=== PATIENT | male | born 1955 | race Caucasian/White ===

== ENCOUNTER → 2020-09-15 13:39 | Outpatient (BNVA) | payer MEDICARE, SELFPAY | PROVIDERS: PCP Internal Medicine; Referring Provider Internal Medicine; Visit Provider Internal Medicine | DX: I48.92 Unspecified atrial flutter (principal); Z51.81 Encounter for therapeutic drug level monitoring; Z79.01 Long term (current) use of anticoagulants | CPT/HCPCS: 85610 ==

== ENCOUNTER → 2020-10-13 13:00 | Outpatient (BNVA) | payer MEDICARE, SELFPAY | PROVIDERS: PCP Internal Medicine; Visit Provider Internal Medicine | DX: I48.92 Unspecified atrial flutter (principal); Z51.81 Encounter for therapeutic drug level monitoring; Z79.01 Long term (current) use of anticoagulants | CPT/HCPCS: 85610; 99211 ==

== ENCOUNTER → 2020-11-09 14:30 | Outpatient (BNVA) | payer MEDICARE, SELFPAY | PROVIDERS: PCP Internal Medicine; Visit Provider Internal Medicine | DX: I48.92 Unspecified atrial flutter (principal); Z51.81 Encounter for therapeutic drug level monitoring; Z79.01 Long term (current) use of anticoagulants | CPT/HCPCS: 85610; 99211 ==

== ENCOUNTER → 2020-11-21 14:22 | Outpatient (BNVA) | payer MEDICARE, SELFPAY | PROVIDERS: PCP Internal Medicine; Visit Provider Internal Medicine | DX: I48.92 Unspecified atrial flutter (principal); Z51.81 Encounter for therapeutic drug level monitoring; Z79.01 Long term (current) use of anticoagulants | CPT/HCPCS: 85610; 99211 ==

== ENCOUNTER → 2020-12-05 14:43 | Outpatient (BNVA) | payer MEDICARE, SELFPAY | PROVIDERS: PCP Internal Medicine; Visit Provider Internal Medicine | DX: I48.92 Unspecified atrial flutter (principal); Z51.81 Encounter for therapeutic drug level monitoring; Z79.01 Long term (current) use of anticoagulants | CPT/HCPCS: 85610; 99211 ==

== ENCOUNTER → 2020-12-26 14:19 | Outpatient (BNVA) | payer MEDICARE, SELFPAY | PROVIDERS: PCP Internal Medicine; Visit Provider Internal Medicine | DX: I48.92 Unspecified atrial flutter (principal); Z79.01 Long term (current) use of anticoagulants; Z51.81 Encounter for therapeutic drug level monitoring | CPT/HCPCS: 85610; 99211 ==

== ENCOUNTER → 2021-01-23 13:51 | Outpatient (BNVA) | payer MEDICARE, SELFPAY | PROVIDERS: PCP Internal Medicine; Visit Provider Internal Medicine | DX: I48.92 Unspecified atrial flutter (principal); Z51.81 Encounter for therapeutic drug level monitoring; Z79.01 Long term (current) use of anticoagulants | CPT/HCPCS: 85610; 99211 ==

== ENCOUNTER → 2021-02-23 13:58 | Outpatient (BNVA) | payer MEDICARE, SELFPAY | PROVIDERS: PCP Internal Medicine; Visit Provider Internal Medicine | DX: I48.92 Unspecified atrial flutter (principal); Z51.81 Encounter for therapeutic drug level monitoring; Z79.01 Long term (current) use of anticoagulants | CPT/HCPCS: 85610; 99211 ==

== ENCOUNTER → 2021-03-10 13:23 | Outpatient (BNVA) | payer MEDICARE, SELFPAY | PROVIDERS: PCP Internal Medicine; Visit Provider Internal Medicine | DX: I48.92 Unspecified atrial flutter (principal); Z79.01 Long term (current) use of anticoagulants; Z51.81 Encounter for therapeutic drug level monitoring | CPT/HCPCS: 85610; 99211 ==

== ENCOUNTER → 2021-03-29 13:41 | Outpatient (BNVA) | payer MEDICARE, SELFPAY | PROVIDERS: PCP Internal Medicine; Visit Provider Internal Medicine | DX: I48.92 Unspecified atrial flutter (principal); Z51.81 Encounter for therapeutic drug level monitoring; Z79.01 Long term (current) use of anticoagulants | CPT/HCPCS: 85610; 99211 ==

== ENCOUNTER → 2021-04-28 08:52 | Outpatient (BNVA) | payer MEDICARE, SELFPAY | PROVIDERS: PCP Internal Medicine; Visit Provider Internal Medicine | DX: I48.92 Unspecified atrial flutter (principal); Z51.81 Encounter for therapeutic drug level monitoring; Z79.01 Long term (current) use of anticoagulants | CPT/HCPCS: 85610; 99211 ==

== ENCOUNTER → 2021-05-26 13:42 | Outpatient (BNVA) | payer MEDICARE, SELFPAY | PROVIDERS: PCP Internal Medicine; Visit Provider Internal Medicine | DX: I48.92 Unspecified atrial flutter (principal); Z51.81 Encounter for therapeutic drug level monitoring; Z79.01 Long term (current) use of anticoagulants | CPT/HCPCS: 85610; 99211 ==

== ENCOUNTER → 2021-06-30 13:55 | Outpatient (BNVA) | payer MEDICARE, SELFPAY | PROVIDERS: PCP Internal Medicine; Visit Provider Internal Medicine | DX: I48.92 Unspecified atrial flutter (principal); Z51.81 Encounter for therapeutic drug level monitoring; Z79.01 Long term (current) use of anticoagulants | CPT/HCPCS: 85610; 99211 ==

== ENCOUNTER → 2021-08-09 09:31 | Outpatient (BNVA) | payer MEDICARE, SELFPAY | PROVIDERS: PCP Internal Medicine; Visit Provider Internal Medicine | DX: I48.92 Unspecified atrial flutter (principal); Z51.81 Encounter for therapeutic drug level monitoring; Z79.01 Long term (current) use of anticoagulants | CPT/HCPCS: 85610; 99211 ==

== ENCOUNTER → 2021-09-08 13:39 | Outpatient (BNVA) | payer MEDICARE, SELFPAY | PROVIDERS: PCP Internal Medicine; Visit Provider Internal Medicine | DX: I48.92 Unspecified atrial flutter (principal); Z51.81 Encounter for therapeutic drug level monitoring; Z79.01 Long term (current) use of anticoagulants | CPT/HCPCS: 85610; 99211 ==

== ENCOUNTER → 2021-10-06 13:49 | Outpatient (BNVA) | payer MEDICARE, SELFPAY | PROVIDERS: PCP Internal Medicine; Visit Provider Internal Medicine | DX: I48.92 Unspecified atrial flutter (principal); Z51.81 Encounter for therapeutic drug level monitoring; Z79.01 Long term (current) use of anticoagulants | CPT/HCPCS: 85610; 99211 ==

== ENCOUNTER → 2021-11-03 14:18 | Outpatient (BNVA) | payer MEDICARE, SELFPAY | PROVIDERS: PCP Internal Medicine; Visit Provider Internal Medicine | DX: I48.92 Unspecified atrial flutter (principal); Z51.81 Encounter for therapeutic drug level monitoring; Z79.01 Long term (current) use of anticoagulants | CPT/HCPCS: 85610; 99211 ==

== ENCOUNTER → 2021-12-08 13:29 | Outpatient (BNVA) | payer MEDICARE, SELFPAY | PROVIDERS: PCP Internal Medicine; Visit Provider Internal Medicine | DX: I48.92 Unspecified atrial flutter (principal); Z51.81 Encounter for therapeutic drug level monitoring; Z79.01 Long term (current) use of anticoagulants | CPT/HCPCS: 85610; 99211 ==

== ENCOUNTER → 2021-12-22 13:37 | Outpatient (BNVA) | payer MEDICARE, SELFPAY | PROVIDERS: PCP Internal Medicine; Visit Provider Internal Medicine | DX: I48.92 Unspecified atrial flutter (principal); Z51.81 Encounter for therapeutic drug level monitoring; Z79.01 Long term (current) use of anticoagulants | CPT/HCPCS: 85610; 99211 ==

== ENCOUNTER → 2022-01-19 13:59 | Outpatient (BNVA) | payer MEDICARE, SELFPAY | PROVIDERS: PCP Internal Medicine; Visit Provider Internal Medicine | DX: I48.92 Unspecified atrial flutter (principal); Z51.81 Encounter for therapeutic drug level monitoring; Z79.01 Long term (current) use of anticoagulants | CPT/HCPCS: 85610; 99211 ==

== ENCOUNTER → 2022-02-14 14:53 | Outpatient (BNVA) | payer MEDICARE, SELFPAY | PROVIDERS: PCP Internal Medicine; Visit Provider Internal Medicine | DX: I48.92 Unspecified atrial flutter (principal); Z51.81 Encounter for therapeutic drug level monitoring; Z79.01 Long term (current) use of anticoagulants | CPT/HCPCS: 85610; 99211 ==

== ENCOUNTER → 2022-03-14 13:40 | Outpatient (BNVA) | payer MEDICARE, SELFPAY | PROVIDERS: PCP Internal Medicine; Visit Provider Internal Medicine | DX: I48.92 Unspecified atrial flutter (principal); Z79.01 Long term (current) use of anticoagulants; Z51.81 Encounter for therapeutic drug level monitoring | CPT/HCPCS: 85610; 99211 ==

== ENCOUNTER → 2022-04-04 13:57 | Outpatient (BNVA) | payer MEDICARE, SELFPAY | PROVIDERS: PCP Internal Medicine; Visit Provider Internal Medicine | DX: I48.92 Unspecified atrial flutter (principal); Z79.01 Long term (current) use of anticoagulants; Z51.81 Encounter for therapeutic drug level monitoring | CPT/HCPCS: 85610; 99211 ==

== ENCOUNTER → 2022-05-09 13:54 | Outpatient (BNVA) | payer MEDICARE, SELFPAY | PROVIDERS: PCP Internal Medicine; Visit Provider Internal Medicine | DX: I48.92 Unspecified atrial flutter (principal); Z51.81 Encounter for therapeutic drug level monitoring; Z79.01 Long term (current) use of anticoagulants | CPT/HCPCS: 85610; 99211 ==

== ENCOUNTER → 2022-06-06 13:54 | Outpatient (BNVA) | payer MEDICARE, SELFPAY | PROVIDERS: PCP Internal Medicine; Visit Provider Internal Medicine | DX: Z79.01 Long term (current) use of anticoagulants (principal) | CPT/HCPCS: 85610; 99211 ==

== ENCOUNTER → 2022-07-04 13:00 | Outpatient (BNVA) | payer MEDICARE, SELFPAY | PROVIDERS: PCP Internal Medicine; Visit Provider Internal Medicine | DX: I48.92 Unspecified atrial flutter (principal); Z79.01 Long term (current) use of anticoagulants; Z51.81 Encounter for therapeutic drug level monitoring | CPT/HCPCS: 85610; 99211 ==

== ENCOUNTER → 2022-07-31 13:42 | Outpatient (BNVA) | payer MEDICARE, SELFPAY | PROVIDERS: PCP Internal Medicine; Visit Provider Internal Medicine | DX: I48.92 Unspecified atrial flutter (principal); Z51.81 Encounter for therapeutic drug level monitoring; Z79.01 Long term (current) use of anticoagulants | CPT/HCPCS: 85610; 99211 ==

== ENCOUNTER → 2022-08-07 13:06 | Outpatient (BNVA) | payer MEDICARE, SELFPAY | PROVIDERS: PCP Internal Medicine; Visit Provider Internal Medicine | DX: I48.92 Unspecified atrial flutter (principal); Z79.01 Long term (current) use of anticoagulants; Z51.81 Encounter for therapeutic drug level monitoring | CPT/HCPCS: 85610; 99211 ==

== ENCOUNTER → 2022-09-03 13:49 | Outpatient (BNVA) | payer MEDICARE, SELFPAY | PROVIDERS: PCP Internal Medicine; Visit Provider Internal Medicine | DX: I48.92 Unspecified atrial flutter (principal); Z79.01 Long term (current) use of anticoagulants; Z51.81 Encounter for therapeutic drug level monitoring | CPT/HCPCS: 85610; 99211 ==

== ENCOUNTER → 2022-09-18 13:25 | Outpatient (BNVA) | payer MEDICARE, SELFPAY | PROVIDERS: PCP Internal Medicine; Visit Provider Internal Medicine | DX: I48.92 Unspecified atrial flutter (principal); Z79.01 Long term (current) use of anticoagulants; Z51.81 Encounter for therapeutic drug level monitoring | CPT/HCPCS: 85610; 99211 ==

== ENCOUNTER → 2022-10-16 13:48 | Outpatient (BNVA) | payer MEDICARE, SELFPAY | PROVIDERS: PCP Internal Medicine; Visit Provider Internal Medicine | DX: I48.92 Unspecified atrial flutter (principal); Z51.81 Encounter for therapeutic drug level monitoring; Z79.01 Long term (current) use of anticoagulants | CPT/HCPCS: 85610; 99212 ==

== ENCOUNTER → 2022-11-20 13:43 | Outpatient (BNVA) | payer MEDICARE, SELFPAY | PROVIDERS: PCP Internal Medicine; Visit Provider Internal Medicine | DX: I48.92 Unspecified atrial flutter (principal); Z79.01 Long term (current) use of anticoagulants; Z51.81 Encounter for therapeutic drug level monitoring | CPT/HCPCS: 85610; 99211 ==

== ENCOUNTER → 2022-12-21 13:41 | Outpatient (BNVA) | payer MEDICARE, SELFPAY | PROVIDERS: PCP Internal Medicine; Visit Provider Internal Medicine | DX: I48.92 Unspecified atrial flutter (principal); Z79.01 Long term (current) use of anticoagulants; Z51.81 Encounter for therapeutic drug level monitoring | CPT/HCPCS: 85610; 99211 ==

== ENCOUNTER → 2023-01-23 13:59 | Outpatient (BNVA) | payer MEDICARE, SELFPAY | PROVIDERS: PCP Internal Medicine; Visit Provider Internal Medicine | DX: I48.92 Unspecified atrial flutter (principal); Z79.01 Long term (current) use of anticoagulants; Z51.81 Encounter for therapeutic drug level monitoring | CPT/HCPCS: 85610; 99211 ==

== ENCOUNTER → 2023-02-18 09:36 | Outpatient (BNVA) | payer MEDICARE, SELFPAY | PROVIDERS: PCP Internal Medicine; Visit Provider Internal Medicine | DX: I48.92 Unspecified atrial flutter (principal); Z79.01 Long term (current) use of anticoagulants; Z51.81 Encounter for therapeutic drug level monitoring | CPT/HCPCS: 85610; 99211 ==

== ENCOUNTER → 2023-03-20 13:50 | Outpatient (BNVA) | payer MEDICARE, SELFPAY | PROVIDERS: PCP Internal Medicine; Visit Provider Internal Medicine | DX: I48.92 Unspecified atrial flutter (principal); Z79.01 Long term (current) use of anticoagulants; Z51.81 Encounter for therapeutic drug level monitoring | CPT/HCPCS: 85610; 99211 ==

== ENCOUNTER → 2023-04-10 14:02 | Outpatient (BNVA) | payer MEDICARE, SELFPAY | PROVIDERS: PCP Internal Medicine; Visit Provider Internal Medicine | DX: I48.92 Unspecified atrial flutter (principal); Z79.01 Long term (current) use of anticoagulants; Z51.81 Encounter for therapeutic drug level monitoring | CPT/HCPCS: 85610; 99211 ==

== ENCOUNTER → 2023-04-16 14:06 | Outpatient (BNVA) | payer MEDICARE, SELFPAY | PROVIDERS: PCP Internal Medicine; Visit Provider Internal Medicine | DX: I48.92 Unspecified atrial flutter (principal); Z79.01 Long term (current) use of anticoagulants; Z51.81 Encounter for therapeutic drug level monitoring | CPT/HCPCS: 85610; 99211 ==

== ENCOUNTER → 2023-05-14 14:32 | Outpatient (BNVA) | payer MEDICARE, SELFPAY | PROVIDERS: PCP Internal Medicine; Visit Provider Internal Medicine | DX: I48.92 Unspecified atrial flutter (principal); Z79.01 Long term (current) use of anticoagulants; Z51.81 Encounter for therapeutic drug level monitoring | CPT/HCPCS: 85610; 99211 ==

== ENCOUNTER 2023-06-11 14:38 | Outpatient (AMB) | payer MEDICARE, SELFPAY ==
[2023-06-11 14:52] LABS: Prothrombin Time Whole Bld POC 35.3 sec (11.1-13.5); ~PT, ~INR - Anti Coag Clinic 2.9 (0.9-1.1)
--- NOTE | 2023-06-11 15:06 | MHC.OFFVISCO ---
Intake Intake Visit Reasons: Anticoagulation Allergies No Known Allergies Allergy (Verified 06/11/23 14:41) Medication List - Last Reconciled 06/11/23 by Ivana Ritchie RN abiraterone 1,000 mg PO DAILY bicalutamide (Casodex) 50 mg PO DAILY citalopram 20 mg PO DAILY cyclobenzaprine 5 mg PO BEDTIME PRN diltiazem HCl ER mg PO furosemide 40 mg PO DAILY leuprolide (Lupron Depot) IM levothyroxine 100 mcg PO DAILY losartan 100 mg PO DAILY metformin mg PO nitroglycerin 0.4 mg sublingual pantoprazole 40 mg PO DAILY pravastatin mg PO prednisone 5 mg PO DAILY tramadol 50 mg PO BID PRN warfarin (Jantoven) 5 mg See Protocol PO DAILY Nursing Note INR: 2.9 in therapeutic range Medications and supplements reviewed PT DX WITH PROSTATE CANCER 04/2023 AND HAS STARTED TREATMENT: CASODEX 50MG PO DAILY ( CAN RAISE THE INR - ONSET DELAYED) ON NOW X 1 MONTH ABIRATERONE(ZYTIGA) 1000MG PO DAILY PREDNISONE 5MG PO DAILY LUPRON Q 3 MONTHS 07/09/23 PROSTATE RADIATION SEEDS TO BE IMPLANTED AND TO BE OFF WAFARIN X 1 WEEK PRIOR. CALCIUM 1200MG PO DAILY VIT D3 DAILY HAS BRUISING ON HIS ARMS - NOT MORE THAN USUAL Bleeding, bruising, clotting discussed Nutritional guidance given - INCREASE GREENS JUST A LITTLE Dose: KEEP SAME DOSE FOR NOW 5MG X 4 DAYS/ 2.5MG MWF F/U INR: 07/01/23 WILL CALL UROLOGY IF INR IS TO BE SENT TO THEM PRIOR PROCEDURE Patient verbalizes understanding of instructions given Coding Level of Care Code Est Patient Level 1 Diagnoses Current use of anticoagulant therapy Z79.01 Assessment & Plan Assessment & Plan (1) Current use of anticoagulant therapy: Code(s): Z79.01 - prison (current) use of anticoagulants Category: Medical Medications: New bicalutamide (Casodex) 50 mg PO DAILY prednisone 5 mg PO DAILY abiraterone must be taken on empty stomach, at least 1 hr before or 2 hrs after a meal/food 1,000 mg PO DAILY leuprolide (Lupron Depot) IM [CALCIUM] PO cholecalciferol (vitamin D3) (Vitamin D3) PO
== END 2023-06-11 15:21 | disposition home or self-care (01) ==
LOC: HO.ACS 14:38
PROVIDERS: PCP Internal Medicine; Visit Provider Internal Medicine
DX: Z79.01 Long term (current) use of anticoagulants (principal)

== ENCOUNTER → 2023-06-11 14:38 | Outpatient (BNVA) | payer MEDICARE, SELFPAY | PROVIDERS: PCP Internal Medicine; Visit Provider Internal Medicine | DX: I48.92 Unspecified atrial flutter (principal); Z79.01 Long term (current) use of anticoagulants; Z51.81 Encounter for therapeutic drug level monitoring | CPT/HCPCS: 85610; 99211 ==

== ENCOUNTER 2023-07-01 14:38 | Outpatient (AMB) | payer MEDICARE, SELFPAY ==
--- NOTE | 2023-07-01 14:59 | MHC.OFFVISCO ---
Intake Intake Visit Reasons: Anticoagulation Allergies No Known Allergies Allergy (Verified 07/01/23 14:50) Medication List - Last Reconciled 07/01/23 by Donna Gruber RN abiraterone 1,000 mg PO DAILY [CALCIUM PO] cholecalciferol (vitamin D3) (Vitamin D3) PO citalopram 20 mg PO DAILY cyclobenzaprine 5 mg PO BEDTIME PRN diltiazem HCl ER mg PO furosemide 40 mg PO DAILY leuprolide (Lupron Depot) IM levothyroxine 100 mcg PO DAILY losartan 100 mg PO DAILY metformin mg PO nitroglycerin 0.4 mg sublingual pantoprazole 40 mg PO DAILY pravastatin mg PO prednisone 5 mg PO DAILY tramadol 50 mg PO BID PRN warfarin (Jantoven) 5 mg See Protocol PO DAILY Nursing Note INR 3.1-?? out of therapeutic range Medications and supplements reviewed Patient status: pt scheduled for implanting of seeds/prostate on 07/09/23 Medications or supplements: pt states no longer taking casodex, pt to have lupron injection 07/03/23- no interaction per micromedex Diet: same Denies any signs and symptoms of bleeding or clotting or unusual bruising Bleeding, bruising, clotting discussed Nutritional guidance given: eat greens to lower inr Dose: cont reg 2.5mg x 3, 5mg x 4 then hold per cardiology without lovenox bridge F/U INR Date : 07/12/23 Patient verbalizing understanding of instructions given. 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
[2023-07-01 15:01] LABS: Prothrombin Time Whole Bld POC 37.3 sec (11.1-13.5); ~PT, ~INR - Anti Coag Clinic 3.1 (0.9-1.1)
== END 2023-07-01 15:55 | disposition home or self-care (01) ==
LOC: HO.ACS 14:38
PROVIDERS: PCP Internal Medicine; Visit Provider Internal Medicine
DX: Z79.01 Long term (current) use of anticoagulants (principal)

== ENCOUNTER → 2023-07-01 14:38 | Outpatient (BNVA) | payer MEDICARE, SELFPAY | PROVIDERS: PCP Internal Medicine; Visit Provider Internal Medicine | DX: I48.92 Unspecified atrial flutter (principal); Z79.01 Long term (current) use of anticoagulants; Z51.81 Encounter for therapeutic drug level monitoring | CPT/HCPCS: 85610; 99212 ==

== ENCOUNTER 2023-07-08 13:41 | Outpatient (AMB) | payer MEDICARE, SELFPAY ==
[2023-07-08 13:57] LABS: Prothrombin Time Whole Bld POC 13.3 sec (11.1-13.5); ~PT, ~INR - Anti Coag Clinic 1.1 (0.9-1.1)
--- NOTE | 2023-07-08 14:11 | MHC.OFFVISCO ---
Intake Intake Visit Reasons: Anticoagulation Allergies No Known Allergies Allergy (Verified 07/08/23 13:49) Medication List - Last Reconciled 07/08/23 by Ivana Ritchie RN abiraterone 1,000 mg PO DAILY [CALCIUM PO] cholecalciferol (vitamin D3) (Vitamin D3) PO ciprofloxacin HCl 500 mg PO DAILY citalopram 20 mg PO DAILY cyclobenzaprine 5 mg PO BEDTIME PRN diltiazem HCl 300 mg PO DAILY furosemide 40 mg PO DAILY leuprolide (Lupron Depot) IM levothyroxine 100 mcg PO DAILY losartan 100 mg PO DAILY metformin mg PO nitroglycerin 0.4 mg sublingual pantoprazole 40 mg PO DAILY pravastatin mg PO prednisone 5 mg PO DAILY tizanidine 2 mg PO BEDTIME tramadol 50 mg PO BID PRN warfarin (Jantoven) 5 mg See Protocol PO DAILY Nursing Note INR 1.1? out of therapeutic range FOR MEDICAL PROCEDURE: PROSTATE SEE IMPLANTS AT [facility] TOMORROW Medications and supplements reviewed Patient status: HAS HELD WARFARIN X 5 DAYS Medications or supplements: NO NEW MEDS - WILL TAKE ANTBX DAY OF PROCEDURE Diet: GOOD Denies any signs and symptoms of bleeding or clotting or unusual bruising Bleeding, bruising, clotting discussed Nutritional guidance given: AVOID GREENS UNTIL INR 2.0 M EAT ORANGE AND REDS TO HELP RAISE THE INR POMEGRANIT AND CRANBERRY JUICE CAN HELP RAISE THE INR Dose: HOLD X 5 DAYS THEN RESUME DAY OF PROCEDURE 07/09/23 OR PER UROLOGY, F/U INR 07/12/23 OR 3-5 DAYS PER PT STARTING WARFARIN F/U INR Date: 07/12/23 OR PER MD patient verbalizing understanding of instructions given. Coding Level of Care Code Est Patient Level 1 Diagnoses Current use of anticoagulant therapy Z79.01 Results AMB INR Fingerstick AMB INR Fingerstick 1.1 Last Edit by Ivana Rithcie RN on 07/08/23 13:57 MANUAL ENTRY Assessment & Plan Assessment & Plan (1) Current use of anticoagulant therapy: Code(s): Z79.01 - [facility] (current) use of anticoagulants Category: Medical
== END 2023-07-08 14:25 | disposition home or self-care (01) ==
LOC: HO.ACS 13:41
PROVIDERS: PCP Internal Medicine; Visit Provider Internal Medicine
DX: Z79.01 Long term (current) use of anticoagulants (principal)

== ENCOUNTER → 2023-07-08 13:41 | Outpatient (BNVA) | payer MEDICARE, SELFPAY | PROVIDERS: PCP Internal Medicine; Visit Provider Internal Medicine | DX: I48.92 Unspecified atrial flutter (principal); Z79.01 Long term (current) use of anticoagulants; Z51.81 Encounter for therapeutic drug level monitoring | CPT/HCPCS: 85610; 99211 ==

== ENCOUNTER 2023-07-15 14:51 | Outpatient (AMB) | payer MEDICARE, SELFPAY ==
[2023-07-15 15:03] LABS: Prothrombin Time Whole Bld POC 17.9 sec (11.1-13.5); ~PT, ~INR - Anti Coag Clinic 1.5 (0.9-1.1)
--- NOTE | 2023-07-15 15:09 | MHC.OFFVISCO ---
Intake Intake Visit Reasons: Anticoagulation Allergies No Known Allergies Allergy (Verified 07/15/23 14:56) Medication List - Last Reconciled 07/15/23 by Ivana Ritchie RN abiraterone 1,000 mg PO DAILY [CALCIUM PO] cholecalciferol (vitamin D3) (Vitamin D3) PO ciprofloxacin HCl 500 mg PO DAILY citalopram 20 mg PO DAILY cyclobenzaprine 5 mg PO BEDTIME PRN diltiazem HCl 300 mg PO DAILY furosemide 40 mg PO DAILY leuprolide (Lupron Depot) IM levothyroxine 100 mcg PO DAILY losartan 100 mg PO DAILY metformin mg PO nitroglycerin 0.4 mg sublingual pantoprazole 40 mg PO DAILY pravastatin mg PO prednisone 5 mg PO DAILY tizanidine 2 mg PO BEDTIME tramadol 50 mg PO BID PRN warfarin (Jantoven) 5 mg See Protocol PO DAILY Nursing Note INR 1.5 out of therapeutic range Medications and supplements reviewed Patient status: PT IS S/P PROSTATE SEED IMPLANT X 3- NO COMPLICATIONS OR BLEEDING, TO START RADIATION IN [place] END OF JULY, TO HAVE CT SCAN IN NEAR FUTURE FOR MAPPING Medications or supplements: PT ON ABIRATONE AND LOW DOSE PREDNISONE TO TAKE STOOL SOFTENERS AND MIRALCX PRIOR TO RADIATION - HE IS NOT SURE IF THIS IS GOING TO BE ARDEN OF JUST TO CLEAR THE BOWELS PRIOR FIRST TREATMENT Diet: GOOD Denies any signs and symptoms of bleeding or clotting or unusual bruising Bleeding, bruising, clotting discussed Nutritional guidance given: AVOID ALL GREENS UNTIL INR THERAPEUTIC Dose: INCREASE WEEKLY DOSE 5MG X 5 DAYS/ 2.5MG X 2 DAYS F/U INR Date: 2 DAYS ?? Patient verbalizing understanding of instructions given. Coding Level of Care Code Est Patient Level 1 Diagnoses Current use of anticoagulant therapy Z79.01 Assessment & Plan Assessment & Plan (1) Current use of anticoagulant therapy: Code(s): Z79.01 - prison (current) use of anticoagulants Category: Medical
== END 2023-07-15 15:18 | disposition home or self-care (01) ==
LOC: HO.ACS 14:51
PROVIDERS: PCP Internal Medicine; Visit Provider Internal Medicine
DX: Z79.01 Long term (current) use of anticoagulants (principal)

== ENCOUNTER → 2023-07-15 14:51 | Outpatient (BNVA) | payer MEDICARE, SELFPAY | PROVIDERS: PCP Internal Medicine; Visit Provider Internal Medicine | DX: I48.92 Unspecified atrial flutter (principal); Z79.01 Long term (current) use of anticoagulants; Z51.81 Encounter for therapeutic drug level monitoring | CPT/HCPCS: 85610; 99211 ==

== ENCOUNTER 2023-07-17 08:42 | Outpatient (AMB) | payer MEDICARE, SELFPAY ==
[2023-07-17 08:58] LABS: Prothrombin Time Whole Bld POC 21.1 sec (11.1-13.5); ~PT, ~INR - Anti Coag Clinic 1.8 (0.9-1.1)
--- NOTE | 2023-07-17 09:02 | MHC.OFFVISCO ---
Intake Intake Visit Reasons: Anticoagulation Allergies No Known Allergies Allergy (Verified 07/17/23 08:45) Medication List - Last Reconciled 07/17/23 by Gaby Gipson RN abiraterone 1,000 mg PO DAILY [CALCIUM PO] cholecalciferol (vitamin D3) (Vitamin D3) PO ciprofloxacin HCl 500 mg PO DAILY citalopram 20 mg PO DAILY cyclobenzaprine 5 mg PO BEDTIME PRN diltiazem HCl 300 mg PO DAILY furosemide 40 mg PO DAILY leuprolide (Lupron Depot) IM levothyroxine 100 mcg PO DAILY losartan 100 mg PO DAILY metformin mg PO nitroglycerin 0.4 mg sublingual pantoprazole 40 mg PO DAILY pravastatin mg PO prednisone 5 mg PO DAILY tizanidine 2 mg PO BEDTIME tramadol 50 mg PO BID PRN warfarin (Jantoven) 5 mg See Protocol PO DAILY Nursing Note NO CP,SOB,DIET/MED CHANGES,FALLS OR SX OF BLEEDING. 5MGM TODAY THEN RESUME PREVIOUS WEEKLY DOSE AND FOLLOW-UP ON 07/23 PRIOR TO PROCEDURE ON 07/24. GOOD UNDERSTANDING OF DOSING INSTR.OTONIEL TOMORROW Coding Level of Care Code Est Patient Level 1 Diagnoses Current use of anticoagulant therapy Z79.01 Results AMB INR Fingerstick AMB INR Fingerstick 1.8 Last Edit by Gaby Gipson RN on 07/17/23 09:00 Assessment & Plan Assessment & Plan (1) Current use of anticoagulant therapy: Code(s): Z79.01 - [facility] (current) use of anticoagulants Category: Medical
== END 2023-07-17 09:04 | disposition home or self-care (01) ==
LOC: HO.ACS 08:42
PROVIDERS: PCP Internal Medicine; Visit Provider Internal Medicine
DX: Z79.01 Long term (current) use of anticoagulants (principal)

== ENCOUNTER → 2023-07-17 08:42 | Outpatient (BNVA) | payer MEDICARE, SELFPAY | PROVIDERS: PCP Internal Medicine; Visit Provider Internal Medicine | DX: I48.92 Unspecified atrial flutter (principal); Z79.01 Long term (current) use of anticoagulants; Z51.81 Encounter for therapeutic drug level monitoring | CPT/HCPCS: 85610; 99211 ==

== ENCOUNTER 2023-07-23 14:48 | Outpatient (AMB) | payer MEDICARE, SELFPAY ==
[2023-07-23 14:52] LABS: Prothrombin Time Whole Bld POC 34.6 sec (11.1-13.5); ~PT, ~INR - Anti Coag Clinic 2.9 (0.9-1.1)
--- NOTE | 2023-07-23 15:03 | MHC.OFFVISCO ---
Intake Intake Visit Reasons: Anticoagulation Allergies No Known Allergies Allergy (Verified 07/23/23 14:48) Medication List - Last Reconciled 07/23/23 by Gaby Gipson RN abiraterone 1,000 mg PO DAILY [CALCIUM PO] cholecalciferol (vitamin D3) (Vitamin D3) PO ciprofloxacin HCl 500 mg PO DAILY citalopram 20 mg PO DAILY cyclobenzaprine 5 mg PO BEDTIME PRN diltiazem HCl 300 mg PO DAILY furosemide 40 mg PO DAILY leuprolide (Lupron Depot) IM levothyroxine 100 mcg PO DAILY losartan 100 mg PO DAILY metformin mg PO nitroglycerin 0.4 mg sublingual pantoprazole 40 mg PO DAILY pravastatin mg PO prednisone 5 mg PO DAILY tizanidine 2 mg PO BEDTIME tramadol 50 mg PO BID PRN warfarin (Jantoven) 5 mg See Protocol PO DAILY Nursing Note PT. TO BEGIN RADIATION IN [place] ON 08/01. WILL CONTINUE PRESENT PICKENS AND FOLLOW-UP HERE ON 08/16 PT.AGREES TO CALL [facility] IN MEANTIME IF ANY QUESTIONS/CONCERNS ARISE. GOOD UNDERSTANDING OF DOSING INSTR. 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
== END 2023-07-23 15:09 | disposition home or self-care (01) ==
LOC: HO.ACS 14:48
PROVIDERS: PCP Internal Medicine; Visit Provider Internal Medicine
DX: Z79.01 Long term (current) use of anticoagulants (principal)

== ENCOUNTER → 2023-07-23 14:48 | Outpatient (BNVA) | payer MEDICARE, SELFPAY | PROVIDERS: PCP Internal Medicine; Visit Provider Internal Medicine | DX: I48.92 Unspecified atrial flutter (principal); Z79.01 Long term (current) use of anticoagulants; Z51.81 Encounter for therapeutic drug level monitoring | CPT/HCPCS: 85610; 99211 ==

== ENCOUNTER 2023-08-16 15:39 | Outpatient (AMB) | payer MEDICARE, SELFPAY ==
[2023-08-16 15:48] LABS: Prothrombin Time Whole Bld POC 31.3 sec (11.1-13.5); ~PT, ~INR - Anti Coag Clinic 2.6 (0.9-1.1)
--- NOTE | 2023-08-16 15:51 | MHC.OFFVISCO ---
Intake Intake Visit Reasons: Anticoagulation Allergies No Known Allergies Allergy (Verified 08/16/23 15:39) Medication List - Last Reconciled 08/16/23 by Donna Foss, RN abiraterone 1,000 mg PO DAILY [CALCIUM PO] cholecalciferol (vitamin D3) (Vitamin D3) PO citalopram 20 mg PO DAILY cyclobenzaprine 5 mg PO BEDTIME PRN diltiazem HCl 300 mg PO DAILY furosemide 40 mg PO DAILY leuprolide (Lupron Depot) IM levothyroxine 100 mcg PO DAILY losartan 100 mg PO DAILY metformin mg PO nitroglycerin 0.4 mg sublingual pantoprazole 40 mg PO DAILY pravastatin mg PO prednisone 5 mg PO DAILY tizanidine 2 mg PO BEDTIME tramadol 50 mg PO BID PRN warfarin (Jantoven) 5 mg See Protocol PO DAILY Nursing Note Amb to [facility] feeling well, continues with radiation treatments in [place], started in July will complete 09/13 fatigued but lori rad treatments Medications and supplements reviewed No changes in health, diet, medications, or supplements Denies any unusual signs and symptoms of bruising, bleeding Denies any new Chest pain, SOB, or clotting INR:2.6 in therapeutic range Nutritional guidance given: balance greens and reds in diet, be consistent Dose: continue usual dosing;2.5mg x 3 days and 5mg x 4 days F/U INR:4 weeks Patient verbalizes understanding of instructions given with accurate read back/ teach back of dosing Coding Level of Care Code Est Patient Level 1 Diagnoses Current use of anticoagulant therapy Z79.01 Time Spent (min) 15 Assessment & Plan Assessment & Plan (1) Current use of anticoagulant therapy: Code(s): Z79.01 - care home (current) use of anticoagulants Category: Medical
== END 2023-08-16 15:55 | disposition home or self-care (01) ==
LOC: HO.ACS 15:39
PROVIDERS: PCP Internal Medicine; Visit Provider Internal Medicine
DX: Z79.01 Long term (current) use of anticoagulants (principal)

== ENCOUNTER → 2023-08-16 15:39 | Outpatient (BNVA) | payer MEDICARE, SELFPAY | PROVIDERS: PCP Internal Medicine; Visit Provider Internal Medicine | DX: I48.92 Unspecified atrial flutter (principal); Z79.01 Long term (current) use of anticoagulants; Z51.81 Encounter for therapeutic drug level monitoring | CPT/HCPCS: 85610; 99211 ==

== ENCOUNTER 2023-09-13 14:54 | Outpatient (AMB) | payer MEDICARE, SELFPAY ==
[2023-09-13 15:14] LABS: Prothrombin Time Whole Bld POC 37.4 sec (11.1-13.5); ~PT, ~INR - Anti Coag Clinic 3.1 (0.9-1.1)
--- NOTE | 2023-09-13 15:24 | MHC.OFFVISCO ---
Intake Intake Visit Reasons: Anticoagulation Allergies No Known Allergies Allergy (Verified 09/13/23 15:02) Medication List - Last Reconciled 09/13/23 by Ivana Ritchie RN abiraterone 1,000 mg PO DAILY [CALCIUM PO] cholecalciferol (vitamin D3) (Vitamin D3) PO citalopram 20 mg PO DAILY cyclobenzaprine 5 mg PO BEDTIME PRN dexamethasone 2 mg PO TID diltiazem HCl 300 mg PO DAILY furosemide 40 mg PO DAILY leuprolide (Lupron Depot) IM levothyroxine 100 mcg PO DAILY losartan 100 mg PO DAILY metformin mg PO nitroglycerin 0.4 mg sublingual pantoprazole 40 mg PO DAILY pravastatin mg PO prednisone 5 mg PO DAILY tizanidine 2 mg PO BEDTIME tramadol 50 mg PO BID PRN warfarin (Jantoven) 5 mg See Protocol PO DAILY Nursing Note INR: 3.1 ALMOST in therapeutic range Medications and supplements reviewed RADIATION TO T 8-9 TAKING ALOE VERA JUICE CAN RAISE THE INR, JUST STARTED LAST NIGHT HAS 1 MORE RADIATION LEFT 09/17/23, PROSTATE TX COMPLETED - HAD DIARRHEA AND TOOK IMMODIUM WITH RELIEF, DIARRHEA GONE NOW, Denies any signs and symptoms of bleeding or bruising or clotting. Bleeding, bruising, clotting discussed Nutritional guidance given FRUITS AND VEGETABLES TOLERATED Dose: DECREASE 5MG X 3 DAYS/ 2.5MG X 4 DAYS F/U INR: 1 WEEK DUE TO HEALTH AND MED CHANGES Patient verbalizes understanding of instructions given Coding Level of Care Code Est Patient Level 1 Diagnoses Current use of anticoagulant therapy Z79.01 Assessment & Plan Assessment & Plan (1) Current use of anticoagulant therapy: Code(s): Z79.01 - long-term (current) use of anticoagulants Category: Medical
== END 2023-09-13 15:33 | disposition home or self-care (01) ==
LOC: HO.ACS 14:54
PROVIDERS: PCP Internal Medicine; Visit Provider Internal Medicine
DX: Z79.01 Long term (current) use of anticoagulants (principal)

== ENCOUNTER → 2023-09-13 14:54 | Outpatient (BNVA) | payer MEDICARE, SELFPAY | PROVIDERS: PCP Internal Medicine; Visit Provider Internal Medicine | DX: I48.92 Unspecified atrial flutter (principal); Z79.01 Long term (current) use of anticoagulants; Z51.81 Encounter for therapeutic drug level monitoring | CPT/HCPCS: 85610; 99211 ==

== ENCOUNTER 2023-09-20 13:41 | Outpatient (AMB) | payer MEDICARE, SELFPAY ==
[2023-09-20 13:55] LABS: Prothrombin Time Whole Bld POC 37.7 sec (11.1-13.5); ~PT, ~INR - Anti Coag Clinic 3.1 (0.9-1.1)
--- NOTE | 2023-09-20 14:00 | MHC.OFFVISCO ---
Intake Intake Visit Reasons: Anticoagulation Allergies No Known Allergies Allergy (Verified 09/20/23 13:47) Medication List - Last Reconciled 09/20/23 by Ivana Ritchie RN abiraterone 1,000 mg PO DAILY [CALCIUM PO] cholecalciferol (vitamin D3) (Vitamin D3) PO citalopram 20 mg PO DAILY cyclobenzaprine 5 mg PO BEDTIME PRN diltiazem HCl 300 mg PO DAILY furosemide 40 mg PO DAILY leuprolide (Lupron Depot) IM levothyroxine 100 mcg PO DAILY losartan 100 mg PO DAILY metformin mg PO nitroglycerin 0.4 mg sublingual pantoprazole 40 mg PO DAILY pravastatin mg PO prednisone 5 mg PO DAILY tizanidine 2 mg PO BEDTIME tramadol 50 mg PO BID PRN warfarin (Jantoven) 5 mg See Protocol PO DAILY Nursing Note INR: 3.1 SLIGHTLY OVER therapeutic range Medications and supplements reviewed PT COMPLETED ALL RADIATION TREATMENTS, NO LONGER TAKING DEXAMETHASONE, STOPPED ALOVERA JUICE REMAINING ON HORMONE TX X 2 YRS, AND LOW DOSE PREDNISONE, Denies any signs and symptoms of bleeding or bruising or clotting. 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
== END 2023-09-20 14:07 | disposition home or self-care (01) ==
LOC: HO.ACS 13:41
PROVIDERS: PCP Internal Medicine; Visit Provider Internal Medicine
DX: Z79.01 Long term (current) use of anticoagulants (principal)

== ENCOUNTER → 2023-09-20 13:41 | Outpatient (BNVA) | payer MEDICARE, SELFPAY | PROVIDERS: PCP Internal Medicine; Visit Provider Internal Medicine | DX: I48.92 Unspecified atrial flutter (principal); Z51.81 Encounter for therapeutic drug level monitoring; Z79.01 Long term (current) use of anticoagulants | CPT/HCPCS: 85610; 99211 ==

== ENCOUNTER 2023-10-07 13:46 | Outpatient (AMB) | payer MEDICARE, SELFPAY ==
--- NOTE | 2023-10-07 14:22 | MHC.OFFVISCO ---
Intake Intake Visit Reasons: Anticoagulation Allergies No Known Allergies Allergy (Verified 10/07/23 14:07) Medication List - Last Reconciled 10/07/23 by Ivana Ritchie RN abiraterone 1,000 mg PO DAILY [CALCIUM PO] cholecalciferol (vitamin D3) (Vitamin D3) PO citalopram 20 mg PO DAILY cyclobenzaprine 5 mg PO BEDTIME PRN diltiazem HCl 300 mg PO DAILY furosemide 40 mg PO DAILY leuprolide (Lupron Depot) IM levothyroxine 100 mcg PO DAILY losartan 100 mg PO DAILY metformin mg PO nitroglycerin 0.4 mg sublingual pantoprazole 40 mg PO DAILY pravastatin mg PO prednisone 5 mg PO DAILY tizanidine 2 mg PO BEDTIME tramadol 50 mg PO BID PRN warfarin (Jantoven) 5 mg See Protocol PO DAILY Nursing Note INR: 1.9 in therapeutic range Medications and supplements reviewed feels tiered - still recovering form treatment, has multiple bruises, taking oc tramadol for back pain Denies any signs and symptoms of bleeding or bruising or clotting. Bleeding, bruising, clotting discussed Nutritional guidance given - EAT A MIX OF FRUITS AND VEGETABLES, NO GREENS TODAY M EAT ORANGE AND REDS Dose: 5MG SUN TUE [place]/ 2.5MG X 4 DAYS F/U INR: agreed for appt on 10/28/23 - REFUSED SOONER APPT Patient verbalizes understanding of instructions given Coding Level of Care Code Est Patient Level 1 Diagnoses Current use of anticoagulant therapy Z79.01 Results AMB INR Fingerstick AMB INR Fingerstick 1.9 Last Edit by Ivana Ritchie RN on 10/07/23 14:16 Assessment & Plan Assessment & Plan (1) Current use of anticoagulant therapy: Code(s): Z79.01 - half-way (current) use of anticoagulants Category: Medical
[2023-10-07 20:37] LABS: ~PT, ~INR - Anti Coag Clinic 1.9 (0.9-1.1)
== END 2023-10-07 14:28 | disposition home or self-care (01) ==
LOC: HO.ACS 13:46
PROVIDERS: PCP Internal Medicine; Visit Provider Internal Medicine
DX: Z79.01 Long term (current) use of anticoagulants (principal)

== ENCOUNTER → 2023-10-07 13:46 | Outpatient (BNVA) | payer MEDICARE, SELFPAY | PROVIDERS: PCP Internal Medicine; Visit Provider Internal Medicine | DX: I48.92 Unspecified atrial flutter (principal); Z79.01 Long term (current) use of anticoagulants; Z51.81 Encounter for therapeutic drug level monitoring | CPT/HCPCS: 85610; 99211 ==

== ENCOUNTER 2023-10-28 14:06 | Outpatient (AMB) | payer MEDICARE, SELFPAY ==
--- NOTE | 2023-10-28 14:14 | MHC.OFFVISCO ---
Intake Intake Visit Reasons: Anticoagulation Allergies No Known Allergies Allergy (Verified 10/28/23 14:06) Medication List - Last Reconciled 10/28/23 by Ivana Ritchie RN abiraterone 1,000 mg PO DAILY [CALCIUM PO] cholecalciferol (vitamin D3) (Vitamin D3) PO citalopram 20 mg PO DAILY cyclobenzaprine 5 mg PO BEDTIME PRN diltiazem HCl 300 mg PO DAILY furosemide 40 mg PO DAILY leuprolide (Lupron Depot) IM levothyroxine 100 mcg PO DAILY losartan 100 mg PO DAILY metformin mg PO nitroglycerin 0.4 mg sublingual pantoprazole 40 mg PO DAILY pravastatin mg PO prednisone 5 mg PO DAILY tizanidine 2 mg PO BEDTIME tramadol 50 mg PO BID PRN warfarin (Jantoven) 5 mg See Protocol PO DAILY Nursing Note INR: 2.5 in therapeutic range Medications and supplements reviewed No changes in health, diet, medications, or supplements, Denies any signs and symptoms of bleeding or bruising or clotting. Bleeding, bruising, clotting discussed Nutritional guidance given Dose: 5MG X 4 DAYS/ 2.5MG X 3 DAYS F/U INR: 3 WEEKS Patient verbalizes understanding of instructions given Coding Level of Care Code Est Patient Level 1 Results AMB INR Fingerstick AMB INR Fingerstick 2.5 Last Edit by Ivana Ritchie RN on 10/28/23 14:15 MANUAL ENTRY
[2023-10-29 08:13] LABS: Prothrombin Time Whole Bld POC 29.9 sec (11.1-13.5); ~PT, ~INR - Anti Coag Clinic 2.5 (0.9-1.1)
== END 2023-10-28 14:22 | disposition home or self-care (01) ==
LOC: HO.ACS 14:06
PROVIDERS: PCP Internal Medicine; Visit Provider Internal Medicine
DX: Z79.01 Long term (current) use of anticoagulants (principal)

== ENCOUNTER → 2023-10-28 14:06 | Outpatient (BNVA) | payer MEDICARE, SELFPAY | PROVIDERS: PCP Internal Medicine; Visit Provider Internal Medicine | DX: I48.92 Unspecified atrial flutter (principal); Z79.01 Long term (current) use of anticoagulants; Z51.81 Encounter for therapeutic drug level monitoring | CPT/HCPCS: 85610; 99211 ==

== ENCOUNTER 2023-11-18 13:43 | Outpatient (AMB) | payer MEDICARE, SELFPAY ==
[2023-11-18 13:48] LABS: Prothrombin Time Whole Bld POC 23.2 sec (11.1-13.5); ~PT, ~INR - Anti Coag Clinic 1.9 (0.9-1.1)
--- NOTE | 2023-11-18 13:53 | MHC.OFFVISCO ---
Intake Intake Visit Reasons: Anticoagulation Allergies No Known Allergies Allergy (Verified 11/18/23 13:44) Medication List - Last Reconciled 11/18/23 by Donna Foss RN abiraterone 1,000 mg PO DAILY [CALCIUM PO] cholecalciferol (vitamin D3) (Vitamin D3) PO citalopram 20 mg PO DAILY cyclobenzaprine 5 mg PO BEDTIME PRN diltiazem HCl 300 mg PO DAILY furosemide 40 mg PO DAILY leuprolide (Lupron Depot) IM levothyroxine 100 mcg PO DAILY losartan 100 mg PO DAILY metformin mg PO nitroglycerin 0.4 mg sublingual pantoprazole 40 mg PO DAILY pravastatin mg PO prednisone 5 mg PO DAILY tizanidine 2 mg PO BEDTIME tramadol 50 mg PO BID PRN warfarin (Jantoven) 5 mg See Protocol PO DAILY Nursing Note Amb to [facility] feeling well, sts his cataract surgery is 01/02 and 01/23, needs INR day before procedure, no warfarin hold, sts he is also trying to schedule in an epidural injection for January (5 day hold) Medications and supplements reviewed No changes in health, diet, medications, or supplements Denies any unusual signs and symptoms of bruising, bleeding Denies any new Chest pain, SOB, or clotting INR: 1.9 just below therapeutic range, sts he probably had more greens than usual Nutritional guidance given: no greens x 2 days then balance greens and reds in diet Dose: take 5mg today, 2.5mg tomorrow then follow usual dosing Saturday ( 2.5mg x 3 days and 5mg x 4 days); F/U INR: 4 weeks Patient verbalizes understanding of instructions given with accurate read back/ teach back of dosing Coding Level of Care Code Est Patient Level 1 Diagnoses Current use of anticoagulant therapy Z79.01 Time Spent (min) 15 Assessment & Plan Assessment & Plan (1) Current use of anticoagulant therapy: Code(s): Z79.01 - senior care (current) use of anticoagulants Category: Medical
== END 2023-11-18 13:59 | disposition home or self-care (01) ==
LOC: HO.ACS 13:43
PROVIDERS: PCP Internal Medicine; Visit Provider Internal Medicine
DX: Z79.01 Long term (current) use of anticoagulants (principal)

== ENCOUNTER → 2023-11-18 13:43 | Outpatient (BNVA) | payer MEDICARE, SELFPAY | PROVIDERS: PCP Internal Medicine; Visit Provider Internal Medicine | DX: I48.92 Unspecified atrial flutter (principal); Z79.01 Long term (current) use of anticoagulants; Z51.81 Encounter for therapeutic drug level monitoring | CPT/HCPCS: 85610; 99211 ==

== ENCOUNTER 2023-12-18 13:42 | Outpatient (AMB) | payer MEDICARE, SELFPAY ==
--- NOTE | 2023-12-18 13:43 | MHC.OFFVISCO ---
Intake Intake Visit Reasons: Anticoagulation Allergies No Known Allergies Allergy (Verified 12/18/23 13:43) Medication List - Last Reconciled 12/18/23 by Gaby Gipson RN abiraterone 1,000 mg PO DAILY [CALCIUM PO] cholecalciferol (vitamin D3) (Vitamin D3) PO citalopram 20 mg PO DAILY cyclobenzaprine 5 mg PO BEDTIME PRN diltiazem HCl 300 mg PO DAILY furosemide 40 mg PO DAILY leuprolide (Lupron Depot) IM levothyroxine 100 mcg PO DAILY losartan 100 mg PO DAILY metformin mg PO nitroglycerin 0.4 mg sublingual pantoprazole 40 mg PO DAILY pravastatin mg PO prednisone 5 mg PO DAILY tizanidine 2 mg PO BEDTIME tramadol 50 mg PO BID PRN warfarin (Jantoven) 5 mg See Protocol PO DAILY Nursing Note NO CP,SOB,DIET/MED CHANGES,FALLS OR SX OF BLEEDING. CONTINUE PRESENT DOSE AND FOLLOW-UP ON 12/31/23 PRIOR TO CATARACT SURGERY ON 01/02 GOOD UNDERSTANDING OF DOSING INSTR. Questionnaires HAS-BLED Does the patient had uncontrolled Hypertension?: No Does the patient have renal disease?: No Does the patient have liver disease?: No Does the patient have a history of stroke?: No Has the patient had major bleeding or predisposition to bleeding?: No Does the patient have labile INRs?: No Is the patient over 65 years of age?: Yes Is the patient on medications that gives them a predisposition to bleeding?: Yes Does the patient use alcohol?: Yes HAS-BLED Score: 3 CHADSVASC Age: 66-74 Gender: Male Does the patient have a history of CHF?: No Does the patient have a history of Hypertension?: Yes Does the patient have a history of Stroke/TIA/Thromboembolism?: No Does the patient have a history of Vascular Disease (prior IN, PAD or aortic plaque)?: No Does the patient have a history of Diabetes?: Yes CHADS VACS Score: 3 Milton Prediction Score Rsk VTE Active Cancer: Yes Previous VTE, excluding superficial vein thrombosis: No Reduced mobility: No Already known Thrombophilic Condition: No With-in last month Trauma and/or Surgery: No Elderly 70 year or older: No Heart and/or Respiratory Failure: No Acute Myocardial infarction and/or Ischemic Stroke: No Acute Infection and/or Rheumatologic Disorder: No Obesity (BMI 30 or greater): Yes Ongoing Hormonal Treatment: No Score: 4 Milton Score less than 4; Low Risk of VTE Milton Score 4 or greater; High Risk of VTE Coding Level of Care Code Est Patient Level 1 Diagnoses Current use of anticoagulant therapy Z79.01 Assessment & Plan Assessment & Plan (1) Current use of anticoagulant therapy: Code(s): 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
[2023-12-18 13:50] LABS: Prothrombin Time Whole Bld POC 31.6 sec (11.1-13.5); ~PT, ~INR - Anti Coag Clinic 2.6 (0.9-1.1)
== END 2023-12-18 14:01 | disposition home or self-care (01) ==
LOC: HO.ACS 13:42
PROVIDERS: PCP Internal Medicine; Visit Provider Internal Medicine
DX: Z79.01 Long term (current) use of anticoagulants (principal)

== ENCOUNTER → 2023-12-18 13:42 | Outpatient (BNVA) | payer MEDICARE, SELFPAY | PROVIDERS: PCP Internal Medicine; Visit Provider Internal Medicine | DX: I48.92 Unspecified atrial flutter (principal); Z79.01 Long term (current) use of anticoagulants; Z51.81 Encounter for therapeutic drug level monitoring | CPT/HCPCS: 85610; 99211 ==

== ENCOUNTER → 2023-12-31 13:42 | Outpatient (BNVA) | payer MEDICARE, SELFPAY | PROVIDERS: PCP Internal Medicine; Visit Provider Internal Medicine | DX: I48.92 Unspecified atrial flutter (principal); Z79.01 Long term (current) use of anticoagulants; Z51.81 Encounter for therapeutic drug level monitoring | CPT/HCPCS: 85610; 99211 ==

== ENCOUNTER 2024-01-08 13:57 | Outpatient (AMB) | payer MEDICARE, SELFPAY ==
--- NOTE | 2024-01-08 14:05 | MHC.OFFVISCO ---
Intake Intake Visit Reasons: Anticoagulation Allergies No Known Allergies Allergy (Verified 01/08/24 14:02) Medication List - Last Reconciled 01/08/24 by Donna Gruber RN abiraterone 1,000 mg PO DAILY [CALCIUM PO] cholecalciferol (vitamin D3) (Vitamin D3) PO citalopram 20 mg PO DAILY cyclobenzaprine 5 mg PO BEDTIME PRN diltiazem HCl 300 mg PO DAILY furosemide 40 mg PO DAILY leuprolide (Lupron Depot) IM levothyroxine 100 mcg PO DAILY losartan 100 mg PO DAILY metformin mg PO nitroglycerin 0.4 mg sublingual pantoprazole 40 mg PO DAILY pravastatin mg PO prednisone 5 mg PO DAILY tizanidine 2 mg PO BEDTIME tramadol 50 mg PO BID PRN warfarin (Jantoven) 5 mg See Protocol PO DAILY Nursing Note INR: 2.3- in therapeutic range of 2-3 Medications and supplements reviewed- pt finished course of prednisone and zpack for bronchitis No changes in health, diet, medications, or supplements, Denies any signs and symptoms of bleeding or bruising or clotting. Bleeding, bruising, clotting discussed Nutritional guidance given Dose: 2.5mg x 3, 5mg x 4 F/U INR: 01/21/24 Patient verbalizes understanding of instructions given pt to have cataract surg on 01/09/24 Coding Level of Care Code Est Patient Level 1 Diagnoses Current use of anticoagulant therapy Z79.01 Results AMB INR Fingerstick AMB INR Fingerstick 2.3 Last Edit by Donna Gruber RN on 01/08/24 14:08 interface delay Assessment & Plan Assessment & Plan (1) Current use of anticoagulant therapy: Code(s): Z79.01 - skilled nursing (current) use of anticoagulants Category: Medical
[2024-01-08 14:16] LABS: Prothrombin Time Whole Bld POC 27.5 sec (11.1-13.5); ~PT, ~INR - Anti Coag Clinic 2.3 (0.9-1.1)
== END 2024-01-08 14:33 | disposition home or self-care (01) ==
LOC: HO.ACS 13:57
PROVIDERS: PCP Internal Medicine; Visit Provider Internal Medicine
DX: Z79.01 Long term (current) use of anticoagulants (principal)

== ENCOUNTER → 2024-01-08 13:57 | Outpatient (BNVA) | payer MEDICARE, SELFPAY | PROVIDERS: PCP Internal Medicine; Visit Provider Internal Medicine | DX: I48.92 Unspecified atrial flutter (principal); Z79.01 Long term (current) use of anticoagulants; Z51.81 Encounter for therapeutic drug level monitoring | CPT/HCPCS: 85610; 99211 ==

== ENCOUNTER 2024-01-21 13:31 | Outpatient (AMB) | payer MEDICARE, SELFPAY ==
[2024-01-21 13:52] LABS: Prothrombin Time Whole Bld POC 30.7 sec (11.1-13.5); ~PT, ~INR - Anti Coag Clinic 2.6 (0.9-1.1)
--- NOTE | 2024-01-21 13:52 | MHC.OFFVISCO ---
Intake Intake Visit Reasons: Anticoagulation Allergies No Known Allergies Allergy (Verified 01/21/24 13:39) Medication List - Last Reconciled 01/21/24 by Donna Archer RN abiraterone 1,000 mg PO DAILY [CALCIUM PO] cholecalciferol (vitamin D3) (Vitamin D3) PO citalopram 20 mg PO DAILY cyclobenzaprine 5 mg PO BEDTIME PRN diltiazem HCl 300 mg PO DAILY furosemide 40 mg PO DAILY leuprolide (Lupron Depot) IM levothyroxine 100 mcg PO DAILY losartan 100 mg PO DAILY metformin mg PO nitroglycerin 0.4 mg sublingual pantoprazole 40 mg PO DAILY pravastatin mg PO prednisone 5 mg PO DAILY tizanidine 2 mg PO BEDTIME tramadol 50 mg PO BID PRN warfarin (Jantoven) 5 mg See Protocol PO DAILY Nursing Note INR: 2.6 in therapeutic range of 2-3 Medications and supplements reviewed No changes in diet, medications, or supplements, Pt states he will be having cataract surgery in 2 days, no warfarin hold, also scheduled for spinal injection 02/17 [facility] pain management, states he has to hold for 5 days, not aware of any lovenox bridge but encouraged to ask cardiology and PCP if any bridging needed. Denies any signs and symptoms of bleeding or unusual bruising or clotting. Bleeding, bruising, clotting discussed Nutritional guidance given: pt instructed to have a serving of greens evening before cataract surgery. Dose: continue same dose of 2.5mg X3 days and 5mg X 4 days F/U INR: 3 weeks Patient verbalizes understanding of instructions given Coding Level of Care Code Est Patient Level 1 Diagnoses Current use of anticoagulant therapy Z79.01 Results AMB INR Fingerstick AMB INR Fingerstick 2.6 Last Edit by Donna Archer RN on 01/21/24 13:49 interface delay Assessment & Plan Assessment & Plan (1) Current use of anticoagulant therapy: Code(s): Z79.01 - prison (current) use of anticoagulants Category: Medical
== END 2024-01-21 14:02 | disposition home or self-care (01) ==
LOC: HO.ACS 13:31
PROVIDERS: PCP Internal Medicine; Visit Provider Internal Medicine
DX: Z79.01 Long term (current) use of anticoagulants (principal)

== ENCOUNTER → 2024-01-21 13:31 | Outpatient (BNVA) | payer MEDICARE, SELFPAY | PROVIDERS: PCP Internal Medicine; Visit Provider Internal Medicine | DX: I48.92 Unspecified atrial flutter (principal); Z79.01 Long term (current) use of anticoagulants; Z51.81 Encounter for therapeutic drug level monitoring | CPT/HCPCS: 85610; 99211 ==

== ENCOUNTER 2024-02-10 14:27 | Outpatient (AMB) | payer MEDICARE, SELFPAY ==
[2024-02-10 14:51] LABS: Prothrombin Time Whole Bld POC 30.6 sec (11.1-13.5); ~PT, ~INR - Anti Coag Clinic 2.6 (0.9-1.1)
--- NOTE | 2024-02-10 15:05 | MHC.OFFVISCO ---
Intake Intake Visit Reasons: Anticoagulation Allergies No Known Allergies Allergy (Verified 02/10/24 14:45) Medication List - Last Reconciled 02/10/24 by Ivana Ritchie RN abiraterone 1,000 mg PO DAILY [CALCIUM PO] cholecalciferol (vitamin D3) (Vitamin D3) PO citalopram 20 mg PO DAILY cyclobenzaprine 5 mg PO BEDTIME PRN diltiazem HCl 300 mg PO DAILY furosemide 40 mg PO DAILY leuprolide (Lupron Depot) IM levothyroxine 100 mcg PO DAILY losartan 100 mg PO DAILY metformin mg PO nitroglycerin 0.4 mg sublingual pantoprazole 40 mg PO DAILY pravastatin mg PO prednisone 5 mg PO DAILY tizanidine 2 mg PO BEDTIME tramadol 50 mg PO BID PRN warfarin (Jantoven) 5 mg See Protocol PO DAILY Nursing Note INR: 2.6 in therapeutic range Medications and supplements reviewed TO HAVE SPINAL INJECTION, OFF WARFARIN X 5 DAYS, NO LOVENOX BRIDGE PER MD, No changes in diet, medications, or supplements, Denies any signs and symptoms of bleeding or bruising or clotting. 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
== END 2024-02-10 15:08 | disposition home or self-care (01) ==
LOC: HO.ACS 14:27
PROVIDERS: PCP Internal Medicine; Visit Provider Internal Medicine
DX: Z79.01 Long term (current) use of anticoagulants (principal)

== ENCOUNTER → 2024-02-10 14:27 | Outpatient (BNVA) | payer MEDICARE, SELFPAY | PROVIDERS: PCP Internal Medicine; Visit Provider Internal Medicine | DX: I48.92 Unspecified atrial flutter (principal); Z79.01 Long term (current) use of anticoagulants; Z51.81 Encounter for therapeutic drug level monitoring | CPT/HCPCS: 85610; 99211 ==

== ENCOUNTER 2024-02-18 09:08 | Outpatient (AMB) | payer MEDICARE, SELFPAY ==
[2024-02-18 09:13] LABS: Prothrombin Time Whole Bld POC 13.8 sec (11.1-13.5); ~PT, ~INR - Anti Coag Clinic 1.2 (0.9-1.1)
--- NOTE | 2024-02-18 09:19 | MHC.OFFVISCO ---
Intake Intake Visit Reasons: Anticoagulation Allergies No Known Allergies Allergy (Verified 02/18/24 09:08) Medication List - Last Reconciled 02/18/24 by Ivana Ritchie RN abiraterone 1,000 mg PO DAILY [CALCIUM PO] cholecalciferol (vitamin D3) (Vitamin D3) PO citalopram 20 mg PO DAILY cyclobenzaprine 5 mg PO BEDTIME PRN diltiazem HCl 300 mg PO DAILY furosemide 40 mg PO DAILY leuprolide (Lupron Depot) IM levothyroxine 100 mcg PO DAILY losartan 100 mg PO DAILY metformin mg PO nitroglycerin 0.4 mg sublingual pantoprazole 40 mg PO DAILY pravastatin mg PO prednisone 5 mg PO DAILY tizanidine 2 mg PO BEDTIME tramadol 50 mg PO BID PRN warfarin (Jantoven) 5 mg See Protocol PO DAILY Nursing Note having spinal injection today, md requested INR to be done and sent this am INR 1.2?? out of therapeutic range Medications and supplements reviewed Patient status: held warfarin per md orders for spinal injection Medications or supplements: no other changes Diet: appetite good, had cabbage 02/14/24Saturday Denies any signs and symptoms of bleeding or clotting or unusual bruising Bleeding, bruising, clotting discussed Nutritional guidance given: avoid greens after the procedure until INR greater than 2.0, to have foods after procedure to help raise the INR Dose: on hold currently, to possibly resume 5mg tonight per MD orders, then resume 5mg sat then resume 2.5mg mwf/ 5mg x 4 days F/U INR Date: 02/24/24 ?? Patient verbalizing understanding of instructions given. 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
== END 2024-02-18 09:23 | disposition home or self-care (01) ==
LOC: HO.ACS 09:08
PROVIDERS: PCP Internal Medicine; Visit Provider Internal Medicine
DX: Z79.01 Long term (current) use of anticoagulants (principal)

== ENCOUNTER → 2024-02-18 09:08 | Outpatient (BNVA) | payer MEDICARE, SELFPAY | PROVIDERS: PCP Internal Medicine; Visit Provider Internal Medicine | DX: I48.92 Unspecified atrial flutter (principal); Z79.01 Long term (current) use of anticoagulants; Z51.81 Encounter for therapeutic drug level monitoring | CPT/HCPCS: 85610; 99211 ==

== ENCOUNTER 2024-02-24 13:45 | Outpatient (AMB) | payer MEDICARE, SELFPAY ==
[2024-02-24 13:58] LABS: ~PT, ~INR - Anti Coag Clinic 1.7 (0.9-1.1)
--- NOTE | 2024-02-24 14:00 | MHC.OFFVISCO ---
Intake Intake Visit Reasons: Anticoagulation Allergies No Known Allergies Allergy (Verified 02/24/24 13:50) Medication List - Last Reconciled 02/24/24 by Donna Foss RN abiraterone 1,000 mg PO DAILY [CALCIUM PO] cholecalciferol (vitamin D3) (Vitamin D3) PO citalopram 20 mg PO DAILY cyclobenzaprine 5 mg PO BEDTIME PRN diltiazem HCl 300 mg PO DAILY furosemide 40 mg PO DAILY leuprolide (Lupron Depot) IM levothyroxine 100 mcg PO DAILY losartan 100 mg PO DAILY metformin mg PO nitroglycerin 0.4 mg sublingual pantoprazole 40 mg PO DAILY pravastatin mg PO prednisone 5 mg PO DAILY tizanidine 2 mg PO BEDTIME tramadol 50 mg PO BID PRN warfarin (Jantoven) 5 mg See Protocol PO DAILY Nursing Note Amb to [facility] feeling well, sts he had his epidural injection on 02/17 (5 day warfarin hold) resumed warfarin on 02/18 sts back is feeling so good Medications and supplements reviewed No other changes in health, diet, medications, or supplements Denies any unusual signs and symptoms of bruising, bleeding, sts injection site is good no bruising Denies any new Chest pain, SOB, or clotting INR:1.7 below therapeutic range Nutritional guidance given: no greens for 2 more days then balance greens and reds in diet Dose: increase dose today to 5mg then resume usual dosing; 2.5mg x 3 days and 5mg x 4 days F/U INR: 1 week Patient verbalizes understanding of instructions given with accurate read back/ teach back of dosing Coding Level of Care Code Est Patient Level 1 Diagnoses Current use of anticoagulant therapy Z79.01 Time Spent (min) 15 Assessment & Plan Assessment & Plan (1) Current use of anticoagulant therapy: 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
== END 2024-02-24 14:07 | disposition home or self-care (01) ==
LOC: HO.ACS 13:45
PROVIDERS: PCP Internal Medicine; Visit Provider Internal Medicine
DX: Z79.01 Long term (current) use of anticoagulants (principal)

== ENCOUNTER → 2024-02-24 13:45 | Outpatient (BNVA) | payer MEDICARE, SELFPAY | PROVIDERS: PCP Internal Medicine; Visit Provider Internal Medicine | DX: I48.92 Unspecified atrial flutter (principal); Z79.01 Long term (current) use of anticoagulants; Z51.81 Encounter for therapeutic drug level monitoring | CPT/HCPCS: 85610; 99211 ==

== ENCOUNTER 2024-03-02 13:35 | Outpatient (AMB) | payer MEDICARE, SELFPAY ==
--- NOTE | 2024-03-02 13:53 | MHC.OFFVISCO ---
Intake Intake Visit Reasons: Anticoagulation Allergies No Known Allergies Allergy (Verified 03/02/24 13:42) Medication List - Last Reconciled 03/02/24 by Donna Archer RN abiraterone 1,000 mg PO DAILY [CALCIUM PO] cholecalciferol (vitamin D3) (Vitamin D3) PO citalopram 20 mg PO DAILY cyclobenzaprine 5 mg PO BEDTIME PRN diltiazem HCl 300 mg PO DAILY furosemide 40 mg PO DAILY leuprolide (Lupron Depot) IM levothyroxine 100 mcg PO DAILY losartan 100 mg PO DAILY metformin mg PO nitroglycerin 0.4 mg sublingual pantoprazole 40 mg PO DAILY pravastatin mg PO prednisone 5 mg PO DAILY tizanidine 2 mg PO BEDTIME tramadol 50 mg PO BID PRN warfarin (Jantoven) 5 mg See Protocol PO DAILY Nursing Note INR 3.4? out of therapeutic range of 2-3 Medications and supplements reviewed: no changes Patient status: well, S/P Spinal injection on 02/17 with a 5 day warfarin hold. Pt states he feels much better. Medications or supplements: no changes Diet: has been having foods to raise the INR post procedure Denies any signs and symptoms of bleeding or clotting or unusual bruising Bleeding, bruising, clotting discussed Nutritional guidance given: pt to a serving of greens today Dose: same dose of 2.5mg X3 days and 5mg X 4 days F/U INR Date : 2 weeks?? Patient verbalizing understanding of instructions given. Coding Level of Care Code Est Patient Level 1 Diagnoses Current use of anticoagulant therapy Z79.01 Results AMB INR Fingerstick AMB INR Fingerstick 3.4 Last Edit by Donna Archer RN on 03/02/24 13:50 interface delay Assessment & Plan Assessment & Plan (1) Current use of anticoagulant therapy: Code(s): Z79.01 - senior care (current) use of anticoagulants Category: Medical
[2024-03-02 13:56] LABS: ~PT, ~INR - Anti Coag Clinic 3.4 (0.9-1.1)
== END 2024-03-02 13:58 | disposition home or self-care (01) ==
LOC: HO.ACS 13:35
PROVIDERS: PCP Internal Medicine; Visit Provider Internal Medicine
DX: Z79.01 Long term (current) use of anticoagulants (principal)

== ENCOUNTER → 2024-03-02 13:35 | Outpatient (BNVA) | payer MEDICARE, SELFPAY | PROVIDERS: PCP Internal Medicine; Visit Provider Internal Medicine | DX: I48.92 Unspecified atrial flutter (principal); Z51.81 Encounter for therapeutic drug level monitoring; Z79.01 Long term (current) use of anticoagulants | CPT/HCPCS: 85610; 99211 ==

== ENCOUNTER 2024-03-19 13:46 | Outpatient (AMB) | payer MEDICARE, SELFPAY ==
[2024-03-19 13:52] LABS: Prothrombin Time Whole Bld POC 36.6 sec (11.1-13.5)
--- NOTE | 2024-03-19 13:56 | MHC.OFFVISCO ---
Intake Intake Visit Reasons: Anticoagulation Allergies No Known Allergies Allergy (Verified 03/19/24 13:47) Medication List - Last Reconciled 03/19/24 by Gaby Gipson RN abiraterone 1,000 mg PO DAILY [CALCIUM PO] cholecalciferol (vitamin D3) (Vitamin D3) PO citalopram 20 mg PO DAILY cyclobenzaprine 5 mg PO BEDTIME PRN diltiazem HCl CD 300 mg PO DAILY furosemide 40 mg PO DAILY leuprolide (Lupron Depot) IM levothyroxine 100 mcg PO DAILY losartan 100 mg PO DAILY metformin mg PO nitroglycerin 0.4 mg sublingual pantoprazole 40 mg PO DAILY pravastatin mg PO prednisone 5 mg PO DAILY tizanidine 2 mg PO BEDTIME tramadol 50 mg PO BID PRN warfarin (Jantoven) 5 mg See Protocol PO DAILY Nursing Note NO CP,SOB,DIET/MED CHANGES,FALLS OR SX OF BLEEDING. CONTINUE PRESENT DOSE AND FOLLOW-UP IN 4 WEEKS. GOOD UNDERSTANDING OF DOSING INSTR. Coding Level of Care Code Est Patient Level 1 Diagnoses Current use of anticoagulant therapy Z79.01 Results AMB INR Fingerstick AMB INR Fingerstick 3.0 Last Edit by Gaby Gipson RN on 03/19/24 13:53 Assessment & Plan Assessment & Plan (1) Current use of anticoagulant therapy: Code(s): Z79.01 - assisted (current) use of anticoagulants Category: Medical
== END 2024-03-19 14:00 | disposition home or self-care (01) ==
LOC: HO.ACS 13:46
PROVIDERS: PCP Internal Medicine; Visit Provider Internal Medicine
DX: Z79.01 Long term (current) use of anticoagulants (principal)

== ENCOUNTER → 2024-03-19 13:46 | Outpatient (BNVA) | payer MEDICARE, SELFPAY | PROVIDERS: PCP Internal Medicine; Visit Provider Internal Medicine | DX: I48.92 Unspecified atrial flutter (principal) | CPT/HCPCS: 85610; 99211 ==

== ENCOUNTER 2024-04-16 14:05 | Outpatient (AMB) | payer MEDICARE, SELFPAY ==
[2024-04-16 14:12] LABS: Prothrombin Time Whole Bld POC 34.5 sec (11.1-13.5); ~PT, ~INR - Anti Coag Clinic 2.9 (0.9-1.1)
--- NOTE | 2024-04-16 14:14 | MHC.OFFVISCO ---
Intake Intake Visit Reasons: Anticoagulation Allergies No Known Allergies Allergy (Verified 04/16/24 14:06) Medication List - Last Reconciled 04/16/24 by Donna Foss RN abiraterone 1,000 mg PO DAILY [CALCIUM PO] cholecalciferol (vitamin D3) (Vitamin D3) PO citalopram 20 mg PO DAILY cyclobenzaprine 5 mg PO BEDTIME PRN diltiazem HCl CD 300 mg PO DAILY furosemide 40 mg PO DAILY leuprolide (Lupron Depot) IM levothyroxine 100 mcg PO DAILY losartan 100 mg PO DAILY metformin mg PO nitroglycerin 0.4 mg sublingual pantoprazole 40 mg PO DAILY pravastatin mg PO prednisone 5 mg PO DAILY tizanidine 2 mg PO BEDTIME tramadol 50 mg PO BID PRN warfarin (Jantoven) 5 mg See Protocol PO DAILY Nursing Note Amb to [facility] feeling well, although sts having recurrence of back pain, had epidural inj 02/17 and no pain for about a month and a half, now 05/11 sts tramadol helps has F/U in May with spinal Dr. Medications and supplements reviewed No other changes in health, diet, medications, or supplements, Noted multiple dime to nickel sized ecchymotic areas, bilat fore arms, sts always like that (daily warfarin and prednisone, today wearing short sleeved shirt) Denies any other unusual signs and symptoms of bleeding, bruising, or clotting. 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
== END 2024-04-16 15:15 | disposition home or self-care (01) ==
LOC: HO.ACS 14:05
PROVIDERS: PCP Internal Medicine; Visit Provider Internal Medicine
DX: Z79.01 Long term (current) use of anticoagulants (principal)

== ENCOUNTER → 2024-04-16 14:05 | Outpatient (BNVA) | payer MEDICARE, SELFPAY | PROVIDERS: PCP Internal Medicine; Visit Provider Internal Medicine | DX: I48.92 Unspecified atrial flutter (principal); Z51.81 Encounter for therapeutic drug level monitoring; Z79.01 Long term (current) use of anticoagulants | CPT/HCPCS: 85610; 99211 ==

== ENCOUNTER 2024-05-19 14:02 | Outpatient (AMB) | payer MEDICARE, SELFPAY ==
[2024-05-19 14:10] LABS: Prothrombin Time Whole Bld POC 37.3 sec (11.1-13.5); ~PT, ~INR - Anti Coag Clinic 3.1 (0.9-1.1)
--- NOTE | 2024-05-19 14:15 | MHC.OFFVISCO ---
Intake Intake Visit Reasons: Anticoagulation Allergies No Known Allergies Allergy (Verified 05/19/24 14:05) Medication List - Last Reconciled 05/19/24 by Donna Archer, RN abiraterone 1,000 mg PO DAILY [CALCIUM PO] cholecalciferol (vitamin D3) (Vitamin D3) PO citalopram 20 mg PO DAILY cyclobenzaprine 5 mg PO BEDTIME PRN diltiazem HCl CD 300 mg PO DAILY furosemide 40 mg PO DAILY leuprolide (Lupron Depot) IM levothyroxine 100 mcg PO DAILY losartan 100 mg PO DAILY metformin mg PO nitroglycerin 0.4 mg sublingual pantoprazole 40 mg PO DAILY pravastatin mg PO prednisone 5 mg PO DAILY tizanidine 2 mg PO BEDTIME tramadol 50 mg PO BID PRN warfarin (Jantoven) 5 mg See Protocol PO DAILY Nursing Note INR 3.1?out of therapeutic range of 2-3 Medications and supplements reviewed: no changes Patient status: feels well but is having increased back pain and taking more tylenol and tramadol. Informed pt to have more greens when taking more tylenol. Diet: usual diet for pt Denies any signs and symptoms of bleeding or clotting or unusual bruising Bleeding, bruising, clotting discussed Nutritional guidance given: pt to have a serving of greens today Dose: 5mg X 4 days and 2.5mg X 3 days F/U INR Date : 4 weeks?? Patient verbalizing understanding of instructions given. Coding Level of Care Code Est Patient Level 1 Diagnoses Current use of anticoagulant therapy Z79.01 Assessment & Plan Assessment & Plan (1) Current use of anticoagulant therapy: Code(s): Z79.01 - care home (current) use of anticoagulants Category: Medical
== END 2024-05-19 14:50 | disposition home or self-care (01) ==
LOC: HO.ACS 14:02
PROVIDERS: PCP Internal Medicine; Visit Provider Internal Medicine
DX: Z79.01 Long term (current) use of anticoagulants (principal)

== ENCOUNTER → 2024-05-19 14:02 | Outpatient (BNVA) | payer MEDICARE, SELFPAY | PROVIDERS: PCP Internal Medicine; Visit Provider Internal Medicine | DX: I48.92 Unspecified atrial flutter (principal); Z79.01 Long term (current) use of anticoagulants; Z51.81 Encounter for therapeutic drug level monitoring | CPT/HCPCS: 85610; 99211 ==

== ENCOUNTER 2024-06-15 08:03 | Outpatient (AMB) | payer MEDICARE, SELFPAY ==
[2024-06-15 08:08] LABS: Prothrombin Time Whole Bld POC 16.9 sec (11.1-13.5); ~PT, ~INR - Anti Coag Clinic 1.4 (0.9-1.1)
--- NOTE | 2024-06-15 08:16 | MHC.OFFVISCO ---
Intake Intake Visit Reasons: Anticoagulation Allergies No Known Allergies Allergy (Verified 06/15/24 08:04) Medication List - Last Reconciled 06/15/24 by Donna Archer, RN abiraterone 1,000 mg PO DAILY [CALCIUM PO] cholecalciferol (vitamin D3) (Vitamin D3) PO citalopram 20 mg PO DAILY cyclobenzaprine 5 mg PO BEDTIME PRN diltiazem HCl CD 300 mg PO DAILY furosemide 40 mg PO DAILY leuprolide (Lupron Depot) IM levothyroxine 100 mcg PO DAILY losartan 100 mg PO DAILY metformin mg PO nitroglycerin 0.4 mg sublingual pantoprazole 40 mg PO DAILY pravastatin mg PO prednisone 5 mg PO DAILY tizanidine 2 mg PO BEDTIME tramadol 50 mg PO BID PRN warfarin (Jantoven) 5 mg See Protocol PO DAILY Nursing Note INR 1.4?out of therapeutic range of 2-3 Pt has held his dose for past 5 days due to a scheduled epidural injection today. Medications and supplements reviewed Patient status: well Medications or supplements: no changes Diet: usual diet for pt Denies any signs and symptoms of bleeding or clotting or unusual bruising Bleeding, bruising, clotting discussed Nutritional guidance given: to avoid greens when restarts warfarin Dose: to restart either later today or tomorrow per provider giving the epidural. Dose increased to 7.5mg X 2 days and pt to return on the 3rd day, 06/18/24 F/U INR Date : 06/18/24?? Patient verbalizing understanding of instructions given. Coding Level of Care Code Est Patient Level 1 Diagnoses Current use of anticoagulant therapy Z79.01 Assessment & Plan Assessment & Plan (1) Current use of anticoagulant therapy: Code(s): Z79.01 - [facility] (current) use of anticoagulants Category: Medical
== END 2024-06-15 08:20 | disposition home or self-care (01) ==
LOC: HO.ACS 08:03
PROVIDERS: PCP Internal Medicine; Visit Provider Internal Medicine
DX: Z79.01 Long term (current) use of anticoagulants (principal)

== ENCOUNTER → 2024-06-15 08:03 | Outpatient (BNVA) | payer MEDICARE, SELFPAY | PROVIDERS: PCP Internal Medicine; Visit Provider Internal Medicine | DX: I48.92 Unspecified atrial flutter (principal); Z79.01 Long term (current) use of anticoagulants; Z51.81 Encounter for therapeutic drug level monitoring | CPT/HCPCS: 85610; 99211 ==

== ENCOUNTER 2024-06-17 08:54 | Outpatient (AMB) | payer MEDICARE, SELFPAY ==
--- NOTE | 2024-06-17 09:02 | MHC.OFFVISCO ---
Intake Intake Visit Reasons: Anticoagulation Allergies No Known Allergies Allergy (Verified 06/17/24 08:57) Medication List - Last Reconciled 06/17/24 by Donna Gruber RN abiraterone 1,000 mg PO DAILY [CALCIUM PO] cholecalciferol (vitamin D3) (Vitamin D3) PO citalopram 20 mg PO DAILY cyclobenzaprine 5 mg PO BEDTIME PRN diltiazem HCl CD 300 mg PO DAILY furosemide 40 mg PO DAILY leuprolide (Lupron Depot) IM levothyroxine 100 mcg PO DAILY losartan 100 mg PO DAILY metformin mg PO nitroglycerin 0.4 mg sublingual pantoprazole 40 mg PO DAILY pravastatin mg PO prednisone 5 mg PO DAILY tizanidine 2 mg PO BEDTIME tramadol 50 mg PO BID PRN warfarin (Jantoven) 5 mg See Protocol PO DAILY Nursing Note Telephone call to Dr adames at 0917, v/m for MA Critical INR of 1.2 reported with plan of care Patient instructed to go to ER with any unusual bruising, bleeding or clotting Spoke with to Shara at 1357 - she will convey message to provider to include dosing and f/u appt Shara states restart warfarin tomm INR 1.2-? out of therapeutic range of 2-3 Medications and supplements reviewed Patient status: pt scheduled for epidural injection today, 7 day hold of warfarin, no lovenox Medications or supplements: no changes Diet: same Denies any signs and symptoms of bleeding or clotting or unusual bruising Bleeding, bruising, clotting discussed Nutritional guidance given: no greens when restarting warfarin Dose: restart warfarin when ok with md- 7.5mg x1 then 5mg x 3 F/U INR Date : saturday06/22/24? Patient verbalizing understanding of instructions given. 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
[2024-06-17 09:03] LABS: Prothrombin Time Whole Bld POC 14.1 sec (11.1-13.5); ~PT, ~INR - Anti Coag Clinic 1.2 (0.9-1.1)
== END 2024-06-17 09:20 | disposition home or self-care (01) ==
LOC: HO.ACS 08:54
PROVIDERS: PCP Internal Medicine; Visit Provider Internal Medicine
DX: Z79.01 Long term (current) use of anticoagulants (principal)

== ENCOUNTER → 2024-06-17 08:54 | Outpatient (BNVA) | payer MEDICARE, SELFPAY | PROVIDERS: PCP Internal Medicine; Visit Provider Internal Medicine | DX: I48.92 Unspecified atrial flutter (principal); Z79.01 Long term (current) use of anticoagulants; Z51.81 Encounter for therapeutic drug level monitoring | CPT/HCPCS: 85610; 99211 ==

== ENCOUNTER 2024-06-22 15:42 | Outpatient (AMB) | payer MEDICARE, SELFPAY ==
[2024-06-22 15:49] LABS: Prothrombin Time Whole Bld POC 17.9 sec (11.1-13.5); ~PT, ~INR - Anti Coag Clinic 1.5 (0.9-1.1)
--- NOTE | 2024-06-22 15:55 | MHC.OFFVISCO ---
Intake Intake Visit Reasons: Anticoagulation Allergies No Known Allergies Allergy (Verified 06/22/24 15:43) Medication List - Last Reconciled 06/22/24 by Ivana Ritchie RN abiraterone 1,000 mg PO DAILY [CALCIUM PO] cholecalciferol (vitamin D3) (Vitamin D3) PO citalopram 20 mg PO DAILY cyclobenzaprine 5 mg PO BEDTIME PRN diltiazem HCl CD 300 mg PO DAILY furosemide 40 mg PO DAILY leuprolide (Lupron Depot) IM levothyroxine 100 mcg PO DAILY losartan 100 mg PO DAILY metformin mg PO nitroglycerin 0.4 mg sublingual pantoprazole 40 mg PO DAILY pravastatin mg PO prednisone 5 mg PO DAILY tizanidine 2 mg PO BEDTIME tramadol 50 mg PO BID PRN warfarin (Dectoven) 5 mg See Protocol PO DAILY Nursing Note INR?1.5 out of therapeutic range Medications and supplements reviewed Patient status: S/P SPINAL INJECTION AND WAS OFF WARFARIN X 7 DAYS, NO LOVENOX BRIDGE Medications or supplements: NO CHANGES Diet: GOOD Denies any signs and symptoms of bleeding or clotting or unusual bruising Bleeding, bruising, clotting discussed Nutritional guidance given: AVOID ALL GREENS NEXT 3 DAYS Dose: 7.5MG TODAY 5MG SATURDAY 2.5MG SAT AND RECHECK SATURDAY F/U INR Date : 06/25/24 ?? PT INSTRUCTED TO GO TO THE ER WITH ANY S/SX OF CLOTTING OR STROKE Patient verbalizing understanding of instructions given. 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
== END 2024-06-22 16:01 | disposition home or self-care (01) ==
LOC: HO.ACS 15:42
PROVIDERS: PCP Internal Medicine; Visit Provider Internal Medicine
DX: Z79.01 Long term (current) use of anticoagulants (principal)

== ENCOUNTER → 2024-06-22 15:42 | Outpatient (BNVA) | payer MEDICARE, SELFPAY | PROVIDERS: PCP Internal Medicine; Visit Provider Internal Medicine | DX: I48.92 Unspecified atrial flutter (principal); Z79.01 Long term (current) use of anticoagulants; Z51.81 Encounter for therapeutic drug level monitoring | CPT/HCPCS: 85610; 99211 ==

== ENCOUNTER 2024-06-25 10:31 | Outpatient (AMB) | payer MEDICARE, SELFPAY ==
[2024-06-25 10:37] LABS: Prothrombin Time Whole Bld POC 23.3 sec (11.1-13.5); ~PT, ~INR - Anti Coag Clinic 1.9 (0.9-1.1)
--- NOTE | 2024-06-25 10:43 | MHC.OFFVISCO ---
Intake Intake Visit Reasons: Anticoagulation Allergies No Known Allergies Allergy (Verified 06/25/24 10:31) Medication List - Last Reconciled 06/25/24 by Ivana Ritchie RN abiraterone 1,000 mg PO DAILY [CALCIUM PO] cholecalciferol (vitamin D3) (Vitamin D3) PO citalopram 20 mg PO DAILY cyclobenzaprine 5 mg PO BEDTIME PRN diltiazem HCl CD 300 mg PO DAILY furosemide 40 mg PO DAILY leuprolide (Lupron Depot) IM levothyroxine 100 mcg PO DAILY losartan 100 mg PO DAILY metformin mg PO nitroglycerin 0.4 mg sublingual pantoprazole 40 mg PO DAILY pravastatin mg PO prednisone 5 mg PO DAILY tizanidine 2 mg PO BEDTIME tramadol 50 mg PO BID PRN warfarin (ven) 5 mg See Protocol PO DAILY Nursing Note s/p epidural INR 1.9 out of therapeutic range up from 1.5 Saturday06/22/24 (3 days ago) Medications and supplements reviewed Patient status: states he can walk better Medications or supplements: no changes Diet: good - has been avoiding greens Denies any signs and symptoms of bleeding or clotting or unusual bruising Bleeding, bruising, clotting discussed Nutritional guidance given: avoid greens 2 more days Dose: resume usual dose starting with his 5mg today then 2.5mg mwf/ 5mg x 4 days F/U INR Date : 07/02/24 next - then if stable go 2-3 week for next INR?? Patient verbalizing understanding of instructions given. Coding Level of Care Code Est Patient Level 1 Diagnoses Current use of anticoagulant therapy Z79.01 Assessment & Plan Assessment & Plan (1) Current use of anticoagulant therapy: Code(s): Z79.01 - care home (current) use of anticoagulants Category: Medical
== END 2024-06-25 10:46 | disposition home or self-care (01) ==
LOC: HO.ACS 10:31
PROVIDERS: PCP Internal Medicine; Visit Provider Internal Medicine
DX: Z79.01 Long term (current) use of anticoagulants (principal)

== ENCOUNTER → 2024-06-25 10:31 | Outpatient (BNVA) | payer MEDICARE, SELFPAY | PROVIDERS: PCP Internal Medicine; Visit Provider Internal Medicine | DX: I48.92 Unspecified atrial flutter (principal); Z79.01 Long term (current) use of anticoagulants; Z51.81 Encounter for therapeutic drug level monitoring | CPT/HCPCS: 85610; 99211 ==

== ENCOUNTER 2024-07-02 14:53 | Outpatient (AMB) | payer MEDICARE, SELFPAY ==
--- NOTE | 2024-07-02 15:04 | MHC.OFFVISCO ---
Intake Intake Visit Reasons: Anticoagulation Allergies No Known Allergies Allergy (Verified 07/02/24 15:00) Medication List - Last Reconciled 07/02/24 by Donna Gruber RN abiraterone 1,000 mg PO DAILY [CALCIUM PO] cholecalciferol (vitamin D3) (Vitamin D3) PO citalopram 20 mg PO DAILY cyclobenzaprine 5 mg PO BEDTIME PRN diltiazem HCl CD 300 mg PO DAILY furosemide 40 mg PO DAILY leuprolide (Lupron Depot) IM levothyroxine 100 mcg PO DAILY losartan 100 mg PO DAILY metformin mg PO nitroglycerin 0.4 mg sublingual pantoprazole 40 mg PO DAILY pravastatin mg PO prednisone 5 mg PO DAILY tizanidine 2 mg PO BEDTIME tramadol 50 mg PO BID PRN warfarin (Jantoven) 5 mg See Protocol PO DAILY Nursing Note INR: 2.4- in therapeutic range of 2-3 Medications and supplements reviewed No changes in health, diet, medications, or supplements, Denies any signs and symptoms of bleeding or bruising or clotting. 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
[2024-07-02 15:05] LABS: Prothrombin Time Whole Bld POC 28.9 sec (11.1-13.5); ~PT, ~INR - Anti Coag Clinic 2.4 (0.9-1.1)
== END 2024-07-02 15:11 | disposition home or self-care (01) ==
LOC: HO.ACS 14:53
PROVIDERS: PCP Internal Medicine; Visit Provider Internal Medicine
DX: Z79.01 Long term (current) use of anticoagulants (principal)

== ENCOUNTER → 2024-07-02 14:53 | Outpatient (BNVA) | payer MEDICARE, SELFPAY | PROVIDERS: PCP Internal Medicine; Visit Provider Internal Medicine | DX: I48.92 Unspecified atrial flutter (principal); Z79.01 Long term (current) use of anticoagulants; Z51.81 Encounter for therapeutic drug level monitoring | CPT/HCPCS: 85610; 99211 ==

== ENCOUNTER 2024-07-30 13:59 | Outpatient (AMB) | payer MEDICARE, SELFPAY ==
--- NOTE | 2024-07-30 16:25 | MHC.OFFVISCO ---
Intake Intake Visit Reasons: Anticoagulation Allergies No Known Allergies Allergy (Verified 07/30/24 13:55) Medication List - Last Reconciled 07/30/24 by Donna Archer RN abiraterone 1,000 mg PO DAILY [CALCIUM PO] cholecalciferol (vitamin D3) (Vitamin D3) PO citalopram 20 mg PO DAILY cyclobenzaprine 5 mg PO BEDTIME PRN diltiazem HCl CD 300 mg PO DAILY furosemide 40 mg PO DAILY leuprolide (Lupron Depot) IM levothyroxine 100 mcg PO DAILY losartan 100 mg PO DAILY metformin mg PO nitroglycerin 0.4 mg sublingual pantoprazole 40 mg PO DAILY pravastatin mg PO prednisone 5 mg PO DAILY tizanidine 2 mg PO BEDTIME tramadol 50 mg PO BID PRN warfarin (Jantoven) 5 mg See Protocol PO DAILY Nursing Note INR: 2.1 in therapeutic range of 2-3 Medications and supplements reviewed No changes in health, diet, medications, or supplements, Denies any signs and symptoms of bleeding or bruising or clotting. 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
== END 2024-07-30 14:04 | disposition home or self-care (01) ==
LOC: HO.ACS 13:59
PROVIDERS: PCP Internal Medicine; Visit Provider Internal Medicine
DX: Z79.01 Long term (current) use of anticoagulants (principal)

== ENCOUNTER → 2024-07-30 13:59 | Outpatient (BNVA) | payer MEDICARE, SELFPAY | PROVIDERS: PCP Internal Medicine; Visit Provider Internal Medicine | DX: I48.92 Unspecified atrial flutter (principal); Z79.01 Long term (current) use of anticoagulants; Z51.81 Encounter for therapeutic drug level monitoring | CPT/HCPCS: 99211 ==

== ENCOUNTER 2024-08-27 13:42 | Outpatient (AMB) | payer MEDICARE, SELFPAY ==
--- NOTE | 2024-08-27 13:55 | MHC.OFFVISCO ---
Intake Intake Visit Reasons: Anticoagulation Allergies No Known Allergies Allergy (Verified 08/27/24 13:46) Medication List - Last Reconciled 08/27/24 by Donna Archer RN abiraterone 1,000 mg PO DAILY [CALCIUM PO] cholecalciferol (vitamin D3) (Vitamin D3) PO citalopram 20 mg PO DAILY cyclobenzaprine 5 mg PO BEDTIME PRN diltiazem HCl CD 300 mg PO DAILY furosemide 40 mg PO DAILY leuprolide (Lupron Depot) IM levothyroxine 100 mcg PO DAILY losartan 100 mg PO DAILY metformin mg PO nitroglycerin 0.4 mg sublingual pantoprazole 40 mg PO DAILY pravastatin mg PO prednisone 5 mg PO DAILY tizanidine 2 mg PO BEDTIME tramadol 50 mg PO BID PRN warfarin (Jantoven) 5 mg See Protocol PO DAILY Nursing Note INR: 2.5 in therapeutic range of 2-3 Medications and supplements reviewed No changes in health, diet, medications, or supplements, Denies any signs and symptoms of bleeding or bruising or clotting. 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
[2024-08-27 13:59] LABS: Prothrombin Time Whole Bld POC 29.6 sec (11.1-13.5); ~PT, ~INR - Anti Coag Clinic 2.5 (0.9-1.1)
== END 2024-08-27 13:58 | disposition home or self-care (01) ==
LOC: HO.ACS 13:42
PROVIDERS: PCP Internal Medicine; Visit Provider Internal Medicine
DX: Z79.01 Long term (current) use of anticoagulants (principal)

== ENCOUNTER → 2024-08-27 13:42 | Outpatient (BNVA) | payer MEDICARE, SELFPAY | PROVIDERS: PCP Internal Medicine; Visit Provider Internal Medicine | DX: I48.92 Unspecified atrial flutter (principal); Z79.01 Long term (current) use of anticoagulants; Z51.81 Encounter for therapeutic drug level monitoring | CPT/HCPCS: 85610; 99211 ==

== ENCOUNTER 2024-09-16 14:31 | Outpatient (AMB) | payer MEDICARE, SELFPAY ==
[2024-09-16 14:36] LABS: Prothrombin Time Whole Bld POC 22.2 sec (11.1-13.5); ~PT, ~INR - Anti Coag Clinic 1.8 (0.9-1.1)
--- NOTE | 2024-09-16 14:47 | MHC.OFFVISCO ---
Intake Intake Visit Reasons: Anticoagulation Allergies No Known Allergies Allergy (Verified 09/16/24 14:31) Medication List - Last Reconciled 09/16/24 by Gaby Gipson RN abiraterone 1,000 mg PO DAILY [CALCIUM PO] cholecalciferol (vitamin D3) (Vitamin D3) PO citalopram 20 mg PO DAILY cyclobenzaprine 5 mg PO BEDTIME PRN diltiazem HCl CD 300 mg PO DAILY furosemide 40 mg PO DAILY leuprolide (Lupron Depot) IM levothyroxine 100 mcg PO DAILY losartan 100 mg PO DAILY metformin mg PO nitroglycerin 0.4 mg sublingual pantoprazole 40 mg PO DAILY pravastatin mg PO prednisone 5 mg PO DAILY tizanidine 2 mg PO BEDTIME tramadol 50 mg PO BID PRN warfarin (Jantoven) 5 mg See Protocol PO DAILY Nursing Note PT.STARTED 10 DAY COURSE OF KEFLEX FOR (L) LEG CELLULITIS ON 09/10/24. PT.NOTES IMPROVEMENT OF AREA. NO CP,SOB OR SX OF BLEEDING. BOOST WARFARIN TO 5MGM TODAY THEHN RESUME PRESENT DOSING AND FOLLOW-UP ON 09/28. WILL INCREASE REDS A BIT AND HOLD GREENS 2 DAYS GOOD UNDERSTANDFING OF DOSING INSTR. 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
== END 2024-09-16 14:50 | disposition home or self-care (01) ==
LOC: HO.ACS 14:31
PROVIDERS: PCP Internal Medicine; Visit Provider Internal Medicine
DX: Z79.01 Long term (current) use of anticoagulants (principal)

== ENCOUNTER → 2024-09-16 14:31 | Outpatient (BNVA) | payer MEDICARE, SELFPAY | PROVIDERS: PCP Internal Medicine; Visit Provider Internal Medicine | DX: I48.92 Unspecified atrial flutter (principal); Z79.01 Long term (current) use of anticoagulants; Z51.81 Encounter for therapeutic drug level monitoring | CPT/HCPCS: 85610; 99211 ==

== ENCOUNTER 2024-09-28 13:00 | Outpatient (AMB) | payer MEDICARE, SELFPAY ==
--- NOTE | 2024-09-28 13:10 | MHC.OFFVISCO ---
Intake Intake Visit Reasons: Anticoagulation Allergies No Known Allergies Allergy (Verified 09/28/24 13:05) Medication List - Last Reconciled 09/28/24 by Donna Gruber RN abiraterone 1,000 mg PO DAILY [CALCIUM PO] cholecalciferol (vitamin D3) (Vitamin D3) PO citalopram 20 mg PO DAILY cyclobenzaprine 5 mg PO BEDTIME PRN diltiazem HCl CD 300 mg PO DAILY furosemide 40 mg PO DAILY leuprolide (Lupron Depot) IM levothyroxine 100 mcg PO DAILY losartan 100 mg PO DAILY metformin mg PO nitroglycerin 0.4 mg sublingual pantoprazole 40 mg PO DAILY pravastatin mg PO prednisone 5 mg PO DAILY tizanidine 2 mg PO BEDTIME tramadol 50 mg PO BID PRN warfarin (Jantoven) 5 mg See Protocol PO DAILY Nursing Note INR 1.9-?? out of therapeutic range of 2-3 denies missed dose Medications and supplements reviewed Patient status: cont with back pain, upcoming md appt/MRI Medications or supplements: no changes. finished cephalexin last saturday for cellulitis Diet: same Denies any signs and symptoms of bleeding or clotting or unusual bruising Bleeding, bruising, clotting discussed Nutritional guidance given: no greens for 2 days, eat a red today Dose: 5mg today then 2.5mg x 3, 5mg x 4 F/U INR Date : 10/05/24?? Patient verbalizing understanding of instructions given. 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
[2024-09-28 13:12] LABS: Prothrombin Time Whole Bld POC 23.1 sec (11.1-13.5); ~PT, ~INR - Anti Coag Clinic 1.9 (0.9-1.1)
== END 2024-09-28 13:19 | disposition home or self-care (01) ==
LOC: HO.ACS 13:00
PROVIDERS: PCP Internal Medicine; Visit Provider Internal Medicine
DX: Z79.01 Long term (current) use of anticoagulants (principal)

== ENCOUNTER → 2024-09-28 13:00 | Outpatient (BNVA) | payer MEDICARE, SELFPAY | PROVIDERS: PCP Internal Medicine; Visit Provider Internal Medicine | DX: I48.92 Unspecified atrial flutter (principal); Z79.01 Long term (current) use of anticoagulants; Z51.81 Encounter for therapeutic drug level monitoring | CPT/HCPCS: 85610; 99211 ==

== ENCOUNTER 2024-10-05 13:42 | Outpatient (AMB) | payer MEDICARE, SELFPAY ==
--- NOTE | 2024-10-05 14:01 | MHC.OFFVISCO ---
Intake Intake Visit Reasons: Anticoagulation Allergies No Known Allergies Allergy (Verified 10/05/24 13:53) Medication List - Last Reconciled 10/05/24 by Donna Gruber RN abiraterone 1,000 mg PO DAILY [CALCIUM PO] cholecalciferol (vitamin D3) (Vitamin D3) PO citalopram 20 mg PO DAILY cyclobenzaprine 5 mg PO BEDTIME PRN diltiazem HCl CD 300 mg PO DAILY furosemide 40 mg PO DAILY leuprolide (Lupron Depot) IM levothyroxine 100 mcg PO DAILY losartan 100 mg PO DAILY metformin mg PO nitroglycerin 0.4 mg sublingual pantoprazole 40 mg PO DAILY pravastatin mg PO prednisone 5 mg PO DAILY tizanidine 2 mg PO BEDTIME tramadol 50 mg PO BID PRN warfarin (Jantoven) 5 mg See Protocol PO DAILY Nursing Note INR 1.9-? out of therapeutic range of 2-3 Medications and supplements reviewed Patient status: pt denies missed dose or increased greens Medications or supplements: no changes Diet: same Denies any signs and symptoms of bleeding or clotting or unusual bruising Bleeding, bruising, clotting discussed Nutritional guidance given: avoid greens when restarting warfarin Dose: 5mg today, then cont reg dosing restart warfarin when ok with provider with boost dose 5mg x 2, then 2.5mg x 3, 5mg x 4 hold warfarin pre colonoscopy on 10/14/24- pt states instructed to hold warfarin for 5 days, t/c placed to [facility] Dr Montoya to ? lovenox. spoke to Denise at 1430 F/U INR Date : 10/19/24? Patient verbalizing understanding of instructions given. 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
[2024-10-05 14:02] LABS: Prothrombin Time Whole Bld POC 22.4 sec (11.1-13.5); ~PT, ~INR - Anti Coag Clinic 1.9 (0.9-1.1)
== END 2024-10-05 14:33 | disposition home or self-care (01) ==
LOC: HO.ACS 13:42
PROVIDERS: PCP Internal Medicine; Visit Provider Internal Medicine
DX: Z79.01 Long term (current) use of anticoagulants (principal)

== ENCOUNTER → 2024-10-05 13:42 | Outpatient (BNVA) | payer MEDICARE, SELFPAY | PROVIDERS: PCP Internal Medicine; Visit Provider Internal Medicine | DX: I48.92 Unspecified atrial flutter (principal); Z79.01 Long term (current) use of anticoagulants; Z51.81 Encounter for therapeutic drug level monitoring | CPT/HCPCS: 85610; 99211 ==

== ENCOUNTER 2024-10-26 14:46 | Outpatient (AMB) | payer MEDICARE, SELFPAY ==
[2024-10-26 15:02] LABS: Prothrombin Time Whole Bld POC 14.6 sec (11.1-13.5); ~PT, ~INR - Anti Coag Clinic 1.2 (0.9-1.1)
--- NOTE | 2024-10-26 15:19 | MHC.OFFVISCO ---
Intake Intake Visit Reasons: Anticoagulation Allergies No Known Allergies Allergy (Verified 10/26/24 14:50) Medication List - Last Reconciled 10/26/24 by Ivana Ritchie RN abiraterone 1,000 mg PO DAILY [CALCIUM PO] cholecalciferol (vitamin D3) (Vitamin D3) PO citalopram 20 mg PO DAILY cyclobenzaprine 5 mg PO BEDTIME PRN diltiazem HCl CD 300 mg PO DAILY furosemide 40 mg PO DAILY leuprolide (Lupron Depot) intramuscularly every 3 months; levothyroxine 100 mcg PO DAILY losartan 100 mg PO DAILY metformin mg PO nitroglycerin 0.4 mg sublingual pantoprazole 40 mg PO DAILY pravastatin mg PO prednisone 5 mg PO DAILY tizanidine 2 mg PO BEDTIME tramadol 50 mg PO BID PRN warfarin (Jantoven) 5 mg See Protocol PO DAILY Nursing Note INR 1.2? out of therapeutic range s/p colonoscopy 10/14 5 day hold and ploypectomy Medications and supplements reviewed Patient status: having ongoing back pain - to have MRI tomorrow- then planning for spinal injection 11/18/24 INR to be in therapeutic range before stopping warfarin again Medications or supplements: no other changes Diet: good Denies any signs and symptoms of bleeding or clotting or unusual bruising Bleeding, bruising, clotting discussed Nutritional guidance given: avoid greens x 3 days, will be having foods to help raise the INR Dose: 5mg sat 2.5mg fiday/ 5mg sat sun and recheck Saturday F/U INR Date : 11/02/24?? Patient verbalizing understanding of instructions given. 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
== END 2024-10-26 15:24 | disposition home or self-care (01) ==
LOC: HO.ACS 14:46
PROVIDERS: PCP Internal Medicine; Visit Provider Internal Medicine
DX: Z79.01 Long term (current) use of anticoagulants (principal)

== ENCOUNTER → 2024-10-26 14:46 | Outpatient (BNVA) | payer MEDICARE, SELFPAY | PROVIDERS: PCP Internal Medicine; Visit Provider Internal Medicine | DX: I48.92 Unspecified atrial flutter (principal); Z79.01 Long term (current) use of anticoagulants; Z51.81 Encounter for therapeutic drug level monitoring | CPT/HCPCS: 85610; 99211 ==

== ENCOUNTER 2024-11-02 14:04 | Outpatient (AMB) | payer MEDICARE, SELFPAY ==
[2024-11-02 14:10] LABS: Prothrombin Time Whole Bld POC 24.9 sec (11.1-13.5); ~PT, ~INR - Anti Coag Clinic 2.1 (0.9-1.1)
--- NOTE | 2024-11-02 14:20 | MHC.OFFVISCO ---
Intake Intake Visit Reasons: Anticoagulation Allergies No Known Allergies Allergy (Verified 11/02/24 14:05) Medication List - Last Reconciled 11/02/24 by Donna Archer RN abiraterone 1,000 mg PO DAILY [CALCIUM PO] cholecalciferol (vitamin D3) (Vitamin D3) PO citalopram 20 mg PO DAILY cyclobenzaprine 5 mg PO BEDTIME PRN diltiazem HCl CD 300 mg PO DAILY furosemide 40 mg PO DAILY leuprolide (Lupron Depot) intramuscularly every 3 months; levothyroxine 100 mcg PO DAILY losartan 100 mg PO DAILY metformin mg PO nitroglycerin 0.4 mg sublingual pantoprazole 40 mg PO DAILY pravastatin mg PO prednisone 5 mg PO DAILY tizanidine 2 mg PO BEDTIME tramadol 50 mg PO BID PRN warfarin (Jantoven) 5 mg See Protocol PO DAILY Nursing Note INR: 2.1 in therapeutic range of 2-3 Pt states he will be having a spinal injection on 11/18/25 with a 5-day hold of warfarin. LD will be on 11/12/24. Medications and supplements reviewed No changes in health, diet, medications, or supplements, Denies any signs and symptoms of bleeding or bruising or clotting. Bleeding, bruising, clotting discussed Nutritional guidance given to have a serving or 2 of greens in the days before the injection. Dose: increase today's dose to 5mg (2.5mg) then resume usual dose of 5mg X 4 days and 2.5mg X 3 days. 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
== END 2024-11-02 14:24 | disposition home or self-care (01) ==
LOC: HO.ACS 14:04
PROVIDERS: PCP Internal Medicine; Visit Provider Internal Medicine
DX: Z79.01 Long term (current) use of anticoagulants (principal)

== ENCOUNTER → 2024-11-02 14:04 | Outpatient (BNVA) | payer MEDICARE, SELFPAY | PROVIDERS: PCP Internal Medicine; Visit Provider Internal Medicine | DX: I48.92 Unspecified atrial flutter (principal); Z79.01 Long term (current) use of anticoagulants; Z51.81 Encounter for therapeutic drug level monitoring | CPT/HCPCS: 85610; 99211 ==

== ENCOUNTER 2024-11-30 13:44 | Outpatient (AMB) | payer MEDICARE, SELFPAY ==
--- OUTSIDE RECORDS SUMMARY | 2024-11-30 13:47 | XMS_ITS | Patient Health Record ---
Author Organization [facility] Address [address] [place] [address] Care Team Providers Care Hospice Entrance Attendant Name Role Phone MARIBELL BROOKS Primary Care Provider [phone] LUIS CARLOS CALVIN Unavailable [phone] TIERRA CHANG Unavailable [phone] Samanta Thomas Unavailable [phone] MARGARETDELMAR SERNA Unavailable [phone] ALLERGIES No Known Allergies RESULTS Component Value Reference Range Notes CBC With Differential/Platel [id number] Reviewed date:08/18/2024 04:34:01 PM Interpretation: Performing Lab:[facility], [address] [place] [address], [place], Phone - [phone], Director - Shannan Notes/Report: WBC 8.8 3.4-10.8 x10E3/uL RBC 4.11 4.14-5.80 x10E6/uL Hemoglobin 13.3 13.0-17.7 g/dL Hematocrit 40.5 37.5-51.0 % MCV 99 79-97 fL MCH 32.4 26.6-33.0 pg MCHC 32.8 31.5-35.7 g/dL RDW 13.4 11.6-15.4 % Platelets 264 150-450 x10E3/uL Neutrophils 82 Not Estab. % Lymphs 8 Not Estab. % Monocytes 7 Not Estab. % Eos 1 Not Estab. % Basos 1 Not Estab. % Immature Cells Neutrophils (Absolute) 7.3 1.4-7.0 x10E3/uL Lymphs (Absolute) 0.7 0.7-3.1 x10E3/uL Monocytes(Absolute) 0.7 0.1-0.9 x10E3/uL Eos (Absolute) 0.1 0.0-0.4 x10E3/uL Baso (Absolute) 0.1 0.0-0.2 x10E3/uL Immature Granulocytes 1 Not Estab. % Immature Grans (Abs) 0.1 0.0-0.1 x10E3/uL NRBC Hematology Comments: Prothrombin Time (PT)-510810 Reviewed date:08/18/2024 04:33:57 PM Interpretation: Performing Lab:[facility], [address] [place] [address], Phone - [phone], [facility] Notes/Report: INR 1.8 0.9-1.1 Prothrombin Time 18.5 9.2-11.4 SEC CBC With Differential/Platel et-[id number] Reviewed date:2024 11:21:55 AM Interpretation: Performing Lab:[facility], [address] [place] [address], Phone - [phone], Director - Shannan Notes/Report: WBC 9.9 3.4-10.8 x10E3/uL RBC 4.33 4.14-5.80 x10E6/uL Hemoglobin 13.4 13.0-17.7 g/dL Hematocrit 41.5 37.5-51.0 % MCV 96 79-97 fL MCH 30.9 26.6-33.0 pg MCHC 32.3 31.5-35.7 g/dL RDW 13.4 11.6-15.4 % Platelets 285 150-450 x10E3/uL Neutrophils 80 Not Estab. % Lymphs 11 Not Estab. % Monocytes 7 Not Estab. % Eos 1 Not Estab. % Basos 1 Not Estab. % Immature Cells Neutrophils (Absolute) 7.9 1.4-7.0 x10E3/uL Lymphs (Absolute) 1.1 0.7-3.1 x10E3/uL Monocytes(Absolute) 0.7 0.1-0.9 x10E3/uL Eos (Absolute) 0.1 0.0-0.4 x10E3/uL Baso (Absolute) 0.1 0.0-0.2 x10E3/uL Immature Granulocytes 0 Not Estab. % Immature Grans (Abs) 0.0 0.0-0.1 x10E3/uL NRBC Hematology Comments: Prothrombin Time (PT)-510810 Reviewed date:09/10/2024 04:18:33 PM Interpretation: Performing Lab:[facility], [address] [facility], [place], Phone - [phone], Director - Kelvin Notes/Report: INR 1.8 0.9-1.1 Prothrombin Time 18.0 9.2-11.4 SEC TISSUE EXAM Reviewed date:10/19/2024 10:58:13 AM Interpretation: Performing Lab: Notes/Report: Final Diagnosis A. Large Intestine, Transverse Colon, colon polyps x3: - Tubular adenoma. Gross Description A. Large Intestine, Transverse Colon, colon polyps x3: Labeled with the patient's name and information. Received in formalin, are two soft to rubbery, ross-pink, polypoid tissues, approximately measuring 0.4 cm and 0.9 cm, in greatest diameters, which are differentially inked at their bases, wrapped in paper and submitted in toto in one cassette, two pieces, multiple levels. Please note: No additional tissue found in the specimen jar. dvb/SL Disclaimer Unless otherwise specified, all tissue is 10% NB formalin fixed and paraffin embedded. REASON FOR REFERRAL Reason Colonoscopy Diagnosis 1 Colon cancer screeni savannah (Z12.11) Referral Organization [facility] Referring Provider First Name MARIBELL Referring Provider Last Name BHARGAVI Referring Provider Speciality Internal M edicine Referred Provider Specialty Gastroentero logy General Notes Dr. Mick Motta, [address] [facility], [place], [place], P [phone], F [phone] Clinical Notes Shara Barry 2023 09:27:35 AM >referral info faxed to Dr. Motta's office, [facility] for pt mailing copy to his home for record and self [place]ito GONZALEZHarry curriejah 07/30/2024 11:01:33 AM > The patient is scheduled for an appointment on 09/01/2024 at 2 pm. Pt is aware Referral Priority Routine MEDICATIONS Medication SIG (Take, Route, Frequency, Duration) Notes Start Date End Date Status Levothyroxine Sodium 100 MCG TAKE 1 TABLET DAILY IN THE MORNING ON AN EMPTY STOMACH Active Calcium 600 MG 1 tablet with meals Orally Twice a day Active Nitroglycerin 0.[address] 1 TABLET BY MOUTH UNDER TONGUE for 30 days Active Tylenol Extra Strength 500 MG 2 tabs Orally daily Active traMADol HCl 50 MG 1 tablet as needed dose increase on 04/01/24 Orally twice a day for 30 days 04/14/2024 Active dilTIAZem HCl ER 300 MG 1 capsule Orally Once a day Active Warfarin Sodium 5 MG 1 tablet Orally Onc e a day for 90 days Sat, Sun, Tues, Thurs at 5mg Active Losartan Potassium 100 MG 1 tablet Orally Once a day for 90 days Active predniSONE 5 MG 1 tablet Orally Once a day Active Pravastatin Sodium 40 MG 1 tablet Orally Once a day for 90 days Active Vitamin D 50 MCG (1999) 1 tablet Orally Once a day Active Abiraterone Acetate 500 MG one tablet Oral once daily for 30 days Active tiZANidine HCl 2 MG 1 tablet at bedtime Orally once daily for 30 days as needed Active Pantoprazole Sodium 40 MG 1 tablet Orally Once a day for 90 days Active Citalopram Hydrobromide 20 MG 1 tablet Orally Once a day for 90 days Active Furosemide 40 MG 1 tablet Orally Once a day for 90 days Active metFORMIN HCl 500 mg TAKE 1 TABLET DAILY WITH A MEAL Active IMMUNIZATIONS Vaccine Route Administration Date Status Comme nts Tdap IM Intramuscular 03/05/2018 Administered SOCIAL HISTORY Tobacco Use: Social History Observation Description Date Details (start date - stop date) Former Smoker NA - NA Sex Assigned At : Social History Observation Description Sex Assigned At Unknown Tobacco Use/Smoking Question Answer Notes Are you a former smoker PROBLEMS Problem Type ICD Code Onset Dates Problem Status W/U Status Risk SNOMED Code Notes Problem Type 2 diabetes mellitus with unspecified complications (E11.8) Active confirmed 13041033 Problem Morbid (severe) obesity due to excess calories (E66.01) Active confirmed Morbid obesity (disorder) (878430487) Problem Hyperlipidemia, unspecified (E78.5) Active confirmed Hyperlipidemia (64564906) Problem Other chronic pain (G89.29) Active confirmed 30511271 Problem Essential (primary) hypertension (I10) Active confirmed 22907985 Problem Paroxysmal atrial fibrillation (I48.0) Active confirmed Paroxysmal atri al fibrillation (839038992) Problem Acute nasopharyngitis [common cold] (J00) Active confirmed Common cold (64234950) Problem Chronic obstructive pulmonary disease with (acute) exacerbation (J44.1) Active confirmed Acute exacerbation of chronic obstructive airways disease (643156980) Problem Chronic obstructive pulmonary disease, unspecified (J44.9) Active confirmed Chronic obstructive lung disease (13755913) Problem Encounter for general adult medical examination without abnormal findings (Z00.00) Active confirmed 298750379 Problem Morbid obesity (E66.01) Active confirmed Morbid obesity (475463849) Problem 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, unspecified whether termite exterminator helper insulin use (E11.8) Active confirmed Disorder due to type 2 diabetes mellitus (536117931) Problem Hyperlipidemia, unspecified hyperlipidemia type (E78.5) Active confirmed 99676185 Problem Acquired hypothyroidism (E03.9) Active confirmed 354526218 Problem Prostate cancer (C61) Active confirmed 721123818 Problem Elevated PSA (R97.20) Active confirmed 914329921 Problem Blood in stool (K92.1) Active confirmed 932166729 Problem ENE (obstructive sleep apnea) (G47.33) Active confirmed 74099146 Problem BMI 40.0-44.9, adult (Z68.41) Active confirmed 706704892 Problem Chronic anticoagulation (Z79.01) Active confirmed 485500423 Problem Type 2 diabetes mellitus without complication, without long-term current use of insulin (E11.9) Active confirmed 602327121 Problem Body mass index [BMI] 45.0-49.9, adult (Z68.42) Active confirmed 941523497 Problem Cough (R05.9) Active confirmed Cough (4 7444296) Problem Sciatic radiculitis (M51.17) Active confirmed 36222912 Problem Lumbar pain (M54.50) Active confirmed 479011792 VITAL SIGNS Heart Rate 100 /min 11/05/2024 Oximetry 97 % 11/05/2024 Blood pressure diastolic 86 mm Hg 11/05/2024 Height 69 in 11/05/2024 Blood pressure systolic 132 mm Hg 11/05/2024 Weight 272 lbs 11/05/2024 BMI 40.16 kg/m2 11/05/2024 Encounters Encounter Location Date Provider Diagnosis [facility] [address] [place] [address] 02/18/2024 MARIBELL BROOKS [facility] [address] [place] [address] 12/25/2023 MARIBELL BROOKS Preoperative examination Z01.818 ; Hyperlipidemia, unspecified E78.5 ; Paroxysmal atrial fibrillation I48.0 ; Chronic obstructive pulmonary disease, unspecified J44.9 and 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, unspecified whether jail insulin use E11.[address] [address] 01/03/2024 TIERRA CHANG Acute cough R05.1 ; Sinus congestion R09.81 ; Hyperlipidemia, unspecified E78.5 ; Paroxysmal atrial fibrillation I48.0 and Chronic obstructive pulmonary disease, unspecified J44.[address] [address] 01/13/2024 MARIBELL BROOKS Close exposure to COVID-19 virus Z20.822 ; Paroxysmal atrial fibrillation I48.0 ; Chronic obstructive pulmonary disease, unspecified J44.9 and 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, unspecified whether jail insulin use E11.8 [facility] [address] [address] 03/05/2024 MARIBELL BROOKS 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, unspecified whether jail insulin use E11.8 [facility] [address] 06/16/2024 MARIBELL BROOKS Type 2 diabetes mellitus with unspecified complications E11.8 ; Essential (primary) hypertension I10 ; Hyperlipidemia, unspecified hyperlipidemia type E78.5 and Acquired hypothyroidism E03.[address] [address] 07/22/2024 DELMAR MARGARET Blood in stool K92.1 ; Paroxysmal atrial fibrillation I48.0 ; Hyperlipidemia, unspecified E78.5 ; 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, unspecified whether jail insulin use E11.8 ; Acquired hypothyroidism E03.9 and Type 2 diabetes mellitus without complication, without long-term current use of insulin E11.9 [address] [facility] [address] [place] [address] 08/19/2024 DELMAR MARGARET Paroxysmal atrial fibrillation I48.0 ; Blood in stool K92.1 ; Hyperlipidemia, unspecified E78.5 ; 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, unspecified whether jail insulin use E11.8 ; Acquired hypothyroidism E03.9 ; Type 2 diabetes mellitus without complication, without long-term current use of insulin E11.9 and Prostate cancer C61 [facility] [address] [facility] [address] [place] [address] 09/17/2024 TALAL BROOKS Acute cellulitis L03 .90 ; Hyperlipidemia, unspecified E78.5 ; Paroxysmal atrial fibrillation I48.0 ; Chronic obstructive pulmonary disease, unspecified J44.9 and 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, unspecified whether jail insulin use E11.8 [address] [facility] [address] [place], [place] 10/01/2024 Samanta Svrcek Acute cellulitis L03 .90 ; Other chronic pain G89.29 ; Low back pain, unspecified M54.50 ; Chronic obstructive pulmonary disease, unspecified J44.9 and 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, unspecified whether termite exterminator helper insulin use E11.8 [address] [facility] [address] [place], [place] 11/05/2024 Samanta Svrcek Low back pain, unspecified M54.50 ; Spinal stenosis of lumbar region with neurogenic claudication M48.062 ; Other chronic pain G89.29 ; Acute cellulitis L03.90 ; Paroxysmal atrial fibrillation I48.0 and Chronic anticoagulation Z79.[address] [facility] [address] [place] [address] 01/02/[address] [facility] [address] [place] [address] 01/03/[address] [facility] [address] [place] [address] 01/13/[address] [facility] [address] [place] [address] 01/13/2024 TALAL BROOKS [address] [address] 02/18/2024 TALAL BROOKS [address] [address] 04/14/[address] [facility] [address] [place] [address] 06/17/[address] [facility] [address] [place] [address] 06/24/[address] [facility] [address] [place] [address] 06/30/[address] [facility] [address] [facility] [address] [place] [address] 07/22/2024 DELMAR ROBLES [address] [facility] [address] [place] [address] 09/17/[address] [facility] [address] [place] [address] 10/26/[address] [facility] [address] [facility] [address] [facility] [address] [place] [address] 11/13/2024 TALAL BROOKS [address] [facility] [address] [place] [address] 12/03/2023 TALAL BROOKS [address] [facility] [address] [place] [address] 01/02/2024 TALAL BROOKS [address] [facility] [address] [place] [address] 01/02/2024 TALAL BROOKS [address] [facility] [address] [place] [address] 01/11/2024 TALAL BROOKS [address] [facility] [address] [place] [address] 02/17/2024 TALAL BROOKS [address] [facility] [address] [place] [address] 02/29/2024 TALAL BROOKS [address] [facility] [address] [place] [address] 03/30/2024 TALAL BROOKS [address] [facility] [address] [place] [address] 03/31/2024 TALAL BROOKS [address] [facility] [address] [place] [address] 04/11/2024 TALAL BROOKS [address] [facility] [address] [place] [address] 05/14/2024 TALAL BROOKS [address] [facility] [address] [place] [address] 07/20/2024 TALAL BROOKS [address] [facility] [address] [place] [address] 08/18/2024 TALAL BROOKS [address] [facility] [address] [place] [address] 09/29/2024 [facility] ALDRIDGE [address] [facility] [address] [place] [address] 11/06/2024 Samanta Thomas ASSESSMENTS Encounter Date Diagnosis Assessment Notes Treatment Notes Treatment Clinical Notes Section Notes 12/25/2023 Hyperlipidemia, unspecified (ICD-10 - E78.5) Patient is acceptable risk for cataract surgery continue current treatment for atrial fibrillation continue anticoagulation management of diabetes COPD and focus on lifestyle changes for medical weight loss 12/25/2023 Preoperative examination (ICD-10 - Z01.818) Patient is acceptable risk for cataract surgery continue current treatment for atrial fibrillation continue anticoagulation management of diabetes COPD and focus on lifestyle changes for medical weight loss 01/03/2024 Acute cough (ICD-10 - R05.1) Jose Manuel is a 68-year-old male who presents the office for a urgent care visit. Patient states that his symptoms started on Saturday including headache, cough, wheezing, shortness of breath. Went to urgent care on Saturday for which he was prescribed prednisone, has been taking with compliance, no side effects, and states that he is not noticing any improvement. Does have cataract surgery yesterday, but was postponed secondary to being sick. Scheduled for the right eye on the , and the left eye on the and is requesting a potential antibiotic. Swab for COVID, flu, RSV, still pending. If negative, will prescribe a Z-Shane. Patient has tolerated well in the past with resolution of similar symptoms in the past. Educated on proper use, side effects. Educated on conservative treatment such as tea, honey, rest, hydration. Discussed particular treatments for symptomatic [id number] as well. All quetsions answered to patients satisfaction. Patient verbalized understanding of diagnosis and treatments explained. To call sooner prior to next visit it any questions/concerns arise. Case discussed with collaborating physician Alvarez Brooks who reviewed the assessment and plan. Chart, medications, labs, vital signs reviewed. Dictation was accomplished with the use of pMDsoft voice recognition software, prone to medical misidentifications and grammatical errors. This is unintentional and the practitioner does try to identify and correct these, but some could still be present. Please do not hesitate to contact practitioner for clarification. 01/03/2024 Sinus congestion (ICD-10 - R09.81) Jose Manuel is a 68-year-old male who presents the office for a urgent care visit. Patient states that his symptoms started on Saturday including headache, cough, wheezing, shortness of breath. Went to urgent care on Saturday for which he was prescribed prednisone, has been taking with compliance, no side effects, and states that he is not noticing any improvement. Does have cataract surgery yesterday, but was postponed secondary to being sick. Scheduled for the right eye on the , and the left eye on the and is requesting a potential antibiotic. Swab for COVID, flu, RSV, still pending. If negative, will prescribe a Z-Shane. Patient has tolerated well in the past with resolution of similar symptoms in the past. Educated on proper use, side effects. Educated on conservative treatment such as tea, honey, rest, hydration. Discussed particular treatments for symptomatic [id number] as well. All quetsions answered to patients satisfaction. Patient verbalized understanding of diagnosis and treatments explained. To call sooner prior to next visit it any questions/concerns arise. Case discussed with collaborating physician Alvarez Brooks who reviewed the assessment and plan. Chart, medications, labs, vital signs reviewed. Dictation was accomplished with the use of pMDsoft voice recognition software, prone to medical misidentifications and grammatical errors. This is unintentional and the practitioner does try to identify and correct these, but some could still be present. Please do not hesitate to contact practitioner for clarification. 01/13/2024 Paroxysmal atrial fibrillation (ICD-10 - I48.0) Patient has bee n history of multiple medical problems including paroxysmal atrial fibrillation COPD type 2 diabetes mellitus with symptoms of upper respiratory tract infection s/p swab which was negative. Patient will be started on antibiotics for bronchitis and call us if not better 01/13/2024 Close exposure to COVID-19 virus (ICD-10 - Z20.822) Patient has b een history of multiple medical problems including paroxysmal atrial fibrillation COPD type 2 diabetes mellitus with symptoms of upper respiratory tract infection s/p swab which was negative. Patient will be started on antibiotics for bronchitis and call us if not better 03/05/2024 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, unspecified whether termite exterminator helper insulin use (ICD-10 - E11.8) 68-year-old mal e with a past medical history of COPD, diabetes mellitus type II, obesity, ENE, atrial fibrillation, hyperlipidemia, and prostate cancer who presents today for a follow-up for his A1C. The patient states that he takes prednisone 5 mg PO daily. His in office A1C was 6.4% today. The patient was educated to eliminate white bread, rice, and sugar. The patient will continue taking metformin 500 mg PO daily. We will continue to monitor the patient's A1C. The patient will follow-up in 3 months for an in office hemoglobin A1C. 06/16/2024 Type 2 diabetes mellitus with unspecified complications (ICD-10 - E11.8) Patient has diagnosis of diabetes mellitus. Discussed the role of new diabetic medications including glucagon like peptide, their impact on insulin resistance, side effects that are not limited to pancreatitis and contraindication certain thyroid tumors, nausea and vomiting. Discussed the role of Januvia or Farxiga, which can cause glucose leakage in the urine, prevent progression of chronic kidney disease, prevention of congestive heart failure and possible long-term goal in controlling and keeping and maintaining hemoglobin A1c levels. Possible side effects include but not limited to urinary tract infections yeast infections, and rare side effect of gangrene. This was mostly seen with Invokana but can be seen in other class of medicines like Jardiance and Farxiga. Discussed role of metformin oral hypoglycemics and use of long-term insulin short and long-acting. Discussed long-term side effects benefits and then subsequent discussion on role of lifestyle which is most powerful in controlling blood sugar levels with elimination of processed food intake of healthy fruits and vegetables, regular diet and exercise movement when appropriate with goal of greater than 6000 steps a day unless limited by severe arthritis, and other exercise more modalities including swimming and spinning as appropriate. Educated on role of insulin resistance fasting insulin levels to detect prediabetes, blood sugar levels and hemoglobin A1c levels. Blood pressure should be kept at 120/80. Discussed role of blood pressure medicines like lisinopril or losartan. Discussed microalbuminuria and albuminuria. Discussed the importance of annual foot exam and retinal eye exams. Discussed LDL level should be below 70 and HDL level should be above 50 if possible and decrease triglyceride levels to below 100 when appropriate. Discussed importance of regular follow-up with primary care physician, men's basketball coach and 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 Patient is doing well hemoglobin A1c 6.1 taking medications as prescribed. Continue medical weight loss continue to hold Coumadin for injection in the spine tomorrow and then follow-up in 3 months 07/22/2024 Paroxysmal atrial fibrillation (ICD-10 - I48.0) Jose Manuel is a 68-year-old male with a PMH of HLD, HTN, A-fib on Coumadin, hypothyroidism, gout, type 2 diabetes that presents for evaluation of blood in stool x2. Patient reports small amount of bright red blood coating stool after 2 separate bowel movements, states he has never had this occur before. Patient brought in picture for my review. In the photo, there is a small amount of bright red blood streaking and otherwise normal appearing bowel movement. Patient otherwise feeling well. Exam within normal limits. Laboratory evaluation including CBC, PT/INR, and stool guaiac test x3 ordered. Patient is educated on how to apply stool sample to guaiac card. Plan to communicate with Dr. Motta in an attempt to move colonoscopy up for sooner than December. ED protocol reviewed. The patient is educated to seek immediate medical attention should he develop any chest pain, SOB, hemoptysis, dizziness, syncope, large amounts of blood in the stool, or black tarry stool. All questions answered to the patient's satisfaction. Patient demonstrates understanding of diagnosis and treatments discussed. Follow-up in 1 month, sooner should any questions/concerns arise. Case discussed with collaborating physician Jose Brooks who has reviewed the assessment/plan. Chart, medications, labs, and vital signs reviewed. Dictation completed with the use of pMDsoft voice recognition software, prone to medical misidentifications and grammatical errors. All errors are unintentional. Although the practitioner does try to identify and correct errors, some may be present. Please do not hesitate to contact the practitioner for clarification. 07/22/2024 Blood in stool (ICD-10 - K92.1) Jose Manuel is a 68-year-old male with a PMH of HLD, HTN, A-fib on Coumadin, hypothyroidism, gout, type 2 diabetes that presents for evaluation of blood in stool x2. Patient reports small amount of bright red blood coating stool after 2 separate bowel movements, states he has never had this occur before. Patient brought in picture for my review. In the photo, there is a small amount of bright red blood streaking and otherwise normal appearing bowel movement. Patient otherwise feeling well. Exam within normal limits. Laboratory evaluation including CBC, PT/INR, and stool guaiac test x3 ordered. Patient is educated on how to apply stool sample to guaiac card. Plan to communicate with Dr. Motta in an attempt to move colonoscopy up for sooner than December. ED protocol reviewed. The patient is educated to seek immediate medical attention should he develop any chest pain, SOB, hemoptysis, dizziness, syncope, large amounts of blood in the stool, or black tarry stool. All questions answered to the patient's satisfaction. Patient demonstrates understanding of diagnosis and treatments discussed. Follow-up in 1 month, sooner should any questions/concerns arise. Case discussed with collaborating physician Jose Brooks who has reviewed the assessment/plan. Chart, medications, labs, and vital signs reviewed. Dictation completed with the use of pMDsoft voice recognition software, prone to medical misidentifications and grammatical errors. All errors are unintentional. Although the practitioner does try to identify and correct errors, some may be present. Please do not hesitate to contact the practitioner for clarification. 08/19/2024 Paroxysmal atrial fibrillation (ICD-10 - I48.0) Jose Manuel is a pleasant 68-year-old male with a PMH of HLD, HTN, A-fib on warfarin, hypothyroidism, gout, T2DM, prostate cancer that presents for follow-up appointment. #Blood in stool: Patient previously presented for 2 episodes of blood coating his stool. Laboratory evaluation including CBC and PT/INR ordered for continued evaluation at that time. Labs drawn 08/13/2024 reveal hemoglobin 13.3, hematocrit 40.5, RBC 4.11 - consistent with patient's baseline when compared to labs drawn in May and July 2024. INR mildly subtherapeutic at 1.8. Last INR available for my review was therapeutic at 2.4, this lab was drawn 07/15/2024. Patient due for repeat labs 08/27. Patient denies any repeat Episodes of blood in the stool. Feeling well, he is encouraged to follow-up with auxiliary powerplant operator, Dr. 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 Reviewed return to office/ED protocol. Patient scheduled to follow-up in office 09/17/2024 at which time his CBC and PT/INR will be repeated. #A-fib: Heart rate normal at 93. Patient follows with Dr. Montoya. Currently taking diltiazem 300 mg, and warfarin 5 mg with compliance. Patient is encouraged to continue current regimen and follow-up with cardiology as scheduled. #HTN: BP stable in office at 120/66. Continue regimen of losartan 100 mg once daily and furosemide 40 mg once daily. #HLD: Continue pravastatin 40 mg once daily. #T2DM: Continue metformin 500 mg once daily. #Prostate cancer: Patient with history of prostate cancer, has undergone radiation treatment and is currently following with [facility], due to see them again 10/21/2024. Currently taking Zytiga with prednisone. Plan to request records from [facility] for continued evaluation. #Hypothyroidism: Clinically the patient is euthyroid, continue levothyroxine 100 mcg daily. All questions answered to the patient's satisfaction. Patient demonstrates understanding of diagnosis and treatments discussed. Follow-up at next scheduled appointment in September for follow-up with lab review, sooner should any questions/concerns arise. Case discussed with collaborating physician Jose Brooks who has reviewed the assessment/plan. Chart, medications, labs, and vital signs reviewed. Dictation completed with the use of pMDsoft voice recognition software, prone to medical misidentifications and grammatical errors. All errors are unintentional. Although the practitioner does try to identify and correct errors, some may be present. Please do not hesitate to contact the practitioner for clarification. 09/17/2024 Hyperlipidemia, unspecified (ICD-10 - E78.5) Patient treated for acute cellulitis to complete K-Flex and wound care done. Hyperlipidemia and back pain stable and patient will continue with current medications for COPD patient is on inhalers.. He has lost 30 pounds with diet and exercise he also is on Coumadin and follows up with Coumadin clinic at [place].. Possible interaction with Coumadin and Keflex and patient has been educated and last INR was 1.8 and has follow-up with Coumadin clinic. Patient will see Samanta in 2 weeks for wound check 09/17/2024 Acute cellulitis (ICD-10 - L03.90) Patient treated for acute cellulitis to complete K-Flex and wound care done. Hyperlipidemia and back pain stable and patient will continue with current medications for COPD patient is on inhalers.. He has lost 30 pounds with diet and exercise he also is on Coumadin and follows up with Coumadin clinic at [place].. Possible interaction with Coumadin and Keflex and patient has been educated and last INR was 1.8 and has follow-up with Coumadin clinic. Patient will see Samanta in 2 weeks for wound check 10/01/2024 Other chronic pain (ICD-10 - G89.29) #Cellulitis. Left lower extremity anterior lu. Healing well. He has completed oral Keflex. Still has open area of granulation tissue to the center but is decreasing in size. No drainage tenderness or warmth. Will continue wound care at home and discussed signs and symptoms to monitor for. Will follow-up again in 4 weeks for recheck sooner with any new or worsening symptoms. #Chronic low back pain. Followed by [facility] pain clinic and is currently getting epidural injections without significant improvement. He has follow-up with them in 2-1/2 weeks and they may be considering an MRI to further evaluate. Will follow-up with me in 1 month sooner with any concerns. 10/01/2024 Acute cellulitis (ICD-10 - L03.90) #Cellulitis. Left lower extremity anterior lu. Healing well. He has completed oral Keflex. Still has open area of granulation tissue to the center but is decreasing in size. No drainage tenderness or warmth. Will continue wound care at home and discussed signs and symptoms to monitor for. Will follow-up again in 4 weeks for recheck sooner with any new or worsening symptoms. #Chronic low back pain. Followed by [facility] pain clinic and is currently getting epidural injections without significant improvement. He has follow-up with them in 2-1/2 weeks and they may be considering an MRI to further evaluate. Will follow-up with me in 1 month sooner with any concerns. 11/05/2024 Low back pain, unspecified (ICD-10 - M54.50) #Spinal stenosis. He is chronic low back pain with worsening symptoms and decreased effectiveness of spinal injections. Recent MRI done shows severe spinal stenosis on the left side at L5 and moderate on the right side. He does have left-sided leg weakness low back pain and left leg pain. He is scheduled to see neurosurgeon Dr. Chin on November 18 to discuss next steps. Declines walker at this time. Discussed signs and symptoms to monitor for. #Chronic low back pain. Followed by [facility] pain clinic and is currently getting epidural injections without significant improvement. Had follow up MRI as above. #Constipation. Mild. Discussed bowel regimen. Start miralax once daily. Cut back if loose stools. He did have recent colonoscopy last month. #cellulitis- Resolved #A-fib. Denies any chest pain shortness of breath or palpitations. Rate controlled. Anticoagulated on Coumadin and managed by Coumadin clinic in [place]. Most recent INR yesterday was 2.1. Currently on Coumadin 5 mg 4 days a week and 2.5 mg 3 days a week. Dose has been stable for several years. Case discussed with collaborating physician Moustapha Brooks who reviewed the assessment and plan. Chart, medications, labs, vital signs reviewed. Dictation was accomplished with the use of pMDsoft voice recognition software, prone to medical misidentifications and grammatical errors. This is unintentional and the practitioner does try to identify and correct these, but some could still be present. Please do not hesitate to contact practitioner for clarification. All questions answered to patients satisfaction. Patient verbalized understanding of diagnosis and treatments explained. To call sooner prior to next visit it any questions/concerns arise. 11/05/2024 Spinal stenosis of lumbar region with neurogenic claudication (ICD-10 - M48.062) #Spinal stenosis. He is chronic low back pain with worsening symptoms and decreased effectiveness of spinal injections. Recent MRI done shows severe spinal stenosis on the left side at L5 and moderate on the right side. He does have left-sided leg weakness low back pain and left leg pain. He is scheduled to see neurosurgeon Dr. Chin on November 18 to discuss next steps. Declines walker at this time. Discussed signs and symptoms to monitor for. #Chronic low back pain. Followed by [facility] pain clinic and is currently getting epidural injections without significant improvement. Had follow up MRI as above. #Constipation. Mild. Discussed bowel regimen. Start miralax once daily. Cut back if loose stools. He did have recent colonoscopy last month. #cellulitis- Resolved #A-fib. Denies any chest pain shortness of breath or palpitations. Rate controlled. Anticoagulated on Coumadin and managed by Coumadin clinic in [place]. Most recent INR yesterday was 2.1. Currently on Coumadin 5 mg 4 days a week and 2.5 mg 3 days a week. Dose has been stable for several years. Case discussed with collaborating physician Moustapha Brooks who reviewed the assessment and plan. Chart, medications, labs, vital signs reviewed. Dictation was accomplished with the use of pMDsoft voice recognition software, prone to medical misidentifications and grammatical errors. This is unintentional and the practitioner does try to identify and correct these, but some could still be present. Please do not hesitate to contact practitioner for clarification. All questions answered to patients satisfaction. Patient verbalized understanding of diagnosis and treatments explained. To call sooner prior to next visit it any questions/concerns arise. 10/01/2024 Low back pain, unspecified (ICD-10 - M54.50) #Cellulitis. Left lower extremity anterior lu. Healing well. He has completed oral Keflex. Still has open area of granulation tissue to the center but is decreasing in size. No drainage tenderness or warmth. Will continue wound care at home and discussed signs and symptoms to monitor for. Will follow-up again in 4 weeks for recheck sooner with any new or worsening symptoms. #Chronic low back pain. Followed by [facility] pain clinic and is currently getting epidural injections without significant improvement. He has follow-up with them in 2-1/2 weeks and they may be considering an MRI to further evaluate. Will follow-up with me in 1 month sooner with any concerns. 08/19/2024 Blood in stool (ICD-10 - K92.1) Jose Manuel is a pleasant 68-year-old male with a PMH of HLD, HTN, A-fib on warfarin, hypothyroidism, gout, T2DM, prostate cancer that presents for follow-up appointment. #Blood in stool: Patient previously presented for 2 episodes of blood coating his stool. Laboratory evaluation including CBC and PT/INR ordered for continued evaluation at that time. Labs drawn 08/13/2024 reveal hemoglobin 13.3, hematocrit 40.5, RBC 4.11 - consistent with patient's baseline when compared to labs drawn in May and July 2024. INR mildly subtherapeutic at 1.8. Last INR available for my review was therapeutic at 2.4, this lab was drawn 07/15/2024. Patient due for repeat labs 08/27. Patient denies any repeat Episodes of blood in the stool. Feeling well, he is encouraged to follow-up with auxiliary powerplant operator, Dr. 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 Reviewed return to office/ED protocol. Patient scheduled to follow-up in office 09/17/2024 at which time his CBC and PT/INR will be repeated. #A-fib: Heart rate normal at 93. Patient follows with Dr. Montoya. Currently taking diltiazem 300 mg, and warfarin 5 mg with compliance. Patient is encouraged to continue current regimen and follow-up with cardiology as scheduled. #HTN: BP stable in office at 120/66. Continue regimen of losartan 100 mg once daily and furosemide 40 mg once daily. #HLD: Continue pravastatin 40 mg once daily. #T2DM: Continue metformin 500 mg once daily. #Prostate cancer: Patient with history of prostate cancer, has undergone radiation treatment and is currently following with [facility], due to see them again 10/21/2024. Currently taking Zytiga with prednisone. Plan to request records from [facility] for continued evaluation. #Hypothyroidism: Clinically the patient is euthyroid, continue levothyroxine 100 mcg daily. All questions answered to the patient's satisfaction. Patient demonstrates understanding of diagnosis and treatments discussed. Follow-up at next scheduled appointment in September for follow-up with lab review, sooner should any questions/concerns arise. Case discussed with collaborating physician Jose Brooks who has reviewed the assessment/plan. Chart, medications, labs, and vital signs reviewed. Dictation completed with the use of pMDsoft voice recognition software, prone to medical misidentifications and grammatical errors. All errors are unintentional. Although the practitioner does try to identify and correct errors, some may be present. Please do not hesitate to contact the practitioner for clarification. 11/05/2024 Other chronic pain (ICD-10 - G89.29) #Spinal stenosis. He is chronic low back pain with worsening symptoms and decreased effectiveness of spinal injections. Recent MRI done shows severe spinal stenosis on the left side at L5 and moderate on the right side. He does have left-sided leg weakness low back pain and left leg pain. He is scheduled to see neurosurgeon Dr. Chin on November 18 to discuss next steps. Declines walker at this time. Discussed signs and symptoms to monitor for. #Chronic low back pain. Followed by [facility] pain clinic and is currently getting epidural injections without significant improvement. Had follow up MRI as above. #Constipation. Mild. Discussed bowel regimen. Start miralax once daily. Cut back if loose stools. He did have recent colonoscopy last month. #cellulitis- Resolved #A-fib. Denies any chest pain shortness of breath or palpitations. Rate controlled. Anticoagulated on Coumadin and managed by Coumadin clinic in [place]. Most recent INR yesterday was 2.1. Currently on Coumadin 5 mg 4 days a week and 2.5 mg 3 days a week. Dose has been stable for several years. Case discussed with collaborating physician Moustapha Brooks who reviewed the assessment and plan. Chart, medications, labs, vital signs reviewed. Dictation was accomplished with the use of pMDsoft voice recognition software, prone to medical misidentifications and grammatical errors. This is unintentional and the practitioner does try to identify and correct these, but some could still be present. Please do not hesitate to contact practitioner for clarification. All questions answered to patients satisfaction. Patient verbalized understanding of diagnosis and treatments explained. To call sooner prior to next visit it any questions/concerns arise. 09/17/2024 Paroxysmal atrial fibrillation (ICD-10 - I48.0) Patient treated for acute cellulitis to complete K-Flex and wound care done. Hyperlipidemia and back pain stable and patient will continue with current medications for COPD patient is on inhalers.. He has lost 30 pounds with diet and exercise he also is on Coumadin and follows up with Coumadin clinic at [place].. Possible interaction with Coumadin and Keflex and patient has been educated and last INR was 1.8 and has follow-up with Coumadin clinic. Patient will see Samanta in 2 weeks for wound check 07/22/2024 Hyperlipidemia, unspecified (ICD-10 - E78.5) Jose Manuel is a 68-year-old male with a PMH of HLD, HTN, A-fib on Coumadin, hypothyroidism, gout, type 2 diabetes that presents for evaluation of blood in stool x2. Patient reports small amount of bright red blood coating stool after 2 separate bowel movements, states he has never had this occur before. Patient brought in picture for my review. In the photo, there is a small amount of bright red blood streaking and otherwise normal appearing bowel movement. Patient otherwise feeling well. Exam within normal limits. Laboratory evaluation including CBC, PT/INR, and stool guaiac test x3 ordered. Patient is educated on how to apply stool sample to guaiac card. Plan to communicate with Dr. Motta in an attempt to move colonoscopy up for sooner than December. ED protocol reviewed. The patient is educated to seek immediate medical attention should he develop any chest pain, SOB, hemoptysis, dizziness, syncope, large amounts of blood in the stool, or black tarry stool. All questions answered to the patient's satisfaction. Patient demonstrates understanding of diagnosis and treatments discussed. Follow-up in 1 month, sooner should any questions/concerns arise. Case discussed with collaborating physician Jose Brooks who has reviewed the assessment/plan. Chart, medications, labs, and vital signs reviewed. Dictation completed with the use of pMDsoft voice recognition software, prone to medical misidentifications and grammatical errors. All errors are unintentional. Although the practitioner does try to identify and correct errors, some may be present. Please do not hesitate to contact the practitioner for clarification. 08/19/2024 Hyperlipidemia, unspecified (ICD-10 - E78.5) Jose Manuel is a pleasant 68-year-old male with a PMH of HLD, HTN, A-fib on warfarin, hypothyroidism, gout, T2DM, prostate cancer that presents for follow-up appointment. #Blood in stool: Patient previously presented for 2 episodes of blood coating his stool. Laboratory evaluation including CBC and PT/INR ordered for continued evaluation at that time. Labs drawn 08/13/2024 reveal hemoglobin 13.3, hematocrit 40.5, RBC 4.11 - consistent with patient's baseline when compared to labs drawn in May and July 2024. INR mildly subtherapeutic at 1.8. Last INR available for my review was therapeutic at 2.4, this lab was drawn 07/15/2024. Patient due for repeat labs 08/27. Patient denies any repeat Episodes of blood in the stool. Feeling well, he is encouraged to follow-up with auxiliary powerplant operator, Dr. 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 Reviewed return to office/ED protocol. Patient scheduled to follow-up in office 09/17/2024 at which time his CBC and PT/INR will be repeated. #A-fib: Heart rate normal at 93. Patient follows with Dr. Montoya. Currently taking diltiazem 300 mg, and warfarin 5 mg with compliance. Patient is encouraged to continue current regimen and follow-up with cardiology as scheduled. #HTN: BP stable in office at 120/66. Continue regimen of losartan 100 mg once daily and furosemide 40 mg once daily. #HLD: Continue pravastatin 40 mg once daily. #T2DM: Continue metformin 500 mg once daily. #Prostate cancer: Patient with history of prostate cancer, has undergone radiation treatment and is currently following with [facility] at [facility], due to see them again 10/21/2024. Currently taking Zytiga with prednisone. Plan to request records from [facility] for continued evaluation. #Hypothyroidism: Clinically the patient is euthyroid, continue levothyroxine 100 mcg daily. All questions answered to the patient's satisfaction. Patient demonstrates understanding of diagnosis and treatments discussed. Follow-up at next scheduled appointment in September for follow-up with lab review, sooner should any questions/concerns arise. Case discussed with collaborating physician Jose Brooks who has reviewed the assessment/plan. Chart, medications, labs, and vital signs reviewed. Dictation completed with the use of pMDsoft voice recognition software, prone to medical misidentifications and grammatical errors. All errors are unintentional. Although the practitioner does try to identify and correct errors, some may be present. Please do not hesitate to contact the practitioner for clarification. 06/16/2024 Essential (primary) hypertension (ICD-10 - I10) Patient has diagnosis of diabetes mellitus. Discussed the role of new diabetic medications including glucagon like peptide, their impact on insulin resistance, side effects that are not limited to pancreatitis and contraindication certain thyroid tumors, nausea and vomiting. Discussed the role of Januvia or Farxiga, which can cause glucose leakage in the urine, prevent progression of chronic kidney disease, prevention of congestive heart failure and possible long-term goal in controlling and keeping and maintaining hemoglobin A1c levels. Possible side effects include but not limited to urinary tract infections yeast infections, and rare side effect of gangrene. This was mostly seen with Invokana but can be seen in other class of medicines like Jardiance and Farxiga. Discussed role of metformin oral hypoglycemics and use of long-term insulin short and long-acting. Discussed long-term side effects benefits and then subsequent discussion on role of lifestyle which is most powerful in controlling blood sugar levels with elimination of processed food intake of healthy fruits and vegetables, regular diet and exercise movement when appropriate with goal of greater than 6000 steps a day unless limited by severe arthritis, and other exercise more modalities including swimming and spinning as appropriate. Educated on role of insulin resistance fasting insulin levels to detect prediabetes, blood sugar levels and hemoglobin A1c levels. Blood pressure should be kept at 120/80. Discussed role of blood pressure medicines like lisinopril or losartan. Discussed microalbuminuria and albuminuria. Discussed the importance of annual foot exam and retinal eye exams. Discussed LDL level should be below 70 and HDL level should be above 50 if possible and decrease triglyceride levels to below 100 when appropriate. Discussed importance of regular follow-up with primary care physician, men's basketball coach and 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 Patient is doing well hemoglobin A1c 6.1 taking medications as prescribed. Continue medical weight loss continue to hold Coumadin for injection in the spine tomorrow and then follow-up in 3 months 01/13/2024 Chronic obstructive pulmonary disease, unspecified (ICD-10 - J44.9) Patient has bee n history of multiple medical problems including paroxysmal atrial fibrillation COPD type 2 diabetes mellitus with symptoms of upper respiratory tract infection s/p swab which was negative. Patient will be started on antibiotics for bronchitis and call us if not better 01/03/2024 Hyperlipidemia, unspecified (ICD-10 - E78.5) Jose Manuel is a 68-year-old male who presents the office for a urgent care visit. Patient states that his symptoms started on Saturday including headache, cough, wheezing, shortness of breath. Went to urgent care on Saturday for which he was prescribed prednisone, has been taking with compliance, no side effects, and states that he is not noticing any improvement. Does have cataract surgery yesterday, but was postponed secondary to being sick. Scheduled for the right eye on the , and the left eye on the and is requesting a potential antibiotic. Swab for COVID, flu, RSV, still pending. If negative, will prescribe a Z-Shane. Patient has tolerated well in the past with resolution of similar symptoms in the past. Educated on proper use, side effects. Educated on conservative treatment such as tea, honey, rest, hydration. Discussed particular treatments for symptomatic [id number] as well. All quetsions answered to patients satisfaction. Patient verbalized understanding of diagnosis and treatments explained. To call sooner prior to next visit it any questions/concerns arise. Case discussed with collaborating physician Alvarez Brooks who reviewed the assessment and plan. Chart, medications, labs, vital signs reviewed. Dictation was accomplished with the use of pMDsoft voice recognition software, prone to medical misidentifications and grammatical errors. This is unintentional and the practitioner does try to identify and correct these, but some could still be present. Please do not hesitate to contact practitioner for clarification. 12/25/2023 Paroxysmal atrial fibrillation (ICD-10 - I48.0) Patient is acceptable risk for cataract surgery continue current treatment for atrial fibrillation continue anticoagulation management of diabetes COPD and focus on lifestyle changes for medical weight loss 12/25/2023 Chronic obstructive pulmonary disease, unspecified (ICD-10 - J44.9) Patient is acceptable risk for cataract surgery continue current treatment for atrial fibrillation continue anticoagulation management of diabetes COPD and focus on lifestyle changes for medical weight loss 01/03/2024 Paroxysmal atrial fibrillation (ICD-10 - I48.0) Jose Manuel is a 68-year-old male who presents the office for a urgent care visit. Patient states that his symptoms started on Saturday including headache, cough, wheezing, shortness of breath. Went to urgent care on Saturday for which he was prescribed prednisone, has been taking with compliance, no side effects, and states that he is not noticing any improvement. Does have cataract surgery yesterday, but was postponed secondary to being sick. Scheduled for the right eye on the , and the left eye on the and is requesting a potential antibiotic. Swab for COVID, flu, RSV, still pending. If negative, will prescribe a Z-Shane. Patient has tolerated well in the past with resolution of similar symptoms in the past. Educated on proper use, side effects. Educated on conservative treatment such as tea, honey, rest, hydration. Discussed particular treatments for symptomatic [id number] as well. All quetsions answered to patients satisfaction. Patient verbalized understanding of diagnosis and treatments explained. To call sooner prior to next visit it any questions/concerns arise. Case discussed with collaborating physician Alvarez Brooks who reviewed the assessment and plan. Chart, medications, labs, vital signs reviewed. Dictation was accomplished with the use of pMDsoft voice recognition software, prone to medical misidentifications and grammatical errors. This is unintentional and the practitioner does try to identify and correct these, but some could still be present. Please do not hesitate to contact practitioner for clarification. 01/13/2024 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, unspecified whether jail insulin use (ICD-10 - E11.8) Patient has bee n history of multiple medical problems including paroxysmal atrial fibrillation COPD type 2 diabetes mellitus with symptoms of upper respiratory tract infection s/p swab which was negative. Patient will be started on antibiotics for bronchitis and call us if not better 06/16/2024 Hyperlipidemia, unspecified hyperlipidemia type (ICD-10 - E78.5) Patient has diagnosis of diabetes mellitus. Discussed the role of new diabetic medications including glucagon like peptide, their impact on insulin resistance, side effects that are not limited to pancreatitis and contraindication certain thyroid tumors, nausea and vomiting. Discussed the role of Januvia or Farxiga, which can cause glucose leakage in the urine, prevent progression of chronic kidney disease, prevention of congestive heart failure and possible long-term goal in controlling and keeping and maintaining hemoglobin A1c levels. Possible side effects include but not limited to urinary tract infections yeast infections, and rare side effect of gangrene. This was mostly seen with Invokana but can be seen in other class of medicines like Jardiance and Farxiga. Discussed role of metformin oral hypoglycemics and use of long-term insulin short and long-acting. Discussed long-term side effects benefits and then subsequent discussion on role of lifestyle which is most powerful in controlling blood sugar levels with elimination of processed food intake of healthy fruits and vegetables, regular diet and exercise movement when appropriate with goal of greater than 6000 steps a day unless limited by severe arthritis, and other exercise more modalities including swimming and spinning as appropriate. Educated on role of insulin resistance fasting insulin levels to detect prediabetes, blood sugar levels and hemoglobin A1c levels. Blood pressure should be kept at 120/80. Discussed role of blood pressure medicines like lisinopril or losartan. Discussed microalbuminuria and albuminuria. Discussed the importance of annual foot exam and retinal eye exams. Discussed LDL level should be below 70 and HDL level should be above 50 if possible and decrease triglyceride levels to below 100 when appropriate. Discussed importance of regular follow-up with primary care physician, men's basketball coach and 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 Patient is doing well hemoglobin A1c 6.1 taking medications as prescribed. Continue medical weight loss continue to hold Coumadin for injection in the spine tomorrow and then follow-up in 3 months 07/22/2024 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, unspecified whether jail insulin use (ICD-10 - E11.8) Jose Manuel is a 68-year-old male with a PMH of HLD, HTN, A-fib on Coumadin, hypothyroidism, gout, type 2 diabetes that presents for evaluation of blood in stool x2. Patient reports small amount of bright red blood coating stool after 2 separate bowel movements, states he has never had this occur before. Patient brought in picture for my review. In the photo, there is a small amount of bright red blood streaking and otherwise normal appearing bowel movement. Patient otherwise feeling well. Exam within normal limits. Laboratory evaluation including CBC, PT/INR, and stool guaiac test x3 ordered. Patient is educated on how to apply stool sample to guaiac card. Plan to communicate with Dr. Motta in an attempt to move colonoscopy up for sooner than December. ED protocol reviewed. The patient is educated to seek immediate medical attention should he develop any chest pain, SOB, hemoptysis, dizziness, syncope, large amounts of blood in the stool, or black tarry stool. All questions answered to the patient's satisfaction. Patient demonstrates understanding of diagnosis and treatments discussed. Follow-up in 1 month, sooner should any questions/concerns arise. Case discussed with collaborating physician Jose Brooks who has reviewed the assessment/plan. Chart, medications, labs, and vital signs reviewed. Dictation completed with the use of pMDsoft voice recognition software, prone to medical misidentifications and grammatical errors. All errors are unintentional. Although the practitioner does try to identify and correct errors, some may be present. Please do not hesitate to contact the practitioner for clarification. 09/17/2024 Chronic obstructive pulmonary disease, unspecified (ICD-10 - J44.9) Patient treated for acute cellulitis to complete K-Flex and wound care done. Hyperlipidemia and back pain stable and patient will continue with current medications for COPD patient is on inhalers.. He has lost 30 pounds with diet and exercise he also is on Coumadin and follows up with Coumadin clinic at [place].. Possible interaction with Coumadin and Keflex and patient has been educated and last INR was 1.8 and has follow-up with Coumadin clinic. Patient will see Samanta in 2 weeks for wound check 08/19/2024 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, unspecified whether termite exterminator helper insulin use (ICD-10 - E11.8) Jose Manuel is a pleasant 68-year-old male with a PMH of HLD, HTN, A-fib on warfarin, hypothyroidism, gout, T2DM, prostate cancer that presents for follow-up appointment. #Blood in stool: Patient previously presented for 2 episodes of blood coating his stool. Laboratory evaluation including CBC and PT/INR ordered for continued evaluation at that time. Labs drawn 08/13/2024 reveal hemoglobin 13.3, hematocrit 40.5, RBC 4.11 - consistent with patient's baseline when compared to labs drawn in May and July 2024. INR mildly subtherapeutic at 1.8. Last INR available for my review was therapeutic at 2.4, this lab was drawn 07/15/2024. Patient due for repeat labs 08/27. Patient denies any repeat Episodes of blood in the stool. Feeling well, he is encouraged to follow-up with auxiliary powerplant operator, Dr. 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 Reviewed return to office/ED protocol. Patient scheduled to follow-up in office 09/17/2024 at which time his CBC and PT/INR will be repeated. #A-fib: Heart rate normal at 93. Patient follows with Dr. Montoya. Currently taking diltiazem 300 mg, and warfarin 5 mg with compliance. Patient is encouraged to continue current regimen and follow-up with cardiology as scheduled. #HTN: BP stable in office at 120/66. Continue regimen of losartan 100 mg once daily and furosemide 40 mg once daily. #HLD: Continue pravastatin 40 mg once daily. #T2DM: Continue metformin 500 mg once daily. #Prostate cancer: Patient with history of prostate cancer, has undergone radiation treatment and is currently following with [facility], due to see them again 10/21/2024. Currently taking Zytiga with prednisone. Plan to request records from [facility] for continued evaluation. #Hypothyroidism: Clinically the patient is euthyroid, continue levothyroxine 100 mcg daily. All questions answered to the patient's satisfaction. Patient demonstrates understanding of diagnosis and treatments discussed. Follow-up at next scheduled appointment in September for follow-up with lab review, sooner should any questions/concerns arise. Case discussed with collaborating physician Jose Brooks who has reviewed the assessment/plan. Chart, medications, labs, and vital signs reviewed. Dictation completed with the use of pMDsoft voice recognition software, prone to medical misidentifications and grammatical errors. All errors are unintentional. Although the practitioner does try to identify and correct errors, some may be present. Please do not hesitate to contact the practitioner for clarification. 10/01/2024 Chronic obstructive pulmonary disease, unspecified (ICD-10 - J44.9) #Cellulitis. Left lower extremity anterior lu. Healing well. He has completed oral Keflex. Still has open area of granulation tissue to the center but is decreasing in size. No drainage tenderness or warmth. Will continue wound care at home and discussed signs and symptoms to monitor for. Will follow-up again in 4 weeks for recheck sooner with any new or worsening symptoms. #Chronic low back pain. Followed by [facility] pain clinic and is currently getting epidural injections without significant improvement. He has follow-up with them in 2-1/2 weeks and they may be considering an MRI to further evaluate. Will follow-up with me in 1 month sooner with any concerns. 11/05/2024 Acute cellulitis (ICD-10 - L03.90) #Spinal stenosis. He is chronic low back pain with worsening symptoms and decreased effectiveness of spinal injections. Recent MRI done shows severe spinal stenosis on the left side at L5 and moderate on the right side. He does have left-sided leg weakness low back pain and left leg pain. He is scheduled to see neurosurgeon Dr. Chin on November 18 to discuss next steps. Declines walker at this time. Discussed signs and symptoms to monitor for. #Chronic low back pain. Followed by [facility] pain clinic and is currently getting epidural injections without significant improvement. Had follow up MRI as above. #Constipation. Mild. Discussed bowel regimen. Start miralax once daily. Cut back if loose stools. He did have recent colonoscopy last month. #cellulitis- Resolved #A-fib. Denies any chest pain shortness of breath or palpitations. Rate controlled. Anticoagulated on Coumadin and managed by Coumadin clinic in [place]. Most recent INR yesterday was 2.1. Currently on Coumadin 5 mg 4 days a week and 2.5 mg 3 days a week. Dose has been stable for several years. Case discussed with collaborating physician Moustapha Brooks who reviewed the assessment and plan. Chart, medications, labs, vital signs reviewed. Dictation was accomplished with the use of pMDsoft voice recognition software, prone to medical misidentifications and grammatical errors. This is unintentional and the practitioner does try to identify and correct these, but some could still be present. Please do not hesitate to contact practitioner for clarification. All questions answered to patients satisfaction. Patient verbalized understanding of diagnosis and treatments explained. To call sooner prior to next visit it any questions/concerns arise. 10/01/2024 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, unspecified whether jail insulin use (ICD-10 - E11.8) #Cellulitis. Left lower extremity anterior lu. Healing well. He has completed oral Keflex. Still has open area of granulation tissue to the center but is decreasing in size. No drainage tenderness or warmth. Will continue wound care at home and discussed signs and symptoms to monitor for. Will follow-up again in 4 weeks for recheck sooner with any new or worsening symptoms. #Chronic low back pain. Followed by [facility] pain clinic and is currently getting epidural injections without significant improvement. He has follow-up with them in 2-1/2 weeks and they may be considering an MRI to further evaluate. Will follow-up with me in 1 month sooner with any concerns. 11/05/2024 Paroxysmal atrial fibrillation (ICD-10 - I48.0) #Spinal stenosis. He is chronic low back pain with worsening symptoms and decreased effectiveness of spinal injections. Recent MRI done shows severe spinal stenosis on the left side at L5 and moderate on the right side. He does have left-sided leg weakness low back pain and left leg pain. He is scheduled to see neurosurgeon Dr. Chin on November 18 to discuss next steps. Declines walker at this time. Discussed signs and symptoms to monitor for. #Chronic low back pain. Followed by [facility] pain clinic and is currently getting epidural injections without significant improvement. Had follow up MRI as above. #Constipation. Mild. Discussed bowel regimen. Start miralax once daily. Cut back if loose stools. He did have recent colonoscopy last month. #cellulitis- Resolved #A-fib. Denies any chest pain shortness of breath or palpitations. Rate controlled. Anticoagulated on Coumadin and managed by Coumadin clinic in [place]. Most recent INR yesterday was 2.1. Currently on Coumadin 5 mg 4 days a week and 2.5 mg 3 days a week. Dose has been stable for several years. Case discussed with collaborating physician Moustapha Brooks who reviewed the assessment and plan. Chart, medications, labs, vital signs reviewed. Dictation was accomplished with the use of pMDsoft voice recognition software, prone to medical misidentifications and grammatical errors. This is unintentional and the practitioner does try to identify and correct these, but some could still be present. Please do not hesitate to contact practitioner for clarification. All questions answered to patients satisfaction. Patient verbalized understanding of diagnosis and treatments explained. To call sooner prior to next visit it any questions/concerns arise. 08/19/2024 Acquired hypothyroidism (ICD-10 - E03.9) Jose Manuel is a pleasant 68-year-old male with a PMH of HLD, HTN, A-fib on warfarin, hypothyroidism, gout, T2DM, prostate cancer that presents for follow-up appointment. #Blood in stool: Patient previously presented for 2 episodes of blood coating his stool. Laboratory evaluation including CBC and PT/INR ordered for continued evaluation at that time. Labs drawn 08/13/2024 reveal hemoglobin 13.3, hematocrit 40.5, RBC 4.11 - consistent with patient's baseline when compared to labs drawn in May and July 2024. INR mildly subtherapeutic at 1.8. Last INR available for my review was therapeutic at 2.4, this lab was drawn 07/15/2024. Patient due for repeat labs 08/27. Patient denies any repeat Episodes of blood in the stool. Feeling well, he is encouraged to follow-up with auxiliary powerplant operator, Dr. 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 Reviewed return to office/ED protocol. Patient scheduled to follow-up in office 09/17/2024 at which time his CBC and PT/INR will be repeated. #A-fib: Heart rate normal at 93. Patient follows with Dr. Montoya. Currently taking diltiazem 300 mg, and warfarin 5 mg with compliance. Patient is encouraged to continue current regimen and follow-up with cardiology as scheduled. #HTN: BP stable in office at 120/66. Continue regimen of losartan 100 mg once daily and furosemide 40 mg once daily. #HLD: Continue pravastatin 40 mg once daily. #T2DM: Continue metformin 500 mg once daily. #Prostate cancer: Patient with history of prostate cancer, has undergone radiation treatment and is currently following with [facility] at [facility], due to see them again 10/21/2024. Currently taking Zytiga with prednisone. Plan to request records from [facility] for continued evaluation. #Hypothyroidism: Clinically the patient is euthyroid, continue levothyroxine 100 mcg daily. All questions answered to the patient's satisfaction. Patient demonstrates understanding of diagnosis and treatments discussed. Follow-up at next scheduled appointment in September for follow-up with lab review, sooner should any questions/concerns arise. Case discussed with collaborating physician Jose Brooks who has reviewed the assessment/plan. Chart, medications, labs, and vital signs reviewed. Dictation completed with the use of pMDsoft voice recognition software, prone to medical misidentifications and grammatical errors. All errors are unintentional. Although the practitioner does try to identify and correct errors, some may be present. Please do not hesitate to contact the practitioner for clarification. 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 Hyperlipidemia and back pain stable and patient will continue with current medications for COPD patient is on inhalers.. He has lost 30 pounds with diet and exercise he also is on Coumadin and follows up with Coumadin clinic at [place].. Possible interaction with Coumadin and Keflex and patient has been educated and last INR was 1.8 and has follow-up with Coumadin clinic. Patient will see Samanta in 2 weeks for wound check 07/22/2024 Acquired hypothyroidism (ICD-10 - E03.9) Jose Manuel is a 68-year-old male with a PMH of HLD, HTN, A-fib on Coumadin, hypothyroidism, gout, type 2 diabetes that presents for evaluation of blood in stool x2. Patient reports small amount of bright red blood coating stool after 2 separate bowel movements, states he has never had this occur before. Patient brought in picture for my review. In the photo, there is a small amount of bright red blood streaking and otherwise normal appearing bowel movement. Patient otherwise feeling well. Exam within normal limits. Laboratory evaluation including CBC, PT/INR, and stool guaiac test x3 ordered. Patient is educated on how to apply stool sample to guaiac card. Plan to communicate with Dr. Motta in an attempt to move colonoscopy up for sooner than December. ED protocol reviewed. The patient is educated to seek immediate medical attention should he develop any chest pain, SOB, hemoptysis, dizziness, syncope, large amounts of blood in the stool, or black tarry stool. All questions answered to the patient's satisfaction. Patient demonstrates understanding of diagnosis and treatments discussed. Follow-up in 1 month, sooner should any questions/concerns arise. Case discussed with collaborating physician Jose Brooks who has reviewed the assessment/plan. Chart, medications, labs, and vital signs reviewed. Dictation completed with the use of pMDsoft voice recognition software, prone to medical misidentifications and grammatical errors. All errors are unintentional. Although the practitioner does try to identify and correct errors, some may be present. Please do not hesitate to contact the practitioner for clarification. 06/16/2024 Acquired hypothyroidism (ICD-10 - E03.9) Patient has diagnosis of diabetes mellitus. Discussed the role of new diabetic medications including glucagon like peptide, their impact on insulin resistance, side effects that are not limited to pancreatitis and contraindication certain thyroid tumors, nausea and vomiting. Discussed the role of Januvia or Farxiga, which can cause glucose leakage in the urine, prevent progression of chronic kidney disease, prevention of congestive heart failure and possible long-term goal in controlling and keeping and maintaining hemoglobin A1c levels. Possible side effects include but not limited to urinary tract infections yeast infections, and rare side effect of gangrene. This was mostly seen with Invokana but can be seen in other class of medicines like Jardiance and Farxiga. Discussed role of metformin oral hypoglycemics and use of long-term insulin short and long-acting. Discussed long-term side effects benefits and then subsequent discussion on role of lifestyle which is most powerful in controlling blood sugar levels with elimination of processed food intake of healthy fruits and vegetables, regular diet and exercise movement when appropriate with goal of greater than 6000 steps a day unless limited by severe arthritis, and other exercise more modalities including swimming and spinning as appropriate. Educated on role of insulin resistance fasting insulin levels to detect prediabetes, blood sugar levels and hemoglobin A1c levels. Blood pressure should be kept at 120/80. Discussed role of blood pressure medicines like lisinopril or losartan. Discussed microalbuminuria and albuminuria. Discussed the importance of annual foot exam and retinal eye exams. Discussed LDL level should be below 70 and HDL level should be above 50 if possible and decrease triglyceride levels to below 100 when appropriate. Discussed importance of regular follow-up with primary care physician, men's basketball coach and 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 Patient is doing well hemoglobin A1c 6.1 taking medications as prescribed. Continue medical weight loss continue to hold Coumadin for injection in the spine tomorrow and then follow-up in 3 months 01/03/2024 Chronic obstructive pulmonary disease, unspecified (ICD-10 - J44.9) Jose Manuel is a 68-year-old male who presents the office for a urgent care visit. Patient states that his symptoms started on Saturday including headache, cough, wheezing, shortness of breath. Went to urgent care on Saturday for which he was prescribed prednisone, has been taking with compliance, no side effects, and states that he is not noticing any improvement. Does have cataract surgery yesterday, but was postponed secondary to being sick. Scheduled for the right eye on the , and the left eye on the and is requesting a potential antibiotic. Swab for COVID, flu, RSV, still pending. If negative, will prescribe a Z-Shane. Patient has tolerated well in the past with resolution of similar symptoms in the past. Educated on proper use, side effects. Educated on conservative treatment such as tea, honey, rest, hydration. Discussed particular treatments for symptomatic [id number] as well. All quetsions answered to patients satisfaction. Patient verbalized understanding of diagnosis and treatments explained. To call sooner prior to next visit it any questions/concerns arise. Case discussed with collaborating physician Alvarez Brooks who reviewed the assessment and plan. Chart, medications, labs, vital signs reviewed. Dictation was accomplished with the use of pMDsoft voice recognition software, prone to medical misidentifications and grammatical errors. This is unintentional and the practitioner does try to identify and correct these, but some could still be present. Please do not hesitate to contact practitioner for clarification. 12/25/2023 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, unspecified whether jail insulin use (ICD-10 - E11.8) Patient is acceptable risk for cataract surgery continue current treatment for atrial fibrillation continue anticoagulation management of diabetes COPD and focus on lifestyle changes for medical weight loss 07/22/2024 Type 2 diabetes mellitus without complication, without long-term current use of insulin (ICD-10 - E11.9) Jose Manuel is a 68-year-old male with a PMH of HLD, HTN, A-fib on Coumadin, hypothyroidism, gout, type 2 diabetes that presents for evaluation of blood in stool x2. Patient reports small amount of bright red blood coating stool after 2 separate bowel movements, states he has never had this occur before. Patient brought in picture for my review. In the photo, there is a small amount of bright red blood streaking and otherwise normal appearing bowel movement. Patient otherwise feeling well. Exam within normal limits. Laboratory evaluation including CBC, PT/INR, and stool guaiac test x3 ordered. Patient is educated on how to apply stool sample to guaiac card. Plan to communicate with Dr. Motta in an attempt to move colonoscopy up for sooner than December. ED protocol reviewed. The patient is educated to seek immediate medical attention should he develop any chest pain, SOB, hemoptysis, dizziness, syncope, large amounts of blood in the stool, or black tarry stool. All questions answered to the patient's satisfaction. Patient demonstrates understanding of diagnosis and treatments discussed. Follow-up in 1 month, sooner should any questions/concerns arise. Case discussed with collaborating physician Jose Brooks who has reviewed the assessment/plan. Chart, medications, labs, and vital signs reviewed. Dictation completed with the use of pMDsoft voice recognition software, prone to medical misidentifications and grammatical errors. All errors are unintentional. Although the practitioner does try to identify and correct errors, some may be present. Please do not hesitate to contact the practitioner for clarification. 11/05/2024 Chronic anticoagulation (ICD-10 - Z79.01) #Spinal stenosis. He is chronic low back pain with worsening symptoms and decreased effectiveness of spinal injections. Recent MRI done shows severe spinal stenosis on the left side at L5 and moderate on the right side. He does have left-sided leg weakness low back pain and left leg pain. He is scheduled to see neurosurgeon Dr. Chin on November 18 to discuss next steps. Declines walker at this time. Discussed signs and symptoms to monitor for. #Chronic low back pain. Followed by [facility] pain clinic and is currently getting epidural injections without significant improvement. Had follow up MRI as above. #Constipation. Mild. Discussed bowel regimen. Start miralax once daily. Cut back if loose stools. He did have recent colonoscopy last month. #cellulitis- Resolved #A-fib. Denies any chest pain shortness of breath or palpitations. Rate controlled. Anticoagulated on Coumadin and managed by Coumadin clinic in [place]. Most recent INR yesterday was 2.1. Currently on Coumadin 5 mg 4 days a week and 2.5 mg 3 days a week. Dose has been stable for several years. Case discussed with collaborating physician Moustapha Brooks who reviewed the assessment and plan. Chart, medications, labs, vital signs reviewed. Dictation was accomplished with the use of pMDsoft voice recognition software, prone to medical misidentifications and grammatical errors. This is unintentional and the practitioner does try to identify and correct these, but some could still be present. Please do not hesitate to contact practitioner for clarification. All questions answered to patients satisfaction. Patient verbalized understanding of diagnosis and treatments explained. To call sooner prior to next visit it any questions/concerns arise. 08/19/2024 Type 2 diabetes mellitus without complication, without long-term current use of insulin (ICD-10 - E11.9) Jose Manuel is a pleasant 68-year-old male with a PMH of HLD, HTN, A-fib on warfarin, hypothyroidism, gout, T2DM, prostate cancer that presents for follow-up appointment. #Blood in stool: Patient previously presented for 2 episodes of blood coating his stool. Laboratory evaluation including CBC and PT/INR ordered for continued evaluation at that time. Labs drawn 08/13/2024 reveal hemoglobin 13.3, hematocrit 40.5, RBC 4.11 - consistent with patient's baseline when compared to labs drawn in May and July 2024. INR mildly subtherapeutic at 1.8. Last INR available for my review was therapeutic at 2.4, this lab was drawn 07/15/2024. Patient due for repeat labs 08/27. Patient denies any repeat Episodes of blood in the stool. Feeling well, he is encouraged to follow-up with auxiliary powerplant operator, Dr. 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 Reviewed return to office/ED protocol. Patient scheduled to follow-up in office 09/17/2024 at which time his CBC and PT/INR will be repeated. #A-fib: Heart rate normal at 93. Patient follows with Dr. Montoya. Currently taking diltiazem 300 mg, and warfarin 5 mg with compliance. Patient is encouraged to continue current regimen and follow-up with cardiology as scheduled. #HTN: BP stable in office at 120/66. Continue regimen of losartan 100 mg once daily and furosemide 40 mg once daily. #HLD: Continue pravastatin 40 mg once daily. #T2DM: Continue metformin 500 mg once daily. #Prostate cancer: Patient with history of prostate cancer, has undergone radiation treatment and is currently following with [facility], due to see them again 10/21/2024. Currently taking Zytiga with prednisone. Plan to request records from [facility] for continued evaluation. #Hypothyroidism: Clinically the patient is euthyroid, continue levothyroxine 100 mcg daily. All questions answered to the patient's satisfaction. Patient demonstrates understanding of diagnosis and treatments discussed. Follow-up at next scheduled appointment in September for follow-up with lab review, sooner should any questions/concerns arise. Case discussed with collaborating physician Jose Brooks who has reviewed the assessment/plan. Chart, medications, labs, and vital signs reviewed. Dictation completed with the use of pMDsoft voice recognition software, prone to medical misidentifications and grammatical errors. All errors are unintentional. Although the practitioner does try to identify and correct errors, some may be present. Please do not hesitate to contact the practitioner for clarification. 08/19/2024 Prostate cancer (ICD-10 - C61) Jose Manuel is a pleasant 68-year-old male with a PMH of HLD, HTN, A-fib on warfarin, hypothyroidism, gout, T2DM, prostate cancer that presents for follow-up appointment. #Blood in stool: Patient previously presented for 2 episodes of blood coating his stool. Laboratory evaluation including CBC and PT/INR ordered for continued evaluation at that time. Labs drawn 08/13/2024 reveal hemoglobin 13.3, hematocrit 40.5, RBC 4.11 - consistent with patient's baseline when compared to labs drawn in May and July 2024. INR mildly subtherapeutic at 1.8. Last INR available for my review was therapeutic at 2.4, this lab was drawn 07/15/2024. Patient due for repeat labs 08/27. Patient denies any repeat Episodes of blood in the stool. Feeling well, he is encouraged to follow-up with auxiliary powerplant operator, Dr. 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 Reviewed return to office/ED protocol. Patient scheduled to follow-up in office 09/17/2024 at which time his CBC and PT/INR will be repeated. #A-fib: Heart rate normal at 93. Patient follows with Dr. Montoya. Currently taking diltiazem 300 mg, and warfarin 5 mg with compliance. Patient is encouraged to continue current regimen and follow-up with cardiology as scheduled. #HTN: BP stable in office at 120/66. Continue regimen of losartan 100 mg once daily and furosemide 40 mg once daily. #HLD: Continue pravastatin 40 mg once daily. #T2DM: Continue metformin 500 mg once daily. #Prostate cancer: Patient with history of prostate cancer, has undergone radiation treatment and is currently following with [facility], due to see them again 10/21/2024. Currently taking Zytiga with prednisone. Plan to request records from [facility] for continued evaluation. #Hypothyroidism: Clinically the patient is euthyroid, continue levothyroxine 100 mcg daily. All questions answered to the patient's satisfaction. Patient demonstrates understanding of diagnosis and treatments discussed. Follow-up at next scheduled appointment in September for follow-up with lab review, sooner should any questions/concerns arise. Case discussed with collaborating physician Jose Brooks who has reviewed the assessment/plan. Chart, medications, labs, and vital signs reviewed. Dictation completed with the use of pMDsoft voice recognition software, prone to medical misidentifications and grammatical errors. All errors are unintentional. Although the practitioner does try to identify and correct errors, some may be present. Please do not hesitate to contact the practitioner for clarification. PLAN OF TREATMENT Pending Test Test Name Order Date MRI : Lumbosacral Spines 01/22/2019 Chest X-ray PA and lateral 03/25/2018 MRI : Lumbar without contrast 12/26/2021 CBC (COMPLETE BLOOD COUNT) 09/21/2020 CBC (COMPLETE BLOOD COUNT) 12/27/2020 CBC (COMPLETE BLOOD COUNT) 06/16/2018 CBC (COMPLETE BLOOD COUNT) 06/16/2020 CBC (COMPLETE BLOOD COUNT) 10/20/2018 COMPREHENSIVE METABOLIC PANEL 10/20/2018 COMPREHENSIVE METABOLIC PANEL 06/16/2020 COMPREHENSIVE METABOLIC PANEL 06/16/2018 COMPREHENSIVE METABOLIC PANEL 09/21/2020 COMPREHENSIVE METABOLIC PANEL 12/27/2020 HEMOGLOBIN A1C 09/21/2020 HEMOGLOBIN A1C 12/27/2020 HEMOGLOBIN A1C 06/16/2018 HEMOGLOBIN A1C 10/20/2018 LIPID PANEL 10/20/2018 LIPID PANEL 06/16/2020 LIPID PANEL 06/16/2018 LIPID PANEL 09/21/2020 LIPID PANEL 12/27/2020 OCCULT BLOOD SCREEN X 3 07/22/2024 PSA, SCREEN 06/16/2018 TSH 09/21/2020 TSH WITH REFLEX TO FT4 06/16/2018 URIC ACID 06/16/2018 URINALYSIS, COMPLETE 06/16/2018 URINALYSIS, COMPLETE 06/16/2020 URINALYSIS, COMPLETE 12/27/2020 XR Ankle 3+ Views LT 11/10/2018 XR Chest 2 Views 10/09/2021 XR Hip 2+ Views bilat 10/09/2021 XR L-Spine 4+ Views 10/09/2021 PT/INR 07/22/2024 LIPID PANEL, STANDARD 06/16/2024 LIPID PANEL, STANDARD 06/11/2022 LIPID PANEL, STANDARD 11/13/2022 COMPREHENSIVE METABOLIC PANEL 06/16/2024 COMPREHENSIVE METABOLIC PANEL 06/11/2022 COMPREHENSIVE METABOLIC PANEL 11/13/2022 CBC (INCLUDES DIFF/PLT) 11/13/2022 CBC (INCLUDES DIFF/PLT) 07/22/2024 CBC (INCLUDES DIFF/PLT) 06/11/2022 CBC (INCLUDES DIFF/PLT) 06/16/2024 URINALYSIS, COMPLETE 11/13/2022 URINALYSIS, COMPLETE 06/11/2022 HEMOGLOBIN A1c 06/11/2022 TSH 06/16/2024 Next Appt Details Provider Name:Samanta Thomas, 0 01/12/2025 10:30:00 AM, [address] [place] [address] [address], [place], [address], Insurance Providers Payer Name Payer Address Payer Phone Subscriber Number Group Number Insured Name Patient Relationship to Insured Coverage Start Date Coverage End Date Medicare Part B [id number] [address] [place] [id number] JOSE MANUEL KAM Self - patient is the insured 3 [employer] [address] [place] [address] [phone] [id number] JOSE MANUEL KAM Self - patient is the insured MEDICATIONS ADMINISTERED Medication Instructions Date of Administration Dosage Notes MICC B12 INJECTION 06/11/2022 [id number] MEDICAL (GENERAL) HISTORY Medical History History ICD Code Essential (primary) hypertension I10 Hyperlipidemia, unspecified E78.5 Unspecified atrial fibrillation I48.91 Hypothyroidism (acquired) E03.9 Gout, unspecified M10.9 Diabetes mellitus due to underlying cond ition without complications E08.9 Surgical History Surgery Date(Month/Year) gastric lapband and removal colonoscopy 2016 right leg lipoma removal benign cervical fusion cardioversion for afib Dr Steward bilateral cataract December 21 [facility] epidural June 2024
--- OUTSIDE RECORDS SUMMARY | 2024-11-30 13:47 | XMS_ITS ---
Author Organization [facility] Address [address] [place] [id number] Care Team Providers Care Paperhanger Contractor Name Role Phone BROOKSMARIBELL RIOS Primary Care Provider Samanta Thomas Unavailable [phone] ALLERGIES No Known Allergies REASON FOR VISIT Pt here for routine follow up. Pt states he has no concerns. MEDICATIONS Medication SIG (Take, Route, Frequency, Duration) Notes Start Date End Date Status Nitroglycerin 0.[address] 1 TABLET BY MOUTH UNDER TONGUE for 30 days Active traMADol HCl 50 MG 1 tablet as needed dose increase on 04/01/24 Orally twice a day for 30 days 04/14/2024 Active Warfarin Sodium 5 MG 1 tablet Orally Onc e a day for 90 days Bhavya Alvarez Tues, Thurs at 5mg Active tiZANidine HCl 2 MG 1 tablet at bedtime Orally once daily for 30 days as needed Active Levothyroxine Sodium 100 MCG 1 tablet in the morning on an empty stomach Orally Once a day for 90 days Active metFORMIN HCl 500 MG 1 tablet with a symone l Orally Once a day for 90 days Active Pravastatin Sodium 40 MG 1 tablet Orally Once a day for 90 days Active Abiraterone Acetate 500 MG one tablet Oral once daily for 30 days Active Citalopram Hydrobromide 20 MG 1 tablet Orally Once a day for 90 days Active Tylenol Extra Strength 500 MG 2 tabs Orally daily Active dilTIAZem HCl ER 300 MG 1 capsule Orally Once a day Active Losartan Potassium 100 MG 1 tablet Orally Once a day for 90 days Active Pantoprazole Sodium 40 MG 1 tablet Orally Once a day for 90 days Active Furosemide 40 MG 1 tablet Orally Once a day for 90 days Active Calcium 600 MG 1 tablet with meals Orally Twice a day Active predniSONE 5 MG 1 tablet Orally Once a day Active Vitamin D 50 MCG (1999) 1 tablet Orally Once a day Active SOCIAL HISTORY Tobacco Use: Social History Observation Description Date Details (start date - stop date) Former Smoker NA - NA Sex Assigned At : Social History Observation Description Sex Assigned At Unknown Tobacco Use/Smoking Question Answer Notes Are you a former smoker PROBLEMS Problem Type ICD Code Onset Dates Problem Status W/U Status Risk SNOMED Code Notes Problem Chronic anticoagulation (Z79.01) Active confirmed [id number] VITAL SIGNS Heart Rate 100 /min 11/05/2024 Blood pressure systolic 132 mm Hg 11/05/20 24 Blood pressure diastolic 86 mm Hg 024 Weight 272 lbs 11/05/2024 BMI 40.16 kg/m2 11/05/2024 Height 69 in 11/05/2024 Oximetry 97 % 11/05/2024 Encounters Encounter Location Date Provider Diagnosis [address] [facility] [address] [place] [address] 11/05/2024 Samanta Svrcek Low back pain, unspe cified M54.50 ; Spinal stenosis of lumbar region with neurogenic claudication M48.062 ; Other chronic pain G89.29 ; Acute cellulitis L03.90 ; Paroxysmal atrial fibrillation I48.0 and Chronic anticoagulation Z79.01 ASSESSMENTS Encounter Date Diagnosis Assessment Notes Treatment Notes Treatment Clinical Notes Section Notes 11/05/2024 Low back pain, unspecified (ICD-10 - [...] for. #Chronic low back pain. Followed by [facility] pain clinic and is currently getting epidural injections without significant improvement. Had follow up MRI as above. #Constipation. Mild. Discussed bowel regimen. Start miralax once daily. Cut back if loose stools. He did have recent colonoscopy last month. #cellulitis- Resolved #A-fib. Denies any chest pain shortness of breath or palpitations. Rate controlled. Anticoagulated on Coumadin and managed by Coumadin clinic in [place]. Most recent INR yesterday was 2.1. Currently on Coumadin 5 mg 4 days a week and 2.5 mg 3 days a week. Dose has been stable for several years. Case discussed with collaborating physician Moustapha Brooks who reviewed the assessment and plan. Chart, medications, labs, vital signs reviewed. Dictation was accomplished with the use of [employer] voice recognition software, prone to medical misidentifications [...] for. #Chronic low back pain. Followed by [facility] pain clinic and is currently getting epidural injections without significant improvement. Had follow up MRI as above. #Constipation. Mild. Discussed bowel regimen. Start miralax once daily. Cut back if loose stools. He did have recent colonoscopy last month. #cellulitis- Resolved #A-fib. Denies any chest pain shortness of breath or palpitations. Rate controlled. Anticoagulated on Coumadin and managed by Coumadin clinic in [place]. Most recent INR yesterday was 2.1. Currently on Coumadin 5 mg 4 days a week and 2.5 mg 3 days a week. Dose has been stable for several years. Case discussed with collaborating physician Moustapha Brooks who reviewed the assessment and plan. Chart, medications, labs, vital signs reviewed. Dictation was accomplished with the use of [employer] voice recognition software, prone to medical misidentifications [...] next visit it any questions/concerns arise. 11/05/2024 Other chronic pain (ICD-10 - G89.29) [...] for. #Chronic low back pain. Followed by [facility] pain clinic and is currently getting epidural injections without significant improvement. Had follow up MRI as above. #Constipation. Mild. Discussed bowel regimen. Start miralax once daily. Cut back if loose stools. He did have recent colonoscopy last month. #cellulitis- Resolved #A-fib. Denies any chest pain shortness of breath or palpitations. Rate controlled. Anticoagulated on Coumadin and managed by Coumadin clinic in [place]. Most recent INR yesterday was 2.1. Currently on Coumadin 5 mg 4 days a week and 2.5 mg 3 days a week. Dose has been stable for several years. Case discussed with collaborating physician Moustapha Brooks who reviewed the assessment and plan. Chart, medications, labs, vital signs reviewed. Dictation was accomplished with the use of [employer] voice recognition software, prone to medical misidentifications [...] next visit it any questions/concerns arise. 11/05/2024 Acute cellulitis (ICD-10 - L03.90) #Spinal [...] for. #Chronic low back pain. Followed by [facility] pain clinic and is currently getting epidural injections without significant improvement. Had follow up MRI as above. #Constipation. Mild. Discussed bowel regimen. Start miralax once daily. Cut back if loose stools. He did have recent colonoscopy last month. #cellulitis- Resolved #A-fib. Denies any chest pain shortness of breath or palpitations. Rate controlled. Anticoagulated on Coumadin and managed by Coumadin clinic in [place]. Most recent INR yesterday was 2.1. Currently on Coumadin 5 mg 4 days a week and 2.5 mg 3 days a week. Dose has been stable for several years. Case discussed with collaborating physician Moustapha Brooks who reviewed the assessment and plan. Chart, medications, labs, vital signs reviewed. Dictation was accomplished with the use of [employer] voice recognition software, prone to medical misidentifications [...] next visit it any questions/concerns arise. 11/05/2024 Paroxysmal atrial fibrillation (ICD-10 - I48.0) [...] for. #Chronic low back pain. Followed by [facility] pain clinic and is currently getting epidural injections without significant improvement. Had follow up MRI as above. #Constipation. Mild. Discussed bowel regimen. Start miralax once daily. Cut back if loose stools. He did have recent colonoscopy last month. #cellulitis- Resolved #A-fib. Denies any chest pain shortness of breath or palpitations. Rate controlled. Anticoagulated on Coumadin and managed by Coumadin clinic in [place]. Most recent INR yesterday was 2.1. Currently on Coumadin 5 mg 4 days a week and 2.5 mg 3 days a week. Dose has been stable for several years. Case discussed with collaborating physician Moustapha Brooks who reviewed the assessment and plan. Chart, medications, labs, vital signs reviewed. Dictation was accomplished with the use of [employer] voice recognition software, prone to medical misidentifications [...] next visit it any questions/concerns arise. 11/05/2024 Chronic anticoagulation (ICD-10 - Z79.01) #Spinal [...] for. #Chronic low back pain. Followed by [facility] pain clinic and is currently getting epidural injections without significant improvement. Had follow up MRI as above. #Constipation. Mild. Discussed bowel regimen. Start miralax once daily. Cut back if loose stools. He did have recent colonoscopy last month. #cellulitis- Resolved #A-fib. Denies any chest pain shortness of breath or palpitations. Rate controlled. Anticoagulated on Coumadin and managed by Coumadin clinic in [place]. Most recent INR yesterday was 2.1. Currently on Coumadin 5 mg 4 days a week and 2.5 mg 3 days a week. Dose has been stable for several years. Case discussed with collaborating physician Moustapha Brooks who reviewed the assessment and plan. Chart, medications, labs, vital signs reviewed. Dictation was accomplished with the use of [employer] voice recognition software, prone to medical misidentifications and grammatical errors. This is unintentional and the practitioner does try to identify and correct these, but some could still be present. Please do not hesitate to contact practitioner for clarification. All questions answered to patients satisfaction. Patient verbalized understanding of diagnosis and treatments explained. To call sooner prior to next visit it any questions/concerns arise. PLAN OF TREATMENT Next Appt Details Follow Up: 3 Months, Reason: MM Provider Name:Samanta Thomas, 0 01/12/2025 10:30:00 AM, [address] [facility] [address], [place], [address], Progress Notes * ALAN KAM ADOB:[birth year] (69 yo M)Acc No.[id number]:11/05/2024 Progress Notes Patient:??ALAN KAM A Provider:??Samanta Thomas PA-C :1955?Age:69 Y?Sex:Cris le Date:11/05/2024 Address:[address] [place], [place] [id number] Pcp:MARIBELL BROOKS Subjective: * Chief Complaints: * ?1. Pt here for routine follow up. Pt states he has no concerns.. * HPI: ?Constitutional:? Alan is a 69-year-old male here today in follow-up for wound check. Wound has healed completely and is doing well overall. ?He does have chronic back pain and is getting epidural injections at [facility]. He did have an updated MRI done 2 weeks ago which did show severe foraminal stenosis in the lumbar spine on the left side and moderate on the right. He has an appointment with neurosurgeon Dr. Chin on November 18 to discuss options. They are holding off on any further injections at this time. He may need to do myelogram/nerve conduction studies as well. Denies any change in bowel or bladder habits. Does have minimal constipation. He does have trouble with gait instability and balance being a little worse with chronic back pain and left-sided leg weakness. He does not have a walker and declines one at this time. ?He did also have a colonoscopy 3 weeks ago. His Coumadin was held prior to the procedure and he has resumed. Most recent INR was 2.1 which is managed by Coumadin clinic in [place]. He is currently on Coumadin 5 mg 4 days a week and 2.5 mg 3 days a week. ?Denies any chest pain or shortness of breath. * ROS:?All Other Systems:?Review of Systems (ROS)??All others negative except those mentioned in HPI.? * Medical History:??Essential (primary) hypertension, Hyperlipidemia, unspecified, Unspecified atrial fibrillation, Hypothyroidism (acquired), Gout, unspecified, Diabetes mellitus due to underlying condition without complications. * Surgical History:??gastric l apband and removal , colonoscopy 2016 , right leg lipoma removal benign , cervical fusion , cardioversion for afib , Dr Steward bilateral cataract December 2023, [facility] epidural June 2024. * Family History:??Father: dec eased.??Mother: , diagnosed with Unspecified heart disease.??2 brother(s) - healthy. 2 son(s) - healthy. .?? * Social History:?Tobacco Use:??Tobacco Use/Smoking??Are you a??former smoker.?? * Medications:??Taking predniS ONE 5 MG Tablet 1 tablet Orally Once a day , Taking Vitamin D 50 MCG (2000 UT) Tablet 1 tablet Orally Once a day , Taking Calcium 600 MG Tablet 1 tablet with meals Orally Twice a day , Taking Tylenol Extra Strength 500 MG Tablet 2 tabs Orally daily , Taking dilTIAZem HCl ER 300 MG Tablet Extended Release 24 Hour 1 capsule Orally Once a day , Taking Losartan Potassium 100 MG Tablet 1 tablet Orally Once a day , Taking Furosemide 40 MG Tablet 1 tablet Orally Once a day , Taking Pantoprazole Sodium 40 MG Tablet Delayed Release 1 tablet Orally Once a day , Taking Citalopram Hydrobromide 20 MG Tablet 1 tablet Orally Once a day , Taking Levothyroxine Sodium 100 MCG Tablet 1 tablet in the morning on an empty stomach Orally Once a day , Taking metFORMIN HCl 500 MG Tablet 1 tablet with a meal Orally Once a day , Taking Pravastatin Sodium 40 MG Tablet 1 tablet Orally Once a day , Taking Abiraterone Acetate 500 MG Tablet one tablet Oral once daily , Taking Nitroglycerin 0.[address] 1 TABLET BY MOUTH UNDER TONGUE As needed, Taking traMADol HCl 50 MG Tablet 1 tablet as needed dose increase on 04/01/24 Orally twice a day , Taking Warfarin Sodium 5 MG Tablet 1 tablet Orally Once a day , Notes to Pharmacist: Sat, Sun, Tudemetrio, Thurs at 5mg, Taking tiZANidine HCl 2 MG Tablet 1 tablet at bedtime Orally once daily As needed, Notes to Pharmacist: as needed, Discontinued Cephalexin 500 MG Capsule Oral , Medication List reviewed and reconciled with the patient * Allergies:??N.K.D.A. Objective: * Vitals:??HR:100/min, BP:132/ 86mm Hg, Wt:272lbs, BMI:40.16Index, Ht: 69 in, Oxygen sat %:97%. * Physical Examination:?General: Age appropriate, 69-year-old male in no acute distress, speaking in full sentences without visible respiratory distress. Well groomed, well developed. Alert, interactive. ?Skin: Warm, dry and intact. Left lu wound healed, small scab to anterior lu. no erythema/drainage or tenderness. ?Chronic skin changes to bilateral LE ?HEENT: Normocephalic/atraumatic. ?CV: RRR. ?Lungs: Clear to auscultation bilaterally, no wheezes, rales or rhonchi. Equal chest rise and fall bilaterally. ?Neuro: CN II-XII grossly intact. Steady gait with non-assisted ambulation observed. ?Psych: Stable mood and affect. Assessment: * Assessment: 1.??Spinal stenosis of lumba r region with neurogenic claudication - M48.062 (Primary)??2.??Low back pain, unspecified - M54.50??3.??Other chronic pain - G89.29??4.??Acute cellulitis - L03.90??5.??Paroxysmal atrial fibrillation - I48.0??6.??Chronic anticoagulation - Z79.01?? 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 #Chronic low back pain. Followed by [facility] pain clinic and is currently getting epidural injections without significant improvement. Had follow up MRI as above. #Constipation. Mild. Discussed bowel regimen. Start miralax once daily. Cut back if loose stools. He did have recent colonoscopy last month. #cellulitis- Resolved #A-fib. Denies any chest pain shortness of breath or palpitations. Rate controlled. Anticoagulated on Coumadin and managed by Coumadin clinic in [place]. Most recent INR yesterday was 2.1. Currently on Coumadin 5 mg 4 days a week and 2.5 mg 3 days a week. Dose has been stable for several years. Case discussed with collaborating physician Moustapha Brooks who reviewed the assessment and plan. Chart, medications, labs, vital signs reviewed. Dictation was accomplished with the use of [employer] voice recognition software, prone to medical misidentifications and grammatical errors. This is unintentional and the practitioner does try to identify and correct these, but some could still be present. Please do not hesitate to contact practitioner for clarification. All questions answered to patients satisfaction. Patient verbalized understanding of diagnosis and treatments explained. To call sooner prior to next visit it any questions/concerns arise. Plan: * Treatment: * Follow Up:??3 Months (Reason : MM) * Images: Billing Information: * Visit Code:?? 61398 Office Visit, Est Pt., Level 4. * Procedure Codes:?? Care Plan Details* * Sign off status: Completed true * Provider:??Samanta Thomas PA-C Date:??04/2024 History and Physical Notes * HPI (History of Present Illness) Category Sub-Category Detail Notes Category Not es Constitutional Alan is a 69-year-old male here today in follow-up for wound check. Wound has healed completely and is doing well overall. He does have chronic back pain and is getting epidural injections at [facility]. He did have an updated MRI done 2 weeks ago which did show severe foraminal stenosis in the lumbar spine on the left side and moderate on the right. He has an appointment with neurosurgeon Dr. Chin on November 18 to discuss options. They are holding off on any further injections at this time. He may need to do myelogram/nerve conduction studies as well. Denies any change in bowel or bladder habits. Does have minimal constipation. He does have trouble with gait instability and balance being a little worse with chronic back pain and left-sided leg weakness. He does not have a walker and declines one at this time. He did also have a colonoscopy 3 weeks ago. His Coumadin was held prior to the procedure and he has resumed. Most recent INR was 2.1 which is managed by Coumadin clinic in [place]. He is currently on Coumadin 5 mg 4 days a week and 2.5 mg 3 days a week. Denies any chest pain or shortness of breath. Physical Examination Category Sub-Category Detail Notes Section Note s General: Age appropriate, 69-year-old male in no acute distress, speaking in full sentences without visible respiratory distress. Well groomed, well developed. Alert, interactive. Skin: Warm, dry and intact. Left lu wound healed, small scab to anterior lu. no erythema/drainage or tenderness. Chronic skin changes to bilateral LE HEENT: Normocephalic/atraumatic. CV: RRR. Lungs: Clear to auscultation bilaterally, no wheezes, rales or rhonchi. Equal chest rise and fall bilaterally. Neuro: CN II-XII grossly intact. Steady gait with non-assisted ambulation observed. Psych: Stable mood and affect.
--- OUTSIDE RECORDS SUMMARY | 2024-11-30 13:47 | XMS_ITS ---
Author Organization [facility] Address [address] [place] [address] Care Team Providers Care Special Education Professional Name Role Phone BURKMARIBELL Primary Care Provider Martha Samanta Unavailable [phone] REASON FOR VISIT Handicap Placard Encounters Encounter Location Date Provider Diagnosis [address] [place] [address] 11/06/2024 Samanta Thomas PLAN OF TREATMENT Next Appt Details Provider Name:Samanta Thomas, 0 01/12/2025 10:30:00 AM, [address], [place], [address], Progress Notes * JOSE MANUEL KAM ADOB:[birth year] (69 yo M)Acc No.[id number]:11/06/2024 Patient:??JOSE MANUEL KAM :1955?Age:69 Y?Sex:Cris castro Address:[address] [place] [address] * true * Date:??
--- OUTSIDE RECORDS SUMMARY | 2024-11-30 13:47 | XMS_ITS ---
Author Organization [facility] Address [address] [place] [address] Care Team Providers Care Director Food Safety Name Role Phone MARIBELL BURK Primary Care Provider [phone] REASON FOR VISIT CCM Encounters Encounter Location Date Provider Diagnosis [address] [place] [address] 11/13/2024 MARIBELL BURK PLAN OF TREATMENT Next Appt Details Provider Name:Samanta Thomas, 0 01/12/2025 10:30:00 AM, [address], [address], [place], [address], Progress Notes * JOSE MANUEL KAM ADOB:[birth year] (69 yo M)Acc No.[id number]:11/13/2024 Patient:??JOSE MANUEL KAM :1955?Age:69 Y?Sex:Cris castro Address:[address] [place] [id number] * true * Date:??
--- OUTSIDE RECORDS SUMMARY | 2024-11-30 13:47 | XMS_ITS | Continuity of Care Document ---
Author Organization [facility] [address] [place] [address]- Support Name Relationship Address Phone LEPPER, JOSE MANUEL Personal Relationship Unknown Unav ailable LEPPER, JOSE MANUEL Personal Relationship Unknown Unav ailable LEPPER, JOSE MANUEL Personal Relationship Unknown Unav ailable LEPPER, JOE Personal Relationship Unknown Un available LEPPER, JOSE MANUEL Personal Relationship Unknown Unav ailable LEPPER, JOE Personal Relationship Unknown Un available LEPPER, JOE Personal Relationship Unknown Un available LEPPER, JOE spouse Unknown Unavailable LEPPER, JOSE MANUEL Personal Relationship Unknown Unav ailable LEPPER, JOE Personal Relationship Unknown Un available LEPPER, JOSE MANUEL Personal Relationship Unknown Unav ailable LEPPER, JOE Personal Relationship Unknown Un available LEPPER, JOE Personal Relationship Unknown Un available LEPPER, JOE Personal Relationship Unknown Un available LEPPER, JOE Personal Relationship Unknown Un available LEPPER, JOE Personal Relationship Unknown Un available LEPPER, JOSE MANUEL Personal Relationship Unknown Unav ailable LEPPER, JOE Personal Relationship Unknown Un available Care Team Providers Care Corporate Claims Examiner Name Role Phone Todd ALCANTARA, Kirstin Melendez Primary Care Physician [place] [facility] [place](s): 11/18/24 - 11/25/24 [facility] [address] [place] [address] Drive [address] [place], [place] [address] Attending Physician: Jeffry Chin MD Referring Physician: Ancelmo Gonzalez MD Encounter Type: Office Visit Allergies, Adverse Reactions, Alerts Substance Criticality Severity Reaction Reaction Severity Status Animal Dander NASAL CONGESTION/SNEEZING Active Medications abiraterone 500 mg oral tablet 0 Refills, Maintenance, 05/18/24 3:32:00 PM EDT, Partial fill upon patient request if the prescription is for a schedule II opioid drug. Start Date: 05/18/24 Status: Ordered Repeat number: 1 abiraterone 500 mg oral tablet 0 Refills, Maintenance, 06/19/23 11:19:00 AM EDT, Partial fill upon patient request if the prescription is for a schedule II opioid drug. Start Date: 06/19/23 Status: Ordered Repeat number: 1 Celexa 20 mg oral tablet 2 tablet = 40 mg, By Mouth, Daily, # 30 tablet, 0 Refills, Maintenance, 03/10/14 3:12:51 PM EDT, Tablet Start Date: 03/10/14 Status: Ordered Quantity: 30.0 Unit: tablet Repeat number: 1 colchicine 0.6 mg oral tablet 1.2 mg, 2, tablet, By Mouth, Once, at first sign of gout flare followed by 1 tablet in 1 hour, # 10tablet, Refills 0, Maintenance, 02/19/18 7:05:43 PM EDT Start Date: 02/19/18 Status: Ordered Quantity: 10.0 Unit: tablet Repeat number: 1 diazepam 5 mg oral tablet See Instructions, 1 tab PO 1 hr. prior to procedure. May repeat x 1 on arrival to [facility] if needed forprocedural anxiety, # 2 tablet, Refills 0, Tot. Refills 0, Maintenance, 06/15/24 1:21:00 PM EDT, Instructions Replace Required Details, Route to Pharmacy Electronically, [facility]/pharmacy #[id number], Partial fill upon patient request., 06/15/24, 176, cm, 06/15/24 8:40:00 EDT, Height Start Date: 06/15/24 Status: Ordered Quantity: 2.0 Unit: tablet Repeat number: 1 diltiazem 300 mg/24 hours oral capsule, extended release 300 mg, 1, capsule, By Mouth, Daily, # 30 capsule, Refills 0, Maintenance, 01/15/23 3:23:00 PM EST, Partial fill upon patient request if the prescription is for a schedule II opioid drug. Start Date: 01/15/23 Status: Ordered Quantity: 30.0 Unit: capsule Repeat number: 1 furosemide 40 mg oral tablet 40 mg, 1, tablet, By Mouth, Daily, # 30 tablet, Refills 0, Maintenance, 04/18/23 9:40:00 AM EDT, Partial fill upon patient request if the prescription is for a schedule II opioid drug. Start Date: 04/18/23 Status: Ordered Quantity: 30.0 Unit: tablet Repeat number: 1 Jantoven 2.5 mg oral tablet 1 tablet = 2.5 mg, By Mouth, Daily, using three times a week, # 30 tablet, 0 Refills, Maintenance, 01/15/23 3:25:00 PM EST, Tablet, Partial fill upon patient request if the prescription is for a schedule II opioid drug. Start Date: 01/15/23 Status: Ordered Quantity: 30.0 Unit: tablet Repeat number: 1 Jantoven 5 mg oral tablet 1 tablet = 5 mg, By Mouth, Daily, using four times a week, # 30 tablet, 0 Refills, Maintenance, 01/15/23 3:25:00 PM EST, Tablet, Partial fill upon patient request if the prescription is for a scheduleII opioid drug. Start Date: 01/15/23 Status: Ordered Quantity: 30.0 Unit: tablet Repeat number: 1 losartan 100 mg oral tablet 1 tablet = 100 mg, By Mouth, Daily at bedtime, 0 Refills, Maintenance, 09/20/14 9:28:26 AM EDT Start Date: 09/20/14 Status: Ordered Repeat number: 1 Metformin = 500 mg, By Mouth, Daily at supper, 0 Refills, Maintenance, 09/20/14 9:31:36 AM EDT Start Date: 09/20/14 Status: Ordered Repeat number: 1 Pantoprazole Tablet = 40 mg, Daily, up to 2 tabs, 0 Refills, Maintenance, 03/09/14 5:20:45 AM EDT Start Date: 03/09/14 Status: Ordered Repeat number: 1 Pravastatin = 20 mg, By Mouth, Daily at bedtime, 0 Refills, Maintenance, 04/09/11 12:27:40 AM EDT Start Date: 04/09/11 Status: Ordered Repeat number: 1 predniSONE 5 mg oral tablet 0 Refills, Maintenance, 05/18/24 3:32:00 PM EDT, Partial fill upon patient request if the prescription is for a schedule II opioid drug. Start Date: 05/18/24 Status: Ordered Repeat number: 1 Synthroid 100 mcg, Daily, Maintenance, 04/09/11 12:27:54 AM EDT Start Date: 04/09/11 Status: Ordered Repeat number: 1 tiZANidine 2 mg oral tablet TAKE 1 TABLET AT BEDTIME ORALLY ONCE DAILY 30 DAYS Start Date: 04/18/23 Status: Ordered Repeat number: 1 Tramadol By Mouth, 0 Refills, Maintenance, 01/30/22 9:02:00 AM EST, Partial fill upon patient request if the prescription is for a schedule II opioid drug. Start Date: 01/30/22 Status: Ordered Repeat number: 1 Tylenol Extra Strength By Mouth, Every 6 hours, 0 Refills, Maintenance, 10/31/22 3:34:00 PM EST, Partial fill upon patientrequest if the prescription is for a schedule II opioid drug. Start Date: 10/31/22 Status: Ordered Repeat number: 1 Problem List Condition Confirmation Course Effective Dates Status H ealth Status Informant Afib Confirmed Active COPD (chronic obstructive pulmonary disease) Confirmed Active Chronic pain Confirmed Active Marijuana use, current ongoing Confirmed Active GERD (gastroesophageal reflux disease) Confirmed Active Gout Confirmed Active Hyperlipidemia Confirmed Active Hypertension Confirmed Active Hypothyroid Confirmed Active Morbid obesity, actual BMI 46 as of 02/19/2018 Confirmed Active ENE on CPAP Confirmed Active DM (diabetes mellitus), secondary Confirmed Active Severe obesity (BMI 35.0-39.9) with comorbidity Confirmed Active Vertigo Confirmed Active Vital Signs Most recent to oldest [Reference Range]: 1 Height 176 cm (11/18/24 9:45 AM) Weight 123 kg (11/18/24 9:45 AM) Body Mass Index [18.5-24.99 kg/m2] 39.71 kg/m2 *>HHI* (11/18/24 9:45 AM) Social History Social History Type Response Smoking Status Never (less than 100 in lifetime) entered on: 06/15/24 Sex Sex Representation Male (finding) Patient Care team information Care Team Personnel Name: Radha Antony RN Position: [facility] RN Member Role: Primary Care Nurse Name: Kaylin Rashid Position: [facility] Outreach Member Role: Lifetime Consulting Physician Name: Kirstin Brooks MD Position: [facility] Physician - Primary Care Member Role: PCP Address: [address] [place] [address], [address] Primary Care and Weight Management [place], [place] [address] Telecom: Name: Kathya Patel RN Position: [facility] RN Member Role: Primary Care Nurse Name: Yu Lynn Position: [facility] [place] Member Role: Primary Care Nurse Care Team Related Persons Name: JOE KAM Insurance Providers Guarantor name: JOSE MANUEL KAM [employer] Plan Information #: 2 Payer: MEDEX Member Number: [id number] Policy Number: NA Group Number: NA Health Plan Information #: 1 Payer: MEDICARE PART B OUTPT Member Number: [id number] Policy Number: NA Group Number: NA
[2024-11-30 13:51] LABS: Prothrombin Time Whole Bld POC 33.9 sec (11.1-13.5); ~PT, ~INR - Anti Coag Clinic 2.8 (0.9-1.1)
--- NOTE | 2024-11-30 13:54 | MHC.OFFVISCO ---
Intake Intake Visit Reasons: Anticoagulation Allergies No Known Allergies Allergy (Verified 11/30/24 13:45) Medication List - Last Reconciled 11/30/24 by Donna Archer, RN abiraterone 1,000 mg PO DAILY [CALCIUM PO] cholecalciferol (vitamin D3) (Vitamin D3) PO citalopram 20 mg PO DAILY cyclobenzaprine 5 mg PO BEDTIME PRN diltiazem HCl CD 300 mg PO DAILY furosemide 40 mg PO DAILY leuprolide (Lupron Depot) intramuscularly every 3 months; levothyroxine 100 mcg PO DAILY losartan 100 mg PO DAILY metformin mg PO nitroglycerin 0.4 mg sublingual pantoprazole 40 mg PO DAILY pravastatin mg PO prednisone 5 mg PO DAILY tizanidine 2 mg PO BEDTIME tramadol 50 mg PO BID PRN warfarin (Jantoven) 5 mg See Protocol PO DAILY Nursing Note INR: 2.8 in therapeutic range of 2-3 Medications and supplements reviewed No changes in health, diet, medications, or supplements, Denies any signs and symptoms of bleeding or bruising or clotting. Bleeding, bruising, clotting discussed Nutritional guidance given Dose: 5mg X 4 days and 2.5mg X 3 days (Mon, Wed & Fri) F/U INR: 4 weeks Patient verbalizes understanding of instructions given Coding Level of Care Code Est Patient Level 1 Diagnoses Current use of anticoagulant therapy Z79.01 Assessment & Plan Assessment & Plan (1) Current use of anticoagulant therapy: Code(s): Z79.01 - alf (current) use of anticoagulants Category: Medical
== END 2024-11-30 13:55 | disposition home or self-care (01) ==
LOC: HO.ACS 13:44
PROVIDERS: PCP Internal Medicine; Visit Provider Internal Medicine
DX: Z79.01 Long term (current) use of anticoagulants (principal)

== ENCOUNTER → 2024-11-30 13:44 | Outpatient (BNVA) | payer MEDICARE, SELFPAY | PROVIDERS: PCP Internal Medicine; Visit Provider Internal Medicine | DX: I48.92 Unspecified atrial flutter (principal); Z79.01 Long term (current) use of anticoagulants; Z51.81 Encounter for therapeutic drug level monitoring | CPT/HCPCS: 85610; 99211 ==

== ENCOUNTER 2024-12-29 14:21 | Outpatient (AMB) | payer MEDICARE, SELFPAY ==
--- NOTE | 2024-12-29 14:43 | MHC.OFFVISCO ---
Intake Intake Visit Reasons: Anticoagulation Allergies No Known Allergies Allergy (Verified 12/29/24 14:23) Medication List - Last Reconciled 12/29/24 by Ivana Ritchie RN abiraterone 1,000 mg PO DAILY [CALCIUM PO] cholecalciferol (vitamin D3) (Vitamin D3) PO citalopram 20 mg PO DAILY cyclobenzaprine 5 mg PO BEDTIME PRN diltiazem HCl CD 300 mg PO DAILY furosemide 40 mg PO DAILY leuprolide (Lupron Depot) intramuscularly every 3 months; levothyroxine 100 mcg PO DAILY losartan 100 mg PO DAILY metformin mg PO nitroglycerin 0.4 mg sublingual pantoprazole 40 mg PO DAILY pravastatin mg PO prednisone 5 mg PO DAILY tizanidine 2 mg PO BEDTIME tramadol 50 mg PO BID PRN warfarin (Jantoven) 5 mg See Protocol PO DAILY Nursing Note INR: 2.1 in therapeutic range Medications and supplements reviewed No changes in health, diet, medications, or supplements, Denies any signs and symptoms of bleeding or bruising or clotting. Bleeding, bruising, clotting discussed Nutritional guidance given Dose: 2.5mg mwf/ 5mg x 4 days F/U INR: 1 month or prn Patient verbalizes understanding of instructions given Questionnaires HAS-BLED Does the patient had uncontrolled Hypertension?: No Does the patient have renal disease?: No Does the patient have liver disease?: No Does the patient have a history of stroke?: No Has the patient had major bleeding or predisposition to bleeding?: No Does the patient have labile INRs?: No Is the patient over 65 years of age?: Yes Is the patient on medications that gives them a predisposition to bleeding?: Yes Does the patient use alcohol?: Yes HAS-BLED Score: 3 CHADSVASC Age: 66-74 Gender: Male Does the patient have a history of CHF?: No Does the patient have a history of Hypertension?: Yes Does the patient have a history of Stroke/TIA/Thromboembolism?: No Does the patient have a history of Vascular Disease (prior GA, PAD or aortic plaque)?: No Does the patient have a history of Diabetes?: Yes CHADS VACS Score: 3 Milton Prediction Score Rsk VTE Active Cancer: No Previous VTE, excluding superficial vein thrombosis: No Reduced mobility: No Already known Thrombophilic Condition: No With-in last month Trauma and/or Surgery: No Elderly 70 year or older: No Heart and/or Respiratory Failure: No Acute Myocardial infarction and/or Ischemic Stroke: No Acute Infection and/or Rheumatologic Disorder: No Obesity (BMI 30 or greater): Yes Ongoing Hormonal Treatment: No Score: 1 Milton Score less than 4; Low Risk of VTE Milton Score 4 or greater; High Risk of VTE Coding Level of Care Code Est Patient Level 1 Diagnoses Current use of anticoagulant therapy Z79.01 Results AMB INR Fingerstick AMB INR Fingerstick 2.1 Last Edit by Ivana Ritchie RN on 12/29/24 14:32 manual entry Assessment & Plan Assessment & Plan (1) Current use of anticoagulant therapy: Code(s): Z79.01 - medical terminologist (current) use of anticoagulants Category: Medical
--- OUTSIDE RECORDS SUMMARY | 2024-12-29 15:17 | XMS_ITS | Continuity of Care Document ---
Author Organization [facility] er Address [address] [place] [address] [facility] Name Relationship Address Phone KIANNAPER, JOSE MANUEL Personal Relationship Unknown Unav ailable [...] Unknown Un available Care Team Providers Care Heel Seat Trimmer Name Role Phone Todd ALCANTARA, Kirstin Melendez Primary Care Physician [phone] En[place] [facility] [place] 11/18/24 - 12/18/24 [facility] [address] [place] [address] Attending Physician: Alicia Hancock Admitting Physician: Alicia Hancock Referring Physician: Alicia Hancock Encounter Type: Triage Allergies, Adverse Reactions, Alerts Substance Criticality Severity [...] repeat x 1 on arrival to [facility] if needed forprocedural anxiety, # 2 tablet, Refills 0, Tot. Refills 0, Maintenance, 06/15/24 1:21:00 PM EDT, Instructions Replace Required Details, Route to Pharmacy Electronically, [facility]/pharmacy #[id number], Partial fill upon patient request., 06/15/24, 176, [...] with comorbidity Confirmed Active Vertigo Confirmed Active Social History Social History Type Response Smoking Status Never (less than 100 in lifetime) entered on: 06/15/24 Sex Sex Representation Male (finding) Patient Care team information Care Team Personnel Name: Radha Antony RN Position: [facility] RN Member Role: Primary Care Nurse Name: Kaylin Rashid Position: [facility] Outreach Member Role: Lifetime Consulting Physician Name: Kirstin Brooks MD Position: [facility] Physician - Primary Care Member Role: PCP Address: [address] [place] [address], [address] Primary Care and Weight Management [address] Telecom: Name: Kathya Patel RN Position: [facility] RN Member Role: Primary Care Nurse Name: Yu Lynn Position: [facility] [place] Member Role: Primary Care Nurse Care Team Related Persons Name: JOE KAM Insurance Providers Guarantor name: JOSE MANUEL KAM Health Plan Information #: 1 Payer: MEDICARE PART B OUTPT Member Number: NA Policy Number: NA Group Number: NA Health Plan Information #: 2 Payer: MEDEX Member Number: NA Policy Number: NA Group Number: NA
--- OUTSIDE RECORDS SUMMARY | 2024-12-29 15:17 | XMS_ITS | Continuity of Care Document ---
Author Organization [facility] [address] [place] [address]- Support Name Relationship Address Phone LEPPER, JOSE [...] Unknown Un available Care Team Providers Care Computator Name Role Phone Todd ALCANTARA, Kirstin Melendez Primary Care Physician [phone] Encounter [facility] [place] [place] Date(s): 11/18/24 - 12/18/[address] [place], [place] [email or web address] Attending Physician: Alicia Hanccok Admitting Physician: Alicia Hancock Referring Physician: Alicia [...] May repeat x 1 on arrival to [facility] if needed forprocedural anxiety, # 2 tablet, Refills 0, Tot. Refills 0, Maintenance, 06/15/24 1:21:00 PM EDT, Instructions Replace Required Details, Route to Pharmacy Electronically, [facility]/pharmacy #[id number], Partial fill upon patient request., 06/15/24, 176, [...] Team Personnel Name: Radha Antony RN Position: [facility] RN Member Role: Primary Care Nurse Name: Kaylin Rashid Position: [facility] Outreach Member Role: Lifetime Consulting Physician Name: Kirstin Brooks MD Position: [facility] Physician - Primary Care Member Role: PCP Address: [address] [place] [address], [address] Primary Care and Weight Management [address] Telecom: Name: Kathya Patel RN Position: [facility] RN Member Role: Primary Care Nurse Name: Yu Lynn Position: [facility] [place] Member Role: Primary Care Nurse Care Team Related Persons Name: JOE KAM Insurance Providers Guarantor name: JOSE MANUEL EDDY Health Plan Information #: 1 Payer: MEDICARE PART B OUTPT Member Number: NA Policy Number: NA Group Number: NA Health Plan Information #: 2 Payer: MEDEX Member Number: NA Policy Number: NA Group Number: NA
--- OUTSIDE RECORDS SUMMARY | 2024-12-29 15:17 | XMS_ITS ---
Author Organization [facility] Address [address] [place] [address] Care Team Providers Care Machine Deburrer Name Role Phone BURKMARIBELL Primary Care Provider [phone] Samanta Thomas [phone] REASON FOR VISIT Neurologist Encounters Encounter Location Date Provider Diagnosis [address] [place] [address] 12/14/2024 Samanta Thomas PLAN OF TREATMENT Next Appt Details Provider Name:Samanta Thomas, 0 01/12/2025 10:30:00 AM, [address], [place], [address], Progress Notes * JOSE MANUEL KAM ADOB:[birth year] (69 yo M)Acc No.[id number]:12/14/2024 Patient:??JOSE MANUEL KAM :1955?Age:69 Y?Sex:Cris castro Address:[address] [place] [id number] * true * Date:??
--- OUTSIDE RECORDS SUMMARY | 2024-12-29 15:17 | XMS_ITS | Clinical Summary ---
Author Organization [facility] Address [address] [place] [address] Care Team Providers Care Dinkey Motor Operator Name Role Phone Kirstin Brooks MD Primary Care Provider [phone] Allergies Active Allergy Reactions Criticality Noted Date Comments Animal Dander 01/05/2016 Medications Medication Sig Dispensed Refills Start Date End Date Status ADVAIR DISKUS 250-50 MCG/DOSE DISKUS Inhale into the lungs every 12 (twelve) hours. 0 12/21/2015 Active SPIRIVA HANDIHALER [address] into inhaler and inhale daily. 0 12/26/2015 Active metFORMIN (GLUCOPHAGE) tablet 500 mg Take 500 mg by mouth daily. With dinner 0 11/20/2015 Active warfarin (COUMADIN) 5 MG tablet 0 11/20/2015 Active citalopram (CELEXA) 40 MG tablet Take 40 mg by mouth daily. 0 11/20/2015 Active pravastatin (PRAVACHOL) tablet 20 mg Take 20 mg by mouth every night at bedtime. 0 11/07/2015 Active digoxin (LANOXIN) 250 MCG tablet Take 250 mcg by mouth every night at bedtime. 0 11/07/2015 Active losartan (COZAAR) 100 MG tablet Take 25 mg by mouth every night at bedtime. 0 10/17/2015 Active levothyroxine (SYNTHROID, LEVOXYL) tablet 100 mcg Take 100 mcg by mouth daily. 0 10/17/2015 Active diltiazem (CARDIZEM CD) 120 MG 24 hr capsule Take 120 mg by mouth every night at bedtime. 0 Active pantoprazole (PROTONIX) 40 MG tablet Take 40 mg by mouth every morning on an empty stomach. 0 Active senna-docusate (PERICOLACE) 8.6-50 MG Take 1 tablet by mouth 2 (two) times a day as needed for constipation. 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/14/2016 COPD (chronic obstructive pulmonary disease) Arthritis 01/26/2016 Osteoarthritis (arthritis due to wear and tear o f joints) 01/26/2016 Chronic atrial fibrillation 01/26/2016 HLD (hyperlipidemia) 01/26/2016 ENE on CPAP 01/26/2016 DM2 (diabetes mellitus, type 2) 01/26/2016 Obesity, Class III, BMI 40-49.9 (morbid obesity) 01/26/2016 Ex-smoker 01/26/2016 Mass of right thigh 01/05/2016 Pain of right thigh 01/05/2016 Family History Medical History Relation Name Comments Lung disease Brother Heart disease Mother Stroke Mother Thyroid disease Mother Relation Name Status Comments Brother Mother Social History Tobacco Use Types Packs/Day Years Used Date Smoking Tobacco: Former Cigarettes 1 37 Alcohol Use Standard Drinks/Week Comments Yes 2 (1 standard drink = 0.6 oz pur e alcohol) Sex and Gender Information Value Date Recorded Sex Assigned at Male 05/13/2023 2:14 PM EDT Gender Identity Not on file Sexual Orientation Not on file Last Filed Vital Signs Vital Sign Reading Time Taken Comments Blood Pressure 127/73 03/25/2018 1:29 PM EDT Pulse 54 03/25/2018 1:29 PM EDT Temperature 36.7 ??C (98.1 ??F) 03/25/2018 1:29 PM ED T Respiratory Rate 19 01/27/2016 10:45 AM EST Oxygen Saturation 95% 01/27/2016 11:06 AM EST Inhaled Oxygen Concentration - - Weight 139.7 kg (308 lb) 03/25/2018 1:29 PM EDT Height 175.3 cm (5' 9 ) 05/24/2016 10:58 AM EDT Body Mass Index 45.48 05/24/2016 10:58 AM EDT Plan of Treatment Health Maintenance Due Date Last Done Comments Hepatitis C Screening 1955 COVID-19 Vaccine (#1) 03/12/1956 Pneumococcal Vaccine (1 of 2 - PCV) 1961 Depression Screening 1967 Preventative Health Evaluation 1973 DTap / Tdap / Td (1 - Tdap) 1974 Colon Cancer Screening (Colonoscopy) 2000 Shingrix-Zoster Vaccine (1 of 2) 2005 RSV Adult > 60+ Yrs or Pregn ant (1 - Risk 60-74 years 1-dose series) 2015 Fall Risk Assessment 2020 Influenza Vaccine (#1) 2024 Hepatitis B Vaccines Aged Out No long er eligible based on patient's age to complete this topic RSV Ped < 20 months Aged Out No longe r eligible based on patient's age to complete this topic Care Teams Dinkey Motor Operator Relationship Specialty Start Date End Date Kirstin Brooks MD [address] [place] [address] PCP - General Internal Medicine 03/11/19 KIM LANDAVERDE Referring Physician Orthopedic Surgery 12/26/15
--- OUTSIDE RECORDS SUMMARY | 2024-12-29 15:17 | XMS_ITS ---
Author Organization [facility] Address [address] [place] [id number] Care Team Providers Care Collaborative Physician Name Role Phone MARIBELL BURK Primary Care Provider Samanta Thomas Unavailable [phone] ALLERGIES No Known Allergies REASON FOR VISIT Pt here for an appt to see if he can get a referral to [facility] behavior services and nuerology. MEDICATIONS Medication SIG (Take, Route, Frequency, Duration) Notes Start Date End Date Status Warfarin Sodium 5 mg TAKE 1 TABLET DAILY Active Furosemide 40 mg TAKE 1 TABLET DAILY Active Citalopram Hydrobromide 20 mg TAKE 1 TABLET DAILY orally once a day for 90 days Active Pravastatin Sodium 40 mg TAKE 1 TABLET D AILY orally once a day for 90 days Active predniSONE 5 MG 1 tablet Orally Once a day Active Losartan Potassium 100 mg TAKE 1 TABLET DAILY Active tiZANidine HCl 2 MG 1 tablet at bedtime Orally once daily for 30 days as needed Active traMADol HCl 50 MG 1 tablet as needed dose increase on 04/01/24 Orally twice a day for 30 days 04/14/2024 Active metFORMIN HCl 500 mg TAKE 1 TABLET DAILY WITH A MEAL Active Levothyroxine Sodium 100 MCG TAKE 1 TABLET DAILY IN THE MORNING ON AN EMPTY STOMACH Active Abiraterone Acetate 500 MG one tablet Or al once daily for 30 days Active Pantoprazole Sodium 40 MG 1 tablet Orall y Once a day for 90 days Active Nitroglycerin 0.[address] 1 TABLET BY MOUTH UNDER TONGUE for 30 days Active dilTIAZem HCl ER 300 MG 1 capsule Orally Once a day Active Tylenol Extra Strength 500 MG 2 tabs Orally daily Active Calcium 600 MG 1 tablet with meals Orally Twice a day Active Vitamin D 50 MCG (1999) 1 tablet Oral ly Once a day Active SOCIAL HISTORY Tobacco Use: Social History Observation Description Date Details (start date - stop date) Former Smoker NA - NA Sex Assigned At : Social History Observation Description Sex Assigned At Unknown Tobacco Use/Smoking Question Answer Notes Are you a former smoker PROBLEMS Problem Type ICD Code Onset Dates Problem Status W/U Status Risk SNOMED Code Notes Problem Memory changes (R41.3) Active confirmed 912239141 VITAL SIGNS Heart Rate 87 /min 12/28/2024 Blood pressure systolic 140 mm Hg 12/28/19 25 Blood pressure diastolic 76 mm Hg 025 Weight 279 lbs 12/28/2024 BMI 41.2 kg/m2 12/28/2024 Height 69 in 12/28/2024 Oximetry 98 % 12/28/2024 Encounters Encounter Location Date Provider Diagnosis [address] [facility] [address] [place] [address] 12/28/2024 Samanta Thomas Memory changes R41.3 ; Compulsive buying F42.8 and Vitamin D deficiency E55.9 ASSESSMENTS Encounter Date Diagnosis Assessment Notes Treatment Notes Treatment Clinical Notes Section Notes 12/28/2024 Memory changes (ICD-10 - R41.3) 12/28/2024 Compulsive buying (ICD-10 - F42.8) 12/28/2024 Vitamin D deficiency (ICD-10 - E55.9) PLAN OF TREATMENT Pending Test Test Name Order Date 1,25OH VITAMIN D 12/28/2024 CBC 12/28/2024 Comprehensive Metabolic Panel 12/28/2024 VITAMIN B12 12/28/2024 TSH 12/28/2024 RPR, Rfx Qn RPR/Confirm [id number] 2024 Next Appt Details Provider Name:Samanta Thomas, 0 01/12/2025 10:30:00 AM, [address], [place], [address], Progress Notes * ALAN KAM ADOB:[birth year] (69 yo M)Acc No.[id number]:12/28/2024 Progress Notes Patient:??ALAN KAM Provider:??Samanta Thomas PA-C :1955?Age:69 Y?Sex:Ma le Date:12/28/2024 Address:[address] [facility], [place], [id number] Pcp:MARIBELL BURK Subjective: * Chief Complaints: * ?1. Pt here for an appt to see if he can get a referral to [facility] behavior services and nuerology.. * HPI: ?Constitutional:? Alan is a 69 yo male here today with concerns of memory issues. He is interested in seeing a neurologist. ?Has had some experience not knowing where he was. Mostly word finding. ?Son in [place]. ? has taken over everything financially ?father- dementia ?alcohol - occasional ?No rec drug use. ?Mood down a bit- money issues. ?occ gabling, nothing consistent. * ROS:?All Other Systems:?Review of Systems (ROS)??All [...] day , Taking Vitamin D 50 MCG (1999 [place]) Tablet 1 tablet Orally Once a day , Taking Calcium 600 MG Tablet 1 tablet with meals Orally Twice a day , Taking Tylenol Extra Strength 500 MG Tablet 2 tabs Orally daily , Taking dilTIAZem HCl ER 300 MG Tablet Extended Release 24 Hour 1 capsule Orally Once a day , Taking Pantoprazole [...] 04/01/24 Orally twice a day , Taking tiZANidine HCl 2 MG Tablet 1 tablet at bedtime Orally once daily As needed, Notes to Pharmacist: as needed, Taking Levothyroxine Sodium 100 MCG Tablet TAKE 1 TABLET DAILY IN THE MORNING ON AN EMPTY STOMACH , Taking metFORMIN HCl 500 mg Tablet TAKE 1 TABLET DAILY WITH A MEAL , Taking Losartan Potassium 100 mg Tablet TAKE 1 TABLET DAILY , Taking Furosemide 40 mg Tablet TAKE 1 TABLET DAILY , Taking Pravastatin Sodium 40 mg Tablet TAKE 1 TABLET DAILY orally once a day , Taking Citalopram Hydrobromide 20 mg Tablet TAKE 1 TABLET DAILY orally once a day , Taking Warfarin Sodium 5 mg Tablet TAKE 1 TABLET DAILY , Medication List reviewed and reconciled with the patient * Allergies:??N.K.D.A. Objective: * Vitals:??HR:87/min, BP:140/7 6mm Hg, Wt:279lbs, BMI:41.2Index, Ht: 69 in, Oxygen sat %:98%. * Physical Examination:?General: Well appearing, well nourished, age appropriate in no acute distress. Speaking in full, clear sentences. ?SKIN: Warm, dry intact. No rashes/lesions. ?HEENT: Normocephalic atraumatic. EOM intact. No nystagmus noted. PERRLA. ?LUNGS: Clear to auscultation bilaterally, no wheezes, rales or rhonchi ?CARDIAC: Regular rate and rhythm, no murmurs, rubs or gallops. ?Extremities: Warm and well perfused. No edema noted. ?Neuro: CN II-XI grossly intact. Speaking in full sentences. Hearing intact. Assessment: * Assessment: 1.??Memory changes - R41.3 ( Primary)??2.??Compulsive buying - F42.8??3.??Vitamin D deficiency - E55.9?? Plan: * Treatment: * Images: Billing Information: * Visit Code:?? * Procedure Codes:?? Care Plan Details* * Sign off status: Pending * Provider:??Samanta Thomas PA-C Date:??12/03 History and Physical Notes * HPI (History of Present Illness) Category Sub-Category Detail Notes Category Not es Constitutional Alan is a 69 yo male here today with concerns of memory issues. He is interested in seeing a neurologist. Has had some experience not knowing where he was. Mostly word finding. Son in [place]. has taken over everything financially father- dementia alcohol - occasional No rec drug use. Mood down a bit- money issues. occ gabling, nothing consistent. Physical Examination Category Sub-Category Detail Notes Section Note s General: Well appearing, well nourished, age appropriate in no acute distress. Speaking in full, clear sentences. SKIN: Warm, dry intact. No rashes/lesions. HEENT: Normocephalic atraumatic. EOM intact. No nystagmus noted. PERRLA. LUNGS: Clear to auscultation bilaterally, no wheezes, rales or rhonchi CARDIAC: Regular rate and rhythm, no murmurs, rubs or gallops. Extremities: Warm and well perfused. No edema noted. Neuro: CN II-XI grossly intact. Speaking in full sentences. Hearing intact.
--- OUTSIDE RECORDS SUMMARY | 2024-12-29 15:17 | XMS_ITS | Continuity of Care Document ---
Author Organization [facility] er Address [address] [place] [id number] [facility] Name Relationship Address Phone KIANNAPER, JOSE MANUEL [...] Unknown Un available Care Team Providers Care Box Tender Name Role Phone Todd ALCANTARA, Kirstin Melendez [id number]): [facility]19[facility] - 12/18/24 [facility] [address] [place] [id number] Attending Physician: Ancelmo Gonzalez MD Admitting Physician: Ancelmo Gonzalez MD Encounter Type: Pre-OutPatient One Time Allergies, Adverse Reactions, Alerts Substance Criticality Severity [...] May repeat x 1 on arrival to [facility] if needed forprocedural anxiety, # 2 tablet, Refills 0, Tot. Refills 0, Maintenance, 06/15/24 1:21:00 PM EDT, Instructions Replace Required Details, Route to Pharmacy Electronically, [facility]/pharmacy #[id number], Partial fill upon patient request., 06/15/24, 176, [...] Team Personnel Name: Radha Antony RN Position: [facility] RN Member Role: Primary Care Nurse Name: Kaylin Rashid Position: [facility] Outreach Member Role: Lifetime Consulting Physician Name: Kirstin Brooks MD Position: [facility] Physician - Primary Care Member Role: PCP Address: [address] [place] [address], [address] Primary [facility] and [facility] Management [address] Telecom: Name: Kathya Patel RN Position: [facility] RN Member Role: Primary Care Nurse Name: Yu Lynn Position: [facility] [place] Member Role: Primary Care Nurse Care Team Related Persons Name: JOE KAM Insurance Providers Guarantor name: JOSE MANUEL EDDY Health Plan Information #: 2 Payer: MEDEX Member Number: [id number] Policy Number: NA Group Number: NA Health Plan Information #: 1 Payer: MEDICARE PART B OUTPT Member Number: [id number] Policy Number: NA Group Number: NA
--- OUTSIDE RECORDS SUMMARY | 2024-12-29 15:17 | XMS_ITS ---
Author Organization [facility] Address [address] [place] [address] Care Team Providers Care Medical Review Coordinator Name Role Phone MARIBELL BURK Primary Care Provider [phone] Samanta Thomas [phone] REASON FOR VISIT Refill Scripts MEDICATIONS Medication SIG (Take, Route, Frequency, Duration) Notes Start Date End Date Status Citalopram Hydrobromide 20 mg TAKE 1 TABLET DAILY orally once a day for 90 days Active Pravastatin Sodium 40 mg TAKE 1 TABLET D AILY orally once a day for 90 days Active Encounters Encounter Location Date Provider Diagnosis [address] [address] 12/21/2024 Samanta Thomas PLAN OF TREATMENT Medication Medication Name Sig Start Date Stop Date Notes Citalopram Hydrobromide 20 mg TAKE 1 TAB LET DAILY orally once a day for 90 days Pravastatin Sodium 40 mg TAKE 1 TABLET D AILY orally once a day for 90 days Next Appt Details Provider Name:Samanta Thomas, 0 01/12/2025 10:30:00 AM, [address] [facility] [address], [place], [address], Progress Notes * JOSE MANUEL KAM ADOB:[birth year] (69 yo M)Acc No.[id number]:12/21/2024 Patient:??JOSE MANUEL KAM :1955?Age:69 Y?Sex:Cris castro Address:[address] [place] [id number] * Refills?? Refill Pravastatin Sodium Tablet, 40 mg, orally, 90 Tablet, TAKE 1 TABLET DAILY, once a day, 90 days, Refills=1 Refill Citalopram Hydrobromide Tablet, 20 mg, orally, 90 Tablet, TAKE 1 TABLET DAILY, once a day, 90 days, Refills=1 * true * Date:??
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
[2024-12-29 15:20] LABS: Prothrombin Time Whole Bld POC 24.7 sec (11.1-13.5); ~PT, ~INR - Anti Coag Clinic 2.1 (0.9-1.1)
== END 2024-12-29 14:47 | disposition home or self-care (01) ==
LOC: HO.ACS 14:21
PROVIDERS: PCP Internal Medicine; Visit Provider Internal Medicine
DX: Z79.01 Long term (current) use of anticoagulants (principal)

== ENCOUNTER → 2024-12-29 14:21 | Outpatient (BNVA) | payer MEDICARE, SELFPAY | PROVIDERS: PCP Internal Medicine; Visit Provider Internal Medicine | DX: I48.92 Unspecified atrial flutter (principal); Z79.01 Long term (current) use of anticoagulants; Z51.81 Encounter for therapeutic drug level monitoring | CPT/HCPCS: 85610; 99211 ==

== ENCOUNTER 2025-01-26 13:50 | Outpatient (AMB) | payer MEDICARE, SELFPAY ==
[2025-01-26 14:06] LABS: Prothrombin Time Whole Bld POC 37.1 sec (11.1-13.5); ~PT, ~INR - Anti Coag Clinic 3.1 (0.9-1.1)
--- NOTE | 2025-01-26 14:29 | MHC.OFFVISCO ---
Intake Vital Signs 01/26/25 14:34 BP 118/78 Blood Pressure Location Lt brachial Position Sitting Intake Visit Reasons: Anticoagulation Allergies No Known Allergies Allergy (Verified 01/26/25 13:52) Medication List - Last Reconciled 01/26/25 by Ivana Ritchie RN abiraterone 1,000 mg PO DAILY [CALCIUM PO] cholecalciferol (vitamin D3) (Vitamin D3) PO citalopram 20 mg PO DAILY cyclobenzaprine 5 mg PO BEDTIME PRN diltiazem HCl CD 300 mg PO DAILY furosemide 40 mg PO DAILY leuprolide (Lupron Depot) intramuscularly every 3 months; levothyroxine 100 mcg PO DAILY losartan 100 mg PO DAILY metformin mg PO nitroglycerin 0.4 mg sublingual pantoprazole 40 mg PO DAILY pravastatin mg PO prednisone 5 mg PO DAILY tizanidine 2 mg PO BEDTIME tramadol 50 mg PO BID PRN warfarin (Jantoven) 5 mg See Protocol PO DAILY Nursing Note INR 3.1 out of therapeutic range Medications and supplements reviewed Patient status: has spinal stenosis that will require surgery -No cancer in spine has restless legs may be from back condition - no sure, but was placed on ropinerol .25mg daily which can raise INR values- and possible lower or raise his b/p B/P check 118/ 78 left arm Medications or supplements: ropinerol .25mg daily dose to increase but pt waiting to talk with md due to the possible side effects, also last lupron shot 01/19/25 Diet: good - enc weekly greens up to 2-3 servings / week Denies any signs and symptoms of bleeding or clotting or unusual bruising Bleeding, bruising, clotting discussed Nutritional guidance given: increase to 3 greens / per week if ropinerol increases Dose: decrease to 5mg x 3 days/ 2.5mg x 4 days F/U INR Date : 02/09/25? Patient verbalizing understanding of instructions given with read back and dates . Coding Level of Care Code Est Patient Level 1 Diagnoses Current use of anticoagulant therapy Z79.01 Assessment & Plan Assessment & Plan (1) Current use of anticoagulant therapy: Code(s): Z79.01 - medical terminologist (current) use of anticoagulants Category: Medical
[2025-01-26 14:34] VITALS: BP 118/78
--- OUTSIDE RECORDS SUMMARY | 2025-01-26 17:13 | XMS_ITS | Clinical Summary ---
Author Organization [facility] Address [address] [place] [address] Care Team Providers Care Adjunct Faculty For Medical Terminology Name Role Phone Kirstin Brooks MD Primary Care Provider [phone] Allergies Active Allergy Reactions Criticality Noted Date [...] age to complete this topic Care Teams Adjunct Faculty For Medical Terminology Relationship Specialty Start Date End Date Kirstin Brooks MD [address] [place] [address] PCP - General Internal Medicine 03/11/19 KIM LANDAVERDE Referring Physician Orthopedic Surgery 12/26/15
--- OUTSIDE RECORDS SUMMARY | 2025-01-26 17:13 | XMS_ITS ---
Author Organization [facility] Address [address] [place] [address] Care Team Providers Care Head Insulation Board Saw Operator Name Role Phone MARIBELL BURK Primary Care Provider [phone] DELMAR ROBLES [phone] REASON FOR VISIT Still not feeling well MEDICATIONS Medication SIG (Take, Route, Fr equency, Duration) Notes Start Date End Date Status Azithromycin 250 MG 2 tablets x1 day, th en 1 tablet daily Orally for 5 days 01/16/2025 Active predniSONE 20 MG 2 tablets Orally Onc e a day for 5 days 01/16/2025 Active Encounters Encounter Location Date Provider Diagnosis [facility] [address] [facility] [address] [place] [address] 01/16/2025 DELMAR ROBLES PLAN OF TREATMENT Medication Medication Name Sig Start Date Stop Date Notes Azithromycin 250 MG 2 tablets x1 day, th en 1 tablet daily Orally for 5 days 01/16/2025 predniSONE 20 MG 2 tablets Orally Once a day for 5 days Next Appt Details Provider Name:Samanta Thomas, Mackenzie 02/16/2025 10:30:00 AM, [address] [facility], [address], [place], [address], Progress Notes * JOSE MANUEL KAM ADOB:[birth year] (69 yo M)Acc No.[id number]:01/16/2025 Patient:??JOSE MANUEL KAM :1955?Age:69 Y?Sex:Cris castro Address:[address] [place] [address] * Refills?? Start Azithromycin Tablet, 250 MG, Orally, 6 Tablet, 2 tablets x1 day, then 1 tablet daily, 5 days, Refills=0 Start predniSONE Tablet, 20 MG, Orally, 10 Tablet, 2 tablets, Once a day, 5 days, Refills=0 * true * Date:??
--- OUTSIDE RECORDS SUMMARY | 2025-01-26 17:14 | XMS_ITS ---
Author Organization [facility] Address [address] [place] [address] Care Team Providers Care Buckle Wire Inserter Name Role Phone BURK, ARNALDOSAIRA Primary Care Provider Samanta Thomas [phone] Encounters Encounter Location Date Provider Diagnosis [facility] [address] [place] [address] 01/20/2025 Samanta Thomas PLAN OF TREATMENT Next Appt Details Provider Name:Samanta Thomas, 0 02/16/2025 10:30:00 AM, [address], [address], [place], [address], Progress Notes * JOSE MANUEL KAM ADOB:[birth year] (69 yo M)Acc No.[id number]:01/20/2025 Patient:??JOSE MANUEL KAM :1955?Age:69 Y?Sex:Cris castro Address:[address] [place] [address] * true * Date:??
--- OUTSIDE RECORDS SUMMARY | 2025-01-26 17:14 | XMS_ITS ---
Author Organization [facility] Address [address] [place] [address] Care Team Providers Care Visual Specialist Name Role Phone MARIBELL BURK Primary Care Provider [phone] REASON FOR VISIT sick visit Encounters Encounter Location Date Provider Diagnosis [facility] [address] [place] [address] 01/15/2025 MARIBELL BURK PLAN OF TREATMENT Next Appt Details Provider Name:Samanta Thomas, 0 02/16/2025 10:30:00 AM, [address], [address], [place], [address], Progress Notes * JOSE MANUEL KAM ADOB:[birth year] (69 yo M)Acc No.[id number]:01/15/2025 Patient:??JOSE MANUEL KAM :1955?Age:69 Y?Sex:Cris castro Address:[address] [place] [address] * true * Date:??
--- OUTSIDE RECORDS SUMMARY | 2025-01-26 17:14 | XMS_ITS | Clinical Summary ---
Author Organization [facility] Address [address] [place] [address] Phone Care Team Providers Care Shale Miner Blasting Name Role Phone Kirstin Brooks MD Primary Care Provider [phone] Allergies No known active allergies Medications tiZANidine (ZANAFLEX) 2 mg tablet Sig - [...] 5 (five) minutes if needed. Active calcium carbonate-vitam in D3 500 mg-15 mcg (600 unit) tablet [...] type diabetes mellitus with ketoacidosis, uncontrolled(250.12) 12/29/2020 Immunizations Name Administration Dates Next Due [email or web address] SARS-CoV-2 COVID-19, mRNA, LNP-S, preservative free 01/12/2021,12/22/2020 [...] Recorded Sex Assigned at Not on file Legal Sex Male 10:25 PM EST Gender Identity Not on file Sexual Orientation Not on file Obstetrics History Last Filed [...] Health Maintenance Due Date Last Done Comments Diabetes: Annual Foot Exam 1965 Diabetes: Annual Retina Eye Exam 1965 DTaP,Tdap,and Td Vaccines (1 - Tdap) 1974 Pneumococcal Vaccine: 50+ Years (1 of 2 - PCV) 1974 Abdominal Aortic Aneurysm (AAA) Screen 11/04/2022 Cholesterol Screening (Lipid Panel) 11/04/2022 Depression Screening 11/04/2022 Hepatitis C Screening 11/04/2022 Medicare Annual Wellness Visit 11/04/2022 Social Influencers of Health Screening 11/04/2022 Diabetes: Annual Urine Albumin-Creatinine Ratio (uACR) 11/16/2022 Diabetes: Blood Sugar Control Test (HGBA1C) 11/16/2022 Falls Risk Assessment 10/14/2025 10/14/2024 Diabetes: Annual GFR (Glomerular Filtration Rate) 10/21/2025 10/21/2024, 07/29/2024, 07/29/2024, Additional history exists Hypertension/CHF/CAD Annual BMP Blood Test 10/21/2025 10/21/2024, 07/29/2024, 07/29/2024, Additional history exists Colorectal Cancer Screening: Colonoscopy 10/14/2029 10/14/2024 RSV [...] patient's age to complete this topic Meningococcal B Vacine Aged Out No lo nger eligible based on patient's age to complete this topic RSV Immunization Patients Under 20 months Aged Out No longer eligible based on patient's age to complete this topic Varicella Vaccines Aged Out No longer eligible based on patient's age to complete this topic Procedures Procedure Name Priority Date/Time Associated Diagnosis Comments CBC WITH AUTO DIFFERENTIAL Routine 01/11/2025 10:26 AM EST White blood cell disorder CBC AND DIFFERENTIAL Routine 01/11/2025 10:26 AM EST White blood cell disorder COLONOSCOPY Routine 10/14/2024 9:58 AM EST Hemorrhage of rectum and anus ANNUAL BMP BLOOD TEST Routine 07/29/2024 from Last 3 Months or Most Recently Relevant to Health Maintenance Results * (ABNORMAL) CBC auto differential (01/11/2025 10:26 AM EST) [facility] Signature WBC 8.1 4.8 - 10.8 K/[facility] LAB HEMETOLOGY METHOD 01/11/2025 11:03 AM EST [facility] LAB RBC 4.20(L) 4.50 - 5.50 M/mcL LAB HEMETOLOGY METHOD 01/11/2025 11:03 AM [facility] LAB Hemoglobin 12.6(L) 13.5 - 17.5 g/dL LAB HEMETOLOGY METHOD 01/11/2025 11:03 AM [facility] LAB Hematocrit 40.3(L) 42.0 - 54.0 % LAB HEMETOLOGY METHOD 01/11/2025 11:03 AM [facility] LAB MCV 96.4 79.0 - 98.0 FL LAB HEMETOLOGY METHOD 01/11/2025 11:03 AM [facility] LAB MCH 30.1 27.0 - 32.0 pcg LAB HEMETOLOGY METHOD 01/11/2025 11:03 AM [facility] LAB MCHC 31.3(L) 32.0 - 37.0 g/dL LAB HEMETOLOGY METHOD 01/11/2025 11:03 AM [facility] LAB RDW 13.9 11.0 - 15.0 % LAB HEMETOLOGY METHOD 01/11/2025 11:03 AM [facility] LAB Platelets 276 130 - 400 K/mcL LAB HEMETOLOGY METHOD 01/11/2025 11:03 AM [facility] LAB MPV 9.9 7.0 - 11.0 FL LAB HEMETOLOGY METHOD 01/11/2025 11:03 AM [facility] LAB NRBC 0.0 <1.0 % LAB HEMETOLOGY METHOD 01/11/2025 11:03 AM [facility] LAB NRBC Absolute 0.00 <0.10 K/mcL LAB HEMETOLOGY METHOD 01/11/2025 11:03 AM [facility] LAB Neutrophils Relative 77.1 % LAB HEMETOLOGY METHOD 01/11/2025 11:03 AM [facility] LAB Lymphocytes Relative 11.0 % LAB HEMETOLOGY METHOD 01/11/2025 11:03 AM [facility] LAB Monocytes Relative 8.7 % LAB HEMETOLOGY METHOD 01/11/2025 11:03 AM [facility] LAB Eosinophils Relative 1.9 % LAB HEMETOLOGY METHOD 01/11/2025 11:03 AM [facility] LAB Basophils Relative 0.9 % LAB HEMETOLOGY METHOD 01/11/2025 11:03 AM [facility] LAB Immature Granulocytes Relative 0.4 % LAB HEMETOLOGY METHOD 01/11/2025 11:03 AM [facility] LAB Neutrophils Absolute 6.24 1.50 - 7.00 K/mcL LAB HEMETOLOGY METHOD 01/11/2025 11:03 AM [facility] LAB Lymphocytes Absolute 0.89(L) 1.00 - 5.00 K/mcL LAB HEMETOLOGY METHOD 01/11/2025 11:03 AM [facility] LAB Monocytes Absolute 0.70 0.20 - 1.00 K/mcL LAB HEMETOLOGY METHOD 01/11/2025 11:03 AM [facility] LAB Eosinophils Absolute 0.15 0.00 - 0.50 K/mcL LAB HEMETOLOGY METHOD 01/11/2025 11:03 AM [facility] LAB Basophils Absolute 0.07 0.00 - 0.20 K/mcL LAB HEMETOLOGY METHOD 01/11/2025 11:03 AM [facility] LAB Immature Granulocytes Absolute 0.03 0.00 - 0.03 K/mcL LAB HEMETOLOGY METHOD 01/11/2025 11:03 AM [facility] LAB Blood Venous blood specimen / Unknown Venipuncture / Unknown 01/11/2025 10:26 AM EST 01/11/2025 10:53 AM EST us Samanta MONTESINOS LAB BLOOD ORDERABLES Final Resul t [facility] H[facility] LAB [address] [place] [address], * COLONOSCOPY Anesthesia - MAC; [facility] ENDOSCOPY (10/14/2024 9:58 AM EST) Anatomical [...] 5 days. Narrative 10/14/2024 10:[address] [facility] Patient Name: Alan Tamez Procedure Date: [...] verified by the physician, the nurse, the family assessment worker ? and the conveyor technician in the pre-procedure area in the [...] Procedure Code(s): ? --- Professional --- ? 41489, 59, Colonoscopy, flexible; with control of ? bleeding, any method ? 70257, Colonoscopy, flexible; with removal of ? tumor(s), polyp(s), or other lesion(s) by snare ? technique Diagnosis Code(s): ? --- Professional --- ? D12.3, Benign neoplasm of transverse colon (hepatic ? flexure or splenic flexure) ? K92.1, Melena (includes Hematochezia) CPT copyright 2020 [employer]. All rights reserved. The codes documented in this report are preliminary and upon deli associate review may be revised to meet current compliance requirements. Garcia Vigil MD 10/14/2024 10:01:37 AM This report has been signed electronically.Garcia Vigil MD Number of Addenda: 0 Note Initiated On: 10/14/2024 9:30 AM Scope Withdrawal Time: 0 hours 17 minutes 21 seconds Scope In: 9:36:33 AM Scope Out: 9:57:43 AM ? Endoscopy Department at [facility] - [address] [place] [address], ? [place] [address] Procedure Note Garcia Vigil MD - 10/14/2024 [facility] Patient Name: Alan Tamez Procedure Date: [...] the physician, the nurse, theanesthetist and the conveyor technician in the pre-procedure area in the [...] loss wasminimal. Procedure Code(s): --- Professional --- 73589, 59, Colonoscopy, flexible; with control of bleeding, any method 57027, Colonoscopy, flexible; with removal of tumor(s), polyp(s), or other lesion(s) by snare technique Diagnosis Code(s): --- Professional --- D12.3, Benign neoplasm of transverse colon (hepatic flexure or splenic flexure) K92.1, Melena (includes Hematochezia) CPT copyright 2020 [employer]. All rights reserved. The codes documented in this report are preliminary and upon deli associate reviewmay be revised to meet current compliance requirements. Garcia Vigil MD 10/14/2024 10:01:37 AM This report has been signed electronically.Garcia Vigil MD Number of Addenda: 0 Note Initiated On: 10/14/2024 9:30 AM Scope Withdrawal Time: 0 hours 17 minutes 21 seconds Scope In: 9:36:33 AM Scope Out: 9:57:43 AM Endoscopy Department at [facility] - [address] [place] [phone] IMPRESSION: - Three 2 to 6 mm polyps in the transverse colon, removed with a cold snare. Resected andretrieved. - Diverticulosis in the sigmoid colon, in the descending colon and in the ascending colon. - Internal hemorrhoids. Recommendation: - Discharge patient to home. - Resume Coumadin (warfarin) at prior dose in 5days. Garcia Vigil MD GI~PROCEDURE ORDERABLES Fin al Result * Annual BMP Blood Test (07/29/2024) Annual [facility] Blood Test abstracted Historical Provider HEALTH MAINTENANCE Final Result from Last 3 Months or Most Recently Relevant to [place] [id number] MEDICARE [facility] [place] [phone] Care Teams Shale Miner Blasting Relationship Specialty Start Date End Date Kirstin Brooks MD [address] [place] [address] PCP - General Internal Medicine 01/11/25
== END 2025-01-26 14:39 | disposition home or self-care (01) ==
LOC: HO.ACS 13:50
PROVIDERS: PCP Internal Medicine; Visit Provider Internal Medicine
DX: Z79.01 Long term (current) use of anticoagulants (principal)

== ENCOUNTER → 2025-01-26 13:50 | Outpatient (BNVA) | payer MEDICARE, SELFPAY | PROVIDERS: PCP Internal Medicine; Visit Provider Internal Medicine | DX: I48.92 Unspecified atrial flutter (principal); Z79.01 Long term (current) use of anticoagulants; Z51.81 Encounter for therapeutic drug level monitoring | CPT/HCPCS: 85610; 99211 ==

== ENCOUNTER 2025-02-09 13:51 | Outpatient (AMB) | payer MEDICARE, SELFPAY ==
[2025-02-09 14:01] LABS: Prothrombin Time Whole Bld POC 32.5 sec (11.1-13.5); ~PT, ~INR - Anti Coag Clinic 2.7 (0.9-1.1)
--- NOTE | 2025-02-09 14:02 | MHC.OFFVISCO ---
Intake Intake Visit Reasons: Anticoagulation Allergies No Known Allergies Allergy (Verified 02/09/25 13:56) Medication List - Last Reconciled 02/09/25 by Donna Archer, RN abiraterone 1,000 mg PO DAILY [CALCIUM PO] cholecalciferol (vitamin D3) (Vitamin D3) PO citalopram 20 mg PO DAILY cyclobenzaprine 5 mg PO BEDTIME PRN diltiazem HCl CD 300 mg PO DAILY furosemide 40 mg PO DAILY leuprolide (Lupron Depot) intramuscularly every 3 months; levothyroxine 100 mcg PO DAILY losartan 100 mg PO DAILY metformin mg PO nitroglycerin 0.4 mg sublingual pantoprazole 40 mg PO DAILY pravastatin mg PO prednisone 5 mg PO DAILY tizanidine 2 mg PO BEDTIME tramadol 50 mg PO BID PRN warfarin (Jantoven) 5 mg See Protocol PO DAILY Nursing Note INR: 2.7 in therapeutic range of 2-3 Medications and supplements reviewed No changes in health, diet, medications or supplements, Pt states he started on ropinirole for restless leg syndrome but he stopped taking it because it raised his BP and INR. Denies any signs and symptoms of bleeding or bruising or clotting. Bleeding, bruising, clotting discussed Nutritional guidance given Dose: 5mg X 4 days and 2.5mg X 3 days (Mon, Wed & Fri) F/U INR: 2 weeks Patient verbalizes understanding of instructions given Coding Level of Care Code Est Patient Level 1 Diagnoses Current use of anticoagulant therapy Z79.01 Assessment & Plan Assessment & Plan (1) Current use of anticoagulant therapy: Code(s): Z79.01 - intermediate (current) use of anticoagulants Category: Medical
--- OUTSIDE RECORDS SUMMARY | 2025-02-09 16:48 | XMS_ITS ---
Author Organization [facility] Address [address] [place] [address] Care Team Providers Care Nursery Manager Name Role Phone Samanta Thomas Unavailable [phone] REASON FOR VISIT RE:Referral updat Encounters Encounter Location Date Provider Diagnosis [address] [place] [address] 02/09/2025 Samanta Thomas PLAN OF TREATMENT Next Appt Details Provider Name:Samanta Thomas, 0 02/16/2025 10:30:00 AM, [address], [place], [address], Progress Notes * JOSE MANUEL KAM ADOB:[birth year] (69 yo M)Acc No.[id number]:02/09/2025 Patient:??JOSE MANUEL KAM :1955?Age:69 Y?Sex:Cris castro Address:[address] [place] [address] * true * Date:??
--- OUTSIDE RECORDS SUMMARY | 2025-02-09 16:48 | XMS_ITS | Clinical Summary ---
Author Organization [facility] Address [address] [place] [address] Care Team Providers Care Turfgrass Technician Name Role Phone Kirstin Brooks MD Primary Care Provider [phone] Allergies Active Allergy Reactions Criticality Noted Date [...] age to complete this topic Care Teams Turfgrass Technician Relationship Specialty Start Date End Date Kirstin Brooks MD [address] [place] [address] PCP - General Internal Medicine 03/11/19 KIM LANDAVERDE Referring Physician Orthopedic Surgery 12/26/15
--- OUTSIDE RECORDS SUMMARY | 2025-02-09 16:48 | XMS_ITS ---
Author Organization [facility] Address [address] [place] [address] Care Team Providers Care Sewage Plant Attendant Name Role Phone Samanta Thomas Unavailable [phone] REASON FOR VISIT Referral updat Encounters Encounter Location Date Provider Diagnosis [address] [facility] [address] [place] [address] 02/08/2025 Samantaabigail Knightosito PLAN OF TREATMENT Next Appt Details Provider Name:Samanta Thomas, 0 02/16/2025 10:30:00 AM, [address], [place], [address], Progress Notes * JOSE MANUEL KAM ADOB:[birth year] (69 yo M)Acc No.[id number]:02/08/2025 Patient:??JOSE MANUEL KAM :1955?Age:69 Y?Sex:Cris castro Address:[address] [place] [address] * true * Date:??
--- OUTSIDE RECORDS SUMMARY | 2025-02-09 16:49 | XMS_ITS | Clinical Summary ---
Author Organization [facility] Address [address] [place] [address] Phone Care Team Providers Care Slip Caster Name Role Phone Kirstin Brooks MD Primary Care Provider [phone] Allergies No known active allergies Medications tiZANidine [...] 12/29/2020 Immunizations Name Administration Dates Next Due iRewardChart SARS-CoV-2 COVID-19, mRNA, LNP-S, preservative free 01/12/2021,12/22/2020 [...] auto differential (01/11/2025 10:26 AM EST) [facility] Signature WBC 8.1 4.8 - 10.8 K/[facility] LAB HEMETOLOGY METHOD 01/11/2025 11:03 AM EST [facility] LAB RBC 4.20(L) 4.50 - 5.50 [...] MONTESINOS LAB BLOOD ORDERABLES Final Resul t [facility] LAB [address] [place] [address], * COLONOSCOPY Anesthesia - MAC; [facility] ENDOSCOPY (10/14/2024 9:58 AM EST) Anatomical Region [...] 5 days. Narrative 10/14/2024 10:01 AM EST [facility] GI Patient Name: Alan Tamez [...] verified by the physician, the nurse, the enologist ? and the csr technician in the pre-procedure area in the [...] Procedure Code(s): ? --- Professional --- ? 57841, 59, Colonoscopy, flexible; with control of ? bleeding, any method ? 00792, Colonoscopy, flexible; with removal of ? tumor(s), polyp(s), or other lesion(s) by snare ? technique Diagnosis Code(s): ? --- Professional --- ? D12.3, Benign neoplasm of transverse colon (hepatic ? flexure or splenic flexure) ? K92.1, Melena (includes Hematochezia) CPT copyright 2020 [employer]. All rights reserved. The codes documented in this report are preliminary and upon head esthetician review may be revised to meet current compliance requirements. Garcia Vigil MD 10/14/2024 10:01:37 AM This report has been signed electronically.Garcia Vigil MD Number of Addenda: 0 Note Initiated On: 10/14/2024 9:30 AM Scope Withdrawal Time: 0 hours 17 minutes 21 seconds Scope In: 9:36:33 AM Scope Out: 9:57:43 AM ? Endoscopy Department at [facility] - [address] [place] [address], ? [place] [address] Procedure Note Garcia Vigil MD - 10/14/2024 [facility] GI Patient Name: Alan Tamez [...] the physician, the nurse, theanesthetist and the csr technician in the pre-procedure area in the [...] loss wasminimal. Procedure Code(s): --- Professional --- 51207, 59, Colonoscopy, flexible; with control of bleeding, any method 47444, Colonoscopy, flexible; with removal of tumor(s), polyp(s), or other lesion(s) by snare technique Diagnosis Code(s): --- Professional --- D12.3, Benign neoplasm of transverse colon (hepatic flexure or splenic flexure) K92.1, Melena (includes Hematochezia) CPT copyright 2020 [employer]. All rights reserved. The codes documented in this report are preliminary and upon head esthetician reviewmay be revised to meet current compliance requirements. Garcia Vigil MD 10/14/2024 10:01:37 AM This report has been signed electronically.Garcia Vigil MD Number of Addenda: 0 Note Initiated On: 10/14/2024 9:30 AM Scope Withdrawal Time: 0 hours 17 minutes 21 seconds Scope In: 9:36:33 AM Scope Out: 9:57:43 AM Endoscopy Department at [facility] - [address] [place] [phone] IMPRESSION: - Three 2 to 6 mm [...] Annual BMP Blood Test (07/29/2024) Annual [facility] Blood Test abstracted Historical Provider HEALTH MAINTENANCE Final Result from Last 3 Months or Most Recently Relevant to [place] [id number] MEDICARE [facility] [phone] Care Teams Slip Caster Relationship Specialty Start Date End Date Kirstin Brooks MD [address] [place] [address] PCP - General Internal Medicine 01/11/25
--- OUTSIDE RECORDS SUMMARY | 2025-02-09 16:49 | XMS_ITS ---
Author Organization [facility] Address [address] [place] [address] Care Team Providers Care Frame Catcher Name Role Phone Samanta Thomas Unavailable [phone] Encounters Encounter Location Date Provider Diagnosis [address] [place] [address] 02/02/2025 Samanta Thomas PLAN OF TREATMENT Next Appt Details Provider Name:Samanta Thomas, 0 02/16/2025 10:30:00 AM, [address], [address], [place], [address], Progress Notes * JOSE MANUEL KAM ADOB:[birth year] (69 yo M)Acc No.[id number]:02/02/2025 Patient:??JOSE MANUEL KAM :1955?Age:69 Y?Sex:Cris castro Address:[address] [place] [id number] * true * Date:??
== END 2025-02-09 14:14 | disposition home or self-care (01) ==
LOC: HO.ACS 13:51
PROVIDERS: PCP Internal Medicine; Visit Provider Internal Medicine
DX: Z79.01 Long term (current) use of anticoagulants (principal)

== ENCOUNTER → 2025-02-09 13:51 | Outpatient (BNVA) | payer MEDICARE, SELFPAY | PROVIDERS: PCP Internal Medicine; Visit Provider Internal Medicine | DX: I48.92 Unspecified atrial flutter (principal); Z79.01 Long term (current) use of anticoagulants; Z51.81 Encounter for therapeutic drug level monitoring | CPT/HCPCS: 85610; 99211 ==

== ENCOUNTER 2025-03-02 14:23 | Outpatient (AMB) | payer MEDICARE, SELFPAY ==
[2025-03-02 14:40] LABS: Prothrombin Time Whole Bld POC 23.2 sec (11.1-13.5); ~PT, ~INR - Anti Coag Clinic 1.9 (0.9-1.1)
--- NOTE | 2025-03-02 14:48 | MHC.OFFVISCO ---
Intake Intake Visit Reasons: Anticoagulation Allergies No Known Allergies Allergy (Verified 03/02/25 14:32) Medication List - Last Reconciled 03/02/25 by Donna Archer RN abiraterone 1,000 mg PO DAILY [CALCIUM PO] cholecalciferol (vitamin D3) (Vitamin D3) PO citalopram 20 mg PO DAILY cyclobenzaprine 5 mg PO BEDTIME PRN diltiazem HCl CD 300 mg PO DAILY furosemide 40 mg PO DAILY leuprolide (Lupron Depot) intramuscularly every 3 months; levothyroxine 100 mcg PO DAILY losartan 100 mg PO DAILY metformin mg PO nitroglycerin 0.4 mg sublingual pantoprazole 40 mg PO DAILY pravastatin mg PO prednisone 5 mg PO DAILY tizanidine 2 mg PO BEDTIME tramadol 50 mg PO BID PRN warfarin (Jantoven) 5 mg See Protocol PO DAILY Nursing Note INR: 1.9?out of therapeutic range of 2-3 Medications and supplements reviewed Patient status: pt has a fx of T8 and having a lot of pain and taking tramadol with some relief. States the fracture is r/t radiation treatment for prostate CA years ago. Medications or supplements: no changes Diet: usual diet for pt Denies any signs and symptoms of bleeding or clotting or unusual bruising Bleeding, bruising, clotting discussed Nutritional guidance given: to avoid greens today. Dose: pt will take his usual dose of 5mg today and we will increase tomorrow's dose to 5mg (2.5mg) then will resume 5mg X 4 days and 2.5mg X 3 days (M/W/F) F/U INR Date : 2 weeks?? Patient verbalizing understanding of instructions given. Coding Level of Care Code Est Patient Level 1 Diagnoses Current use of anticoagulant therapy Z79.01 Results AMB INR Fingerstick AMB INR Fingerstick 1.9 Last Edit by Donna Archer RN on 03/02/25 14:45 interface delay Assessment & Plan Assessment & Plan (1) Current use of anticoagulant therapy: Code(s): Z79.01 - termite control servicer (current) use of anticoagulants Category: Medical
--- OUTSIDE RECORDS SUMMARY | 2025-03-02 17:12 | XMS_ITS | Clinical Summary ---
Author Organization [facility] Address [address] [place] [address] Care Team Providers Care Licensed Tax Consultant Name Role Phone Kirstin Brooks MD Primary Care Provider [phone] Allergies Active Allergy Reactions Criticality Noted Date [...] age to complete this topic Care Teams Licensed Tax Consultant Relationship Specialty Start Date End Date Kirstin Brooks MD [address] [place] [address] PCP - General Internal Medicine 03/11/19 KIM LANDAVERDE Referring Physician Orthopedic Surgery 12/26/15
--- OUTSIDE RECORDS SUMMARY | 2025-03-02 17:12 | XMS_ITS ---
Author Organization [facility] Address [address] [place] [address] Care Team Providers Care Rigging Helper Name Role Phone Samanta Thomas Unavailable [phone] REASON FOR VISIT x-ray film Encounters Encounter Location Date Provider Diagnosis [address] [facility] [address] [place] [address] 02/22/2025 Samanta Knightemilesara PLAN OF TREATMENT Next Appt Details Provider Name:Samanta Thomas, 0 05/11/2025 10:00:00 AM, [address], [place], [address], Progress Notes * JOSE MANUEL KAM ADOB:[birth year] (69 yo M)Acc No.[id number]:02/22/2025 Patient:??JOSE MANUEL KAM :1955?Age:69 Y?Sex:Cris castro Address:[address] [place] [address] * true * Date:??
--- OUTSIDE RECORDS SUMMARY | 2025-03-02 17:12 | XMS_ITS ---
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 No complaints MEDICATIONS Medication SIG (Take, Route, Frequency, Duration) Notes Start Date End Date Status tiZANidine HCl 2 MG 1 tablet at bedtime Orally once daily for 30 days as needed Active predniSONE 20 MG 2 tablets Orally Once a day for 5 days 01/16/2025 Active Azithromycin 250 MG 2 tablets x1 day, then 1 tablet daily Orally for 5 days 01/16/2025 Not-Taking Pantoprazole Sodium 40 mg TAKE 1 TABLET DAILY Active Warfarin Sodium 5 mg TAKE 1 TABLET DAILY Active Losartan Potassium 100 mg TAKE 1 TABLET DAILY Active metFORMIN HCl 500 mg TAKE 1 TABLET DAILY WITH A MEAL Active Citalopram Hydrobromide 20 mg TAKE 1 TABLET DAILY orally once a day for 90 days Active Pravastatin Sodium 40 mg TAKE 1 TABLET D AILY orally once a day for 90 days Active Furosemide 40 mg TAKE 1 TABLET DAILY Active Levothyroxine Sodium 100 MCG TAKE 1 TABLET DAILY IN THE MORNING ON AN EMPTY STOMACH Active traMADol HCl 50 MG 1 tablet as needed dose increase on 04/01/24 Orally twice a day for 30 days 04/14/2024 Active [address]glycerin 0[address] 1 TABLET BY MOUTH UNDER TONGUE for 30 days Active Abiraterone Acetate 500 MG one tablet Oral once daily for 30 days Active dilTIAZem HCl ER 300 MG 1 capsule Orally Once a day Active Calcium 600 MG 1 tablet with meals Orally Twice a day Active Vitamin D 50 MCG (1999 UT) 1 tablet Orally Once a day Active predniSONE 5 MG 1 tablet Orally Once a day Active SOCIAL HISTORY Tobacco Use: Social History Observation Description Date Details (start date - stop date) Former Smoker NA - NA Sex Assigned At : Social History Observation Description Sex Assigned At Unknown Tobacco Use/Smoking Question Answer Notes Are you a former smoker VITAL SIGNS Blood pressure systolic 124 mm Hg 02/17/20 25 Blood pressure diastolic 82 mm Hg 025 Heart Rate 84 /min 02/16/2025 Height 69 in 02/16/2025 Weight 274 lbs 02/16/2025 BMI 40.46 kg/m2 02/16/2025 Oximetry 99 % 02/16/2025 Encounters Encounter Location Date Provider Diagnosis [address] [place] [address] 02/16/2025 Samanta Thomas Memory changes R41.3 ; Acute bilateral thoracic back pain M54.6 ; Compulsive buying F42.8 ; ENE on CPAP G47.33 and Periodic limb movement disorder G47.61 ASSESSMENTS Encounter Date Diagnosis Assessment Notes Treatment Notes Treatment Clinical Notes Section Notes 02/16/2025 Memory changes (ICD-10 - R41.3) #Thoracic back pain. Mild thoracic back pain x 3 days. No recent injury. Mild paraspinal muscle spasm on exam. He is requesting x-ray we will get today and follow-up pending results. He does have tizanidine at home and will try that at bedtime. Suspect may be secondary to golfing. Follow-up with any new or worsening symptoms. #Memory changes. scheduled in July with memory clinic #Compulsive buying. He has had an issue with compulsive spending for many years resulting in significant financial issues. He is currently on Celexa. Awaiting appt with psychiatry. #ENE. On CPAP/BiPAP. Followed by pulmonology. . #Periodic limb movement disorder. Tried the propranolol prescribed by Dr. Patterson he however did not like the side effects and has since discontinued. Will follow-up with Dr. Patterson next week. Case discussed with collaborating physician Moustapha Brooks who reviewed the assessment and plan. Chart, medications, labs, vital signs reviewed. Dictation was accomplished with the use of [employer] voice recognition software, prone to medical misidentifications and grammatical errors. This is unintentional and the practitioner does try to identify and correct these, but some could still be present. Please do not hesitate to contact practitioner for clarification. All questions answered to patients satisfaction. Patient verbalized understanding of diagnosis and treatments explained. To call sooner prior to next visit it any questions/concerns arise. 02/16/2025 Acute bilateral thoracic back pain (ICD-10 - M54.6) #Thoracic back pain. Mild thoracic back pain x 3 days. No recent injury. Mild paraspinal muscle spasm on exam. He is requesting x-ray we will get today and follow-up pending results. He does have tizanidine at home and will try that at bedtime. Suspect may be secondary to golfing. Follow-up with any new or worsening symptoms. #Memory changes. scheduled in July with memory clinic #Compulsive buying. He has had an issue with compulsive spending for many years resulting in significant financial issues. He is currently on Celexa. Awaiting appt with psychiatry. #ENE. On CPAP/BiPAP. Followed by pulmonology. . #Periodic limb movement disorder. Tried the propranolol prescribed by Dr. Patterson he however did not like the side effects and has since discontinued. Will follow-up with Dr. Patterson next week. Case discussed with collaborating physician Moustapha Brooks who reviewed the assessment and plan. Chart, medications, labs, vital signs reviewed. Dictation was accomplished with the use of [employer] voice recognition software, prone to medical misidentifications and grammatical errors. This is unintentional and the practitioner does try to identify and correct these, but some could still be present. Please do not hesitate to contact practitioner for clarification. All questions answered to patients satisfaction. Patient verbalized understanding of diagnosis and treatments explained. To call sooner prior to next visit it any questions/concerns arise. 02/16/2025 Compulsive buying (ICD-10 - F42.8) #Thoracic back pain. Mild thoracic back pain x 3 days. No recent injury. Mild paraspinal muscle spasm on exam. He is requesting x-ray we will get today and follow-up pending results. He does have tizanidine at home and will try that at bedtime. Suspect may be secondary to golfing. Follow-up with any new or worsening symptoms. #Memory changes. scheduled in July with memory clinic #Compulsive buying. He has had an issue with compulsive spending for many years resulting in significant financial issues. He is currently on Celexa. Awaiting appt with psychiatry. #ENE. On CPAP/BiPAP. Followed by pulmonology. . #Periodic limb movement disorder. Tried the propranolol prescribed by Dr. Patterson he however did not like the side effects and has since discontinued. Will follow-up with Dr. Patterson next week. Case discussed with collaborating physician Moustapha Brooks who reviewed the assessment and plan. Chart, medications, labs, vital signs reviewed. Dictation was accomplished with the use of [employer] voice recognition software, prone to medical misidentifications and grammatical errors. This is unintentional and the practitioner does try to identify and correct these, but some could still be present. Please do not hesitate to contact practitioner for clarification. All questions answered to patients satisfaction. Patient verbalized understanding of diagnosis and treatments explained. To call sooner prior to next visit it any questions/concerns arise. 02/16/2025 ENE on CPAP (ICD-10 - G47.33) #Thoracic back pain. Mild thoracic back pain x 3 days. No recent injury. Mild paraspinal muscle spasm on exam. He is requesting x-ray we will get today and follow-up pending results. He does have tizanidine at home and will try that at bedtime. Suspect may be secondary to golfing. Follow-up with any new or worsening symptoms. #Memory changes. scheduled in July with memory clinic #Compulsive buying. He has had an issue with compulsive spending for many years resulting in significant financial issues. He is currently on Celexa. Awaiting appt with psychiatry. #ENE. On CPAP/BiPAP. Followed by pulmonology. . #Periodic limb movement disorder. Tried the propranolol prescribed by Dr. Patterson he however did not like the side effects and has since discontinued. Will follow-up with Dr. Patterson next week. Case discussed with collaborating physician Moustapha Brooks who reviewed the assessment and plan. Chart, medications, labs, vital signs reviewed. Dictation was accomplished with the use of [employer] voice recognition software, prone to medical misidentifications and grammatical errors. This is unintentional and the practitioner does try to identify and correct these, but some could still be present. Please do not hesitate to contact practitioner for clarification. All questions answered to patients satisfaction. Patient verbalized understanding of diagnosis and treatments explained. To call sooner prior to next visit it any questions/concerns arise. 02/16/2025 Periodic limb movement disorder (ICD-10 - G47.61) #Thoracic back pain. Mild thoracic back pain x 3 days. No recent injury. Mild paraspinal muscle spasm on exam. He is requesting x-ray we will get today and follow-up pending results. He does have tizanidine at home and will try that at bedtime. Suspect may be secondary to golfing. Follow-up with any new or worsening symptoms. #Memory changes. scheduled in July with memory clinic #Compulsive buying. He has had an issue with compulsive spending for many years resulting in significant financial issues. He is currently on Celexa. Awaiting appt with psychiatry. #ENE. On CPAP/BiPAP. Followed by pulmonology. . #Periodic limb movement disorder. Tried the propranolol prescribed by Dr. Patterson he however did not like the side effects and has since discontinued. Will follow-up with Dr. Patterson next week. Case discussed with collaborating physician Moustapha Brooks who reviewed the assessment and plan. Chart, medications, labs, vital signs reviewed. Dictation was accomplished with the use of [employer] voice recognition software, prone to medical misidentifications [...] it any questions/concerns arise. PLAN OF TREATMENT Pending Test Test Name Order Date XR Thoracic/L-Spine 2 Views 02/16/2025 Next Appt Details Follow Up: 3 Months, Reason: SHERIDAN Provider Name:Samanta Thomas, 0 05/11/2025 10:00:00 AM, [address] [facility] [address], [place], [address], Progress Notes * ALAN KAM ADOB:[birth year] (69 yo M)Acc No.[id number]:02/16/2025 Progress Notes Patient:??ALAN KAM Provider:??Samanta Thomas PA-C :1955?Age:69 Y?Sex:Cris castro Date:02/16/2025 Address:[address] [place] [address], [place], [id number] Subjective: * Chief Complaints: * ?1. Pt here for follow up appt. No complaints. * HPI: ?Constitutional:? Alan is a 69-year-old male here today in follow-up. Overall he is doing well. Mood has been stable. Did get scheduled with the memory division July 23. Still waiting for psychiatry appointment. ?He did try taking the ropinirole after his last visit which was prescribed by Dr. Patterson for restless legs. He did not like how he felt on it was feeling significantly groggy. Has since stopped it. Does have follow-up with Dr. Patterson in the next week. ?He did see experience specialist this past week and had an MRI lumbar spine. Will be planning to do surgery in the near future. He was seen in [place] for second opinion. ?He also notes mid back pain for the past 3 days especially when laying down at night. No cough congestion or shortness of breath. Eventually he is able to get comfortable. No known injuries. However he did play golf last week and is wondering if that may have contributed. * ROS:?All Other Systems:?Review of Systems (ROS)??All others negative except those mentioned in HPI.? * Medical History:??Essential (primary) hypertension, Hyperlipidemia, unspecified, Unspecified atrial fibrillation, Hypothyroidism (acquired), Gout, unspecified, Diabetes mellitus due to underlying condition without complications, Prostate cancer. * Surgical History:??gastric l apband and removal [...] meals Orally Twice a day , Taking dilTIAZem HCl ER 300 MG Tablet Extended Release 24 Hour 1 capsule Orally Once a day , Taking Abiraterone Acetate 500 MG Tablet one tablet Oral once daily , Taking Nitroglycerin 0.[address] 1 TABLET BY MOUTH UNDER TONGUE As needed, Taking traMADol HCl 50 MG Tablet 1 tablet as needed dose increase on 04/01/24 Orally twice a day , Taking Levothyroxine Sodium 100 MCG Tablet TAKE [...] Tablet TAKE 1 TABLET DAILY , Taking Pantoprazole Sodium 40 mg Tablet Delayed Release TAKE 1 TABLET DAILY , Taking predniSONE 20 MG Tablet 2 tablets Orally Once a day , Taking tiZANidine HCl 2 MG Tablet 1 tablet at bedtime Orally once daily As needed, Notes to Pharmacist: as needed, Not-Taking Azithromycin 250 MG Tablet 2 tablets x1 day, then 1 tablet daily Orally , Medication List reviewed and reconciled with the patient Objective: * Vitals:??HR:84/min, BP:124/8 2mm Hg, Wt:274lbs, BMI:40.46Index, Ht: 69 in, Oxygen sat %:99%. * Physical Examination:?General: Well appearing, well nourished, age appropriate in no acute distress. Speaking in full, clear sentences. ?SKIN: Warm, dry intact. No rashes/lesions. ?HEENT: Normocephalic atraumatic. EOM intact. No nystagmus noted. PERRLA. ?LUNGS: Clear to auscultation bilaterally, no wheezes, rales or rhonchi ?CARDIAC: Regular rate and rhythm, no murmurs, rubs or gallops. ?Back: Midline tenderness. Mild left paraspinal spasm. No rash. No change in sensation or tenderness on palpation ?Extremities: Warm and well perfused. No edema noted. ?Neuro: CN II-XI grossly intact. Speaking in full sentences. Hearing intact. Assessment: * Assessment: 1.??Acute bilateral thoracic back pain - M54.6 (Primary)??2.??Memory changes - R41.3??3.??Compulsive buying - F42.8??4.??ENE on CPAP - G47.33??5.??Periodic limb movement disorder - G47.61?? #Thoracic back pain. Mild th oracic back pain x 3 days. No recent injury. Mild paraspinal muscle spasm on exam. He is requesting x-ray we will get today and follow-up pending results. He does have tizanidine at home and will try that at bedtime. Suspect may be secondary to golfing. Follow-up with any new or worsening symptoms. #Memory changes. scheduled in July with memory clinic #Compulsive buying. He has had an issue with compulsive spending for many years resulting in significant financial issues. He is currently on Celexa. Awaiting appt with psychiatry. #ENE. On CPAP/BiPAP. Followed by pulmonology. . #Periodic limb movement disorder. Tried the propranolol prescribed by Dr. Patterson he however did not like the side effects and has since discontinued. Will follow-up with Dr. Patterson next week. Case discussed with collaborating physician Moustapha Brooks who reviewed the assessment and plan. Chart, medications, labs, vital signs reviewed. Dictation was accomplished with the use of [employer] voice recognition software, prone to medical misidentifications [...] * Images: Billing Information: * Visit Code:?? [id number] Office Visit, Est Pt., Level 4. Modifiers: 25, SA * Procedure Codes:?? Care Plan Details* * Sign off status: Completed true * Provider:??Samanta Thomas PA-C Date:??01/30 History and Physical Notes * HPI (History of Present Illness) Category Sub-Category Detail Notes Category Not es Constitutional Alan is a 69-year-old male here today in follow-up. Overall he is doing well. Mood has been stable. Did get scheduled with the memory division July 23. Still waiting for psychiatry appointment. He did try taking the ropinirole after his last visit which was prescribed by Dr. Patterson for restless legs. He did not like how he felt on it was feeling significantly groggy. Has since stopped it. Does have follow-up with Dr. Patterson in the next week. He did see experience specialist this past week and had an MRI lumbar spine. Will be planning to do surgery in the near future. He was seen in [place] for second opinion. He also notes mid back pain for the past 3 days especially when laying down at night. No cough congestion or shortness of breath. Eventually he is able to get comfortable. No known injuries. However he did play golf last week and is wondering if that may have contributed. Physical Examination Category Sub-Category Detail Notes Section Note s General: Well appearing, well nourished, age appropriate in no acute distress. Speaking in full, clear sentences. SKIN: Warm, dry intact. No rashes/lesions. HEENT: Normocephalic atraumatic. EOM intact. No nystagmus noted. PERRLA. LUNGS: Clear to auscultation bilaterally, no wheezes, rales or rhonchi CARDIAC: Regular rate and rhythm, no murmurs, rubs or gallops. Back: Midline tenderness. Mild left paraspinal spasm. No rash. No change in sensation or tenderness on palpation Extremities: Warm and well perfused. No edema noted. Neuro: CN II-XI grossly intact. Speaking in full sentences. Hearing intact.
--- OUTSIDE RECORDS SUMMARY | 2025-03-02 17:13 | XMS_ITS | Clinical Summary ---
Author Organization [facility] Address [address] [place] [address] Phone Care Team Providers Care Shop Teacher Name Role Phone Kirstin Brooks MD Primary Care Provider Allergies No known active allergies Medications tiZANidine [...] Encounters Date Type Department Care Team Description 02/16/2025 11:31 AM EDT - 02/16/2025 11:59 PM EDT Hospital Encounter [facility] Xray [address] [place] [id number] Pain in thoracic spine Discharge Disposition: Home or Self Care 02/16/2025 11:10 AM EDT - 02/16/2025 11:59 PM EDT Hospital Encounter [facility] Xray [address] [place] [address] Pain in thoracic spine Discharge Disposition: Home or Self Care from Last 3 Months Immunizations Name Administration Dates Next Due [facility] SARS-CoV-2 COVID-19, mRNA, LNP-S, preservative free 01/12/2021,12/22/2020 [...] 10/14/2024 Diabetes: Annual GFR (Glomerular Filtration Rate) 01/19/2026 01/19/2025, 10/21/2024, 07/29/2024, Additional history exists Hypertension/CHF/CAD Annual BMP Blood Test 01/19/2026 01/19/2025, 10/21/2024, 07/29/2024, Additional history exists Colorectal Cancer Screening: [...] Procedure Name Priority Date/Time Associated Diagnosis Comments XR LUMBAR SPINE 2-3 VIEWS Routine 02/16/2025 11:36 AM EDT Pain in thoracic spine XR THORACIC SPINE 2 VIEWS Routine 02/16/2025 11:27 AM EDT Pain in thoracic spine CBC WITH AUTO DIFFERENTIAL Routine 01/11/2025 10:26 AM EST White blood cell disorder CBC AND DIFFERENTIAL Routine 01/11/2025 10:26 AM EST White blood cell disorder COLONOSCOPY Routine 10/14/2024 9:58 AM EST Hemorrhage of rectum and anus ANNUAL BMP BLOOD TEST Routine 07/29/2024 from Last 3 Months or Most Recently Relevant to Health Maintenance Results * XR Lumbar Spine 2-3 Views (02/16/2025 11:36 AM EDT) Anatomical Region Laterality Modality Spine, L-spine Radiographic Andie ging 02/16/2025 11:4 5 AM EDT Impressions 02/16/2025 11:49 AM EDT 1. No acute findings. 2. Grade 1, 6.1 mm anterior spondylolisthesis of L3 relative to L4 and grade 1, 4.9 mm anterior spondylolisthesis of L4 relative to L5. 3. No osteolytic or osteoblastic lesion is demonstrated. 4. There is degenerative disc disease at the L4-5 and L5-S1 levels. 5. Extensive atherosclerotic arterial calcification is noted. Code 17178 -------- FINAL REPORT -------- Dictated By: Gregory Reyes Dictated Date: 02/16/2025 11:45 ET Assigned Physician: Gregory Reyes Reviewed and Electronically Signed By: Gregory Reyes Signed Date: 02/16/2025 11:49 ET Workstation ID: [id number] Transcribed By: Self Edit Transcribed Date: 02/16/2025 11:45 ET Narrative 02/16/2025 11:49 AM EDT HISTORY: The patient is a 69-year-old male with history of prostate carcinoma, presenting with low back pain for several days, nontraumatic. FINDINGS: AP, lateral, and coned-down spot lateral views of the lumbosacral spine are obtained. The study demonstrates grade 1, 6.1 mm anterior spondylolisthesis of L3 relative to L4 and grade 1, 4.9 mm anterior spondylolisthesis of L4 relative to L5. No fracture is seen and no osteolytic or osteoblastic lesion is demonstrated. There is narrowing of the L4-5 and L5-S1 disc spaces with adjacent osteophytes consistent with degenerative disc disease. The remaining disc spaces are well-maintained. Extensive atherosclerotic arterial calcification is noted. Procedure Note Gregory Reyes MD - 02/16/2025 HISTORY: The patient is a 69-year-old male with history of prostatecarcinoma, presenting with low back pain for several days, nontraumatic. FINDINGS: AP, lateral, and coned-down spot lateral views of thelumbosacral spine are obtained. The study demonstrates grade 1, 6.1 mmanterior spondylolisthesis of L3 relative to L4 and grade 1, 4.9 mmanterior spondylolisthesis of L4 relative to L5. No fracture is seen andno osteolytic or osteoblastic lesion is demonstrated. There is narrowingof the L4-5 and L5-S1 disc spaces with adjacent osteophytes consistentwith degenerative disc disease. The remaining disc spaces arewell-maintained. Extensive atherosclerotic arterial calcification is noted. IMPRESSION: 1. No acute findings. 2. Grade 1, 6.1 mm anterior spondylolisthesis of L3 relative to L4 andgrade 1, 4.9 mm anterior spondylolisthesis of L4 relative to L5. 3. No osteolytic or osteoblastic lesion is demonstrated. 4. There is degenerative disc disease at the L4-5 and L5-S1 levels. 5. Extensive atherosclerotic arterial calcification is noted. Code 22936 -------- FINAL REPORT -------- Dictated By: Gregory Reyes Dictated Date: 02/16/2025 11:45 ET Assigned Physician: Gregory Reyes Reviewed and Electronically Signed By: Gregory Reyes Signed Date: 02/16/2025 11:49 ET Workstation ID: [id number] Transcribed By: Self Edit Transcribed Date: 02/16/2025 11:45 ET Samanta MONTESINOS IMG XR PROCEDURES Final Result * XR Thoracic Spine 2 Views (02/16/2025 11:27 AM EDT) Anatomical Region Laterality Modality Spine, T-spine Radiographic Andie ging 02/16/2025 11:4 2 AM EDT Impressions 02/16/2025 11:45 AM EDT 1. Moderately severe compression fracture of the T8 vertebral body new since 06/28/2020 but otherwise of unknown chronicity. If the patient has symptoms referable to this area, further evaluation with radionuclide bone scan or with MRI may be considered, especially if percutaneous augmentation is a therapeutic consideration. 2. No osteolytic or osteoblastic lesion is demonstrated. 3. There are degenerative osteophytes throughout the mid and lower thoracic spine. Code 32125 -------- FINAL REPORT -------- Dictated By: Gregory Reyes Dictated Date: 02/16/2025 11:42 ET Assigned Physician: Gregory Reyes Reviewed and Electronically Signed By: Gregory Reyes Signed Date: 02/16/2025 11:45 ET Workstation ID: [id number] Transcribed By: Self Edit Transcribed Date: 02/16/2025 11:42 ET Narrative 02/16/2025 11:45 AM EDT HISTORY: The patient is a 69-year-old male with history of prostate carcinoma, presenting with upper back pain for several days. FINDINGS: AP and lateral radiographs of the thoracic spine demonstrate normal alignment of the bony structures. There is a moderately severe compression fracture of the T8 vertebral body, a new finding since the chest radiograph performed 06/28/2020 but otherwise of unknown age. No other compression fracture is seen. No osteolytic or osteoblastic lesion is demonstrated. There are degenerative osteophytes throughout the mid and lower thoracic spine. Procedure Note Gregory Reyes MD - 02/16/2025 HISTORY: The patient is a 69-year-old male with history of prostatecarcinoma, presenting with upper back pain for several days. FINDINGS: AP and lateral radiographs of the thoracic spine demonstratenormal alignment of the bony structures. There is a moderately severecompression fracture of the T8 vertebral body, a new finding since thechest radiograph performed 06/28/2020 but otherwise of unknown age. Noother compression fracture is seen. No osteolytic or osteoblastic lesionis demonstrated. There are degenerative osteophytes throughout the mid andlower thoracic spine. IMPRESSION: 1. Moderately severe compression fracture of the T8 vertebral body newsince 06/28/2020 but otherwise of unknown chronicity. If the patient hassymptoms referable to this area, further evaluation with radionuclide bonescan or with MRI may be considered, especially if percutaneousaugmentation is a therapeutic consideration. 2. No osteolytic or osteoblastic lesion is demonstrated. 3. There are degenerative osteophytes throughout the mid and lowerthoracic spine. Code 14681 -------- FINAL REPORT -------- Dictated By: Gregory Reyes Dictated Date: 02/16/2025 11:42 ET Assigned Physician: Gregory Reyes Reviewed and Electronically Signed By: Gregory Reyes Signed Date: 02/16/2025 11:45 ET Workstation ID: [id number] Transcribed By: Self Edit Transcribed Date: 02/16/2025 11:42 ET Samanta MONTESINOS IMG XR PROCEDURES Final Result * (ABNORMAL) CBC auto differential (01/11/2025 10:26 AM EST) WBC 8.1 4.8 - 10.8 K/mcL LAB HEMETOLOGY METHOD 01/11/2025 11:03 AM [facility] RBC 4.20(L) 4.50 - 5.50 M/mcL LAB HEMETOLOGY METHOD 01/11/2025 11:03 AM [facility] Hemoglobin 12.6(L) 13.5 - 17.5 g/dL LAB HEMETOLOGY METHOD 01/11/2025 11:03 AM [facility] Hematocrit 40.3(L) 42.0 - 54.0 % LAB HEMETOLOGY METHOD 01/11/2025 11:03 AM [facility] MCV 96.4 79.0 - 98.0 FL LAB HEMETOLOGY METHOD 01/11/2025 11:03 AM [facility] MCH 30.1 27.0 - 32.0 pcg LAB HEMETOLOGY METHOD 01/11/2025 11:03 AM [facility] MCHC 31.3(L) 32.0 - 37.0 g/dL LAB HEMETOLOGY METHOD 01/11/2025 11:03 AM [facility] RDW 13.9 11.0 - 15.0 % LAB HEMETOLOGY METHOD 01/11/2025 11:03 AM [facility] Platelets 276 130 - 400 K/mcL LAB HEMETOLOGY METHOD 01/11/2025 11:03 AM [facility] MPV 9.9 7.0 - 11.0 FL LAB HEMETOLOGY METHOD 01/11/2025 11:03 AM [facility] NRBC 0.0 <1.0 % LAB HEMETOLOGY METHOD 01/11/2025 11:03 AM [facility] NRBC Absolute 0.00 <0.10 K/mcL LAB HEMETOLOGY METHOD 01/11/2025 11:03 AM [facility] Neutrophils Relative 77.1 % LAB HEMETOLOGY METHOD 01/11/2025 11:03 AM [facility] Lymphocytes Relative 11.0 % LAB HEMETOLOGY METHOD 01/11/2025 11:03 AM [facility] Monocytes Relative 8.7 % LAB HEMETOLOGY METHOD 01/11/2025 11:03 AM [facility] Eosinophils Relative 1.9 % LAB HEMETOLOGY METHOD 01/11/2025 11:03 AM [facility] Basophils Relative 0.9 % LAB HEMETOLOGY METHOD 01/11/2025 11:03 AM [facility] Immature Granulocytes Relative 0.4 % LAB HEMETOLOGY METHOD 01/11/2025 11:03 AM [facility] Neutrophils Absolute 6.24 1.50 - 7.00 K/mcL LAB HEMETOLOGY METHOD 01/11/2025 11:03 AM [facility] Lymphocytes Absolute 0.89(L) 1.00 - 5.00 K/mcL LAB HEMETOLOGY METHOD 01/11/2025 11:03 AM EST [facility] Monocytes Absolute 0.70 0.20 - 1.00 K/mcL LAB HEMETOLOGY METHOD 01/11/2025 11:03 AM EST [facility] Eosinophils Absolute 0.15 0.00 - 0.50 K/mcL LAB HEMETOLOGY METHOD 01/11/2025 11:03 AM EST [facility] Basophils Absolute 0.07 0.00 - 0.20 K/mcL LAB HEMETOLOGY METHOD 01/11/2025 11:03 AM EST [facility] Immature Granulocytes Absolute 0.03 0.00 - 0.03 K/mcL LAB HEMETOLOGY METHOD 01/11/2025 11:03 AM EST [facility] Blood Venous blood specimen / Unknown Venipuncture / Unknown 01/11/2025 10:26 AM EST 01/11/2025 10:53 AM EST us Samanta MONTESINOS LAB BLOOD ORDERABLES Final Resul t [facility] [address] [place] [address], * COLONOSCOPY Anesthesia - MAC; [facility] ENDOSCOPY (10/14/2024 9:58 AM EST) Anatomical [...] 5 days. Narrative 10/14/2024 10:01 AM EST [facility] GI Patient Name: Alan Tamez Procedure Date: [...] verified by the physician, the nurse, the veneer jointer returner ? and the school bus technician in the pre-procedure area in the [...] Procedure Code(s): ? --- Professional --- ? 85362, 59, Colonoscopy, flexible; with control of ? bleeding, any method ? 65627, Colonoscopy, flexible; with removal of ? tumor(s), polyp(s), or other lesion(s) by snare ? technique Diagnosis Code(s): ? --- Professional --- ? D12.3, Benign neoplasm of transverse colon (hepatic ? flexure or splenic flexure) ? K92.1, Melena (includes Hematochezia) CPT copyright 2020 [employer]. All rights reserved. The codes documented in this report are preliminary and upon skiver blockers review may be revised to meet current compliance requirements. Garcia Vigil MD 10/14/2024 10:01:37 AM This report has been signed electronically.Garcia Vigil MD Number of Addenda: 0 Note Initiated On: 10/14/2024 9:30 AM Scope Withdrawal Time: 0 hours 17 minutes 21 seconds Scope In: 9:36:33 AM Scope Out: 9:57:43 AM ? Endoscopy Department at [facility] - [address] [place] [address], ? [place] [address] Procedure Note Garcia Vigil MD - 10/14/2024 [facility] Patient Name: Alan Tamez Procedure Date: 10/14/2024 9:30 AM Date of : 1955 Age: 69 Room: ROOM 17 Gender: Male Note Status: Finalized Attending MD: Garcia Vigil MD, Procedure Date No Time: 10/14/2024 Procedure: Colonoscopy Indications: Evaluation of unexplained GI bleeding presentingwith Hematochezia Providers: Garcia Vigil MD Referring MD: Garcia iVgil MD Medicines: Monitored Anesthesia Care Complications: No [...] the physician, the nurse, theanesthetist and the school bus technician in the pre-procedure area in the [...] loss wasminimal. Procedure Code(s): --- Professional --- 67544, 59, Colonoscopy, flexible; with control of bleeding, any method 74607, Colonoscopy, flexible; with removal of tumor(s), polyp(s), or other lesion(s) by snare technique Diagnosis Code(s): --- Professional --- D12.3, Benign neoplasm of transverse colon (hepatic flexure or splenic flexure) K92.1, Melena (includes Hematochezia) CPT copyright 2020 [employer]. All rights reserved. The codes documented in this report are preliminary and upon skiver blockers reviewmay be revised to meet current compliance requirements. Garcia Vigil MD 10/14/2024 10:01:37 AM This report has been signed electronically.Garcia Vigil MD Number of Addenda: 0 Note Initiated On: 10/14/2024 9:30 AM Scope Withdrawal Time: 0 hours 17 minutes 21 seconds Scope In: 9:36:33 AM Scope Out: 9:57:43 AM Endoscopy Department at [facility] - [address] [place] [phone] IMPRESSION: - Three 2 to 6 mm polyps in the transverse colon, removed with a cold snare. Resected andretrieved. - Diverticulosis in the sigmoid colon, in the descending colon and in the ascending colon. - Internal hemorrhoids. Recommendation: - Discharge patient to home. - Resume Coumadin (warfarin) at prior dose in 5days. Garcia Vigil MD GI~PROCEDURE ORDERABLES Fin al Result from Last 3 Months or Most Recently Relevant to Health Maintenance Insurance MEDICARE [facility] [email or web address] [[email or web address]] Care Teams Shop Teacher Relationship Specialty Start Date End Date Kirstin Brooks MD [address] [place] [address] MAXIM ANDERSON [phone] PCP - General Internal Medicine 01/11/25
--- OUTSIDE RECORDS SUMMARY | 2025-03-02 17:13 | XMS_ITS ---
Author Organization [facility] Address [address] [place] [address] Care Team Providers Care Substance Addiction Coordinator Name Role Phone Samanta Thomas Unavailable [phone] REASON FOR VISIT xray results- lumbar Encounters Encounter Location Date Provider Diagnosis [address] [facility] [facility] [address] [place] [address] 02/16/2025 Samanta Thomas PLAN OF TREATMENT Next Appt Details Provider Name:Samanta Thomas, 0 05/11/2025 10:00:00 AM, [address], [place], [address], Progress Notes * JOSE MANUEL KAM ADOB:[birth year] (69 yo M)Acc No.[id number]:02/16/2025 Patient:??JOSE MANUEL KAM :1955?Age:69 Y?Sex:Cris castro Address:[address] [place] [id number] * true * Date:??
== END 2025-03-02 14:53 | disposition home or self-care (01) ==
LOC: HO.ACS 14:23
PROVIDERS: PCP Internal Medicine; Visit Provider Internal Medicine Medical Oncology
DX: Z79.01 Long term (current) use of anticoagulants (principal)

== ENCOUNTER → 2025-03-02 14:23 | Outpatient (BNVA) | payer MEDICARE, SELFPAY | PROVIDERS: PCP Internal Medicine; Visit Provider Internal Medicine Medical Oncology | DX: I48.92 Unspecified atrial flutter (principal); Z79.01 Long term (current) use of anticoagulants; Z51.81 Encounter for therapeutic drug level monitoring | CPT/HCPCS: 85610; 99211 ==

== ENCOUNTER → 2025-03-16 13:35 | Outpatient (BNVA) | payer MEDICARE, SELFPAY | PROVIDERS: PCP Internal Medicine; Visit Provider Internal Medicine Medical Oncology | DX: I48.92 Unspecified atrial flutter (principal); Z51.81 Encounter for therapeutic drug level monitoring; Z79.01 Long term (current) use of anticoagulants | CPT/HCPCS: 85610; 99211 ==

== ENCOUNTER 2025-03-29 13:35 | Outpatient (AMB) | payer MEDICARE, SELFPAY ==
[2025-03-29 14:13] LABS: Prothrombin Time Whole Bld POC 16.7 sec (11.1-13.5); ~PT, ~INR - Anti Coag Clinic 1.4 (0.9-1.1)
--- NOTE | 2025-03-29 14:21 | MHC.OFFVISCO ---
Intake Intake Visit Reasons: Anticoagulation Allergies No Known Allergies Allergy (Verified 03/29/25 14:07) Medication List - Last Reconciled 03/29/25 by Donna Archer, RN abiraterone 1,000 mg PO DAILY [CALCIUM PO] cholecalciferol (vitamin D3) (Vitamin D3) PO citalopram 20 mg PO DAILY cyclobenzaprine 5 mg PO BEDTIME PRN diltiazem HCl CD 300 mg PO DAILY furosemide 40 mg PO DAILY levothyroxine 100 mcg PO DAILY losartan 100 mg PO DAILY metformin mg PO nitroglycerin 0.4 mg sublingual oxycodone mg PO pantoprazole 40 mg PO DAILY pravastatin mg PO prednisone 5 mg PO DAILY tizanidine 2 mg PO BEDTIME tramadol 50 mg PO BID PRN warfarin (Jantoven) 5 mg See Protocol PO DAILY Nursing Note INR: 1.4?out of therapeutic range 2-3 S/P spinal fusion 1 week ago on 03/22/25 after a 5 day hold of warfarin. Restarted warfarin on 03/23/25 at pt's usual dose, no increase. Medications and supplements reviewed Patient status: feels well Medications or supplements: no changes Diet: usual diet but has been avoiding greens Denies any signs and symptoms of bleeding or clotting or unusual bruising Bleeding, bruising, clotting discussed Nutritional guidance given: continue to avoid greens until INR therapeutic Dose: increase today's dose to 5mg (2.5mg) then usual dose of 5mg, then increase the next day to 5mg (2.5mg), then usual dose of 5mg X 4 days and 2.5mg X 3 days (M/W/) F/U INR Date : 1 week?? Patient verbalizing understanding of instructions given. T/C to Dr Kirstin Brooks's office to report critical INR, dosing and next retest date. Message left on answering machine with the medical technologist prn to Dr Brooks. Coding Level of Care Code Est Patient Level 1 Diagnoses Current use of anticoagulant therapy Z79.01 Assessment & Plan Assessment & Plan (1) Current use of anticoagulant therapy: Code(s): Z79.01 - [facility] (current) use of anticoagulants Category: Medical
--- OUTSIDE RECORDS SUMMARY | 2025-03-29 16:14 | XMS_ITS ---
Author Organization [facility] Address [address] [place] [phone] Care Team Providers Care Scientific Advisor Name Role Phone Samanta Thomas Unavailable [phone] ALLERGIES No Known Allergies REASON FOR VISIT patient seen in office for urgent visit pt c/o persistent pain r/t spinal fracture . patient statedpain medication is not helping MEDICATIONS Medication SIG (Take, Route, Frequency, Duration) Notes Start Date End Date Status Warfarin Sodium 5 mg TAKE 1 TABLET DAILY Active Pantoprazole Sodium 40 mg TAKE 1 TABLET DAILY Active predniSONE 20 MG 2 tablets Orally Once a day for 5 days 01/16/2025 Not-Taking tiZANidine HCl 2 MG 1 tablet at bedtime Orally once daily for 30 days as needed Active Azithromycin 250 MG 2 tablets x1 day, then 1 tablet daily Orally for 5 days 01/16/2025 Not-Taking Citalopram Hydrobromide 20 mg TAKE 1 TABLET DAILY orally once a day for 90 days Active metFORMIN HCl 500 mg TAKE 1 TABLET DAILY WITH A MEAL Active Losartan Potassium 100 mg TAKE 1 TABLET DAILY Active Furosemide 40 mg TAKE 1 TABLET DAILY Active Pravastatin Sodium 40 mg TAKE 1 TABLET D AILY orally once a day for 90 days Active dilTIAZem HCl ER 300 MG 1 capsule Orally Once a day Active Abiraterone Acetate 500 MG one tablet Oral once daily for 30 days Active Nitroglycerin 0.[address] 1 TABLET BY MOUTH UNDER TONGUE for 30 days Active traMADol HCl 50 MG 1 tablet as needed dose increase on 04/01/24 Orally twice a day for 30 days 04/14/2024 Active Levothyroxine Sodium 100 MCG TAKE 1 TABLET DAILY IN THE MORNING ON AN EMPTY STOMACH Active Vitamin D 50 MCG (1999 UT) 1 tablet Orally Once a day Active Calcium 600 MG 1 tablet with meals Orally Twice a day Active Journavx 50 MG as directed Orally for 10 days 03/04/2025 Active predniSONE 5 MG 1 tablet Orally Once a day Active SOCIAL HISTORY Tobacco Use: Social History Observation Description Date Details (start date - stop date) Former Smoker NA - NA Sex Assigned At : Social History Observation Description Sex Assigned At Unknown Tobacco Use/Smoking Question Answer Notes Are you a former smoker VITAL SIGNS Blood pressure systolic 130 mm Hg 03/04/20 25 Blood pressure diastolic 78 mm Hg 025 Heart Rate 70 /min 03/04/2025 Height 69 in 03/04/2025 Weight 268 lbs 03/04/2025 BMI 39.57 kg/m2 03/04/2025 Oximetry 98 % 03/04/2025 Encounters Encounter Location Date Provider Diagnosis [address] [facility] [address] [place] [address] 03/04/2025 Samanta Thomas Compression fracture of T8 vertebra, initial encounter S22.060A ASSESSMENTS Encounter Date Diagnosis Assessment Notes Treatment Notes Treatment Clinical Notes Section Notes 03/04/2025 Compression fracture of T8 vertebra, initial encounter (ICD-10 - S22.060A) #Compression fracture. T8. CT ordered by specialist in [place] review. Planning for Kyphoplasty in [place]- awaiting appt. Will discuss with his specialist this afternoon. Tramadol ineffective for pain control. Unfortunately, he is traveling to [place] Saturday with his grandchildren to go to [place]. Discussed No rides, lifting etc. He will be using a scooter while there. WIll trial Journavx for pain control. Discussed signs/symptoms to monitor for. He will let me know once he has kyphoplasty appt. Case discussed with collaborating physician Moustapha Brooks who reviewed the assessment and plan. Chart, medications, labs, vital signs reviewed. Dictation was accomplished with the use of [employer] voice recognition software, prone to medical misidentifications [...] it any questions/concerns arise. PLAN OF TREATMENT Medication Medication Name Sig Start Date Stop Date Notes Journavx 50 MG as directed Orally for 10 days 03/04/2025 Next Appt Details Provider Name:Samanta Thomas, 0 05/11/2025 10:00:00 AM, [address] [facility], [facility] [address], [place], [address], Progress Notes * ALAN KAM ADOB:[birth year] (69 yo M)Acc No.[id number]:03/04/2025 Progress Notes Patient:??ALAN KAM A Provider:??Samanta Thomas PA-C :1955?Age:69 Y?Sex:Ma le Date:03/04/2025 Address:[address] [place], [place] [id number] Subjective: * Chief Complaints: * ?1. Patient seen in [place] for urgent visit pt c/o persistent pain r/t spinal fracture . patient stated pain medication is not helping. * HPI: ?Constitutional:? Alan is a 69-year-old male here today in follow-up for back pain. I saw him 2 weeks ago with mid back pain after playing golf. No specific injury. We did get xrays, which showed T8 compression fracture. When we reviewed the results, he did not think this was new, pain was improving and had no point tenderness. SInce then, had increased pain and spoke with his specialist in [place]. They ordered CT of thoracic spine, which shows moderate T8 compression fracture. The sales order specialist in [place] at [facility] because he has chronic lumbar spine pain and they were planning to do surgery. He is now waiting to discuss with them in regards to scheduling kyphoplasty. He plans to speak with them this afternoon. He has been on tramadol for chronic pain however this has not been helpful for his current thoracic pain. He will be traveling to [place] on Saturday to go to [place] with his grandchildren. Be able to do the kyphoplasty prior to his trip. He is planning on renting a scooter while there. We discussed minimal activity and no rides. Other pain management options. * ROS:?All Other Systems:?Review of Systems (ROS)??All [...] [facility] pain mgmt epidural June 2024. * Hospitalization/Major Diagno stic Procedure:??Denies Past Hospitalization. * Family History:??Father: dec eased.??Mother: , diagnosed [...] Release TAKE 1 TABLET DAILY , Taking tiZANidine HCl 2 MG Tablet 1 tablet at bedtime Orally once daily As needed, Notes to Pharmacist: as needed, Not-Taking predniSONE 20 MG Tablet 2 tablets Orally Once a day , Not- Taking Azithromycin 250 MG Tablet 2 tablets x1 day, then 1 tablet daily Orally , Medication List reviewed and reconciled with the patient * Allergies:??N.K.D.A. Objective: * Vitals:??HR:70/min, BP:130/7 8mm Hg, Wt:268lbs, BMI:39.57Index, Ht: 69 in, Oxygen sat %:98%. * Physical Examination:?General: Well appearing, well nourished, age appropriate in no acute distress. Speaking in full, clear sentences. ?SKIN: Warm, dry intact. No rashes/lesions. ?HEENT: Normocephalic atraumatic. EOM intact. No nystagmus noted. PERRLA. ?LUNGS: Clear to auscultation bilaterally, no wheezes, rales or rhonchi ?CARDIAC: Regular rate and rhythm, no murmurs, rubs or gallops. ?Back: no Midline tenderness. Mild left paraspinal spasm. No rash. No change in sensation or tenderness on palpation ?Extremities: Warm and well perfused. No edema noted. strength 5/5 LE bilaterally ?Neuro: CN II-XI grossly intact. Speaking in full sentences. Hearing intact. Assessment: * Assessment: 1.??Compression fracture of T8 vertebra, initial encounter - S22.060A (Primary)?? #Compression fracture. T8. C T ordered by specialist in [facility]. Planning for Kyphoplasty in [place]- awaiting appt. Will discuss with his specialist this afternoon. Tramadol ineffective for pain control. Unfortunately, he is traveling to [place] Saturday with his grandchildren to go to [place]. Discussed No rides, lifting etc. He will be using a scooter while there. WIll trial Journavx for pain control. Discussed signs/symptoms to monitor for. He will let me know once he has kyphoplasty appt. Case discussed with collaborating physician Moustapha Brooks who reviewed the assessment and plan. Chart, medications, labs, vital signs reviewed. Dictation was accomplished with the use of [employer] voice recognition software, prone to medical misidentifications [...] it any questions/concerns arise. Plan: * Treatment: Care Plan: * Problems:?? * Images: Billing Information: * Visit Code:?? 59386 Office Visit, Est Pt., Level 4. Modifiers: SA * Procedure Codes:?? Care Plan Details* * Sign off status: Completed true * Provider:??Samanta Thomas PA-C Date:??01/2025 History and Physical Notes * HPI (History of Present Illness) Category Sub-Category Detail Notes Category Not es Constitutional Alan is a [age]-year-old male here today in follow-up for back pain. I saw him 2 weeks ago with mid back pain after playing golf. No specific injury. We did get xrays, which showed T8 compression fracture. When we reviewed the results, he did not think this was new, pain was improving and had no point tenderness. SInce then, had increased pain and spoke with his specialist in [place]. They ordered CT of thoracic spine, which shows moderate T8 compression fracture. The sales order specialist in [place] at [facility] because he has chronic lumbar spine pain and they were planning to do surgery. He is now waiting to discuss with them in regards to scheduling kyphoplasty. He plans to speak with them this afternoon. He has been on tramadol for chronic pain however this has not been helpful for his current thoracic pain. He will be traveling to [place] on Saturday to go to [place] with his grandchildren. Be able to do the kyphoplasty prior to his trip. He is planning on renting a scooter while there. We discussed minimal activity and no rides. Other pain management options. Physical Examination Category Sub-Category Detail Notes Section Note s General: Well appearing, well nourished, age appropriate in no acute distress. Speaking in full, clear sentences. SKIN: Warm, dry intact. No rashes/lesions. HEENT: Normocephalic atraumatic. EOM intact. No nystagmus noted. PERRLA. LUNGS: Clear to auscultation bilaterally, no wheezes, rales or rhonchi CARDIAC: Regular rate and rhythm, no murmurs, rubs or gallops. Back: no Midline tenderness. Mild left paraspinal spasm. No rash. No change in sensation or tenderness on palpation Extremities: Warm and well perfused. No edema noted. strength 5/5 LE bilaterally Neuro: CN II-XI grossly intact. Speaking in full sentences. Hearing intact.
--- OUTSIDE RECORDS SUMMARY | 2025-03-29 16:14 | XMS_ITS | Clinical Summary ---
Author Organization [facility] Address [address] [place] [address] Care Team Providers Care Cuff Setter Lockstitch Name Role Phone Kirstin Brooks MD Primary Care Provider [phone] Allergies Active Allergy Reactions Criticality Noted Date [...] Chronic atrial fibrillation 01/26/2016 HLD (hyperlipidemia) 01/26/2016 NEE on CPAP 01/26/2016 DM2 (diabetes mellitus, type [...] age to complete this topic Care Teams Cuff Setter Lockstitch Relationship Specialty Start Date End Date Kirstin Brooks MD [address] [place] [address] PCP - General Internal Medicine 03/11/19 KIM LANDAVERDE Referring Physician Orthopedic Surgery 12/26/15
--- OUTSIDE RECORDS SUMMARY | 2025-03-29 16:14 | XMS_ITS | Clinical Summary ---
Author Organization [facility] Address [address] [place] [address] Phone Care Team Providers Care Lumber Sticker Name Role Phone Kirstin Brooks MD Primary Care Provider [phone] Allergies No known active allergies Medications tiZANidine [...] 08/28/2021 Heart failure with preserved ejection fraction (CMS/[facility] V24, CMS/[facility] V28) 08/28/2021 HLD (hyperlipidemia) 02/21/2021 PVC's (premature ventricular contractions) 02/21 HTN (hypertension) 12/29/2020 PAF (paroxysmal atrial fibri llation) (CMS/HCC V24, CMS/[facility] V28) 12/29/2020 Type II or unspecified type diabetes mellitus with ketoacidosis, uncontrolled(250.12) (CMS/HCC V24, CMS/HCC V28) 12/29/2020 Encounters Date Type Department Care Team Description 03/09/2025 Telephone [facility] [address] [facility] [address] [place] [address] Luis Montoya MD Procedure (Coumadin hold?) 02/16/2025 11:31 AM EDT - 02/16/2025 11:59 PM EDT Hospital Encounter [facility] Xray [address] [place] [phone] Pain in thoracic spine Discharge Disposition: Home or Self Care 02/16/2025 11:10 AM EDT - 02/16/2025 11:59 PM EDT Hospital Encounter [facility] [place] [id number] Pain in thoracic spine Discharge Disposition: Home or Self Care from Last 3 Months Immunizations Name Administration Dates Next Due Pfizer SARS-CoV-2 COVID-19, mRNA, LNP-S, preservative free 01/12/2021,12/22/2020 Surgical History Surgery Date Site/Laterality Comments GASTRIC BAND ADJUSTMENT and removal CARDIOVERSION CARDIAC ABLATION CERVICAL FUSION Medical History Medical History Date Comments Hypertension Hyperlipidemia Diabetes mellitus [place] [place] [facility] [place]28) GERD (gastroesophageal reflux disease) Atrial fibrillation ([facility] [place], [facility] [place]28) Sleep apnea COPD (chronic obstructive pulmonary disease) ([facility] V24, [facility] [place]28) Asthma Prostate cancer ([facility] [place], [facility] V28) Social History Tobacco Use Types Packs/Day Years [...] Diabetes: Blood Sugar Control Test (HGBA1C) 11/16/2022 COVID-19 Vaccine (8 - Pfizer risk season) 2025 09/15/2024, 12/06/2023, 09/03/2022, Additional history exists Falls Risk Assessment 10/14/2025 10/14/2024 Diabetes: Annual GFR (Glomerular Filtration Rate) 01/19/2026 01/19/2025, 10/21/2024, 07/29/2024, Additional history exists Hypertension/CHF/CAD Annual BMP Blood Test 01/19/2026 01/19/2025, 10/21/2024, 07/29/2024, Additional history exists Colorectal Cancer Screening: Colonoscopy 10/14/2029 10/14/2024 RSV Immunization Adult Patients Completed 10/29/2023 Zoster Vaccines Completed 06/09/2024, 04/07/2024 Influenza Vaccine Completed 09/15/2024, , 09/03/2022, Additional [...] age to complete this topic Meningococcal B Vaccine Aged Out No l onger eligible based on patient's age to complete [...] Extensive atherosclerotic arterial calcification is noted. Code 38980 -------- FINAL REPORT -------- Dictated By: Gregory Reyes Dictated Date: 02/16/2025 11:45 ET Assigned Physician: Gregory Reyes Reviewed and Electronically Signed By: Gregory Reyes Signed Date: 02/16/2025 11:49 ET Workstation ID: [id number] Transcribed By: Self Edit Transcribed Date: 02/16/2025 [...] Extensive atherosclerotic arterial calcification is noted. Code 03310 -------- FINAL REPORT -------- Dictated By: Gregory Reyes Dictated Date: 02/16/2025 11:45 ET Assigned Physician: Gregory Reyes Reviewed and Electronically Signed By: Gregory Reyes Signed Date: 02/16/2025 11:49 ET Workstation ID: [id number] Transcribed By: Self Edit Transcribed Date: 02/16/2025 11:45 ET Samanta Antoniaemilesara [facility] IM[facility] XR PROCEDURES Final Result * XR [...] the mid and lower thoracic spine. Code 43693 -------- FINAL REPORT -------- Dictated By: Gregory Reyes Dictated Date: 02/16/2025 11:42 ET Assigned Physician: Gregory Reyes Reviewed and Electronically Signed By: Gregory Reyes Signed Date: 02/16/2025 11:45 ET Workstation ID: [id number] Transcribed By: Self Edit Transcribed Date: 02/16/2025 [...] throughout the mid and lowerthoracic spine. Code 58191 -------- FINAL REPORT -------- Dictated By: Gregory Reyes Dictated Date: 02/16/2025 11:42 ET Assigned Physician: Gregory Reyes Reviewed and Electronically Signed By: Gregory Reyes Signed Date: 02/16/2025 11:45 ET Workstation ID: [id number] Transcribed By: Self Edit Transcribed Date: 02/16/2025 11:42 ET Samanta MONTESINOS IMG XR PROCEDURES Final Result * (ABNORMAL) CBC auto differential (01/11/2025 10:26 AM EST) WBC 8.1 4.8 - 10.8 K/[facility] LAB HEMETOLOGY METHOD 01/11/2025 11:03 AM EST [facility] RBC 4.20(L) 4.50 - 5.50 M/[facility] LAB HEMETOLOGY METHOD 01/11/2025 11:03 AM [facility] Hemoglobin 12.6(L) 13.5 - 17.5 g/dL LAB HEMETOLOGY METHOD 01/11/2025 11:03 AM [facility] Hematocrit 40.3(L) 42.0 - 54.0 % LAB HEMETOLOGY METHOD 01/11/2025 11:03 AM [facility] MCV 96.4 79.0 - 98.0 FL LAB HEMETOLOGY METHOD 01/11/2025 11:03 AM [facility] MCH 30.1 27.0 - 32.0 pcg LAB HEMETOLOGY METHOD 01/11/2025 11:03 AM [facility] MCHC 31.3(L) 32.0 - 37.0 g/dL LAB HEMETOLOGY METHOD 01/11/2025 11:03 AM [facility] RDW 13.9 11.0 - 15.0 % LAB HEMETOLOGY METHOD 01/11/2025 11:03 AM [facility] Platelets 276 130 - 400 K/mcL LAB HEMETOLOGY METHOD 01/11/2025 11:03 AM [facility] MPV 9.9 7.0 - 11.0 FL LAB HEMETOLOGY METHOD 01/11/2025 11:03 AM [facility] NRBC 0.0 <1.0 % LAB HEMETOLOGY METHOD 01/11/2025 11:03 AM [facility] NRBC Absolute 0.00 <0.10 K/mcL LAB HEMETOLOGY METHOD 01/11/2025 11:03 AM [facility] Neutrophils Relative 77.1 % LAB HEMETOLOGY METHOD 01/11/2025 11:03 AM [facility] Lymphocytes Relative 11.0 % LAB HEMETOLOGY METHOD 01/11/2025 11:03 AM [facility] Monocytes Relative 8.7 % LAB HEMETOLOGY METHOD 01/11/2025 11:03 AM [facility] Eosinophils Relative 1.9 % LAB HEMETOLOGY METHOD 01/11/2025 11:03 AM EST [facility] Basophils Relative 0.9 % LAB HEMETOLOGY METHOD 01/11/2025 11:03 AM [facility] Immature Granulocytes Relative 0.4 % LAB HEMETOLOGY METHOD 01/11/2025 11:03 AM [facility] Neutrophils Absolute 6.24 1.50 - 7.00 K/mcL LAB HEMETOLOGY METHOD 01/11/2025 11:03 AM [facility] Lymphocytes Absolute 0.89(L) 1.00 - 5.00 K/mcL LAB HEMETOLOGY METHOD 01/11/2025 11:03 AM [facility] Monocytes Absolute 0.70 0.20 - 1.00 K/mcL LAB HEMETOLOGY METHOD 01/11/2025 11:03 AM [facility] Eosinophils Absolute 0.15 0.00 - 0.50 K/mcL LAB HEMETOLOGY METHOD 01/11/2025 11:03 AM [facility] Basophils Absolute 0.07 0.00 - 0.20 K/mcL LAB HEMETOLOGY METHOD 01/11/2025 11:03 AM [facility] Immature Granulocytes Absolute 0.03 0.00 - 0.03 K/mcL LAB HEMETOLOGY METHOD 01/11/2025 11:03 AM [facility] Blood Venous blood specimen / Unknown Venipuncture / Unknown 01/11/2025 10:26 AM EST 01/11/2025 10:53 AM EST us Samanta Vasquezk [facility] BLOOD ORDERABLES Final Resul t [facility] [address] [place] [address], * COLONOSCOPY Anesthesia - MAC; [facility] ENDOSCOPY (10/14/2024 9:58 AM EST) [...] 5 days. Narrative 10/14/2024 10:01 AM EST [facility] GI Patient Name: Alan Tamez [...] verified by the physician, the nurse, the accounts receivable specialist ? and the substance abuse technician in the pre-procedure area in the [...] Procedure Code(s): ? --- Professional --- ? 96117, 59, Colonoscopy, flexible; with control of ? bleeding, any method ? 47226, Colonoscopy, flexible; with removal of ? tumor(s), polyp(s), or other lesion(s) by snare ? technique Diagnosis Code(s): ? --- Professional --- ? D12.3, Benign neoplasm of transverse colon (hepatic ? flexure or splenic flexure) ? K92.1, Melena (includes Hematochezia) CPT copyright 2020 [employer]. All rights reserved. The codes documented in this report are preliminary and upon contingents supervisor review may be revised to meet current compliance requirements. Garcia Vigil MD 10/14/2024 10:01:37 AM This report has been signed electronically.Garcia Vigil MD Number of Addenda: 0 Note Initiated On: 10/14/2024 9:30 AM Scope Withdrawal Time: 0 hours 17 minutes 21 seconds Scope In: 9:36:33 AM Scope Out: 9:57:43 AM ? Endoscopy Department at [facility] - [address] [place] [address], ? [place] [address] Procedure Note Garcia Vigil MD - 10/14/2024 [facility] GI Patient Name: Alan Tamez [...] the physician, the nurse, theanesthetist and the substance abuse technician in the pre-procedure area in the [...] loss wasminimal. Procedure Code(s): --- Professional --- 48455, 59, Colonoscopy, flexible; with control of bleeding, any method 67476, Colonoscopy, flexible; with removal of tumor(s), polyp(s), or other lesion(s) by snare technique Diagnosis Code(s): --- Professional --- D12.3, Benign neoplasm of transverse colon (hepatic flexure or splenic flexure) K92.1, Melena (includes Hematochezia) CPT copyright 2020 [employer]. All rights reserved. The codes documented in this report are preliminary and upon contingents supervisor reviewmay be revised to meet current compliance requirements. Garcia Vigil MD 10/14/2024 10:01:37 AM This report has been signed electronically.Garcia Vigil MD Number of Addenda: 0 Note Initiated On: 10/14/2024 9:30 AM Scope Withdrawal Time: 0 hours 17 minutes 21 seconds Scope In: 9:36:33 AM Scope Out: 9:57:43 AM Endoscopy Department at [address] [address] IMPRESSION: - Three 2 to 6 mm [...] Recently Relevant to Health Maintenance [place] [address] MEDICARE [facility] [address] Care Teams Lumber Sticker Relationship Specialty Start Date End Date Kirstin Brooks MD [address] [place] [address] MAXIM ANDERSON [id number] PCP - General Internal Medicine 01/11/25
--- OUTSIDE RECORDS SUMMARY | 2025-03-29 16:14 | XMS_ITS ---
Author Organization [facility] Address [address] [place] [address] Care Team Providers Care Insurance Account Specialist Name Role Phone Samanta Thomas Unavailable [phone] REASON FOR VISIT critical INR Encounters Encounter Location Date Provider Diagnosis [address] [facility] [address] [place] [address] 03/29/2025 Samantaabigail Knightosito PLAN OF TREATMENT Next Appt Details Provider Name:Samanta Thomas, 0 05/11/2025 10:00:00 AM, [address], [place], [address], Progress Notes * JOSE MANUEL KAM ADOB:[birth year] (69 yo M)Acc No.[id number]:03/29/2025 Patient:??JOSE MANUEL KAM :1955?Age:69 Y?Sex:Cris castro Address:[address] [place] [address] * true * Date:??
--- OUTSIDE RECORDS SUMMARY | 2025-03-29 16:14 | XMS_ITS | Patient Health Record ---
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 Name Role Phone Caridad Conn Unavailable [phone] MARIBELL BROOKS Unavailable [phone] NIELSMoustapha CALVIN Unavailable [phone] TIERRA MICHELLE Unavailable [phone] DELMAR ROBLES Unavailable [phone] ALLERGIES No Known Allergies RESULTS Component Value Reference Range Notes Vitamin [id number] Reviewed date:01/07/2025 08:59:09 AM Interpretation: Performing Lab:[facility], [address] [place] [address], Phone - [phone], Director - MDJodry Notes/Report: Vitamin B12 [phone] pg/mL Priscilla Perez CMP14 Default A hand-written panel/profile was received from your office. In accordance with the [facility] Ambiguous Test Code Policy dated June 2003, we have completed your order by using the closest currently or formerly recognized AMA panel. We have assigned Comprehensive Metabolic Panel (14), Test Code #333676 to this request. If this is not the testing you wished to receive on this specimen, please contact the [facility] and Android Client Inquiry/Technical Services Department to clarify the test order. We appreciate your business. TSH-[id number] Reviewed date:01/07/2025 08:59:43 AM Interpretation: Performing Lab:[facility], [address] [place] [address], [place], Phone - [phone], Director - MDJodry Notes/Report: TSH 1.810 0.450-4.500 uIU/mL CBC With Differential/Platel et-[id number] Reviewed date:01/07/2025 02:46:41 PM Interpretation: Performing Lab:[facility], [address] [facility], Phone - [phone], Director - Shannan Notes/Report: WBC 11.5 3.4-10.8 x10E3/uL RBC 4.49 4.14-5.80 x10E6/uL Hemoglobin 13.5 13.0-17.7 g/dL Hematocrit 42.3 37.5-51.0 % MCV 94 79-97 fL MCH 30.1 26.6-33.0 pg MCHC 31.9 31.5-35.7 g/dL RDW 13.0 11.6-15.4 % Platelets 299 150-450 x10E3/uL Neutrophils 86 Not Estab. % Lymphs 6 Not Estab. % Monocytes 6 Not Estab. % Eos 1 Not Estab. % Basos 1 Not Estab. % Immature Cells Neutrophils (Absolute) 9.9 1.4-7.0 x10E3/uL Lymphs (Absolute) 0.7 0.7-3.1 x10E3/uL Monocytes(Absolute) 0.6 0.1-0.9 x10E3/uL Eos (Absolute) 0.1 0.0-0.4 x10E3/uL Baso (Absolute) 0.1 0.0-0.2 x10E3/uL Immature Granulocytes 0 Not Estab. % Immature Grans (Abs) 0.0 0.0-0.1 x10E3/uL NRBC Hematology Comments: CBC With Differential/Platel et-[id number] Reviewed date:2024 11:21:55 AM Interpretation: Performing [facility], [address] [facility], Phone - [phone], Director - Shannan Notes/Report: WBC 9.9 3.4-10.8 [...] (Abs) 0.0 0.0-0.1 x10E3/uL NRBC Hematology Comments: CBC With Differential/Platel et-[id number] Reviewed date:08/18/2024 04:34:01 PM Interpretation: Performing Lab:[facility], [address] [place] [address], [place], Phone - [phone], Director - Shannan Notes/Report: WBC 8.8 3.4-10.8 [...] 0.0-0.1 x10E3/uL NRBC Hematology Comments: Prothrombin Time (PT)-[id number] Reviewed date:08/18/2024 04:33:57 PM Interpretation: Performing Lab:[facility], [address] [place] [address], Phone - [phone], Director [facility] Notes/Report: INR 1.8 0.9-1.1 Prothrombin Time 18.5 9.2-11.4 SEC Prothrombin Time (PT)-[id number] Reviewed date:09/10/2024 04:18:33 PM Interpretation: Performing Lab:[facility], [address] [place] [address], Phone - [phone], Director - [facility] Notes/Report: INR 1.8 0.9-1.1 Prothrombin Time 18.0 9.2-11.4 SEC RPR, Rfx Qn RPR/Confirm TP-0 [id number] Reviewed date:01/07/2025 09:00:04 AM Interpretation: Performing Lab:[facility], [address] [place] [address], Phone - [phone], Director - Shannan Notes/Report: RPR Non Reactive Non Reactive Calcitriol(1,25 di-OH Vit D) -[id number] Reviewed date:01/07/2025 08:59:28 AM Interpretation: Performing Lab:[facility], [address] [place] [address], Phone - [phone], Director - Shannan Notes/Report: Calcitriol(1,25 di-OH Vit D) 34.0 24.8-81.5 pg/mL Comp. Metabolic Panel (14)-3 [id number] Reviewed date:01/07/2025 02:47:01 PM Interpretation: Performing Lab:[facility], [address] [place] [address], Phone - [phone], Director - Shannan Notes/Report: Glucose 107 70-99 mg/dL BUN 13 8-27 mg/dL Creatinine 1.03 0.76-1.27 mg/dL eGFR 79 >59 mL/min/1.73 BUN/Creatinine Ratio 13 10-24 Sodium 144 134-144 mmol/L Potassium 3.8 3.5-5.2 mmol/L Chloride 102 96-106 mmol/L Carbon Dioxide, Total 27 20-29 mmol/L Calcium 9.7 8.6-10.2 mg/dL Protein, Total 6.9 6.0-8.5 g/dL Albumin 4.1 3.9-4.9 g/dL Globulin, Total 2.8 1.5-4.5 g/dL Bilirubin, Total 0.5 0.0-1.2 mg/dL Alkaline Phosphatase 116 44-121 IU/L AST (SGOT) 13 0-40 IU/L ALT (SGPT) 8 0-44 IU/L CBC WITH AUTO DIFFERENTIAL Reviewed date:01/12/2025 09:10:01 PM Interpretation: Performing Lab: Notes/Report: WBC 8.1 4.8-10.8 K/mcL RBC 4.20 4.50-5.50 M/mcL Hemoglobin 12.6 13.5-17.5 g/dL Hematocrit 40.3 42.0-54.0 % MCV 96.4 79.0-98.0 FL MCH 30.1 27.0-32.0 pcg MCHC 31.3 32.0-37.0 g/dL RDW 13.9 11.0-15.0 % Platelets 276 130-400 K/mcL MPV 9.9 7.0-11.0 FL NRBC 0.0 <1.0 % NRBC Absolute 0.00 <0.10 K/mcL Neutrophils Relative 77.1 Lymphocytes Relative 11.0 Monocytes Relative 8.7 Eosinophils Relative 1.9 Basophils Relative 0.9 Immature Granulocytes Relative 0.4 Neutrophils Absolute 6.24 1.50-7.00 K/mcL Lymphocytes Absolute 0.89 1.00-5.00 K/mcL Monocytes Absolute 0.70 0.20-1.00 K/mcL Eosinophils Absolute 0.15 0.00-0.50 K/mcL Basophils Absolute 0.07 0.00-0.20 K/mcL Immature Granulocytes Absolute 0.03 0.00-0.03 K/mcL XR THORACIC SPINE 2 VIEWS Reviewed date:02/16/2025 04:06:08 PM Interpretation: Performing Lab: Notes/Report: Note See Note [facility], a member of [employer] Patient Name: JOSE MANUEL KAM Date of : 1955 Reason for Exam: pain Exam Date: 02/16/2025 [id number] EST Report Status: Final Ordering Provider: CARIDAD CONN PCP: MARIBELL BROOKS HISTORY: The patient is a 69-year-old male with history of prostate carcinoma, presenting with upper back pain for several days. FINDINGS: AP and lat eral radiographs of the thoracic spine demonstrate normal alignment of the bony structures. There is a moderately severe compression fracture of the T8 vertebral body, a new finding since the chest radiograph performed 06/28/2020 but otherwise of unknown age. No other compression fracture is seen. No osteolytic or osteoblastic lesion is demonstrated. There are degenerative osteophytes throughout the mid and lower thoracic spine. IMPRESSION: 1. Moderately severe compression fracture of the T8 vertebral body new since 06/28/2020 but otherwise of unknown chronicity. If the patient has symptoms referable to this area, further evaluation with radionuclide bone scan or with MRI may be considered, especially if percutaneous augmentation is a therapeutic consideration. 2. No osteolytic or osteoblastic lesion is demonstrated. 3. There are degener ative osteophytes throughout the mid and lower thoracic spine. Code 97513 -------- FINAL REPOR T -------- Dictated By: Gregory Reyes Dictated Date: 02/16 11:42 ET Assigned Physician: Gregory Reyes Reviewed and Electronically Signed By: Gregory Reyes Signed Date: 025 11:45 ET Workstation ID: [id number] Transcribed By: Self Edit Transcribed Date: 02/16/2025 11:42 ET TISSUE EXAM Reviewed date:10/19/2024 10:58:13 AM Interpretation: [...] 10% NB formalin fixed and paraffin embedded. XR LUMBAR SPINE 2-3 VIEWS Reviewed date:02/16/2025 04:08:55 PM Interpretation: Performing Lab: Notes/Report: Note See Note [facility], a member of [facility] Patient Name: JOSE MANUEL KAM Date of : 1955 Reason for Exam: THORACIC PAIN M54.6 Exam Date: 02/16/2025 [id number] EST Report Status: Final Ordering Provider: CARIDAD CONN PCP: MARIBELL BROOKS HISTORY: The patient is a 69-year-old male with history of prostate carcinoma, presenting with low back pain for several days, nontraumatic. FINDINGS: AP, latera l, and coned-down spot lateral views of the [...] The remaining disc spaces are well-maintained. Extensive atheroscle rotic arterial calcification is noted. IMPRESSION: 1. No acute findings. 2. Grade 1, 6.1 mm anterior spondylolisthesis of L3 relative to L4 and grade 1, 4.9 mm anterior spondylolisthesis of L4 relative to L5. 3. No osteolytic or osteoblastic lesion is demonstrated. 4. There is degenera tive disc disease at the L4-5 and L5-S1 levels. 5. Extensive atherosclerotic arterial calcification is noted. Code 59123 -------- FINAL REPOR T -------- Dictated By: Gregory Reyes Dictated Date: 02/16 11:45 ET Assigned Physician: Gregory Reyes Reviewed and Electronically Signed By: Gregory Reyes Signed Date: 025 11:49 ET Workstation ID: [id number] Transcribed By: Self Edit Transcribed Date: 02/16/2025 11:45 ET REASON FOR REFERRAL Reason Colonoscopy Diagnosis 1 Colon cancer screeni ng (Z12.11) Referral Organization [facility] Referring Provider First Name MARIBELL Referring Provider Last Name BHARGAVI Referring Provider Speciality Internal M edicine Referred Provider Specialty Gastroentero logy General Notes Dr. Mick Motta, [address] [place] [address], [place], [place], P [phone], F [phone] Clinical Notes Shara Barry 2023 09:27:35 AM >referral info faxed to Dr. Motta's office, [facility] for pt mailing copy to his home for record and self FU, Filiberto Roberto 07/30/2024 11:01:33 AM > The patient is scheduled for an appointment on 09/01/2024 at 2 pm. Pt is aware Referral Priority Routine Reason [facility]; compulsive behaviors, mood d/o; Neurosych eval- decreased memory Diagnosis 1 Memory changes (R41. 3) Diagnosis 2 Compulsive buying (F 42.8) Diagnosis 3 Mood disorder (F39) Referral Organization [facility] Referring Provider First Name MARIBELL Referring Provider Last Name BHARGAVI Referring Provider Speciality Internal M edicine Referred Provider Specialty Neuropsychia try General Notes [facility] , (p) [phone], (f) [phone] Clinical Notes Susan Clement 08:44:35 AM > referral faxed with attachments, Roberto De Los Santos 01/13/2025 09:18:31 AM > I called the office, and they do not see patients over 65 years old with memory issues. They advised sending the referral to the memory clinic. Faxed. phone: [phone], Fax: [phone], [facility] , fax - [phone], Pt requested we also fax this referral to neuro psych attn to jorge , fax- [phone] , faxed , phone - [phone] Referral Priority Routine Reason evaluate & treat Diagnosis 1 Memory changes (R41. 3) Referral Organization [place] [address] Referring Provider First Name Caridad Referring Provider Last Name Svrcek Referring Provider Speciality Internal M edicine Referred Provider Specialty Neurology General Notes Pooja Ross 01/01 10:28:21 AM >manually faxed to [facility] nuerology at fax#[phone], their phone number is [phone] Clinical Notes Susan Clement 01:16:10 PM > manually refaxed with MRI and lab results, Roberto De Los Santos 01/13/2025 09:24:59 AM > I called the office, and they do not see patients over 65 years old with memory issues. They advised sending the referral to the memory clinic. Faxed. phone: [phone], Fax: [phone], Marcello Rao 01/14/2025 02:24:58 PM > re faxed referral to memory clinic, Mary Ellen Yanez 02/09/2025 11:07:59 AM >, faxed labs Referral Priority Routine MEDICATIONS Medication SIG (Take, Route, Frequency, Duration) Notes Start Date End Date Status Vitamin D 50 MCG (1999) 1 tablet Orally Once a day Active Citalopram Hydrobromide 20 mg TAKE 1 TABLET DAILY orally once a day for 90 days Active Calcium 600 MG 1 tablet with meals Orally Twice a day Active Warfarin Sodium 5 mg TAKE 1 TABLET DAILY Active dilTIAZem HCl ER 300 MG 1 capsule Orally Once a day Active Pantoprazole Sodium 40 mg TAKE 1 TABLET DAILY Active Abiraterone Acetate 500 MG one tablet Oral once daily for 30 days Active predniSONE 20 MG 2 tablets Orally Once a day for 5 days 01/16/2025 Not-Taking Nitroglycerin 0.[address] 1 TABLET BY MOUTH UNDER TONGUE for 30 days Active tiZANidine HCl 2 MG 1 tablet at bedtime Orally once daily for 30 days as needed Active traMADol HCl 50 MG 1 tablet as needed dose increase on 04/01/24 Orally twice a day for 30 days 04/14/2024 Active Azithromycin 250 MG 2 tablets x1 day, then 1 tablet daily Orally for 5 days 01/16/2025 Not-Taking Levothyroxine Sodium 100 MCG TAKE 1 TABLET DAILY IN THE MORNING ON AN EMPTY STOMACH Active Journavx 50 MG as directed Orally for 10 days 03/04/2025 Active metFORMIN HCl 500 mg TAKE 1 TABLET DAILY WITH A MEAL Active Losartan Potassium 100 mg TAKE 1 TABLET DAILY Active Furosemide 40 mg TAKE 1 TABLET DAILY Active predniSONE 5 MG 1 tablet Orally Once a day Active Pravastatin Sodium 40 mg TAKE 1 TABLET D AILY orally once a day for 90 days Active IMMUNIZATIONS Vaccine Route Administration Date Status Comme [facility] Tdap IM Intramuscular 03/05/2018 Administered SOCIAL HISTORY [...] mellitus with unspecified complications (E11.8) Active confirmed 97746133 Problem Morbid (severe) obesity due to excess calories (E66.01) Active confirmed Morbid obesity (disorder) (934116598) Problem Hyperlipidemia, unspecified (E78.5) Active confirmed Hyperlipidemia (52315215) Problem Periodic limb movement disorder (G47.61) Active confirmed 431749834 Problem Other chronic pain (G89.29) Active confirmed 03255137 Problem Essential (primary) hypertension (I10) Active confirmed 54909723 Problem Paroxysmal atrial fibrillation (I48.0) Active confirmed Paroxysmal atri al fibrillation (698378898) Problem Acute nasopharyngitis [common cold] (J00) Active confirmed Common cold (57595757) Problem Chronic obstructive pulmonary disease with (acute) exacerbation (J44.1) Active confirmed Acute exacerbation of chronic obstructive airways disease (094832074) Problem Chronic obstructive pulmonary disease, unspecified (J44.9) Active confirmed Chronic obstructive lung disease (55781544) Problem Encounter for general adult medical examination without abnormal findings (Z00.00) Active confirmed 199618789 Problem Morbid obesity (E66.01) Active confirmed Morbid obesity (796387745) Problem 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, unspecified whether custodial insulin use (E11.8) Active confirmed Disorder due to type 2 diabetes mellitus (841889323) Problem Hyperlipidemia, unspecified hyperlipidemia type (E78.5) Active confirmed 50757322 Problem Acquired hypothyroidism (E03.9) Active confirmed 602252013 Problem Prostate cancer (C61) Active confirmed 633866379 Problem Vitamin D deficiency (E55.9) Active confirmed 05151262 Problem Elevated PSA (R97.20) Active confirmed 171342963 Problem Blood in stool (K92.1) Active confirmed 661218923 Problem ENE (obstructive sleep apnea) (G47.33) Active confirmed 94260245 Problem BMI 40.0-44.9, adult (Z68.41) Active confirmed 992136899 Problem Chronic anticoagulation (Z79.01) Active confirmed 987811981 Problem Type 2 diabetes mellitus without complication, without long-term current use of insulin (E11.9) Active confirmed 748415421 Problem Body mass index [BMI] 45.0-49.9, adult (Z68.42) Active confirmed 666692078 Problem Cough (R05.9) Active confirmed Cough (4 5516276) Problem Memory changes (R41.3) Active confirmed 551354497 Problem Sciatic radiculitis (M51.17) Active confirmed 52344216 Problem Lumbar pain (M54.50) Active confirmed 603596931 Problem Mood disorder (F39) Active confirmed Mood disorder (99632209) Problem ENE on CPAP (G47.33) Active confirmed 63431839 Problem Abnormal white blood cell (WBC) (D72.9) Active confirmed White blood lorne l disorder (11637648) Problem Compulsive buying (F42.8) Active confirmed 4165340 VITAL SIGNS Heart Rate 70 /min 03/04/2025 Temperature 98.5 degrees Fahrenheit 01/13/2025 Oximetry 98 % 03/04/2025 Blood pressure diastolic 78 mm Hg 03/04/2025 Height 69 in 03/04/2025 Blood pressure systolic 130 mm Hg 03/04/2025 Weight 268 lbs 03/04/2025 BMI 39.57 kg/m2 03/04/2025 Encounters Encounter Location Date Provider Diagnosis [facility] [address] [facility] [address] [place] [address] 06/16/2024 MARIBELL BROOKS Type 2 diabetes mellitus with unspecified complications E11.8 ; Essential (primary) hypertension I10 ; Hyperlipidemia, unspecified hyperlipidemia type E78.5 and Acquired hypothyroidism E03.9 [facility] [address] [place] [address] 07/22/2024 DELMAR ROBLES Blood in stool K92.1 ; Paroxysmal atrial fibrillation I48.0 ; Hyperlipidemia, unspecified E78.5 ; 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, unspecified whether custodial insulin use E11.8 ; Acquired hypothyroidism E03.9 and Type 2 diabetes mellitus without complication, without long-term current use of insulin E11.9 [address] [facility] [address] [place] [address] 08/19/2024 DELMAR ROBLES Paroxysmal atrial fibrillation I48.0 ; Blood in stool K92.1 ; Hyperlipidemia, unspecified E78.5 ; 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, unspecified whether custodial insulin use E11.8 ; Acquired hypothyroidism E03.9 ; Type 2 diabetes mellitus without complication, without long-term current use of insulin E11.9 and Prostate cancer C61 [facility] [address] 09/17/2024 TALSAIRA BROOKS Acute cellulitis L03 .90 ; Hyperlipidemia, unspecified E78.5 ; Paroxysmal atrial fibrillation I48.0 ; Chronic obstructive pulmonary disease, unspecified J44.9 and 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, unspecified whether extermination inspector insulin use E11.8 [address] 10/01/2024 Caridad Svrcek Acute cellulitis L03 .90 ; Other chronic pain G89.29 ; Low back pain, unspecified M54.50 ; Chronic obstructive pulmonary disease, unspecified J44.9 and 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, unspecified whether custodial insulin use E11.8 [address] 11/05/2024 Caridad Svrcek Low back pain, unspecified M54.50 ; Spinal stenosis of lumbar region with neurogenic claudication M48.062 ; Other chronic pain G89.29 ; Acute cellulitis L03.90 ; Paroxysmal atrial fibrillation I48.0 and Chronic anticoagulation Z79.[address] 12/28/2024 Caridad Svrcek Memory changes R41.3 and Compulsive buying F42.8 [address] 01/12/2025 Caridad Svrcek Memory changes R41.3 ; Compulsive buying F42.8 ; ENE on CPAP G47.33 and Periodic limb movement disorder G47.61 [facility] [address] [place] [address] 01/13/2025 TIERRA MICHELLE Acute URI J06.9 ; Na naye congestion R09.81 and Body aches R52 [address] 02/16/2025 Caridad Svrcek Memory changes R41.3 ; Acute bilateral thoracic back pain M54.6 ; Compulsive buying F42.8 ; ENE on CPAP G47.33 and Periodic limb movement disorder G47.61 [address] [facility] [place] [address] [place] [address] 03/04/2025 Caridad Svrcek Compression fracture of T8 vertebra, initial encounter S22.060A [address] [place] [address] [place] [address] 04/14/[address] [facility] [address] [place] [address] 06/17/[address] [facility] [address] [place] [address] 06/24/[address] [facility] [address] [place] [address] 06/30/[address] [facility] [facility] [address] [place] [address] [place] [address] 07/22/2024 DELMAR ROBLES [address] [facility] [address] [place] [address] 09/17/[address] [facility] [address] [place] [address] 10/26/[address] [facility] [address] [place] [address] [place] [address] 11/13/2024 TALAL BROOKS [address] [facility] [address] [place] [address] 12/30/2024 Caridad Svrcek Memory changes R41.[address] [facility] [address] [place] [address] [place] [address] 12/30/2024 TALAL BROOKS [address] [place] [address] [place] [address] 01/07/2025 Caridad Svrcek Abnormal white blood cell (WBC) D72.9 [address] [facility] [address] [place] [address] 01/11/[address] [facility] [address] [place] [address] [place] [address] 01/12/2025 TALAL BROOKS [address] [place] [address] [place] [address] 01/12/2025 Caridad Svrcek [address] [place] [address] [place] [address] 01/13/[address] [facility] [address] [place] [address] [place] [address] 01/13/[address] [facility] [address] [place] [address] 01/13/[address] [facility] [facility] [address] [place] [address] [place] [address] 01/15/[address] [facility] [address] [place] [address] [place] [address] 01/16/[address] [facility] [address] [place] [address] [place] [address] 01/20/[address] [facility] [facility] [address] [place] [address] [place] [address] 02/02/[address] [facility] [address] [place] [address] [place] [address] 02/02/2025 Caridad Svrcek [address] [facility] [address] [place] [address] 02/16/2025 Caridad Svrcek [address] [facility] [address] [place] [address] 02/22/[address] [facility] [address] [place] [address] [place] [address] 03/04/2025 Caridad Svrcek [address] [facility] [address] [place] [address] 03/29/2025 Caridad Svrcek [address] [facility] [address] [place] [address] 03/30/2024 TALAL BROOKS [address] [facility] [address] [place] [address] 03/31/2024 TALAL BROOKS [address] [facility] [address] [place] [address] 04/11/2024 TALAL BROOKS [address] [facility] [address] [place] [address] 05/14/2024 TALAL BROOKS [address] [facility] [address] [place] [address] 07/20/2024 TALAL BROOKS [address] [facility] [address] [place] [address] 08/18/2024 TALAL BROOKS [address] [facility] [address] [place] [address] 09/29/2024 [place] [address] [place] [address] [place] [address] 11/06/2024 Caridad Svrcek [address] [facility] [address] [place] [address] 12/09/2024 Caridad Svrcek [address] [facility] [address] [place] [address] 12/14/2024 Caridad Svrcek [address] [facility] [address] [place] [address] 12/21/2024 Caridad Svrcek [address] [facility] [address] [place] [address] 01/13/2025 MARIBELL BROOKS [address] [facility] [address] [place] [address] 02/08/2025 Caridad Svrcek [address] [facility] [address] [facility] [address] [place] [address] 02/09/2025 Caridad Svrcek [address] [address] 03/03/2025 Caridad Svrcek [address] [address] 03/04/2025 Caridad Svrcek ASSESSMENTS Encounter Date Diagnosis Assessment Notes Treatment Notes Treatment Clinical Notes Section Notes 06/16/2024 Type 2 diabetes mellitus with unspecified [...] of regular follow-up with primary care physician, marine engine mechanic and 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 Patient is doing [...] reviewed. Dictation completed with the use of [employer] voice recognition software, prone to medical misidentifications [...] reviewed. Dictation completed with the use of [employer] voice recognition software, prone to medical misidentifications [...] well, he is encouraged to follow-up with green inspector, Dr. 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 Reviewed return to [...] with [facility] [place], due to see them again 10/21/2024. Currently taking Zytiga with prednisone. Plan to request records from [facility] for continued evaluation. #Hypothyroidism: Clinically the [...] reviewed. Dictation completed with the use of [employer] voice recognition software, prone to medical misidentifications [...] and follows up with [facility]mad[facility] clinic at [place] Possible interaction with Coumadin and Keflex and patient has been educated and last INR was 1.8 and has follow-up with Coumadin clinic. Patient will see Caridad in 2 weeks for wound check 09/17/2024 Acute cellulitis (ICD-10 - L03.90) Patient treated for acute cellulitis to complete K-Flex and wound care done. Hyperlipidemia and back pain stable and patient will continue with current medications for COPD patient is on inhalers.. He has lost 30 pounds with diet and exercise he also is on Coumadin and follows up with [facility] clinic at [place] Possible interaction with Coumadin and Keflex and patient has been educated and last INR was 1.8 and has follow-up with Coumadin clinic. Patient will see Caridad in 2 weeks for wound check 10/01/2024 [...] symptoms. #Chronic low back pain. Followed by [facility] pain clinic and is currently getting [...] symptoms. #Chronic low back pain. Followed by [facility] pain clinic and is currently getting [...] for. #Chronic low back pain. Followed by [facility] pain clinic and is currently getting epidural injections without significant improvement. Had follow up MRI as above. #Constipation. Mild. Discussed bowel regimen. Start miralax once daily. Cut back if loose stools. He did have recent colonoscopy last month. #cellulitis- Resolved #A-fib. Denies any chest pain shortness of breath or palpitations. Rate controlled. Anticoagulated on Coumadin and managed by Coumadin clinic in [place]. Most recent INR yesterday was 2.1. Currently on Coumadin 5 mg 4 days a week and 2.5 mg 3 days a week. Dose has been stable for several years. Case discussed with collaborating physician Moustapha Brooks who reviewed the assessment and plan. Chart, medications, labs, vital signs reviewed. Dictation was accomplished with the use of [employer] voice recognition software, prone to medical misidentifications [...] for. #Chronic low back pain. Followed by [facility] pain clinic and is currently getting epidural injections without significant improvement. Had follow up MRI as above. #Constipation. Mild. Discussed bowel regimen. Start miralax once daily. Cut back if loose stools. He did have recent colonoscopy last month. #cellulitis- Resolved #A-fib. Denies any chest pain shortness of breath or palpitations. Rate controlled. Anticoagulated on Coumadin and managed by Coumadin clinic in [place]. Most recent INR yesterday was 2.1. Currently on Coumadin 5 mg 4 days a week and 2.5 mg 3 days a week. Dose has been stable for several years. Case discussed with collaborating physician Moustapha Brooks who reviewed the assessment and plan. Chart, medications, labs, vital signs reviewed. Dictation was accomplished with the use of [employer] voice recognition software, prone to medical misidentifications and grammatical errors. This is unintentional and the practitioner does try to identify and correct these, but some could still be present. Please do not hesitate to contact practitioner for clarification. All questions answered to patients satisfaction. Patient verbalized understanding of diagnosis and treatments explained. To call sooner prior to next visit it any questions/concerns arise. 12/28/2024 Memory changes (ICD-10 - R41.3) #Memory changes. Patient and family have noticed changes in his memory and difficulty recalling situations. Mini-Mental status exam done in the office today scored 27 out of 30. Discussed in detail with patient. Will get lab workup. He is interested in seeing [facility] and is requesting a referral today. Will also refer to [facility] neurology and send for brain MRI. Follow-up pending results. #Compulsive buying. He has had an issue with compulsive spending for many years resulting in significant financial issues. He is currently on Celexa and would like to pursue further help with psychiatry and therapy. Requesting referral to [facility] behavioral health. His family is very involved and supportive. As above we will do further workup with labs imaging and referral. Case discussed with collaborating physician Moustapha Brooks who reviewed the assessment and plan. Chart, medications, labs, vital signs reviewed. Dictation was accomplished with the use of [employer] voice recognition software, prone to medical misidentifications and grammatical errors. This is unintentional and the practitioner does try to identify and correct these, but some could still be present. Please do not hesitate to contact practitioner for clarification. All questions answered to patients satisfaction. Patient verbalized understanding of diagnosis and treatments explained. To call sooner prior to next visit it any questions/concerns arise. 12/28/2024 Compulsive buying (ICD-10 - F42.8) #Memory changes. Patient and family have noticed changes in his memory and difficulty recalling situations. Mini-Mental status exam done in the office today scored 27 out of 30. Discussed in detail with patient. Will get lab workup. He is interested in seeing [facility] and is requesting a referral today. Will also refer to [facility] neurology and send for brain MRI. Follow-up pending results. #Compulsive buying. He has had an issue with compulsive spending for many years resulting in significant financial issues. He is currently on Celexa and would like to pursue further help with psychiatry and therapy. Requesting referral to [facility]. His family is very involved and supportive. As above we will do further workup with labs imaging and referral. Case discussed with collaborating physician Moustapha Brooks who reviewed the assessment and plan. Chart, medications, labs, vital signs reviewed. Dictation was accomplished with the use of [employer] voice recognition software, prone to medical misidentifications and grammatical errors. This is unintentional and the practitioner does try to identify and correct these, but some could still be present. Please do not hesitate to contact practitioner for clarification. All questions answered to patients satisfaction. Patient verbalized understanding of diagnosis and treatments explained. To call sooner prior to next visit it any questions/concerns arise. 12/30/2024 Memory changes (ICD-10 - R41.3) 01/07/2025 Abnormal white blood cell (WBC) (ICD-10 - D72.9) 01/12/2025 Memory changes (ICD-10 - R41.3) #Memory changes. Patient and family have noticed changes in his memory and difficulty recalling situations. Mini-Mental status exam done in the office last visit . Lab work up negative. MRI Brain reviewed with patient. No acute pathology, mild generalized volume loss and chronic microvascular ischemic or gliotic changes noted to white matter. Refer to Neurology. Discussed option of medications such as aricpet, will hold off for now. Would like to persue neuropsych eval as well. #Compulsive buying. He has had an issue with compulsive spending for many years resulting in significant financial issues. He is currently on Celexa and would like to pursue further help with psychiatry and therapy. Referred. Has good family support. #ENE. On CPAP/BiPAP. Followed by pulmonology. #Periodic limb movement disorder. Hematologist wanted to start him on ropinirole for restless legs. He has declined to do so. We did discuss effect of poor sleep on memory and mood. Will request copy of sleep study to review. Case discussed with collaborating physician Moustapha Brooks who reviewed the assessment and plan. Chart, medications, labs, vital signs reviewed. Dictation was accomplished with the use of [employer] voice recognition software, prone to medical misidentifications and grammatical errors. This is unintentional and the practitioner does try to identify and correct these, but some could still be present. Please do not hesitate to contact practitioner for clarification. All questions answered to patients satisfaction. Patient verbalized understanding of diagnosis and treatments explained. To call sooner prior to next visit it any questions/concerns arise. 01/12/2025 Compulsive buying (ICD-10 - F42.8) #Memory changes. Patient and family have noticed changes in his memory and difficulty recalling situations. Mini-Mental status exam done in the office last visit . Lab work up negative. MRI Brain reviewed with patient. No acute pathology, mild generalized volume loss and chronic microvascular ischemic or gliotic changes noted to white matter. Refer to Neurology. Discussed option of medications such as aricpet, will hold off for now. Would like to persue neuropsych eval as well. #Compulsive buying. He has had an issue with compulsive spending for many years resulting in significant financial issues. He is currently on Celexa and would like to pursue further help with psychiatry and therapy. Referred. Has good family support. #ENE. On CPAP/BiPAP. Followed by pulmonology. #Periodic limb movement disorder. Hematologist wanted to start him on ropinirole for restless legs. He has declined to do so. We did discuss effect of poor sleep on memory and mood. Will request copy of sleep study to review. Case discussed with collaborating physician Moustapha Brooks who reviewed the assessment and plan. Chart, medications, labs, vital signs reviewed. Dictation was accomplished with the use of [employer] voice recognition software, prone to medical misidentifications and grammatical errors. This is unintentional and the practitioner does try to identify and correct these, but some could still be present. Please do not hesitate to contact practitioner for clarification. All questions answered to patients satisfaction. Patient verbalized understanding of diagnosis and treatments explained. To call sooner prior to next visit it any questions/concerns arise. 01/13/2025 Nasal congestion (ICD-10 - R09.81) Patient is a pleasant 69 y.o. male with pertinent pmhx of afib on warfarin and prostate cancer on abiratone and prednisone 5mg daily presenting for urgent visit due to concerns of cold symptoms for the past 7 days. Patient denied chest pain, SOB, and GI symptoms. A Viral respiratory PCR panel was obtained and pending. There are no signs of bacterial infection at this time, lungs are clear to auscultation and patient is currently in Afib on Warfarin which is baseline. Antibiotics and CXR were discussed if symptoms continue and worsen, however not necessary at this time. Patient educated to take tylenol for pain, and fever reduction, take mucinex for congestion. Patient educated on risks/benefits and side effects of medication. Patient educated to continue supportive care with hydration and rest. Patient educated to call the office if symptoms worsen. Patient to return in 1 month for follow up or sooner if needed. All questions answered to patients' satisfaction. Patient verbalized understanding of diagnosis and treatments explained. To call sooner prior to the next visit if any questions/concerns arise. Case discussed with collaborating physician Alvarez Brooks who reviewed the assessment and plan. Chart, medications, labs, vital signs reviewed. Dictation was accomplished with the use of [employer] voice recognition software, prone to medical misidentifications and grammatical errors. This is unintentional and the practitioner does try to identify and correct these, but some could still be present. Please do not hesitate to contact the practitioner for clarification. 01/13/2025 Acute URI (ICD-10 - J06.9) Patient is a pleasant 69 y.o. male with pertinent pmhx of afib on warfarin and prostate cancer on abiratone and prednisone 5mg daily presenting for urgent visit due to concerns of cold symptoms for the past 7 days. Patient denied chest pain, SOB, and GI symptoms. A Viral respiratory PCR panel was obtained and pending. There are no signs of bacterial infection at this time, lungs are clear to auscultation and patient is currently in Afib on Warfarin which is baseline. Antibiotics and CXR were discussed if symptoms continue and worsen, however not necessary at this time. Patient educated to take tylenol for pain, and fever reduction, take mucinex for congestion. Patient educated on risks/benefits and side effects of medication. Patient educated to continue supportive care with hydration and rest. Patient educated to call the office if symptoms worsen. Patient to return in 1 month for follow up or sooner if needed. All questions answered to patients' satisfaction. Patient verbalized understanding of diagnosis and treatments explained. To call sooner prior to the next visit if any questions/concerns arise. Case discussed with collaborating physician Alvarez Brooks who reviewed the assessment and plan. Chart, medications, labs, vital signs reviewed. Dictation was accomplished with the use of [employer] voice recognition software, prone to medical misidentifications and grammatical errors. This is unintentional and the practitioner does try to identify and correct these, but some could still be present. Please do not hesitate to contact the practitioner for clarification. 02/16/2025 Acute bilateral thoracic back pain (ICD-10 [...] Dictation was accomplished with the use of [employer] voice recognition software, prone to medical misidentifications [...] next visit it any questions/concerns arise. 02/16/2025 Memory changes (ICD-10 - R41.3) #Thoracic [...] Dictation was accomplished with the use of [employer] voice recognition software, prone to medical misidentifications and grammatical errors. This is unintentional and the practitioner does try to identify and correct these, but some could still be present. Please do not hesitate to contact practitioner for clarification. All questions answered to patients satisfaction. Patient verbalized understanding of diagnosis and treatments explained. To call sooner prior to next visit it any questions/concerns arise. 03/04/2025 Compression fracture of T8 vertebra, initial encounter (ICD-10 - S22.060A) #Compression fracture. T8. CT ordered by specialist in [place] reviewd. Planning for Kyphoplasty in [place]- awaiting appt. Will discuss with his specialist this afternoon. Tramadol ineffective for pain control. Unfortunately, he is traveling to [place] Saturday with his grandchildren to go to [employer]. Discussed No rides, lifting etc. He will be using a scooter while there. WIll trial Journavx for pain control. Discussed signs/symptoms to monitor for. He will let me know once he has kyphoplasty appt. Case discussed with collaborating physician Moustapha Brooks who reviewed the assessment and plan. Chart, medications, labs, vital signs reviewed. Dictation was accomplished with the use of [employer] voice recognition software, prone to medical misidentifications [...] symptoms. #Chronic low back pain. Followed by [facility] pain clinic and is currently getting epidural injections without significant improvement. He has follow-up with them in 2-1/2 weeks and they may be considering an MRI to further evaluate. Will follow-up with me in 1 month sooner with any concerns. 02/16/2025 Compulsive buying (ICD-10 - F42.8) #Thoracic [...] Dictation was accomplished with the use of [employer] voice recognition software, prone to medical misidentifications and grammatical errors. This is unintentional and the practitioner does try to identify and correct these, but some could still be present. Please do not hesitate to contact practitioner for clarification. All questions answered to patients satisfaction. Patient verbalized understanding of diagnosis and treatments explained. To call sooner prior to next visit it any questions/concerns arise. 01/13/2025 Body aches (ICD-10 - R52) Patient is a pleasant 69 y.o. male with pertinent pmhx of afib on warfarin and prostate cancer on abiratone and prednisone 5mg daily presenting for urgent visit due to concerns of cold symptoms for the past 7 days. Patient denied chest pain, SOB, and GI symptoms. A Viral respiratory PCR panel was obtained and pending. There are no signs of bacterial infection at this time, lungs are clear to auscultation and patient is currently in Afib on Warfarin which is baseline. Antibiotics and CXR were discussed if symptoms continue and worsen, however not necessary at this time. Patient educated to take tylenol for pain, and fever reduction, take mucinex for congestion. Patient educated on risks/benefits and side effects of medication. Patient educated to continue supportive care with hydration and rest. Patient educated to call the office if symptoms worsen. Patient to return in 1 month for follow up or sooner if needed. All questions answered to patients' satisfaction. Patient verbalized understanding of diagnosis and treatments explained. To call sooner prior to the next visit if any questions/concerns arise. Case discussed with collaborating physician Alvarez Brooks who reviewed the assessment and plan. Chart, medications, labs, vital signs reviewed. Dictation was accomplished with the use of [employer] voice recognition software, prone to medical misidentifications and grammatical errors. This is unintentional and the practitioner does try to identify and correct these, but some could still be present. Please do not hesitate to contact the practitioner for clarification. 01/12/2025 ENE on CPAP (ICD-10 - G47.33) #Memory changes. Patient and family have noticed changes in his memory and difficulty recalling situations. Mini-Mental status exam done in the office last visit . Lab work up negative. MRI Brain reviewed with patient. No acute pathology, mild generalized volume loss and chronic microvascular ischemic or gliotic changes noted to white matter. Refer to Neurology. Discussed option of medications such as aricpet, will hold off for now. Would like to persue neuropsych eval as well. #Compulsive buying. He has had an issue with compulsive spending for many years resulting in significant financial issues. He is currently on Celexa and would like to pursue further help with psychiatry and therapy. Referred. Has good family support. #ENE. On CPAP/BiPAP. Followed by pulmonology. #Periodic limb movement disorder. Hematologist wanted to start him on ropinirole for restless legs. He has declined to do so. We did discuss effect of poor sleep on memory and mood. Will request copy of sleep study to review. Case discussed with collaborating physician Moustapha Brooks who reviewed the assessment and plan. Chart, medications, labs, vital signs reviewed. Dictation was accomplished with the use of [employer] voice recognition software, prone to medical misidentifications [...] next visit it any questions/concerns arise. 08/19/2024 Blood in stool (ICD-10 - K92.1) [...] well, he is encouraged to follow-up with green inspector, Dr. 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 Reviewed return to [...] with [facility] [place], due to see them again 10/21/2024. Currently taking Zytiga with prednisone. Plan to request records from [facility] for continued evaluation. #Hypothyroidism: Clinically the [...] reviewed. Dictation completed with the use of [employer] voice recognition software, prone to medical misidentifications [...] for. #Chronic low back pain. Followed by [facility] pain clinic and is currently getting epidural injections without significant improvement. Had follow up MRI as above. #Constipation. Mild. Discussed bowel regimen. Start miralax once daily. Cut back if loose stools. He did have recent colonoscopy last month. #cellulitis- Resolved #A-fib. Denies any chest pain shortness of breath or palpitations. Rate controlled. Anticoagulated on Coumadin and managed by Coumadin clinic in [place]. Most recent INR yesterday was 2.1. Currently on Coumadin 5 mg 4 days a week and 2.5 mg 3 days a week. Dose has been stable for several years. Case discussed with collaborating physician Moustapha Brooks who reviewed the assessment and plan. Chart, medications, labs, vital signs reviewed. Dictation was accomplished with the use of [employer] voice recognition software, prone to medical misidentifications [...] and follows up with Coumadin clinic at [place].. Possible interaction with Coumadin and Keflex and patient has been educated and last INR was 1.8 and has follow-up with Coumadin clinic. Patient will see Caridad in 2 weeks for wound check 07/22/2024 [...] reviewed. Dictation completed with the use of [employer] voice recognition software, prone to medical misidentifications [...] well, he is encouraged to follow-up with green inspector, Dr. 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 Reviewed return to [...] with [facility] at [facility] [place], due to see them again 10/21/2024. Currently taking Zytiga with prednisone. Plan to request records from [facility] for continued evaluation. #Hypothyroidism: Clinically the [...] reviewed. Dictation completed with the use of [employer] voice recognition software, prone to medical misidentifications [...] of regular follow-up with primary care physician, marine engine mechanic and 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 Patient is doing well hemoglobin A1c 6.1 taking medications as prescribed. Continue medical weight loss continue to hold Coumadin for injection in the spine tomorrow and then follow-up in 3 months 06/16/2024 Hyperlipidemia, unspecified hyperlipidemia type (ICD-10 - [...] of regular follow-up with primary care physician, marine engine mechanic and 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 Patient is doing well hemoglobin A1c 6.1 taking medications as prescribed. Continue medical weight loss continue to hold Coumadin for injection in the spine tomorrow and then follow-up in 3 months 07/22/2024 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, unspecified whether custodial insulin use (ICD-10 - E11.8) Jose Manuel [...] reviewed. Dictation completed with the use of [employer] voice recognition software, prone to medical misidentifications and grammatical errors. All errors are unintentional. Although the practitioner does try to identify and correct errors, some may be present. Please do not hesitate to contact the practitioner for clarification. 08/19/2024 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, unspecified whether extermination inspector insulin use (ICD-10 - E11.8) Jose Manuel [...] well, he is encouraged to follow-up with green inspector, Dr. 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 Reviewed return to [...] with [facility] [place], due to see them again 10/21/2024. Currently taking Zytiga with prednisone. Plan to request records from [facility] for continued evaluation. #Hypothyroidism: Clinically the [...] reviewed. Dictation completed with the use of [employer] voice recognition software, prone to medical misidentifications [...] and follows up with Coumadin clinic at [place] Possible interaction with Coumadin and Keflex and patient has been educated and last INR was 1.8 and has follow-up with Coumadin clinic. Patient will see Caridad in 2 weeks for wound check 10/01/2024 Chronic obstructive pulmonary disease, unspecified (ICD-10 [...] symptoms. #Chronic low back pain. Followed by [facility] pain clinic and is currently getting [...] for. #Chronic low back pain. Followed by [facility] pain clinic and is currently getting epidural injections without significant improvement. Had follow up MRI as above. #Constipation. Mild. Discussed bowel regimen. Start miralax once daily. Cut back if loose stools. He did have recent colonoscopy last month. #cellulitis- Resolved #A-fib. Denies any chest pain shortness of breath or palpitations. Rate controlled. Anticoagulated on Coumadin and managed by Coumadin clinic in [place]. Most recent INR yesterday was 2.1. Currently on Coumadin 5 mg 4 days a week and 2.5 mg 3 days a week. Dose has been stable for several years. Case discussed with collaborating physician Moustapha Brooks who reviewed the assessment and plan. Chart, medications, labs, vital signs reviewed. Dictation was accomplished with the use of [employer] voice recognition software, prone to medical misidentifications and grammatical errors. This is unintentional and the practitioner does try to identify and correct these, but some could still be present. Please do not hesitate to contact practitioner for clarification. All questions answered to patients satisfaction. Patient verbalized understanding of diagnosis and treatments explained. To call sooner prior to next visit it any questions/concerns arise. 01/12/2025 Periodic limb movement disorder (ICD-10 - G47.61) #Memory changes. Patient and family have noticed changes in his memory and difficulty recalling situations. Mini-Mental status exam done in the office last visit . Lab work up negative. MRI Brain reviewed with patient. No acute pathology, mild generalized volume loss and chronic microvascular ischemic or gliotic changes noted to white matter. Refer to Neurology. Discussed option of medications such as aricpet, will hold off for now. Would like to persue neuropsych eval as well. #Compulsive buying. He has had an issue with compulsive spending for many years resulting in significant financial issues. He is currently on Celexa and would like to pursue further help with psychiatry and therapy. Referred. Has good family support. #ENE. On CPAP/BiPAP. Followed by pulmonology. #Periodic limb movement disorder. Hematologist wanted to start him on ropinirole for restless legs. He has declined to do so. We did discuss effect of poor sleep on memory and mood. Will request copy of sleep study to review. Case discussed with collaborating physician Moustapha Brooks who reviewed the assessment and plan. Chart, medications, labs, vital signs reviewed. Dictation was accomplished with the use of [employer] voice recognition software, prone to medical misidentifications [...] Dictation was accomplished with the use of [employer] voice recognition software, prone to medical misidentifications [...] Dictation was accomplished with the use of [employer] voice recognition software, prone to medical misidentifications [...] for. #Chronic low back pain. Followed by [facility] pain clinic and is currently getting epidural injections without significant improvement. Had follow up MRI as above. #Constipation. Mild. Discussed bowel regimen. Start miralax once daily. Cut back if loose stools. He did have recent colonoscopy last month. #cellulitis- Resolved #A-fib. Denies any chest pain shortness of breath or palpitations. Rate controlled. Anticoagulated on Coumadin and managed by Coumadin clinic in [place]. Most recent INR yesterday was 2.1. Currently on Coumadin 5 mg 4 days a week and 2.5 mg 3 days a week. Dose has been stable for several years. Case discussed with collaborating physician Moustapha Brooks who reviewed the assessment and plan. Chart, medications, labs, vital signs reviewed. Dictation was accomplished with the use of [employer] voice recognition software, prone to medical misidentifications [...] 2 diabetes mellitus with complication, unspecified whether custodial insulin use (ICD-10 - E11.8) #Cellulitis. Left [...] symptoms. #Chronic low back pain. Followed by [facility] pain clinic and is currently getting epidural injections without significant improvement. He has follow-up with them in 2-1/2 weeks and they may be considering an MRI to further evaluate. Will follow-up with me in 1 month sooner with any concerns. 09/17/2024 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, unspecified whether custodial insulin use (ICD-10 - E11.8) Patient treated for acute cellulitis to complete K-Flex and wound care done. Hyperlipidemia and back pain stable and patient will continue with current medications for COPD patient is on inhalers.. He has lost 30 pounds with diet and exercise he also is on Coumadin and follows up with Coumadin clinic at [place] Possible interaction with Coumadin and Keflex and patient has been educated and last INR was 1.8 and has follow-up with Coumadin clinic. Patient will see Caridad in 2 weeks for wound check 08/19/2024 Acquired hypothyroidism (ICD-10 - E03.9) Jose [...] well, he is encouraged to follow-up with green inspector, Dr. 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 Reviewed return to [...] with [facility], due to see them again 10/21/2024. Currently taking Zytiga with prednisone. Plan to request records from [facility] for continued evaluation. #Hypothyroidism: Clinically the [...] reviewed. Dictation completed with the use of [employer] voice recognition software, prone to medical misidentifications and grammatical errors. All errors are unintentional. Although the practitioner does try to identify and correct errors, some may be present. Please do not hesitate to contact the practitioner for clarification. 07/22/2024 Acquired hypothyroidism (ICD-10 - E03.9) Jose [...] reviewed. Dictation completed with the use of [employer] voice recognition software, prone to medical misidentifications [...] of regular follow-up with primary care physician, marine engine mechanic and 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 Patient is doing well hemoglobin A1c 6.1 taking medications as prescribed. Continue medical weight loss continue to hold Coumadin for injection in the spine tomorrow and then follow-up in 3 months 07/22/2024 Type 2 diabetes mellitus without complication, [...] reviewed. Dictation completed with the use of [employer] voice recognition software, prone to medical misidentifications [...] for. #Chronic low back pain. Followed by [facility] pain clinic and is currently getting epidural injections without significant improvement. Had follow up MRI as above. #Constipation. Mild. Discussed bowel regimen. Start miralax once daily. Cut back if loose stools. He did have recent colonoscopy last month. #cellulitis- Resolved #A-fib. Denies any chest pain shortness of breath or palpitations. Rate controlled. Anticoagulated on Coumadin and managed by Coumadin clinic in [place]. Most recent INR yesterday was 2.1. Currently on Coumadin 5 mg 4 days a week and 2.5 mg 3 days a week. Dose has been stable for several years. Case discussed with collaborating physician Moustapha Brooks who reviewed the assessment and plan. Chart, medications, labs, vital signs reviewed. Dictation was accomplished with the use of [employer] voice recognition software, prone to medical misidentifications [...] well, he is encouraged to follow-up with green inspector, Dr. 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 Reviewed return to [...] with [facility] [place], due to see them again 10/21/2024. Currently taking Zytiga with prednisone. Plan to request records from [facility] for continued evaluation. #Hypothyroidism: Clinically the [...] reviewed. Dictation completed with the use of [employer] voice recognition software, prone to medical misidentifications [...] well, he is encouraged to follow-up with green inspector, Dr. 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 Reviewed return to [...] with [facility] [place], due to see them again 10/21/2024. Currently taking Zytiga with prednisone. Plan to request records from [facility] for continued evaluation. #Hypothyroidism: Clinically the [...] reviewed. Dictation completed with the use of [employer] voice recognition software, prone to medical misidentifications and grammatical errors. All errors are unintentional. Although the practitioner does try to identify and correct errors, some may be present. Please do not hesitate to contact the practitioner for clarification. PLAN OF TREATMENT Pending Test Test Name Order Date MRI : Lumbosacral Spines 01/22/2019 MRI : Brain 12/30/2024 Chest X-ray PA and lateral 03/25/2018 MRI : Lumbar without contrast 12/26/2021 1,25OH VITAMIN D 12/28/2024 CBC (COMPLETE BLOOD COUNT) 06/16/2018 CBC (COMPLETE BLOOD COUNT) 10/20/2018 CBC (COMPLETE BLOOD COUNT) 06/16/2020 CBC (COMPLETE BLOOD COUNT) 09/21/2020 CBC (COMPLETE BLOOD COUNT) 12/27/2020 COMPREHENSIVE METABOLIC PANEL 09/21/2020 COMPREHENSIVE METABOLIC PANEL 06/16/2020 COMPREHENSIVE METABOLIC PANEL 10/20/2018 COMPREHENSIVE METABOLIC PANEL 12/27/2020 COMPREHENSIVE METABOLIC PANEL 06/16/2018 HEMOGLOBIN A1C 10/20/2018 HEMOGLOBIN A1C 06/16/2018 HEMOGLOBIN A1C 09/21/2020 HEMOGLOBIN A1C 12/27/2020 LIPID PANEL 12/27/2020 LIPID PANEL 06/16/2020 LIPID PANEL 09/21/2020 LIPID PANEL 10/20/2018 LIPID PANEL 06/16/2018 OCCULT BLOOD SCREEN X 3 07/22/2024 PSA, SCREEN 06/16/2018 TSH 09/21/2020 TSH WITH REFLEX TO FT4 06/16/2018 URIC ACID 06/16/2018 URINALYSIS, COMPLETE 06/16/2018 URINALYSIS, COMPLETE 06/16/2020 URINALYSIS, COMPLETE 12/27/2020 CBC 12/28/2024 Comprehensive Metabolic Panel 12/28/2024 CBC with Differential 01/07/2025 XR Ankle 3+ Views LT 11/10/2018 XR Chest 2 Views 10/09/2021 XR Hip 2+ Views bilat 10/09/2021 XR L-Spine 4+ Views 10/09/2021 XR Thoracic/L-Spine 2 Views 02/16/2025 VITAMIN B12 12/28/2024 PT/INR 07/22/2024 TSH 12/28/2024 LIPID PANEL, STANDARD 06/16/2024 LIPID PANEL, STANDARD 11/13/2022 LIPID PANEL, STANDARD 06/11/2022 COMPREHENSIVE METABOLIC PANEL 06/16/2024 COMPREHENSIVE METABOLIC PANEL 11/13/2022 COMPREHENSIVE METABOLIC PANEL 06/11/2022 CBC (INCLUDES DIFF/PLT) 06/11/2022 CBC (INCLUDES DIFF/PLT) 07/22/2024 CBC (INCLUDES DIFF/PLT) 11/13/2022 CBC (INCLUDES DIFF/PLT) 06/16/2024 URINALYSIS, COMPLETE 11/13/2022 URINALYSIS, COMPLETE 06/11/2022 HEMOGLOBIN A1c 06/11/2022 TSH 06/16/2024 Next Appt Details Provider Name:Caridad Conn, 0 05/11/2025 10:00:00 AM, [address] [facility], [facility] [address], [place], [address], Insurance Providers Payer Name Payer Address Payer Phone Subscriber Number Group Number Insured Name Patient Relationship to Insured Coverage Start Date Coverage End Date Medicare Part B J14 [address] [place] [address] [phone] [id number] JOSE MANUEL KAM Self - patient is the insured 3 [employer] [address] [place] [address] [id number] JOSE MANUEL KAM Self - patient is the insured MEDICATIONS ADMINISTERED Medication Instructions Date of Administration Dosage Notes MICC B12 INJECTION 06/11/2022 [id number] MEDICAL (GENERAL) HISTORY Medical History History ICD Code Essential (primary) hypertension I10 Hyperlipidemia, unspecified E78.5 Unspecified atrial fibrillation I48.91 Hypothyroidism (acquired) E03.9 Gout, unspecified M10.9 Diabetes mellitus due to underlying cond ition without complications E08.9 Prostate cancer C61 Surgical History Surgery Date(Month/Year) gastric lapband and removal colonoscopy 2016 right leg lipoma removal benign cervical fusion cardioversion for afib Dr Steward bilateral cataract December 21 [facility] pain mgmt epidural June 2024
--- OUTSIDE RECORDS SUMMARY | 2025-03-29 16:14 | XMS_ITS ---
Author Organization [facility] Address [address] [place] [address] Care Team Providers Care Personal Support Worker Name Role Phone Samanta Thomas Unavailable [phone] REASON FOR VISIT [employer] Encounters Encounter Location Date Provider Diagnosis [address] [facility] [address] [place] [address] 03/04/2025 Samanta Thomas PLAN OF TREATMENT Next Appt Details Provider Name:Samanta Thomas, 0 05/11/2025 10:00:00 AM, [address], [place], [address], Progress Notes * JOSE MANUEL KAM ADOB:[birth year] (69 yo M)Acc No.[id number]:03/04/2025 Patient:??JOSE MANUEL KAM :1955?Age:69 Y?Sex:Cris castro Address:[address] [place] [id number] * true * Date:??
== END 2025-03-29 14:41 | disposition home or self-care (01) ==
LOC: HO.ACS 13:35
PROVIDERS: PCP Internal Medicine; Visit Provider Internal Medicine Medical Oncology
DX: Z79.01 Long term (current) use of anticoagulants (principal)

== ENCOUNTER → 2025-03-29 13:35 | Outpatient (BNVA) | payer MEDICARE, SELFPAY | PROVIDERS: PCP Internal Medicine; Visit Provider Internal Medicine Medical Oncology | DX: I48.92 Unspecified atrial flutter (principal); Z79.01 Long term (current) use of anticoagulants; Z51.81 Encounter for therapeutic drug level monitoring | CPT/HCPCS: 85610; 99211 ==

== ENCOUNTER 2025-04-05 13:38 | Outpatient (AMB) | payer MEDICARE, SELFPAY ==
[2025-04-05 13:50] LABS: Prothrombin Time Whole Bld POC 27.1 sec (11.1-13.5); ~PT, ~INR - Anti Coag Clinic 2.3 (0.9-1.1)
--- NOTE | 2025-04-05 13:59 | MHC.OFFVISCO ---
Intake Intake Visit Reasons: Anticoagulation Allergies No Known Allergies Allergy (Verified 04/05/25 13:41) Medication List - Last Reconciled 04/05/25 by Ivana Ritchie RN abiraterone 1,000 mg PO DAILY [CALCIUM PO] cholecalciferol (vitamin D3) (Vitamin D3) PO citalopram 20 mg PO DAILY diltiazem HCl CD 300 mg PO DAILY furosemide 40 mg PO DAILY levothyroxine 100 mcg PO DAILY losartan 100 mg PO DAILY metformin mg PO nitroglycerin 0.4 mg sublingual oxycodone mg PO pantoprazole 40 mg PO DAILY pravastatin mg PO prednisone 5 mg PO DAILY tizanidine 2 mg PO BEDTIME tramadol 50 mg PO BID PRN warfarin (Jantoven) 5 mg See Protocol PO DAILY Nursing Note INR: 2.3 in therapeutic range Medications and supplements reviewed *S/P Vertebral Plasty 03/22/25 with some relief *Was on a 5 day hold and received booster doses last week No changes in health, diet, medications, or supplements, Denies any signs and symptoms of bleeding or bruising or clotting. Bleeding, bruising, clotting discussed Nutritional guidance given - enc to wait a few days to eat greens to make sure INR stays therapeutic Dose: resuming usual dose of warfarin 2.5mg mwf/ 5mg x 4 days F/U INR: 4 weeks per pt request Patient verbalizes understanding of instructions given Coding Level of Care Code Est Patient Level 1 Diagnoses Current use of anticoagulant therapy Z79.01 Assessment & Plan Assessment & Plan (1) Current use of anticoagulant therapy: Code(s): Z79.01 - director long term care (current) use of anticoagulants Category: Medical
--- OUTSIDE RECORDS SUMMARY | 2025-04-05 15:07 | XMS_ITS | Patient Health Record ---
Author Organization [facility] Address [address] [place] [address] Care Team Providers Care Wire Roller Name Role Phone Caridad Conn Unavailable [phone] BROOKSMARIBELL RIOS Unavailable [phone] CALVIN ALDRIDGE Unavailable [phone] MICHELLETIERRA CARPENTER Unavailable [phone] MARGARETDELMAR Unavailable [phone] ALLERGIES No Known Allergies RESULTS Component Value Reference Range Notes RPR, Rfx Qn RPR/Confirm TP-0 [id number] Reviewed date:01/07/2025 09:00:04 AM Interpretation: Performing Lab:[facility] [place], [address] [facility], Phone - [phone], Director - Shannan Notes/Report: RPR Non Reactive Non Reactive CBC With Differential/Platel et-[id number] Reviewed date:08/18/2024 04:34:01 PM Interpretation: Performing Lab:[facility] [place], [address] [facility], Phone - [phone], Director - Shannan Notes/Report: WBC 8.8 3.4-10.8 [...] 0.0-0.1 x10E3/uL NRBC Hematology Comments: Prothrombin Time (PT)-686799 Reviewed date:08/18/2024 04:33:57 PM Interpretation: Performing Lab:[facility], [address] [place] [address], Phone - [phone], Director - [facility] Notes/Report: INR 1.8 0.9-1.1 Prothrombin Time 18.5 9.2-11.4 SEC CBC With Differential/Platel et-[id number] Reviewed date:2024 11:21:55 AM Interpretation: Performing Lab:[facility], [address] [place] [address], Phone - [phone], Director - Shannan Notes/Report: WBC 9.9 3.4-10.8 [...] 0.0-0.1 x10E3/uL NRBC Hematology Comments: Prothrombin Time (PT)-064352 Reviewed date:09/10/2024 04:18:33 PM Interpretation: Performing Lab:[facility], [address] [place] [address], Phone - [phone], Director - [facility] Notes/Report: INR 1.8 0.9-1.1 Prothrombin Time 18.0 [...] 10% NB formalin fixed and paraffin embedded. Vitamin [id number] Reviewed date:01/07/2025 08:59:09 AM Interpretation: Performing Lab:[facility], [address] [place] [address], [place], Phone - [phone], Director - Shannan Notes/Report: Vitamin B12 253 671-7287 pg/mL Priscilla Perez CMP14 Default A hand-written panel/profile was received from your office. In accordance with the [facility] Ambiguous Test Code Policy dated June 2003, we have completed your order by using the closest currently or formerly recognized AMA panel. We have assigned Comprehensive Metabolic Panel (14), Test Code #124939 to this request. If this is not the testing you wished to receive on this specimen, please contact the [facility] Client Inquiry/Technical Services Department to clarify the test order. We appreciate your business. [id number] Reviewed date:01/07/2025 08:59:43 AM Interpretation: Performing Lab:[facility], [address] [place] [address], Phone - [phone], Director - Shannan Notes/Report: TSH 1.810 0.450-4.500 uIU/mL CBC With Differential/Platel et-296333 Reviewed date:01/07/2025 02:46:41 PM Interpretation: Performing Lab:[facility] [place], [address] [place] [address], Phone - [phone], Director - Deborahy Notes/Report: WBC 11.5 3.4-10.8 x10E3/uL RBC 4.49 [...] (Abs) 0.0 0.0-0.1 x10E3/uL NRBC Hematology Comments: Calcitriol(1,25 di-OH Vit D) -041540 Reviewed date:01/07/2025 08:59:28 AM Interpretation: Performing Lab:[facility] [place], [address] [place] [address], Phone - [phone], Director - Deborahy Notes/Report: Calcitriol(1,25 di-OH Vit D) 34.0 24.8-81.5 pg/mL Comp. Metabolic Panel (14)-[id number] Reviewed date:01/07/2025 02:47:01 PM Interpretation: Performing Lab:[facility], [address], [place], Phone - [phone], Director - Shannan Notes/Report: Glucose 107 70-99 [...] Interpretation: Performing Lab: Notes/Report: Note See Note [facility], a member of [facility] Patient Name: JOSE MANUEL KAM Date of : 1955 Reason for Exam: pain Exam Date: 02/16/2025 [id number] EST Report Status: Final Ordering Provider: CARIDAD [...] the mid and lower thoracic spine. Code 59689 -------- FINAL REPOR T -------- Dictated By: Gregory Reyes Dictated Date: 02/16 11:42 ET Assigned Physician: Gregory Reyes Reviewed and Electronically Signed By: Gregory Reyes Signed Date: 025 11:45 ET Workstation ID: [id number] Transcribed By: Self Edit Transcribed Date: 02/16/2025 11:42 ET XR LUMBAR SPINE 2-3 VIEWS Reviewed date:02/16/2025 04:08:55 PM Interpretation: Performing Lab: Notes/Report: Note See Note [facility], a member of [facility] Patient Name: JOSE MANUEL KAM Date of : 1955 Reason for Exam: THORACIC PAIN M54.6 Exam Date: 02/16/2025 [id number] EST Report Status: Final Ordering Provider: CARIDAD [...] Extensive atherosclerotic arterial calcification is noted. Code 99034 -------- FINAL REPOR T -------- Dictated By: Gregory Reyes Dictated Date: 02/16 11:45 ET Assigned Physician: Gregory Reyes Reviewed and Electronically Signed By: Gregory Reyes Signed Date: 025 11:49 ET Workstation ID: [id number] Transcribed By: Self Edit Transcribed Date: 02/16/2025 11:45 ET REASON FOR REFERRAL Reason Colonoscopy Diagnosis 1 Colon cancer screeni ng (Z12.11) Referral Organization [facility] Referring Provider First Name MARIBELL Referring Provider Last Name BHARGAVI Referring Provider Speciality Internal M edicine Referred Provider Specialty Gastroentero logy General Notes Dr. Mick Motta, [address] [place] [address], [place], [place], P [phone], F [phone] Clinical Notes Shara Barry 2023 09:27:35 AM >referral info faxed to Dr. Motta's office, [facility] for pt mailing copy to his home for record and self FU, Filiberto Roberto 07/30/2024 11:01:33 AM > The patient is scheduled for an appointment on 09/01/2024 at 2 pm. Pt is aware Referral Priority Routine Reason [facility]; compulsive behaviors, mood d/o; Neurosych eval- decreased memory Diagnosis 1 Memory changes (R41. 3) Diagnosis 2 Compulsive buying (F 42.8) Diagnosis 3 Mood disorder (F39) Referral Organization [facility] Referring Provider First Name MARIBELL Referring Provider Last Name BHARGAVI Referring Provider Speciality Internal M edicine Referred Provider Specialty Neuropsychia try General Notes [facility] , (p) [phone], (f) [phone] Clinical Notes Susan Clement 08:44:35 AM > referral faxed with attachments, Roberto De Los Santos 01/13/2025 09:18:31 AM > I called the office, and they do not see patients over 65 years old with memory issues. They advised sending the referral to the memory clinic. Faxed. phone: [phone], Fax: [phone], [facility] , fax - [phone], Pt requested we also fax this referral to neuro psych attn to jorge , fax- [phone] , faxed , phone - [phone] Referral Priority Routine Reason evaluate & treat Diagnosis 1 Memory changes (R41. 3) Referral Organization [place] [address] Referring Provider First Name Caridad Referring Provider Last Name Svrcek Referring Provider Speciality Internal M edicine Referred Provider Specialty Neurology General Notes Pooja Ross 01/01 10:28:21 AM >manually faxed to [facility] at fax#[phone], their phone number is [phone] Clinical Notes Susan Clement 01:16:10 PM > manually refaxed with MRI and lab results, Roberto De Los Santos 01/13/2025 09:24:59 AM > I called the office, and they do not see patients over 65 years old with memory issues. They advised sending the referral to the memory clinic. Faxed. phone: [phone], Fax: [phone], Marcello Rao 01/14/2025 02:24:58 PM > re [...] IMMUNIZATIONS Vaccine Route Administration Date Status Comme [facility] Tdap IM Intramuscular 03/05/2018 Administered SOCIAL [...] mellitus with unspecified complications (E11.8) Active confirmed 28949234 Problem Morbid (severe) obesity due to excess calories (E66.01) Active confirmed Morbid obesity (disorder) (268860890) Problem Hyperlipidemia, unspecified (E78.5) Active confirmed Hyperlipidemia (52667589) Problem Periodic limb movement disorder (G47.61) Active confirmed 623030561 Problem Other chronic pain (G89.29) Active confirmed 35456076 Problem Essential (primary) hypertension (I10) Active confirmed 10108781 Problem Paroxysmal atrial fibrillation (I48.0) Active confirmed Paroxysmal atri al fibrillation (907163372) Problem Acute nasopharyngitis [common cold] (J00) Active confirmed Common cold (31947398) Problem Chronic obstructive pulmonary disease with (acute) exacerbation (J44.1) Active confirmed Acute exacerbation of chronic obstructive airways disease (391705677) Problem Chronic obstructive pulmonary disease, unspecified (J44.9) Active confirmed Chronic obstructive lung disease (68522314) Problem Encounter for general adult medical examination without abnormal findings (Z00.00) Active confirmed 661843889 Problem Morbid obesity (E66.01) Active confirmed Morbid obesity (783484630) Problem 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, unspecified whether jail insulin use (E11.8) Active confirmed Disorder due to type 2 diabetes mellitus (008557130) Problem Hyperlipidemia, unspecified hyperlipidemia type (E78.5) Active confirmed 09541609 Problem Acquired hypothyroidism (E03.9) Active confirmed 618415805 Problem Prostate cancer (C61) Active confirmed 629896513 Problem Vitamin D deficiency (E55.9) Active confirmed 93885288 Problem Elevated PSA (R97.20) Active confirmed 871601501 Problem Blood in stool (K92.1) Active confirmed 507386722 Problem ENE (obstructive sleep apnea) (G47.33) Active confirmed 50739495 Problem BMI 40.0-44.9, adult (Z68.41) Active confirmed 541011796 Problem Chronic anticoagulation (Z79.01) Active confirmed 186725012 Problem Type 2 diabetes mellitus without complication, without long-term current use of insulin (E11.9) Active confirmed 143784178 Problem Body mass index [BMI] 45.0-49.9, adult (Z68.42) Active confirmed 855976874 Problem Cough (R05.9) Active confirmed Cough (4 5069205) Problem Memory changes (R41.3) Active confirmed 797269010 Problem Sciatic radiculitis (M51.17) Active confirmed 16434012 Problem Lumbar pain (M54.50) Active confirmed 686206005 Problem Mood disorder (F39) Active confirmed Mood disorder (92622896) Problem ENE on CPAP (G47.33) Active confirmed 10719768 Problem Abnormal white blood cell (WBC) (D72.9) Active confirmed White blood lorne l disorder (19228579) Problem Compulsive buying (F42.8) Active confirmed 7510906 VITAL SIGNS Heart Rate 70 /min 03/04/2025 Temperature 98.5 degrees Fahrenheit 01/13/2025 Blood pressure diastolic 78 mm Hg 03/04/2025 Oximetry 98 % 03/04/2025 Height 69 in 03/04/2025 Blood pressure systolic 130 mm Hg 03/04/2025 Weight 268 lbs 03/04/2025 BMI 39.57 kg/m2 03/04/2025 Encounters Encounter Location Date Provider Diagnosis [facility] [address] [facility] [address] [place] [address] 06/16/2024 MARIBELL BROOKS Type 2 diabetes mellitus with unspecified complications E11.8 ; Essential (primary) hypertension I10 ; Hyperlipidemia, unspecified hyperlipidemia type E78.5 and Acquired hypothyroidism E03.9 [facility] [address] [place] [address] 07/22/2024 DELMAR ROBLES Blood in stool K92.1 ; Paroxysmal atrial fibrillation I48.0 ; Hyperlipidemia, unspecified E78.5 ; 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, unspecified whether jail insulin use E11.8 ; Acquired hypothyroidism E03.9 and Type 2 diabetes mellitus without complication, without long-term current use of insulin E11.9 [address] [facility] [address] [place] [address] 08/19/2024 DELMAR ROBLES Paroxysmal atrial fibrillation I48.0 ; Blood in stool K92.1 ; Hyperlipidemia, unspecified E78.5 ; 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 [address] 10/01/2024 Caridad Svrcek Acute cellulitis L03 .90 ; Other chronic pain G89.29 ; Low back pain, unspecified M54.50 ; Chronic obstructive pulmonary disease, unspecified J44.9 and 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, 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 11/05/2024 Caridad Svrcek Low back pain, unspecified M54.50 ; Spinal stenosis of lumbar region with neurogenic claudication M48.062 ; Other chronic pain G89.29 ; Acute cellulitis L03.90 ; Paroxysmal atrial fibrillation I48.0 and Chronic anticoagulation Z79.01 [address] 12/28/2024 Caridad Svrcek Memory changes R41.3 and Compulsive buying F42.8 [address] 01/12/2025 Caridad Svrcek Memory changes R41.3 ; Compulsive buying F42.8 ; ENE on CPAP G47.33 and Periodic limb movement disorder G47.61 [facility] [address] [place] [address] 01/13/2025 TIERRA MICHELLE Acute URI J06.9 ; Na naye congestion R09.81 and Body aches R52 [address] 02/16/2025 Caridad Svrcek Memory changes R41.3 ; Acute bilateral thoracic back pain M54.6 ; Compulsive buying F42.8 ; ENE on CPAP G47.33 and Periodic limb movement disorder G47.61 [address] [facility] [address] [place] [address] 03/04/2025 Caridad Svrcek Compression fracture of T8 vertebra, initial encounter S22.060A [address] [facility] [address] [place] [address] 04/14/[address] [facility] [address] [place] [address] 06/17/[address] [facility] [address] [place] [address] 06/24/[address] [facility] [address] [place] [address] 06/30/[address] [facility] [address] [place] [address] [place] [address] 07/22/2024 DELMAR ROBLES [address] [facility] [address] [place] [address] 09/17/[address] [facility] [address] [place] [address] 10/26/[address] [facility] [address] [place] [address] [place] [address] 11/13/2024 TALAL BROOKS [address] [facility] [address] [place] [address] 12/30/2024 Caridad Svrcek Memory changes R41.[address] [facility] [address] [place] [address] [place] [address] 12/30/2024 TALAL BROOKS [address] [facility] [address] [place] [address] 01/07/2025 Caridad Svrcek Abnormal white blood cell (WBC) D72.9 [address] [facility] [address] [place] [address] 01/11/[address] [facility] [address] [place] [address] [place] [address] 01/12/2025 TALAL BROOKS [address] [facility] [address] [place] [address] 01/12/2025 Caridad Svrcek [address] [facility] [address] [place] [address] 01/13/[address] [facility] [address] [place] [address] [place] [address] 01/13/[address] [facility] [address] [place] [address] 01/13/[address] [facility] [address] [place] [address] [place] [address] 01/15/[address] [facility] [address] [place] [address] [place] [address] 01/16/[address] [facility] [address] [place] [address] [place] [address] 01/20/[address] [facility] [address] [place] [address] [place] [address] 02/02/[address] [facility] [address] [place] [address] [place] [address] 02/02/2025 Caridad Svrcek [address] [facility] [address] [place] [address] 02/16/2025 Caridad Svrcek [address] [facility] [address] [place] [address] 02/22/[address] [facility] [address] [place] [address] [place] [address] 03/04/2025 Caridad Svrcek [address] [facility] [address] [place] [address] 03/29/2025 Caridad Svrcek [address] [facility] [address] [place] [address] 04/11/2024 TALAL BROOKS [address] [facility] [address] [place] [address] 05/14/2024 TALAL BROOKS [address] [facility] [address] [place] [address] 07/20/2024 TALAL BROOKS [address] [facility] [address] [place] [address] 08/18/2024 TALAL BROOKS [address] [facility] [address] [place] [address] 09/29/2024 [place] ALDR[place] [address] [facility] [address] [place] [address] 11/06/2024 Caridad Svrcek [address] [facility] [address] [place] [address] 12/09/2024 Caridad Svrcek [address] [facility] [address] [place] [address] 12/14/2024 Caridad Svrcek [address] [place] [address] 12/21/2024 Caridad Svrcek [address] [facility] [address] [place] [address] 01/13/2025 MARIBELL BROOKS [address] [facility] [address] [place] [address] 02/08/2025 Caridad Svrcek [address] [facility] [address] [place] [address] 02/09/2025 Caridad Svrcek [address] [address] 03/03/2025 Caridad Svrcek [address] [address] 03/04/2025 Caridad Svrcek ASSESSMENTS Encounter Date Diagnosis [...] of regular follow-up with primary 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 Patient is doing [...] reviewed. Dictation completed with the use of [employer] voice recognition software, prone to medical misidentifications [...] reviewed. 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 Reviewed return to [...] with [facility], due to see them again 10/21/2024. Currently taking Zytiga with prednisone. Plan to request records from [facility] for continued evaluation. #Hypothyroidism: Clinically the [...] reviewed. Dictation completed with the use of [employer] voice recognition software, prone to medical misidentifications [...] and follows up with Coumadin clinic at [place].. Possible interaction with Coumadin and Keflex and [...] and follows up with Coumadin clinic at [place].. Possible interaction with Coumadin and Keflex and [...] symptoms. #Chronic low back pain. Followed by [facility] pain clinic and is [...] symptoms. #Chronic low back pain. Followed by [facility] pain clinic and is [...] for. #Chronic low back pain. Followed by [facility] pain clinic and is [...] Coumadin and managed by Coumadin clinic in [place]. Most recent INR yesterday was 2.1. Currently on Coumadin 5 mg 4 days a week and 2.5 mg 3 days a week. Dose has been stable for several years. Case discussed with collaborating physician Moustapha Brooks who reviewed the assessment and plan. Chart, medications, labs, vital signs reviewed. Dictation was accomplished with the use of [employer] voice recognition software, prone to medical misidentifications [...] for. #Chronic low back pain. Followed by [facility] pain clinic and is [...] Coumadin and managed by Coumadin clinic in [place]. Most recent INR yesterday was 2.1. Currently on Coumadin 5 mg 4 days a week and 2.5 mg 3 days a week. Dose has been stable for several years. Case discussed with collaborating physician Moustapha Brooks who reviewed the assessment and plan. Chart, medications, labs, vital signs reviewed. Dictation was accomplished with the use of [employer] voice recognition software, prone to medical misidentifications [...] lab workup. He is interested in seeing [facility] and is requesting a referral today. Will also refer to [facility] neurology and send for brain MRI. Follow-up pending results. #Compulsive buying. He has had an issue with compulsive spending for many years resulting in significant financial issues. He is currently on Celexa and would like to pursue further help with psychiatry and therapy. Requesting referral to [facility] behavioral health. His family is very involved and supportive. As above we will do further workup with labs imaging and referral. Case discussed with collaborating physician Moustapha Brooks who reviewed the assessment and plan. Chart, medications, labs, vital signs reviewed. Dictation was accomplished with the use of [employer] voice recognition software, prone to medical misidentifications [...] lab workup. He is interested in seeing [facility] and is requesting a referral today. Will also refer to [facility] neurology and send for brain MRI. Follow-up pending results. #Compulsive buying. He has had an issue with compulsive spending for many years resulting in significant financial issues. He is currently on Celexa and would like to pursue further help with psychiatry and therapy. Requesting referral to [facility]. His family is very involved and supportive. As above we will do further workup with labs imaging and referral. Case discussed with collaborating physician Moustapha Brooks who reviewed the assessment and plan. Chart, medications, labs, vital signs reviewed. Dictation was accomplished with the use of [employer] voice recognition software, prone to medical misidentifications [...] Followed by pulmonology. #Periodic limb movement disorder. Product Expert wanted to start him on ropinirole for restless legs. He has declined to do so. We did discuss effect of poor sleep on memory and mood. Will request copy of sleep study to review. Case discussed with collaborating physician Moustapha Brooks who reviewed the assessment and plan. Chart, medications, labs, vital signs reviewed. Dictation was accomplished with the use of [employer] voice recognition software, prone to medical misidentifications [...] Followed by pulmonology. #Periodic limb movement disorder. Product Expert wanted to start him on ropinirole for restless legs. He has declined to do so. We did discuss effect of poor sleep on memory and mood. Will request copy of sleep study to review. Case discussed with collaborating physician Moustapha Brooks who reviewed the assessment and plan. Chart, medications, labs, vital signs reviewed. Dictation was accomplished with the use of [employer] voice recognition software, prone to medical misidentifications [...] Dictation was accomplished with the use of [employer] voice recognition software, prone to medical misidentifications [...] Dictation was accomplished with the use of [employer] voice recognition software, prone to medical misidentifications [...] Dictation was accomplished with the use of [employer] voice recognition software, prone to medical misidentifications [...] Dictation was accomplished with the use of [employer] voice recognition software, prone to medical misidentifications [...] fracture. T8. CT ordered by specialist in [place] reviewd. Planning for Kyphoplasty in [place]- awaiting appt. Will discuss with his specialist this afternoon. Tramadol ineffective for pain control. Unfortunately, he is traveling to [place] Saturday with his grandchildren to go to [place]. Discussed No rides, lifting etc. He will be using a scooter while there. WIll trial Journavx for pain control. Discussed signs/symptoms to monitor for. He will let me know once he has kyphoplasty appt. Case discussed with collaborating physician Moustapha Brooks who reviewed the assessment and plan. Chart, medications, labs, vital signs reviewed. Dictation was accomplished with the use of [employer] voice recognition software, prone to medical misidentifications [...] symptoms. #Chronic low back pain. Followed by [facility] pain clinic and is [...] Dictation was accomplished with the use of [employer] voice recognition software, prone to medical misidentifications [...] Dictation was accomplished with the use of [employer] voice recognition software, prone to medical misidentifications [...] Followed by pulmonology. #Periodic limb movement disorder. Product Expert wanted to start him on ropinirole for restless legs. He has declined to do so. We did discuss effect of poor sleep on memory and mood. Will request copy of sleep study to review. Case discussed with collaborating physician Moustapha Brooks who reviewed the assessment and plan. Chart, medications, labs, vital signs reviewed. 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 Reviewed return to [...] with [facility], due to see them again 10/21/2024. Currently taking Zytiga with prednisone. Plan to request records from [facility] for continued evaluation. #Hypothyroidism: Clinically the [...] reviewed. Dictation completed with the use of [employer] voice recognition software, prone to medical misidentifications [...] for. #Chronic low back pain. Followed by [facility] pain clinic and is [...] Coumadin and managed by Coumadin clinic in [place]. Most recent INR yesterday was 2.1. Currently on Coumadin 5 mg 4 days a week and 2.5 mg 3 days a week. Dose has been stable for several years. Case discussed with collaborating physician Moustapha Brooks who reviewed the assessment and plan. Chart, medications, labs, vital signs reviewed. Dictation was accomplished with the use of [employer] voice recognition software, prone to medical misidentifications [...] and follows up with Coumadin clinic at [place].. Possible interaction with Coumadin and Keflex and [...] reviewed. 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 Reviewed return to [...] with [facility], due to see them again 10/21/2024. Currently taking Zytiga with prednisone. Plan to request records from [facility] for continued evaluation. #Hypothyroidism: Clinically the [...] reviewed. Dictation completed with the use of [employer] voice recognition software, prone to medical misidentifications [...] of regular follow-up with primary 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 Patient is doing [...] of regular follow-up with primary 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 Patient is doing [...] reviewed. Dictation completed with the use of [employer] voice recognition software, prone to medical misidentifications [...] and follows up with Coumadin clinic at [place].. Possible interaction with Coumadin and Keflex and patient has been educated and last INR was 1.8 and has follow-up with Coumadin clinic. 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 Reviewed return to [...] with [facility], due to see them again 10/21/2024. Currently taking Zytiga with prednisone. Plan to request records from [facility] for continued evaluation. #Hypothyroidism: Clinically the [...] reviewed. Dictation completed with the use of [employer] voice recognition software, prone to medical misidentifications [...] symptoms. #Chronic low back pain. Followed by [facility] pain clinic and is [...] for. #Chronic low back pain. Followed by [facility] pain clinic and is [...] Coumadin and managed by Coumadin clinic in [place]. Most recent INR yesterday was 2.1. Currently on Coumadin 5 mg 4 days a week and 2.5 mg 3 days a week. Dose has been stable for several years. Case discussed with collaborating physician Moustapha Brooks who reviewed the assessment and plan. Chart, medications, labs, vital signs reviewed. Dictation was accomplished with the use of [employer] voice recognition software, prone to medical misidentifications [...] Followed by pulmonology. #Periodic limb movement disorder. Product Expert wanted to start him on ropinirole for restless legs. He has declined to do so. We did discuss effect of poor sleep on memory and mood. Will request copy of sleep study to review. Case discussed with collaborating physician Moustapha Brooks who reviewed the assessment and plan. Chart, medications, labs, vital signs reviewed. Dictation was accomplished with the use of [employer] voice recognition software, prone to medical misidentifications [...] Dictation was accomplished with the use of [employer] voice recognition software, prone to medical misidentifications [...] Dictation was accomplished with the use of [employer] voice recognition software, prone to medical misidentifications [...] symptoms. #Chronic low back pain. Followed by [facility] pain clinic and is [...] for. #Chronic low back pain. Followed by [facility] pain clinic and is [...] Coumadin and managed by Coumadin clinic in [place]. Most recent INR yesterday was 2.1. Currently on Coumadin 5 mg 4 days a week and 2.5 mg 3 days a week. Dose has been stable for several years. Case discussed with collaborating physician Moustapha Brooks who reviewed the assessment and plan. Chart, medications, labs, vital signs reviewed. 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 Reviewed return to [...] with [facility], due to see them again 10/21/2024. Currently taking Zytiga with prednisone. Plan to request records from [facility] for continued evaluation. #Hypothyroidism: Clinically the [...] reviewed. Dictation completed with the use of [employer] voice recognition software, prone to medical misidentifications and grammatical errors. All errors are unintentional. Although the practitioner does try to identify and correct errors, some may be present. Please do not hesitate to contact the practitioner for clarification. 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 Hyperlipidemia and back pain stable and patient will continue with current medications for COPD patient is on inhalers.. He has lost 30 pounds with diet and exercise he also is on Coumadin and follows up with Coumadin clinic at [place].. Possible interaction with Coumadin and Keflex and [...] reviewed. Dictation completed with the use of [employer] voice recognition software, prone to medical misidentifications [...] of regular follow-up with primary 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 Patient is doing [...] reviewed. Dictation completed with the use of [employer] voice recognition software, prone to medical misidentifications [...] for. #Chronic low back pain. Followed by [facility] pain clinic and is [...] Coumadin and managed by Coumadin clinic in [place]. Most recent INR yesterday was 2.1. Currently on Coumadin 5 mg 4 days a week and 2.5 mg 3 days a week. Dose has been stable for several years. Case discussed with collaborating physician Moustapha Brooks who reviewed the assessment and plan. Chart, medications, labs, vital signs reviewed. 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 Reviewed return to [...] with [facility], due to see them again 10/21/2024. Currently taking Zytiga with prednisone. Plan to request records from [facility] for continued evaluation. #Hypothyroidism: Clinically the [...] reviewed. 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 Reviewed return to [...] with [facility], due to see them again 10/21/2024. Currently taking Zytiga with prednisone. Plan to request records from [facility] for continued evaluation. #Hypothyroidism: Clinically the [...] reviewed. Dictation completed with the use of [employer] voice recognition software, prone to medical misidentifications [...] VITAMIN D 12/28/2024 CBC (COMPLETE BLOOD COUNT) 09/21/2020 CBC (COMPLETE [...] Name:Caridad Conn, 0 05/11/2025 10:00:00 AM, [address] [facility] [place], [facility] [address], [place], [address], Insurance Providers Payer Name Payer Address Payer Phone Subscriber Number Group Number Insured Name Patient Relationship to Insured Coverage Start Date Coverage End Date Medicare Part B J14 [address] [place] [id number] JOSE MANUEL KAM Self - patient is the insured 3 [employer] [address] [place] [address] [phone] [id number] JOSE MANUEL KAM Self - patient is the insured MEDICATIONS ADMINISTERED Medication Instructions Date of Administration Dosage Notes [facility] B12 INJECTION 06/11/2022 [id number] MEDICAL (GENERAL) [...]
--- OUTSIDE RECORDS SUMMARY | 2025-04-05 15:07 | XMS_ITS ---
Author Organization [facility] Address [address] [place] [address] Care Team Providers Care Theology Professor Name Role Phone Samanta Thomas Unavailable [phone] REASON FOR VISIT Journavx Encounters Encounter Location Date Provider Diagnosis [address] [facility] [address] [facility] [address] [place] [address] 03/04/2025 Samanta Knightosito PLAN OF TREATMENT Next Appt Details Provider Name:Samanta Thomas, 0 05/11/2025 10:00:00 AM, [address], [place], [address], Progress Notes * JOSE MANUEL KAM ADOB:[birth year] (69 yo M)Acc No.[id number]:03/04/2025 Patient:??JOSE MANUEL KAM :1955?Age:69 Y?Sex:Cris castro Address:[address] [place] [address] * true * Date:??
--- OUTSIDE RECORDS SUMMARY | 2025-04-05 15:07 | XMS_ITS ---
Author Organization [facility] Address [address] [place] [phone] Care Team Providers Care Admissions Gate Attendant Name Role Phone Samanta Thomas Unavailable [phone] ALLERGIES No Known Allergies REASON FOR VISIT [...] Location Date Provider Diagnosis [address] [facility] [address] [place] [address] 03/04/2025 Samanta Thomas Compression fracture of T8 vertebra, initial encounter S22.060A ASSESSMENTS Encounter Date Diagnosis Assessment Notes Treatment Notes Treatment Clinical Notes Section Notes 03/04/2025 Compression fracture of T8 vertebra, initial encounter (ICD-10 - S22.060A) #Compression fracture. T8. CT ordered by specialist in [place] review. Planning for Kyphoplasty in [place]- awaiting appt. Will discuss with his specialist this afternoon. Tramadol ineffective for pain control. Unfortunately, he is traveling to [place] Saturday with his grandchildren to go to [employer]. Discussed No rides, lifting etc. He will be using a scooter while there. WIll trial Journavx for pain control. Discussed signs/symptoms to monitor for. He will let me know once he has kyphoplasty appt. Case discussed with collaborating physician Moustapha Brooks who reviewed the assessment and plan. Chart, medications, labs, vital signs reviewed. Dictation was accomplished with the use of [employer] voice recognition software, prone to medical misidentifications [...] Name:Samanta Thomas, 0 05/11/2025 10:00:00 AM, [address] [facility], [facility] [address], [place], [address], Progress Notes * ALAN KAM ADOB:[birth year] (69 yo M)Acc No.[id number]:03/04/2025 Progress Notes Patient:??ALAN KAM A Provider:??Samanta Thomas PA-C :1955?Age:69 Y?Sex:Ma le Date:03/04/2025 Address:[address] [place], [place] [id number] Subjective: * Chief Complaints: * ?1. Patient [...] pain and spoke with his specialist in [place]. They ordered CT of thoracic spine, which shows moderate T8 compression fracture. The computer network specialist in [place] at [facility] because he has chronic lumbar spine pain and they were planning to do surgery. He is now waiting to discuss with them in regards to scheduling kyphoplasty. He plans to speak with them this afternoon. He has been on tramadol for chronic pain however this has not been helpful for his current thoracic pain. He will be traveling to [place] on Saturday to go to [employer] with his grandchildren. Be able to do [...] T8. C T ordered by specialist in [facility]. Planning for Kyphoplasty in [place]- awaiting appt. Will discuss with his specialist this afternoon. Tramadol ineffective for pain control. Unfortunately, he is traveling to [place] Saturday with his grandchildren to go to [employer]. Discussed No rides, lifting etc. He will be using a scooter while there. WIll trial Journavx for pain control. Discussed signs/symptoms to monitor for. He will let me know once he has kyphoplasty appt. Case discussed with collaborating physician Moustapha Brooks who reviewed the assessment and plan. Chart, medications, labs, vital signs reviewed. Dictation was accomplished with the use of [employer] voice recognition software, prone to medical misidentifications [...] * Images: Billing Information: * Visit Code:?? 18223 Office Visit, Est Pt., Level 4. Modifiers: [...] pain and spoke with his specialist in [place]. They ordered CT of thoracic spine, which shows moderate T8 compression fracture. The computer network specialist in [place] at [facility] because he has chronic lumbar spine pain and they were planning to do surgery. He is now waiting to discuss with them in regards to scheduling kyphoplasty. He plans to speak with them this afternoon. He has been on tramadol for chronic pain however this has not been helpful for his current thoracic pain. He will be traveling to [place] on Saturday to go to [employer] with his grandchildren. Be able to do [...]
--- OUTSIDE RECORDS SUMMARY | 2025-04-05 15:07 | XMS_ITS | Encounter Summary ---
Author Organization [facility] Address [address] [place] [address] Care Team Providers Care Distributed Energy Systems Consultant Name Role Phone Kirstin Brooks MD Primary Care Provider [phone] Reason for Visit * Reason Onset Date Comments Medical Records 03/18/2025 Encounter Details Date Type Department Care Team (Late st Contact Info) Description 03/18/2025 Telephone [facility] [address] [facility] [address] [place] [phone] Kirstin Brooks MD [address] [place] [id number] Medical Records Social History Tobacco Use Types Packs/Day Years [...] on file Sexual Orientation Not on file documented as of this encounter Progress Notes * Tasneem Goss - 03/31/2025 3:58 PM EDT Faxed 03/08/2023 Echo report, 03/08/2023 Holter Report, 03/20/2024 Office Note and EKG to [facility] Att: Geni at [phone] on 03/18/2025 documented in this encounter Plan of Treatment Not on file documented as of this encounter Visit Diagnoses Not on filedocumented in this encounter Care Teams Distributed Energy Systems Consultant Relationship Specialty Start Date End Date Kirstin Brooks MD [address] [place] [id number] PCP - General Internal Medicine 01/11/25 documented as of this encounter
--- OUTSIDE RECORDS SUMMARY | 2025-04-05 15:07 | XMS_ITS | Clinical Summary ---
Author Organization [facility] Address [address] [place] [address] Care Team Providers Care Elementary Educator Name Role Phone Kirstin Brooks MD Primary Care Provider [phone] Allergies Active Allergy Reactions Criticality Noted Date [...] age to complete this topic Care Teams Elementary Educator Relationship Specialty Start Date End Date Kirstin Brooks MD [address] [place] [address] PCP - General Internal Medicine 03/11/19 KIM LANDAVERDE Referring Physician Orthopedic Surgery 12/26/15
--- OUTSIDE RECORDS SUMMARY | 2025-04-05 15:08 | XMS_ITS | Clinical Summary ---
Author Organization [facility] Address [address] [place] [address] Phone Care Team Providers Care Rib Knitter Name Role Phone Kirstin Brooks MD Primary Care Provider [phone] Allergies No known active allergies Medications tiZANidine [...] 08/28/2021 Heart failure with preserved ejection fraction ([facility] V24, [facility] V28) 08/28/2021 HLD (hyperlipidemia) 02/21/2021 PVC's (premature ventricular contractions) 02/21 HTN (hypertension) 12/29/2020 PAF (paroxysmal atrial fibri llation) ([facility] V24, [facility] V28) 12/29/2020 Type II or unspecified type diabetes mellitus with ketoacidosis, uncontrolled(250.12) ([facility] V24, [facility] V28) 12/29/2020 Encounters Date Type Department Care Team Description 03/18/2025 Telephone [facility] - [facility] [address] [place] [address] Kirstin Brooks MD Medical Records 03/09/2025 Telephone [facility] Cardiology [facility] [address] [place] [address] Luis Montoya MD Procedure (Coumadin hold?) 02/16/2025 11:31 AM EDT - 02/16/2025 11:59 PM EDT Hospital Encounter [facility] Xray [address] [place] [phone] Pain in thoracic spine Discharge Disposition: Home or Self Care 02/16/2025 11:10 AM EDT - 02/16/2025 11:59 PM EDT Hospital Encounter [facility] [address] [place] [phone] Pain in thoracic spine Discharge Disposition: Home or Self Care from Last 3 Months Immunizations Name Administration Dates Next Due Pfizer SARS-CoV-2 COVID-19, mRNA, LNP-S, preservative free 01/12/2021,12/22/2020 Surgical History Surgery Date Site/Laterality Comments GASTRIC BAND ADJUSTMENT and removal CARDIOVERSION CARDIAC ABLATION CERVICAL FUSION Medical History Medical History Date Comments Hypertension Hyperlipidemia Diabetes mellitus ([facility] V24, [facility] V28) GERD (gastroesophageal reflux disease) Atrial fibrillation ([facility] V24, [facility] V28) Sleep apnea COPD (chronic obstructive pulmonary disease) ([facility] V24, [facility] V28) Asthma Prostate cancer ([facility] V24, [facility] V28) Social History Tobacco Use Types Packs/Day [...] 11/16/2022 COVID-19 Vaccine (8 - Pfizer risk ) 03/16/2025 09/15/2024, 12/06/2023, 09/03/2022, Additional history exists Falls [...] Extensive atherosclerotic arterial calcification is noted. Code 53623 -------- FINAL REPORT -------- Dictated By: Gregory Reyes Dictated Date: 02/16/2025 11:45 ET Assigned Physician: Gregory Reyes Reviewed and Electronically Signed By: Gregory Reyes Signed Date: 02/16/2025 11:49 ET Workstation ID: [id number] Transcribed By: Self Edit Transcribed Date: 02/16/2025 [...] Extensive atherosclerotic arterial calcification is noted. Code 07729 -------- FINAL REPORT -------- Dictated By: Gregory Reyes Dictated Date: 02/16/2025 11:45 ET Assigned Physician: Gregory Reyes Reviewed and Electronically Signed By: Gregory Reyes Signed Date: 02/16/2025 11:49 ET Workstation ID: [id number] Transcribed By: Self Edit Transcribed Date: 02/16/2025 [...] the mid and lower thoracic spine. Code 23518 -------- FINAL REPORT -------- Dictated By: Gregory Reyes Dictated Date: 02/16/2025 11:42 ET Assigned Physician: Gregory Reyes Reviewed and Electronically Signed By: Gregory Reyes Signed Date: 02/16/2025 11:45 ET Workstation ID: [id number] Transcribed By: Self Edit Transcribed Date: 02/16/2025 [...] throughout the mid and lowerthoracic spine. Code 77448 -------- FINAL REPORT -------- Dictated By: Gregory Reyes Dictated Date: 02/16/2025 11:42 ET Assigned Physician: Gregory Reyes Reviewed and Electronically Signed By: Gregory Reyes Signed Date: 02/16/2025 11:45 ET Workstation ID: [id number] Transcribed By: Self Edit Transcribed Date: 02/16/2025 11:42 ET us Samanta MONTESINOS IMG XR PROCEDURES Final Result * (ABNORMAL) CBC auto differential (01/11/2025 10:26 AM EST) WBC 8.1 4.8 - 10.8 K/[facility] LAB HEMETOLOGY METHOD 01/11/2025 11:03 AM EST [facility] RBC 4.20(L) 4.50 - 5.50 /[facility] LAB HEMETOLOGY METHOD 01/11/2025 11:03 AM [facility] [...] 11:03 AM [facility] Monocytes Absolute 0.70 0.20 - 1.00 K/mcL LAB HEMETOLOGY METHOD 01/11/2025 11:03 AM [facility] Eosinophils Absolute 0.15 0.00 - 0.50 K/mcL LAB HEMETOLOGY METHOD 01/11/2025 11:03 AM [facility] Basophils Absolute 0.07 0.00 - 0.20 K/mcL LAB HEMETOLOGY METHOD 01/11/2025 11:03 AM [facility] Immature Granulocytes Absolute 0.03 0.00 - 0.03 K/mcL LAB HEMETOLOGY METHOD 01/11/2025 11:03 AM [facility] Blood Venous blood specimen / Unknown Venipuncture / Unknown 01/11/2025 10:26 AM EST 01/11/2025 10:53 AM EST Samanta MONTESINOS LAB BLOOD ORDERABLES Final Resul t [facility] [address] [place] [address], * COLONOSCOPY Anesthesia - MAC; [facility] ENDOSCOPY (10/14/2024 9:58 AM EST) Anatomical [...] 5 days. Narrative 10/14/2024 10:01 AM EST [facility] GI Patient Name: Alan Tamez Procedure Date: [...] verified by the physician, the nurse, the dermatology technician ? and the natural resources technician in the pre-procedure area in the [...] Procedure Code(s): ? --- Professional --- ? 37248, 59, Colonoscopy, flexible; with control of ? bleeding, any method ? 89007, Colonoscopy, flexible; with removal of ? tumor(s), polyp(s), or other lesion(s) by snare ? technique Diagnosis Code(s): ? --- Professional --- ? D12.3, Benign neoplasm of transverse colon (hepatic ? flexure or splenic flexure) ? K92.1, Melena (includes Hematochezia) CPT copyright 2020 [employer]. All rights reserved. The codes documented in this report are preliminary and upon php programmer review may be revised to meet current compliance requirements. Garcia Vigil MD 10/14/2024 10:01:37 AM This report has been signed electronically.Garcia Vigil MD Number of Addenda: 0 Note Initiated On: 10/14/2024 9:30 AM Scope Withdrawal Time: 0 hours 17 minutes 21 seconds Scope In: 9:36:33 AM Scope Out: 9:57:43 AM ? Endoscopy Department at [facility] - [address] [place] [address], ? [place] [address] Procedure Note Garcia Vigil MD - 10/14/2024 [facility] GI Patient Name: Alan Tamez Procedure Date: [...] the physician, the nurse, theanesthetist and the natural resources technician in the pre-procedure area in the [...] loss wasminimal. Procedure Code(s): --- Professional --- 72065, 59, Colonoscopy, flexible; with control of bleeding, any method 69440, Colonoscopy, flexible; with removal of tumor(s), polyp(s), or other lesion(s) by snare technique Diagnosis Code(s): --- Professional --- D12.3, Benign neoplasm of transverse colon (hepatic flexure or splenic flexure) K92.1, Melena (includes Hematochezia) CPT copyright 2020 [employer]. All rights reserved. The codes documented in this report are preliminary and upon php programmer reviewmay be revised to meet current compliance requirements. Garcia Vigil MD 10/14/2024 10:01:37 AM This report has been signed electronically.Garcia Vigil MD Number of Addenda: 0 Note Initiated On: 10/14/2024 9:30 AM Scope Withdrawal Time: 0 hours 17 minutes 21 seconds Scope In: 9:36:33 AM Scope Out: 9:57:43 AM Endoscopy Department at [address] [address] IMPRESSION: - Three 2 to 6 mm [...] Recently Relevant to Health Maintenance [place] [address] MEDICARE [facility] [place] [address] Care Teams Rib Knitter Relationship Specialty Start Date End Date Kirstin Brooks MD [address] [place] [address] [place] [id number] PCP - General Internal Medicine 01/11/25
--- OUTSIDE RECORDS SUMMARY | 2025-04-05 15:08 | XMS_ITS ---
Author Organization [facility] Address [address] [place] [address] Care Team Providers Care Body Worker Name Role Phone Samanta Thomas Unavailable [phone] REASON FOR VISIT critical INR Encounters Encounter Location Date Provider Diagnosis [address] [facility] [address] [facility] [address] [place] [address] 03/29/2025 Samantaabigail [facility] PLAN OF TREATMENT Next Appt Details Provider Name:Samanta Thomas, 0 05/11/2025 10:00:00 AM, [address], [place], [address], Progress Notes * JOSE MANUEL KAM ADOB:[birth year] (69 yo M)Acc No.[id number]:03/29/2025 Patient:??JOSE MANUEL KAM :1955?Age:69 Y?Sex:Cris castro Address:[address] [place] [address] * true * Date:??
== END 2025-04-05 14:05 | disposition home or self-care (01) ==
LOC: HO.ACS 13:38
PROVIDERS: PCP Internal Medicine; Visit Provider Internal Medicine Medical Oncology
DX: Z79.01 Long term (current) use of anticoagulants (principal)

== ENCOUNTER → 2025-04-05 13:38 | Outpatient (BNVA) | payer MEDICARE, SELFPAY | PROVIDERS: PCP Internal Medicine; Visit Provider Internal Medicine Medical Oncology | DX: I48.92 Unspecified atrial flutter (principal); Z79.01 Long term (current) use of anticoagulants; Z51.81 Encounter for therapeutic drug level monitoring | CPT/HCPCS: 85610; 99211 ==

== ENCOUNTER 2025-05-04 13:49 | Outpatient (AMB) | payer MEDICARE, SELFPAY ==
[2025-05-04 13:57] LABS: ~PT, ~INR - Anti Coag Clinic 2.2 (0.9-1.1)
--- NOTE | 2025-05-04 14:00 | MHC.OFFVISCO ---
Intake Intake Visit Reasons: Anticoagulation Allergies No Known Allergies Allergy (Verified 05/04/25 13:53) Medication List - Last Reconciled 05/04/25 by Donna Archer, RN abiraterone 1,000 mg PO DAILY [CALCIUM PO] cholecalciferol (vitamin D3) (Vitamin D3) PO citalopram 20 mg PO DAILY diltiazem HCl CD 300 mg PO DAILY furosemide 40 mg PO DAILY levothyroxine 100 mcg PO DAILY losartan 100 mg PO DAILY metformin mg PO nitroglycerin 0.4 mg sublingual oxycodone mg PO pantoprazole 40 mg PO DAILY pravastatin mg PO prednisone 5 mg PO DAILY tizanidine 2 mg PO BEDTIME tramadol 50 mg PO BID PRN warfarin (Jantoven) 5 mg See Protocol PO DAILY Nursing Note INR: 2.2 in therapeutic range of 2-3 Medications and supplements reviewed No changes in health, diet, medications, or supplements, Denies any signs and symptoms of bleeding or bruising or clotting. Bleeding, bruising, clotting discussed Nutritional guidance given Dose: 5mg X 4 days and 2.5mg X 3 days F/U INR: 4 weeks Patient verbalizes understanding of instructions given Coding Level of Care Code Est Patient Level 1 Diagnoses Current use of anticoagulant therapy Z79.01 Assessment & Plan Assessment & Plan (1) Current use of anticoagulant therapy: Code(s): Z79.01 - material handling supervisor (current) use of anticoagulants Category: Medical
--- OUTSIDE RECORDS SUMMARY | 2025-05-04 15:31 | XMS_ITS | Clinical Summary ---
Author Organization [facility] Address [address] [place] [address] Care Team Providers Care Voucher Examiner Name Role Phone Kirstin Brooks MD Primary Care Provider [phone] Allergies Active Allergy Reactions Criticality Noted Date [...] 2015 Fall Risk Assessment 2020 Influenza Vaccine (Season Ended) 2025 Hepatitis B Vaccines Aged Out No long er eligible based on patient's age to complete this topic RSV Ped < 20 months Aged Out No longe r eligible based on patient's age to complete this topic Care Teams Voucher Examiner Relationship Specialty Start Date End Date Kirstin Brooks MD [address] [place] [address] PCP - General Internal Medicine 03/11/19 KIM LANDAVERDE Referring Physician Orthopedic Surgery 12/26/15
== END 2025-05-04 14:01 | disposition home or self-care (01) ==
LOC: HO.ACS 13:49
PROVIDERS: PCP Internal Medicine; Visit Provider Internal Medicine Medical Oncology
DX: Z79.01 Long term (current) use of anticoagulants (principal)

== ENCOUNTER → 2025-05-04 13:49 | Outpatient (BNVA) | payer MEDICARE, SELFPAY | PROVIDERS: PCP Internal Medicine; Visit Provider Internal Medicine Medical Oncology | DX: I48.92 Unspecified atrial flutter (principal); Z79.01 Long term (current) use of anticoagulants; Z51.81 Encounter for therapeutic drug level monitoring | CPT/HCPCS: 85610; 99211 ==

== ENCOUNTER 2025-06-01 13:44 | Outpatient (AMB) | payer MEDICARE, SELFPAY ==
[2025-06-01 13:51] LABS: Prothrombin Time Whole Bld POC 28.0 sec (11.1-13.5); ~PT, ~INR - Anti Coag Clinic 2.3 (0.9-1.1)
--- NOTE | 2025-06-01 13:53 | MHC.OFFVISCO ---
Intake Intake Visit Reasons: Anticoagulation Allergies No Known Allergies Allergy (Verified 06/01/25 13:47) Medication List - Last Reconciled 06/01/25 by Donna Archer RN [CALCIUM PO] cholecalciferol (vitamin D3) (Vitamin D3) PO citalopram 20 mg PO DAILY diltiazem HCl CD 300 mg PO DAILY furosemide 40 mg PO DAILY levothyroxine 100 mcg PO DAILY losartan 100 mg PO DAILY metformin mg PO nitroglycerin 0.4 mg sublingual oxycodone mg PO pantoprazole 40 mg PO DAILY pravastatin mg PO prednisone 5 mg PO DAILY tizanidine 2 mg PO BEDTIME tramadol 50 mg PO BID PRN warfarin (Jantoven) 5 mg See Protocol PO DAILY Nursing Note INR: 2.3 in therapeutic range of 2-3 Medications and supplements reviewed No changes in health, diet, medications, or supplements, Denies any signs and symptoms of bleeding or bruising or clotting. Bleeding, bruising, clotting discussed Nutritional guidance given Dose: 5mg X 4 days and 2.5mg X 3 days (M/W/F) F/U INR: 4 weeks Patient verbalizes understanding of instructions given Coding Level of Care Code Est Patient Level 1 Diagnoses Current use of anticoagulant therapy Z79.01 Assessment & Plan Assessment & Plan (1) Current use of anticoagulant therapy: Code(s): Z79.01 - shelter (current) use of anticoagulants Category: Medical
--- OUTSIDE RECORDS SUMMARY | 2025-06-01 14:54 | XMS_ITS | Clinical Summary ---
Author Organization [facility] Address [address] [place] [address] Care Team Providers Care Shipfitter Apprentice Name Role Phone Kirstin Brooks MD Primary Care Provider [phone] Allergies Active Allergy Reactions Criticality Noted Date [...] 54 03/25/2018 1:29 PM EDT Temperature 36.7 C (98.1 F) 03/25/2018 1:29 PM EDT Respiratory Rate 19 01/27/2016 10:45 AM EST [...] age to complete this topic Care Teams Shipfitter Apprentice Relationship Specialty Start Date End Date Kirstin Brooks MD [address] [place] [address] PCP - General Internal Medicine 03/11/19 KIM LANDAVERDE Referring Physician Orthopedic Surgery 12/26/15
--- OUTSIDE RECORDS SUMMARY | 2025-06-01 14:54 | XMS_ITS | Clinical Summary ---
Author Organization [facility] Address [address] [place] [address] Phone Care Team Providers Care Lumber Marker Name Role Phone Kirstin Brooks MD Primary Care Provider [phone] Allergies No known active allergies Medications tiZANidine (ZANAFLEX) 2 mg tablet Sig - Route: Take 1 Tablet by mouth at bedtime. Active predniSONE (DELTASONE) 5 mg tablet Take [...] day at the same time. 11/20/2015 Active dilTIAZem CD (CARDIZEM CD) 300 mg 24 hr capsule TAKE 1 CAPSULE DAILY 90 capsule 1 04/07/2025 Active Active Problems Problem Noted Date Diagnosed Date Dyspnea on exertion 08/28/2021 Heart failure with preserved ejection fraction ([facility] V24, [facility] V28) 08/28/2021 HLD (hyperlipidemia) 02/21/2021 PVC's (premature ventricular contractions) 02/21 HTN (hypertension) 12/29/2020 PAF (paroxysmal atrial fibri llation) ([facility] V24, [facility] V28) 12/29/2020 Type II or unspecified type diabetes mellitus with ketoacidosis, uncontrolled(250.12) ([facility] V24, [facility] V28) 12/29/2020 Encounters Date Type Department Care Team Description 03/18/2025 Telephone [facility] - [facility] [address] [place] [address] Kirstin Brooks MD Medical Records 03/09/2025 Telephone [facility] Cardiology [facility] [address] [place] [address] Luis Montoya MD Procedure (Coumadin hold?) from Last 3 Months Immunizations Name Administration Dates Next Due Pfizer SARS-CoV-2 COVID-19, mRNA, LNP-S, preservative free 01/12/2021,12/22/2020 Surgical History Surgery Date Site/Laterality Comments GASTRIC BAND ADJUSTMENT and removal CARDIOVERSION CARDIAC ABLATION CERVICAL FUSION Medical History Medical History Date Comments Hypertension Hyperlipidemia Diabetes mellitus ([facility] V24, [facility] V28) GERD (gastroesophageal reflux disease) Atrial fibrillation ([facility] V24, [facility] V28) Sleep apnea COPD (chronic obstructive pulmonary disease) ([facility] V24, [facility] V28) Asthma Prostate cancer ([facility] V24, [facility] V28) Social History Tobacco Use Types Packs/Day [...] 66 10/14/2024 10:09 AM EST Temperature 36.3 C (97.4 F) 10/14/2024 9:59 AM EST Respiratory Rate 16 10/14/2024 10:19 AM EST Oxygen Saturation 97% 10/14/2024 10:19 AM EST Inhaled Oxygen Concentration - - Weight 124 kg (273 lb) 10/14/2024 9:16 AM EST Height 175.3 cm (5' 9 ) 10/14/2024 9:16 AM EST Body Mass Index 40.32 10/14/2024 9:16 AM EST Plan of Treatment Upcoming Encounters Date Type Department Care Team (Late st Contact Info) Description 08/24/2025 10:35 AM EDT Office Visit [facility] [address] [place] [phone] Luis Montoya MD [address] [place] [address] 02/23/2026 3:00 PM EDT [facility] [address] [facility] [address] [place] [address] Irma Patterson MD [address] [facility] [address] [place] [address] Health Maintenance Due Date Last Done Comments [...] 11/16/2022 COVID-19 Vaccine (8 - Pfizer risk 2023- season) 2025 09/15/2024, 12/06/2023, 09/03/2022, Additional history exists Influenza Vaccine (#1) 2025 , 10/10/2023, 09/03/2022, Additional history exists Falls Risk Assessment 10/14/2025 10/14/2024 Diabetes: Annual GFR (Glomerular Filtration Rate) 01/19/2026 01/19/2025, 10/21/2024, 07/29/2024, Additional history exists Hypertension/CHF/CAD Annual BMP Blood Test 01/19/2026 01/19/2025, 10/21/2024, 07/29/2024, Additional history exists Colorectal Cancer Screening: Colonoscopy 10/14/2029 10/14/2024 RSV Immunization Adult Patients Completed 10/29/2023 Zoster Vaccines Completed 06/09/2024, 04/07/2024 HIB Vaccines Aged Out No longer eligi [...] Maintenance Results * COLONOSCOPY Anesthesia - MAC; [facility] ENDOSCOPY (10/14/2024 9:58 AM EST) Anatomical Region Laterality Modality Endoscopy 10/14/2024 9:30 AM EST Impressions 10/14/2024 10:01 AM EST - Three 2 to 6 mm polyps in the transverse colon, removed with a cold snare. Resected and retrieved. - Diverticulosis in the sigmoid colon, in the descending colon and in the ascending colon. - Internal hemorrhoids. Recommendation: - Discharge patient to home. - Resume Coumadin (warfarin) at prior dose in 5 days. Narrative 10/14/2024 10:01 AM EST [facility] GI Patient Name: Alan Tamez Procedure Date: 10/14/2024 9:30 AM Date of : 1955 Age: 69 Room: ROOM 17 Gender: Male Note Status: Finalized Attending MD: Garcia Vigil MD, Procedure Date No Time: 10/14/2024 Procedure: Colonoscopy Indications: Evaluation of unexplained GI bleeding presenting with Hematochezia Providers: Garcia Vigil MD Referring MD: Garcia Vigil MD Medicines: Monitored Anesthesia Care Complications: No immediate complications. Estimated blood loss: Minimal. Estimated Blood Loss: Estimated blood loss was minimal. Procedure: Pre-Anesthesia Assessment: - Prior to the procedure, a History and Physical was performed, and patient medications and allergies were reviewed. The patient is competent. The risks and benefits of the procedure and the sedation options and risks were discussed with the patient. All questions were answered and informed consent was obtained. Patient identification and proposed procedure were verified by the physician, the nurse, the psychiatry adult physician and the injection mold tooling technician in the pre-procedure area in the endoscopy suite. Mental Status Examination: alert and oriented. Airway Examination: normal oropharyngeal airway and neck mobility. Respiratory Examination: clear to auscultation. CV Examination: normal. Prophylactic Antibiotics: The patient does not require prophylactic antibiotics. Prior Anticoagulants: The patient has taken Coumadin (warfarin), last dose was 5 days prior to procedure. ASA Grade Assessment: III - A patient with severe systemic disease. After reviewing the risks and benefits, the patient was deemed in satisfactory condition to undergo the procedure. The anesthesia plan was to use monitored anesthesia care (MAC). Immediately prior to administration of medications, the patient was re-assessed for adequacy to receive sedatives. The heart rate, respiratory rate, oxygen saturations, blood pressure, adequacy of pulmonary ventilation, and response to care were monitored throughout the procedure. The physical status of the patient was re-assessed after the procedure. After I obtained informed consent, the scope was passed under direct vision. Throughout the procedure, the patient's blood pressure, pulse, and oxygen saturations were monitored continuously. The Olympus Colonoscope was introduced through the anus and [...] to 6 mm in size. These polyps were removed with a cold snare. Resection and retrieval were complete. Estimated blood loss was minimal. Many small-mouthed diverticula were found in the sigmoid colon, descending colon and ascending colon. Internal hemorrhoids were found during retroflexion. The hemorrhoids were Grade II (internal hemorrhoids that prolapse but reduce spontaneously). Multiple medium-sized localized angiodysplastic lesions with bleeding on contact were found in the rectum. Fulguration to ablate the lesion to prevent bleeding by argon beam at 0.3 liters/minute and 20 velázquez was successful. Estimated blood loss was minimal. Procedure Code(s): --- Professional --- 83229, 59, Colonoscopy, flexible; with control of bleeding, any method 78825, Colonoscopy, flexible; with removal of tumor(s), polyp(s), or other lesion(s) by snare technique Diagnosis Code(s): --- Professional --- D12.3, Benign neoplasm of transverse colon (hepatic flexure or splenic flexure) K92.1, Melena (includes Hematochezia) CPT copyright 2020 [employer]. All rights reserved. The codes documented in this report are preliminary and upon paralegal legal secretary review may be revised to meet current compliance requirements. Garcia Vigil MD 10/14/2024 10:01:37 AM This report has been signed electronically.Garcia Vigil MD Number of Addenda: 0 Note Initiated On: 10/14/2024 9:30 AM Scope Withdrawal Time: 0 hours 17 minutes 21 seconds Scope In: 9:36:33 AM Scope Out: 9:57:43 AM Endoscopy Department at [facility] - [address] [place] [id number] Procedure Note Garcia Vigil MD - 10/14/2024 [facility] GI Patient Name: Alan Tamez Procedure [...] the physician, the nurse, theanesthetist and the injection mold tooling technician in the pre-procedure area in the [...] loss wasminimal. Procedure Code(s): --- Professional --- 28166, 59, Colonoscopy, flexible; with control of bleeding, any method 34318, Colonoscopy, flexible; with removal of tumor(s), polyp(s), or other lesion(s) by snare technique Diagnosis Code(s): --- Professional --- D12.3, Benign neoplasm of transverse colon (hepatic flexure or splenic flexure) K92.1, Melena (includes Hematochezia) CPT copyright 2020 [employer]. All rights reserved. The codes documented in this report are preliminary and upon paralegal legal secretary reviewmay be revised to meet current compliance requirements. Garcia Vigil MD 10/14/2024 10:01:37 AM This report has been signed electronically.Garcia Vigil MD Number of Addenda: 0 Note Initiated On: 10/14/2024 9:30 AM Scope Withdrawal Time: 0 hours 17 minutes 21 seconds Scope In: 9:36:33 AM Scope Out: 9:57:43 AM Endoscopy Department at [facility] - [address] [place] [phone] IMPRESSION: - Three 2 to 6 mm [...] * Annual BMP Blood Test (07/29/2024) Annual [facility] Blood Test abstracted Historical Provider HEALTH MAINTENANCE Final Result from Last 3 Months or Most Recently Relevant to [place] [address] MEDICARE [facility] [place] [address] Care Teams Lumber Marker Relationship Specialty Start Date End Date Kirstin Brooks MD [address] [place] [address] [place] [address] PCP - General Internal Medicine 01/11/25
--- OUTSIDE RECORDS SUMMARY | 2025-06-01 14:54 | XMS_ITS | Patient Health Record ---
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 Name Role Phone Caridad Conn Unavailable [phone] MARIBELL BROOKS Unavailable [phone] CALVIN ALDRIDGE Unavailable [phone] TIERRA MICHELLE Unavailable [phone] DELMAR ROBLES Unavailable [phone] Allergies No Known Allergies Results Component Value Reference Range Notes XR LUMBAR SPINE 2-3 VIEWS Reviewed date:02/16/2025 04:08:55 PM Interpretation: Performing Lab: Notes/Report: Note See Note [facility], a member of [employer] Funding Patient Name: JOSE MANUEL KAM Date of : 1955 Reason for Exam: THORACIC PAIN M54.6 Exam Date: 02/16/2025 [id number] EST Report Status: Final Ordering Provider: CARIDAD [...] Extensive atherosclerotic arterial calcification is noted. Code 83323 -------- FINAL REPOR T -------- Dictated By: Gregory Reyes Dictated Date: 02/16 11:45 ET Assigned Physician: Gregory Reyes Reviewed and Electronically Signed By: Gregory Reyes Signed Date: 025 11:49 ET Workstation ID: [id number] Transcribed By: Self Edit Transcribed Date: 02/16/2025 11:45 ET TISSUE EXAM Reviewed date:10/19/2024 10:58:13 AM [...] NB formalin fixed and paraffin embedded. XR THORACIC SPINE 2 VIEWS Reviewed date:02/16/2025 04:06:08 PM Interpretation: Performing Lab: Notes/Report: Note See Note [facility], a member of [employer] Patient Name: JOSE MANUEL KAM Date of : 1955 Reason for Exam: pain Exam Date: 02/16/2025 [id number] EST Report Status: Final Ordering Provider: CARIDAD [...] the mid and lower thoracic spine. Code 76687 -------- FINAL REPOR T -------- Dictated By: Gregory Reyes Dictated Date: 02/16 11:42 ET Assigned Physician: Gregory Reyes Reviewed and Electronically Signed By: Gregory Reyes Signed Date: 025 11:45 ET Workstation ID: [id number] Transcribed By: Self Edit Transcribed Date: 02/16/2025 11:42 ET CBC WITH AUTO DIFFERENTIAL Reviewed date:01/12/2025 09:10:01 [...] K/mcL Immature Granulocytes Absolute 0.03 0.00-0.03 K/mcL Comp. Metabolic Panel (14)-3 Reviewed date:01/07/2025 02:47:01 PM Interpretation: Performing Lab:[facility], [address] [place] [address], Phone - [phone], Director - MDJodry Notes/Report: Glucose 107 70-99 mg/dL BUN 13 [...] 0-40 IU/L ALT (SGPT) 8 0-44 IU/L Calcitriol(1,25 di-OH Vit D) -[id number] Reviewed date:01/07/2025 08:59:28 AM Interpretation: Performing Lab:[address], Phone - [phone], Director - MDdry Notes/Report: Calcitriol(1,25 di-OH Vit D) 34.0 24.8-81.5 pg/mL RPR, Rfx Qn RPR/Confirm TP-0 78937 Reviewed date:01/07/2025 09:00:04 AM Interpretation: Performing Lab:[address], Phone - [phone], Director - MDJodry Notes/Report: RPR Non Reactive Non Reactive Prothrombin Time (PT)-278729 Reviewed date:09/10/2024 04:18:33 PM Interpretation: Performing Lab:[facility], [address] [place] [address], Phone - [phone], Director - Kelvin Notes/Report: INR 1.8 0.9-1.1 Prothrombin Time 18.0 9.2-11.4 SEC Prothrombin Time (PT)-131690 Reviewed date:08/18/2024 04:33:57 PM Interpretation: Performing Lab:[facility], [address] [place] [address], Phone - [phone], Director - Kelvin Notes/Report: INR 1.8 0.9-1.1 Prothrombin Time 18.5 9.2-11.4 SEC CBC With Differential/Platel et-[id number] Reviewed date:08/18/2024 04:34:01 PM Interpretation: Performing Lab:[facility], [address] [place] [address], Phone - [phone], Director - Shannan Notes/Report: WBC 8.8 3.4-10.8 [...] Estab. % Basos 1 Not Estab. % Neutrophils (Absolute) 7.3 1.4-7.0 x10E3/uL Lymphs (Absolute) 0.7 0.7-3.1 x10E3/uL Monocytes(Absolute) 0.7 0.1-0.9 x10E3/uL Eos (Absolute) 0.1 0.0-0.4 x10E3/uL Baso (Absolute) 0.1 0.0-0.2 x10E3/uL Immature Granulocytes 1 Not Estab. % Immature Grans (Abs) 0.1 0.0-0.1 x10E3/uL CBC With Differential/Platel et-[id number] Reviewed date:2024 11:21:55 AM Interpretation: Performing Lab:[facility], [address] [facility], Phone - [phone], Director - MDJodry Notes/Report: WBC 9.9 3.4-10.8 x10E3/uL RBC 4.33 4.14-5.80 x10E6/uL Hemoglobin 13.4 13.0-17.7 g/dL Hematocrit 41.5 37.5-51.0 % MCV 96 79-97 fL MCH 30.9 26.6-33.0 pg MCHC 32.3 31.5-35.7 g/dL RDW 13.4 11.6-15.4 % Platelets 285 150-450 x10E3/uL Neutrophils 80 Not Estab. % Lymphs 11 Not Estab. % Monocytes 7 Not Estab. % Eos 1 Not Estab. % Basos 1 Not Estab. % Neutrophils (Absolute) 7.9 1.4-7.0 x10E3/uL Lymphs (Absolute) 1.1 0.7-3.1 x10E3/uL Monocytes(Absolute) 0.7 0.1-0.9 x10E3/uL Eos (Absolute) 0.1 0.0-0.4 x10E3/uL Baso (Absolute) 0.1 0.0-0.2 x10E3/uL Immature Granulocytes 0 Not Estab. % Immature Grans (Abs) 0.0 0.0-0.1 x10E3/uL CBC With Differential/Platel et-[id number] Reviewed date:01/07/2025 02:46:41 PM Interpretation: Performing Lab:[facility], [address] [facility], Phone - [phone], Director - MDJoy Notes/Report: WBC 11.5 3.4-10.8 x10E3/uL RBC 4.49 4.14-5.80 x10E6/uL Hemoglobin 13.5 13.0-17.7 g/dL Hematocrit 42.3 37.5-51.0 % MCV 94 79-97 fL MCH 30.1 26.6-33.0 pg MCHC 31.9 31.5-35.7 g/dL RDW 13.0 11.6-15.4 % Platelets 299 150-450 x10E3/uL Neutrophils 86 Not Estab. % Lymphs 6 Not Estab. % Monocytes 6 Not Estab. % Eos 1 Not Estab. % Basos 1 Not Estab. % Neutrophils (Absolute) 9.9 1.4-7.0 x10E3/uL Lymphs (Absolute) 0.7 0.7-3.1 x10E3/uL Monocytes(Absolute) 0.6 0.1-0.9 x10E3/uL Eos (Absolute) 0.1 0.0-0.4 x10E3/uL Baso (Absolute) 0.1 0.0-0.2 x10E3/uL Immature Granulocytes 0 Not Estab. % Immature Grans (Abs) 0.0 0.0-0.1 x10E3/uL TSH-[id number] Reviewed date:01/07/2025 08:59:43 AM Interpretation: Performing Lab:[facility], [address] [place] [address], Phone - [phone], [facility]Report: TSH 1.810 0.450-4.500 uIU/mL Vitamin [id number] Reviewed date:01/07/2025 08:59:09 AM Interpretation: Performing Lab:[facility], [address] [place] [address], Phone - [phone], Director - MDJodry Notes/Report: Vitamin B12 117 423-8204 pg/mL Priscilla Perez CMP14 Default A hand-written panel/profile was received from your office. In accordance with the [facility] Ambiguous Test Code Policy dated June 2003, we have completed your order by using the closest currently or formerly recognized AMA panel. We have assigned Comprehensive Metabolic Panel (14), Test Code #[id number] to this request. If this is not the testing you wished to receive on this specimen, please contact the [facility] Client Inquiry/Technical Services Department to clarify the test order. We appreciate your business. Reason For Referral Reason Colonoscopy Diagnosis 1 Colon cancer screeni (Z12.11) Referral Organization [facility] [address] Referring Provider First Name MARIBELL Referring Provider Last Name BHARGAVI Referring Provider Speciality Internal M edicine Referred Provider Specialty Gastroentero logy General Notes Dr. Mick Motta, [address] [place] [address], [place], [place], P [phone], F [phone] Clinical Notes Shara Barry 2023 09:27:35 AM >referral info faxed to Dr. Motta's office, [facility] for pt mailing copy to his home for record and self FU, Roberto De Los Santos 07/30/2024 11:01:33 AM > The patient is scheduled for an appointment on 09/01/2024 at 2 pm. Pt is aware Referral Priority Routine Reason [facility]; compulsive behaviors, mood d/o; Neurosych eval- decreased memory Diagnosis 1 Memory changes (R41. 3) Diagnosis 2 Compulsive buying (F 42.8) Diagnosis 3 Mood disorder (F39) Referral Organization [facility] [address] Referring Provider First Name MARIBELL Referring Provider Last Name BROOKS Referring Provider [facility]ity [facility] Referred Provider Specialty Neuropsychia try General Notes [facility] , (p) [phone], (f) [phone] Clinical Notes Susan Clement 08:44:35 AM > referral faxed with attachments, Roberto De Los Santos 01/13/2025 09:18:31 AM > I called the office, and they do not see patients over 65 years old with memory issues. They advised sending the referral to the memory clinic. Faxed. phone: [phone], Fax: [phone], [facility] , fax - [phone], Pt requested we also fax this referral to neuro psych attn to jorge , fax- [phone] , faxed , phone - [phone] Referral Priority Routine Reason evaluate & treat Diagnosis 1 Memory changes (R41. 3) Referral Organization [facility] [address] Referring Provider First Name Caridad Referring Provider Last Name Svrosito Referring Provider Speciality Internal edicine Referred Provider Specialty Neurology General Notes Pooja Ross 01/01 10:28:21 AM >manually faxed to [facility] nuerology at fax#[phone], their phone number is [phone] Clinical Notes Susan Clement 01:16:10 PM > manually refaxed with MRI and lab results, Roberto De Los Santos 01/13/2025 09:24:59 AM > I called the office, and they do not see patients over 65 years old with memory issues. They advised sending the referral to the memory clinic. Faxed. phone: [phone], Fax: [phone], Marcello Rao 01/14/2025 02:24:58 PM > re faxed referral to memory clinic, Mary Ellen Yanez 02/09/2025 11:07:59 AM >, faxed labs Referral Priority Routine Medications Medication SIG (Take, Route, Frequency, Duration) Notes Start Date End Date Status Furosemide 40 mg TAKE 1 TABLET DAILY Active Pravastatin Sodium 40 mg TAKE 1 TABLET D AILY orally once a day; Duration: 90 days Active predniSONE 5 MG 1 tablet Orally Once a day Active Citalopram Hydrobromide 20 mg TAKE 1 TABLET DAILY orally once a day; Duration: 90 days Active Vitamin D 50 MCG (1999) 1 tablet Oral ly Once a day Active Nitroglycerin 0.[address] 1 TABLET BY MOUTH UNDER TONGUE; Duration: 30 days As needed Active traMADol HCl 50 MG 1 tablet as needed Orally twice a day; Duration: 30 days 04/05/2025 Active Levothyroxine Sodium 100 MCG TAKE 1 TABLET DAILY IN THE MORNING ON AN EMPTY STOMACH Active metFORMIN HCl 500 mg TAKE 1 TABLET DAILY WITH A MEAL Active Losartan Potassium 100 mg TAKE 1 TABLET DAILY Active Warfarin Sodium 5 mg TAKE 1 TABLET DAILY Active Calcium 600 MG 1 tablet with meals Orally Twice a day Active Pantoprazole Sodium 40 mg TAKE 1 TABLET DAILY Active dilTIAZem HCl ER 300 MG 1 capsule Orally Once a day Active tiZANidine HCl 2 MG 1 tablet at bedtime Orally once daily; Duration: 30 days As needed as needed Active Abiraterone Acetate 500 MG one tablet Or al once daily; Duration: 30 days Active Journavx 50 MG as directed Orally; Duration: 10 days 2 tablets x 1 dose now, then 1 tablet every 12 hours x 3 doses, then 1 tablet every 24 hours thereafter for acute pain 03/04/2025 Active Immunizations Vaccine Route Administration Date Status Comme nts Tdap IM Intramuscular 03/05/2018 Administered Social History Tobacco Use: Social History Observation Description Date Details (start date - stop date) Former Smoker NA - NA Tobacco Use/Smoking Question Answer Notes Are you a former smoker Problems Problem Type SNOMED Code ICD Code Onset Dates Problem Status W/U Status Risk Notes Problem 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) Type 2 diabetes mellitus with unspecified complications (E11.8) Active confirmed Problem Morbid obesity (disorder) (125114061) Morbid (severe) obesity due to excess calories (E66.01) Active confirmed Problem Hyperlipidemia (24826784) Hyperlipidemia, unspecified (E78.5) Active confirmed Problem Periodic limb movement disorder (303638205) Periodic limb movement disorder (G47.61) Active confirmed Problem Chronic pain (87626652) Other chronic pain (G89.29) Active confirmed Problem Essential hypertension (37195078) Essential (primary) hypertension (I10) Active confirmed Problem Paroxysmal atrial fibrillation (050212756) Paroxysmal atrial fibrillation (I48.0) Active confirmed Problem Common cold (46022544) Acute nasopharyngitis [common cold] (J00) Active confirmed Problem Acute exacerbation of chronic obstructive airways disease (100932074) Chronic obstructive pulmonary disease with (acute) exacerbation (J44.1) Active confirmed Problem Chronic obstructive lung disease (04890071) Chronic obstructive pulmonary disease, unspecified (J44.9) Active confirmed Problem Adult health examination (022264846) Encounter for general adult medical examination without abnormal findings (Z00.00) Active confirmed Problem Morbid obesity (741723660) Morbid obesity (E66.01) Active confirmed Problem Disorder due to type 2 diabetes mellitus (943913832) 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, unspecified whether chcf insulin use (E11.8) Active confirmed Problem Hyperlipidaemia (25453639) Hyperlipidemia, unspecified hyperlipidemia type (E78.5) Active confirmed Problem Acquired hypothyroidism (489349379) Acquired hypothyroidism (E03.9) Active confirmed Problem Malignant tumor of prostate (378594319) Prostate cancer (C61) Active confirmed Problem Vitamin D deficiency (42120239) Vitamin D deficiency (E55.9) Active confirmed Problem Elevated PSA (645163736) Elevated PSA (R97.20) Active confirmed Problem Blood in stool (319318891) Blood in stool (K92.1) Active confirmed Problem Obstructive sleep apnea syndrome (56132265) ENE (obstructive sleep apnea) (G47.33) Active confirmed Problem Body mass index 40+ - morbidly obese (552256342) BMI 40.0-44.9, adult (Z68.41) Active confirmed Problem Use of anticoagulation (471450867) Chronic anticoagulation (Z79.01) Active confirmed Problem Type II diabetes mellitus without complication (110382326) Type 2 diabetes mellitus without complication, without long-term current use of insulin (E11.9) Active confirmed Problem Body mass index 40+ - severely obese (418630331) Body mass index [BMI] 45.0-49.9, adult (Z68.42) Active confirmed Problem Cough (28460535) Cough (R05.9) Active confirmed Problem Amnesia (47281766) Memory change s (R41.3) Active confirmed Problem Lumbosacral radiculopathy (6255763) Sciatic radiculitis (M51.17) Active confirmed Problem Lumbar pain (804288137) Lumbar pain (M54.50) Active confirmed Problem Mood disorder (51986004) Mood disorder (F39) Active confirmed Problem Obstructive sleep apnea syndrome (78153196) ENE on CPAP (G47.33) Active confirmed Problem White blood cell disorder (52535146) Abnormal white blood cell (WBC) (D72.9) Active confirmed Problem Compulsive buying (2755379) Compulsive buying (F42.8) Active confirmed Vital Signs Heart Rate 98 /min 05/11/2025 Temperature 98.5 degrees Fahrenheit 01/13/2025 Oximetry 98 % 05/11/2025 Blood pressure diastolic 72 mm Hg 05/11/2025 Height 69 in 05/11/2025 Blood pressure systolic 124 mm Hg 05/11/2025 Weight 264 lbs 05/11/2025 BMI 38.98 kg/m2 05/11/2025 Encounters Encounter Location Date Provider Diagnosis [facility] [address] [place] [address] 06/16/2024 MARIBELL BROOKS Type 2 diabetes ayaka itus with unspecified complications E11.8 ; Essential (primary) hypertension I10 ; Hyperlipidemia, unspecified hyperlipidemia type E78.5 and Acquired hypothyroidism E03.[address] [address] [place] [address] 07/22/2024 DELMAR ROBLES Blood in stool K92.1 ; Paroxysmal atrial fibrillation I48.0 ; Hyperlipidemia, unspecified E78.5 ; 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, unspecified whether termite treater insulin use E11.8 ; Acquired hypothyroidism E03.9 and Type 2 diabetes mellitus without complication, without long-term current use of insulin E11.9 [facility] [address] [address] 08/19/2024 DELMAR ROBLES Paroxysmal atrial fibrillation I48.0 ; Blood in stool K92.1 ; Hyperlipidemia, unspecified E78.5 ; 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, unspecified whether termite treater insulin use E11.8 ; Acquired hypothyroidism E03.9 ; Type 2 diabetes mellitus without complication, without long-term current use of insulin E11.9 and Prostate cancer C61 [facility] [address] [facility] [address] [place] [address] 09/17/2024 TALAL BROOKS Acute cellulitis L03 .90 ; Hyperlipidemia, unspecified E78.5 ; Paroxysmal atrial fibrillation I48.0 ; Chronic obstructive pulmonary disease, unspecified J44.9 and 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, unspecified whether chcf insulin use E11.8 [facility] [address] [address] 10/01/2024 Caridad Svrcek Acute cellulitis L03 .90 ; Other chronic pain G89.29 ; Low back pain, unspecified M54.50 ; Chronic obstructive pulmonary disease, unspecified J44.9 and 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, unspecified whether termite treater insulin use E11.8 [facility] [address] [address] 11/05/2024 Caridad Svrcek Low back pain, unspecified M54.50 ; Spinal stenosis of lumbar region with neurogenic claudication M48.062 ; Other chronic pain G89.29 ; Acute cellulitis L03.90 ; Paroxysmal atrial fibrillation I48.0 and Chronic anticoagulation Z79.01 [facility] [address] [address] 12/28/2024 Caridad Svrcek Memory changes R41.3 and Compulsive buying F42.8 [facility] [address] [address] 01/12/2025 Caridad Svrcek Memory changes R41.3 ; Compulsive buying F42.8 ; ENE on CPAP G47.33 and Periodic limb movement disorder G47.61 [facility] [address] [place] [address] 01/13/2025 TIERRA MICHELLE Acute URI J06.9 ; Na naye congestion R09.81 and Body aches R52 [facility] [address] 02/16/2025 Caridad Svrcek Memory changes R41.3 ; Acute bilateral thoracic back pain M54.6 ; Compulsive buying F42.8 ; ENE on CPAP G47.33 and Periodic limb movement disorder G47.61 [facility] [address] 03/04/2025 Caridad Svrcek Compression fracture of T8 vertebra, initial encounter S22.060A [facility] [address] 05/11/2025 Caridad Svrcek Memory changes R41.3 ; Compulsive buying F42.8 ; ENE on CPAP G47.33 ; Periodic limb movement disorder G47.61 ; Type 2 diabetes mellitus without complication, without long-term current use of insulin E11.9 ; Hyperlipidemia, unspecified hyperlipidemia type E78.5 ; Paroxysmal atrial fibrillation I48.0 and Encounter for examination of blood pressure without abnormal findings Z01.[address] [facility] [address] [place] [address] 06/17/2024 TALAL BROOKS [facility] [address] [place] [address] 06/24/2024 TALAL BROOKS [facility] [address] [place] [address] 06/30/2024 TALAL BROOKS [facility] [address] 07/22/2024 DELMAR ROBLES [facility] [address] 09/17/2024 TALAL BROOKS [facility] [address] [place] [address] 10/26/2024 TALAL BROOKS [facility] [address] 11/13/2024 TALAL BROOKS [facility] [address] [address] 12/30/2024 Caridad Svrcek Memory changes R41.3 [facility] [address] [facility] [address] [place] [address] 12/30/2024 TALAL BROOKS [facility] [address] [facility] [address] [place] [address] 01/07/2025 Caridad Svrcek Abnormal white blood cell (WBC) D72.9 [facility] [address] [facility] [address] [place] [address] 01/11/2025 Caridad Svrcek [facility] [address] [facility] [address] [place] [address] 01/12/2025 TALAL BROOKS [facility] [address] [facility] [address] [place] [address] 01/12/2025 Caridad Svrcek [facility] [address] [facility] [address] [place] [address] 01/13/2025 Caridad Svrcek [facility] [address] [facility] [address] [place] [address] 01/13/2025 TALAL BROOKS [facility] [address] [place] [address] 01/13/2025 TALAL BROOKS [facility] [address] [facility] [address] [place] [address] 01/15/2025 TALAL BROOKS [facility] [address] [facility] [address] [place] [address] 01/16/2025 DELMAR ROBLES [facility] [address] [facility] [address] [place] [address] 01/20/2025 Caridad Svrcek [facility] [address] [facility] [address] [place] [address] 02/02/2025 Caridad Svrcek [facility] [address] [facility] [address] [place] [address] 02/02/2025 Caridad Svrcek [facility] [address] [facility] [address] [place] [address] 02/16/2025 Caridad Svrcek [facility] [address] [facility] [address] [place] [address] 02/22/2025 Caridad Svrcek [facility] [address] [facility] [address] [place] [address] 03/04/2025 Caridad Svrcek [facility] [address] [facility] [address] [place] [address] 03/29/2025 Caridad Svrcek [facility] [address] [place] [address] 04/05/2025 Caridad Svrcek [facility] [address] [facility] [address] [place] [address] 04/16/2025 TALAL BROOKS [facility] [address] [place] [address] 05/19/2025 Caridad Svrcek [facility] [address] [facility] [address] [place] [address] 07/20/2024 TALAL BROOKS [facility] [address] [facility] [address] [place] [address] 08/18/2024 TALAL BROOKS [facility] [address] [facility] [address] [place] [address] 09/29/2024 CALVIN BOWSERT [facility] [address] [facility] [address] [place] [address] 11/06/2024 Caridad Svrcek [facility] [address] [facility] [address] [place] [address] 12/09/2024 Caridad Svrcek [facility] [address] [facility] [address] [place] [address] 12/14/2024 Caridad Svrcek [facility] [address] [address] [place] [address] 12/21/2024 Caridad Svrcek [facility] [address] [facility] [address] [place] [address] 01/13/2025 TALAL BROOKS [facility] [address] [address] [place] [address] 02/08/2025 Caridad Svrcek [facility] [address] [address] [place] [address] 02/09/2025 Caridad Svrcek [facility] [address] [place] [address] 03/03/2025 Caridad Svrcek [facility] [address] [place] [address] 03/04/2025 Caridad Svrcek Assessments Encounter Date Diagnosis (ICD Code) Assessment Notes Treatment Notes Treatment Clinical Notes [...] of regular follow-up with primary care physician, stud master/mistress and 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 Patient is doing [...] reviewed. Dictation completed with the use of iSTAR voice recognition software, prone to medical misidentifications [...] reviewed. Dictation completed with the use of iSTAR voice recognition software, prone to medical misidentifications [...] well, he is encouraged to follow-up with dielectric press operator, Dr. 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 Reviewed return [...] with [facility], due to see them again 10/21/2024. Currently taking Zytiga with prednisone. Plan to request records from [facility] for continued evaluation. #Hypothyroidism: Clinically the [...] reviewed. Dictation completed with the use of iSTAR voice recognition software, prone to medical misidentifications [...] and follows up with Coumadin clinic at [place].. Possible interaction with Coumadin and Keflex and [...] and follows up with Coumadin clinic at [place].. Possible interaction with Coumadin and Keflex and [...] symptoms. #Chronic low back pain. [facility]. #Chronic low back pain. Followed by [facility] pain clinic and is currently getting epidural injections without significant improvement. He has follow-up with them in 2-1/2 weeks and they may be considering an MRI to further evaluate. Will follow-up with me in 1 month sooner with any concerns. 11/05/2024 Spinal stenosis of lumbar region with [...] Coumadin and managed by Coumadin clinic in [place]. Most recent INR yesterday was 2.1. Currently on Coumadin 5 mg 4 days a week and 2.5 mg 3 days a week. Dose has been stable for several years. Case discussed with collaborating physician Moustapha Brooks who reviewed the assessment and plan. Chart, medications, labs, vital signs reviewed. Dictation was accomplished with the use of iSTAR voice recognition software, prone to medical misidentifications [...] lab workup. He is interested in seeing [facility] and is requesting a referral today. Will also refer to [facility] neurology and send for brain MRI. Follow-up pending results. #Compulsive buying. He has had an issue with compulsive spending for many years resulting in significant financial issues. He is currently on Celexa and would like to pursue further help with psychiatry and therapy. Requesting referral to [facility]. His family is very involved and supportive. As above we will do further workup with labs imaging and referral. Case discussed with collaborating physician Moustapha Brooks who reviewed the assessment and plan. Chart, medications, labs, vital signs reviewed. Dictation was accomplished with the use of iSTAR voice recognition software, prone to medical misidentifications [...] lab workup. He is interested in seeing [facility] and is requesting a referral today. Will also refer to [facility] neurology and send for brain MRI. Follow-up pending results. #Compulsive buying. He has had an issue with compulsive spending for many years resulting in significant financial issues. He is currently on Celexa and would like to pursue further help with psychiatry and therapy. Requesting referral to [facility] behavioral [facility]. His family is very involved and supportive. As above we will do further workup with labs imaging and referral. Case discussed with collaborating physician Moustapha Brooks who reviewed the assessment and plan. Chart, medications, labs, vital signs reviewed. Dictation was accomplished with the use of iSTAR voice recognition software, prone to medical misidentifications and grammatical errors. This is unintentional and the practitioner does try to identify and correct these, but some could still be present. Please do not hesitate to contact practitioner for clarification. All questions answered to patients satisfaction. Patient verbalized understanding of diagnosis and treatments explained. To call sooner prior to next visit it any questions/concerns arise. 01/07/2025 Abnormal white blood cell (WBC) (ICD-10 - D72.9) 11/05/2024 Low back pain, unspecified (ICD-10 - [...] Coumadin and managed by Coumadin clinic in [place]. Most recent INR yesterday was 2.1. Currently on Coumadin 5 mg 4 days a week and 2.5 mg 3 days a week. Dose has been stable for several years. Case discussed with collaborating physician Moustapha Brooks who reviewed the assessment and plan. Chart, medications, labs, vital signs reviewed. Dictation was accomplished with the use of iSTAR voice recognition software, prone to medical misidentifications [...] next visit it any questions/concerns arise. 01/12/2025 Memory changes (ICD-10 - R41.3) #Memory [...] Followed by pulmonology. #Periodic limb movement disorder. [employer] Specialist wanted to start him on ropinirole for restless legs. He has declined to do so. We did discuss effect of poor sleep on memory and mood. Will request copy of sleep study to review. Case discussed with collaborating physician Moustapha Brooks who reviewed the assessment and plan. Chart, medications, labs, vital signs reviewed. Dictation was accomplished with the use of iSTAR voice recognition software, prone to medical misidentifications [...] for now. Would like to persue neuropsych evelaine as well. #Compulsive buying. He has had an issue with compulsive spending for many years resulting in significant financial issues. He is currently on Celexa and would like to pursue further help with psychiatry and therapy. Referred. Has good family support. #ENE. On CPAP/BiPAP. Followed by pulmonology. #Periodic limb movement disorder. [employer] Specialist wanted to start him on ropinirole for restless legs. He has declined to do so. We did discuss effect of poor sleep on memory and mood. Will request copy of sleep study to review. Case discussed with collaborating physician Moustapha Brooks who reviewed the assessment and plan. Chart, medications, labs, vital signs reviewed. Dictation was accomplished with the use of iSTAR voice recognition software, prone to medical misidentifications [...] Dictation was accomplished with the use of iSTAR voice recognition software, prone to medical misidentifications [...] Dictation was accomplished with the use of iSTAR voice recognition software, prone to medical misidentifications and grammatical errors. This is unintentional and the practitioner does try to identify and correct these, but some could still be present. Please do not hesitate to contact the practitioner for clarification. 03/04/2025 Compression fracture of T8 vertebra, initial encounter (ICD-10 - S22.060A) #Compression fracture. T8. CT ordered by specialist in [place] reviewd. Planning for Kyphoplasty in [place]- awaiting appt. Will discuss with his specialist this afternoon. Tramadol ineffective for pain control. Unfortunately, he is traveling to [place] Saturday with his grandchildren to go to [place]. Discussed No rides, lifting etc. He will be using a scooter while there. WIll trial Journavx for pain control. Discussed signs/symptoms to monitor for. He will let me know once he has kyphoplasty appt. Case discussed with collaborating physician Moustapha Brooks who reviewed the assessment and plan. Chart, medications, labs, vital signs reviewed. Dictation was accomplished with the use of iSTAR voice recognition software, prone to medical misidentifications [...] Dictation was accomplished with the use of iSTAR voice recognition software, prone to medical misidentifications [...] Dictation was accomplished with the use of iSTAR voice recognition software, prone to medical misidentifications and grammatical errors. This is unintentional and the practitioner does try to identify and correct these, but some could still be present. Please do not hesitate to contact practitioner for clarification. All questions answered to patients satisfaction. Patient verbalized understanding of diagnosis and treatments explained. To call sooner prior to next visit it any questions/concerns arise. 05/11/2025 Memory changes (ICD-10 - R41.3) #Memory changes. Mood and memory has been stable. scheduled in July with memory clinic #Compulsive buying. He has had an issue with compulsive spending for many years resulting in significant financial issues. He is currently on Celexa. Awaiting appt with psychiatry. Will be seeeing memory clinic. Mood and memory have been stable. Denies any #ENE. On CPAP/BiPAP. Followed by pulmonology. Recently got an updated machine. . #Periodic limb movement disorder. Did not tolerate ropinerol prescribed by Dr. Patterson. #Type 2 DM. Will get updated comprehensive labs. He is working on lifestyle modiications, healthier diet and has lost 15 pounds in the past 4 months. #PAF. SR on exam. Anticoagulated on Warfarin. On diltiazem. Case discussed with collaborating physician Moustapha Brooks who reviewed the assessment and plan. Chart, medications, labs, vital signs reviewed. Dictation was accomplished with the use of iSTAR voice recognition software, prone to medical misidentifications and grammatical errors. This is unintentional and the practitioner does try to identify and correct these, but some could still be present. Please do not hesitate to contact practitioner for clarification. All questions answered to patients satisfaction. Patient verbalized understanding of diagnosis and treatments explained. To call sooner prior to next visit it any questions/concerns arise. 05/11/2025 Compulsive buying (ICD-10 - F42.8) #Memory changes. Mood and memory has been stable. scheduled in July with memory clinic #Compulsive buying. He has had an issue with compulsive spending for many years resulting in significant financial issues. He is currently on Celexa. Awaiting appt with psychiatry. Will be seeeing memory clinic. Mood and memory have been stable. Denies any #ENE. On CPAP/BiPAP. Followed by pulmonology. Recently got an updated machine. . #Periodic limb movement disorder. Did not tolerate ropinerol prescribed by Dr. Patterson. #Type 2 DM. Will get updated comprehensive labs. He is working on lifestyle modiications, healthier diet and has lost 15 pounds in the past 4 months. #PAF. SR on exam. Anticoagulated on Warfarin. On diltiazem. Case discussed with collaborating physician Moustapha Brooks who reviewed the assessment and plan. Chart, medications, labs, vital signs reviewed. Dictation was accomplished with the use of iSTAR voice recognition software, prone to medical misidentifications [...] arise. 12/30/2024 Memory changes (ICD-10 - R41.3) 05/11/2025 ENE on CPAP (ICD-10 - G47.33) #Memory changes. Mood and memory has been stable. scheduled in July with memory clinic #Compulsive buying. He has had an issue with compulsive spending for many years resulting in significant financial issues. He is currently on Celexa. Awaiting appt with psychiatry. Will be seeeing memory clinic. Mood and memory have been stable. Denies any #ENE. On CPAP/BiPAP. Followed by pulmonology. Recently got an updated machine. . #Periodic limb movement disorder. Did not tolerate ropinerol prescribed by Dr. Patterosn. #Type 2 DM. Will get updated comprehensive labs. He is working on lifestyle modiications, healthier diet and has lost 15 pounds in the past 4 months. #PAF. SR on exam. Anticoagulated on Warfarin. On diltiazem. Case discussed with collaborating physician Moustapha Brooks who reviewed the assessment and plan. Chart, medications, labs, vital signs reviewed. Dictation was accomplished with the use of iSTAR voice recognition software, prone to medical misidentifications [...] Dictation was accomplished with the use of iSTAR voice recognition software, prone to medical misidentifications [...] Dictation was accomplished with the use of iSTAR voice recognition software, prone to medical misidentifications [...] Followed by pulmonology. #Periodic limb movement disorder. [employer] Specialist wanted to start him on ropinirole for restless legs. He has declined to do so. We did discuss effect of poor sleep on memory and mood. Will request copy of sleep study to review. Case discussed with collaborating physician Moustapha Brooks who reviewed the assessment and plan. Chart, medications, labs, vital signs reviewed. Dictation was accomplished with the use of iSTAR voice recognition software, prone to medical misidentifications [...] Coumadin and managed by Coumadin clinic in [place]. Most recent INR yesterday was 2.1. Currently on Coumadin 5 mg 4 days a week and 2.5 mg 3 days a week. Dose has been stable for several years. Case discussed with collaborating physician Moustapha Brooks who reviewed the assessment and plan. Chart, medications, labs, vital signs reviewed. Dictation was accomplished with the use of iSTAR voice recognition software, prone to medical misidentifications [...] well, he is encouraged to follow-up with dielectric press operator, Dr. 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 Reviewed return [...] with [facility] [place], due to see them again 10/21/2024. Currently taking Zytiga with prednisone. Plan to request records from [facility] for continued evaluation. #Hypothyroidism: Clinically the [...] reviewed. Dictation completed with the use of iSTAR voice recognition software, prone to medical misidentifications [...] well, he is encouraged to follow-up with dielectric press operator, Dr. 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 Reviewed return [...] with [facility], due to see them again 10/21/2024. Currently taking Zytiga with prednisone. Plan to request records from [facility] for continued evaluation. #Hypothyroidism: Clinically the [...] reviewed. Dictation completed with the use of iSTAR voice recognition software, prone to medical misidentifications and grammatical errors. All errors are unintentional. Although the practitioner does try to identify and correct errors, some may be present. Please do not hesitate to contact the practitioner for clarification. 10/01/2024 Low back pain, unspecified (ICD-10 - M54.50) #Cellulitis. Left lower extremity anterior ul. Healing well. He has completed oral Keflex. Still has open area of granulation tissue to the center but is decreasing in size. No drainage tenderness or warmth. Will continue wound care at home and discussed signs and symptoms to monitor for. Will follow-up again in 4 weeks for recheck sooner with any new or worsening symptoms. #Chronic low back pain. Followed by [facility] pain clinic and is currently getting epidural injections without significant improvement. He has follow-up with them in 2-1/2 weeks and they may be considering an MRI to further evaluate. Will follow-up with me in 1 month sooner with any concerns. 09/17/2024 Paroxysmal atrial fibrillation (ICD-10 - I48.0) Patient treated for acute cellulitis to complete K-Flex and wound care done. Hyperlipidemia and back pain stable and patient will continue with current medications for COPD patient is on inhalers.. He has lost 30 pounds with diet and exercise he also is on Coumadin and follows up with Coumadin clinic at [place].. Possible interaction with Coumadin and Keflex and [...] reviewed. Dictation completed with the use of iSTAR voice recognition software, prone to medical misidentifications [...] of regular follow-up with primary care physician, stud master/mistress and 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 Patient is doing [...] of regular follow-up with primary care physician, stud master/mistress and 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 Patient is doing well hemoglobin A1c 6.1 taking medications as prescribed. Continue medical weight loss continue to hold Coumadin for injection in the spine tomorrow and then follow-up in 3 months 09/17/2024 Chronic obstructive pulmonary disease, unspecified (ICD-10 - J44.9) Patient treated for acute cellulitis to complete K-Flex and wound care done. Hyperlipidemia and back pain stable and patient will continue with current medications for COPD patient is on inhalers.. He has lost 30 pounds with diet and exercise he also is on Coumadin and follows up with Coumadin clinic at [place].. Possible interaction with Coumadin and Keflex and [...] symptoms. #Chronic low back pain. Followed by [facility] pain clinic and is currently getting epidural injections without significant improvement. He has follow-up with them in 2-1/2 weeks and they may be considering an MRI to further evaluate. Will follow-up with me in 1 month sooner with any concerns. 08/19/2024 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, unspecified whether termite treater insulin use (ICD-10 - E11.8) Jose Manuel [...] well, he is encouraged to follow-up with dielectric press operator, Dr. 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 Reviewed return [...] with [facility], due to see them again 10/21/2024. Currently taking Zytiga with prednisone. Plan to request records from [facility] for continued evaluation. #Hypothyroidism: Clinically the [...] reviewed. Dictation completed with the use of iSTAR voice recognition software, prone to medical misidentifications and grammatical errors. All errors are unintentional. Although the practitioner does try to identify and correct errors, some may be present. Please do not hesitate to contact the practitioner for clarification. 07/22/2024 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, unspecified whether chcf insulin use (ICD-10 - E11.8) Jose Manuel [...] reviewed. Dictation completed with the use of iSTAR voice recognition software, prone to medical misidentifications and grammatical errors. All errors are unintentional. Although the practitioner does try to identify and correct errors, some may be present. Please do not hesitate to contact the practitioner for clarification. 11/05/2024 Acute cellulitis (ICD-10 - L03.90) #Spinal [...] Coumadin and managed by Coumadin clinic in [place]. Most recent INR yesterday was 2.1. Currently on Coumadin 5 mg 4 days a week and 2.5 mg 3 days a week. Dose has been stable for several years. Case discussed with collaborating physician Moustapha Brooks who reviewed the assessment and plan. Chart, medications, labs, vital signs reviewed. Dictation was accomplished with the use of iSTAR voice recognition software, prone to medical misidentifications [...] Followed by pulmonology. #Periodic limb movement disorder. [employer] Specialist wanted to start him on ropinirole for restless legs. He has declined to do so. We did discuss effect of poor sleep on memory and mood. Will request copy of sleep study to review. Case discussed with collaborating physician Moustapha Brooks who reviewed the assessment and plan. Chart, medications, labs, vital signs reviewed. Dictation was accomplished with the use of iSTAR voice recognition software, prone to medical misidentifications and grammatical errors. This is unintentional and the practitioner does try to identify and correct these, but some could still be present. Please do not hesitate to contact practitioner for clarification. All questions answered to patients satisfaction. Patient verbalized understanding of diagnosis and treatments explained. To call sooner prior to next visit it any questions/concerns arise. 05/11/2025 Periodic limb movement disorder (ICD-10 - G47.61) #Memory changes. Mood and memory has been stable. scheduled in July with memory clinic #Compulsive buying. He has had an issue with compulsive spending for many years resulting in significant financial issues. He is currently on Celexa. Awaiting appt with psychiatry. Will be seeeing memory clinic. Mood and memory have been stable. Denies any #ENE. On CPAP/BiPAP. Followed by pulmonology. Recently got an updated machine. . #Periodic limb movement disorder. Did not tolerate ropinerol prescribed by Dr. Patterson. #Type 2 DM. Will get updated comprehensive labs. He is working on lifestyle modiications, healthier diet and has lost 15 pounds in the past 4 months. #PAF. SR on exam. Anticoagulated on Warfarin. On diltiazem. Case discussed with collaborating physician Moustapha Brooks who reviewed the assessment and plan. Chart, medications, labs, vital signs reviewed. Dictation was accomplished with the use of iSTAR voice recognition software, prone to medical misidentifications [...] has since discontinued. Will follow-up with Dr. Pattersno next week. Case discussed with collaborating physician Moustapha Brooks who reviewed the assessment and plan. Chart, medications, labs, vital signs reviewed. Dictation was accomplished with the use of iSTAR voice recognition software, prone to medical misidentifications and grammatical errors. This is unintentional and the practitioner does try to identify and correct these, but some could still be present. Please do not hesitate to contact practitioner for clarification. All questions answered to patients satisfaction. Patient verbalized understanding of diagnosis and treatments explained. To call sooner prior to next visit it any questions/concerns arise. 05/11/2025 Type 2 diabetes mellitus without complication, without long-term current use of insulin (ICD-10 - E11.9) #Memory changes. Mood and memory has been stable. scheduled in July with memory clinic #Compulsive buying. He has had an issue with compulsive spending for many years resulting in significant financial issues. He is currently on Celexa. Awaiting appt with psychiatry. Will be seeeing memory clinic. Mood and memory have been stable. Denies any #ENE. On CPAP/BiPAP. Followed by pulmonology. Recently got an updated machine. . #Periodic limb movement disorder. Did not tolerate ropinerol prescribed by Dr. Patterson. #Type 2 DM. Will get updated comprehensive labs. He is working on lifestyle modiications, healthier diet and has lost 15 pounds in the past 4 months. #PAF. SR on exam. Anticoagulated on Warfarin. On diltiazem. Case discussed with collaborating physician Moustapha Brooks who reviewed the assessment and plan. Chart, medications, labs, vital signs reviewed. Dictation was accomplished with the use of iSTAR voice recognition software, prone to medical misidentifications [...] Dictation was accomplished with the use of iSTAR voice recognition software, prone to medical misidentifications [...] Coumadin and managed by Coumadin clinic in [place]. Most recent INR yesterday was 2.1. Currently on Coumadin 5 mg 4 days a week and 2.5 mg 3 days a week. Dose has been stable for several years. Case discussed with collaborating physician Moustapha Brooks who reviewed the assessment and plan. Chart, medications, labs, vital signs reviewed. Dictation was accomplished with the use of iSTAR voice recognition software, prone to medical misidentifications and grammatical errors. This is unintentional and the practitioner does try to identify and correct these, but some could still be present. Please do not hesitate to contact practitioner for clarification. All questions answered to patients satisfaction. Patient verbalized understanding of diagnosis and treatments explained. To call sooner prior to next visit it any questions/concerns arise. 07/22/2024 Acquired hypothyroidism (ICD-10 - E03.9) Jose [...] reviewed. Dictation completed with the use of iSTAR voice recognition software, prone to medical misidentifications and grammatical errors. All errors are unintentional. Although the practitioner does try to identify and correct errors, some may be present. Please do not hesitate to contact the practitioner for clarification. 08/19/2024 Acquired hypothyroidism (ICD-10 - E03.9) Jose [...] well, he is encouraged to follow-up with dielectric press operator, Dr. 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 Reviewed return [...] with [facility], due to see them again 10/21/2024. Currently taking Zytiga with prednisone. Plan to request records from [facility] for continued evaluation. #Hypothyroidism: Clinically the [...] reviewed. Dictation completed with the use of iSTAR voice recognition software, prone to medical misidentifications and grammatical errors. All errors are unintentional. Although the practitioner does try to identify and correct errors, some may be present. Please do not hesitate to contact the practitioner for clarification. 10/01/2024 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, unspecified whether chcf insulin use (ICD-10 - E11.8) #Cellulitis. Left [...] symptoms. #Chronic low back pain. Followed by [facility] pain clinic and is currently getting epidural injections without significant improvement. He has follow-up with them in 2-1/2 weeks and they may be considering an MRI to further evaluate. Will follow-up with me in 1 month sooner with any concerns. 09/17/2024 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, unspecified whether termite treater insulin use (ICD-10 - E11.8) Patient treated for acute cellulitis to complete K-Flex and wound care done. Hyperlipidemia and back pain stable and patient will continue with current medications for COPD patient is on inhalers.. He has lost 30 pounds with diet and exercise he also is on Coumadin and follows up with Coumadin clinic at [place].. Possible interaction with Coumadin and Keflex and patient has been educated and last INR was 1.8 and has follow-up with Coumadin clinic. Patient will see Caridad in 2 weeks for wound check 06/16/2024 Acquired hypothyroidism (ICD-10 - E03.9) Patient [...] of regular follow-up with primary care physician, stud master/mistress and 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 Patient is doing [...] reviewed. Dictation completed with the use of iSTAR voice recognition software, prone to medical misidentifications [...] Coumadin and managed by Coumadin clinic in [place]. Most recent INR yesterday was 2.1. Currently on Coumadin 5 mg 4 days a week and 2.5 mg 3 days a week. Dose has been stable for several years. Case discussed with collaborating physician Moustapha Brooks who reviewed the assessment and plan. Chart, medications, labs, vital signs reviewed. Dictation was accomplished with the use of iSTAR voice recognition software, prone to medical misidentifications [...] well, he is encouraged to follow-up with dielectric press operator, Dr. 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 Reviewed return [...] with [facility], due to see them again 10/21/2024. Currently taking Zytiga with prednisone. Plan to request records from [facility] for continued evaluation. #Hypothyroidism: Clinically the [...] reviewed. Dictation completed with the use of iSTAR voice recognition software, prone to medical misidentifications and grammatical errors. All errors are unintentional. Although the practitioner does try to identify and correct errors, some may be present. Please do not hesitate to contact the practitioner for clarification. 05/11/2025 Hyperlipidemia, unspecified hyperlipidemia type (ICD-10 - E78.5) #Memory changes. Mood and memory has been stable. scheduled in July with memory clinic #Compulsive buying. He has had an issue with compulsive spending for many years resulting in significant financial issues. He is currently on Celexa. Awaiting appt with psychiatry. Will be seeeing memory clinic. Mood and memory have been stable. Denies any #ENE. On CPAP/BiPAP. Followed by pulmonology. Recently got an updated machine. . #Periodic limb movement disorder. Did not tolerate ropinerol prescribed by Dr. Patterson. #Type 2 DM. Will get updated comprehensive labs. He is working on lifestyle modiications, healthier diet and has lost 15 pounds in the past 4 months. #PAF. SR on exam. Anticoagulated on Warfarin. On diltiazem. Case discussed with collaborating physician Moustapha Brooks who reviewed the assessment and plan. Chart, medications, labs, vital signs reviewed. Dictation was accomplished with the use of iSTAR voice recognition software, prone to medical misidentifications and grammatical errors. This is unintentional and the practitioner does try to identify and correct these, but some could still be present. Please do not hesitate to contact practitioner for clarification. All questions answered to patients satisfaction. Patient verbalized understanding of diagnosis and treatments explained. To call sooner prior to next visit it any questions/concerns arise. 05/11/2025 Paroxysmal atrial fibrillation (ICD-10 - I48.0) #Memory changes. Mood and memory has been stable. scheduled in July with memory clinic #Compulsive buying. He has had an issue with compulsive spending for many years resulting in significant financial issues. He is currently on Celexa. Awaiting appt with psychiatry. Will be seeeing memory clinic. Mood and memory have been stable. Denies any #ENE. On CPAP/BiPAP. Followed by pulmonology. Recently got an updated machine. . #Periodic limb movement disorder. Did not tolerate ropinerol prescribed by Dr. Patterson. #Type 2 DM. Will get updated comprehensive labs. He is working on lifestyle modiications, healthier diet and has lost 15 pounds in the past 4 months. #PAF. SR on exam. Anticoagulated on Warfarin. On diltiazem. Case discussed with collaborating physician Moustapha Brooks who reviewed the assessment and plan. Chart, medications, labs, vital signs reviewed. Dictation was accomplished with the use of iSTAR voice recognition software, prone to medical misidentifications [...] next visit it any questions/concerns arise. 08/19/2024 Prostate cancer (ICD-10 - C61) Jose [...] well, he is encouraged to follow-up with dielectric press operator, Dr. 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 Reviewed return [...] with [facility] [place], due to see them again 10/21/2024. Currently taking Zytiga with prednisone. Plan to request records from [facility] for continued evaluation. #Hypothyroidism: Clinically the [...] reviewed. Dictation completed with the use of iSTAR voice recognition software, prone to medical misidentifications and grammatical errors. All errors are unintentional. Although the practitioner does try to identify and correct errors, some may be present. Please do not hesitate to contact the practitioner for clarification. 05/11/2025 Encounter for examination of blood pressure without abnormal findings (ICD-10 - Z01.30) #Memory changes. Mood and memory has been stable. scheduled in July with memory clinic #Compulsive buying. He has had an issue with compulsive spending for many years resulting in significant financial issues. He is currently on Celexa. Awaiting appt with psychiatry. Will be seeeing memory clinic. Mood and memory have been stable. Denies any #NEE. On CPAP/BiPAP. Followed by pulmonology. Recently got an updated machine. . #Periodic limb movement disorder. Did not tolerate ropinerol prescribed by Dr. Patterson. #Type 2 DM. Will get updated comprehensive labs. He is working on lifestyle modiications, healthier diet and has lost 15 pounds in the past 4 months. #PAF. SR on exam. Anticoagulated on Warfarin. On diltiazem. Case discussed with collaborating physician Moustapha Brooks who reviewed the assessment and plan. Chart, medications, labs, vital signs reviewed. Dictation was accomplished with the use of iSTAR voice recognition software, prone to medical misidentifications and grammatical errors. This is unintentional and the practitioner does try to identify and correct these, but some could still be present. Please do not hesitate to contact practitioner for clarification. All questions answered to patients satisfaction. Patient verbalized understanding of diagnosis and treatments explained. To call sooner prior to next visit it any questions/concerns arise. Plan Of Treatment Pending Test Test Name Order Date MRI : Lumbosacral Spines 01/22/2019 MRI : Brain 12/30/2024 Chest X-ray PA and lateral 03/25/2018 MRI : Lumbar without contrast 12/26/2021 1,25OH VITAMIN D 12/28/2024 CBC (COMPLETE BLOOD COUNT) 05/11/2025 CBC (COMPLETE BLOOD COUNT) 10/20/2018 CBC (COMPLETE BLOOD COUNT) 12/27/2020 CBC (COMPLETE BLOOD COUNT) 06/16/2020 CBC (COMPLETE BLOOD COUNT) 09/21/2020 CBC (COMPLETE BLOOD COUNT) 06/16/2018 COMPREHENSIVE METABOLIC PANEL 06/16/2018 COMPREHENSIVE METABOLIC PANEL 09/21/2020 COMPREHENSIVE METABOLIC PANEL 06/16/2020 COMPREHENSIVE METABOLIC PANEL 12/27/2020 COMPREHENSIVE METABOLIC PANEL 10/20/2018 COMPREHENSIVE METABOLIC PANEL 05/11/2025 HEMOGLOBIN A1C 05/11/2025 HEMOGLOBIN A1C 10/20/2018 HEMOGLOBIN A1C 09/21/2020 HEMOGLOBIN A1C 12/27/2020 HEMOGLOBIN A1C 06/16/2018 LIPID PANEL 06/16/2018 LIPID PANEL 06/16/2020 LIPID PANEL 09/21/2020 LIPID PANEL 12/27/2020 LIPID PANEL 10/20/2018 LIPID PANEL 05/11/2025 OCCULT BLOOD SCREEN X 3 07/22/2024 PSA, SCREEN 06/16/2018 TSH 09/21/2020 TSH WITH REFLEX TO FT4 06/16/2018 URIC ACID 06/16/2018 URINALYSIS W/REFLEX CULTURE 05/11/2025 URINALYSIS, COMPLETE 06/16/2018 URINALYSIS, COMPLETE 06/16/2020 URINALYSIS, COMPLETE 12/27/2020 CBC 12/28/2024 Comprehensive Metabolic Panel 12/28/2024 CBC with Differential 01/07/2025 XR Ankle 3+ Views LT 11/10/2018 XR Chest 2 Views 10/09/2021 XR Hip 2+ Views bilat 10/09/2021 XR L-Spine 4+ Views 10/09/2021 XR Thoracic/L-Spine 2 Views 02/16/2025 MICROALB/CREAT RATIO, RANDOM 05/11/2025 VITAMIN B12 12/28/2024 PT/INR 07/22/2024 TSH 12/28/2024 LIPID PANEL, STANDARD 06/16/2024 LIPID PANEL, STANDARD 11/13/2022 LIPID PANEL, STANDARD 06/11/2022 COMPREHENSIVE METABOLIC PANEL 06/11/2022 COMPREHENSIVE METABOLIC PANEL 06/16/2024 COMPREHENSIVE METABOLIC PANEL 11/13/2022 CBC (INCLUDES DIFF/PLT) 11/13/2022 CBC (INCLUDES DIFF/PLT) 06/16/2024 CBC (INCLUDES DIFF/PLT) 07/22/2024 CBC (INCLUDES DIFF/PLT) 06/11/2022 URINALYSIS, COMPLETE 11/13/2022 URINALYSIS, COMPLETE 06/11/2022 HEMOGLOBIN A1c 06/11/2022 TSH 06/16/2024 Next Appt Details Provider Name:Caridad Conn, 0 08/10/2025 10:00:00 AM, [address] [facility] [address], [place], [address], Insurance Providers Payer Name Payer Address Payer Phone Subscriber Number Group Number Insured Name Patient Relationship to Insured Coverage Start Date Coverage End Date Medicare Part B J14 [address] [place], [place] [id number] LEPJOSE MANUEL CHAN Self - patient is the insured 3 [employer] [address] [place] [address] [phone] [id number] JOSE MANUEL KAM Self - patient is the insured Medications Administered Medication Instructions Date of Administration Dosage Notes [facility] B12 INJECTION 06/11/2022 [id number] Medical (General) History Medical History History ICD Code Essential (primary) [...]
== END 2025-06-01 13:59 | disposition home or self-care (01) ==
LOC: HO.ACS 13:44
PROVIDERS: PCP Internal Medicine; Visit Provider Internal Medicine Medical Oncology
DX: Z79.01 Long term (current) use of anticoagulants (principal)

== ENCOUNTER → 2025-06-01 13:44 | Outpatient (BNVA) | payer MEDICARE, SELFPAY | PROVIDERS: PCP Internal Medicine; Visit Provider Internal Medicine Medical Oncology | DX: Z51.81 Encounter for therapeutic drug level monitoring (principal); Z79.01 Long term (current) use of anticoagulants | CPT/HCPCS: 85610; 99211 ==

== ENCOUNTER 2025-07-06 13:33 | Outpatient (AMB) | payer MEDICARE, SELFPAY ==
[2025-07-06 13:40] LABS: Prothrombin Time Whole Bld POC 34.1 sec (11.1-13.5); ~PT, ~INR - Anti Coag Clinic 2.8 (0.9-1.1)
--- NOTE | 2025-07-06 13:40 | MHC.OFFVISCO ---
Intake Intake Visit Reasons: Anticoagulation Allergies No Known Allergies Allergy (Verified 07/06/25 13:34) Medication List - Last Reconciled 07/06/25 by Donna Archer RN [CALCIUM PO] cholecalciferol (vitamin D3) (Vitamin D3) PO citalopram 20 mg PO DAILY diltiazem HCl CD 300 mg PO DAILY furosemide 40 mg PO DAILY levothyroxine 100 mcg PO DAILY losartan 100 mg PO DAILY metformin mg PO nitroglycerin 0.4 mg sublingual oxycodone mg PO pantoprazole 40 mg PO DAILY pravastatin mg PO prednisone 5 mg PO DAILY tizanidine 2 mg PO BEDTIME tramadol 50 mg PO BID PRN warfarin (Jantoven) 5 mg See Protocol PO DAILY Nursing Note INR: 2.8 in therapeutic range of 2-3 Medications and supplements reviewed No changes in health, diet, medications, or supplements, Denies any signs and symptoms of bleeding or bruising or clotting. Bleeding, bruising, clotting discussed Nutritional guidance given Dose: 5mg X 4 days and 2.5mg X 3 days (M/W/F) F/U INR: 4 weeks Patient verbalizes understanding of instructions given Coding Level of Care Code Est Patient Level 1 Diagnoses Current use of anticoagulant therapy Z79.01 Assessment & Plan Assessment & Plan (1) Current use of anticoagulant therapy: Code(s): Z79.01 - senior care (current) use of anticoagulants Category: Medical
--- OUTSIDE RECORDS SUMMARY | 2025-07-06 14:13 | XMS_ITS | Clinical Summary ---
Author Organization Formerly [facility] Address [address] [facility] [address] [place] [address] Phone Care Team Providers Care Lockstitch Binder Name Role Phone Kirstin Brooks MD Primary Care Provider [phone] Krystyna Bowles MD, PhD Unavailable [phone] Kota Self MD Unavailable Audrey Bush MD, MPH Unavailable Renee Hood RN Unavailable [email or web address] Shreya Foster RN Unavailable [email or web address] Francheska Scott RN Unavailable [email or web address] Prema Lee RN Unavailable Efe [email or web address] Shivam De Jesus MD, MINDI Unavailable [phone] Allergies Active Allergy Reactions Criticality Noted Date Comments Animal Dander 01/05/2016 Other reaction(s): NASAL CONGESTION/SNEEZING Medications pravastatin (PRAVACHOL) 40 MG tablet Take 40 mg by mouth daily. 03/30/2022 Active pantoprazole (PROTONIX) 40 MG tablet Take 40 mg by mouth daily. Active metFORMIN (GLUCOPHAGE) 500 MG tablet Take 500 mg by mouth daily. 02/11/2022 Active losartan (COZAAR) 100 MG tablet Take 100 mg by mouth daily. 02/11/2022 Active levothyroxine (SYNTHROID, LEVOTHROID) 100 MCG tablet Take 100 mcg by mouth daily. 02/11/2022 Active furosemide (LASIX) 40 MG tablet Take 40 mg by mouth daily. 04/14/2022 Active dilTIAZem (CARDIZEM CD) 300 MG 24 hr capsule Take 300 mg by mouth daily. 03/30/2022 Active citalopram (CELEXA) 20 MG tablet Take 20 mg by mouth daily. 03/30/2022 Active acetaminophen (TYLENOL EX STR ARTHRITIS PAIN ORAL) Take 600 mg by mouth daily. Active Ca cit-D3-mag#11-zi nj-cacd-vvv-bor (CALTRATE 600+D) 600 mg calcium- 800 unit-50 mg Tab Take 1 tablet by mouth daily. Active warfarin (COUMADIN) 5 MG tablet as directed. 12/25/2024 Active traMADoL (ULTRAM) 50 mg tablet take 1 tablet by mouth twice a day as needed for 30 days. Active tiZANidine (ZANAFLEX) 2 MG tablet as needed. Active nitroglycerin (NITROSTAT) 0.[address] 0.4 mg under the tongue. 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 Secondary diabetes mellitus 05/09/202307/2023 Gastroesophageal reflux disease 05/09/2023 05/09/2023 Spinal stenosis, site unspecified 05/09/2023 05/09/2023 Prostate cancer 05/09/2023 Hypothyroid 05/09/2023 05/09/2023 Essential (primary) hypertension 04/23/2022 Osteoarthritis (arthritis due to wear and tear o f joints) 01/26/2016 05/09/2023 HLD (hyperlipidemia) 01/26/2016 05/09/2023 ENE on CPAP 01/26/2016 05/09/2023 COPD (chronic obstructive pulmonary disease) 05/09/2023 Atrial fibrillation, controlled 04/25/2006 05/09/2023 Encounters Date Type Department Care Team Description 05/18/2025 9:00 AM EDT Office Visit [facility], [facility] [place] [address] Tiffanie Kauffman PA-C Prostate cancer (Primary Dx); Osteoporosis, unspecified osteoporosis type, unspecified pathological fracture presence from Last 3 Months Immunizations Immunization Administration Dates Next Due COVID-19 (Pre-09/23) Pfizer Vaccine, mRNA, PF ,12/22/2020 Influenza Quadrivalent MDCK Preservative Free IM 08/28/2019 Influenza Quadrivalent Preservative Free IM 12/2019,09/01/2018 Family History Medical History Relation Comments Dementia Father Pneumonia Father Schizoaffective disorder Half-Brother 1 Lung cancer Half-Brother 2 No Known Problems Maternal Grandfather No Known Problems Maternal Grandmother Atrial fibrillation Mother Stroke Mother Thyroid disease Mother Coronary Artery Disease (male before age 55) Pat ernal Grandfather Coronary artery disease Paternal Grandfather No Known Problems Paternal Grandmother No Known Problems Son 1 No Known Problems Son 2 Relation Status Comments Father Half-Brother 1 Half-Brother 2 Alive Maternal Grandfather Maternal Grandmother Mother Paternal Grandfather Paternal Grandmother Son 1 Alive Son 2 Alive Social History Tobacco Use Types Packs/Day Years Used Date Smoking Tobacco: Former Cigarettes 1 36 1 970 - 2006 Smokeless Tobacco: Never Tobacco Cessation:Counseling Given: Not Answered Alcohol Use Standard Drinks/Week Comments Yes 4 (1 standard drink = 0.6 oz pur e alcohol) occasional Child or Family Care Answer Date Record ed Do you have problems with on e of the following making it difficult for you to work, study, or receive health care? No 01/14/2025 Education Answer Date Recorded Are you interested in more education? Not on eve e 03/29/2023 Are you concerned about learning? Not on file 03/29/2023 No 03/29/2023 No 03/29/2023 Food Answer Date Recorded Within the past 6 months we worried whether our food would run out before we got money to buy more. Never True 01/14/2025 Within the past 6 months the food we bought just didn't last and we didn't have enough money to get more. Never True Residential Stability Answer Date Recor ded What is your housing situation today? I have olvin grey 01/14/2025 How many times have you move d in the past 12 months? Zero (I did not move) 01/14/2025 Paying for Meds Answer Date Recorded Do you have trouble paying for medicines? No 01/14/2025 Paying Utility Bills Answer Date Record ed Do you have trouble paying your heating or elect ricity bill? No 01/14/2025 Transportation Answer Date Recorded Has the lack of transportati on kept you from medical appointments or from getting medications? No 01/14/2025 Digital Access Answer Date Recorded No 01/14/2025 Yes 01/14/2025 Do you have reliable internet access at home? Ye s 01/14/2025 Do you have a device (e.g., phone, tablet, computer) with a working camera? Yes 01/14/2025 Sex and Gender Information Value Date Recorded Sex Assigned at Male 01/03/2022 12:23 PM EST Legal Sex Male 10:35 PM EDT Gender Identity Male 01/03/2022 12:23 PM EST Sexual Orientation Straight 01/03/2022 12 :23 PM EST Last Filed Vital Signs Vital Sign Reading Time Taken Comments Blood Pressure 125/71 05/18/2025 8:48 AM EDT Pulse 92 05/18/2025 8:48 AM EDT Temperature 36.4 C (97.5 F) 05/18/2025 8:48 AM EDT Respiratory Rate 18 05/18/2025 8:48 AM EDT Oxygen Saturation 96% 05/18/2025 8:48 AM EDT Inhaled Oxygen Concentration - - Weight 120.4 kg (265 lb 6.9 oz) 05/18/2025 8:48 AM EDT Height 175.3 cm (5' 9 ) 03/15/2025 2:52 PM EDT Body Mass Index 39.2 03/15/2025 2:52 PM EDT Plan of Treatment Upcoming Encounters Date Type Department Care Team (Late st Contact Info) Description 08/17/2025 9:10 AM EDT Blood Draw Laboratory Services, [facility] [place] [address] [address] Tiffanie Kauffman PA-C [address] [place] [address] [email or web address] Audrey Bush MD, MPH [address] [place] [address] [email or web address] 08/17/2025 10:00 AM EDT Office Visit [facility], [facility] at [address] [address] Tiffanie Kauffman PA-C [address] [place] [phone] [email or web address] Audrey Bush MD, MPH [address] [place] [id number] [email or web address] 08/17/2025 11:00 AM EDT Infusion Infusion Therapy Services [facility] at [address] [address] Audrey Bush MD, MPH [address] [place] [phone] [email or web address] Health Maintenance Due Date Last Done Comments HEMOGLOBIN A1C 1955 HEPATITIS C SCREENING 1973 PNEUMOCOCCAL VACCINES (50+ years) (1 of 2 - PCV) 1974 COLOGUARD 2000 COLONOSCOPY 2000 COLORECTAL CANCER SCREENING 2000 FIT TEST 2000 FOBT 2000 SIGMOIDOSCOPY 2000 VIRTUAL COLONOSCOPY 2000 ABDOMINAL AORTIC ANEURYSM (AAA) SCREENING 2020 DIABETIC EYE EXAM 05/09/2023 TSH LEVEL 02/11/2025 02/12/2024, 11/06/2023 COVID-19 VACCINE ( season) 2025 09/15/2024, 12/06/2023, 09/03/2022, Additional history exists BLOOD PRESSURE 11/17/2025 05/18/2025 DEPRESSION SCREENING 01/14/2026 01/14/2025 CREATININE LEVEL 05/18/2026 05/18/2025, , 10/21/2024, Additional history exists POTASSIUM LEVEL 05/18/2026 05/18/2025, 01/02, 10/21/2024, Additional history exists Adult Td,Tdap Booster 03/05/2028 03/05/2018 RSV VACCINE Completed 10/29/2023 ZOSTER VACCINES Completed 06/09/2024, 04/07/2024 SMOKING STATUS SCREENING (Once After 26 Yrs) Completed 03/22/2025 HEPATITIS A VACCINES Aged Out No long er eligible based on patient's age to complete this topic HIB VACCINES Aged Out No longer eligi ble based on patient's age to complete this topic MENINGOCOCCAL VACCINES (ACWY) Aged Out No longer eligible based on patient's age to complete this topic MENINGOCOCCAL VACCINES (B) Aged Out N o longer eligible based on patient's age to complete this topic Medical Devices Implanted Type Area Drug Discovery Informatics Specialist Device Identifier Shelf Expiration Date Model / Serial / Lot Kit Mixing Verte[employer]ement - [id number] Implanted:Qty: 1 on 03/22/2025 by Shivam De Jesus MD, MINDI at [facility] Left: Spine Thoracic [employer] 08.702.017 S / / [id number] Kit Mixing Verte[employer] - [id number] Implanted:Qty: 1 on 03/22/2025 by Shivam De Jesus MD, MINDI at [facility] Right: Spine Thoracic [employer] 08.702.017 S / / [id number] Procedures Procedure Name Priority Date/Time Associated Diagnosis Comments TESTOSTERONE, TOTAL Routine 05/18/2025 7 :49 AM EDT Prostate cancer PSA DIAGNOSTIC (MONITORING) Routine 05/18/2025 7:49 AM EDT Prostate cancer COMPREHENSIVE METABOLIC PANEL Routine 05/18/2025 7:49 AM EDT Prostate cancer HC BLOOD COUNT COMPLETE AUTO&AUTO DIFRNTL WBC Routine 05/18/2025 7:49 AM EDT Prostate cancer TSH Routine 02/12/2024 9:36 AM EDT Prostate cancer from Last 3 Months or Most Recently Relevant to Health Maintenance Results * (ABNORMAL) Comprehensive metabolic panel (05/18/2025 7:49 AM EDT) Pathologist [facility] SODIUM 141 136 - 145 mmol/L [facility]# [id number] POTASSIUM 3.4 3.4 - 5.1 mmol/L [facility]# [id number] CHLORIDE 102 98 - 107 mmol/L [facility]# [id number] CO2 25 22 - 31 mmol/L [facility]# [id number] BUN 17 6 - 23 mg/dL [facility]# [id number] CREATININE 1.12 0.50 - 1.20 mg/dL [facility]# [id number] GLUCOSE 123(H) 70 - 100 mg/dL [facility]# [id number] ALBUMIN 3.8 3.5 - 5.2 g/dL [facility]# [id number] TOTAL PROTEIN 7.0 6.4 - 8.3 g/dL [facility]# [id number] CALCIUM 9.3 8.8 - 10.7 mg/dL [facility]# [id number] ALKALINE PHOSPHATASE 135(H) 40 - 129 U/L [facility]# [id number] TOTAL BILIRUBIN 0.5 0.2 - 1.2 mg/dL [facility]# [id number] AST 13 <41 U/L [facility]# [id number] ALT 7 <42 U/L [facility]# [id number] GLOBULIN 3.2 2.3 - 4.2 g/dL [facility] LIC# [id number] EGFR 71 >59 mL/min/1.7 3m2 [facility]# [id number] Comment:Estimated glomerular filtration rate calculated using the CKD-EPI refit equation. ANION GAP 14 7 - 17 mmol/L [facility] LIC# [id number] Blood 05/18/2025 7:49 AM EDT 05/18/2025 7:53 AM EDT Audrey Bush MD, MPH LAB BLOOD ORDER NICHOLE Final Result Performing Organization Address City/[facility]/ZIP Co de Phone Number [facility]# [id number] [address] [place] [address] * PSA diagnostic (monitoring) (05/18/2025 7:49 AM EDT) PSA Monitoring <0.02 0.00 - 4.00 ng/mL [facility] LIC# [id number] Blood 05/18/2025 7:49 AM EDT 05/18/2025 7:53 AM EDT Audrey Bush MD, MPH LAB BLOOD ORDER NICHOLE Final Result Performing Organization Address City/[facility]/ZIP Co de Phone Number [facility] LIC# [id number] [address] [place] [address] * (ABNORMAL) CBC and differential (05/18/2025 7:49 AM EDT) WBC 9.49 4.00 - 10.00 K/uL [facility] LIC# [id number] RBC 4.11(L) 4.50 - 6.40 M/uL [facility] LIC# [id number] HGB 12.5(L) 13.5 - 18.0 g/dL [facility]# [id number] HCT 38.6(L) 40.0 - 54.0 % [facility] LIC# [id number] PLT 253 150 - 450 K/uL [facility] LIC# [id number] MCV 93.9 80.0 - 100.0 fL [facility] LIC# [id number] MCH 30.4 27.0 - 32.0 pg [facility] LIC# [id number] MCHC 32.4 32.0 - 36.0 g/dL [facility] LIC# [id number] RDW 13.8 11.5 - 14.5 % [facility] LIC# [id number] MPV 9.4 8.4 - 12.0 fL [facility] LIC# [id number] NRBC 0.00 0.00 /100 WBCs [facility] LIC# [id number] ABSOLUTE NRBC 0.00 0 K/uL [facility] LIC# [id number] DIFF METHOD Auto [facility] LIC# [id number] NEUTS 81.6(H) 48.0 - 76.0 % [facility] LIC# [id number] LYMPHS 8.7(L) 18.0 - 41.0 % [facility] LIC# [id number] MONOS 7.2 4.0 - 11.0 % [facility] LIC# [id number] EOS 1.5 0.0 - 5.0 % [facility] LIC# [id number] BASOS 0.7 0.00 - 1.50 % [facility] LIC# [id number] % IMMATURE GRANS 0.3 0.00 - 1.00 % [facility] LIC# [id number] ABSOLUTE NEUTS 7.74(H) 1.92 - 7.60 K/uL [facility] LIC# [id number] ABSOLUTE LYMPHS 0.83 0.72 - 4.10 K/uL [facility] LIC# [id number] ABSOLUTE MONOS 0.68 0.16 - 1.10 K/uL [facility] LIC# [id number] ABSOLUTE EOS 0.14 0.00 - 0.50 K/uL [facility] LIC# [id number] ABSOLUTE BASOS 0.07 0.00 - 0.15 K/uL [facility] LIC# [id number] ABS IMMATURE GRANS 0.03 0.00 - 0.10 K/uL [facility] LIC# [id number] Blood 05/18/2025 7:49 AM EDT 05/18/2025 7:53 AM EDT Audrey Bush MD, MPH LAB BLOOD ORDER NICHOLE Final Result Performing Organization Address [facility] Co de Phone Number [facility] LIC# [id number] [address] [place] [address] * (ABNORMAL) Testosterone, total (05/18/2025 7:49 AM EDT) TESTOSTERONE <3(L) 193 - 740 ng/dL [facility] LIC# [id number] Blood 05/18/2025 7:49 AM EDT 05/18/2025 7:53 AM EDT Audrey Bush MD, MPH LAB BLOOD ORDER NICHOLE Final Result Performing Organization Address City/[facility] Co de Phone Number [facility] LIC# [id number] [address] [place] [address] * TSH (02/12/2024 9:36 AM EDT) TSH 1.81 0.27 - 4.20 uIU/mL [facility] LIC# [id number] Blood 02/12/2024 9:36 AM EDT 02/12/2024 9:39 AM EDT Sunita Goode Sampson SAW OFFBEARER LAB BLOOD ORDERABLES Final Result Performing Organization Address City/State/[facility] Co de Phone Number [facility] LIC# [id number] [address] [place] [address], [facility] from Last 3 Months or Most Recently Relevant to Health Maintenance Insurance [employer] SUPPLEMENT MEDICARE PART A & B [employer] MED[employer] SUPPLEMENT MEDICARE PART A & B [employer] SUPPLEMENT MEDICARE PART A & B [employer] MEDEX SUPPLEMENT MEDICARE PART A & B [employer] MEDEX SUPPLEMENT MEDICARE PART A & B [employer] MEDEX SUPPLEMENT MEDICARE PART A & [place] [address] [place] [address] MEDEX SUPPLEMENT MEDICARE PART A & B [employer] SUPPLEMENT MEDICARE PART A & B [employer] SUPPLEMENT MEDICARE PART A & B Care Teams Lockstitch Binder Relationship Specialty Start Date End Date Kirstin Brooks MD [address] [facility] [address] [place] [address] PCP - General Internal Medicine 01/03/22 Krystyna Bowles MD, PhD [address] [place] [phone] [email or web address] Radiation Oncology 07/25/23 Kota Self MD [address] [place] [address] [email or web address] Radiation Oncology 09/03/23 Audrey Bush MD, MPH [address] [place] [phone] [email or web address] [facility] Medical Oncology 09/03/23 Renee Hood, RN [address] [place] [address] [email or web address] Primary Infusion Nurse 10/21/24 Shreya Solomon, ELANA [address] [place] [address] [email or web address] Associate Infusion Nurse 10/21/24 Francheska Jacobs, ELANA [address] [place] [address] [email or web address] Associate Infusion Nurse 10/21/24 Prema Lee, ELANA [address] [place] [address] [email or web address] Associate Infusion Nurse 01/19/25 Shivam De Jesus MD, MINDI [address] [place] [phone] [email or web address] Diagnostic Radiology 03/23/25 Additional Source Comments The information contained in this document represents components of the legal health record. It is not the complete legal health record.Formerly [facility]
--- OUTSIDE RECORDS SUMMARY | 2025-07-06 14:14 | XMS_ITS | Clinical Summary ---
Author Organization [facility] Address [address] [place] [address] Phone Care Team Providers Care Client Service Representative Name Role Phone Kirstin Brooks MD Primary Care Provider [phone] Allergies No known active allergies Medications tiZANidine [...] 08/28/2021 Heart failure with preserved ejection fraction ([facility] V24, [facility] V28) 08/28/2021 HLD (hyperlipidemia) 02/21/2021 PVC's (premature ventricular contractions) 02/21 HTN (hypertension) 12/29/2020 PAF (paroxysmal atrial fibri llation) ([facility] V24, [facility] V28) 12/29/2020 Type II or unspecified type diabetes mellitus with ketoacidosis, uncontrolled(250.12) ([facility] V24, [facility] V28) 12/29/2020 Encounters Date Type Department Care Team Description 06/09/2025 2:50 PM EDT - 06/09/2025 11:59 PM EDT Hospital Encounter [facility] Xray [address] [place] [address] Pain in thoracic spine Discharge Disposition: Home or Self Care 06/08/2025 Telephone [facility]mon[facility] - [place] [address] [facility] [address] [place] [address] Irma Patterson MD dme request ( apria ) from Last 3 Months Immunizations Name Administration Dates Next Due Pfizer SARS-CoV-2 COVID-19, mRNA, LNP-S, preservative free 01/12/2021,12/22/2020 Surgical History Surgery Date Site/Laterality Comments GASTRIC BAND ADJUSTMENT and removal CARDIOVERSION CARDIAC ABLATION CERVICAL FUSION Medical History Medical History Date Comments Hypertension Hyperlipidemia Diabetes mellitus ([facility] V24, [facility] V28) GERD (gastroesophageal reflux disease) Atrial fibrillation ([facility] V24, [facility] V28) Sleep apnea COPD (chronic obstructive pulmonary disease) ( [facility] V24, [facility] V28) Asthma Prostate cancer ([facility] V24, [facility] V28) Social History Tobacco Use Types Packs/Day [...] Description 08/24/2025 10:35 AM EDT Office Visit [facility] [address] [place] [id number] Luis Montoya MD [address] [place] [address] 02/23/2026 3:00 PM EDT [facility] [place] [address] [facility] [address] [place] [phone] Irma Patterson MD [address] [facility] [address] [place] [address] Health Maintenance Due Date Last Done Comments Diabetes: Annual Foot Exam 1965 Diabetes: Annual Retina Eye Exam 1965 Pneumococcal Vaccine: 50+ Years (1 of 2 - PCV) 1974 Abdominal Aortic Aneurysm (AAA) Screen 11/04/2022 Cholesterol Screening (Lipid Panel) 11/04/2022 Hepatitis C Screening 11/04/2022 Medicare Annual Wellness Visit 11/04/2022 Social Influencers of Health Screening 11/04/2022 Diabetes: Annual Urine Albumin-Creatinine Ratio (uACR) 11/16/2022 Diabetes: Blood Sugar Control Test (HGBA1C) 11/16/2022 Depression Screening 12/02/2024 COVID-19 Vaccine (8 - Pfizer risk 2023- season) 2025 09/15/2024, 12/06/2023, 09/03/2022, Additional history exists Influenza Vaccine (#1) 2025 , 10/10/2023, 09/03/2022, Additional history exists Falls Risk Assessment 10/14/2025 10/14/2024 Diabetes: Annual GFR (Glomerular Filtration Rate) 05/18/2026 05/18/2025, 01/19/2025, 10/21/2024, Additional history exists Hypertension/CHF/CAD Annual BMP Blood Test 05/18/2026 05/18/2025, 01/19/2025, 10/21/2024, Additional history exists DTaP,Tdap,and Td Vaccines (2 - Td or Tdap) 03/05/2028 03/05/2018 Colorectal Cancer Screening: Colonoscopy 10/14/2029 10/14/2024 RSV [...] Name Priority Date/Time Associated Diagnosis Comments XR THORACIC SPINE 2 VIEWS Routine 06/09/2025 2:59 PM EDT Pain in thoracic spine COLONOSCOPY Routine 10/14/2024 9:58 AM EST Hemorrhage of rectum and anus HM ANNUAL BMP BLOOD TEST Routine 07/29/2024 from Last 3 Months or Most Recently Relevant to Health Maintenance Results * XR Thoracic Spine 2 Views (06/09/2025 2:59 PM EDT) Anatomical Region Laterality Modality Spine, T-spine Radiographic Andie ging 06/10/2025 7:48 AM EDT Impressions 06/10/2025 7:50 AM EDT No acute findings. Moderately severe compression fracture of T8 was also seen on 02/16/2025. The patient has undergone percutaneous augmentation of T8 since the prior study. No new fracture is seen. The thoracic spine is moderately kyphotic. Bridging anterior and lateral degenerative osteophytes are present throughout the mid and lower thoracic spine. Code 24942 -------- FINAL REPORT -------- Dictated By: Gregory Reyes Dictated Date: 06/10/2025 07:48 ET Assigned Physician: Gregory Reyes Reviewed and Electronically Signed By: Gregory Reyes Signed Date: 06/10/2025 07:50 ET Workstation ID: [id number] Transcribed By: Self Edit Transcribed Date: 06/10/2025 07:48 ET Narrative 06/10/2025 7:50 AM EDT HISTORY: The patient is a 69-year-old male with upper back pain. No history of trauma is provided. FINDINGS: AP and lateral radiographs of the thoracic spine are obtained. The study demonstrates that the thoracic spine is moderately kyphotic. Alignment is otherwise anatomic. There is a moderately severe compression fracture of the T8 vertebral body as also seen on the prior study performed 02/16/2025; in the interim, the patient has undergone percutaneous augmentation. No new fracture is seen. Bridging anterior and lateral osteophytes are present throughout the mid and lower thoracic spine. The disc spaces are well-maintained. Procedure Note Gregory Reyes MD - 06/10/2025 HISTORY: The patient is a 69-year-old male with upper back pain. Nohistory of trauma is provided. FINDINGS: AP and lateral radiographs of the thoracic spine are obtained.The study demonstrates that the thoracic spine is moderately kyphotic.Alignment is otherwise anatomic. There is a moderately severe compressionfracture of the T8 vertebral body as also seen on the prior studyperformed 02/16/2025; in the interim, the patient has undergonepercutaneous augmentation. No new fracture is seen. Bridging anterior andlateral osteophytes are present throughout the mid and lower thoracicspine. The disc spaces are well-maintained. IMPRESSION: No acute findings. Moderately severe compression fracture of T8 was alsoseen on 02/16/2025. The patient has undergone percutaneous augmentation ofT8 since the prior study. No new fracture is seen. The thoracic spine ismoderately kyphotic. Bridging anterior and lateral degenerativeosteophytes are present throughout the mid and lower thoracic spine. Code 63702 -------- FINAL REPORT -------- Dictated By: Gregory Reyes Dictated Date: 06/10/2025 07:48 ET Assigned Physician: Gregory Reyes Reviewed and Electronically Signed By: Gregory Reyes Signed Date: 06/10/2025 07:50 ET Workstation ID: [id number] Transcribed By: Self Edit Transcribed Date: 06/10/2025 07:48 ET Mary MONTESINOS IMG XR PROCEDURES Final Result * COLONOSCOPY Anesthesia - MAC; [facility] ENDOSCOPY (10/14/2024 9:58 AM EST) Anatomical Region [...] 5 days. Narrative 10/14/2024 10:01 AM EST [facility] GI Patient Name: Jose Manuel Kam Procedure Date: 10/14/2024 9:30 AM Date of [...] verified by the physician, the nurse, the entertainment dancer and the non destructive evaluation technician in the pre-procedure area in the [...] was minimal. Procedure Code(s): --- Professional --- 22936, 59, Colonoscopy, flexible; with control of bleeding, any method 04903, Colonoscopy, flexible; with removal of tumor(s), polyp(s), or other lesion(s) by snare technique Diagnosis Code(s): --- Professional --- D12.3, Benign neoplasm of transverse colon (hepatic flexure or splenic flexure) K92.1, Melena (includes Hematochezia) CPT copyright 2020 [employer]. All rights reserved. The codes documented in this report are preliminary and upon script girl review may be revised to meet current compliance requirements. Garcia Vigil MD 10/14/2024 10:01:37 AM This report has been signed electronically.Garcia Vigil MD Number of Addenda: 0 Note Initiated On: 10/14/2024 9:30 AM Scope Withdrawal Time: 0 hours 17 minutes 21 seconds Scope In: 9:36:33 AM Scope Out: 9:57:43 AM Endoscopy Department at [facility] - [address] [place] [phone] Procedure Note Garcia Vigil MD - 10/14/2024 [facility] GI Patient Name: Jose Manuel Kam Procedure Date: 10/14/2024 9:30 AM Date of [...] the physician, the nurse, theanesthetist and the non destructive evaluation technician in the pre-procedure area in the [...] loss wasminimal. Procedure Code(s): --- Professional --- 15676, 59, Colonoscopy, flexible; with control of bleeding, any method 74510, Colonoscopy, flexible; with removal of tumor(s), polyp(s), or other lesion(s) by snare technique Diagnosis Code(s): --- Professional --- D12.3, Benign neoplasm of transverse colon (hepatic flexure or splenic flexure) K92.1, Melena (includes Hematochezia) CPT copyright 2020 [employer]. All rights reserved. The codes documented in this report are preliminary and upon script girl reviewmay be revised to meet current compliance requirements. Garcia Vigil MD 10/14/2024 10:01:37 AM This report has been signed electronically.Garcia Vigil MD Number of Addenda: 0 Note Initiated On: 10/14/2024 9:30 AM Scope Withdrawal Time: 0 hours 17 minutes 21 seconds Scope In: 9:36:33 AM Scope Out: 9:57:43 AM Endoscopy Department at [address] [phone] IMPRESSION: - Three 2 to 6 mm [...] Recently Relevant to Health Maintenance Insurance MEDICARE [facility] Care Teams Client Service Representative Relationship Specialty Start Date End Date Kirstin Brooks MD [address] [place] [address] PCP - General Internal Medicine 01/11/25
--- OUTSIDE RECORDS SUMMARY | 2025-07-06 14:14 | XMS_ITS | Patient Health Record ---
Author Organization [facility] [address] Address [address] [place] [address] Care Team Providers Care Spot Facer Name Role Phone Caridad Conn Unavailable [phone] BROOKS, ARNALDOSAIRA Unavailable [phone] CALVIN ALDRIDGE Unavailable [phone] TIERRA MICHELLE Unavailable [phone] MARCIA ROBLESYN Unavailable [phone] Allergies No Known Allergies Results Component Value Reference Range Notes CBC WITH AUTO DIFFERENTIAL Reviewed date:01/12/2025 09:10:01 [...] K/mcL Immature Granulocytes Absolute 0.03 0.00-0.03 K/mcL Prothrombin Time (PT)-[id number] Reviewed date:09/10/2024 04:18:33 PM Interpretation: Performing Lab:[facility], [address] [place] [address], Phone - [phone], Director - Kelvin Notes/Report: INR 1.8 0.9-1.1 Prothrombin Time 18.0 9.2-11.4 SEC CBC With Differential/Platel et-[id number] Reviewed date:2024 11:21:55 AM Interpretation: Performing Lab:[facility], [address] [place] [address], Phone - [phone], Director - Shannan Notes/Report: WBC 9.9 3.4-10.8 [...] % Immature Grans (Abs) 0.0 0.0-0.1 x10E3/uL XR LUMBAR SPINE 2-3 VIEWS Reviewed date:02/16/2025 04:08:55 PM Interpretation: Performing Lab: Notes/Report: Note See Note [facility], a member of [employer] Patient Name: JOSE MANUEL KAM Date of : 1955 Reason for Exam: THORACIC PAIN M54.6 Exam Date: 02/16/2025 [id number] EST Report Status: Final Ordering Provider: CARIDAD [...] Extensive atherosclerotic arterial calcification is noted. Code 75014 -------- FINAL REPOR T -------- Dictated By: Gregory Reyes Dictated Date: 02/16 11:45 ET Assigned Physician: Gregory Reyes Reviewed and Electronically Signed By: Gregory Reyes Signed Date: 025 11:49 ET Workstation ID: [id number] Transcribed By: Self Edit Transcribed Date: 02/16/2025 11:45 ET XR THORACIC SPINE 2 VIEWS Reviewed date:02/16/2025 04:06:08 PM Interpretation: Performing Lab: Notes/Report: Note See Note [facility], a member of [employer] Patient Name: JOSE MANUEL KAM Date of : 1955 Reason for Exam: pain Exam Date: 02/16/2025 [id number] EST Report Status: Final Ordering Provider: CARIDAD [...] the mid and lower thoracic spine. Code 42140 -------- FINAL REPOR T -------- Dictated By: Gregory Reyes Dictated Date: 02/16 11:42 ET Assigned Physician: Gregory Reyes Reviewed and Electronically Signed By: Gregory Reyes Signed Date: 025 11:45 ET Workstation ID: [id number] Transcribed By: Self Edit Transcribed Date: 02/16/2025 11:42 ET XR THORACIC SPINE 2 VIEWS Reviewed date:06/10/2025 03:10:52 PM Interpretation: Performing Lab: Notes/Report: Note See Note [facility], a member of [employer] Patient Name: JOSE MANUEL KAM Date of : 1955 Reason for Exam: pain Exam Date: 06/09/2025 [id number] EST Report Status: Final Ordering Provider: DELMAR ROBLES PCP: MARIBELL BROOKS HISTORY: The patient is a 69-year-old male with upper back pain. No history of trauma is provided. FINDINGS: AP and lat eral radiographs of the thoracic spine are obtained. [...] thoracic spine. The disc spaces are well-maintained. IMPRESSION: No acute findings. Moderately severe compression fracture of T8 was also seen on 02/16/2025. The patient has undergone percutaneous augmentation of T8 since the prior study. No new fracture is seen. The thoracic spine is moderately kyphotic. Bridging anterior and lateral degenerative osteophytes are present throughout the mid and lower thoracic spine. Code 17490 -------- FINAL REPOR T -------- Dictated By: Gregory Reyes Dictated Date: 06/10 07:48 ET Assigned Physician: Gregory Reyes Reviewed and Electronically Signed By: Gregory Reyes Signed Date: 025 07:50 ET Workstation ID: [id number] Transcribed By: Self Edit Transcribed Date: 06/10/2025 07:48 ET TISSUE EXAM Reviewed date:10/19/2024 10:58:13 AM [...] 10% NB formalin fixed and paraffin embedded. Comp. Metabolic Panel (14)-3 [id number] Reviewed date:01/07/2025 02:47:01 PM Interpretation: Performing Lab:[facility], [address], [place], Phone - [phone], Director - Shannan Notes/Report: Glucose 107 70-99 [...] 8 0-44 IU/L Calcitriol(1,25 di-OH Vit D) -808150 Reviewed date:01/07/2025 08:59:28 AM Interpretation: Performing Lab:[facility], [address] [place] [address], Phone - [phone], Director - MDJodry Notes/Report: Calcitriol(1,25 di-OH Vit D) 34.0 24.8-81.5 pg/mL CBC With Differential/Platel et-855651 Reviewed date:01/07/2025 02:46:41 PM Interpretation: Performing Lab:[facility], [address] [facility], Phone - [phone], Director - MDJodry Notes/Report: WBC 11.5 3.4-10.8 x10E3/uL RBC 4.49 [...] % Immature Grans (Abs) 0.0 0.0-0.1 x10E3/uL TSH-[id number] Reviewed date:01/07/2025 08:59:43 AM Interpretation: Performing Lab:[facility], [address] [place] [address], Phone - [phone], Director - Shannan Notes/Report: TSH 1.810 0.450-4.500 uIU/mL Vitamin F40-852165 Reviewed date:01/07/2025 08:59:09 AM Interpretation: Performing Lab:[address], Phone - [phone], Director - Shannan Notes/Report: Vitamin B12 705 709-1871 pg/mL Pirscilla Perez CMP14 Default A hand-written panel/profile was received from your office. In accordance with the [facility] Ambiguous Test Code Policy dated June 2003, we have completed your order by using the closest currently or formerly recognized AMA panel. We have assigned Comprehensive Metabolic Panel (14), Test Code #219259 to this request. If this is not the testing you wished to receive on this specimen, please contact the [facility] Client Inquiry/Technical Services Department to clarify the test order. We appreciate your business. RPR, Rfx Qn RPR/Confirm TP-0 31237 Reviewed date:01/07/2025 09:00:04 AM Interpretation: Performing Lab:[address], Phone - [phone], Director - Shannan Notes/Report: RPR Non Reactive Non Reactive Prothrombin Time (PT)-[id number] Reviewed date:08/18/2024 04:33:57 PM Interpretation: Performing Lab:[facility], [address] [place] [address], Phone - [phone], Director - Kelvin Notes/Report: INR 1.8 0.9-1.1 Prothrombin Time 18.5 9.2-11.4 SEC CBC With Differential/Platel et-[id number] Reviewed date:08/18/2024 04:34:01 PM Interpretation: Performing Lab:[address], [place], Phone - [phone], Director - Shannan Notes/Report: WBC 8.8 3.4-10.8 [...] % Immature Grans (Abs) 0.1 0.0-0.1 x10E3/uL Reason For Referral Reason [facility]; compulsive behaviors, mood d/o; Neurosych eval- decreased memory Diagnosis 1 Memory changes (R41. 3) Diagnosis 2 Compulsive buying (F 42.8) Diagnosis 3 Mood disorder (F39) Referral Organization [facility] [address] Referring Provider First Name MARIBELL Referring Provider Last Name BROOKS Referring Provider Speciality Internal M edicine Referred Provider Specialty Neuropsychia try General Notes [facility] , (p) [phone], (f) [phone] Clinical Notes Susan Clement 08:44:35 AM > referral faxed with Filiberto hammonds Redena 01/13/2025 09:18:31 AM > I called the office, and they do not see patients over 65 years old with memory issues. They advised sending the referral to the memory clinic. Faxed. phone: [phone], Fax: [phone], [facility] , fax - [phone], Pt requested we also fax this referral to neuro psych attn to jorge , fax- [phone] , faxed , phone - [phone] Referral Priority Routine Reason evaluate & treat Diagnosis 1 Memory changes (R41. 3) Referral Organization [facility] [address] Referring Provider First Name Caridad Referring Provider Last Name Martha Referring Provider Speciality Internal M edicine Referred Provider Specialty Neurology General Notes Pooja Ross 01/01 10:28:21 AM >manually faxed to [facility] nuerology at fax#[phone], their phone number is [phone] Clinical Notes Susan Clement 01:16:10 PM > manually refaxed with MRI and lab results, Roberto De Los Santos 01/13/2025 09:24:59 AM > I called the office, and they do not see patients over 65 years old with memory issues. They advised sending the referral to the memory clinic. Faxed. phone: [phone], Fax: [phone], Marcello Rao 01/14/2025 02:24:58 PM > re faxed referral to memory clinic, Mary Ellen Yanez 02/09/2025 11:07:59 AM >, faxed labs Referral Priority Routine Medications Medication SIG (Take, Route, Frequency, Duration) Notes Start Date End Date Status Calcium 600 MG 1 tablet with meals Orally Twice a day Active Pantoprazole Sodium 40 mg TAKE 1 TABLET DAILY Active Vitamin D 50 MCG (1999) 1 tablet Orally Once a day Active Warfarin Sodium 5 mg TAKE 1 TABLET DAILY Active Abiraterone Acetate 500 MG one tablet Oral once daily; Duration: 30 days Not-Taking Journavx 50 MG as directed Orally; Duration: 10 days 2 tablets x 1 dose now, then 1 tablet every 12 hours x 3 doses, then 1 tablet every 24 hours thereafter for acute pain 03/04/2025 Not-Taking dilTIAZem HCl ER 300 MG 1 capsule Orally Once a day Active tiZANidine HCl 2 MG 1 tablet at bedtime Orally once daily; Duration: 30 days As needed as needed Active Levothyroxine Sodium 100 MCG TAKE 1 TABLET DAILY IN THE MORNING ON AN EMPTY STOMACH Active Nitroglycerin 0.[address] 1 TABLET BY MOUTH UNDER TONGUE; Duration: 30 days As needed Active traMADol HCl 50 MG 1 tablet as needed Orally twice a day; Duration: 30 days 04/05/2025 Active Losartan Potassium 100 mg TAKE 1 TABLET DAILY Active metFORMIN HCl 500 mg TAKE 1 TABLET DAILY WITH A MEAL Active Citalopram Hydrobromide 20 mg TAKE 1 TABLET DAILY orally once a day; Duration: 90 days Active Pravastatin Sodium 40 mg TAKE 1 TABLET D AILY orally once a day; Duration: 90 days Active Furosemide 40 mg TAKE 1 TABLET DAILY Active predniSONE 5 MG 1 tablet Orally Once a day Not-Taking Immunizations Vaccine Route Administration Date Status Comme [...] 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) Type 2 diabetes mellitus with unspecified complications (E11.8) Active confirmed Problem Morbid obesity (disorder) (575017301) Morbid (severe) obesity due to excess calories (E66.01) Active confirmed Problem Hyperlipidemia (20678161) Hyperlipidemia, unspecified (E78.5) Active confirmed Problem Periodic limb movement disorder (183724893) Periodic limb movement disorder (G47.61) Active confirmed Problem Chronic pain (72769868) Other chronic pain (G89.29) Active confirmed Problem Essential hypertension (95228048) Essential (primary) hypertension (I10) Active confirmed Problem Paroxysmal atrial fibrillation (574865915) Paroxysmal atrial fibrillation (I48.0) Active confirmed Problem Common cold (75731489) Acute nasopharyngitis [common cold] (J00) Active confirmed Problem Acute exacerbation of chronic obstructive airways disease (129014559) Chronic obstructive pulmonary disease with (acute) exacerbation (J44.1) Active confirmed Problem Chronic obstructive lung disease (28463860) Chronic obstructive pulmonary disease, unspecified (J44.9) Active confirmed Problem Adult health examination (132982307) Encounter for general adult medical examination without abnormal findings (Z00.00) Active confirmed Problem Morbid obesity (670176639) Morbid obesity (E66.01) Active confirmed Problem Disorder due to type 2 diabetes mellitus (536146952) 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, unspecified whether 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 control servicer insulin use (E11.8) Active confirmed Problem Hyperlipidaemia (15681263) Hyperlipidemia, unspecified hyperlipidemia type (E78.5) Active confirmed Problem Acquired hypothyroidism (137988594) Acquired hypothyroidism (E03.9) Active confirmed Problem Malignant tumor of prostate (434673746) Prostate cancer (C61) Active confirmed Problem Vitamin D deficiency (82349374) Vitamin D deficiency (E55.9) Active confirmed Problem Elevated PSA (897124239) Elevated PSA (R97.20) Active confirmed Problem Blood in stool (474127423) Blood in stool (K92.1) Active confirmed Problem Obstructive sleep apnea syndrome (33385113) ENE (obstructive sleep apnea) (G47.33) Active confirmed Problem Body mass index 40+ - morbidly obese (961168087) BMI 40.0-44.9, adult (Z68.41) Active confirmed Problem Use of anticoagulation (725867677) Chronic anticoagulation (Z79.01) Active confirmed Problem Type II diabetes mellitus without complication (650776067) Type 2 diabetes mellitus without complication, without long-term current use of insulin (E11.9) Active confirmed Problem Body mass index 40+ - severely obese (714712725) Body mass index [BMI] 45.0-49.9, adult (Z68.42) Active confirmed Problem Cough (17727010) Cough (R05.9) Active confirmed Problem Amnesia (79845955) Memory change s (R41.3) Active confirmed Problem Lumbosacral radiculopathy (5993755) Sciatic radiculitis (M51.17) Active confirmed Problem Lumbar pain (986552138) Lumbar pain (M54.50) Active confirmed Problem Mood disorder (42230144) Mood disorder (F39) Active confirmed Problem Obstructive sleep apnea syndrome (43882071) ENE on CPAP (G47.33) Active confirmed Problem White blood cell disorder (91502269) Abnormal white blood cell (WBC) (D72.9) Active confirmed Problem Compulsive buying (9315333) Compulsive buying (F42.8) Active confirmed Vital Signs Heart Rate 89 /min 06/09/2025 Temperature 98.5 degrees Fahrenheit 01/13/2025 Oximetry 96 % 06/09/2025 Blood pressure diastolic 80 mm Hg 06/09/2025 Height 69 in 06/09/2025 Blood pressure systolic 118 mm Hg 06/09/2025 Weight 260.1 lbs 06/09/2025 BMI 38.41 kg/m2 06/09/2025 Encounters Encounter Location Date Provider Diagnosis [facility] [address] [place] [address] 07/22/2024 DELMAR CADENAHAM Blood in stool K92.1 ; Paroxysmal atrial fibrillation I48.0 ; Hyperlipidemia, unspecified E78.5 ; 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, unspecified whether skilled nursing insulin use E11.8 ; Acquired hypothyroidism E03.9 and Type 2 diabetes mellitus without complication, without long-term current use of insulin E11.9 [facility] [address] 08/19/2024 DELMAR CADENAHAM Paroxysmal atrial fibrillation I48.0 ; Blood in stool K92.1 ; Hyperlipidemia, unspecified E78.5 ; 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, unspecified whether skilled nursing insulin use E11.8 ; Acquired hypothyroidism E03.9 ; Type 2 diabetes mellitus without complication, without long-term current use of insulin E11.9 and Prostate cancer C61 [facility] [address] [facility] [address] [place] [address] 09/17/2024 TALAL BROOKS Acute cellulitis L03 .90 ; Hyperlipidemia, unspecified E78.5 ; Paroxysmal atrial fibrillation I48.0 ; Chronic obstructive pulmonary disease, unspecified J44.9 and 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, unspecified whether termite control servicer insulin use E11.8 [facility] [address] [address] 10/01/2024 Caridad Svrcek Acute cellulitis L03 .90 ; Other chronic pain G89.29 ; Low back pain, unspecified M54.50 ; Chronic obstructive pulmonary disease, unspecified J44.9 and 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, unspecified whether skilled nursing insulin use E11.8 [facility] [address] 11/05/2024 Caridad Svrcek Low back pain, unspecified M54.50 ; Spinal stenosis of lumbar region with neurogenic claudication M48.062 ; Other chronic pain G89.29 ; Acute cellulitis L03.90 ; Paroxysmal atrial fibrillation I48.0 and Chronic anticoagulation Z79.01 [facility] [address] [address] 12/28/2024 Caridad Svrcek Memory changes R41.3 and Compulsive buying F42.8 [facility] [address] [address] 01/12/2025 Caridad Svrcek Memory changes R41.3 ; Compulsive buying F42.8 ; ENE on CPAP G47.33 and Periodic limb movement disorder G47.[address] [facility] [address] [place] [address] 01/13/2025 TIERRA MICHELLE Acute URI J06.9 ; Na naye congestion R09.81 and Body aches R52 [facility] [address] [address] 02/16/2025 Caridad Svrcek Memory changes R41.3 ; Acute bilateral thoracic back pain M54.6 ; Compulsive buying F42.8 ; ENE on CPAP G47.33 and Periodic limb movement disorder G47.61 [facility] [address] [address] 03/04/2025 Caridad Svrcek Compression fracture of T8 vertebra, initial encounter S22.060A [facility] [address] [address] 05/11/2025 Caridad Svrcek Memory changes R41.3 ; Compulsive buying F42.8 ; ENE on CPAP G47.33 ; Periodic limb movement disorder G47.61 ; Type 2 diabetes mellitus without complication, without long-term current use of insulin E11.9 ; Hyperlipidemia, unspecified hyperlipidemia type E78.5 ; Paroxysmal atrial fibrillation I48.0 and Encounter for examination of blood pressure without abnormal findings Z01.30 [facility] [address] [address] 06/09/2025 DELMAR ROBLES History of vertebral compression fracture Z87.81 and Thoracic spine pain M54.6 [facility] [address] [facility] [address] [place] [address] 07/22/2024 DELMAR ROBLES [facility] [address] 09/17/2024 TALAL BROOKS [facility] [address] [place] [address] 10/26/2024 TALAL BROOKS [facility] [address] [facility] [address] [place] [address] 11/13/2024 TALAL BROOKS [facility] [address] [facility] [address] [place], [place] 12/30/2024 Caridad Svrcek Memory changes R41.[address] [facility] [address] [facility] [address] [place], [place] 12/30/2024 TALAL BROOKS [facility] [address] [facility] [address] [place], [place] 01/07/2025 Caridad Svrcek Abnormal white blood cell (WBC) D72.9 [facility] [address] [facility] [address] [place], [place] 01/11/2025 Caridad Svrcek [facility] [address] [facility] [address] [place] [address] 01/12/2025 TALAL BROOKS [facility] [address] [facility] [address] [place] [address] 01/12/2025 Caridad Svrcek [facility] [address] [facility] [address] [place], [place] 01/13/2025 Caridad Svrcek [facility] [address] [facility] [address] [place], [place] 01/13/2025 TALAL BROOKS [facility] [address] [place] [address] 01/13/2025 TALAL BROOKS [facility] [address] [facility] [address] [place] [address] 01/15/2025 TALAL BROOKS [facility] [address] [facility] [address] [place] [address] 01/16/2025 DELMAR ROBLES [facility] [address] [facility] [address] [place] [address] 01/20/2025 Caridad Svrcek [facility] [address] [facility] [address] [place] [address] 02/02/2025 Caridad Svrcek [facility] [address] [facility] [address] [place] [address] 02/02/2025 Caridad Svrcek [facility] [address] [facility] [address] [place] [address] 02/16/2025 Caridad Svrcek [facility] [address] [facility] [address] [place] [address] 02/22/2025 Caridad Svrcek [facility] [address] [facility] [address] [place] [address] 03/04/2025 Caridad Svrcek [facility] [address] [facility] [address] [place] [address] 03/29/2025 Caridad Svrcek [facility] [address] [place] [address] 04/05/2025 Caridad Svrcek [facility] [address] [facility] [address] [place] [address] 04/16/2025 TALAL BROOKS [facility] [address] [place] [address] 05/19/2025 Caridad Svrcek [facility] [address] [facility] [address] [place] [address] 06/09/2025 Caridad Svrcek [facility] [address] [facility] [address] [place] [address] 06/10/2025 Caridad Svrcek [facility] [address] [facility] [address] [place] [address] 06/14/2025 Caridad Svrcek [facility] [address] [facility] [address] [place] [address] 06/18/2025 Caridad Svrcek [facility] [address] [facility] [address] [place] [address] 07/20/2024 TALAL BROOKS [facility] [address] [facility] [address] [place] [address] 08/18/2024 TALAL BROOKS [facility] [address] [facility] [address] [place] [address] 09/29/2024 CALVIN BOWSERT [facility] [address] [facility] [address] [place] [address] 11/06/2024 Caridad Svrcek [facility] [address] [facility] [address] [place] [address] 12/09/2024 Caridad Svrcek [facility] [address] [facility] [address] [place] [address] 12/14/2024 Caridad Svrcek [facility] [address] [facility] [address] [place] [address] 12/21/2024 Caridad Svrcek [facility] [address] [facility] [address] [place] [address] 01/13/2025 MARIBELL BROOKS [facility] [address] [facility] [address] [place] [address] 02/08/2025 Caridad Svrcek [facility] [address] [facility] [address] [place] [address] 02/09/2025 Caridad Svrcek [facility] [address] [facility] [address] [place] [address] 03/03/2025 Caridad Svrcek [facility] [address] [address] 03/04/2025 Caridad Svrcek Assessments Encounter Date Diagnosis (ICD Code) Assessment Notes Treatment Notes Treatment Clinical Notes Section Notes 07/22/2024 Paroxysmal atrial fibrillation (ICD-10 - I48.0) [...] reviewed. Dictation completed with the use of [employer] voice recognition software, prone to medical misidentifications [...] well, he is encouraged to follow-up with infection preventionist, Dr. 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 Reviewed return to [...] with [facility], due to see them again 10/21/2024. Currently taking Zytiga with prednisone. Plan to request records from [facility] for continued evaluation. #Hypothyroidism: Clinically the patient [...] reviewed. Dictation completed with the use of [employer] voice recognition software, prone to medical misidentifications [...] reviewed. Dictation completed with the use of [employer] voice recognition software, prone to medical misidentifications [...] and follows up with Coumadin clinic at [place].. Possible interaction with Coumadin and Keflex and [...] and follows up with Coumadin clinic at [place].. Possible interaction with Coumadin and Keflex and [...] symptoms. #Chronic low back pain. Followed by [facility] pain clinic and is currently getting [...] symptoms. #Chronic low back pain. Followed by [facility] pain clinic and is currently getting [...] for. #Chronic low back pain. Followed by [facility] pain clinic and is currently getting epidural injections without significant improvement. Had follow up MRI as above. #Constipation. Mild. Discussed bowel regimen. Start miralax once daily. Cut back if loose stools. He did have recent colonoscopy last month. #cellulitis- Resolved #A-fib. Denies any chest pain shortness of breath or palpitations. Rate controlled. Anticoagulated on Coumadin and managed by Coumadin clinic in [place]. Most recent INR yesterday was 2.1. Currently on Coumadin 5 mg 4 days a week and 2.5 mg 3 days a week. Dose has been stable for several years. Case discussed with collaborating physician Moustapha Brooks who reviewed the assessment and plan. Chart, medications, labs, vital signs reviewed. Dictation was accomplished with the use of [employer] voice recognition software, prone to medical misidentifications [...] for. #Chronic low back pain. Followed by [facility] pain clinic and is currently getting epidural injections without significant improvement. Had follow up MRI as above. #Constipation. Mild. Discussed bowel regimen. Start miralax once daily. Cut back if loose stools. He did have recent colonoscopy last month. #cellulitis- Resolved #A-fib. Denies any chest pain shortness of breath or palpitations. Rate controlled. Anticoagulated on Coumadin and managed by Coumadin clinic in [place]. Most recent INR yesterday was 2.1. Currently on Coumadin 5 mg 4 days a week and 2.5 mg 3 days a week. Dose has been stable for several years. Case discussed with collaborating physician Moustapha Brooks who reviewed the assessment and plan. Chart, medications, labs, vital signs reviewed. Dictation was accomplished with the use of [employer] voice recognition software, prone to medical misidentifications [...] lab workup. He is interested in seeing [facility] and is requesting a referral today. Will also refer to [facility] neurology and send for brain MRI. Follow-up pending results. #Compulsive buying. He has had an issue with compulsive spending for many years resulting in significant financial issues. He is currently on Celexa and would like to pursue further help with psychiatry and therapy. Requesting referral to [facility] behavioral health. His family is very involved and supportive. As above we will do further workup with labs imaging and referral. Case discussed with collaborating physician Moustapha Brooks who reviewed the assessment and plan. Chart, medications, labs, vital signs reviewed. Dictation was accomplished with the use of [employer] voice recognition software, prone to medical misidentifications [...] lab workup. He is interested in seeing [facility] and is requesting a referral today. Will also refer to [facility] neurology and send for brain MRI. Follow-up pending results. #Compulsive buying. He has had an issue with compulsive spending for many years resulting in significant financial issues. He is currently on Celexa and would like to pursue further help with psychiatry and therapy. Requesting referral to [facility]. His family is very involved and supportive. As above we will do further workup with labs imaging and referral. Case discussed with collaborating physician Moustapha Brooks who reviewed the assessment and plan. Chart, medications, labs, vital signs reviewed. Dictation was accomplished with the use of [employer] voice recognition software, prone to medical misidentifications [...] off for now. Would like to persue rangel conner as well. #Compulsive buying. He has had an issue with compulsive spending for many years resulting in significant financial issues. He is currently on Celexa and would like to pursue further help with psychiatry and therapy. Referred. Has good family support. #ENE. On CPAP/BiPAP. Followed by pulmonology. #Periodic limb movement disorder. [employer] wanted to start him on ropinirole for restless legs. He has declined to do so. We did discuss effect of poor sleep on memory and mood. Will request copy of sleep study to review. Case discussed with collaborating physician Moustapha Brooks who reviewed the assessment and plan. Chart, medications, labs, vital signs reviewed. Dictation was accomplished with the use of [employer] voice recognition software, prone to medical misidentifications [...] off for now. Would like to persue rangel conner as well. #Compulsive buying. He has had an issue with compulsive spending for many years resulting in significant financial issues. He is currently on Celexa and would like to pursue further help with psychiatry and therapy. Referred. Has good family support. #ENE. On CPAP/BiPAP. Followed by pulmonology. #Periodic limb movement disorder. [employer] wanted to start him on ropinirole for restless legs. He has declined to do so. We did discuss effect of poor sleep on memory and mood. Will request copy of sleep study to review. Case discussed with collaborating physician Moustapha Brooks who reviewed the assessment and plan. Chart, medications, labs, vital signs reviewed. Dictation was accomplished with the use of [employer] voice recognition software, prone to medical misidentifications [...] Dictation was accomplished with the use of [employer] voice recognition software, prone to medical misidentifications [...] Dictation was accomplished with the use of [employer] voice recognition software, prone to medical misidentifications [...] Dictation was accomplished with the use of [employer] voice recognition software, prone to medical misidentifications [...] Dictation was accomplished with the use of [employer] voice recognition software, prone to medical misidentifications [...] fracture. T8. CT ordered by specialist in [place] reviewd. Planning for Kyphoplasty in [place]- awaiting appt. Will discuss with his specialist this afternoon. Tramadol ineffective for pain control. Unfortunately, he is traveling to [place] Saturday with his grandchildren to go to [place]. Discussed No rides, lifting etc. He will be using a scooter while there. WIll trial Journavx for pain control. Discussed signs/symptoms to monitor for. He will let me know once he has kyphoplasty appt. Case discussed with collaborating physician Moustapha Brooks who reviewed the assessment and plan. Chart, medications, labs, vital signs reviewed. Dictation was accomplished with the use of [employer] voice recognition software, prone to medical misidentifications [...] Dictation was accomplished with the use of [employer] voice recognition software, prone to medical misidentifications [...] Did not tolerate ropinerol prescribed by Dr. aPtterson. #Type 2 DM. Will get updated comprehensive labs. He is working on lifestyle modiications, healthier diet and has lost 15 pounds in the past 4 months. #PAF. SR on exam. Anticoagulated on Warfarin. On diltiazem. Case discussed with collaborating physician Moustapha Brooks who reviewed the assessment and plan. Chart, medications, labs, vital signs reviewed. Dictation was accomplished with the use of [employer] voice recognition software, prone to medical misidentifications and grammatical errors. This is unintentional and the practitioner does try to identify and correct these, but some could still be present. Please do not hesitate to contact practitioner for clarification. All questions answered to patients satisfaction. Patient verbalized understanding of diagnosis and treatments explained. To call sooner prior to next visit it any questions/concerns arise. 06/09/2025 Thoracic spine pain (ICD-10 - M54.6) Jose Manuel is a 69-year-old male with a PMH of HTN, HLD, A-fib on anticoagulation, hypothyroidism, prostate cancer who presents for evaluation of ongoing back pain. #T8 compression fracture: Patient with history of T8 compression fracture s/p kyphoplasty 03/22/2025. Reports increased pain over the last 2 weeks. Denies eliciting injury. Plan to proceed with XR of the thoracic spine for continued valuation. Discussed importance of symptomatic treatment including use of heat, OTC anti-inflammatories. Consider use of tramadol as needed (patient has prescription). #Osteopenia: Bone density scan performed 06/29/2024 consistent with osteopenia. Patient should continue calcium 1200 mg p.o. daily and vitamin D 800-1000 mg daily. Per review of Tiffanie Kauffman PA-C note from [facility] patient will receive yearly Reclast for osteoporosis treatment pending dental clearance. All questions answered to the patients satisfaction. Patient demonstrates understanding of diagnosis and treatments discussed. Follow-up at next scheduled appointment, sooner should any questions/concerns arise. Case discussed with collaborating physician Jose Brooks who has reviewed the assessment/plan. Chart, medications, labs, and vital signs reviewed. Dictation completed with the use of [employer] voice recognition software, prone to medical misidentifications and grammatical errors. All errors are unintentional. Although the practitioner does try to identify and correct errors, some may be present. Please do not hesitate to contact the practitioner for clarification. 06/09/2025 History of vertebral compression fracture (ICD-10 - Z87.81) Jose Manuel is a 69-year-old male with a PMH of HTN, HLD, A-fib on anticoagulation, hypothyroidism, prostate cancer who presents for evaluation of ongoing back pain. #T8 compression fracture: Patient with history of T8 compression fracture s/p kyphoplasty 03/22/2025. Reports increased pain over the last 2 weeks. Denies eliciting injury. Plan to proceed with XR of the thoracic spine for continued valuation. Discussed importance of symptomatic treatment including use of heat, OTC anti-inflammatories. Consider use of tramadol as needed (patient has prescription). #Osteopenia: Bone density scan performed 06/29/2024 consistent with osteopenia. Patient should continue calcium 1200 mg p.o. daily and vitamin D 800-1000 mg daily. Per review of Tiffanie Kauffman PA-C note from [facility] patient will receive yearly Reclast for osteoporosis treatment pending dental clearance. All questions answered to the patients satisfaction. Patient demonstrates understanding of diagnosis and treatments discussed. Follow-up at next scheduled appointment, sooner should any questions/concerns arise. Case discussed with collaborating physician Jose Brooks who has reviewed the assessment/plan. Chart, medications, labs, and vital signs reviewed. Dictation completed with the use of [employer] voice recognition software, prone to medical misidentifications and grammatical errors. All errors are unintentional. Although the practitioner does try to identify and correct errors, some may be present. Please do not hesitate to contact the practitioner for clarification. 05/11/2025 ENE on CPAP (ICD-10 - G47.33) [...] Dictation was accomplished with the use of [employer] voice recognition software, prone to medical misidentifications [...] has since discontinued. Will follow-up with Dr. Najeebi next week. Case discussed with collaborating physician Moustapha Brooks who reviewed the assessment and plan. Chart, medications, labs, vital signs reviewed. Dictation was accomplished with the use of [employer] voice recognition software, prone to medical misidentifications [...] Dictation was accomplished with the use of [employer] voice recognition software, prone to medical misidentifications [...] Followed by pulmonology. #Periodic limb movement disorder. [employer] wanted to start him on ropinirole for restless legs. He has declined to do so. We did discuss effect of poor sleep on memory and mood. Will request copy of sleep study to review. Case discussed with collaborating physician Moustapha Brooks who reviewed the assessment and plan. Chart, medications, labs, vital signs reviewed. Dictation was accomplished with the use of [employer] voice recognition software, prone to medical misidentifications [...] next visit it any questions/concerns arise. 08/19/2024 Hyperlipidemia, unspecified (ICD-10 - E78.5) Jose [...] well, he is encouraged to follow-up with infection preventionist, Dr. 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 Reviewed return to [...] with [facility], due to see them again 10/21/2024. Currently taking Zytiga with prednisone. Plan to request records from [facility] for continued evaluation. #Hypothyroidism: Clinically the patient [...] reviewed. Dictation completed with the use of [employer] voice recognition software, prone to medical misidentifications [...] symptoms. #Chronic low back pain. Followed by [facility] pain clinic and is currently getting epidural injections without significant improvement. He has follow-up with them in 2-1/2 weeks and they may be considering an MRI to further evaluate. Will follow-up with me in 1 month sooner with any concerns. 11/05/2024 Other chronic pain (ICD-10 - G89.29) [...] for. #Chronic low back pain. Followed by [facility] pain clinic and is currently getting epidural injections without significant improvement. Had follow up MRI as above. #Constipation. Mild. Discussed bowel regimen. Start miralax once daily. Cut back if loose stools. He did have recent colonoscopy last month. #cellulitis- Resolved #A-fib. Denies any chest pain shortness of breath or palpitations. Rate controlled. Anticoagulated on Coumadin and managed by Coumadin clinic in [place]. Most recent INR yesterday was 2.1. Currently on Coumadin 5 mg 4 days a week and 2.5 mg 3 days a week. Dose has been stable for several years. Case discussed with collaborating physician Moustapha Brooks who reviewed the assessment and plan. Chart, medications, labs, vital signs reviewed. Dictation was accomplished with the use of [employer] voice recognition software, prone to medical misidentifications [...] and follows up with Coumadin clinic at [place].. Possible interaction with Coumadin and Keflex and patient has been educated and last INR was 1.8 and has follow-up with Coumadin clinic. Patient will see Caridad in 2 weeks for wound check 08/19/2024 Blood in stool (ICD-10 - K92.1) [...] well, he is encouraged to follow-up with infection preventionist, Dr. 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 Reviewed return to [...] with [facility], due to see them again 10/21/2024. Currently taking Zytiga with prednisone. Plan to request records from [facility] for continued evaluation. #Hypothyroidism: Clinically the patient [...] reviewed. Dictation completed with the use of [employer] voice recognition software, prone to medical misidentifications and grammatical errors. All errors are unintentional. Although the practitioner does try to identify and correct errors, some may be present. Please do not hesitate to contact the practitioner for clarification. 07/22/2024 Hyperlipidemia, unspecified (ICD-10 - E78.5) Jose [...] reviewed. Dictation completed with the use of [employer] voice recognition software, prone to medical misidentifications and grammatical errors. All errors are unintentional. Although the practitioner does try to identify and correct errors, some may be present. Please do not hesitate to contact the practitioner for clarification. 07/22/2024 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, unspecified whether skilled nursing insulin use (ICD-10 - E11.8) Jose Manuel [...] reviewed. Dictation completed with the use of [employer] voice recognition software, prone to medical misidentifications and grammatical errors. All errors are unintentional. Although the practitioner does try to identify and correct errors, some may be present. Please do not hesitate to contact the practitioner for clarification. 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 Reviewed return to [...] with [facility], due to see them again 10/21/2024. Currently taking Zytiga with prednisone. Plan to request records from [facility] for continued evaluation. #Hypothyroidism: Clinically the patient [...] reviewed. Dictation completed with the use of [employer] voice recognition software, prone to medical misidentifications [...] and follows up with Coumadin clinic at [place].. Possible interaction with Coumadin and Keflex and [...] symptoms. #Chronic low back pain. Followed by [facility] pain clinic and is currently getting [...] for. #Chronic low back pain. Followed by [facility] pain clinic and is currently getting epidural injections without significant improvement. Had follow up MRI as above. #Constipation. Mild. Discussed bowel regimen. Start miralax once daily. Cut back if loose stools. He did have recent colonoscopy last month. #cellulitis- Resolved #A-fib. Denies any chest pain shortness of breath or palpitations. Rate controlled. Anticoagulated on Coumadin and managed by Coumadin clinic in [place]. Most recent INR yesterday was 2.1. Currently on Coumadin 5 mg 4 days a week and 2.5 mg 3 days a week. Dose has been stable for several years. Case discussed with collaborating physician Moustapha Brooks who reviewed the assessment and plan. Chart, medications, labs, vital signs reviewed. Dictation was accomplished with the use of [employer] voice recognition software, prone to medical misidentifications [...] Followed by pulmonology. #Periodic limb movement disorder. [employer] wanted to start him on ropinirole for restless legs. He has declined to do so. We did discuss effect of poor sleep on memory and mood. Will request copy of sleep study to review. Case discussed with collaborating physician Moustapha Brooks who reviewed the assessment and plan. Chart, medications, labs, vital signs reviewed. Dictation was accomplished with the use of [employer] voice recognition software, prone to medical misidentifications [...] Dictation was accomplished with the use of [employer] voice recognition software, prone to medical misidentifications [...] Dictation was accomplished with the use of [employer] voice recognition software, prone to medical misidentifications [...] Dictation was accomplished with the use of [employer] voice recognition software, prone to medical misidentifications [...] Dictation was accomplished with the use of [employer] voice recognition software, prone to medical misidentifications [...] for. #Chronic low back pain. Followed by [facility] pain clinic and is currently getting epidural injections without significant improvement. Had follow up MRI as above. #Constipation. Mild. Discussed bowel regimen. Start miralax once daily. Cut back if loose stools. He did have recent colonoscopy last month. #cellulitis- Resolved #A-fib. Denies any chest pain shortness of breath or palpitations. Rate controlled. Anticoagulated on Coumadin and managed by Coumadin clinic in [place]. Most recent INR yesterday was 2.1. Currently on Coumadin 5 mg 4 days a week and 2.5 mg 3 days a week. Dose has been stable for several years. Case discussed with collaborating physician Moustapha Brooks who reviewed the assessment and plan. Chart, medications, labs, vital signs reviewed. Dictation was accomplished with the use of [employer] voice recognition software, prone to medical misidentifications [...] 2 diabetes mellitus with complication, unspecified whether skilled nursing insulin use (ICD-10 - E11.8) #Cellulitis. Left [...] symptoms. #Chronic low back pain. Followed by [facility] pain clinic and is currently getting epidural injections without significant improvement. He has follow-up with them in 2-1/2 weeks and they may be considering an MRI to further evaluate. Will follow-up with me in 1 month sooner with any concerns. 09/17/2024 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, unspecified whether skilled nursing insulin use (ICD-10 - E11.8) Patient treated for acute cellulitis to complete K-Flex and wound care done. Hyperlipidemia and back pain stable and patient will continue with current medications for COPD patient is on inhalers.. He has lost 30 pounds with diet and exercise he also is on Coumadin and follows up with Coumadin clinic at [place].. Possible interaction with Coumadin and Keflex and [...] well, he is encouraged to follow-up with infection preventionist, Dr. 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 Reviewed return to [...] with [facility], due to see them again 10/21/2024. Currently taking Zytiga with prednisone. Plan to request records from [facility] for continued evaluation. #Hypothyroidism: Clinically the patient [...] reviewed. Dictation completed with the use of [employer] voice recognition software, prone to medical misidentifications [...] reviewed. Dictation completed with the use of [employer] voice recognition software, prone to medical misidentifications and grammatical errors. All errors are unintentional. Although the practitioner does try to identify and correct errors, some may be present. Please do not hesitate to contact the practitioner for clarification. 08/19/2024 Type 2 diabetes mellitus without complication, [...] well, he is encouraged to follow-up with infection preventionist, Dr. 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 Reviewed return to [...] with [facility], due to see them again 10/21/2024. Currently taking Zytiga with prednisone. Plan to request records from [facility] for continued evaluation. #Hypothyroidism: Clinically the patient [...] reviewed. Dictation completed with the use of [employer] voice recognition software, prone to medical misidentifications and grammatical errors. All errors are unintentional. Although the practitioner does try to identify and correct errors, some may be present. Please do not hesitate to contact the practitioner for clarification. 07/22/2024 Type 2 diabetes mellitus without complication, [...] reviewed. Dictation completed with the use of [employer] voice recognition software, prone to medical misidentifications [...] for. #Chronic low back pain. Followed by [facility] pain clinic and is currently getting epidural injections without significant improvement. Had follow up MRI as above. #Constipation. Mild. Discussed bowel regimen. Start miralax once daily. Cut back if loose stools. He did have recent colonoscopy last month. #cellulitis- Resolved #A-fib. Denies any chest pain shortness of breath or palpitations. Rate controlled. Anticoagulated on Coumadin and managed by Coumadin clinic in [place]. Most recent INR yesterday was 2.1. Currently on Coumadin 5 mg 4 days a week and 2.5 mg 3 days a week. Dose has been stable for several years. Case discussed with collaborating physician Moustapha Brooks who reviewed the assessment and plan. Chart, medications, labs, vital signs reviewed. Dictation was accomplished with the use of [employer] voice recognition software, prone to medical misidentifications [...] next visit it any questions/concerns arise. 05/11/2025 Hyperlipidemia, unspecified hyperlipidemia type (ICD-10 - [...] Dictation was accomplished with the use of [employer] voice recognition software, prone to medical misidentifications [...] Dictation was accomplished with the use of [employer] voice recognition software, prone to medical misidentifications [...] well, he is encouraged to follow-up with infection preventionist, Dr. 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 Reviewed return to [...] with [facility], due to see them again 10/21/2024. Currently taking Zytiga with prednisone. Plan to request records from [facility] for continued evaluation. #Hypothyroidism: Clinically the patient [...] reviewed. Dictation completed with the use of [employer] voice recognition software, prone to medical misidentifications [...] Dictation was accomplished with the use of [employer] voice recognition software, prone to medical misidentifications [...] Order Date MRI : Lumbosacral Spines 01/22/2019 X ray : Spines, thoracic spine MRI : Brain 12/30/2024 Chest X-ray PA and lateral 03/25/2018 MRI : Lumbar without contrast 12/26/2021 1,25OH VITAMIN D 12/28/2024 CBC (COMPLETE BLOOD COUNT) 10/20/2018 CBC (COMPLETE BLOOD COUNT) 09/21/2020 CBC (COMPLETE BLOOD COUNT) 06/16/2018 CBC (COMPLETE BLOOD COUNT) 06/16/2020 CBC (COMPLETE BLOOD COUNT) 12/27/2020 CBC (COMPLETE BLOOD COUNT) 05/11/2025 COMPREHENSIVE METABOLIC PANEL 05/11/2025 COMPREHENSIVE METABOLIC PANEL 06/16/2020 COMPREHENSIVE METABOLIC PANEL 12/27/2020 COMPREHENSIVE METABOLIC PANEL 06/16/2018 COMPREHENSIVE METABOLIC PANEL 09/21/2020 COMPREHENSIVE METABOLIC PANEL 10/20/2018 HEMOGLOBIN A1C 09/21/2020 HEMOGLOBIN A1C 10/20/2018 HEMOGLOBIN A1C 06/16/2018 HEMOGLOBIN A1C 12/27/2020 HEMOGLOBIN A1C 05/11/2025 LIPID PANEL 05/11/2025 LIPID PANEL 06/16/2020 LIPID PANEL 12/27/2020 LIPID PANEL 06/16/2018 LIPID PANEL 09/21/2020 LIPID PANEL 10/20/2018 OCCULT BLOOD SCREEN X 3 07/22/2024 PSA, SCREEN 06/16/2018 TSH 09/21/2020 TSH WITH REFLEX TO FT4 06/16/2018 URIC ACID 06/16/2018 URINALYSIS W/REFLEX CULTURE 05/11/2025 URINALYSIS, COMPLETE 12/27/2020 URINALYSIS, COMPLETE 06/16/2020 URINALYSIS, COMPLETE 06/16/2018 CBC 12/28/2024 Comprehensive Metabolic Panel 12/28/2024 CBC with Differential 01/07/2025 XR Ankle 3+ Views LT 11/10/2018 XR Chest 2 Views 10/09/2021 XR Hip 2+ Views bilat 10/09/2021 XR L-Spine 4+ Views 10/09/2021 XR Thoracic/L-Spine 2 Views 02/16/2025 MICROALB/CREAT RATIO, RANDOM 05/11/2025 VITAMIN B12 12/28/2024 PT/INR 07/22/2024 TSH 12/28/2024 LIPID PANEL, STANDARD 11/13/2022 LIPID PANEL, STANDARD 06/16/2024 LIPID PANEL, STANDARD 06/11/2022 COMPREHENSIVE METABOLIC PANEL 06/16/2024 COMPREHENSIVE METABOLIC PANEL 06/11/2022 COMPREHENSIVE METABOLIC PANEL 11/13/2022 CBC (INCLUDES DIFF/PLT) 11/13/2022 CBC (INCLUDES DIFF/PLT) 06/11/2022 CBC (INCLUDES DIFF/PLT) 06/16/2024 CBC (INCLUDES DIFF/PLT) 07/22/2024 URINALYSIS, COMPLETE 06/11/2022 URINALYSIS, COMPLETE 11/13/2022 HEMOGLOBIN A1c 06/11/2022 TSH 06/16/2024 Next Appt Details Provider Name:Caridad Conn, 0 08/10/2025 10:00:00 AM, [address] [place] [address], [phone], Insurance Providers Payer Name Payer Address Payer Phone Subscriber Number Group Number Insured Name Patient Relationship to Insured Coverage Start Date Coverage End Date Medicare Part B J14 [address] [place], [place] [phone] [id number] JOSE MANUEL KAM Self - patient is the insured 3 [employer]EX [address] [place] [address] [id number] JOSE MANUEL KAM Self - patient is the insured Medications Administered Medication Instructions Date of Administration Dosage Notes MICC B12 INJECTION 06/11/2022 [id number] Medical (General) [...]
--- OUTSIDE RECORDS SUMMARY | 2025-07-06 14:14 | XMS_ITS | Clinical Summary ---
Author Organization [facility] Address [address] [place] [address] Care Team Providers Care Elevator Technician Name Role Phone Kirstin Brooks MD Primary Care Provider [phone] Allergies Active Allergy Reactions Criticality Noted Date [...] Fall Risk Assessment 2020 Influenza Vaccine (#1) 2025 Hepatitis B Vaccines Aged Out No long er eligible based on patient's age to complete this topic RSV Ped < 20 months Aged Out No longe r eligible based on patient's age to complete this topic Care Teams Elevator Technician Relationship Specialty Start Date End Date Kirstin Brooks MD [address] [place] [address] PCP - General Internal Medicine 03/11/19 KIM LANDAVERDE Referring Physician Orthopedic Surgery 12/26/15
== END 2025-07-06 13:50 | disposition home or self-care (01) ==
LOC: HO.ACS 13:33
PROVIDERS: PCP Internal Medicine; Visit Provider Internal Medicine Medical Oncology
DX: Z79.01 Long term (current) use of anticoagulants (principal)

== ENCOUNTER → 2025-07-06 13:33 | Outpatient (BNVA) | payer MEDICARE, SELFPAY | PROVIDERS: PCP Internal Medicine; Visit Provider Internal Medicine Medical Oncology | DX: Z51.81 Encounter for therapeutic drug level monitoring (principal); Z79.01 Long term (current) use of anticoagulants | CPT/HCPCS: 85610; 99211 ==

== ENCOUNTER 2025-08-03 13:32 | Outpatient (AMB) | payer MEDICARE, SELFPAY ==
--- OUTSIDE RECORDS SUMMARY | 2025-07-30 23:59 | XMS_ITS | Continuity of Care Document ---
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 Role Phone Todd ALCANTARA, Kirstin Melendez Primary Care Physician [id number] Date(s): 07/23/25 - 07/30/25 [facility] [address] Attending Physician: Anuj Dent MD Referring Physician: Kirstin Brooks MD Encounter Type: Office Visit Allergies, Adverse Reactions, Alerts Substance Criticality Severity Reaction Reaction Severity Status Animal Dander NASAL CONGESTION/SNEEZING Active Medications abiraterone 500 mg oral tablet 0 Refills, Maintenance, 05/18/24 3:32:00 PM EDT, Partial fill upon patient request if the prescription is for a schedule II opioid drug. Start Date: 05/18/24 Status: Ordered Medication Dispense Status: Completed Total Allowed Fills: 1 Fills Dispensed: 0 abiraterone 500 mg oral tablet 0 Refills, Maintenance, 06/19/23 11:19:00 AM EDT, Partial fill upon patient request if the prescription is for a schedule II opioid drug. Start Date: 06/19/23 Status: Ordered Medication Dispense Status: Completed Total Allowed Fills: 1 Fills Dispensed: 0 Celexa 20 mg oral tablet 2 tablet = 40 mg, By Mouth, Daily, # 30 tablet, 0 Refills, Maintenance, 03/10/14 3:12:51 PM EDT, Tablet Start Date: 03/10/14 Status: Ordered Medication Dispense Status: Completed Quantity: 30.0 Unit: tablet Total Allowed Fills: 1 Fills Dispensed: 0 colchicine 0.6 mg oral tablet 1.2 mg, 2, tablet, By Mouth, Once, at first sign of gout flare followed by 1 tablet in 1 hour, # 10tablet, Refills 0, Maintenance, 02/19/18 7:05:43 PM EDT Start Date: 02/19/18 Status: Ordered Medication Dispense Status: Completed Quantity: 10.0 Unit: tablet Total Allowed Fills: 1 Fills Dispensed: 0 diazepam 5 mg oral tablet See Instructions, 1 tab PO 1 hr. prior to procedure. May repeat x 1 on arrival to [facility] if needed forprocedural anxiety, # 2 tablet, Refills 0, Tot. Refills 0, Maintenance, 06/15/24 1:21:00 PM EDT, Instructions Replace Required Details, Route to Pharmacy Electronically, [facility]/pharmacy #[id number], Partial fill upon patient request., 06/15/24, 176, cm, 06/15/24 8:40:00 EDT, Height Start Date: 06/15/24 Status: Ordered Medication Dispense Status: Completed Quantity: 2.0 Unit: tablet Total Allowed Fills: 1 Fills Dispensed: 0 diltiazem 300 mg/24 hours oral capsule, extended release 300 mg, 1, capsule, By Mouth, Daily, # 30 capsule, Refills 0, Maintenance, 01/15/23 3:23:00 PM EST, Partial fill upon patient request if the prescription is for a schedule II opioid drug. Start Date: 01/15/23 Status: Ordered Medication Dispense Status: Completed Quantity: 30.0 Unit: capsule Total Allowed Fills: 1 Fills Dispensed: 0 furosemide 40 mg oral tablet 40 mg, 1, tablet, By Mouth, Daily, # 30 tablet, Refills 0, Maintenance, 04/18/23 9:40:00 AM EDT, Partial fill upon patient request if the prescription is for a schedule II opioid drug. Start Date: 04/18/23 Status: Ordered Medication Dispense Status: Completed Quantity: 30.0 Unit: tablet Total Allowed Fills: 1 Fills Dispensed: 0 Jantoven 2.5 mg oral tablet 1 tablet = 2.5 mg, By Mouth, Daily, using three times a week, # 30 tablet, 0 Refills, Maintenance, 01/15/23 3:25:00 PM EST, Tablet, Partial fill upon patient request if the prescription is for a schedule II opioid drug. Start Date: 01/15/23 Status: Ordered Medication Dispense Status: Completed Quantity: 30.0 Unit: tablet Total Allowed Fills: 1 Fills Dispensed: 0 Jantoven 5 mg oral tablet 1 tablet = 5 mg, By Mouth, Daily, using four times a week, # 30 tablet, 0 Refills, Maintenance, 01/15/23 3:25:00 PM EST, Tablet, Partial fill upon patient request if the prescription is for a scheduleII opioid drug. Start Date: 01/15/23 Status: Ordered Medication Dispense Status: Completed Quantity: 30.0 Unit: tablet Total Allowed Fills: 1 Fills Dispensed: 0 losartan 100 mg oral tablet 1 tablet = 100 mg, By Mouth, Daily at bedtime, 0 Refills, Maintenance, 09/20/14 9:28:26 AM EDT Start Date: 09/20/14 Status: Ordered Medication Dispense Status: Completed Total Allowed Fills: 1 Fills Dispensed: 0 Metformin = 500 mg, By Mouth, Daily at supper, 0 Refills, Maintenance, 09/20/14 9:31:36 AM EDT Start Date: 09/20/14 Status: Ordered Medication Dispense Status: Completed Total Allowed Fills: 1 Fills Dispensed: 0 Pantoprazole Tablet = 40 mg, Daily, up to 2 tabs, 0 Refills, Maintenance, 03/09/14 5:20:45 AM EDT Start Date: 03/09/14 Status: Ordered Medication Dispense Status: Completed Total Allowed Fills: 1 Fills Dispensed: 0 Pravastatin = 20 mg, By Mouth, Daily at bedtime, 0 Refills, Maintenance, 04/09/11 12:27:40 AM EDT Start Date: 04/09/11 Status: Ordered Medication Dispense Status: Completed Total Allowed Fills: 1 Fills Dispensed: 0 predniSONE 5 mg oral tablet 0 Refills, Maintenance, 05/18/24 3:32:00 PM EDT, Partial fill upon patient request if the prescription is for a schedule II opioid drug. Start Date: 05/18/24 Status: Ordered Medication Dispense Status: Completed Total Allowed Fills: 1 Fills Dispensed: 0 Synthroid 100 mcg, Daily, Maintenance, 04/09/11 12:27:54 AM EDT Start Date: 04/09/11 Status: Ordered Medication Dispense Status: Completed Total Allowed Fills: 1 Fills Dispensed: 0 tiZANidine 2 mg oral tablet TAKE 1 TABLET AT BEDTIME ORALLY ONCE DAILY 30 DAYS Start Date: 04/18/23 Status: Ordered Medication Dispense Status: Completed Total Allowed Fills: 1 Fills Dispensed: 0 Tramadol By Mouth, 0 Refills, Maintenance, 01/30/22 9:02:00 AM EST, Partial fill upon patient request if the prescription is for a schedule II opioid drug. Start Date: 01/30/22 Status: Ordered Medication Dispense Status: Completed Total Allowed Fills: 1 Fills Dispensed: 0 Tylenol Extra Strength By Mouth, Every 6 hours, 0 Refills, Maintenance, 10/31/22 3:34:00 PM EST, Partial fill upon patientrequest if the prescription is for a schedule II opioid drug. Start Date: 10/31/22 Status: Ordered Medication Dispense Status: Completed Total Allowed Fills: 1 Fills Dispensed: 0 Problem List Condition Confirmation Course Effective Dates [...] on: 06/15/24 Sex Sex Representation Male (finding) Note * Sam Hampton: PERFORM Event Display: Patient Education/Instruction Authored Date: [id number] Ambulatory Adult Visit Summary [facility] [address] [place] [address] Name: JOSE MANUEL KAM : 1955?? Visit: 07/23/2025 08:45?? Ambulatory Visit Instructions ?? Your Care Team Primary Care Provider Kirstin Brooks MD? This Visit Provider Anuj Dent MD Vitals Signs Pulse Rate: 89 bpm Height: 176 cm Systolic Blood Pressure:??143 mm Hg??High Weight: 115 kg Diastolic Blood Pressure: 81 mm Hg Body Mass Index:??37.13 kg/m2??Critical Oxygen Saturation: 95 % Body surface area: 2.37 Medications The list below reflects the information in our records and provided by you today along with any changes made during this visit. Please continue your medications until treatment is completed or stopped by your provider. If this is different from the information you have or there are other questions,please contact the prescribing provider. What How Much When Instructions Unchanged abiraterone (abiraterone 500 mg oral tablet) Unchanged abiraterone (abiraterone 500 mg oral tablet) Unchanged Acetaminophen (Tylenol Extra Strength) Oral Every 6 hours Unchanged Citalopram (Celexa 20 mg oral tablet) 2 tab(s) Oral Daily Unchanged Colchicine (colchicine 0.6 mg oral tablet) 2 tab(s) Oral Once at first sign of gout flare followed by 1 tablet in 1 hour ?? Unchanged Diazepam (diazepam 5 mg oral tablet) See instructions 1 tab PO 1 hr. prior to procedure. ??May repeat x 1 on arrival to [facility] if needed for procedural anxiety ?? Unchanged Diltiazem (diltiazem 300 mg/ 24 hours oral capsule, extended release) 1 capsule Oral Daily Unchanged Furosemide (furosemide 40 mg oral tablet) 1 tab(s) Oral Daily Unchanged Levothyroxine (Synthroid) 100 Microgram Daily Unchanged Losartan (losartan 100 mg oral tablet) 1 tab(s) Oral Daily at Bedtime Unchanged Metformin 500 Milligram Oral Daily at supper Unchanged Pantoprazole (Pantoprazole Tablet) 40 Milligram Daily up to 2 tabs ?? Unchanged Pravastatin 20 Milligram Oral Daily at Bedtime Unchanged PredniSONE (predniSONE 5 mg oral tablet) Unchanged Tizanidine (tiZANidine 2 mg oral tablet) TAKE 1 TABLET AT BEDTIME ORALLY ONCE DAILY 30 DAYS ?? Unchanged Tramadol Oral Unchanged Warfarin (Jantoven 2.5 mg oral tablet) 1 tab(s) Oral Daily using three times a week ?? Unchanged Warfarin (Jantoven 5 mg oral tablet) 1 tab(s) Oral Daily using four times a week ?? Medications and Immunizations Administered Medications Given During Visit No medications given during this visit.?? Allergies (NKA means No Known Allergies) Animal Dander??(NASAL CONGESTION/SNEEZING) Common Emergency Awareness Tips IS IT A STROKE? Act FAST and Check for these signs: FACE Does the face look uneven? ARM Does one arm drift down? SPEECH Does their speech sound strange? TIME Call at any sign of stroke ?? Heart Attack Signs Chest discomfort: Most heart attacks involve discomfort in the center of the chest and lasts more than a few minutes, or goes away and comes back. It can feel like uncomfortable pressure, squeezing, fullness or pain. Discomfort in upper body: Symptoms can include pain or discomfort in one or both arms, back, neck, jaw or stomach. Shortness of breath: With or without discomfort. Other signs: Breaking out in a cold sweat, nausea, or lightheaded. Remember, MINUTES DO MATTER. If you experience any of these heart attack warning signs, call to get immediate medical attention! ?? Smoking can increase your chances of developing chronic health problems and can cause harmful effects to other family members in your house. If you smoke, you are strongly encouraged to quit. Please call [employer] at [phone] or 9-200-280Qwickly ([phone]) or log in to [email or web address] for referrals to smoking cessation programs. ?? The National Suicide Prevention Hotline is available 24/06 if you or someone you know needs to find a reason to keep living. By calling 4-385-828-[employer] Voice (1647) you'll be connected to a skilled, trained counselor at a crisis center in your area. [facility] You can view and manage your care through the patient portal or by using a health care marissa of your choosing. [employer] is a website that allows you to securely view your medical information including your hospital discharge summary, office visit summaries, medications and follow-up visits. You can also request appointments, renew medications, and request access to your medical information using a health care marissa of your choosing, or just ask a question. You can enroll at [email or web address] or register during your next office visit. [facility], in keeping with [facility] guidance, no longer requires face masks for staff, patientsor visitors in most situations. Similiar to time spent indoors at other locations, there is the chance that you were exposed to repiratory viruses during your time with us (such as flu or COVID-19). If you develop symptoms concerning for a viral respiratory infection, please seek testing (and treatment if indicated) from your medical provider or home test kit. ?? Disclaimer: The information provided is of a general nature and is intended to be used in conjunction with the recommendations and advice of your health care practitioner. Every effort has been made to ensure that the information provided is accurate and complete at the time it is provided to you however, as your needs change, or, as new information becomes available, different or additional instructions may be required. ?? If you have questions, please consult with your primary care provider or pharmacist, as appropriate. This information is not intended to serve as substitution for assessment and evaluation by a qualified health care provider. If you do not have a primary care provider, you may find a [facility] provider by calling [facility] Link at [phone]. Patient Care team information Care Team Personnel Name: Araceli aPrmar RN Position: [facility] RN Member Role: Primary Care Nurse Name: Radha Antony RN Position: [facility] RN Member Role: Primary Care Nurse Name: Kaylin Rashid Position: [facility] Outreach Member Role: [employer] Consulting Physician Name: Kirstin Brooks MD Position: [facility] Physician - Primary Care Member Role: PCP Address: [address] [place] [address], [address] Primary [place] [address]- Telecom: Name: Kathya Patel RN Position: [facility] RN Member Role: Primary Care Nurse Name: Macy Banda RN Position: [facility] RN Member Role: Primary Care Nurse Name: Yu Lynn Position: [facility] Member Role: Primary Care Nurse Care Team Related Persons Name: JOE KAM Insurance Providers Guarantor name: JOSE MANUEL KAM Health Plan Information #: 1 Payer: MEDICARE B Payer Identifier: NA Member Number: [id number] Group Number: NA Subscriber Identifier: [id number] Relationship to Subscriber: self Coverage Type: NA Coverage Verification Date: NA Telecom: NA Address: NA [facility] Plan Information #: 2 Payer: MEDEX SECONDARY ONLY Payer Identifier: NA Member Number: [id number] Group Number: NA Subscriber Identifier: [id number] Relationship to Subscriber: self Coverage Type: Medicare Other Coverage Verification Date: NA Telecom: NA Address: NA
--- OUTSIDE RECORDS SUMMARY | 2025-07-31 14:42 | XMS_ITS | Continuity of Care Document ---
Author Organization [facility] Address [address] [place] [id number] Support Name Relationship Address Phone LEPPER, JOSE [...] Unknown Un available Care Team Providers Care [employer] Supervisor Name Role Phone Todd ALCANTARA, Kirstin Melendez Primary Care Physician Encounter [facility] Date(s): 07/30/25 - 07/31/[address] [address]- Encounter Diagnosis Syncope and collapse(Final) - 07/30/25 Discharge Disposition: A-D/C Home Attending Physician: Deshaun Stern MD Admitting Physician: Yonis ALCANTARA, Rosa Referring Physician: Not on Staff, Referring MD Encounter Type: Disch Obv Allergies, Adverse Reactions, Alerts Substance Criticality Severity Reaction Reaction Severity Status Animal Dander NASAL CONGESTION/SNEEZING Active Medications Celexa 20 mg oral tablet 2 tablet [...] Replace Required Details, Route to Pharmacy Electronically, [facility]pharm[facility] #[id number], Partial fill upon patient request., 06/15/24, [...] hours oral capsule, extended release 300 mg, CD Capsule, By Mouth, 07/31/25 9:00:00 AM EDT Start Date: 07/31/25 Stop Date: 07/31/25 Status: Completed Medication Dispense Status: Completed Total Allowed Fills: [...] with comorbidity Confirmed Active Vertigo Confirmed Active Results Radiology Reports * Exam Date Time Procedure Performing Provider Status 07/30/25 2:43 PM Chest 2 Views Frontal and Lat Auth (Verified) Notes: (Chest 2 Views Frontal and Lat) Reason For Exam: Shortness of Breath RESULT: Chest 2 Views Frontal and Lat Chest 2 Views Frontal and Lat Hx of Present Illness: n [place] (07 30 25 13:06) Chief Complaint Comming from [employer]- had one drink- sudden loss of consiousness x 1 minute- right side clenched up-cvomied- lost bowel control- wokeup when ems got there- afib on warfarin; Reason: Shortness of Breath; Clinical Question(s): Pneumonia COMPARISON: Multiple priors with the most recent dated 10/09/2021. FINDINGS: Slightly limited examination due to the patient's body habitus and underpenetration. LINES AND TUBES: None. LUNGS AND PLEURA: Clear lungs. Normal pulmonary vascularity. No pleural effusion. No pneumothorax. HEART, MEDIASTINUM AND PETER: Persistent mild cardiomegaly unchanged. Normal mediastinal and hilar contour. BONES AND SOFT TISSUES: Moderate loss of height with moderate sclerosis involving T8 vertebral body appearing since the prior examination and probably representing changes of metastatic disease in a patient with known prostate cancer. Correlation with an MRI examination of the thoracic spine following contrast administration is advised is advised. IMPRESSION: Persistent mild cardiomegaly. Moderate loss of height with diffuse sclerosis involving T8 vertebral body which is new since the prior examination. This probably represents metastatic disease from the patient's known prostate cancer. Correlation with an MRI examination of the thoracic spine following contrast administration is advised. An actionable message ([place]) has been communicated via the [employer] system on 07/30/2025 3:15 PM, Message ID [id number]. WSN: [id number] Ordering Physician: Anuj Oh Dictated By: Cedric Saenz MD, V Dictated Date/Time: 07/30/25 3:19 pm Reviewed By: Cedric Saenz MD, V Signed By: Cedric Saenz MD, V Signed Date/Time: 07/30/25 3:19 pm Transcribed By: JOVON Transcribed Date/Time: 07/30/25 3:00 pm * Exam Date Time Procedure Performing Provider Status 07/30/25 2:[address] Head/Brain W/O Contrast Auth (Verified) Notes: (CT Head/Brain W/O Contrast) Reason For Exam: Trauma RESULT: CT Head/Brain W/O Contrast CT Head/Brain W/O Contrast INDICATION: Hx of Present Illness: n [place]uran (07 30 25 13:06) Coming from [employer]- had one drink- sudden loss of consciousness x 1 minute- right side clenched vomited- lost bowel control- woke up when ems got there- afib on warfarin; Reason: Trauma; Clinical Question(s): Hematoma; Order Comment: TECHNIQUE: Noncontrast head CT using axial technique and reconstructed in axial and coronal planes.Iterative reconstruction techniques are used to optimize dose and image quality. COMPARISON: None. FINDINGS: Patient motion artifact mildly degrades the study. Within this confine: Materials Assistant view findings, lines and tubes: None. BRAIN AND EXTRA-AXIAL SPACES: No acute parenchymal hemorrhage, midline shift, or mass effect. Carter-white matter differentiation is well preserved. No acute infarct. Negative insular ribbon sign. Atherosclerotic vascular calcification of the carotid arteries but negative hyperdense vessel sign. Ventricles, sulci, and basilar cisterns are normal. Mild-moderate low-density white matter changes. No subarachnoid hemorrhage. No subdural or epidural collection. CALVARIUM, SKULL BASE, AND SOFT TISSUES: No fractures or suspicious bony lesions. The paranasal sinuses and mastoid air cells are clear. Status-post bilateral lens extraction. The extracranial soft tissues are unremarkable. IMPRESSION: No acute intracranial pathology. WSN: [id number] Ordering Physician: Anuj Oh Dictated By: Angel Ray MD Dictated Date/Time: 07/30/25 2:44 pm Reviewed By: Angel Ray MD Signed By: Angel Ray MD Signed Date/Time: 07/30/25 2:44 pm Transcribed By: JOVON Transcribed Date/Time: 07/30/25 2:41 pm Social History Social History Type Response Smoking Status Never (less than 100 in lifetime) entered on: 06/15/24 Sex Sex Representation Male (finding) Admission evaluation note * Deion Vasquez DO: PERFORM Event Display: Admission Note Authored Date: [id number] Patient: ??JOSE MANUEL TAMEZ ? Age:??69 Years?Sex:??Male?:??1955?? Chief Complaint/Reason for Consultation Comming from [employer]- had one drink- sudden loss of consiousness x 1 minute- right side clenched up-cvomied- lost bowel control- woke up when ems got there- afib on warfarin History of Present Illness Jose Manuel Tamez??is a 69-year-old male with a past medical history significant for??A-fib on Coumadinhypertension??GERD??CHF??type 2 diabetes??prostate cancer??osteopenia hypothyroidism??and chronic pain??who presented to the hospital by EMS??after a witnessed syncopal episode??[place]. ?? Patient states that he woke up this morning??drank a cup of coffee??took 2 extra thinks extra strength Tylenol??to tramadol as prescribed and skipped breakfast??before playing 18 holes??of golf??without incident.?? Patient was??having a drink??with friends??at the golf club house??for a little while ??and states that his vision??began to go dark??his right hand and arm??cramped up??and then he room all the next thing he remembers??is waking up to??EMS??and feeling very out of it. ?? Patient states nothing like this has happened in the past.?Patient states he is now feeling 100%while in the hospital. ?? Patient CT head in emergency department was unremarkable.?? Patient??chest x-ray was notable for a T8??sclerotic changes suggestive of??mets??from prostate cancer.?On encounter patient??stated he had a T8-T9??vertebroplasty in March of this year. ?? Patient EKG notable for A-fib.??Patient on Coumadin. ?? Patient states he is compliant with all medications.?Patient states he has not seen his car and yard supervisor in over a year but should have an upcoming appointment with both his car and yard supervisor and his primary care doctor??in the near future. ?? Patient denies any recent illness, feelings of fever,??shortness of breath, chest pain,??nausea or diarrhea. Review of Systems A full review of systems was completed and is otherwise negative except as mentioned in history of present illness. Objective Vital Signs?? Temperature: 98.4 DegF (07/30/25 19:42:00) Temperature Route: Oral (07/30/25 19:42:00) Pulse Rate: 81 bpm (07/30/25 19:42:00) Pulse Rate, Lyin bpm (07/30/25 20:08:00) Systolic Blood Pressure, Lyin mm Hg (07/30/25 20:08:00) Diastolic Blood Pressure, Lyin mm Hg (07/30/25 20:08:00) Pulse Rate, Sittin bpm (07/30/25 20:08:00) Systolic Blood Pressure, Sittin mm Hg (07/30/25 20:08:00) Diastolic Blood Pressure, Sittin mm Hg (07/30/25 20:08:00) Pulse Rate, Standin bpm (07/30/25 20:08:00) Systolic Blood Pressure, Standin mm Hg (07/30/25 20:08:00) Diastolic Blood Pressure, Standin mm Hg (07/30/25 20:08:00) Respiratory Rate: 16 br/min (07/30/25 20:21:00) Systolic Blood Pressure: 123 mm Hg (07/30/25 19:42:00) Diastolic Blood Pressure: 73 mm Hg (07/30/25 19:42:00) Blood pressure sites: Arm, left (07/30/25 19:42:00) Mean Arterial Pressure: 90 mm Hg (07/30/25 19:42:00) Pulse Pressure: 50 mm Hg (07/30/25 19:42:00) Oxygen Saturation: 95 % (07/30/25 19:42:00) Mode of Delivery (Oxygen): Room air (07/30/25 19:42:00) Early Warning Score: 2 (07/30/25 20:22:01) ? Intake/Output? No Data Available ? Physical Exam General: No acute distress. HEENT: EOMI, mucous membranes moist. CV: Irregular rate and rhythm,??S1 S2 present. No murmurs, gallops, rubs appreciated. No JVD. No LE??edema. Respiratory: All beach clear to auscultation bilaterally. No wheezes, rales, rhonchi appreciated. Abdominal: Soft, nontender. No rebound tenderness. Bowel sounds noted all four quadrants. : No suprapubic tenderness. Neuro: A&OX3. Moving upper and lower extremities. No gross neurological deficits. Psych: Affect appropriate. Skin: No acute lesions, wounds, rashes. Assessment/Plan Diagnoses Syncope and collapse ??(R55) ?? Assessment:??Jose Manuel Tamez??is a 69-year-old male with a past medical history significant for??A-fib on Coumadin hypertension??GERD??CHF??type 2 diabetes??prostate cancer??osteopenia hypothyroidism??and chronic pain??who presented to the hospital by EMS??after a witnessed syncopal episode??[place]. ?? Syncope and collapse (R55):??Patient presents to the hospital after a witnessed syncopal episode??while eating lunch. ?? CTH??unremarkable.??Troponin negative. EKG shows A-fib.??On Coumadin. ?? Patient denies any similar event in the past. Patient returned to baseline mentation soon after syncopal episode. ?? Plan: - BMP for electrolyte abnormalities - Monitor for sign of arrhythmia - EKG PRN chest pain - Orthostatic vitals negative - Outpatient echocardiogram - TSH ?? VTE Prophylaxis:??Patient on coumadin ?VTE Prophylaxis Assessment:??VTE Prophylaxis Ordered ?? Other:??Chronic medical problems: A-fib: Continue on coumadin,??diltiazem HTN: Continue home losartan, home diltiazem CHF: Continue home furosemide Type II DM: Hold home metformin,??POC Glucose before meals and at bedtime, ISS, hypoglycemia measures Hypothyroidism: Continue home levothyroxine Chronic Pain: Tylenol PRN ?? Ongoing Medical Necessity:??Arrhythmia monitoring ?? Code Status:??Full code confirmed ? Patient seen and discussed with attending physician,??Dr. Gillette??MD Deion Vasquez, DO Internal Medicine Resident, PGY-1 ? Histories Allergies Allergies ?(Active and Proposed Allergies Only) Animal Dander? (Severity: Unknown severity, Onset: Unknown) ?Reactions: NASAL CONGESTION/SNEEZING ? Past Medical History/Problem List Active Problems(14) Afib Chronic pain COPD (chronic obstructive pulmonary disease) DM (diabetes mellitus), secondary GERD (gastroesophageal reflux disease) Gout Hyperlipidemia Hypertension Hypothyroid Marijuana use, current ongoing Morbid obesity, actual BMI 46 as of 02/19/2018 ENE on CPAP Severe obesity (BMI 35.0-39.9) with comorbidity Vertigo ? Social History Tobacco Details:??Use: Never (less than 100 in lifetime). Electronic Cigarette/Vaping Details:??Electronic Cigarette Use: Never. ? Family History Family History Unknown. ? Medications Home Medications Acetaminophen (Tylenol Extra Strength)??By Mouth Every 6 hours Citalopram (Celexa 20 mg oral tablet)??2 tab(s) 40 Milligram By Mouth Daily Colchicine (colchicine 0.6 mg oral tablet)??1.2 Milligram 2 tablet By Mouth Once at first sign of gout flare followed by 1 tablet in 1 hour Diazepam (diazepam 5 mg oral tablet)??See Instructions 1 tab PO 1 hr. prior to procedure. ??May repeat x 1 on arrival to [facility] if needed for procedural anxiety Diltiazem (diltiazem 300 mg/24 hours oral capsule, extended release)??300 Milligram 1 capsule By Mouth Daily Furosemide (furosemide 40 mg oral tablet)??40 Milligram 1 tablet By Mouth Daily Levothyroxine (Synthroid)??100 Microgram Daily Losartan (losartan 100 mg oral tablet)??1 tab(s) 100 Milligram By Mouth Daily at bedtime Metformin??500 Milligram By Mouth Daily at supper Pantoprazole (Pantoprazole Tablet)??40 Milligram Daily up to 2 tabs Pravastatin??20 Milligram By Mouth Daily at bedtime Tizanidine (tiZANidine 2 mg oral tablet)??TAKE 1 TABLET AT BEDTIME ORALLY ONCE DAILY 30 DAYS Tramadol??By Mouth Warfarin (Jantoven 5 mg oral tablet)??1 tab(s) 5 Milligram By Mouth Daily using four times a week Warfarin (Jantoven 2.5 mg oral tablet)??1 tab(s) 2.5 Milligram By Mouth Daily using three times a week ? Results Recent Labs BLOOD COUNT & DIFF WBC 7.2 k/mm3 ()?? 07/30/2025 13:36 RBC 3.91 m/mm3 (Low)?? 07/30/2025 13:36 Hgb 12.0 Gm/dL (Low)?? 07/30/2025 13:36 Hct 37.6 % (Low)?? 07/30/2025 13:36 MCV 96.2 femtoliters (High)?? 07/30/2025 13:36 MCH 30.7 pg ()?? 07/30/2025 13:36 MCHC 31.9 Gm/dL (Low)?? 07/30/2025 13:36 Platelet Count 247 k/mm3 ()?? 07/30/2025 13:36 RDW-SD 48.6 femtoliters (High)?? 07/30/2025 13:36 MPV 9.7 femtoliters ()?? 07/30/2025 13:36 Nucleated RBC (Automated) 0.0 #/100 WBC'S ()?? 07/30/2025 13:36 Abs. NRBC 0.0 k/mm3 ()?? 07/30/2025 13:36 Abs. Neut 5.4 k/mm3 ()?? 07/30/2025 13:36 Abs. Lymph 1.0 k/mm3 ()?? 07/30/2025 13:36 Abs. [place] 0.6 k/mm3 ()?? 07/30/2025 13:36 Abs. Eo 0.1 k/mm3 ()?? 07/30/2025 13:36 Abs. Baso 0.1 k/mm3 ()?? 07/30/2025 13:36 Neut % 75.6 % ()?? 07/30/2025 13:36 Lymph % 14.1 % (Low)?? 07/30/2025 13:36 [place] % 7.9 % ()?? 07/30/2025 13:36 Eos % 1.3 % ()?? 07/30/2025 13:36 Baso % 0.7 % ()?? 07/30/2025 13:36 Imm Gran 0.4 % ()?? 07/30/2025 13:36 Abs. Imm Gran 0.0 k/mm3 ()?? 07/30/2025 13:36 ?? CARDIAC High Sensitivity Troponin (HSTnT) 11 ng/L ()?? 07/30/2025 16:01 ?? CHEM GENERAL Glucose, POC 139 mg/dL (High)?? 07/30/2025 17:58 Lactate 2.1 mmol/L ()?? 07/30/2025 16:01 C-Reactive Protein 0.5 mg/dL ()?? 07/30/2025 13:36 ?? COAG INR 2.8 (High)?? 07/30/2025 13:36 Protime (PT) 26.3 seconds (High)?? 07/30/2025 13:36 APTT 37.1 seconds (High)?? 07/30/2025 13:36 ? * Nain ALCANTARA, Melonie Newton: PERFORM Event Display: Admission Note Authored Date: [id number] Attending attestation.??Patient seen and examined on Jul 30. Reviewed MONTSE GREEN. I have independently examined the patient, confirmed physical exam findings and developed the plan with the resident. Agree with assessment and plan as outlined in Dr. Vasquez's note. ?? 69-year-old man with paroxysmal A-fib, COPD, type 2 diabetes, GERD, hypertension, hyperlipidemia, hypothyroidism, class III obesity, ENE on CPAP, chronic back pain, prostate cancer with chemo and radiation, who presents to the emergency room for evaluation of syncope. Apparently he had a cup of coffee in the morning, took some Tramadol and went to play golf following which he had a drink with hisfriends when he had a syncopal episode. He had vomited and lost control of urine at that time. Whenhe came to, was back at his usual self. He was found to be hypotensive upon EMS arrival and broughtto the emergency room for further evaluation. Vital signs in the emergency room notable for him being afebrile, tachycardic, blood pressure 90/51. Labs notable for normal white cell count, no left shift, hemoglobin 12, hematocrit 37.6 with elevated MCV. INR 2.8, lactate 3 which came down to 2.1. High-sensitivity troponin 16 followed by 11. Head CT was reported as no acute intracranial pathology. Chest x-ray which I independently reviewed and interpreted: Persistent mild cardiomegaly. Moderate loss of height with diffuse sclerosis involving T8 vertebral body which is new since the prior exam. EKG which I independently reviewed and interpreted A-fib at 96 bpm. Orthostatic vitals obtained in the emergency room not suggestive of orthostasis. ?? Syncope and collapse:??Orthostatic vitals obtained.??Not suggestive of orthostasis.??There is mention of??vomiting and??loss of bladder control??but no mention of seizure-like movements??or tongue biting.??No murmur suggestive of??aortic stenosis. Continue to monitor on telemetry??to monitor for arr hythmia.??Outpatient TTE??to look for??underlying structural??heart disease. EKG study * Event Display: EKG Authored Date: * Event Display: ECG 12-Lead Authored Date: Please click on pdf link to open report * Event Display: ECG 12-Lead Authored Date: Ventricular Rate: 96 BPM QRS Duration: 96 ms Q-T Interval: 432 ms QTC Calculation(Bazett): 545 ms R [place]: 19 degrees T [place]: -4 degrees Atrial fibrillation Nonspecific T wave abnormality Abnormal ECG When compared with ECG of 03-Dec-2020 13:00, Atrial fibrillation has replaced Sinus rhythm ST no longer elevated in Inferior leads Nonspecific T wave abnormality now evident in Lateral leads QT has lengthened Confirmed by Tacho Alba ([id number]) on 07/30/2025 1:26:37 PM [place]: Tacho Alba Note * Leena ALCANTARA, Deshaun: PERFORM Event Display: Discharge/Transfer Note Hospital Authored Date: Patient: ??JOSE MANUEL TAMEZ ? Age:??69 Years?Sex:??Male?:??1955?? Patient Information Discharge Location: [facility], [place] Primary Care Physician: Kirstin Brooks MD Admit Date/Time: 07/30/2025 12:54 Discharge Disposition Discharge Disposition: Home: No Services Discharge Diagnosis Paroxysmal A-fib (I48.0) Type 2 diabetes mellitus without complication, without long-term current use of insulin (E11.9) ENE (obstructive sleep apnea) (G47.33) Syncope and collapse (R55) _ Discharge Medications Acetaminophen (Tylenol Extra Strength)??By Mouth Every 6 hours Citalopram (Celexa 20 mg oral tablet)??2 tab(s) 40 Milligram By Mouth Daily Colchicine (colchicine 0.6 mg oral tablet)??1.2 Milligram 2 tablet By Mouth Once at first sign of gout flare followed by 1 tablet in 1 hour Diazepam (diazepam 5 mg oral tablet)??See Instructions 1 tab PO 1 hr. prior to procedure. ??May repeat x 1 on arrival to [facility] if needed for procedural anxiety Diltiazem (diltiazem 300 mg/24 hours oral capsule, extended release)??300 Milligram 1 capsule By Mouth Daily Furosemide (furosemide 40 mg oral tablet)??40 Milligram 1 tablet By Mouth Daily Levothyroxine (Synthroid)??100 Microgram Daily Losartan (losartan 100 mg oral tablet)??1 tab(s) 100 Milligram By Mouth Daily at bedtime Metformin??500 Milligram By Mouth Daily at supper Pantoprazole (Pantoprazole Tablet)??40 Milligram Daily up to 2 tabs Pravastatin??20 Milligram By Mouth Daily at bedtime Tizanidine (tiZANidine 2 mg oral tablet)??TAKE 1 TABLET AT BEDTIME ORALLY ONCE DAILY 30 DAYS Tramadol??By Mouth Warfarin (Jantoven 5 mg oral tablet)??1 tab(s) 5 Milligram By Mouth Daily using four times a week Warfarin (Jantoven 2.5 mg oral tablet)??1 tab(s) 2.5 Milligram By Mouth Daily using three times a week ? Discharge Medications Unchanged Acetaminophen (Tylenol Extra Strength)Oral every 6 hours. Citalopram (Celexa 20 mg oral tablet)2 tab(s) Oral Daily. Colchicine (colchicine 0.6 mg oral tablet)2 tab(s) Oral once. at first sign of gout flare followed by 1 tablet in 1 hour. Diazepam (diazepam 5 mg oral tablet)1 tab PO 1 hr. prior to procedure. May repeat x 1 on arrival [facility] if needed for procedural anxiety. Refills: 0. Diltiazem (diltiazem 300 mg/24 hours oral capsule, extended release)1 capsule Oral Daily. Furosemide (furosemide 40 mg oral tablet)1 tab(s) Oral Daily. Levothyroxine (Synthroid)100 Microgram Daily. Losartan (losartan 100 mg oral tablet)1 tab(s) Oral Daily at Bedtime. [id number] Milligram Oral Daily at supper. Pantoprazole (Pantoprazole Tablet)40 Milligram Daily. up to 2 tabs. [id number] Milligram Oral Daily at Bedtime. Tizanidine (tiZANidine 2 mg oral tablet)TAKE 1 TABLET AT BEDTIME ORALLY ONCE DAILY 30 DAYS. TramadolOral. Warfarin (Jantoven 2.5 mg oral tablet)1 tab(s) Oral Daily. using three times a week. Warfarin (Jantoven 5 mg oral tablet)1 tab(s) Oral Daily. using four times a week. Discontinued abiraterone (abiraterone 500 mg oral tablet) abiraterone (abiraterone 500 mg oral tablet) PredniSONE (predniSONE 5 mg oral tablet) Allergies Allergies ?(Active and Proposed Allergies Only) Animal Dander? (Severity: Unknown severity, Onset: Unknown) ?Reactions: NASAL CONGESTION/SNEEZING ? PCP Follow-Up/Heads-Up Follow up for syncope -- would benefit from 2 week holter monitor Objective Assessment and Plan 69-year-old male with a past medical history significant for??A-fib on Coumadin hypertension??GERD??CHF??type 2 diabetes??prostate cancer??osteopenia hypothyroidism??and chronic pain??who presented to the hospital by EMS??after a witnessed syncopal episode??[place]. ?? Syncope and collapse (R55):??Patient presents to the hospital after a witnessed syncopal episode??while eating lunch. ?? CTH??unremarkable.??Troponin negative. EKG shows A-fib.??On Coumadin. ?? Patient denies any similar event in the past. Patient returned to baseline mentation soon after syncopal episode. ?? Telemetry negative for clinically significant arrhythmias.?? The patient has no focal neurologic deficits on exam Orthostatic vital signs negative On exam, patient does not appear volume overloaded, he??does not have any??murmurs. At this time, patient is clinically stable for discharge home.?? I have advised him to follow-up with his PCP??to obtain a 2-week??front desk monitor to??further evaluate for??arrhythmias. ? Other:??Chronic medical problems: A-fib: Continue on coumadin,??diltiazem HTN: Continue home losartan, home diltiazem CHF: Continue home furosemide Type II DM: Continue home medications on discharge Hypothyroidism: Continue home levothyroxine Chronic Pain: Tylenol PRN ? Vital Signs?? Temperature: 98.2 DegF (07/31/25 11:00:00) Temperature Route: Oral (07/31/25 11:00:00) Pulse Rate: 74 bpm (07/31/25 11:00:00) Respiratory Rate: 20 br/min (07/31/25 11:00:00) Systolic Blood Pressure:??167 mm Hg??High (07/31/25 11:00:00) Diastolic Blood Pressure:??93 mm Hg??High (07/31/25:00:00) Blood pressure sites: Arm, right (07/31/25 11:00:00) Mean Arterial Pressure: 118 mm Hg (07/31/25 11:00:00) Pulse Pressure: 74 mm Hg (07/31/25 11:00:00) Oxygen Saturation: 100 % (07/31/25 11:00:00) Mode of Delivery (Oxygen): Room air (07/31/25 11:00:00) Early Warning Score: 0 (07/31/25 14:42:49) ? Mobility & Ambulation Level Mobility & Ambulation Level No qualifying data available. ?? Therapeutic Activity Therapeutic Activities/Mobility/Balance?? No qualifying data available. ?? . Physical Exam Constitutional: Alert, in no distress. Mental Status: Oriented to person, place and time. Head: Normocephalic. Eyes: Pupils are equal, round and reactive to light. Extraocular muscles intact. Ear, Nose and Throat: Oropharynx clear, mucous membranes moist. Ears and nose without masses, lesions or deformities. Trachea midline. Neck: Supple, Full range of motion. Respiratory: Clear to auscultation. No wheezing, rales or rhonchi. Cardiovascular: S1 S2 regular. No murmurs, rubs or gallops. Gastrointestinal: Abdomen soft, non-tender, non-distended. Normal bowel sounds. No pulsatile mass. No hepatosplenomegaly. Genitourinary: No costovertebral angle tenderness. Neurologic: Cranial nerves II-XII grossly intact. No focal neurological deficits. Flexor plantar response. Moves all extremities spontaneously. Sensation intact bilaterally. Skin: No rashes or lesions. No petechiae or purpura.?? Musculoskeletal: No cyanosis or clubbing. No gross deformities. Normal range of motion. Heme/Lymphatics/Immun: Palpation of neck reveals no swelling or tenderness of neck nodes. Palpationof groin reveals no swelling or tenderness of groin nodes. Psychiatric: Normal mood and affect Pending Results INR ordered on 07/30/2025 INR ordered on 07/30/2025 Follow-Up Appointments Added Follow Up ?Time Frame ?Comments Todd ALCANTARA, Kirstin Melendez?1 week: call to discuss follow up visit Patient Instructions Please follow up with your PCP after discharge and have them arrange a 2 week front desk monitor to evaluate for any underlying abnormal heart rhythms. Call your cardiology office for a prompt follow up. Post Discharge Care Discharge ?07/31/25 13:41:00 EDT ?Order Comment:?? Discharge Prescriptions ?ePrescribed, 07/31/25 13:41:00 EDT ?Order Comment:?? Home Health Face to Face ^HomeHealthFTF Results Discharge Labs BLOOD COUNT & DIFF WBC 7.2 k/mm3 ()?? 07/30/2025 13:36 RBC 3.91 m/mm3 (Low)?? 07/30/2025 13:36 Hgb 12.0 Gm/dL (Low)?? 07/30/2025 13:36 Hct 37.6 % (Low)?? 07/30/2025 13:36 MCV 96.2 femtoliters (High)?? 07/30/2025 13:36 MCH 30.7 pg ()?? 07/30/2025 13:36 MCHC 31.9 Gm/dL (Low)?? 07/30/2025 13:36 Platelet Count 247 k/mm3 ()?? 07/30/2025 13:36 RDW-SD 48.6 femtoliters (High)?? 07/30/2025 13:36 MPV 9.7 femtoliters ()?? 07/30/2025 13:36 Nucleated RBC (Automated) 0.0 #/100 WBC'S ()?? 07/30/2025 13:36 Abs. NRBC 0.0 k/mm3 ()?? 07/30/2025 13:36 Abs. Neut 5.4 k/mm3 ()?? 07/30/2025 13:36 Abs. Lymph 1.0 k/mm3 ()?? 07/30/2025 13:36 Abs. Daviess 0.6 k/mm3 ()?? 07/30/2025 13:36 Abs. Eo 0.1 k/mm3 ()?? 07/30/2025 13:36 Abs. Baso 0.1 k/mm3 ()?? 07/30/2025 13:36 Neut % 75.6 % ()?? 07/30/2025 13:36 Lymph % 14.1 % (Low)?? 07/30/2025 13:36 Daviess % 7.9 % ()?? 07/30/2025 13:36 Eos % 1.3 % ()?? 07/30/2025 13:36 Baso % 0.7 % ()?? 07/30/2025 13:36 Imm Gran 0.4 % ()?? 07/30/2025 13:36 Abs. Imm Gran 0.0 k/mm3 ()?? 07/30/2025 13:36 ?? CARDIAC High Sensitivity Troponin (HSTnT) 11 ng/L ()?? 07/30/2025 16:01 ? CHEM GENERAL Sodium 141 mmol/L ()?? 07/31/2025 01:13 Potassium 3.9 mmol/L ()?? 07/31/2025 01:13 Chloride 107 mmol/L ()?? 07/31/2025 01:13 Bicarbonate Level 23 mmol/L ()?? 07/31/2025 01:13 Anion Gap 11 mmol/L ()?? 07/31/2025 01:13 Glucose Level 98 mg/dL ()?? 07/31/2025 01:13 Glucose, POC 98 mg/dL ()?? 07/31/2025 10:56 BUN 14 mg/dL ()?? 07/31/2025 01:13 Creatinine-Blood 1.15 mg/dL ()?? 07/31/2025 01:13 Estimated GFR Creatinine 69 ML/MIN/1.73 M2 ()?? 07/31/2025 01:13 Calcium 8.9 mg/dL ()?? 07/31/2025 01:13 Lactate 2.1 mmol/L ()?? 07/30/2025 16:01 C-Reactive Protein 0.5 mg/dL ()?? 07/30/2025 13:36 ? COAG INR 2.8 (High)?? 07/31/2025 01:13 Protime (PT) 27.0 seconds (High)?? 07/31/2025 01:13 APTT 37.1 seconds (High)?? 07/30/2025 13:36 ? ENDOCRINE/TUMOR MARKER TSH 1.38 uIU/mL ()?? 07/31/2025 01:13 ? Blood Glucose Trend Glucose Level: 98 mg/dL (07/31/25 01:13:00) Glucose, POC: 98 mg/dL (07/31/25 10:56:00) Glucose, POC: 98 mg/dL (07/31/25 05:39:00) ? 40??minutes spent on discharge * Adali Stoll RN: PERFORM Event Display: Discharge/Transfer Note Hospital Authored Date: [id number] Nursing Discharge Note Entered On: 07/31/2025 14:35 EDT Performed On: 07/31/2025 14:34 EDT by Adali Stoll RN Nursing Discharge Note 2 Discharge Time : 07/31/2025 14:32 EDT Discharge Level of Care at Discharge : Home/Prison/Foster Care Patient Left Unit Via : Wheelchair Patient Accompanied Off Unit with : Significant other DC Instructions Provided & Signed by Pt : Yes Patient Understands D/C Instructions : Yes Patient Instructions Discharge Signed : Yes Did Pt have Specialty Bed or Wound Vac : No Adali Stoll RN - 07/31/2025 14:34 EDT * Adali Stoll RN: PERFORM Event Display: Patient Education/Instruction Authored Date: [id number] Inpatient Adult Discharge Instructions. [address] [address] Name: JOSE MANUEL TAMEZ : 1955?? Visit: 07/30/2025 12:54?? Current Date: 07/31/2025 13:52 ?? Account: [id number]?? Inpatient Adult Discharge Instructions We would like to thank you for allowing us to assist you with your healthcare needs. The following includes patient education materials and information regarding your injury/illness. Our entire staffstrives to provide an excellent experience for our patients and their families. PLEASE ENSURE YOU FOLLOW-UP PER THE INSTRUCTIONS BELOW! ?? YOUR OPINION IS IMPORTANT TO US! Please complete the survey you may receive by mail or email. Your feedback will be used to make improvements to the healthcare experiences of our patients and their families. Surveys are administered by [employer] ?? If further treatment with your primary care physician or another doctor is recommended, it is important for you to keep the appointment. Call your primary care physician or return to the Emergency Department immediately if your condition worsens, fails to improve, or new symptoms develop. If you need to find a doctor, you can call [facility] Link for a referral at [phone] or toll free at [phone] or log in to [email or web address].. ?? [facility], in keeping with [facility] guidance, no longer requires face masks [...] medical provider or home test kit. ?? You can view and manage your care through the patient portal or by using a health care marissa of your choosing. [employer] is a website that allows you to securely view your medical information including your hospital discharge summary, office visit summaries, medications and follow-up visits. You can also request appointments, renew medications, and request access to your medical information using a health care marissa of your choosing, or just ask a question. You are entitled to know the individuals who participated in your treatment.This information is available within your medical record and will be provided upon your request. You can enroll at [email or web address] or register during your next office visit. You have been discharged from [facility], Patient Care Unit: D3B??. If you have any questions or concerns following your procedure, please call your surgeon?s office for assistance. [facility] Your Care Team Attending Physician Deshaun Stern MD?? Consulting Providers Deshaun Stern MD?? Discharging Providers Deshaun Stern MD Reason for Your Visit Comming from golfing- had one drink- sudden loss of consiousness x 1 minute- right side clenched up-cvomied- lost bowel control- woke up when ems got there- afib on warfarin?? Your Diagnosis ENE (obstructive sleep apnea) Paroxysmal A-fib Type 2 diabetes mellitus without complication, without long-term current use of insulin Tests Performed Below is a partial list of the tests performed during your hospitalization. You may have had other tests and procedures not included in this list. Please discuss all test results with your provider. Basic Metabolic Panel CBC w/ Differential CRP GLUCOSE POC High??Sensitivity??Troponin T INR Lactic Acid Level PTT Troponin T, High Sensitivity TSH CT Head/Brain W/O Contrast XR Chest 2 Views Frontal and Lat Basic Metabolic Panel?? C Reactive Protein (CRP)?? CBC w/ Differential?? CT Head/Brain W/O Contrast?? Glucose POC?? High??Sensitivity??Troponin T (Troponin T, High Sensitivity)?? INR?? Lactic Acid Level?? PTT?? TSH?? Chest 2 Views Frontal and Lat (XR Chest 2 Views Frontal and Lat)?? Primary Care Provider Todd ALCANTARA, Kirstin Melendez? Advance Directive Health Care Proxy on File No Discharge Vitals Temperature: 98.2 DegF Pulse Rate: 74 bpm Respiratory Rate: 20 br/min Systolic Blood Pressure:??167 mm Hg??High Diastolic Blood Pressure:??93 mm Hg??High Oxygen Saturation: 100 % Studies Pending All studies ordered during this hospital stay have been completed unless listed below. Please discuss all pending results with your provider listed above in these instructions. ?? INR?? What to do next Instructions From Your Doctor Please follow up with your PCP after discharge and have them arrange a 2 week front desk monitor to evaluate for any underlying abnormal heart rhythms. Call your cardiology office for a prompt follow up. ?? Orders? 07/31/25 13:41:00 EDT?? Prescriptions??, ??07/31/25 13:41:00 EDT?? You Need to Schedule the Following Appointments Follow Up with??Todd ALCANTARA, Kirstin Melendez When:Within 1 week: call to discuss follow up visit Where:[address] [place] [address], [address] Primary [place] [address]- Discharge Medications JOSE MANUEL TAMEZ :1955 Visit Date:07/30/2025 Medications: Please continue your medications until treatment is completed or stopped by your provider. Medications not listed below should be discontinued. Discuss any questions related to medications with your provider. What How Much When Instructions Next Dose Unchanged Acetaminophen (Tylenol Extra Strength) Oral Every 6 hours As prescribed Unchanged Citalopram (Celexa 20 mg oral tablet) 2 tab(s) Oral Daily Tomorrow 08/01 Unchanged Colchicine (colchicine 0.6 mg oral tablet) 2 tab(s) Oral Once Special Instructions: at first sign of gout flare followed by 1 tablet in 1 hour ?? As prescribed Unchanged Diazepam (diazepam 5 mg oral tablet) See instructions Special Instructions: 1 tab PO 1 hr. prior to procedure. May repeat x 1 on arrival to [facility] needed for procedural anxiety Ordering Physician: Terrell Quinteros MD ?? As prescribed Unchanged Diltiazem (diltiazem 300 mg/ 24 hours oral capsule, extended release) 1 capsule Oral Daily Tomorrow 08/01 Unchanged Furosemide (furosemide 40 mg oral tablet) 1 tab(s) Oral Daily Tomorrow 08/01 Unchanged Levothyroxine (Synthroid) 100 Microgram Daily Tomorrow 08/01 Unchanged Losartan (losartan 100 mg oral tablet) 1 tab(s) Oral Daily at Bedtime Tonight at bedtime 07/31 Unchanged Metformin 500 Milligram Oral Daily at supper Tonight at dinner 07/31 Unchanged Pantoprazole (Pantoprazole Tablet) 40 Milligram Daily Special Instructions: up to 2 tabs ?? Tomorrow 08/01 Unchanged Pravastatin 20 Milligram Oral Daily at Bedtime Tonight 07/31 Unchanged Tizanidine (tiZANidine 2 mg oral tablet) Special Instructions: TAKE 1 TABLET AT BEDTIME ORALLY ONCE DAILY 30 DAYS ?? As prescribed Unchanged Tramadol Oral As prescribed Unchanged Warfarin (Jantoven 2.5 mg oral tablet) 1 tab(s) Oral Daily Special Instructions: using three times a week ?? As prescribed Unchanged Warfarin (Jantoven 5 mg oral tablet) 1 tab(s) Oral Daily Special Instructions: using four times a week ?? As prescribed ?? What When Comments Stop Taking abiraterone (abiraterone 500 mg oral tablet) Stop Taking abiraterone (abiraterone 500 mg oral tablet) Stop Taking PredniSONE (predniSONE 5 mg oral tablet) Prescription Given During Visit No new medications prescribed at time of discharge.?? Laboratory Results Below is a partial list of the most recent Laboratory test results done prior to this discharge. You may have had other tests and procedures not included in this list. Please discuss all test resultswith your provider. Basic Metabolic Panel (07/31/2025) ???Sodium - 141 mmol/L???Potassium - 3.9 mmol/L???Chloride - 107 mmol/L???Bicarbonate Level - 23 mmol/L???Anion Gap - 11 mmol/L???Glucose Level - 98 mg/dL???BUN - 14 mg/dL???Creatinine-Blood - 1.15 mg/dL???Estimated GFR Creatinine - 69 ML/MIN/1.73 M2???Calcium - 8.9 mg/dL CBC w/ Differential (07/30/2025) ???WBC - 7.2 k/mm3???RBC - 3.91 m/mm3???Hgb - 12.0 Gm/dL???Hct - 37.6 %???MCV - 96.2 femtoliters???MCH - 30.7 pg???MCHC - 31.9 Gm/dL???Platelet Count - 247 k/mm3???RDW-SD - 48.6 femtoliters???MPV - 9.7 femtoliters???Nucleated RBC (Automated) - 0.0 #/100 WBC'S???Abs. NRBC - 0.0 k/mm3???Abs. Neut - 5.4 k/mm3???Abs. Lymph - 1.0 k/mm3???Abs. Daviess - 0.6 k/mm3???Abs. Eo - 0.1 k/mm3???Abs. Baso - 0.1 k/mm3???Neut % - 75.6 %???Lymph % - 14.1 %???Daviess % - 7.9 %???Eos % - 1.3 %???Baso % - 0.7 %???Imm Gran - 0.4 %???Abs. Imm Gran - 0.0 k/mm3 CRP (07/30/2025) ???C-Reactive Protein - 0.5 mg/dL GLUCOSE POC (07/31/2025) ???Glucose, POC - 98 mg/dL High??Sensitivity??Troponin T (07/30/2025) ???High Sensitivity Troponin (HSTnT) - 16 ng/L INR (07/31/2025) ???INR - 2.8???Protime (PT) - 27.0 seconds Lactic Acid Level (07/30/2025) ???Lactate - 2.1 mmol/L PTT (07/30/2025) ???APTT - 37.1 seconds Troponin T, High Sensitivity (07/30/2025) ???High Sensitivity Troponin (HSTnT) - 11 ng/L TSH (07/31/2025) ???TSH - 1.38 uIU/mL Allergies (NKA means No Known Allergies) Animal Dander??NASAL CONGESTION/SNEEZING Problems Active Problems??(14) Afib?? Chronic pain?? COPD (chronic obstructive pulmonary disease)?? DM (diabetes mellitus), secondary?? GERD (gastroesophageal reflux disease)?? Gout?? Hyperlipidemia?? Hypertension?? Hypothyroid?? Marijuana use, current ongoing?? Morbid obesity, actual BMI 46 as of 02/19/2018?? ENE on CPAP?? Severe obesity (BMI 35.0-39.9) with comorbidity?? Vertigo?? Education Materials Below is the list of Educational Leaflet Providered with your Discharge Instructions. Valuables and Belongings I fully understand and agree that [facility] accepts no responsibility for all my personal property including clothing, toilet articles, radios, jewelry, dentures, hearing aids, rings, money, or any other property that is in my possession or is brought to me after admission. I understand certain valuables may be placed in a hospital safe for a short period of time. I understand that the hospital is not liable for loss or damage due to accident, fire, or other natural occurrence while said property is in the safe. I accept full responsibility for any personal property that I keep with me, and will not hold the hospital responsible in case of loss or disappearance. I acknowledge that i have been encouraged to send valuables and belongings home. ?? Review of Valuable and Belonging List: With patient Date for Pt to Sign Valuables/Belongings: 07/30/25 16:53:00 ?? Other Discharge Information ? Pulmonary Rehab Status?? Pulmonary Rehab Discharge Status?? Respiratory Rate: 20 br/min ? Common Emergency Awareness Tips IS IT A [...] are strongly encouraged to quit. Please call [facility] Link at [phone] or [phone] ([phone]) or log in to [email or web address] for referrals to smoking cessation programs. ?? 988 Suicide & Crisis Lifeline is available 24/06 if you or someone you know needs to find a reason to keep living. By calling 988 you'll be connected to a skilled, trained counselor at a crisis center in your area. INPATIENT DISCHARGE INSTRUCTIONS SIGNATURE PAGE JOSE MANUEL TAMEZ Location:[facility] Registration Date and Time:07/30/2025 12:54 EDT Primary Care Physician: Todd ALCANTARA, Kirstin Melendez, Attending Physician: Leena ALCANTARA, Deshaun, I JOSE MANUEL TAMEZ, have received the above patient education materials/instructions and have verbalized understanding. If ambulance or transport services are being used I further acknowledge being given a choice of service. ?? If you need to contact me, please call me at this number: . Patient/Diamond Picker Name: Patient/Diamond Picker Signature: Relationship to Patient: Witness Name/Signature: Date: Patient Care team information Care Team Personnel Name: Araceli Parmar RN Position: [facility] RN Member Role: Primary Care Nurse Name: Radha Antony RN Position: [facility] RN Member Role: Primary Care Nurse Name: Kaylin Rashid Position: [facility] Outreach Member Role: Lifetime Consulting Physician Name: Kirstin Brooks MD Position: [facility] Physician - Primary Care Member Role: PCP Address: [address] [place] [address], [address] Primary Care and Weight Management [address] Telecom: Name: Kathya Patel RN Position: [facility] RN Member Role: Primary Care Nurse Name: Macy Banda RN Position: [facility] RN Member Role: Primary Care Nurse Name: Yu Lynn Position: [facility] Member Role: Primary Care Nurse Care Team Related Persons Name: EDDYJOE Insurance Providers Guarantor name: JOSE MANUEL TAMEZ Health Plan Information #: 1 Payer: MEDICARE B Payer Identifier: Member Number: [id number] Group Number: Subscriber Identifier: [id number] Relationship to Subscriber: self Coverage Type: NA Coverage Verification Date: NA Telecom: NA Address: Health Plan Information #: 2 Payer: MEDEX SECONDARY ONLY Payer Identifier: Member Number: [id number] Group Number: Subscriber Identifier: [id number] Relationship to Subscriber: self Coverage Type: Medicare Other Coverage Verification Date: NA Telecom: NA Address:
[2025-08-03 13:49] LABS: Prothrombin Time Whole Bld POC 30.9 sec (11.1-13.5); ~PT, ~INR - Anti Coag Clinic 2.6 (0.9-1.1)
--- NOTE | 2025-08-03 13:52 | MHC.OFFVISCO ---
Intake Intake Visit Reasons: Anticoagulation Allergies No Known Allergies Allergy (Verified 08/03/25 13:39) Medication List - Last Reconciled 08/03/25 by Donna Archer RN [CALCIUM PO] cholecalciferol (vitamin D3) (Vitamin D3) PO citalopram 20 mg PO DAILY diltiazem HCl CD 300 mg PO DAILY furosemide 40 mg PO DAILY levothyroxine 100 mcg PO DAILY losartan 100 mg PO DAILY metformin mg PO nitroglycerin 0.4 mg sublingual oxycodone mg PO pantoprazole 40 mg PO DAILY pravastatin mg PO prednisone 5 mg PO DAILY tizanidine 2 mg PO BEDTIME tramadol 50 mg PO BID PRN warfarin (Jantoven) 5 mg See Protocol PO DAILY Nursing Note INR: 2.6 in therapeutic range of 2-3 Medications and supplements reviewed No changes in health, diet, medications, or supplements, Denies any signs and symptoms of bleeding or bruising or clotting. Bleeding, bruising, clotting discussed Nutritional guidance given Dose: 5mg X 4 days and 2.5mg X 3 days (M/W/F) F/U INR: 4 weeks Patient verbalizes understanding of instructions given Coding Level of Care Code Est Patient Level 1 Diagnoses Current use of anticoagulant therapy Z79.01 Assessment & Plan Assessment & Plan (1) Current use of anticoagulant therapy: Code(s): Z79.01 - skilled nursing (current) use of anticoagulants Category: Medical
--- OUTSIDE RECORDS SUMMARY | 2025-08-03 14:49 | XMS_ITS | Clinical Summary ---
Author Organization [facility] Address [address] [place] [address] Care Team Providers Care Reproduction Machine Loader Name Role Phone Kirstin Brooks MD Primary Care Provider [phone] Allergies Active Allergy Reactions Criticality Noted Date [...] age to complete this topic Care Teams Reproduction Machine Loader Relationship Specialty Start Date End Date Kirstin Brooks MD [address] [place] [address] PCP - General Internal Medicine 03/11/19 KIM LANDAVERDE Referring Physician Orthopedic Surgery 12/26/15
--- OUTSIDE RECORDS SUMMARY | 2025-08-03 14:49 | XMS_ITS | Clinical Summary ---
Author Organization [facility] Address [address] [facility] [address] [place] [address] Phone Care Team Providers Care Metal Gauge Maker Name Role Phone Kirstin Brooks MD Primary Care Provider [phone] Krystyna Bowles MD, PhD Unavailable [phone] Kota Self MD Unavailable Audrey Bush MD, MPH Unavailable Renee Hood RN Unavailable Brina [email or web address] Shreya Foster RN Unavailable [email or web address]. Francheska Scott RN Unavailable YOLA@ [facility].[facility] Prema Lee RN Unavailable Efe [email or web address] Shivam De Jesus MD, MINDI Unavailable [phone] Allergies Active Allergy Reactions Criticality Noted Date [...] mg by mouth daily. Active Ca cit-D3-mag#11-zi fi-nnoh-bdz-bor (CALTRATE 600+D) 600 mg calcium- 800 unit-50 [...] Office [facility], [facility] [address] Tiffanie Kauffman PA-C Prostate cancer (Primary Dx); [...] 9:10 AM EDT Blood Draw Laboratory Services, [facility] [place] [address] [address] Tiffanie Kauffman PA-C [address] [facility] [place] [address] [email or web address] Audrey Bush MD, MPH [address] [place] [address] NOE@[facility] 08/17/2025 10:00 AM EDT Office Visit [facility], [facility] at [address] [address] Tiffanie Kauffman PA-C [address] [place] [address] [email or web address] Audrey Bush MD, MPH [address] [place] [address] NOE@[facility] 08/17/2025 11:00 AM EDT Infusion Infusion Therapy Services [facility] at [address] [address] Audrey Bush MD, MPH [address] [place] [address] NOE@[facility] Guera Jernigan, RN [address] [place] [address] [email or web address] Health Maintenance Due Date Last Done Comments HEMOGLOBIN A1C 1955 HEPATITIS C SCREENING 1973 PNEUMOCOCCAL VACCINES (50+ years) (1 of 2 - PCV) 1974 COLOGUARD 2000 COLONOSCOPY 2000 COLORECTAL CANCER SCREENING 2000 FIT TEST 2000 FOBT 2000 SIGMOIDOSCOPY 2000 VIRTUAL COLONOSCOPY 2000 ABDOMINAL AORTIC ANEURYSM (AAA) SCREENING 2020 DIABETIC EYE EXAM 05/09/2023 TSH LEVEL 02/11/2025 02/12/2024, 11/06/2023 INFLUENZA VACCINE (#1) 2025 , 10/10/2023, 09/03/2022, Additional history exists COVID-19 VACCINE ( season) 2025 09/15/2024, 12/06/2023, [...] this topic Medical Devices Implanted Type Area Hypo Dipper Device Identifier Shelf Expiration Date Model / Serial / Lot Kit Mixing Vertecem [employer]ement - [id number] Implanted:Qty: 1 on 03/22/2025 by Shivam De Jesus MD, MINDI at [facility] Left: Spine Thoracic [employer] 08.017 S / / [id number] Kit Mixing Verte[employer]ement - [id number] Implanted:Qty: 1 on 03/22/2025 by Shivam De Jesus MD, MINDI at [facility] Right: Spine Thoracic [employer] 08.017 S / / [id number] Procedures Procedure Name Priority Date/Time Associated Diagnosis [...] Comprehensive metabolic panel (05/18/2025 7:49 AM EDT) SODIUM 141 136 - 145 mmol/L [facility]# [id number] POTASSIUM 3.4 3.4 - 5.1 mmol/L [facility]# [id number] CHLORIDE 102 98 - 107 mmol/L [facility]# [id number] CO2 25 22 - 31 mmol/L [facility]# [id number] BUN 17 6 - 23 mg/dL [facility]# [id number] CREATININE 1.12 0.50 - 1.20 mg/dL [facility]# [id number] GLUCOSE 123(H) 70 - 100 mg/dL [facility]# [id number] ALBUMIN 3.8 3.5 - 5.2 g/dL [facility]# [id number] TOTAL PROTEIN 7.0 6.4 - 8.3 g/dL [facility]# [id number] CALCIUM 9.3 8.8 - 10.7 mg/dL [facility]# [id number] ALKALINE PHOSPHATASE 135(H) 40 - 129 U/L [facility]# [id number] TOTAL BILIRUBIN 0.5 0.2 - 1.2 mg/dL [facility]# [id number] AST 13 <41 U/L [facility]# [id number] ALT 7 <42 U/L [facility]# [id number] GLOBULIN 3.2 2.3 - 4.2 g/dL [facility]# [id number] EGFR 71 >59 mL/min/1.7 3m2 [facility]# [id number] Comment:Estimated glomerular filtration rate calculated using the CKD-EPI refit equation. ANION GAP 14 7 - 17 mmol/L [facility]# [id number] Blood 05/18/2025 7:49 AM EDT 05/18/2025 7:53 AM EDT us Audrey Bush MD, MPH LAB BLOOD ORDER NICHOLE Final Result Performing Organization Address City/[facility]/ZIP Co de Phone Number [facility]# [id number] [address] [place] [address] * PSA diagnostic (monitoring) (05/18/2025 7:49 AM EDT) Pathologist [facility] PSA Monitoring <0.02 0.00 - 4.00 ng/mL [facility]# [id number] Blood 05/18/2025 7:49 AM EDT 05/18/2025 7:53 AM EDT us Audrey Bush MD, MPH LAB BLOOD ORDER NICHOLE Final Result Performing Organization Address City/[facility] Co de Phone Number [facility]# [id number] [address] [place] [address] * (ABNORMAL) CBC and differential (05/18/2025 7:49 AM EDT) WBC 9.49 4.00 - 10.00 K/uL [facility]# [id number] RBC 4.11(L) 4.50 - 6.40 M/uL [facility]# [id number] HGB 12.5(L) 13.5 - 18.0 g/dL [facility]# [id number] HCT 38.6(L) 40.0 - 54.0 % [facility]# [id number] PLT 253 150 - 450 K/uL [facility]# [id number] MCV 93.9 80.0 - 100.0 fL [facility]# [id number] MCH 30.4 27.0 - 32.0 pg [facility]# [id number] MCHC 32.4 32.0 - 36.0 g/dL [facility]# [id number] RDW 13.8 11.5 - 14.5 % [facility]# [id number] MPV 9.4 8.4 - 12.0 fL [facility]# [id number] NRBC 0.00 0.00 /100 WBCs [facility]# [id number] ABSOLUTE NRBC 0.00 0 K/uL [facility]# [id number] DIFF METHOD Auto [facility] LIC# [id number] NEUTS 81.6(H) 48.0 - 76.0 % [facility]# [id number] LYMPHS 8.7(L) 18.0 - 41.0 % [facility]# [id number] MONOS 7.2 4.0 - 11.0 % [facility]# [id number] EOS 1.5 0.0 - 5.0 % [facility]# [id number] BASOS 0.7 0.00 - 1.50 % [facility]# [id number] % IMMATURE GRANS 0.3 0.00 - 1.00 % [facility]# [id number] ABSOLUTE NEUTS 7.74(H) 1.92 - 7.60 K/uL [facility]# [id number] ABSOLUTE LYMPHS 0.83 0.72 - 4.10 K/uL [facility]# [id number] ABSOLUTE MONOS 0.68 0.16 - 1.10 K/uL [facility]# [id number] ABSOLUTE EOS 0.14 0.00 - 0.50 K/uL [facility]# [id number] ABSOLUTE BASOS 0.07 0.00 - 0.15 K/uL [facility]# [id number] ABS IMMATURE GRANS 0.03 0.00 - 0.10 K/uL [facility]# [id number] Blood 05/18/2025 7:49 AM EDT 05/18/2025 7:53 AM EDT us Audrey Bush MD, MPH LAB BLOOD ORDER NICHOLE Final Result Performing Organization Address City/[facility] Co de Phone Number [facility]# [id number] [address] [place] [address] * (ABNORMAL) Testosterone, total (05/18/2025 7:49 AM EDT) Pathologist [facility] TESTOSTERONE <3(L) 193 - 740 ng/dL [facility]# [id number] Blood 05/18/2025 7:49 AM EDT 05/18/2025 7:53 AM EDT us Audrey Bush MD, MPH LAB BLOOD ORDER NICHOLE Final Result Performing Organization Address City/[facility] Co de Phone Number [facility]# [id number] [address] [place] [address] * TSH (02/12/2024 9:36 AM EDT) TSH 1.81 0.27 - 4.20 uIU/mL [facility]# [id number] Blood 02/12/2024 9:36 AM EDT 02/12/2024 9:39 AM EDT Sunita Braden [employer]ACING [employer] DRIVER LAB BLOOD ORDERABLES Final Result [facility]# [id number] [address] [place] [address] from Last 3 Months or Most Recently Relevant to Health Maintenance Insurance [facility] MEDEX SUPPLEMENT MEDICARE PART A & B Member Subscriber Plan / Payer (Ef fective 2013-Present) Name:Jose Manuel Tamez Member ID:[id number] Relation to Subscriber:Self Name:Jose Manuel Tamez Subscriber ID:[id number] Payer ID:[id number] Group ID:Not on file Type:Medicare Address: [facility] [facility] [address] [place] [address] [facility] MEDEX SUPPLEMENT MEDICARE PART A & B MEDICARE PART A & B [employer] MEDEX SUPPLEMENT MEDICARE PART A & B [employer] MEDEX SUPPLEMENT MEDICARE PART A & B [employer] MEDEX SUPPLEMENT MEDICARE PART A & B [employer] MEDEX SUPPLEMENT MEDICARE PART A & B [facility] MEDEX SUPPLEMENT MEDICARE PART A & B [facility] MEDEX SUPPLEMENT MEDICARE PART A & B Care Teams Metal Gauge Maker Relationship Specialty Start Date End Date Kirstin Brooks MD [address] [place] [address] [address] [place] [address] PCP - General Internal Medicine 01/03/22 Krystyna Bowles MD, PhD [address] [place] [phone] [email or web address] U Radiation Oncology 07/25/23 Kota Self MD [address] [place] [address] [email or web address] Radiation Oncology 09/03/23 Audrey Bush MD, MPH [address] [place] [address] [email or web address] Medical Oncology 09/03/23 Renee Hood RN [address] [place] [address] [email or web address] Primary Infusion Nurse 10/21/24 Shreya Solomon RN [address] [place] [address] [email or web address] Associate Infusion Nurse 10/21/24 Francheska Jacobs RN [address] [place] [address] [email or web address]@[email or web address] Associate Infusion Nurse 10/21/24 Prema Lee, RN [address] [place] [address] [email or web address]@[facility] Associate Infusion Nurse 01/19/25 Shivam De Jesus MD, MINDI [address] [place] [phone] [email or web address] Diagnostic Radiology 03/23/25 Additional Source Comments The information contained in this document represents components of the legal health record. It is not the complete legal health record.[facility]
--- OUTSIDE RECORDS SUMMARY | 2025-08-03 14:49 | XMS_ITS | Encounter Summary ---
Author Organization [facility] Address [address] [place] [address] Phone Care Team Providers Care Helper Shear Operator Name Role Phone Kirstin Brooks MD Primary Care Provider [phone] Krystyna Bowles MD, PhD Unavailable [phone] Kota Self MD Unavailable Audrey Bush MD, MPH Unavailable Renee Hood RN Unavailable Brina [email or web address] U Shreya Waldron RN Unavailable [email or web address] Francheska Scott RN Unavailable YOLA@ [facility].[email or web address] Prema Lee RN Unavailable Efe [email or web address] Shivam De Jesus MD, MINDI Unavailable [phone] Encounter Details Date Type Department Care Team (Late st Contact Info) Description 12/17/2024 Telephone [facility] [id number] Lucille Sparks [address] [place] [address] [email or web address] u Social History Tobacco Use Types Packs/Day Years Used Date Smoking Tobacco: Former Cigarettes 1 36 1 970 - 2006 Smokeless Tobacco: Never Alcohol Use Standard Drinks/Week Comments Yes 4 (1 standard drink = 0.6 oz pur e alcohol) Child or Family Care Answer Date Record ed Do you have problems with on e of the following making it difficult for you to work, study, or receive health care? No 05/09/2023 Education Answer Date Recorded Are you interested in more education? Not on eve e 03/29/2023 Are you concerned about learning? Not on file 03/29/2023 No 03/29/2023 No 03/29/2023 Food Answer Date Recorded Within the past 6 months we worried whether our food would run out before we got money to buy more. Never True 05/09/2023 Within the past 6 months the food we bought just didn't last and we didn't have enough money to get more. Never True Residential Stability Answer Date Recor ded What is your housing situation today? I have olvin sing 05/09/2023 How many times have you move d in the past 12 months? Zero (I did not move) 05/09/2023 Paying for Meds Answer Date Recorded Do you have trouble paying for medicines? No 05/09/2023 Paying Utility Bills Answer Date Record ed Do you have trouble paying your heating or elect ricity bill? No 05/09/2023 Transportation Answer Date Recorded Has the lack of transportati on kept you from medical appointments or from getting medications? No 05/09/2023 Digital Access Answer Date Recorded No 04/25/2023 No 04/25/2023 Reliable internet access at home? Not on file 04/25/2023 Device with a working camera? Not on file Sex and Gender Information Value Date Recorded Sex Assigned at Male 01/03/2022 12:23 PM EST Legal Sex Male 10:35 PM EDT Gender Identity Male 01/03/2022 12:23 PM EST Sexual Orientation Straight 01/03/2022 12 :23 PM EST documented as of this encounter Plan of Treatment Upcoming Encounters Date Type Department Care Team (Late st Contact Info) Description 08/17/2025 9:10 AM EDT Blood Draw Laboratory Services, [facility] [place] [facility] [place] [address] [address] Tiffanie Kauffman PA-C [address] [facility] [place] [address] [email or web address] Audrey Bush MD, MPH [address] [place] [address] NOE@[email or web address] 08/17/2025 10:00 AM EDT Office Visit [facility], [facility] at [address] [address] Tiffanie Kauffman PA-C [address] [place] [address] [email or web address] Audrey Bush MD, MPH [address] [place] [address] NOE@[facility] 08/17/2025 11:00 AM EDT Infusion Infusion Therapy Services [place], [facility] at [address] [address] Audrey Bush MD, MPH [address] [place] [address] NOE@[facility] Guera Jernigan, ELANA [address] [place] [address] [email or web address] documented as of this encounter Visit Diagnoses Not on filedocumented in this encounter Care Teams Helper Shear Operator Relationship Specialty Start Date End Date Kirstin Brooks MD [address] [place] [address] PCP - General Internal Medicine 01/03/22 Krystyna Bowles MD, PhD [address] [place] [address] [email or web address] U Radiation Oncology 07/25/23 Kota Self MD [address] [place] [address] [email or web address] u Radiation Oncology 09/03/23 Audrey Bush MD, MPH [address] [place] [phone] NOE@[facility] Medical Oncology 09/03/23 Renee Hood, RN [address] [place] [phone] [email or web address]@[facility] Primary Infusion Nurse 10/21/24 Shreya Waldron, ELANA [address] [place] [address] [email or web address] Associate Infusion Nurse 10/21/24 Francheska Jacobs, RN [address] [place] [address] [email or web address]@[facility] Associate Infusion Nurse 10/21/24 Prema Lee, RN [address] [place] [address] [email or web address]@[facility] Associate Infusion Nurse 01/19/25 Shivam De Jesus MD, MINDI [address] [place] [phone] [email or web address] Diagnostic Radiology 03/23/25 documented as of this encounter Additional Source Comments The information contained in this document represents components of the legal health record. It is not the complete legal health record.[facility]
--- OUTSIDE RECORDS SUMMARY | 2025-08-03 14:49 | XMS_ITS | Encounter Summary ---
Author Organization [facility] Address [address] [employer] [facility] [address] [place] [address] Phone Care Team Providers Care Associate Professor Of Forestry Name Role Phone Kirstin Brooks MD Primary Care Provider [phone] Krystyna Bowles MD, PhD Unavailable [phone] Kota Self MD Unavailable Audrey Bush MD, MPH Unavailable Renee Hood RN Unavailable Brina [email or web address] Shreya Foster RN Unavailable jose [email or web address]. Francheska Scott RN Unavailable YOLA@ [facility].[place].[facility] Prema Lee RN Unavailable Efe [email or web address].[facility] Shivam De Jesus MD, MINDI Unavailable [phone] Encounter Details Date Type Department Care Team (Late st Contact Info) Description 09/27/2023 Procedure Pass [facility] MR Imaging, [place] [address] [place] [address] Social History Tobacco Use Types Packs/Day Years [...] 9:10 AM EDT Blood Draw Laboratory Services, [facility] Cancer [place] at [address] [address] Tiffanie Kauffman PA-C 44 [facility] [place] [address] Audrey Bush MD, MPH [address] [place] [address] NOE@[facility] 08/17/2025 10:00 AM EDT Office Visit [facility], [facility] at [address] [address] Tiffanie Kauffman PA-C [address] [place] [address] [email or web address] Audrey Bush MD, MPH [address] [place] [address] NOE@[facility] 08/17/2025 11:00 AM EDT Infusion Infusion Therapy Services [facility] at [address] [address] Audrey Bush MD, MPH [address] [place] [phone] NOE@[facility] Guera Jernigan, ELANA [address] [place] [address] [email or web address] documented as of this encounter Visit Diagnoses Not on filedocumented in this encounter Additional Health Concerns Infection Onset Date Last Indicated Resolved Time COVID-19 Comment:Sx onset 09/18/23 Test 09/20/23 09/18/2023 09/19/2023 10/08/2023 1:[address] documented as of this encounter Care Teams Associate Professor Of Forestry Relationship Specialty Start Date End Date Kirstin Brooks MD [address] [place] [address] PCP - General Internal Medicine 01/03/22 Krystyna Bowles MD, PhD [address] [place] [address] [email or web address]@[facility] U Radiation Oncology 07/25/23 Kota Self MD [address] [place] [address] [email or web address] u Radiation Oncology 09/03/23 Audrey Bush MD, MPH [address] [place] [address] NOE@[facility] Medical Oncology 09/03/23 Renee Hood, RN [address] [place] [address] Nguyen@[facility] Primary Infusion Nurse 10/21/24 Shreya Waldron, ELANA [address] [place] [address] [email or web address] Associate Infusion Nurse 10/21/24 Francheska Jacobs, ELANA [address] [place] [address] [email or web address]@[facility] Associate Infusion Nurse 10/21/24 Prema Lee, ELANA [address] [place] [address] [email or web address] Associate Infusion Nurse 01/19/25 Shivam De Jesus MD, MINDI [address] [place] [phone] [email or web address] Diagnostic Radiology 03/23/25 documented as of this encounter Additional Source Comments The information contained in this document represents components of the legal health record. It is not the complete legal health record.[facility]
--- OUTSIDE RECORDS SUMMARY | 2025-08-03 14:50 | XMS_ITS | Encounter Summary ---
Author Organization [facility] Address [address] [employer] [facility] [address] [place] [address] Phone Care Team Providers Care Business Administration Professor Name Role Phone Kirstin Brooks MD Primary Care Provider [phone] Krystyna Bowles MD, PhD Unavailable [phone] Kota Self MD Unavailable Audrey Bush MD, MPH Unavailable Renee Hood RN Unavailable Brina [email or web address].[email or web address] Shreya Foster RN Unavailable jose [email or web address]. Francheska Scott RN Unavailable YOLA@ [facility].[place].[facility] Prema Lee RN Unavailable Efe [email or web address].[email or web address].[facility] Shivam De Jesus MD, MINDI Unavailable [phone] Encounter Details Date Type Department Care Team (Late st Contact Info) Description 03/04/2025 Procedure Pass [facility] Cross Sectional Interventional Radiology [address] [place] [address] Social History Tobacco Use Types Packs/Day Years [...] housing situation today? I have olvin sing 01/14/2025 How many times have you move [...] 9:10 AM EDT Blood Draw Laboratory Services, [facility] [place] [facility] [place] 300 [facility] [address] [place] [address] Tiffanie Kauffman PA-C 44 [facility] [place] [address] [email or web address] Audrey Bush MD, MPH [address] [place] [address] NOE@[email or web address] 08/17/2025 10:00 AM EDT Office Visit [facility], [facility] at [address] [address] Tiffanie Kauffman PA-C [address] [place] [address] [email or web address]@[email or web address] Audrey Bush MD, MPH [address] [place] [address] NOE@[facility] 08/17/2025 11:00 AM EDT Infusion Infusion Therapy Services [facility] at [address] [address] Audrey Bush MD, MPH [address] [place] [address] NOE@[facility] Guera Jernigan, ELANA [address] [place] [address] [email or web address] documented as of this encounter Visit Diagnoses Not on filedocumented in this encounter Care Teams Business Administration Professor Relationship Specialty Start Date End Date Kirstin Brooks MD [address] [place] [address] PCP - General Internal Medicine 01/03/22 Krystyna Bowles MD, PhD [address] [place] [address] [email or web address] U Radiation Oncology 07/25/23 Kota Self MD [address] [place] [address] [email or web address] u Radiation Oncology 09/03/23 Audrey Bush MD, MPH [address] [place] [address] NOE@[facility] Medical Oncology 09/03/23 Renee Hood, RN [address] [place] [address] Nguyen@[facility] Primary Infusion Nurse 10/21/24 Shreya Waldron, ELANA [address] [place] [address] [email or web address] Associate Infusion Nurse 10/21/24 Francheska Jacobs, ELANA [address] [place] [address] YOLA@[facility] Associate Infusion Nurse 10/21/24 Prema Lee, ELANA [address] [place] [address] [email or web address]@[email or web address] Associate Infusion Nurse 01/19/25 Shivam De Jesus MD, MINDI [address] [place] [phone] [email or web address]@[facility] Diagnostic Radiology 03/23/25 documented as of this encounter Additional Source Comments The information contained in this document represents components of the legal health record. It is not the complete legal health record.[facility]
--- OUTSIDE RECORDS SUMMARY | 2025-08-03 14:50 | XMS_ITS | Clinical Summary ---
Author Organization [facility] Address [address] [place] [address] Phone Care Team Providers Care Cinder Block Mason Name Role Phone Kirstin Brooks MD Primary Care Provider [phone] Allergies No known active allergies Medications tiZANidine [...] 08/28/2021 Heart failure with preserved ejection fraction ([facility] V24, [facility] V28) 08/28/2021 HLD (hyperlipidemia) 02/21/2021 PVC's (premature ventricular contractions) 02/21 HTN (hypertension) 12/29/2020 PAF (paroxysmal atrial fibri llation) ([facility] V24, [facility] V28) 12/29/2020 Type II or unspecified type diabetes mellitus with ketoacidosis, uncontrolled(250.12) ([facility] V24, [facility] V28) 12/29/2020 Encounters Date Type Department Care Team Description 06/09/2025 2:50 PM EDT - 06/09/2025 11:59 PM EDT Hospital Encounter [facility] Xray [address] [place] [address] Pain in thoracic spine Discharge Disposition: Home or Self Care 06/08/2025 Telephone Pulmonolgy - [place] [address] [place] [address] Irma Patterson MD from Last 3 Months Immunizations Name Administration Dates Next Due Pfizer SARS-CoV-2 COVID-19, mRNA, LNP-S, preservative free 01/12/2021,12/22/2020 Surgical History Surgery Date Site/Laterality Comments GASTRIC BAND ADJUSTMENT and removal CARDIOVERSION CARDIAC ABLATION CERVICAL FUSION Medical History Medical History Date Comments Hypertension Hyperlipidemia Diabetes mellitus ([facility] V24, [facility] V28) GERD (gastroesophageal reflux disease) Atrial fibrillation ([facility] V24, [facility] V28) Sleep apnea COPD (chronic obstructive pulmonary disease) ([facility] V24, [facility] V28) Asthma Prostate cancer ([facility] V24, [facility] V28) Social History Tobacco Use Types Packs/Day [...] Description 08/24/2025 10:35 AM EDT Office Visit [facility] [address] [place] [phone] Luis Montoya MD [address] [place] [address] Dr [address] [place] [address] 02/23/2026 3:00 PM EDT Office Visit [facility] [address] [place] [address] Irma Patterson MD [address] [place] [phone] Health Maintenance Due Date Last Done Comments Diabetes: Annual Foot Exam 1965 Diabetes: Annual Retina Eye Exam 1965 Pneumococcal Vaccine: 50+ Years (1 of 2 - PCV) 1974 Abdominal Aortic Aneurysm (AAA) Screen 11/04/2022 Hepatitis C Screening 11/04/2022 Medicare Annual Wellness Visit 11/04/2022 Social Influencers of Health Screening 11/04/2022 Depression Screening 12/02/2024 COVID-19 Vaccine (8 - Pfizer risk season) 2025 09/15/2024, 12/06/2023, 09/03/2022, Additional history exists Influenza Vaccine (#1) 2025 , 10/10/2023, 09/03/2022, Additional history exists Falls Risk Assessment 10/14/2025 10/14/2024 Diabetes: Blood Sugar Control Test (HGBA1C) 01/29/2026 07/29/2025 Diabetes: Annual Urine Albumin-Creatinine Ratio (uACR) 07/29/2026 07/29/2025 Diabetes: Annual GFR (Glomerular Filtration Rate) 07/29/2026 07/29/2025, 05/18/2025, 01/19/2025, Additional history exists Hypertension/CHF/CAD Annual BMP Blood Test 07/29/2026 07/29/2025, 05/18/2025, 01/19/2025, Additional history exists DTaP,Tdap,and Td Vaccines (2 - Td or Tdap) 03/05/2028 03/05/2018 Colorectal Cancer Screening: Colonoscopy 10/14/2029 10/14/2024 Cholesterol Screening (Lipid Panel) 07/29/2030 07/29/2025 RSV Immunization Adult Patients Completed 10/29/2023 Zoster [...] Diagnosis Comments CBC WITH AUTO DIFFERENTIAL Routine 07/29/2025 9:36 AM EDT Diabetes mellitus (CMS/HCC V24, CMS/HCC V28) Hyperlipemia Routine general medical examination at a health care facility CARTER URINE CULTURE TUBE Routine 07/29/2025 9:36 AM EDT Diabetes mellitus (CMS/HCC V24, CMS/HCC V28) Hyperlipemia Routine general medical examination at a health care facility URINALYSIS WITH REFLEX MICROSCOPIC AND CULTURE Routine 07/29/2025 9:36 AM EDT Diabetes mellitus (CMS/HCC V24, CMS/HCC V28) Hyperlipemia Routine general medical examination at a health care facility MICROALBUMIN CREATININE URINE RATIO Routine 07/29/2025 9:36 AM EDT Diabetes mellitus (CMS/HCC V24, CMS/HCC V28) Hyperlipemia Routine general medical examination at a health care facility CBC AND DIFFERENTIAL Routine 07/29/2025 9:36 AM EDT Diabetes mellitus (CMS/HCC V24, CMS/HCC V28) Hyperlipemia Routine general medical examination at a health care facility COMPREHENSIVE METABOLIC PANEL Routine 07/29/2025 9:36 AM EDT Diabetes mellitus (CMS/HCC V24, CMS/HCC V28) Hyperlipemia Routine general medical examination at a health care facility LIPID PANEL WITH REFLEX TO DIRECT LDL Routine 07/29/2025 9:36 AM EDT Diabetes mellitus ([facility] V24, [facility] V28) Hyperlipemia Routine general medical examination at a [facility] facility HEMOGLOBIN A1C Routine 07/29/2025 9:36 AM EDT Diabetes mellitus ([facility] V24, [facility] V28) Hyperlipemia Routine general medical examination at a [facility] facility URINALYSIS WITH REFLEX MICROSCOPIC AND CULTURE Routine 07/29/2025 9:36 AM EDT Diabetes mellitus ([facility] V24, [facility] V28) Hyperlipemia Routine general medical examination at a [facility] care facility XR THORACIC SPINE 2 VIEWS Routine 06/09/2025 2:59 PM EDT Pain in thoracic spine COLONOSCOPY Routine 10/14/2024 9:58 AM EST Hemorrhage of rectum and anus from Last 3 Months or Most Recently Relevant to Health Maintenance Results * (ABNORMAL) Urinalysis with reflex microscopic and culture (07/29/2025 9:36 AM EDT) Specific [place] Urine 1.008 1.003 - 1.030 LAB URINALYSIS - AUTOMATED METHOD 07/29/2025 11:[address] [facility] pH, Urine 7.0 5.0 - 8.0 pH LAB URINALYSIS - AUTOMATED METHOD 07/29/2025 11:[address] [facility] Leukocytes, Urine Negative Negative LAB URINALYSIS - AUTOMATED METHOD 07/29/2025 11:[address] [facility] Nitrite, Urine Negative Negative LAB URINALYSIS - AUTOMATED METHOD 07/29/2025 11:[address] [facility] Protein, Urine Negative <=Trace mg/dL LAB URINALYSIS - AUTOMATED METHOD 07/29/2025 11:[address] [facility] Glucose, Urine Negative Negative mg/dL LAB URINALYSIS - AUTOMATED METHOD 07/29/2025 11:[address] [facility] Ketones, Urine Negative Negative mg/dL LAB URINALYSIS - AUTOMATED METHOD 07/29/2025 11:[address] [facility] Urobilinogen, Urine 0.2 0.2 - 1.0 mg/dL LAB URINALYSIS - AUTOMATED METHOD 07/29/2025 11:[address] [facility] Bilirubin, Urine Negative Negative LAB URINALYSIS - AUTOMATED METHOD 07/29/2025 11:[address] [facility] Blood, Urine Trace(A) Negative LAB URINALYSIS - AUTOMATED METHOD 07/29/2025 11:[address] [facility] RBC, Urine 3.7 0 - 4 /HPF LAB URINALYSIS - AUTOMATED METHOD 07/29/2025 11:[address] [facility] WBC, Urine 0.1 0 - 4 /HPF LAB URINALYSIS - AUTOMATED METHOD 07/29/2025 11:[address] [facility] Squamous Epithelial, Urine 7 0 - 60 /LPF LAB URINALYSIS - AUTOMATED METHOD 07/29/2025 11:[address] [facility] Bacteria, Urine Negative Negative /HPF LAB URINALYSIS - AUTOMATED METHOD 07/29/2025 11:[address] [facility] Hyaline Casts, Urine 0.0 0 - 3 /LPF LAB URINALYSIS - AUTOMATED METHOD 07/29/2025 11:[address] [facility] Urine Urine specimen obtained by clean catch procedure / Unknown Non-blood Collection / Unknown 07/29/2025 9:36 AM EDT 07/29/2025 11:31 AM EDT us Samanta MONTESINOS LAB URINE ORDERABLES Final Resul t [facility] [address] [place] [address], [place] [phone] * Carter urine culture tube (07/29/2025 9:36 AM EDT) Pathologist [facility] Extra Tube Hold for add-ons. 07/29/2025 1:[address] [facility] Comment:Auto resulted. Urine Urine specimen obtained by clean catch procedure / Unknown Non-blood Collection / Unknown 07/29/2025 9:36 AM EDT 07/29/2025 11:30 AM EDT us Samanta MONTESINOS LAB URINE ORDERABLES Final Resul t [facility] [address] [place] [address], [place] [phone] * Lipid panel with reflex to direct LDL (07/29/2025 9:36 AM EDT) [facility] Cholesterol 124 0 - 200 mg/dL LAB CHEMISTRY METHOD 07/29/2025 10:[address] [facility] Triglycerides 125 0 - 150 mg/dL LAB CHEMISTRY METHOD 07/29/2025 10:[address] [facility] HDL 44 >=40 mg/dL LAB CHEMISTRY METHOD 07/29/2025 10:[address] [facility] LDL Calculated 55 0 - 100 mg/dL LAB CHEMISTRY METHOD 07/29/2025 10:[address] [facility] Comment:Estimated LDL Calcul ated using equation: Total cholesterol - HDL cholesterol - (Triglycerides/5) VLDL Cholesterol Yoshi 25 mg/dL LAB CHEMISTRY METHOD 07/29/2025 10:[address] [facility] Non HDL Chol. (LDL+VLDL) 80 <145 mg/dL LAB CHEMISTRY METHOD 07/29/2025 10:[address] [facility] Chol/HDL Ratio 2.8 0.0 - 4.4 LAB CHEMISTRY METHOD 07/29/2025 10:[address] [facility] Blood Venous blood specimen / Unknown Venipuncture / Unknown 07/29/2025 9:36 AM EDT 07/29/2025 9:48 AM EDT us Samanta MONTESINOS LAB BLOOD ORDERABLES Final Resul t [facility] [address] [place] [address], * (ABNORMAL) CBC auto differential (07/29/2025 9:36 AM EDT) WBC 7.1 4.8 - 10.8 K/mcL LAB HEMETOLOGY METHOD 07/29/2025 10:[address] [facility] RBC 4.30(L) 4.50 - 5.50 M/mcL LAB HEMETOLOGY METHOD 07/29/2025 10:[address] [facility] Hemoglobin 12.7(L) 13.5 - 17.5 g/dL LAB HEMETOLOGY METHOD 07/29/2025 10:[address] [facility] Hematocrit 40.6(L) 42.0 - 54.0 % LAB HEMETOLOGY METHOD 07/29/2025 10:[address] [facility] MCV 95.1 79.0 - 98.0 FL LAB HEMETOLOGY METHOD 07/29/2025 10:[address] [facility] MCH 29.7 27.0 - 32.0 pcg LAB HEMETOLOGY METHOD 07/29/2025 10:[address] [facility] MCHC 31.3(L) 32.0 - 37.0 g/dL LAB HEMETOLOGY METHOD 07/29/2025 10:[address] [facility] RDW 14.0 11.0 - 15.0 % LAB HEMETOLOGY METHOD 07/29/2025 10:[address] [facility] Platelets 251 130 - 400 K/mcL LAB HEMETOLOGY METHOD 07/29/2025 10:[address] [facility] MPV 9.6 7.0 - 11.0 FL LAB HEMETOLOGY METHOD 07/29/2025 10:[address] [facility] NRBC 0.0 <1.0 % LAB HEMETOLOGY METHOD 07/29/2025 10:[address] [facility] NRBC Absolute 0.00 <0.10 K/mcL LAB HEMETOLOGY METHOD 07/29/2025 10:[address] [facility] Neutrophils Relative 72.3 % LAB HEMETOLOGY METHOD 07/29/2025 10:[address] [facility] Lymphocytes Relative 15.0 % LAB HEMETOLOGY METHOD 07/29/2025 10:[address] [facility] Monocytes Relative 8.7 % LAB HEMETOLOGY METHOD 07/29/2025 10:[address] [facility] Eosinophils Relative 2.5 % LAB HEMETOLOGY METHOD 07/29/2025 10:[address] [facility] Basophils Relative 1.1 % LAB HEMETOLOGY METHOD 07/29/2025 10:[address] [facility] Immature Granulocytes Relative 0.4 % LAB HEMETOLOGY METHOD 07/29/2025 10:[address] [facility] Neutrophils Absolute 5.12 1.50 - 7.00 K/mcL LAB HEMETOLOGY METHOD 07/29/2025 10:[address] [facility] Lymphocytes Absolute 1.06 1.00 - 5.00 K/mcL LAB HEMETOLOGY METHOD 07/29/2025 10:[address] [facility] Monocytes Absolute 0.62 0.20 - 1.00 K/mcL LAB HEMETOLOGY METHOD 07/29/2025 10:[address] [facility] Eosinophils Absolute 0.18 0.00 - 0.50 K/[facility] LAB HEMETOLOGY METHOD 07/29/2025 10:[address] [facility] Basophils Absolute 0.08 0.00 - 0.20 K/[facility] LAB HEMETOLOGY METHOD 07/29/2025 10:[address] [facility] Immature Granulocytes Absolute 0.03 0.00 - 0.03 K/[facility] LAB HEMETOLOGY METHOD 07/29/2025 10:[address] [facility] Blood Venous blood specimen / Unknown Venipuncture / Unknown 07/29/2025 9:36 AM EDT 07/29/2025 9:48 AM EDT us Samanta MONTESINOS LAB BLOOD ORDERABLES Final Resul t [facility] [address] [place] [address], [place] [phone] * (ABNORMAL) Microalbumin creatinine urine ratio (07/29/2025 9:36 AM EDT) Creatinine, Urine 42.0 mg/dL LAB CHEMISTRY METHOD 07/29/2025 2:[address] [facility] Microalb, Ur 30.4(H) 0.0 - 29.0 mg/L LAB CHEMISTRY METHOD 07/29/2025 2:[address] [facility] Microalb/Crea t Ratio 72(H) <30 mg/g creat LAB CHEMISTRY METHOD 07/29/2025 2:[address] [facility] Urine Urine specimen obtained by clean catch procedure / Unknown Non-blood Collection / Unknown 07/29/2025 9:36 AM EDT 07/29/2025 11:31 AM EDT us Samanta MONTESINOS LAB URINE ORDERABLES Final Resul t Performing Organization Address [facility] Co de Phone Number [facility] [address] [place] [address], * Hemoglobin A1c (07/29/2025 9:36 AM EDT) [facility] Hemoglobin A1C 6.0 <6.5 % LAB CHEMISTRY METHOD 07/29/2025 1:[address] [facility] Mean Bld Glu Estim. 126 mg/dL LAB CHEMISTRY METHOD 07/29/2025 1:[address] [facility] Blood Venous blood specimen / Unknown Venipuncture / Unknown 07/29/2025 9:36 AM EDT 07/29/2025 9:48 AM EDT Samanta MONTESINOS LAB BLOOD ORDERABLES Final Resul t Performing Organization Address [facility] Co de Phone Number [facility] [address] [place] [address], [place] [phone] * (ABNORMAL) Comprehensive metabolic panel (07/29/2025 9:36 AM EDT) [facility] Sodium 142 133 - 145 mmol/L LAB CHEMISTRY METHOD 07/29/2025 10:[address] [facility] Potassium 4.3 3.5 - 5.5 mmol/L LAB CHEMISTRY METHOD 07/29/2025 10:[address] [facility] Chloride 107 96 - 110 mmol/L LAB CHEMISTRY METHOD 07/29/2025 10:[address] [facility] CO2 28 21 - 32 mmol/L LAB CHEMISTRY METHOD 07/29/2025 10:[address] [facility] Anion Gap 7 3 - 11 LAB CHEMISTRY METHOD 07/29/2025 10:[address] [facility] Glucose 110(H) 70 - 100 mg/dL LAB CHEMISTRY METHOD 07/29/2025 10:[address] [facility] BUN 11 5 - 25 mg/dL LAB CHEMISTRY METHOD 07/29/2025 10:[address] [facility] Creatinine 1.26 0.70 - 1.30 mg/dL LAB CHEMISTRY METHOD 07/29/2025 10:[address] [facility] eGFR 62 >=60 mL/min/1. 73m2 LAB CHEMISTRY METHOD 07/29/2025 10:[address] [facility] Comment:Calculation based on the Chronic Kidney Disease Epidemiology Collaboration (CKD-EPI) equation refit without adjustment for race. BUN/Creatinine Ratio 8.7 LAB CHEMISTRY METHOD 07/29/2025 10:[address] [facility] Calcium 9.5 8.5 - 10.5 mg/dL LAB CHEMISTRY METHOD 07/29/2025 10:[address] [facility] AST (SGOT) 17 10 - 42 unit/L LAB CHEMISTRY METHOD 07/29/2025 10:[address] [facility] ALT (SGPT) 17 10 - 60 unit/L LAB CHEMISTRY METHOD 07/29/2025 10:[address] [facility] Alkaline Phosphatase 94 42 - 121 unit/L LAB CHEMISTRY METHOD 07/29/2025 10:[address] [facility] Total Protein 7.0 6.0 - 8.0 g/dL LAB CHEMISTRY METHOD 07/29/2025 10:[address] [facility] Albumin 3.9 3.2 - 5.0 g/dL LAB CHEMISTRY METHOD 07/29/2025 10:[address] [facility] Total Bilirubin 0.6 0.0 - 1.4 mg/dL LAB CHEMISTRY METHOD 07/29/2025 10:[address] [facility] Blood Venous blood specimen / Unknown Venipuncture / Unknown 07/29/2025 9:36 AM EDT 07/29/2025 9:48 AM EDT Samanta MONTESINOS LAB BLOOD ORDERABLES Final Resul t [facility] [address] [place] [address], * XR Thoracic Spine 2 Views (06/09/2025 [...] the mid and lower thoracic spine. Code 25963 -------- FINAL REPORT -------- Dictated By: Gregory Reyes Dictated Date: 06/10/2025 07:48 ET Assigned Physician: Gregory Reyes Reviewed and Electronically Signed By: Gregory Reyes Signed Date: 06/10/2025 07:50 ET Workstation ID: [id number] Transcribed By: Self Edit Transcribed Date: 06/10/2025 [...] the mid and lower thoracic spine. Code 50740 -------- FINAL REPORT -------- Dictated By: Gregory Reyes Dictated Date: 06/10/2025 07:48 ET Assigned Physician: Gregory Reyes Reviewed and Electronically Signed By: Gregory Reyes Signed Date: 06/10/2025 07:50 ET Workstation ID: [id number] Transcribed By: Self Edit Transcribed Date: 06/10/2025 07:48 ET Mary MONTESINOS IMG XR PROCEDURES Final Result * COLONOSCOPY Anesthesia - MAC; [facility] [...] 5 days. Narrative 10/14/2024 10:01 AM EST [facility] GI Patient Name: Jose Manuel Kam Procedure [...] verified by the physician, the nurse, the car inspection and repair manager and the biomass technician in the pre-procedure area in the [...] was minimal. Procedure Code(s): --- Professional --- 99930, 59, Colonoscopy, flexible; with control of bleeding, any method 99171, Colonoscopy, flexible; with removal of tumor(s), polyp(s), or other lesion(s) by snare technique Diagnosis Code(s): --- Professional --- D12.3, Benign neoplasm of transverse colon (hepatic flexure or splenic flexure) K92.1, Melena (includes Hematochezia) CPT copyright 2020 [employer]. All rights reserved. The codes documented in this report are preliminary and upon manager home improvement review may be revised to meet current compliance requirements. Garcia Vigil MD 10/14/2024 10:01:37 AM This report has been signed electronically.Garcia Vigil MD Number of Addenda: 0 Note Initiated On: 10/14/2024 9:30 AM Scope Withdrawal Time: 0 hours 17 minutes 21 seconds Scope In: 9:36:33 AM Scope Out: 9:57:43 AM Endoscopy Department at [facility] - [address] [place] [id number] Procedure Note Garcia Vigil MD - 10/14/2024 [facility] GI Patient Name: Jose Manuel Kam Procedure [...] the physician, the nurse, theanesthetist and the biomass technician in the pre-procedure area in the [...] loss wasminimal. Procedure Code(s): --- Professional --- 06684, 59, Colonoscopy, flexible; with control of bleeding, any method 21738, Colonoscopy, flexible; with removal of tumor(s), polyp(s), or other lesion(s) by snare technique Diagnosis Code(s): --- Professional --- D12.3, Benign neoplasm of transverse colon (hepatic flexure or splenic flexure) K92.1, Melena (includes Hematochezia) CPT copyright 2020 [employer]. All rights reserved. The codes documented in this report are preliminary and upon manager home improvement reviewmay be revised to meet current compliance requirements. Garcia Vigil MD 10/14/2024 10:01:37 AM This report has been signed electronically.Garcia Vigil MD Number of Addenda: 0 Note Initiated On: 10/14/2024 9:30 AM Scope Withdrawal Time: 0 hours 17 minutes 21 seconds Scope In: 9:36:33 AM Scope Out: 9:57:43 AM Endoscopy Department at [facility] - [address] [place] [phone] IMPRESSION: - Three 2 to 6 mm polyps in the transverse colon, removed with a cold snare. Resected andretrieved. - Diverticulosis in the sigmoid colon, in the descending colon and in the ascending colon. - Internal hemorrhoids. Recommendation: - Discharge patient to home. - Resume Coumadin (warfarin) at prior dose in 5days. us Garcia Vigil MD GI~PROCEDURE ORDERABLES Fin al Result from Last 3 Months or Most Recently Relevant to [place] [id number] MEDIC[address] [facility] [place] [address] Care Teams Cinder Block Mason Relationship Specialty Start Date End Date Kirstin Brooks MD [address] [place] [address] [place] [id number] PCP - General Internal Medicine 01/11/25
--- OUTSIDE RECORDS SUMMARY | 2025-08-03 14:50 | XMS_ITS | Encounter Summary ---
Author Organization [facility] Address [address] [employer] [facility] [address] [place] [address] Phone Care Team Providers Care Meter Calibrator Name Role Phone Kirstin Brooks MD Primary Care Provider [phone] Self-Referred, Patient Unavailable Unavailab Krystyna Kaiser MD, PhD Unavailable [phone] Kota Self MD Unavailable Audrey Bush MD , MPH Unavailable Renee Hood RN Unavailable Brina [email or web address] Shreya Solomon RN Unavailable [email or web address] Francheska Jacobs RN Unavailable YOLA@ [facility].[place].[facility] Prema Lee RN Unavailable Efe [email or web address] Shivam De Jesus MD, MINDI Unavailable [phone] Encounter Details Date Type Department Care Team (Late st Contact Info) Description 05/10/2023 Procedure Pass [facility] [place] [facility] [place], [place] [address] [facility] 4th [place] [address] Social History Tobacco Use Types Packs/Day Years [...] PM EST documented as of this encounter Last Filed Vital Signs Vital Sign Reading Time Taken Comments Blood Pressure - - Pulse - - Temperature - - Respiratory Rate - - Oxygen Saturation - - Inhaled Oxygen Concentration - - Weight 130.1 kg (286 lb 13.1 oz) 2022 10:57 AM EDT Height - - Body Mass Index 42.48 05/09/2023 2:02 PM EDT documented in this encounter Plan of Treatment Upcoming Encounters Date Type Department Care Team (Late st Contact Info) Description 08/17/2025 9:10 AM EDT Blood Draw Laboratory Services, [facility] at [address] [address] Tiffanie Kauffman PA-C [address] [place] [address] [email or web address] Audrey Bush MD, MPH [address] [place] [id number] [email or web address]@[email or web address] 08/17/2025 10:00 AM EDT Office Visit [facility], [facility] at [address] [address] Tiffanie Kauffman PA-C [address] [place] [address] [email or web address] Audrey Bush MD, MPH [address] [place] [id number] NOE[email or web address] 08/17/2025 11:00 AM EDT Infusion Infusion Therapy Services [facility] at [address] [address] Audrey Bush MD, MPH [address] [place] [phone] NOE@[facility] Guera Jernigan, RN [address] [place] [address] [email or web address] documented as of this encounter Visit Diagnoses Not on filedocumented in this encounter Additional Health Concerns Infection Onset Date Last Indicated Resolved Time COVID-19 Comment:Sx onset 09/18/23 Test 09/20/23 09/18/2023 09/19/2023 10/08/2023 1:[address] documented as of this encounter Care Teams Meter Calibrator Relationship Specialty Start Date End Date Kirstin Brooks MD [address] [place] [id number] PCP - General Internal Medicine 01/03/22 Self-Referred, Patient Referring Physician 04/18/23 09/02/23 Krystyna Bowles MD, PhD [address] [place] [phone] [email or web address] U Radiation Oncology 07/25/23 Kota Self MD [address] [place] [phone] [email or web address] Radiation Oncology 09/03/23 Audrey Bush MD, MPH [address] [place] [phone] [email or web address]. [facility] Medical Oncology 09/03/23 Renee Hood, ELANA [address] [place] [address] [email or web address] Primary Infusion Nurse 10/21/24 Shreya Solomon, ELANA [address] [place] [address] [email or web address] Associate Infusion Nurse 10/21/24 Francheska Jacobs, ELANA [address] [place] [address] [email or web address] Associate Infusion Nurse 10/21/24 Prema Lee, ELANA [address] [place] [address] [email or web address] CRISTIANO.[facility] Associate Infusion Nurse 01/19/25 Shivam De Jesus MD, MINDI [address] [place] [phone] [email or web address] Diagnostic Radiology 03/23/25 documented as of this encounter Additional Source Comments The information contained in this document represents components of the legal health record. It is not the complete legal health record.[facility]
--- OUTSIDE RECORDS SUMMARY | 2025-08-03 14:50 | XMS_ITS ---
Author Organization [facility] Address [address] [facility] [address] [place] [address] Phone Care Team Providers Care Trommel Tender Name Role Phone Kirstin Brooks MD Primary Care Provider [phone] Krystyna Bowles MD, PhD Unavailable [phone] Kota Self MD Unavailable Audrey Bush MD, MPH Unavailable Renee Hood RN Unavailable Brina [email or web address]. Shreya Foster RN Unavailable [email or web address] 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 Secondary diabetes mellitus 05/09/2023 06/0 07/2023 Gastroesophageal reflux disease 05/09/2023 05/09/2023 Spinal stenosis, site unspecified 05/09/2023 05/09/2023 Prostate cancer 05/09/2023 Hypothyroid 05/09/2023 05/09/2023 Essential (primary) hypertension 04/23/2022 Osteoarthritis (arthritis due to wear and tear o f joints) 01/26/2016 05/09/2023 HLD (hyperlipidemia) 01/26/2016 05/09/2023 ENE on CPAP 01/26/2016 05/09/2023 COPD (chronic obstructive pulmonary disease) 05/09/2023 Atrial fibrillation, controlled 04/25/2006 05/09/2023 Current Treatment and Therapy Plans ABIRATERONE* Plan Start Date:05/29/2023 Plan Provider:Audrey Bush MD, MPH Linked Problems Prostate cancer Treatment Medications Current Day (Day 1 , Cycle 2 - Planned for 06/26/2023) Next Day (Day 1, Cycle 3 - Planned for 07/24/2023) abiraterone (ZYTIGA) abiraterone (ZYTIGA) 250 mg Tab abiraterone (ZYTIGA) 250 mg Tab LEUPROLIDE ACETATE 3 MONTH (LUPRON DEPOT 3 MONTH)* Plan Start Date:05/22/2023 Plan Provider:Audrey Bush MD, MPH Linked Problems Prostate cancer Treatment Medications leuprolide (3 month) (LUPRON DEPOT 3 MONTH) Other Current Plans ZOLEDRONIC ACID (RECLAST)* Plan Start Date:05/25/2025 Plan Provider:Tiffanie Kauffman PA-C Linked Problems Osteoporosis, unspecified os teoporosis type, unspecified pathological fracture presence Treatment Medications No medications scheduled. Past Treatment and Therapy Plans No past plan information found. Radiation Treatments * Course C2 09/12/2023 - 09/16/2023 Treatment Period Energy Fraction Dose Fractions Total Dose Plans Planned A1_T8 09/12/2023 - 09/16/2023 1,000 cGy 3,000 cGy Reference Points Delivered A_T8 09/12/2023 - 09/16/2023 3,000 cGy * Course C1 08/01/2023 - 2023 Treatment Period Energy Fraction Dose Fractions Total Dose Plans Planned [id number]^VMAT Prostate RT Intent Revision 0 08/01/2023 - 2023 250 cGy 7,000 cGy Reference Points Delivered A1_Pelvis Prost 08/01/2023 - 2023 7,000 cGy A_Pelvis Prost 08/01/2023 - 2023 7,000 cGy
== END 2025-08-03 14:49 | disposition home or self-care (01) ==
LOC: HO.ACS 13:32
PROVIDERS: PCP Internal Medicine; Visit Provider Internal Medicine Medical Oncology
DX: Z79.01 Long term (current) use of anticoagulants (principal)

== ENCOUNTER → 2025-08-03 13:32 | Outpatient (BNVA) | payer MEDICARE, SELFPAY | PROVIDERS: PCP Internal Medicine; Visit Provider Internal Medicine Medical Oncology | DX: Z51.81 Encounter for therapeutic drug level monitoring (principal); Z79.01 Long term (current) use of anticoagulants | CPT/HCPCS: 85610; 99211 ==

== ENCOUNTER 2025-09-02 13:41 | Outpatient (AMB) | payer MEDICARE, SELFPAY ==
[2025-09-02 13:48] LABS: Prothrombin Time Whole Bld POC 32.6 sec (11.1-13.5); ~PT, ~INR - Anti Coag Clinic 2.7 (0.9-1.1)
--- NOTE | 2025-09-02 13:49 | MHC.OFFVISCO ---
Intake Intake Visit Reasons: Anticoagulation Allergies No Known Allergies Allergy (Verified 09/02/25 13:41) Medication List - Last Reconciled 09/02/25 by Donna Archer RN [CALCIUM PO] cholecalciferol (vitamin D3) (Vitamin D3) PO citalopram 20 mg PO DAILY diltiazem HCl CD 300 mg PO DAILY furosemide 40 mg PO DAILY levothyroxine 100 mcg PO DAILY losartan 100 mg PO DAILY metformin mg PO nitroglycerin 0.4 mg sublingual oxycodone mg PO pantoprazole 40 mg PO DAILY pravastatin mg PO prednisone 5 mg PO DAILY tizanidine 2 mg PO BEDTIME tramadol 50 mg PO BID PRN warfarin (Jantoven) 5 mg See Protocol PO DAILY Nursing Note INR: 2.7 in therapeutic range 2-3 Medications and supplements reviewed No changes in diet, medications, or supplements, Pt states he has to have 2 teeth extracted. He doesn't have an appointment for that yet but will call [facility] when he does. Denies any signs and symptoms of bleeding or bruising or clotting. Bleeding, bruising, clotting discussed Nutritional guidance given Dose: 5mg X 4 days and 2.5mg X 3 days (M/W/F) F/U INR: 2 weeks Patient verbalizes understanding of instructions given Coding Level of Care Code Est Patient Level 1 Diagnoses Current use of anticoagulant therapy Z79.01 Results AMB INR Fingerstick AMB INR Fingerstick 2.7 Last Edit by Donna Archer RN on 09/02/25 13:47 interface delay Assessment & Plan Assessment & Plan (1) Current use of anticoagulant therapy: Code(s): Z79.01 - residential (current) use of anticoagulants Category: Medical
--- OUTSIDE RECORDS SUMMARY | 2025-09-02 15:11 | XMS_ITS | Encounter Summary ---
Author Organization [facility] Address [address] [place] [address] Phone Care Team Providers Care Jewelry Consultant Name Role Phone Kirstin Brooks MD Primary Care Provider [phone] Krystyna Bowles MD, PhD Unavailable [phone] Kota Self MD Unavailable Audrey Bush MD, MPH Unavailable Renee Hood RN Unavailable Brina [email or web address] U Shreya Waldron RN Unavailable [email or web address] Francheska Scott RN Unavailable [email or web address]@ [email or web address] Prema Lee RN Unavailable Efe [email or web address] Shivam De Jesus MD, MINDI Unavailable [phone] Encounter Details Date Type Department Care Team (Late st Contact Info) Description 12/17/2024 Telephone [facility] [address] Lucille [email or web address] u Social History Tobacco Use Types Packs/Day [...] Care Team (Late st Contact Info) Description 09/07/2025 9:30 AM EDT Office Visit Adult Palliative Care, [facility] [address] [place] [address], 11th [place] [address] Vibha Chavarria MD, MS [address] [facility], Pall[facility] Medicine JF [address] [place] [address] [email or web address] 11/23/2025 1:40 PM EST Blood Draw Laboratory Services, [facility] [place] [facility] [place] [address] [address] Audrey Bush MD, MPH [address] [place] [phone] [email or web address] documented as of this encounter Visit Diagnoses Not on filedocumented in this encounter Care Teams Jewelry Consultant Relationship Specialty Start Date End Date Kirstin Brooks MD [address] [place] [address] PCP - General Internal Medicine 01/03/22 Krystyna Bowles MD, PhD [address] [place] [phone] [email or web address] U Radiation Oncology 07/25/23 Kota Self MD [address] [place] [phone] [email or web address] Radiation Oncology 09/03/23 Audrey Bush MD, MPH [address] [place] [phone] [email or web address] Medical Oncology 09/03/23 Renee Hood RN [address] [place] [phone] [email or web address] Primary Infusion Nurse 10/21/24 Shreya Waldron RN [address] [place] [address] [email or web address] Associate Infusion Nurse 10/21/24 Francheska Jacobs, ELANA [address] [place] [address] [email or web address]@[email or web address] Associate Infusion Nurse 10/21/24 Prema Lee RN [address] [place] [address] [email or web address] Associate Infusion Nurse 01/19/25 Shivam De Jesus MD, MINDI [address] [place] [phone] [email or web address] Diagnostic Radiology 03/23/25 documented as of this encounter Additional Source Comments The information contained in this document represents components of the legal health record. It is not the complete legal health record.[facility]
--- OUTSIDE RECORDS SUMMARY | 2025-09-02 15:11 | XMS_ITS | Clinical Summary ---
Author Organization [facility] Address [address] [facility] [address] [place] [address] Phone Care Team Providers Care Manager Content Name Role Phone Kirstin Brooks MD Primary Care Provider [phone] Krystyna Bowles MD, PhD Unavailable [phone] Kota Self MD Unavailable Audrey Bush MD, MPH Unavailable Renee Hood RN Unavailable [email or web address] Shreya Foster RN Unavailable [email or web address] Francheska Scott RN Unavailable [email or web address] Prema Lee RN Unavailable Efe [email or web address] Shivam De Jesus MD, MINDI Unavailable [phone] Allergies Active Allergy Reactions Criticality Noted Date [...] mg by mouth daily. Active Ca cit-D3-mag#11-zi hc-[id number]-uub-bor (CALTRATE 600+D) 600 mg calcium- 800 unit-50 [...] Encounters Date Type Department Care Team Description 09/02/2025 Orders Only [facility] [place] [address] [place] [address], [address] [place] [address] Tiffanie Kauffman PA-C 08/17/2025 11:53 AM EDT - 08/17/2025 11:59 PM EDT Hospital Encounter Department of Radiation Oncology [address] [place] [address] Krystyna Bowles MD, PhD Discharge Disposition: Home or Self Care 08/17/2025 11:00 AM EDT Infusion Infusion Therapy Services [facility] at [address] [address] Audrey Bush MD, MPH Shreya Solomon RN 08/17/2025 10:00 AM EDT Office Visit [facility], [facility] at [address] [address] Tiffanie Kauffman PA-C Morgans, Alicia Katherine, MD, MPH Prostate cancer (Primary Dx) from Last 3 Months Immunizations Immunization Administration [...] Sign Reading Time Taken Comments Blood Pressure 134/73 08/17/2025 9:36 AM EDT Pulse 83 08/17/2025 9:36 AM EDT Temperature 36.1 C (97 F) 08/17/2025 9:36 AM EDT Respiratory Rate 18 08/17/2025 9:36 AM EDT Oxygen Saturation 99% 08/17/2025 9:36 AM EDT Inhaled Oxygen Concentration - - Weight 112.9 kg (248 lb 14.4 oz) 08/17/2025 9:36 AM EDT Height 175.3 cm (5' 9 ) 03/15/2025 2:52 PM EDT Body Mass Index 36.76 03/15/2025 2:52 PM EDT Plan of Treatment Upcoming Encounters Date Type Department Care Team (Late st Contact Info) Description 09/07/2025 9:30 AM EDT Office Visit Adult Palliative Care, [facility] [place] [address] [facility], [address] [place] [address] Vibha Chavarria MD, [place] [address] [facility], Palliative Medicine 8 [place] [address] [email or web address] 11/23/2025 1:40 PM EST Blood Draw Laboratory Services, [facility] [place] at [place] [address] [facility] 3rd [place] [address] Audrey Bush MD, MPH [address] [place] [address] [email or web address] Health Maintenance Due Date Last Done Comments HEPATITIS C SCREENING 1973 PNEUMOCOCCAL VACCINES (50+ years) (1 of 2 - PCV) 1974 COLOGUARD 2000 COLONOSCOPY 2000 COLORECTAL CANCER SCREENING 2000 FIT TEST 2000 FOBT 2000 SIGMOIDOSCOPY 2000 VIRTUAL COLONOSCOPY 2000 ABDOMINAL AORTIC ANEURYSM (AAA) SCREENING 2020 DIABETIC EYE EXAM 05/09/2023 TSH LEVEL 02/11/2025 02/12/2024, 11/06/2023 DEPRESSION SCREENING 01/14/2026 01/14/2025 HEMOGLOBIN A1C 01/29/2026 07/29/2025 BLOOD PRESSURE 02/14/2026 08/17/2025 CREATININE LEVEL 08/17/2026 08/17/2025, , 01/19/2025, Additional history exists POTASSIUM LEVEL 08/17/2026 08/17/2025, 05/02, 01/19/2025, Additional history exists Adult Td,Tdap Booster 03/05/2028 03/05/2018 RSV VACCINE Completed 10/29/2023 ZOSTER VACCINES Completed 06/09/2024, 04/07/2024 SMOKING STATUS SCREENING (Once After 26 Yrs) Completed 03/22/2025 COVID-19 VACCINE Completed 08/09/2025, , 12/06/2023, Additional history exists INFLUENZA VACCINE Completed 08/09/2025, , 10/10/2023, Additional history exists HEPATITIS A VACCINES Aged Out No long [...] this topic Medical Devices Implanted Type Area Bindery Machine Setter/Set Up Operator Device Identifier Shelf Expiration Date Model / Serial / Lot Kit Mixing Vertecem [employer]ement - [id number] Implanted:Qty: 1 on 03/22/2025 by Shivam De Jesus MD, MINDI at [facility] Left: Spine Thoracic [employer] 08.702.017 S / / [id number] Kit Mixing Vertece[employer] - [id number] Implanted:Qty: 1 on 03/22/2025 by Shivam De Jesus MD, MINDI at [facility] Right: Spine Thoracic [employer] 08.702.017 S / / [id number] Procedures Procedure Name Priority Date/Time Associated Diagnosis Comments 25-OH VITAMIN D Routine 08/17/2025 8:55 AM EDT Prostate cancer Osteoporosis, unspecified osteoporosis type, unspecified pathological fracture presence PHOSPHORUS Routine 08/17/2025 8:55 AM EDT Prostate cancer Osteoporosis, unspecified osteoporosis type, unspecified pathological fracture presence MAGNESIUM Routine 08/17/2025 8:55 AM EDT Prostate cancer Osteoporosis, unspecified osteoporosis type, unspecified pathological fracture presence TESTOSTERONE, TOTAL Routine 08/17/2025 8 :55 AM EDT Prostate cancer PSA DIAGNOSTIC (MONITORING) Routine 08/17/2025 8:55 AM EDT Prostate cancer COMPREHENSIVE METABOLIC PANEL Routine 08/17/2025 8:55 AM EDT Prostate cancer HC BLOOD COUNT COMPLETE AUTO&AUTO DIFRNTL WBC Routine 08/17/2025 8:55 AM EDT Prostate cancer TSH Routine 02/12/2024 9:36 AM EDT Prostate cancer from Last 3 Months or Most Recently Relevant to Health Maintenance Results * (ABNORMAL) Comprehensive metabolic panel (08/17/2025 8:55 AM EDT) SODIUM 142 136 - 145 mmol/L [facility] POTASSIUM 3.7 3.4 - 5.1 mmol/L [facility] CHLORIDE 105 98 - 107 mmol/L [facility] CO2 23 22 - 31 mmol/L [facility] BUN 17 6 - 23 mg/dL [facility] CREATININE 1.09 0.50 - 1.20 mg/dL [facility] GLUCOSE 111(H) 70 - 100 mg/dL [facility] ALBUMIN 4.2 3.5 - 5.2 g/dL [facility] TOTAL PROTEIN 7.6 6.4 - 8.3 g/dL [facility] CALCIUM 9.6 8.8 - 10.7 mg/dL [facility] ALKALINE PHOSPHATASE 104 40 - 129 U/L [facility] TOTAL BILIRUBIN 0.5 0.2 - 1.2 mg/dL [facility] AST 16 <41 U/L [facility] ALT 11 <42 U/L [facility] R OSAGE GLOBULIN 3.4 2.3 - 4.2 g/dL [facility] EGFR 73 >59 mL/min/1.7 3m2 [facility] Comment:Estimated glomerular filtration rate calculated using the CKD-EPI refit equation. ANION GAP 14 7 - 17 mmol/L [facility] Blood 08/17/2025 8:55 AM EDT 08/17/2025 8:56 AM EDT us Tiffanie Huntl PA-C LAB BLOOD ORDERABLES Final Result Performing Organization Address City/[facility]/ZIP Co de Phone Number [address] * PSA diagnostic (monitoring) (08/17/2025 8:55 AM EDT) PSA Monitoring <0.02 0.00 - 4.00 ng/mL [facility] Blood 08/17/2025 8:55 AM EDT 08/17/2025 8:56 AM EDT us Tiffanie Huntl PA-C LAB BLOOD ORDERABLES Final Result Performing Organization Address City/[facility]/ZIP Co de Phone Number [address] * 25-OH vitamin D (08/17/2025 8:55 AM EDT) 25 OH VIT D (TOTAL) 37 20 - 50 ng/mL [facility] Comment: <10 ng/mL Severe deficiency 10-19 ng/mL Mild to moderate deficiency 20-50 ng/ml Optimum levels 51-80 ng/mL Increased risk of hypercalciuria >80 ng/mL Toxicity possible Blood 08/17/2025 8:55 AM EDT 08/17/2025 8:56 AM EDT us Tiffanieamrik Kauffman PA-C LAB BLOOD ORDERABLES Final Result [facility] [address] [place] [address] * (ABNORMAL) CBC and differential (08/17/2025 8:55 AM EDT) [facility] WBC 6.89 4.00 - 10.00 K/uL [facility] RBC 4.35(L) 4.50 - 6.40 M/uL [facility] HGB 13.0(L) 13.5 - 18.0 g/dL [facility] HCT 40.4 40.0 - 54.0 % [facility] PLT 239 150 - 450 K/uL [facility] MCV 92.9 80.0 - 100.0 fL [facility] MCH 29.9 27.0 - 32.0 pg [facility] MCHC 32.2 32.0 - 36.0 g/dL [facility] RDW 13.8 11.5 - 14.5 % [facility] MPV 9.4 8.4 - 12.0 fL [facility] NRBC 0.00 0.00 /100 WBCs [facility] ABSOLUTE NRBC 0.00 0 K/uL [facility] DIFF METHOD Auto [facility] NEUTS 78.4(H) 48.0 - 76.0 % [facility] LYMPHS 10.2(L) 18.0 - 41.0 % [facility] MONOS 8.1 4.0 - 11.0 % [facility] EOS 2.3 0.0 - 5.0 % [facility] BASOS 0.7 0.00 - 1.50 % [facility] % IMMATURE GRANS 0.3 0.00 - 1.00 % [facility] ABSOLUTE NEUTS 5.40 1.92 - 7.60 K/uL [facility] ABSOLUTE LYMPHS 0.70(L) 0.72 - 4.10 K/uL [facility] ABSOLUTE MONOS 0.56 0.16 - 1.10 K/uL [facility] ABSOLUTE EOS 0.16 0.00 - 0.50 K/uL [facility] ABSOLUTE BASOS 0.05 0.00 - 0.15 K/uL [facility] ABS IMMATURE GRANS 0.02 0.00 - 0.10 K/uL [facility] Blood 08/17/2025 8:55 AM EDT 08/17/2025 8:56 AM EDT us Tiffanie Garciaspl PA-C LAB BLOOD ORDERABLES Final Result Performing Organization Address [facility] Co de Phone Number [address] * (ABNORMAL) Testosterone, total (08/17/2025 8:55 AM EDT) TESTOSTERONE <3(L) 193 - 740 ng/dL [facility] Blood 08/17/2025 8:55 AM EDT 08/17/2025 8:56 AM EDT us Tiffanie Garciaspl PA-C LAB BLOOD ORDERABLES Final Result Performing Organization Address [facility] Co de Phone Number [address] * Phosphorus (08/17/2025 8:55 AM EDT) PHOSPHORUS 4.0 2.5 - 4.5 mg/dL [facility] Blood 08/17/2025 8:55 AM EDT 08/17/2025 8:56 AM EDT us Tiffanie Garciaspl PA-C LAB BLOOD ORDERABLES Final Result Performing Organization Address City/[facility] Co de Phone Number [address] * Magnesium (08/17/2025 8:55 AM EDT) MAGNESIUM 1.9 1.7 - 2.6 mg/dL [facility] Blood 08/17/2025 8:55 AM EDT 08/17/2025 8:56 AM EDT Tiffanie Kauffman PA-C LAB BLOOD ORDERABLES Final Result Performing Organization Address City/[facility] Co de Phone Number [address] * TSH (02/12/2024 9:36 AM EDT) TSH 1.81 0.27 - 4.20 uIU/mL [facility] LIC# [id number] Blood 02/12/2024 9:36 AM EDT 02/12/2024 9:39 AM EDT Sunita Braden FLOW WORKER LAB BLOOD ORDERABLES Final Result Performing Organization Address City/[facility] Co de Phone Number [facility] LIC# [id number] [address] [place] [address] from Last 3 Months or Most Recently Relevant to Health Maintenance Insurance [employer] SU[employer]LEMENT MEDICARE PART A & B [employer] SUPP[employer]MENT MEDICARE PART A & B [employer] SUPP[employer]MENT MEDICARE PART A & B [employer] SUPPLEMENT MEDICARE PART A & B [employer] SUPPLEMENT MEDICARE PART A & B [employer] SUPPLEMENT MEDICARE PART A & B G[employer] Jony [employer]OSS MEDEX SUPPLEMENT MEDICARE PART A & B [employer] Jony [employer]OSS MEDEX SUPPLEMENT MEDICARE PART A & B [employer]UE [employer] SUPPLEMENT MEDICARE PART A & B Care Teams Manager Content Relationship Specialty Start Date End Date Kirstin Brooks MD [address] [place] [address] PCP - General Internal Medicine 01/03/22 Krystyna Bowles MD, PhD [address] [place] [address] [email or web address] Oncology 07/25/23 Kota Self MD [address] [place] [address] [email or web address] Oncology 09/03/23 Audrey Bush MD, MPH [address] [place] [phone] [email or web address] 09/03/23 Renee Hood, RN [address] [place] [address] [email or web address] Primary Infusion Nurse 10/21/24 Shreya Solomon, ELANA [address] [place] [address] [email or web address] Associate Infusion Nurse 10/21/24 Francheska Jacobs, ELANA [address] [place] [address] [email or web address] Associate Infusion Nurse 10/21/24 Prema Lee RN [address] [place] [address] [email or web address] Associate Infusion Nurse 01/19/25 Shivam De Jesus MD, MINDI [address] [place] [phone] [email or web address] Diagnostic Radiology 03/23/25 Additional Source Comments The information contained in this document represents components of the legal health record. It is not the complete legal health record.[facility]
--- OUTSIDE RECORDS SUMMARY | 2025-09-02 15:11 | XMS_ITS | Clinical Summary ---
Author Organization [facility] Address [address] [place] [address] Care Team Providers Care Production Intern Name Role Phone Kirstin Brooks MD Primary Care Provider [phone] Allergies Active Allergy Reactions Criticality Noted Date [...] age to complete this topic Care Teams Production Intern Relationship Specialty Start Date End Date Kirstin Brooks MD [address] [place] [address] PCP - General Internal Medicine 03/11/19 KIM LANDAVERDE Referring Physician Orthopedic Surgery 12/26/15
--- OUTSIDE RECORDS SUMMARY | 2025-09-02 15:11 | XMS_ITS | Encounter Summary ---
Author Organization [facility] Address [address] [place] [address] Care Team Providers Care Hydrator Operator Name Role Phone Kirstin Brooks MD Primary Care Provider [phone] Reason for Visit * Reason Onset Date Comments orders 08/10/2025 Encounter Details Date Type Department Care Team (Late st Contact Info) Description 08/10/2025 Telephone [facility] [address] [facility] [address] [place] [phone] Luis Montoya MD [address] [facility] [address] [place] [address] Social History Tobacco Use Types Packs/Day Years Used Date Smoking Tobacco: Former Smokeless Tobacco: Never Alcohol Use Standard Drinks/Week Comments Yes 0 (1 standard drink = 0.6 oz pur e alcohol) Interpersonal Safety Answer Date Record ed Physical Abuse Unrecognized value 10/14/2024 Verbal Abuse Unrecognized value 10/14/2024 Sex and Gender Information Value Date Recorded Sex Assigned at Not on file Legal Sex Male 10:25 PM EST Gender Identity Not on file Sexual Orientation Not on file documented as of this encounter Progress Notes * Ishaan Conte MA - 08/11/2025 1:27 PM EDT HIM dept please acquire hospital records. * Ishaan Conte MA - 08/11/2025 1:24 PM EDT Appointment to be changed to hospital follow up. Also, any testing needed will be addresses at the time of his visit with Dr Montoya. * Wilmer Lockhart - 08/10/2025 11:31 AM EDT Patient was seen at [facility] for afib on 07/30/25. He was told to see if his Fingerprint Classifier can order him an Echo. Patient has an upcoming appointment with Dr. Montoya on 08/24/25. He would like an Echo ordered as well as a AAA. Patient states he was told by [facility] that he needed this test done as well and to ask his Fingerprint Classifier. Hospital Follow up: Does this appointment need to be changed to hospital follow up? documented in this encounter Plan of Treatment Upcoming Encounters Date Type Department Care Team (Late st Contact Info) Description 10/25/2025 8:30 AM EST Ancillary Procedure [facility] [address] [facility] [address] [place] [address] 02/23/2026 3:00 PM EDT Office Visit Pulmonology - [place] [address] [facility] [address] [place] [address] Irma Patterson MD [address] [place] [phone] documented as of this encounter Visit Diagnoses Not on filedocumented in this encounter Care Teams Hydrator Operator Relationship Specialty Start Date End Date Kirstin Brooks MD [address] [place] [address] PCP - General Internal Medicine 01/11/25 documented as of this encounter
--- OUTSIDE RECORDS SUMMARY | 2025-09-02 15:12 | XMS_ITS | Clinical Summary ---
Author Organization [facility] Address [address] [place] [address] Phone Care Team Providers Care Fixed Route Operator Name Role Phone Kirstin Brooks MD Primary Care Provider [phone] Allergies No known active allergies Medications tiZANidine [...] time each day at the same time. [facility] 11/20/2015 Active dilTIAZem CD (CARDIZEM CD) 300 mg 24 hr capsule TAKE 1 CAPSULE DAILY 90 capsule 1 04/07/2025 Active Active Problems Problem Noted Date Diagnosed Date Syncope and collapse 08/23/2025 Assessment & Plan (08/24/2025 12:25 PM EDT): Orders: Vascular US abdominal aorta aneurysm (AAA) screening; Future Dyspnea on exertion 08/28/2021 Heart failure with preserved ejection fraction ([facility] V24, [facility] V28) 08/28/2021 HLD (hyperlipidemia) 02/21/2021 PVC's (premature ventricular contractions) 02/21 Assessment & Plan (08/24/2025 12:25 PM EDT): Orders: ECG 12 lead Vascular US abdominal aorta aneurysm (AAA) screening; Future HTN (hypertension) 12/29/2020 PAF (paroxysmal atrial fibri llation) ([facility] V24, [facility] V28) 12/29/2020 Type II or unspecified type diabetes mellitus with ketoacidosis, uncontrolled(250.12) ([facility] V24, [facility] V28) 12/29/2020 Encounters Date Type Department Care Team Description 08/24/2025 10:35 AM EDT Office Visit [facility] - [facility] [address] [place] [phone] Luis Correa MD PVC's (premature ventricular contractions) (Primary Dx); Permanent atrial fibrillation ([facility] V24, [facility] [place] [facility] V28); Syncope and collapse; History of tobacco abuse 08/10/2025 Telephone [facility] - [address] [place] [phone] Luis Correa MD 06/09/2025 2:50 PM EDT - 06/09/2025 11:59 PM EDT Hospital Encounter [facility] [address] [place] [address] Pain in thoracic spine Discharge Disposition: Home or Self Care 06/08/2025 Telephone Pulmonology - [place] [address] [facility] [address] [place] [address] Irma Patterson MD from Last 3 Months Immunizations Immunization Administration Dates Next Due Pfizer SARS-CoV-2 COVID-19, mRNA, LNP-S, preservative free 01/12/2021,12/22/2020 Surgical History Surgery Date Site/Laterality Comments GASTRIC BAND ADJUSTMENT and removal CARDIOVERSION CARDIAC ABLATION CERVICAL FUSION Medical History Medical History Date Comments Hypertension Hyperlipidemia Diabetes mellitus ([facility] V 24, [facility] [place] V28) GERD (gastroesophageal reflux disease) Atrial fibrillation ([facility] [place] V24, [facility] [place] V28) Sleep apnea COPD (chronic obstructive pu lmonary disease) ([facility] [place] V24, [facility] [place] V28) Asthma Prostate cancer ([facility] [place] V24, [facility] V28) Type 2 diabetes mellitus ( [facility] V24, [facility] V28) without complication, withou t long-term current use of insulin Social History Tobacco Use Types Packs/Day Years Used Date Smoking Tobacco: Former Smokeless Tobacco: Never Alcohol Use Standard Drinks/Week Comments Yes 0 (1 standard drink = 0.6 oz pur e alcohol) occ Interpersonal Safety Answer Date Record ed Physical Abuse Unrecognized value 10/14/2024 Verbal Abuse Unrecognized value 10/14/2024 Sex and Gender Information Value Date Recorded Sex Assigned at Not on file Legal Sex Male 10:25 PM EST Gender Identity Not on file Sexual Orientation Not on file Obstetrics History Last Filed Vital Signs Vital Sign Reading Time Taken Comments Blood Pressure 138/80 08/24/2025 10:15 AM EDT Pulse 102 08/24/2025 10:15 AM EDT Temperature 36.3 C (97.4 F) 10/14/2024 9:59 AM EST Respiratory Rate 16 10/14/2024 10:19 AM EST Oxygen Saturation 99% 08/24/2025 10:15 AM EDT Inhaled Oxygen Concentration - - Weight 112 kg (247 lb) 08/24/2025 10:15 AM EDT Height 175.3 cm (5' 9 ) 08/24/2025 10:15 AM EDT Body Mass Index 36.48 08/24/2025 10:15 AM EDT Plan of Treatment Upcoming Encounters Date Type Department Care Team (Late st Contact Info) Description 10/25/2025 8:30 AM EST Ancillary Procedure [facility] - [facility] [address] [facility] [facility] [address] [place] [address] 02/23/2026 3:00 PM EDT Office Visit Pulmonology - [place] [address] [facility] [address] [place] [phone] Irma Patterson MD [address] [place] [phone] Health Maintenance Due Date Last Done Comments Diabetes: Annual Foot Exam 1965 Diabetes: Annual Retina Eye Exam 1965 Pneumococcal Vaccine: 50+ Years (1 of 2 - PCV) 1974 Abdominal Aortic Aneurysm (AAA) Screen 11/04/2022 Hepatitis C Screening 11/04/2022 Medicare Annual Wellness Visit 11/04/2022 Social Influencers of Health Screening 11/04/2022 Depression Screening 12/02/2024 Falls Risk Assessment 10/14/2025 10/14/2024 Diabetes: Blood Sugar Control Test (HGBA1C) 01/29/2026 07/29/2025 Diabetes: Annual Urine Albumin-Creatinine Ratio (uACR) 07/29/2026 07/29/2025 Diabetes: Annual GFR (Glomerular Filtration Rate) 08/17/2026 08/17/2025, 07/29/2025, 05/18/2025, Additional history exists Hypertension/CHF/CAD Annual BMP Blood Test 08/17/2026 08/17/2025, 07/29/2025, 05/18/2025, Additional history exists DTaP,Tdap,and Td Vaccines (2 - Td or Tdap) 03/05/2028 03/05/2018 Colorectal Cancer Screening: Colonoscopy 10/14/2029 10/14/2024 Cholesterol Screening (Lipid Panel) 07/29/2030 07/29/2025 RSV Immunization Adult Patients Completed 10/29/2023 Zoster Vaccines Completed 06/09/2024, 04/07/2024 COVID-19 Vaccine Completed 08/09/2025, , 12/06/2023, Additional history exists Influenza Vaccine Completed 08/09/2025, , 10/10/2023, Additional history exists HIB Vaccines Aged Out [...] Procedure Name Priority Date/Time Associated Diagnosis Comments ECG 12-LEAD Routine 08/24/2025 10:34 AM EDT PVC's (premature ventricular contractions) CBC WITH AUTO DIFFERENTIAL Routine 07/29/2025 9:36 AM EDT Diabetes mellitus (CMS/HCC V24, CMS/HCC V28) Hyperlipemia Routine general medical examination at [facility] care facility CARTER URINE CULTURE TUBE Routine 07/29/2025 9:36 AM EDT Diabetes mellitus ([facility] V24, [facility] V28) Hyperlipemia Routine general medical examination at a [facility] care facility URINALYSIS WITH REFLEX MICROSCOPIC AND CULTURE Routine 07/29/2025 9:36 AM EDT Diabetes mellitus ([facility] V24, [facility] V28) Hyperlipemia Routine general medical examination at a [facility] care facility MICROALBUMIN CREATININE URINE RATIO Routine 07/29/2025 9:36 AM EDT Diabetes mellitus ([facility] V24, [facility] V28) Hyperlipemia Routine general medical examination at a [facility] facility CBC AND DIFFERENTIAL Routine 07/29/2025 9:36 AM EDT Diabetes mellitus ([facility] V24, [facility] V28) Hyperlipemia Routine general medical examination at a [facility] care facility COMPREHENSIVE METABOLIC PANEL Routine 07/29/2025 9:36 AM EDT Diabetes mellitus ([facility] V24, [facility] V28) Hyperlipemia Routine general medical examination at a [facility] care facility LIPID PANEL WITH REFLEX TO DIRECT LDL Routine 07/29/2025 9:36 AM EDT Diabetes mellitus ([facility] V24, [facility] V28) Hyperlipemia Routine general medical examination at a [facility] care facility HEMOGLOBIN A1C Routine 07/29/2025 9:36 AM EDT Diabetes mellitus ([facility] V24, [facility] V28) Hyperlipemia Routine general medical examination at a [facility] care facility URINALYSIS WITH REFLEX MICROSCOPIC AND CULTURE Routine 07/29/2025 9:36 AM EDT Diabetes mellitus ([facility] V24, [facility] V28) Hyperlipemia Routine general medical examination at a [facility] care facility XR THORACIC SPINE 2 VIEWS Routine 06/09/2025 2:59 PM EDT Pain in thoracic spine COLONOSCOPY Routine 10/14/2024 9:58 AM EST Hemorrhage of rectum and anus from Last 3 Months or Most Recently Relevant to Health Maintenance Results * ECG 12 lead (08/24/2025 10:34 AM EDT) Ventricular Rate ECG 102 BPM GEMUSE Atrial Rate 100 BPM GEMUSE QRS Duration 100 ms GEMUSE Q-T Interval 374 ms GEMUSE QTc 487 ms GEMUSE R [place] 52 degrees GEMUSE T [place] -31 degrees GEMUSE ECG Interpretation Atrial fibrillation with rapid ventricular response with premature ventricular or aberrantly conducted complexes Nonspecific ST and T wave abnormality When compared with ECG of 28-JUN-2020 09:39, No significant change was found Confirmed by STEFANY CORREA ([id number]) on 08/24/2025 12:26:08 PM GEMUSE 08/24/2025 10:3 4 AM EDT 08/24/2025 12:26 PM EDT us Luis Correa MD ECG ORDERABLES Final Resu lt [facility] * (ABNORMAL) Urinalysis with reflex microscopic and culture (07/29/2025 9:36 AM EDT) [facility] Urine 1.008 1.003 - 1.030 LAB URINALYSIS - AUTOMATED METHOD 07/29/2025 11:43 AM EDT [facility] pH, Urine 7.0 5.0 - 8.0 pH LAB URINALYSIS - AUTOMATED METHOD 07/29/2025 11:43 AM EDT [facility] Leukocytes, Urine Negative Negative LAB URINALYSIS - AUTOMATED METHOD 07/29/2025 11:43 AM EDT [facility] Nitrite, Urine Negative Negative LAB URINALYSIS - AUTOMATED METHOD 07/29/2025 11:43 AM [facility] Protein, Urine Negative <=Trace mg/dL LAB URINALYSIS - AUTOMATED METHOD 07/29/2025 11:43 AM [facility] Glucose, Urine Negative Negative mg/dL LAB URINALYSIS - AUTOMATED METHOD 07/29/2025 11:43 AM [facility] Ketones, Urine Negative Negative mg/dL LAB URINALYSIS - AUTOMATED METHOD 07/29/2025 11:43 AM [facility] Urobilinogen, Urine 0.2 0.2 - 1.0 mg/dL LAB URINALYSIS - AUTOMATED METHOD 07/29/2025 11:43 AM [facility] Bilirubin, Urine Negative Negative LAB URINALYSIS - AUTOMATED METHOD 07/29/2025 11:43 AM [facility] Blood, Urine Trace(A) Negative LAB URINALYSIS - AUTOMATED METHOD 07/29/2025 11:43 AM [facility] RBC, Urine 3.7 0 - 4 /HPF LAB URINALYSIS - AUTOMATED METHOD 07/29/2025 11:43 AM [facility] WBC, Urine 0.1 0 - 4 /HPF LAB URINALYSIS - AUTOMATED METHOD 07/29/2025 11:43 AM [facility] Squamous Epithelial, Urine 7 0 - 60 /LPF LAB URINALYSIS - AUTOMATED METHOD 07/29/2025 11:43 AM [facility] Bacteria, Urine Negative Negative /HPF LAB URINALYSIS - AUTOMATED METHOD 07/29/2025 11:43 AM [facility] Hyaline Casts, Urine 0.0 0 - 3 /LPF LAB URINALYSIS - AUTOMATED METHOD 07/29/2025 11:43 AM [facility] Urine Urine specimen obtained by clean catch procedure / Unknown Non-blood Collection / Unknown 07/29/2025 9:36 AM EDT 07/29/2025 11:31 AM EDT us Samanta MONTESINOS LAB URINE ORDERABLES Final Resul t Performing Organization Address City/[facility]/ZIP Co de Phone Number [facility] [address] [place] [address], [place] [phone] * Carter urine culture tube (07/29/2025 9:36 AM EDT) Extra Tube Hold for add-ons. 07/29/2025 1:01 PM EDT [facility] Comment:Auto resulted. Urine Urine specimen obtained by clean catch procedure / Unknown Non-blood Collection / Unknown 07/29/2025 9:36 AM EDT 07/29/2025 11:30 AM EDT Samanta MONTESINOS LAB URINE ORDERABLES Final Resul t Performing Organization Address [facility]/ZIP Co de Phone Number [facility] [address] [place] [address], * Lipid panel with reflex to direct LDL (07/29/2025 9:36 AM EDT) Cholesterol 124 0 - 200 mg/dL LAB CHEMISTRY METHOD 07/29/2025 10:46 AM EDT [facility] Triglycerides 125 0 - 150 mg/dL LAB CHEMISTRY METHOD 07/29/2025 10:46 AM EDT [facility] HDL 44 >=40 mg/dL LAB CHEMISTRY METHOD 07/29/2025 10:46 AM EDT [facility] LDL Calculated 55 0 - 100 mg/dL LAB CHEMISTRY METHOD 07/29/2025 10:46 AM EDT [facility] Comment:Estimated LDL Calcul ated using equation: Total cholesterol - HDL cholesterol - (Triglycerides/5) VLDL Cholesterol Yoshi 25 mg/dL LAB CHEMISTRY METHOD 07/29/2025 10:46 AM EDT [facility] Non HDL Chol. (LDL+VLDL) 80 <145 mg/dL LAB CHEMISTRY METHOD 07/29/2025 10:46 AM EDT [facility] Chol/HDL Ratio 2.8 0.0 - 4.4 LAB CHEMISTRY METHOD 07/29/2025 10:46 AM [facility] Blood Venous blood specimen / Unknown Venipuncture / Unknown 07/29/2025 9:36 AM EDT 07/29/2025 9:48 AM EDT Samanta MONTESINOS LAB BLOOD ORDERABLES Final Resul t [facility] [address] [place] [address], * (ABNORMAL) CBC auto differential (07/29/2025 9:36 AM EDT) WBC 7.1 4.8 - 10.8 K/mcL LAB HEMETOLOGY METHOD 07/29/2025 10:08 AM [facility] RBC 4.30(L) 4.50 - 5.50 M/mcL LAB HEMETOLOGY METHOD 07/29/2025 10:08 AM [facility] Hemoglobin 12.7(L) 13.5 - 17.5 g/dL LAB HEMETOLOGY METHOD 07/29/2025 10:08 AM [facility] Hematocrit 40.6(L) 42.0 - 54.0 % LAB HEMETOLOGY METHOD 07/29/2025 10:08 AM [facility] MCV 95.1 79.0 - 98.0 FL LAB HEMETOLOGY METHOD 07/29/2025 10:08 AM [facility] MCH 29.7 27.0 - 32.0 pcg LAB HEMETOLOGY METHOD 07/29/2025 10:08 AM [facility] MCHC 31.3(L) 32.0 - 37.0 g/dL LAB HEMETOLOGY METHOD 07/29/2025 10:08 AM [facility] RDW 14.0 11.0 - 15.0 % LAB HEMETOLOGY METHOD 07/29/2025 10:08 AM [facility] Platelets 251 130 - 400 K/mcL LAB HEMETOLOGY METHOD 07/29/2025 10:08 AM [facility] MPV 9.6 7.0 - 11.0 FL LAB HEMETOLOGY METHOD 07/29/2025 10:08 AM [facility] NRBC 0.0 <1.0 % LAB HEMETOLOGY METHOD 07/29/2025 10:08 AM [facility] NRBC Absolute 0.00 <0.10 K/mcL LAB HEMETOLOGY METHOD 07/29/2025 10:08 AM [facility] Neutrophils Relative 72.3 % LAB HEMETOLOGY METHOD 07/29/2025 10:08 AM [facility] Lymphocytes Relative 15.0 % LAB HEMETOLOGY METHOD 07/29/2025 10:08 AM [facility] Monocytes Relative 8.7 % LAB HEMETOLOGY METHOD 07/29/2025 10:08 AM [facility] Eosinophils Relative 2.5 % LAB HEMETOLOGY METHOD 07/29/2025 10:08 AM [facility] Basophils Relative 1.1 % LAB HEMETOLOGY METHOD 07/29/2025 10:08 AM [facility] Immature Granulocytes Relative 0.4 % LAB HEMETOLOGY METHOD 07/29/2025 10:08 AM [facility] Neutrophils Absolute 5.12 1.50 - 7.00 K/mcL LAB HEMETOLOGY METHOD 07/29/2025 10:08 AM [facility] Lymphocytes Absolute 1.06 1.00 - 5.00 K/mcL LAB HEMETOLOGY METHOD 07/29/2025 10:08 AM [facility] Monocytes Absolute 0.62 0.20 - 1.00 K/mcL LAB HEMETOLOGY METHOD 07/29/2025 10:08 AM EDT [facility] Eosinophils Absolute 0.18 0.00 - 0.50 K/[facility] LAB HEMETOLOGY METHOD 07/29/2025 10:08 AM EDT [facility] Basophils Absolute 0.08 0.00 - 0.20 K/[facility] LAB HEMETOLOGY METHOD 07/29/2025 10:08 AM EDT [facility] Immature Granulocytes Absolute 0.03 0.00 - 0.03 K/[facility] LAB HEMETOLOGY METHOD 07/29/2025 10:08 AM EDT [facility] Blood Venous blood specimen / Unknown Venipuncture / Unknown 07/29/2025 9:36 AM EDT 07/29/2025 9:48 AM EDT Samanta MONTESINOS LAB BLOOD ORDERABLES Final Resul t [facility] [address] [place] [address], * (ABNORMAL) Microalbumin creatinine urine ratio (07/29/2025 9:36 AM EDT) Creatinine, Urine 42.0 mg/dL LAB CHEMISTRY METHOD 07/29/2025 2:20 PM EDT [facility] Microalb, Ur 30.4(H) 0.0 - 29.0 mg/L LAB CHEMISTRY METHOD 07/29/2025 2:20 PM EDT [facility] Microalb/Crea t Ratio 72(H) <30 mg/g creat LAB CHEMISTRY METHOD 07/29/2025 2:20 PM T [facility] Urine Urine specimen obtained by clean catch procedure / Unknown Non-blood Collection / Unknown 07/29/2025 9:36 AM EDT 07/29/2025 11:31 AM EDT us Samanta MONTESINOS LAB URINE ORDERABLES Final Resul t Performing Organization Address [facility]/ZIP Co de Phone Number [facility] [address] [place] [address], [place] [phone] * Hemoglobin A1c (07/29/2025 9:36 AM EDT) Pathologist [facility] Hemoglobin A1C 6.0 <6.5 % LAB CHEMISTRY METHOD 07/29/2025 1:59 PM EDT [facility] Mean Bld Glu Estim. 126 mg/dL LAB CHEMISTRY METHOD 07/29/2025 1:59 PM EDT [facility] Blood Venous blood specimen / Unknown Venipuncture / Unknown 07/29/2025 9:36 AM EDT 07/29/2025 9:48 AM EDT us Samanta MONTESINOS LAB BLOOD ORDERABLES Final Resul t Performing Organization Address [facility] de Phone Number [facility] [address] [place] [address], [place] [phone] * (ABNORMAL) Comprehensive metabolic panel (07/29/2025 9:36 AM EDT) [facility] Sodium 142 133 - 145 mmol/L LAB CHEMISTRY METHOD 07/29/2025 10:46 AM EDT [facility] Potassium 4.3 3.5 - 5.5 mmol/L LAB CHEMISTRY METHOD 07/29/2025 10:46 AM EDT [facility] Chloride 107 96 - 110 mmol/L LAB CHEMISTRY METHOD 07/29/2025 10:46 AM EDT [facility] CO2 28 21 - 32 mmol/L LAB CHEMISTRY METHOD 07/29/2025 10:46 AM EDT [facility] Anion Gap 7 3 - 11 LAB CHEMISTRY METHOD 07/29/2025 10:46 AM EDT [facility] Glucose 110(H) 70 - 100 mg/dL LAB CHEMISTRY METHOD 07/29/2025 10:46 AM [facility] BUN 11 5 - 25 mg/dL LAB CHEMISTRY METHOD 07/29/2025 10:46 AM [facility] Creatinine 1.26 0.70 - 1.30 mg/dL LAB CHEMISTRY METHOD 07/29/2025 10:46 AM [facility] eGFR 62 >=60 mL/min/1. 73m2 LAB CHEMISTRY METHOD 07/29/2025 10:46 AM [facility] Comment:Calculation based on the Chronic Kidney Disease Epidemiology Collaboration (CKD-EPI) equation refit without adjustment for race. BUN/Creatinine Ratio 8.7 LAB CHEMISTRY METHOD 07/29/2025 10:46 AM [facility] Calcium 9.5 8.5 - 10.5 mg/dL LAB CHEMISTRY METHOD 07/29/2025 10:46 AM [facility] AST (SGOT) 17 10 - 42 unit/L LAB CHEMISTRY METHOD 07/29/2025 10:46 AM [facility] ALT (SGPT) 17 10 - 60 unit/L LAB CHEMISTRY METHOD 07/29/2025 10:46 AM [facility] Alkaline Phosphatase 94 42 - 121 unit/L LAB CHEMISTRY METHOD 07/29/2025 10:46 AM [facility] Total Protein 7.0 6.0 - 8.0 g/dL LAB CHEMISTRY METHOD 07/29/2025 10:46 AM [facility] Albumin 3.9 3.2 - 5.0 g/dL LAB CHEMISTRY METHOD 07/29/2025 10:46 AM [facility] Total Bilirubin 0.6 0.0 - 1.4 mg/dL LAB CHEMISTRY METHOD 07/29/2025 10:46 AM [facility] Blood Venous blood specimen / Unknown Venipuncture / Unknown 07/29/2025 9:36 AM EDT 07/29/2025 9:48 AM EDT Samanta MONTESINOS LAB BLOOD ORDERABLES Final Resul t [facility] [address] [place] [address], * XR Thoracic Spine 2 Views (06/09/2025 [...] the mid and lower thoracic spine. Code 96933 -------- FINAL REPORT -------- Dictated By: Gregory Reyes Dictated Date: 06/10/2025 07:48 ET Assigned Physician: Gregory Reyes Reviewed and Electronically Signed By: Gregory Reyes Signed Date: 06/10/2025 07:50 ET Workstation ID: [id number] Transcribed By: Self Edit Transcribed Date: 06/10/2025 [...] the mid and lower thoracic spine. Code 49616 -------- FINAL REPORT -------- Dictated By: Gregory Reyes Dictated Date: 06/10/2025 07:48 ET Assigned Physician: Gregory Reyes Reviewed and Electronically Signed By: Gregory Reyes Signed Date: 06/10/2025 07:50 ET Workstation ID: [id number] Transcribed By: Self Edit Transcribed Date: 06/10/2025 07:48 ET Mary MONTESINOS IMG XR PROCEDURES Final Result * COLONOSCOPY Anesthesia - MAC; [facility] ENDOSCOPY (10/14/2024 9:58 AM EST) Anatomical Region [...] AM EST [facility] Patient Name: Jose Manuel Kam [...] verified by the physician, the nurse, the trust advisor and the social services technician in the pre-procedure area in the [...] was minimal. 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 All rights reserved. The codes documented in this report are preliminary and upon geophysical computer review may be revised to meet current compliance requirements. Garcia Vigil MD 10/14/2024 10:01:37 AM This report has been signed electronically.Garcia Vigil MD Number of Addenda: 0 Note Initiated On: 10/14/2024 9:30 AM Scope Withdrawal Time: 0 hours 17 minutes 21 seconds Scope In: 9:36:33 AM Scope Out: 9:57:43 AM Endoscopy Department at [facility] - [address] [place] [phone] Procedure Note Garcia Vigil MD - 10/14/2024 [facility] Patient Name: Jose Manuel Kam [...] the physician, the nurse, theanesthetist and the social services technician in the pre-procedure area in the [...] loss wasminimal. 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 All rights reserved. The codes documented in this report are preliminary and upon geophysical computer reviewmay be revised to meet current compliance requirements. Garcia Vigil MD 10/14/2024 10:01:37 AM This report has been signed electronically.Garcia Vigil MD Number of Addenda: 0 Note Initiated On: 10/14/2024 9:30 AM Scope Withdrawal Time: 0 hours 17 minutes 21 seconds Scope In: 9:36:33 AM Scope Out: 9:57:43 AM Endoscopy Department at [facility] - [address] [place] [phone] IMPRESSION: - Three 2 to 6 mm [...] Recently Relevant to Health Maintenance Insurance MEDICARE [facility] Care Teams Fixed Route Operator Relationship Specialty Start Date End Date Kirstin Brooks MD [address] [place] [address] [place] [address] PCP - General Internal Medicine 01/11/25
--- OUTSIDE RECORDS SUMMARY | 2025-09-02 15:12 | XMS_ITS ---
Author Name [facility] Organization Unknown Encounters Encounter Type Encounter Reason Primary Diagnosis Location Date Ambulatory [facility] 08/03/2025 Ambulatory [facility] 09/29/2024 Care Team Organization Name Specialty Phone Email Start Date End [facility] 2024
--- OUTSIDE RECORDS SUMMARY | 2025-09-02 15:12 | XMS_ITS | Encounter Summary ---
Author Organization [facility] Address [address] [place] [address] Phone Care Team Providers Care Dish Maker Name Role Phone Kirstin Brooks MD Primary Care Provider [phone] Self-Referred, Patient Unavailable Unavailab Krystyna Kaiser MD, PhD Unavailable [phone] Kota Self MD Unavailable Audrey Bush MD , MPH Unavailable Renee Hood RN Unavailable [email or web address] Shreya Solomon RN Unavailable [email or web address] Francheska Jacobs RN Unavailable [email or web address] Prema Lee RN Unavailable Efe [email or web address] Shivam De Jesus MD, MINDI Unavailable [phone] Encounter Details Date Type Department Care Team (Late st Contact Info) Description 05/10/2023 Procedure Pass [facility] [place] [facility] [place] MRI [address] [place] [address] Social History Tobacco Use Types [...] AM EDT Office Visit Adult Palliative Care, [facility] [place] [address] [facility] [address] [place] [address] Vibha Chavarria MD, [place] [address] [facility], Palliative Medicine JF [address] [place] [address] [email or web address] 11/23/2025 1:40 PM EST Blood Draw Laboratory Services, [facility] [place] [facility] [place] [address] [place] [address] Audrey Bush MD, MPH [address] [place] [address] [email or web address] documented as of this encounter Visit Diagnoses Not on filedocumented in this encounter Additional Health Concerns Infection Onset Date Last Indicated Resolved Time COVID-19 Comment:Sx onset 09/18/23 Test 09/20/23 09/18/2023 09/19/2023 10/08/2023 1:[address] documented as of this encounter Care Teams Dish Maker Relationship Specialty Start Date End Date Kirstin Brooks MD [address] [place] [id number] PCP - General Internal Medicine 01/03/22 Self-Referred, Patient Referring Physician 04/18/23 09/02/23 Krystyna Bowles MD, PhD [address] [place] [id number] [email or web address] [email or web address] Oncology 07/25/23 Kota Self MD [address] [place] [phone] [email or web address] Oncology 09/03/23 Audrey Bush MD, MPH [address] [place], [place] [id number] [email or web address] Medical Oncology 09/03/23 Renee Hood, RN [address] [place] [address] [email or web address] Primary Infusion Nurse 10/21/24 Shreya Solomon, ELANA [address] [place] [address] [email or web address] Associate Infusion Nurse 10/21/24 Francheska Jacobs, ELANA [address] [place] [phone] [email or web address] Associate Infusion Nurse 10/21/24 Prema Lee RN [address] [place] [address] [email or web address] Associate Infusion Nurse 01/19/25 Shivam De Jesus MD, MINDI [address] [place] [id number] [email or web address] Diagnostic Radiology 03/23/25 documented as of this encounter Additional Source Comments The information contained in this document represents components of the legal health record. It is not the complete legal health record.[facility]
--- OUTSIDE RECORDS SUMMARY | 2025-09-02 15:12 | XMS_ITS | Patient Health Record ---
Author Organization [facility] [address] Address [address] [place] [address] Care Team Providers Care Ambulance Driver Name Role Phone Samanta Conn Unavailable [phone] BROOKS, ARNALDOSAIRA Unavailable [phone] CALVIN ALDRIDGE Unavailable [phone] MICHELLE, TIERRA Unavailable [phone] MARGARETDELMAR Unavailable [phone] Allergies No Known Allergies Results Component Value Reference Range Notes CBC With Differential/Platel et-[id number] Reviewed date:2024 11:21:55 AM Interpretation: Performing Lab:[facility], [address] [place] [address], [place], Phone - [phone], Director - Shannan Notes/Report: WBC 9.9 3.4-10.8 [...] % Immature Grans (Abs) 0.0 0.0-0.1 x10E3/uL Prothrombin Time (PT)-[id number] Reviewed date:09/10/2024 04:18:33 PM Interpretation: Performing Lab:[facility], [address] [facility], Phone - [phone], Director - [facility] Notes/Report: INR 1.8 0.9-1.1 Prothrombin Time 18.0 9.2-11.4 SEC XR THORACIC SPINE 2 VIEWS Reviewed date:06/10/2025 03:10:52 PM Interpretation: Performing Lab: Notes/Report: Note See Note [facility], a member of [employer] Patient Name: JOSE MANUEL KAM Date of : 1955 Reason for Exam: pain Exam Date: 06/09/2025 [id number] EST Report Status: Final Ordering Provider: DELMAR ROBLES PCP: MAIRBELL BROOKS HISTORY: The patient is a 69-year-old [...] the mid and lower thoracic spine. Code 50270 -------- FINAL REPOR T -------- Dictated By: Gregory Reyes Dictated Date: 06/10 07:48 ET Assigned Physician: Gregory Reyes Reviewed and Electronically Signed By: Gregory Reyes Signed Date: 07:50 ET Workstation ID: [id number] Transcribed By: Self Edit Transcribed Date: 06/10/2025 [...] 10% NB formalin fixed and paraffin embedded. MICROALBUMIN CREATININE URIN E RATIO Reviewed date:07/29/2025 04:07:47 PM Interpretation: Performing Lab: Notes/Report: Creatinine, Urine 42.0 Microalb, Ur 30.4 0.0-29.0 mg/L Microalb/Creat Ratio 72 <30 mg/g creat HEMOGLOBIN A1C Reviewed date:07/29/2025 04:07:39 PM Interpretation: Performing Lab: Notes/Report: Hemoglobin A1C 6.0 <6.5 % Mean Bld Glu Estim. 126 COMPREHENSIVE METABOLIC PANE L Reviewed date:07/29/2025 12:17:17 PM Interpretation: Performing Lab: Notes/Report: Sodium 142 133-145 mmol/L Potassium 4.3 3.5-5.5 mmol/L Chloride 107 96-110 mmol/L CO2 28 21-32 mmol/L Anion Gap 7 3-11 Glucose 110 70-100 mg/dL BUN 11 5-25 mg/dL Creatinine 1.26 0.70-1.30 mg/dL eGFR 62 >=60 mL/min/1.73m2 Calculation based on the Chronic Kidney Disease Epidemiology Collaboration (CKD-EPI) equation refit without adjustment for race. BUN/Creatinine Ratio 8.7 Calcium 9.5 8.5-10.5 mg/dL AST (SGOT) 17 10-42 unit/L ALT (SGPT) 17 10-60 unit/L Alkaline Phosphatase 94 42-121 unit/L Total Protein 7.0 6.0-8.0 g/dL Albumin 3.9 3.2-5.0 g/dL Total Bilirubin 0.6 0.0-1.4 mg/dL LIPID PANEL WITH REFLEX TO D IRECT LDL Reviewed date:07/29/2025 12:16:25 PM Interpretation: Performing Lab: Notes/Report: Cholesterol 124 0-200 mg/dL Triglycerides 125 0-150 mg/dL HDL 44 >=40 mg/dL LDL Calculated 55 0-100 mg/dL Estimated LDL Calculated using equation: Total cholesterol - HDL cholesterol - (Triglycerides/5) VLDL Cholesterol Yoshi 25 Non HDL Chol. (LDL+VLDL) 80 <145 mg/dL Chol/HDL Ratio 2.8 0.0-4.4 CBC WITH AUTO DIFFERENTIAL Reviewed date:07/29/2025 12:17:35 PM Interpretation: Performing Lab: Notes/Report: WBC 7.1 4.8-10.8 K/mcL RBC 4.30 4.50-5.50 M/mcL Hemoglobin 12.7 13.5-17.5 g/dL Hematocrit 40.6 42.0-54.0 % MCV 95.1 79.0-98.0 FL MCH 29.7 27.0-32.0 pcg MCHC 31.3 32.0-37.0 g/dL RDW 14.0 11.0-15.0 % Platelets 251 130-400 K/mcL MPV 9.6 7.0-11.0 FL NRBC 0.0 <1.0 % NRBC Absolute 0.00 <0.10 K/mcL Neutrophils Relative 72.3 Lymphocytes Relative 15.0 Monocytes Relative 8.7 Eosinophils Relative 2.5 Basophils Relative 1.1 Immature Granulocytes Relative 0.4 Neutrophils Absolute 5.12 1.50-7.00 K/mcL Lymphocytes Absolute 1.06 1.00-5.00 K/mcL Monocytes Absolute 0.62 0.20-1.00 K/mcL Eosinophils Absolute 0.18 0.00-0.50 K/mcL Basophils Absolute 0.08 0.00-0.20 K/mcL Immature Granulocytes Absolute 0.03 0.00-0.03 K/mcL XR LUMBAR SPINE 2-3 VIEWS Reviewed date:02/16/2025 04:08:55 PM Interpretation: Performing Lab: Notes/Report: Note See Note [facility], a member of [facility] Patient Name: JOSE MANUEL KAM Date of : 1955 Reason for Exam: THORACIC PAIN M54.6 Exam Date: 02/16/2025 [id number] EST Report Status: Final Ordering Provider: SAMANTA CONN PCP: MARIBELL BROOKS HISTORY: The patient [...] Extensive atherosclerotic arterial calcification is noted. Code 33879 -------- FINAL REPOR T -------- Dictated By: Gregory Reyes Dictated Date: 02/16 11:45 ET Assigned Physician: Gregory Reyes Reviewed and Electronically Signed By: Gregory Reyes Signed Date: 025 11:49 ET Workstation ID: [id number] Transcribed By: Self Edit Transcribed Date: 02/16/2025 11:45 ET XR THORACIC SPINE 2 VIEWS Reviewed date:02/16/2025 04:06:08 PM Interpretation: Performing Lab: Notes/Report: Note See Note [facility], a member of [facility] Patient Name: JOSE MANEUL KAM Date of : 1955 Reason for Exam: pain Exam Date: 02/16/2025 [id number] EST Report Status: Final Ordering Provider: SAMANTA CONN PCP: MARIBELL BROOKS HISTORY: The patient [...] the mid and lower thoracic spine. Code 89068 -------- FINAL REPOR T -------- Dictated By: Gregory Reyes Dictated Date: 02/16 11:42 ET Assigned Physician: Gregory Reyes Reviewed and Electronically Signed By: Gregory Reyes Signed Date: 025 11:45 ET Workstation ID: [id number] Transcribed By: Self Edit Transcribed Date: 02/16/2025 [...] 0.03 0.00-0.03 K/mcL Comp. Metabolic Panel (14)-3 [id number] Reviewed date:01/07/2025 02:47:01 PM Interpretation: Performing Lab:[facility], [place] [facility], Phone - [phone], Director - [facility] Notes/Report: Glucose 107 70-99 mg/dL BUN 13 [...] 8 0-44 IU/L Calcitriol(1,25 di-OH Vit D) -[id number] Reviewed date:01/07/2025 08:59:28 AM Interpretation: Performing Lab:[facility], [place] [facility], [place], Phone - [phone], Director - MDJodry Notes/Report: Calcitriol(1,25 di-OH Vit D) 34.0 24.8-81.5 pg/mL CBC With Differential/Platel et-[id number] Reviewed date:01/07/2025 02:46:41 PM Interpretation: Performing Lab:[facility], [address] [place] [address], Phone - [phone], Director - MDJodry Notes/Report: WBC 11.5 3.4-10.8 [...] % Immature Grans (Abs) 0.0 0.0-0.1 x10E3/uL TSH-[id number] Reviewed date:01/07/2025 08:59:43 AM Interpretation: Performing Lab:[facility], [address] [place] [address], Phone - [phone], Director - MDJodry Notes/Report: TSH 1.810 0.450-4.500 uIU/mL Vitamin A79-574017 Reviewed date:01/07/2025 08:59:09 AM Interpretation: Performing [facility] [address] [place] [address], Phone - [phone], Director - MDJodry Notes/Report: Vitamin B12 313 590-2096 pg/mL Priscilla Perez CMP14 Default A hand-written panel/profile was received from your office. In accordance with the [facility] Ambiguous Test Code Policy dated June 2003, we have completed your order by using the closest currently or formerly recognized AMA panel. We have assigned Comprehensive Metabolic Panel (14), Test Code #982657 to this request. If this is not the testing you wished to receive on this specimen, please contact the [facility] Client Inquiry/Technical Services Department to clarify the test order. We appreciate your business. RPR, Rfx Qn RPR/Confirm TP-0 86011 Reviewed date:01/07/2025 09:00:04 AM Interpretation: Performing Lab:[facility], [address], [place], Phone - [phone], Director - Shannan Notes/Report: RPR Non Reactive Non Reactive URINALYSIS WITH REFLEX MICRO SCOPIC AND CULTURE Reviewed date:07/29/2025 12:16:35 PM Interpretation: Performing Lab: Notes/Report: Specific [place] Urine 1.008 1.003-1.030 pH, Urine 7.0 5.0-8.0 pH Leukocytes, Urine Negative Negative Nitrite, Urine Negative Negative Protein, Urine Negative <=Trace mg/dL Glucose, Urine Negative Negative mg/dL Ketones, Urine Negative Negative mg/dL Urobilinogen, Urine 0.2 0.2-1.0 mg/dL Bilirubin, Urine Negative Negative Blood, Urine Trace Negative RBC, Urine 3.7 0-4 /HPF WBC, Urine 0.1 0-4 /HPF Squamous Epithelial, Urine 7 0-60 /LPF Bacteria, Urine Negative Negative /HPF Hyaline Casts, Urine 0.0 0-3 /LPF Reason For Referral Reason [facility]; compulsive behaviors, mood d/o; Neurosych eval- decreased memory Diagnosis 1 Memory changes (R41. 3) Diagnosis 2 Compulsive buying (F 42.8) Diagnosis 3 Mood disorder (F39) Referral Organization [facility] [address] Referring Provider First Name MARIBELL Referring Provider Last Name BHARGAVI Referring Provider Speciality Internal M edicine Referred Provider Specialty Neuropsychia try General Notes [facility] , (p) [phone], (f) [phone] Clinical Notes Susan Clement 08:44:35 AM > referral faxed with Filiberto hammonds [place] 01/13/2025 09:18:31 AM > I called the office, and they do not see patients over 65 years old with memory issues. They advised sending the referral to the memory clinic. Faxed. phone: [phone], Fax: [phone], [facility] memory [facility] , fax - [phone], Pt requested we also fax this referral to neuro psych attn to jorge , fax- [phone] , faxed , phone - [phone] Referral Priority Routine Reason evaluate & treat Diagnosis 1 Memory changes (R41. 3) Referral Organization [facility] [address] Referring Provider First Name Samanta Referring Provider Last Name Antoniaosito Referring Provider Speciality Internal M edicine Referred Provider Specialty Neurology General Notes Pooja Ross 01/01 10:28:21 AM >manually faxed to [facility] nuerology at fax#[phone], their phone number is [phone] Clinical Notes Susan Clement 01:16:10 PM > manually refaxed with MRI and lab results, Roberto De Los Santos 01/13/2025 09:24:59 AM > I called the office, and they do not see patients over 65 years old with memory issues. They advised sending the referral to the memory clinic. Faxed. phone: [phone], Fax: [phone], Marcello Rao 01/14/2025 02:24:58 PM > re faxed referral to memory clinic, Mary Ellen Yanez 02/09/2025 11:07:59 AM >, faxed labsFiliberto [facility]ena 08/13/2025 02:59:12 PM > The patient was seen 07/23/25 Referral Priority Routine Medications Medication SIG (Take, Route, Frequency, Duration) Notes Start Date End Date Status Vitamin D 50 MCG (1999) 1 tablet Orally Once a day Active Pantoprazole Sodium 40 mg TAKE 1 TABLET DAILY Active Warfarin Sodium 5 mg TAKE 1 TABLET DAILY Active dilTIAZem HCl ER 300 MG 1 capsule Orally Once a day Active Calcium 600 MG 1 tablet with meals Orally Twice a day Active tiZANidine HCl 2 MG 1 tablet at bedtime Orally once daily; Duration: 30 days As needed as needed Active Levothyroxine Sodium 100 MCG TAKE 1 TABLET DAILY IN THE MORNING ON AN EMPTY STOMACH Active Abiraterone Acetate 500 MG one tablet Oral once daily; Duration: 30 days Not-Taking Nitroglycerin 0.[address] 1 TABLET BY MOUTH UNDER TONGUE; Duration: 30 days As needed Active predniSONE 5 MG 1 tablet Orally Once a day Not-Taking metFORMIN HCl 500 mg TAKE 1 TABLET DAILY WITH A MEAL Active Journavx 50 MG as directed Orally; Duration: 10 days 2 tablets x 1 dose now, then 1 tablet every 12 hours x 3 doses, then 1 tablet every 24 hours thereafter for acute pain 03/04/2025 Not-Taking Furosemide 40 mg TAKE 1 TABLET DAILY Active Losartan Potassium 100 mg TAKE 1 TABLET DAILY Active Citalopram Hydrobromide 20 mg TAKE 1 TABLET DAILY orally once a day; Duration: 90 days Active Pravastatin Sodium 40 mg TAKE 1 TABLET D AILY orally once a day; Duration: 90 days Active traMADol HCl 50 MG 1 tablet as needed Orally twice a day; Duration: 30 days 08/31/2025 Active Immunizations Vaccine Route Administration Date Status [...] 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) Type 2 diabetes mellitus with unspecified complications (E11.8) Active confirmed Problem Morbid obesity (disorder) (204744304) Morbid (severe) obesity due to excess calories (E66.01) Active confirmed Problem Hyperlipidemia (20983066) Hyperlipidemia, unspecified (E78.5) Active confirmed Problem Periodic limb movement disorder (844038313) Periodic limb movement disorder (G47.61) Active confirmed Problem Chronic pain (28658188) Other chronic pain (G89.29) Active confirmed Problem Essential hypertension (22961985) Essential (primary) hypertension (I10) Active confirmed Problem Paroxysmal atrial fibrillation (888652737) Paroxysmal atrial fibrillation (I48.0) Active confirmed Problem Common cold (99797216) Acute nasopharyngitis [common cold] (J00) Active confirmed Problem Acute exacerbation of chronic obstructive airways disease (267780724) Chronic obstructive pulmonary disease with (acute) exacerbation (J44.1) Active confirmed Problem Chronic obstructive lung disease (62705828) Chronic obstructive pulmonary disease, unspecified (J44.9) Active confirmed Problem Adult health examination (001528636) Encounter for general adult medical examination without abnormal findings (Z00.00) Active confirmed Problem Morbid obesity (269958026) Morbid obesity (E66.01) Active confirmed Problem Disorder due to type 2 diabetes mellitus (795868679) 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, unspecified whether correction insulin use (E11.8) Active confirmed Problem Hyperlipidaemia (29793494) Hyperlipidemia, unspecified hyperlipidemia type (E78.5) Active confirmed Problem Acquired hypothyroidism (436723315) Acquired hypothyroidism (E03.9) Active confirmed Problem Malignant tumor of prostate (121034177) Prostate cancer (C61) Active confirmed Problem Vitamin D deficiency (52715571) Vitamin D deficiency (E55.9) Active confirmed Problem Elevated PSA (545268832) Elevated PSA (R97.20) Active confirmed Problem Blood in stool (404831931) Blood in stool (K92.1) Active confirmed Problem Obstructive sleep apnea syndrome (64112620) ENE (obstructive sleep apnea) (G47.33) Active confirmed Problem Body mass index 40+ - morbidly obese (042265926) BMI 40.0-44.9, adult (Z68.41) Active confirmed Problem Use of anticoagulation (818694351) Chronic anticoagulation (Z79.01) Active confirmed Problem Type II diabetes mellitus without complication (027566618) Type 2 diabetes mellitus without complication, without long-term current use of insulin (E11.9) Active confirmed Problem Body mass index 40+ - severely obese (301979449) Body mass index [BMI] 45.0-49.9, adult (Z68.42) Active confirmed Problem Cough (27622871) Cough (R05.9) Active confirmed Problem Amnesia (01463401) Memory change s (R41.3) Active confirmed Problem Lumbosacral radiculopathy (3185750) Sciatic radiculitis (M51.17) Active confirmed Problem Lumbar pain (994500170) Lumbar pain (M54.50) Active confirmed Problem Mood disorder (77390964) Mood disorder (F39) Active confirmed Problem Obstructive sleep apnea syndrome (47527183) ENE on CPAP (G47.33) Active confirmed Problem White blood cell disorder (96114003) Abnormal white blood cell (WBC) (D72.9) Active confirmed Problem Compulsive buying (2408020) Compulsive buying (F42.8) Active confirmed Vital Signs Heart Rate 63 /min 08/10/2025 Temperature 98.5 degrees Fahrenheit 01/13/2025 Oximetry 98 % 08/10/2025 Blood pressure diastolic 76 mm Hg 08/10/2025 Height 69 in 08/10/2025 Blood pressure systolic 128 mm Hg 08/10/2025 Weight 250.6 lbs 08/10/2025 BMI 37 kg/m2 08/10/2025 Encounters Encounter Location Date Provider Diagnosis [facility] [address] [facility] [address] [place] [address] 09/17/2024 TALAL BROOKS Acute cellulitis L03 .90 ; Hyperlipidemia, unspecified E78.5 ; Paroxysmal atrial fibrillation I48.0 ; Chronic obstructive pulmonary disease, unspecified J44.9 and 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, unspecified whether correction insulin use E11.8 [facility] [address] [address] 10/01/2024 Samanta Svrcek Acute cellulitis L03 .90 ; Other chronic pain G89.29 ; Low back pain, unspecified M54.50 ; Chronic obstructive pulmonary disease, unspecified J44.9 and 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, 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 [facility] [address] [address] 11/05/2024 Samanta Svrcek Low back pain, unspecified M54.50 ; Spinal stenosis of lumbar region with neurogenic claudication M48.062 ; Other chronic pain G89.29 ; Acute cellulitis L03.90 ; Paroxysmal atrial fibrillation I48.0 and Chronic anticoagulation Z79.01 [facility] [address] [address] 12/28/2024 Samanta Svrcek Memory changes R41.3 and Compulsive buying F42.8 [facility] [address] [address] 01/12/2025 Samanta Svrcek Memory changes R41.3 ; Compulsive buying F42.8 ; ENE on CPAP G47.33 and Periodic limb movement disorder G47.61 [facility] [address] [place] [address] 01/13/2025 TIERRA MICHELLE Acute URI J06.9 ; Na naye congestion R09.81 and Body aches R52 [facility] [address] 02/16/2025 Samanta Svrcek Memory changes R41.3 ; Acute bilateral thoracic back pain M54.6 ; Compulsive buying F42.8 ; ENE on CPAP G47.33 and Periodic limb movement disorder G47.61 [facility] [address] 03/04/2025 Samanta Svrcek Compression fracture of T8 vertebra, initial encounter S22.060A [facility] [address] 05/11/2025 Samanta Svrcek Memory changes R41.3 ; Compulsive buying F42.8 ; ENE on CPAP G47.33 ; Periodic limb movement disorder G47.61 ; Type 2 diabetes mellitus without complication, without long-term current use of insulin E11.9 ; Hyperlipidemia, unspecified hyperlipidemia type E78.5 ; Paroxysmal atrial fibrillation I48.0 and Encounter for examination of blood pressure without abnormal findings Z01.30 [facility] [address] 06/09/2025 DELMAR MARGARET History of vertebral compression fracture Z87.81 and Thoracic spine pain M54.6 [facility] [address] 08/10/2025 Samanta Svrcek Syncope and collapse R55 ; Paroxysmal atrial fibrillation I48.0 ; Prostate cancer C61 and Essential (primary) hypertension I10 [facility] [address] [address] 09/17/2024 TALAL BROOKS [facility] [address] [place] [address] 10/26/2024 TALAL BROOKS [facility] [address] [address] 11/13/2024 TALAL BROOKS [facility] [address] [address] 12/30/2024 Samanta Svrcek Memory changes R41.3 [facility] [address] [place] [address] 12/30/2024 TALAL BROOKS [facility] [address] [place] [address] 01/07/2025 Samanta Svrcek Abnormal white blood cell (WBC) D72.9 [facility] [address] [place] [address] 01/11/2025 Samanta Svrcek [facility] [address] [facility] [place] [address] 01/12/2025 TALAL BROOKS [facility] [address] [place] [address] 01/12/2025 Samanta Svrcek [facility] [address] [place] [address] 01/13/2025 Samanta Svrcek [facility] [address] [facility] [address] [place] [address] 01/13/2025 TALAL BROOKS [facility] [address] [place] [address] 01/13/2025 TALAL BROOKS [facility] [address] [facility] [address] [place] [address] 01/15/2025 TALAL BROOKS [facility] [address] [facility] [address] [place] [address] 01/16/2025 DELMAR ROBLES [facility] [address] [facility] [address] [place] [address] 01/20/2025 Samatna Svrcek [facility] [address] [facility] [address] [place] [address] 02/02/2025 Samanta Svrcek [facility] [address] [facility] [address] [place] [address] 02/02/2025 Samanta Svrcek [facility] [address] [place] [address] 02/16/2025 Samanta Svrcek [facility] [address] [place] [address] 02/22/2025 Samanta Svrcek [facility] [address] [facility] [address] [place] [address] 03/04/2025 Samanta Svrcek [facility] [address] [place] [address] 03/29/2025 Samanta Svrcek [facility] [address] [place] [address] 04/05/2025 Samanta Svrcek [facility] [address] [place] [address] 04/16/2025 TALAL BROOKS [facility] [address] [place] [address] 05/19/2025 Samanta Svrcek [facility] [address] [facility] [address] [place] [address] 06/09/2025 Samanta Svrcek [facility] [address] [facility] [address] [place] [address] 06/10/2025 Samanta Svrcek [facility] [address] [place] [address] 06/14/2025 Samanta Svrcek [facility] [address] [facility] [address] [place] [address] 06/18/2025 Samanta Svrcek [facility] [address] [place] [address] 09/29/2024 CALVIN BOWSERT [facility] [address] [place] [address] 11/06/2024 Samanta Svrcek [facility] [address] [place] [address] 12/09/2024 Samanta Svrcek [facility] [address] [place] [address] 12/14/2024 Samanta Svrcek [facility] [address] [place] [address] 12/21/2024 Samanta Svrcek [facility] [address] [place] [address] 01/13/2025 TALAL BROOKS [facility] [address] [place] [address] 02/08/2025 Samanta Svrcek [facility] [address] [place] [address] 02/09/2025 Samanta Svrcek [facility] [address] [place] [address] 03/03/2025 Samanta Svrcek [facility] [address] [address] 03/04/2025 Samanta Svrcek [facility] [address] [address] 07/20/2025 Samanta Svrcek [facility] [address] 08/03/2025 Samanta Svrcek [facility] [address] 08/31/2025 Samanta Svrcek Assessments Encounter Date Diagnosis (ICD Code) Assessment Notes Treatment Notes Treatment Clinical Notes Section Notes 09/17/2024 Hyperlipidemia, unspecified (ICD-10 - E78.5) Patient treated for acute cellulitis to complete K-Flex and wound care done. Hyperlipidemia and back pain stable and patient will continue with current medications for COPD patient is on inhalers.. He has lost 30 pounds with diet and exercise he also is on Coumadin and follows up with Coumadin clinic at [place].. Possible interaction with Coumadin and Keflex and [...] and follows up with Coumadin clinic at [place].. Possible interaction with Coumadin and Keflex and [...] symptoms. #Chronic low back pain. Followed by [facility] pain clinic and is currently getting [...] symptoms. #Chronic low back pain. Followed by [facility] pain clinic and is currently getting [...] for. #Chronic low back pain. Followed by [facility] pain clinic and is currently getting epidural injections without significant improvement. Had follow up MRI as above. #Constipation. Mild. Discussed bowel regimen. Start miralax once daily. Cut back if loose stools. He did have recent colonoscopy last month. #cellulitis- Resolved #A-fib. Denies any chest pain shortness of breath or palpitations. Rate controlled. Anticoagulated on Coumadin and managed by Coumadin clinic in [place]. Most recent INR yesterday was 2.1. Currently on Coumadin 5 mg 4 days a week and 2.5 mg 3 days a week. Dose has been stable for several years. Case discussed with collaborating physician Moustapha Brooks who reviewed the assessment and plan. Chart, medications, labs, vital signs reviewed. Dictation was accomplished with the use of [employer] voice recognition software, prone to medical misidentifications [...] for. #Chronic low back pain. [facility] [facility] pain clinic and is currently getting epidural injections without significant improvement. Had follow up MRI as above. #Constipation. Mild. Discussed bowel regimen. Start miralax once daily. Cut back if loose stools. He did have recent colonoscopy last month. #cellulitis- Resolved #A-fib. Denies any chest pain shortness of breath or palpitations. Rate controlled. Anticoagulated on Coumadin and managed by Coumadin clinic in [place]. Most recent INR yesterday was 2.1. Currently on Coumadin 5 mg 4 days a week and 2.5 mg 3 days a week. Dose has been stable for several years. Case discussed with collaborating physician Moustapha Brooks who reviewed the assessment and plan. Chart, medications, labs, vital signs reviewed. Dictation was accomplished with the use of [employer] voice recognition software, prone to medical misidentifications [...] lab workup. He is interested in seeing [facility] and is requesting a referral today. Will also refer to [facility] neurology and send for brain MRI. Follow-up pending results. #Compulsive buying. He has had an issue with compulsive spending for many years resulting in significant financial issues. He is currently on Celexa and would like to pursue further help with psychiatry and therapy. Requesting referral to [facility] behavioral [facility]. His family is very involved and supportive. As above we will do further workup with labs imaging and referral. Case discussed with collaborating physician Moustapha Brooks who reviewed the assessment and plan. Chart, medications, labs, vital signs reviewed. Dictation was accomplished with the use of [employer] voice recognition software, prone to medical misidentifications [...] lab workup. He is interested in seeing [facility] and is requesting a referral today. Will also refer to [facility] neurology and send for brain MRI. Follow-up pending results. #Compulsive buying. He has had an issue with compulsive spending for many years resulting in significant financial issues. He is currently on Celexa and would like to pursue further help with psychiatry and therapy. Requesting referral to [facility]. His family is very involved and supportive. As above we will do further workup with labs imaging and referral. Case discussed with collaborating physician Moustapha Brooks who reviewed the assessment and plan. Chart, medications, labs, vital signs reviewed. Dictation was accomplished with the use of [employer] voice recognition software, prone to medical misidentifications [...] Followed by pulmonology. #Periodic limb movement disorder. Remarketing Manager wanted to start him on ropinirole for restless legs. He has declined to do so. We did discuss effect of poor sleep on memory and mood. Will request copy of sleep study to review. Case discussed with collaborating physician Moustapha Brooks who reviewed the assessment and plan. Chart, medications, labs, vital signs reviewed. Dictation was accomplished with the use of [employer] voice recognition software, prone to medical misidentifications [...] for now. Would like to persue neuropsych dalila as well. #Compulsive buying. He has had an issue with compulsive spending for many years resulting in significant financial issues. He is currently on Celexa and would like to pursue further help with psychiatry and therapy. Referred. Has good family support. #ENE. On CPAP/BiPAP. Followed by pulmonology. #Periodic limb movement disorder. Remarketing Manager wanted to start him on ropinirole for restless legs. He has declined to do so. We did discuss effect of poor sleep on memory and mood. Will request copy of sleep study to review. Case discussed with collaborating physician Moustapha Brooks who reviewed the assessment and plan. Chart, medications, labs, vital signs reviewed. Dictation was accomplished with the use of [employer] voice recognition software, prone to medical misidentifications [...] Dictation was accomplished with the use of [employer] voice recognition software, prone to medical misidentifications [...] Dictation was accomplished with the use of [employer] voice recognition software, prone to medical misidentifications [...] Dictation was accomplished with the use of [employer] voice recognition software, prone to medical misidentifications [...] Dictation was accomplished with the use of [employer] voice recognition software, prone to medical misidentifications [...] fracture. T8. CT ordered by specialist in [place] reviewd. Planning for Kyphoplasty in [place]- awaiting appt. Will discuss with his specialist this afternoon. Tramadol ineffective for pain control. Unfortunately, he is traveling to [place] Saturday with his grandchildren to go to [place]. Discussed No rides, lifting etc. He will be using a scooter while there. WIll trial Journavx for pain control. Discussed signs/symptoms to monitor for. He will let me know once he has kyphoplasty appt. Case discussed with collaborating physician Moustapha Brooks who reviewed the assessment and plan. Chart, medications, labs, vital signs reviewed. Dictation was accomplished with the use of [employer] voice recognition software, prone to medical misidentifications [...] Dictation was accomplished with the use of [employer] voice recognition software, prone to medical misidentifications [...] review of Tiffanie Kauffman PA-C note from [facility] patient will receive yearly Reclast for osteoporosis treatment pending dental clearance. All questions answered to the patients satisfaction. Patient demonstrates understanding of diagnosis and treatments discussed. Follow-up at next scheduled appointment, sooner should any questions/concerns arise. Case discussed with collaborating physician Jose Brooks who has reviewed the assessment/plan. Chart, medications, labs, and vital signs reviewed. Dictation completed with the use of [employer] voice recognition software, prone to medical misidentifications [...] review of Tiffanie Kauffman PA-C note from [facility] patient will receive yearly Reclast for osteoporosis treatment pending dental clearance. All questions answered to the patients satisfaction. Patient demonstrates understanding of diagnosis and treatments discussed. Follow-up at next scheduled appointment, sooner should any questions/concerns arise. Case discussed with collaborating physician Jose Brooks who has reviewed the assessment/plan. Chart, medications, labs, and vital signs reviewed. Dictation completed with the use of [employer] voice recognition software, prone to medical misidentifications and grammatical errors. All errors are unintentional. Although the practitioner does try to identify and correct errors, some may be present. Please do not hesitate to contact the practitioner for clarification. 05/11/2025 Memory changes (ICD-10 - R41.3) #Memory [...] Dictation was accomplished with the use of [employer] voice recognition software, prone to medical misidentifications and grammatical errors. This is unintentional and the practitioner does try to identify and correct these, but some could still be present. Please do not hesitate to contact practitioner for clarification. All questions answered to patients satisfaction. Patient verbalized understanding of diagnosis and treatments explained. To call sooner prior to next visit it any questions/concerns arise. 08/10/2025 Syncope and collapse (ICD-10 - R55) #Syncope. Episode of syncope after playing golf. He was hospitalized at [facility] over night. Has been feeling well since. Unclear etiology although likely secondary to dehydration, not having eaten, taken tramadol and then drinking 3-4 drinks of alcohol. Workup in the hospital was unremarkable. He has not had any recurrent symptoms since. Discussed importance of hydration and consistent eating habits. He does have follow-up with cardiology in 2 weeks. Discussed option of echocardiogram and Holter monitor which she defers to cardiology. Declines any follow-up labs today. #A-fib. Has been rate controlled. Anticoagulated. Head CT done in the ED was negative. #Prostate cancer. Currently off all medications. Has follow-up with his specialist in [place] next week and is feeling anxious about this. Will follow-up with me pending those results. #Hypertension. Blood pressure at goal today. Continue current regimen. Case discussed with collaborating physician Moustapha Brooks who reviewed the assessment and plan. Chart, medications, labs, vital signs reviewed. Dictation was accomplished with the use of [employer] voice recognition software, prone to medical misidentifications [...] next visit it any questions/concerns arise. 05/11/2025 ENE on CPAP (ICD-10 - G47.33) [...] Dictation was accomplished with the use of [employer] voice recognition software, prone to medical misidentifications [...] symptoms. #Chronic low back pain. Followed by [facility] pain clinic and is currently getting [...] Dictation was accomplished with the use of [employer] voice recognition software, prone to medical misidentifications and grammatical errors. This is unintentional and the practitioner does try to identify and correct these, but some could still be present. Please do not hesitate to contact practitioner for clarification. All questions answered to patients satisfaction. Patient verbalized understanding of diagnosis and treatments explained. To call sooner prior to next visit it any questions/concerns arise. 08/10/2025 Paroxysmal atrial fibrillation (ICD-10 - I48.0) #Syncope. Episode of syncope after playing golf. He was hospitalized at [facility] over night. Has been feeling well since. Unclear etiology although likely secondary to dehydration, not having eaten, taken tramadol and then drinking 3-4 drinks of alcohol. Workup in the hospital was unremarkable. He has not had any recurrent symptoms since. Discussed importance of hydration and consistent eating habits. He does have follow-up with cardiology in 2 weeks. Discussed option of echocardiogram and Holter monitor which she defers to cardiology. Declines any follow-up labs today. #A-fib. Has been rate controlled. Anticoagulated. Head CT done in the ED was negative. #Prostate cancer. Currently off all medications. Has follow-up with his specialist in [place] next week and is feeling anxious about this. Will follow-up with me pending those results. #Hypertension. Blood pressure at goal today. Continue current regimen. Case discussed with collaborating physician Moustapha Brooks who reviewed the assessment and plan. Chart, medications, labs, vital signs reviewed. Dictation was accomplished with the use of [employer] voice recognition software, prone to medical misidentifications [...] Dictation was accomplished with the use of [employer] voice recognition software, prone to medical misidentifications [...] for now. Would like to persue neuropsych dalila as well. #Compulsive buying. He has had an issue with compulsive spending for many years resulting in significant financial issues. He is currently on Celexa and would like to pursue further help with psychiatry and therapy. Referred. Has good family support. #ENE. On CPAP/BiPAP. Followed by pulmonology. #Periodic limb movement disorder. Remarketing Manager wanted to start him on ropinirole for restless legs. He has declined to do so. We did discuss effect of poor sleep on memory and mood. Will request copy of sleep study to review. Case discussed with collaborating physician Moustapha Brooks who reviewed the assessment and plan. Chart, medications, labs, vital signs reviewed. Dictation was accomplished with the use of [employer] voice recognition software, prone to medical misidentifications [...] for. #Chronic low back pain. Followed by [facility] pain clinic and is currently getting epidural injections without significant improvement. Had follow up MRI as above. #Constipation. Mild. Discussed bowel regimen. Start miralax once daily. Cut back if loose stools. He did have recent colonoscopy last month. #cellulitis- Resolved #A-fib. Denies any chest pain shortness of breath or palpitations. Rate controlled. Anticoagulated on Coumadin and managed by Coumadin clinic in [place]. Most recent INR yesterday was 2.1. Currently on Coumadin 5 mg 4 days a week and 2.5 mg 3 days a week. Dose has been stable for several years. Case discussed with collaborating physician Moustapha Brooks who reviewed the assessment and plan. Chart, medications, labs, vital signs reviewed. Dictation was accomplished with the use of [employer] voice recognition software, prone to medical misidentifications [...] and follows up with Coumadin clinic at [place].. Possible interaction with Coumadin and Keflex and patient has been educated and last INR was 1.8 and has follow-up with Coumadin clinic. Patient will see Samanta in 2 weeks for wound check 09/17/2024 Chronic obstructive pulmonary disease, unspecified (ICD-10 - J44.9) Patient treated for acute cellulitis to complete K-Flex and wound care done. Hyperlipidemia and back pain stable and patient will continue with current medications for COPD patient is on inhalers.. He has lost 30 pounds with diet and exercise he also is on Coumadin and follows up with Coumadin clinic at [place].. Possible interaction with Coumadin and Keflex and [...] symptoms. #Chronic low back pain. Followed by [facility] pain clinic and is currently getting [...] for. #Chronic low back pain. Followed by [facility] pain clinic and is currently getting epidural injections without significant improvement. Had follow up MRI as above. #Constipation. Mild. Discussed bowel regimen. Start miralax once daily. Cut back if loose stools. He did have recent colonoscopy last month. #cellulitis- Resolved #A-fib. Denies any chest pain shortness of breath or palpitations. Rate controlled. Anticoagulated on Coumadin and managed by Coumadin clinic in [place]. Most recent INR yesterday was 2.1. Currently on Coumadin 5 mg 4 days a week and 2.5 mg 3 days a week. Dose has been stable for several years. Case discussed with collaborating physician Moustapha Brooks who reviewed the assessment and plan. Chart, medications, labs, vital signs reviewed. Dictation was accomplished with the use of [employer] voice recognition software, prone to medical misidentifications [...] Followed by pulmonology. #Periodic limb movement disorder. Remarketing Manager wanted to start him on ropinirole for restless legs. He has declined to do so. We did discuss effect of poor sleep on memory and mood. Will request copy of sleep study to review. Case discussed with collaborating physician Moustapha Brooks who reviewed the assessment and plan. Chart, medications, labs, vital signs reviewed. Dictation was accomplished with the use of [employer] voice recognition software, prone to medical misidentifications [...] Dictation was accomplished with the use of [employer] voice recognition software, prone to medical misidentifications [...] Dictation was accomplished with the use of [employer] voice recognition software, prone to medical misidentifications and grammatical errors. This is unintentional and the practitioner does try to identify and correct these, but some could still be present. Please do not hesitate to contact practitioner for clarification. All questions answered to patients satisfaction. Patient verbalized understanding of diagnosis and treatments explained. To call sooner prior to next visit it any questions/concerns arise. 08/10/2025 Prostate cancer (ICD-10 - C61) #Syncope. Episode of syncope after playing golf. He was hospitalized at [facility] over night. Has been feeling well since. Unclear etiology although likely secondary to dehydration, not having eaten, taken tramadol and then drinking 3-4 drinks of alcohol. Workup in the hospital was unremarkable. He has not had any recurrent symptoms since. Discussed importance of hydration and consistent eating habits. He does have follow-up with cardiology in 2 weeks. Discussed option of echocardiogram and Holter monitor which she defers to cardiology. Declines any follow-up labs today. #A-fib. Has been rate controlled. Anticoagulated. Head CT done in the ED was negative. #Prostate cancer. Currently off all medications. Has follow-up with his specialist in [place] next week and is feeling anxious about this. Will follow-up with me pending those results. #Hypertension. Blood pressure at goal today. Continue current regimen. Case discussed with collaborating physician Moustapha Brooks who reviewed the assessment and plan. Chart, medications, labs, vital signs reviewed. Dictation was accomplished with the use of [employer] voice recognition software, prone to medical misidentifications and grammatical errors. This is unintentional and the practitioner does try to identify and correct these, but some could still be present. Please do not hesitate to contact practitioner for clarification. All questions answered to patients satisfaction. Patient verbalized understanding of diagnosis and treatments explained. To call sooner prior to next visit it any questions/concerns arise. 08/10/2025 Essential (primary) hypertension (ICD-10 - I10) #Syncope. Episode of syncope after playing golf. He was hospitalized at [facility] over night. Has been feeling well since. Unclear etiology although likely secondary to dehydration, not having eaten, taken tramadol and then drinking 3-4 drinks of alcohol. Workup in the hospital was unremarkable. He has not had any recurrent symptoms since. Discussed importance of hydration and consistent eating habits. He does have follow-up with cardiology in 2 weeks. Discussed option of echocardiogram and Holter monitor which she defers to cardiology. Declines any follow-up labs today. #A-fib. Has been rate controlled. Anticoagulated. Head CT done in the ED was negative. #Prostate cancer. Currently off all medications. Has follow-up with his specialist in [place] next week and is feeling anxious about this. Will follow-up with me pending those results. #Hypertension. Blood pressure at goal today. Continue current regimen. Case discussed with collaborating physician Moustapha Brooks who reviewed the assessment and plan. Chart, medications, labs, vital signs reviewed. Dictation was accomplished with the use of [employer] voice recognition software, prone to medical misidentifications [...] Dictation was accomplished with the use of [employer] voice recognition software, prone to medical misidentifications [...] Dictation was accomplished with the use of [employer] voice recognition software, prone to medical misidentifications [...] 2 diabetes mellitus with complication, unspecified whether correction insulin use (ICD-10 - E11.8) #Cellulitis. Left [...] symptoms. #Chronic low back pain. Followed by [facility] pain clinic and is currently getting [...] for. #Chronic low back pain. Followed by [facility] pain clinic and is currently getting epidural injections without significant improvement. Had follow up MRI as above. #Constipation. Mild. Discussed bowel regimen. Start miralax once daily. Cut back if loose stools. He did have recent colonoscopy last month. #cellulitis- Resolved #A-fib. Denies any chest pain shortness of breath or palpitations. Rate controlled. Anticoagulated on Coumadin and managed by Coumadin clinic in [place]. Most recent INR yesterday was 2.1. Currently on Coumadin 5 mg 4 days a week and 2.5 mg 3 days a week. Dose has been stable for several years. Case discussed with collaborating physician Moustapha Brooks who reviewed the assessment and plan. Chart, medications, labs, vital signs reviewed. Dictation was accomplished with the use of [employer] voice recognition software, prone to medical misidentifications [...] next visit it any questions/concerns arise. 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 Hyperlipidemia and back pain stable and patient will continue with current medications for COPD patient is on inhalers.. He has lost 30 pounds with diet and exercise he also is on Coumadin and follows up with Coumadin clinic at [place].. Possible interaction with Coumadin and Keflex and patient has been educated and last INR was 1.8 and has follow-up with Coumadin clinic. Patient will see Samanta in 2 weeks for wound check 11/05/2024 Chronic anticoagulation (ICD-10 - Z79.01) #Spinal [...] for. #Chronic low back pain. Followed by [facility] pain clinic and is currently getting epidural injections without significant improvement. Had follow up MRI as above. #Constipation. Mild. Discussed bowel regimen. Start miralax once daily. Cut back if loose stools. He did have recent colonoscopy last month. #cellulitis- Resolved #A-fib. Denies any chest pain shortness of breath or palpitations. Rate controlled. Anticoagulated on Coumadin and managed by Coumadin clinic in [place]. Most recent INR yesterday was 2.1. Currently on Coumadin 5 mg 4 days a week and 2.5 mg 3 days a week. Dose has been stable for several years. Case discussed with collaborating physician Moustapha Brooks who reviewed the assessment and plan. Chart, medications, labs, vital signs reviewed. Dictation was accomplished with the use of [employer] voice recognition software, prone to medical misidentifications [...] Dictation was accomplished with the use of [employer] voice recognition software, prone to medical misidentifications [...] Dictation was accomplished with the use of [employer] voice recognition software, prone to medical misidentifications [...] next visit it any questions/concerns arise. 05/11/2025 Encounter for examination of blood pressure [...] Dictation was accomplished with the use of [employer] voice recognition software, prone to medical misidentifications [...] BLOOD COUNT) 05/11/2025 CBC (COMPLETE BLOOD COUNT) 06/16/2018 CBC (COMPLETE BLOOD COUNT) 06/16/2020 CBC (COMPLETE BLOOD COUNT) 10/20/2018 CBC (COMPLETE BLOOD COUNT) 09/21/2020 CBC (COMPLETE BLOOD COUNT) 12/27/2020 COMPREHENSIVE METABOLIC PANEL 09/21/2020 COMPREHENSIVE METABOLIC PANEL 12/27/2020 COMPREHENSIVE METABOLIC PANEL 10/20/2018 COMPREHENSIVE METABOLIC PANEL 06/16/2020 COMPREHENSIVE METABOLIC PANEL 06/16/2018 COMPREHENSIVE METABOLIC PANEL 05/11/2025 HEMOGLOBIN A1C 05/11/2025 HEMOGLOBIN A1C 06/16/2018 HEMOGLOBIN A1C 10/20/2018 HEMOGLOBIN A1C 09/21/2020 HEMOGLOBIN A1C 12/27/2020 LIPID PANEL 09/21/2020 LIPID PANEL 12/27/2020 LIPID PANEL 10/20/2018 LIPID PANEL 06/16/2020 LIPID PANEL 06/16/2018 LIPID PANEL 05/11/2025 OCCULT BLOOD SCREEN X [...] CBC (INCLUDES DIFF/PLT) 06/11/2022 CBC (INCLUDES DIFF/PLT) 11/13/2022 CBC (INCLUDES DIFF/PLT) 06/16/2024 CBC (INCLUDES DIFF/PLT) 07/22/2024 URINALYSIS, COMPLETE 11/13/2022 URINALYSIS, COMPLETE 06/11/2022 HEMOGLOBIN A1c 06/11/2022 TSH 06/16/2024 Next Appt Details Provider Name:Samanta Conn, 1 12/12/2024 10:00:00 AM, [address] [place] [address] [address], [place], [address], Insurance Providers Payer Name Payer Address Payer Phone Subscriber Number Group Number Insured Name Patient Relationship to Insured Coverage Start Date Coverage End Date Medicare Part B [id number] [address] [place] [address] [phone] [id number] JOSE MANUEL KAM Self - patient is the insured 3 [employer] [address] [place] [address] [id number] JOSE MANUEL KAM Self - patient is [...] Surgery Date(Month/Year) gastric lapband and removal colonoscopy 2017 right leg lipoma removal benign cervical fusion cardioversion for afib Dr Steward bilateral cataract December 21 [facility] epidural June 2024
--- OUTSIDE RECORDS SUMMARY | 2025-09-02 15:12 | XMS_ITS | Encounter Summary ---
Author Organization [facility] Address [address] [facility] [address] [place] [address] Phone Care Team Providers Care Boring Machine Operator Double End Name Role Phone Kirstin Brooks MD Primary Care Provider [phone] Krystyna Bowles MD, PhD Unavailable [phone] Kota Self MD Unavailable Audrey Bush MD, MPH Unavailable Renee Hood RN Unavailable Brina [email or web address]. Shreya Foster RN Unavailable [email or web address]. Francheska Scott RN Unavailable YOLA@ [facility].[facility] Prema Lee RN Unavailable Efe [email or web address].[facility] Shivam De Jesus MD, MINDI Unavailable [phone] Encounter Details Date Type Department Care Team (Late st Contact Info) Description 09/02/2025 Orders Only [facility] [place] [address] [facility], 11th [place] [address] Tiffanie Kauffman PA-C 44 [facility] [place] [address] Social History Tobacco Use Types Packs/Day Years [...] AM EDT Office Visit Adult Palliative Care, [facility] [place] [address] [facility], 11th [place] [address] Vibha Chavarria MD, [place] 450 [facility], Palliative Medicine JF 8 [place] [address] [email or web address] 11/23/2025 1:40 PM EST Blood Draw Laboratory Services, [facility] [place] [facility] [place] 300 [facility] 3rd [place] [address] Audrey Bush MD, MPH [address] [place] [address] [email or web address]@[email or web address] documented as of this encounter Visit Diagnoses Not on filedocumented in this encounter Care Teams Boring Machine Operator Double End Relationship Specialty Start Date End Date Kirstin Brooks MD [address] [place] [address] PCP - General Internal Medicine 01/03/22 Krystyna Bowles MD, PhD [address] [place] [address] [email or web address] U Radiation Oncology 07/25/23 Kota Self MD [address] [place] [address] [email or web address] u Radiation Oncology 09/03/23 Audrey Bush MD, MPH [address] [place] [address] NOE@[email or web address] Medical Oncology 09/03/23 Renee Hood, RN 300 [place] [address] [email or web address]@[facility] Primary Infusion Nurse 10/21/24 Shreya Waldron, ELANA 300 [place] [address] [email or web address] Associate Infusion Nurse 10/21/24 Francheska Jacobs, ELANA 300 [place] [address] YOLA@[facility] Associate Infusion Nurse 10/21/24 Prema Lee, ELANA 300 [place] [address] [email or web address]@[facility] Associate Infusion Nurse 01/19/25 Shivam De Jesus MD, MINDI [address] [place] [address] [email or web address] Diagnostic Radiology 03/23/25 documented as of this encounter Additional Source Comments The information contained in this document represents components of the legal health record. It is not the complete legal health record.[facility]
--- OUTSIDE RECORDS SUMMARY | 2025-09-02 15:12 | XMS_ITS | Encounter Summary ---
Author Organization [facility] Address [address] [employer] [facility] [address] [place] [address] Phone Care Team Providers Care National Account Representative Name Role Phone Kirstin Brooks MD Primary Care Provider [phone] Krystyna Bowles MD, PhD Unavailable [phone] Kota Self MD Unavailable Audrey Bush MD, MPH Unavailable Renee Hood RN Unavailable Brina [email or web address] Shreya Foster RN Unavailable [email or web address]. Francheska Scott RN Unavailable YOLA@ [facility].[place].[facility] Prema Lee RN Unavailable Efe [email or web address].[place].[facility] Shivam De Jesus MD, MINDI Unavailable [phone] Encounter Details Date Type Department Care Team (Late st Contact Info) Description 03/04/2025 Procedure Pass [facility] Cross Sectional Interventional Radiology [address] [place] [address] Social History Tobacco Use Types Packs/Day Years [...] Office Visit Adult Palliative Care, [facility] [place] [address] [place] [address], 11th [place] [address] Vibha Chavarria MD, MS 450 [facility], Palliative Medicine JF 8 [place] [address] [email or web address] 11/23/2025 1:40 PM EST Blood [facility], [facility] [place] [facility] [place] [address] [address] Audrey Bush MD, MPH [address] [place] [address] NOE@[facility] documented as of this encounter Visit Diagnoses Not on filedocumented in this encounter Care Teams National Account Representative Relationship Specialty Start Date End Date Kirstin Brooks MD [address] [place] [address] PCP - General Internal Medicine 01/03/22 Krystyna Bowles MD, PhD [address] [place] [address] [email or web address] U Radiation Oncology 07/25/23 Kota Self MD [address] [place] [address] [email or web address] u Radiation Oncology 09/03/23 Audrey Bush MD, MPH [address] [place] [address] NOE@[facility] Medical Oncology 09/03/23 Renee Hood, ELANA 300 [place] [address] [email or web address]@[email or web address] Primary Infusion Nurse 10/21/24 Shreya Waldron RN 300 [place] [address] [email or web address] Associate Infusion Nurse 10/21/24 Francheska Jacobs, RN 300 [place] [address] YOLA@[facility] Associate Infusion Nurse 10/21/24 Prema Lee RN 300 [place] [address] [email or web address]@[email or web address] Associate Infusion Nurse 01/19/25 Shivam De Jesus MD, MINDI [address] [place] [address] [email or web address]@[facility] Diagnostic Radiology 03/23/25 documented as of this encounter Additional Source Comments The information contained in this document represents components of the legal health record. It is not the complete legal health record.[facility]
--- OUTSIDE RECORDS SUMMARY | 2025-09-02 15:12 | XMS_ITS | Encounter Summary ---
Author Organization [facility] Address [address] [employer] [facility] [address] [place] [address] Phone Care Team Providers Care Suspect Artist Supervisor Name Role Phone Kirstin Brooks MD Primary Care Provider [phone] Krystyna Bowles MD, PhD Unavailable [phone] Kota Self MD Unavailable Audrey Bush MD, MPH Unavailable Renee Hood RN Unavailable Brina [email or web address].ED Shreya Foster RN Unavailable [email or web address]. Francheska Scott RN Unavailable YOLA@ [facility].[place].[facility] Prema Lee RN Unavailable Efe [email or web address].[place].[facility] Shivam De Jesus MD, MINDI Unavailable [phone] Encounter Details Date Type Department Care Team (Late st Contact Info) Description 09/27/2023 Procedure Pass [facility] MR Imaging, [place] [address] [place] [address] Social History Tobacco Use Types Packs/Day Years [...] AM EDT Office Visit Adult Palliative Care, [facility] [place] [address] [place] [address], 11th [place] [address] Vibha Chavarria MD, MS 450 [facility], Palliative Medicine JF 8 [place] [address] [email or web address] 11/23/2025 1:40 PM EST Blood Draw [facility], [facility] [place] [facility] [place] [address] [address] Audrey Bush MD, MPH [address] [place] [address] NOE@[facility] documented as of this encounter Visit Diagnoses Not on filedocumented in this encounter Additional Health Concerns Infection Onset Date Last Indicated Resolved Time COVID-19 Comment:Sx onset 09/18/23 Test 09/20/23 09/18/2023 09/19/2023 10/08/2023 1:[address] documented as of this encounter Care Teams Suspect Artist Supervisor Relationship Specialty Start Date End Date Kirstin Brooks MD [address] [place] [address] PCP - General Internal Medicine 01/03/22 Krystyna Bowles MD, PhD [address] [place] [address] [email or web address].ED U Radiation Oncology 07/25/23 Kota Self MD [address] [place] [address] [email or web address] u Radiation Oncology 09/03/23 Audrey Bush MD, MPH [address] [place] [address] NOE@[facility] Medical Oncology 09/03/23 Renee Hood, ELANA 300 [place] [address] Nguyen@[facility] Primary Infusion Nurse 10/21/24 Shreya Solomon, RN 300 [place] [address] [email or web address] Associate Infusion Nurse 10/21/24 Francheska Jacobs, ELANA 300 [place] [address] YOLA@[facility] Associate Infusion Nurse 10/21/24 Prema Lee RN 300 [place] [address] [email or web address]@[email or web address] Associate Infusion Nurse 01/19/25 Shivam De Jesus MD, MINDI [address] [place] [address] CHRIS@[email or web address] Diagnostic Radiology 03/23/25 documented as of this encounter Additional Source Comments The information contained in this document represents components of the legal health record. It is not the complete legal health record.[facility]
--- OUTSIDE RECORDS SUMMARY | 2025-09-02 15:12 | XMS_ITS ---
Author Organization [facility] Address [address] [employer] [facility] [address] [place] [address] Phone Care Team Providers Care Fish Trapper Name Role Phone Kirstin Brooks MD Primary Care Provider [phone] Krystyna Bowles MD, PhD Unavailable [phone] Kota Self MD Unavailable Audrey Bush MD, MPH Unavailable Renee Hood RN Unavailable Brina [email or web address].[place]. Shreya Foster RN Unavailable jose [email or web address]. Francheska Scott RN Unavailable YOLA@ [facility].[place].[facility] Pream Lee RN Unavailable Efe [email or web address].[facility] Shivam De Jesus MD, MINDI Unavailable [phone] Active Problems Problem Noted Date Diagnosed Date [...] mg Tab abiraterone (ZYTIGA) 250 mg Tab Other Current Plans ZOLEDRONIC ACID (RECLAST)* Plan Start Date:05/25/2025 Plan Provider:Tiffanie Kauffman PA-C Linked Problems Osteoporosis, unspecified os teoporosis type, unspecified pathological fracture presence Treatment Medications No medications scheduled. Past Treatment and Therapy Plans Oncology Therapy Plan Plan Name Start Date Discontinue Date Treatment Medications Discontinue Reason Plan Provider LEUPROLIDE ACETATE 3 MONTH (LUPRON DEPOT 3 MONTH) 05/22/2023 08/17/2025 leuprolide (LUPRON) a. Therapy Complete Audrey Bush MD, MPH Radiation Treatments * Course C2 09/12/2023 - [...]
== END 2025-09-02 14:02 | disposition home or self-care (01) ==
LOC: HO.ACS 13:41
PROVIDERS: PCP Internal Medicine; Visit Provider Internal Medicine Medical Oncology
DX: Z79.01 Long term (current) use of anticoagulants (principal)

== ENCOUNTER → 2025-09-02 13:41 | Outpatient (BNVA) | payer MEDICARE, SELFPAY | PROVIDERS: PCP Internal Medicine; Visit Provider Internal Medicine Medical Oncology | DX: Z51.81 Encounter for therapeutic drug level monitoring (principal); Z79.01 Long term (current) use of anticoagulants | CPT/HCPCS: 85610; 99211 ==

== ENCOUNTER 2025-10-18 09:49 | Outpatient (AMB) | payer MEDICARE, SELFPAY ==
--- NOTE | 2025-10-18 10:05 | MHC.OFFVISCO ---
Intake Intake Visit Reasons: Anticoagulation Allergies No Known Allergies Allergy (Verified 10/18/25 10:10) Medication List - Last Reconciled 10/18/25 by Donna Archer RN [CALCIUM PO] cholecalciferol (vitamin D3) (Vitamin D3) PO citalopram 20 mg PO DAILY diltiazem HCl CD 300 mg PO DAILY furosemide 40 mg PO DAILY levothyroxine 100 mcg PO DAILY losartan 100 mg PO DAILY metformin mg PO nitroglycerin 0.4 mg sublingual oxycodone mg PO pantoprazole 40 mg PO DAILY pravastatin mg PO prednisone 5 mg PO DAILY tizanidine 2 mg PO BEDTIME tramadol 50 mg PO BID PRN warfarin (Jantoven) 5 mg See Protocol PO DAILY Nursing Note INR: 1.4 out of therapeutic range of 2-3 Pt has held warfarin for past 3 days per instruction from dentist in prep for extraction of 2 teeth today Medications and supplements reviewed Patient status: no changes Medications or supplements: no changes other than warfarin hold Diet: usual diet for pt Denies any signs and symptoms of bleeding or clotting or unusual bruising Bleeding, bruising, clotting discussed Nutritional guidance given: to avoid greens until next INR check Dose: if able to resume warfarin today, pt will take usual dose of 2.5mg then increase tomorrow's dose of 5mg to 7.5mg then usual dose of 5mg X 4 days and 2.5mg X 3 days (M/W/F) F/U INR Date: 10/22/25?? Patient verbalizing understanding of instructions with read back given. T/C to pcp Dr Rebolledo. Spoke to Terrell. Critical INR reported with reason why and dosing plan with retest date. Coding Level of Care Code Est Patient Level 1 Diagnoses Current use of anticoagulant therapy Z79.01 Assessment & Plan Assessment & Plan (1) Current use of anticoagulant therapy: Code(s): Z79.01 - ocean transportation intermediary (current) use of anticoagulants Category: Medical
[2025-10-18 10:16] LABS: Prothrombin Time Whole Bld POC 16.4 sec (11.1-13.5); ~PT, ~INR - Anti Coag Clinic 1.4 (0.9-1.1)
== END 2025-10-18 10:31 | disposition home or self-care (01) ==
LOC: HO.ACS 09:49
PROVIDERS: PCP Internal Medicine; Visit Provider Internal Medicine Medical Oncology
DX: Z79.01 Long term (current) use of anticoagulants (principal)

== ENCOUNTER → 2025-10-18 09:49 | Outpatient (BNVA) | payer MEDICARE, SELFPAY | PROVIDERS: PCP Internal Medicine; Visit Provider Internal Medicine Medical Oncology | DX: Z79.01 Long term (current) use of anticoagulants (principal) | CPT/HCPCS: 85610; 99211 ==

== ENCOUNTER 2025-10-25 13:51 | Outpatient (AMB) | payer MEDICARE, SELFPAY ==
[2025-10-25 14:26] LABS: Prothrombin Time Whole Bld POC 23.2 sec (11.1-13.5); ~PT, ~INR - Anti Coag Clinic 1.9 (0.9-1.1)
--- NOTE | 2025-10-25 14:29 | MHC.OFFVISCO ---
Intake Intake Visit Reasons: Anticoagulation Allergies No Known Allergies Allergy (Verified 10/25/25 14:21) Medication List - Last Reconciled 10/25/25 by Donna Archer RN [CALCIUM PO] cholecalciferol (vitamin D3) (Vitamin D3) PO citalopram 20 mg PO DAILY diltiazem HCl CD 300 mg PO DAILY furosemide 40 mg PO DAILY levothyroxine 100 mcg PO DAILY losartan 100 mg PO DAILY metformin mg PO nitroglycerin 0.4 mg sublingual oxycodone mg PO pantoprazole 40 mg PO DAILY pravastatin mg PO prednisone 5 mg PO DAILY tizanidine 2 mg PO BEDTIME tramadol 50 mg PO BID PRN warfarin (Jantoven) 5 mg See Protocol PO DAILY Nursing Note INR: 1.9?? out of therapeutic range of 2-3 Medications and supplements reviewed Patient status: S/P dental extraction of 2 teeth with 3 day hold of warfarin Medications or supplements: no chaanges Diet: usual diet for pt but he has been holding greens Denies any signs and symptoms of bleeding or clotting or unusual bruising Bleeding, bruising, clotting discussed Nutritional guidance given: to hold greens today and have s serving of reds today Dose: increase today's dose to 5mg (2.5mg) then usual dose of 5mg X 4 days and 2.5mg X 3 days (M/W/F) F/U INR Date: 2 weeks?? Patient verbalizing understanding of instructions given. Coding Level of Care Code Est Patient Level 1 Diagnoses Current use of anticoagulant therapy Z79.01 Results AMB INR Fingerstick AMB INR Fingerstick 1.9 Last Edit by Donna Archer RN on 10/25/25 14:26 interface delay Assessment & Plan Assessment & Plan (1) Current use of anticoagulant therapy: Code(s): Z79.01 - halfway (current) use of anticoagulants Category: Medical
--- OUTSIDE RECORDS SUMMARY | 2025-10-25 18:46 | XMS_ITS | Encounter Summary ---
Author Organization [facility] Address [address] [employer] [facility] [address] [place] [address] Phone Care Team Providers Care Dental Appliance Mechanic Name Role Phone Kirstin Brooks MD Primary Care Provider [phone] Self-Referred, Patient Unavailable Unavailab Krystyna Kaiser MD, PhD Unavailable [phone] Kota Self MD Unavailable Audrey Bush MD , MPH Unavailable Renee Hood RN Unavailable Brina [email or web address].[place].[facility] Shreya Waldron RN Unavailable jose [email or web address] Francheska Jacobs RN Unavailable YOLA@ [facility].[place].[facility] Prema Lee RN Unavailable Efe [email or web address].[email or web address].[facility] Shivam De Jesus MD, MINDI Unavailable [phone] Encounter Details Date Type Department Care Team (Late st Contact Info) Description 05/10/2023 Procedure Pass [place] [place] [facility] [place], [place] 300 [facility] 4th [place] [address] Social History Tobacco Use Types [...] Care Team (Late st Contact Info) Description 11/23/2025 1:40 PM EST [facility] [place] [facility] [place] 300 [facility] 3rd [place] [address] Audrey Bush MD, MPH [address] [place] [address] NOE@[email or web address] documented as of this encounter Visit Diagnoses Not on filedocumented in this encounter Additional Health Concerns Infection Onset Date Last Indicated Resolved Time COVID-19 Comment:Sx onset 09/18/23 Test 09/20/23 09/18/2023 09/19/2023 10/08/2023 1:[address] documented as of this encounter Care Teams Dental Appliance Mechanic Relationship Specialty Start Date End Date Kirstin Brooks MD [address] [place] [address] PCP - General Internal Medicine 01/03/22 Self-Referred, Patient Referring Physician 04/18/23 09/02/23 Krystyna Bowles MD, PhD [address] [place] [address] [email or web address]@[email or web address].ED U Radiation Oncology 07/25/23 Kota Self MD [address] [place] [address] [email or web address] u Radiation Oncology 09/03/23 Audrey Bush MD, MPH [address] [place] [address] NOE@[facility] Medical Oncology 09/03/23 Renee Hood, ELANA [address] [place] [address] Nguyen@[facility] Primary Infusion Nurse 10/21/24 Shreya Waldron RN 300 [place] [address] [email or web address] Associate Infusion Nurse 10/21/24 Francheska Jacobs, ELANA [address] [place] [address] YOLA@[facility] Associate Infusion Nurse 10/21/24 Prema Lee RN [address] [place] [address] [email or web address] Associate Infusion Nurse 01/19/25 Shivam De Jesus MD, MINDI [address] [place] [address] [email or web address] Diagnostic Radiology 03/23/25 documented as of this encounter Additional Source Comments The information contained in this document represents components of the legal health record. It is not the complete legal health record.[facility]
--- OUTSIDE RECORDS SUMMARY | 2025-10-25 18:46 | XMS_ITS | Encounter Summary ---
Author Organization [facility] Address [address] [place] [address] Phone Care Team Providers Care Customer Project Manager Name Role Phone Kirstin Brooks MD Primary Care Provider [phone] Krystyna Bowles MD, PhD Unavailable [phone] Kota Self MD Unavailable Audrey Bush MD, MPH Unavailable Renee Hood RN Unavailable Brina [email or web address] U Shreya Waldron RN Unavailable [email or web address] Francheska Scott RN Unavailable YOLA@ [email or web address] Prema Lee RN Unavailable Efe [email or web address] Shivam De Jesus MD, MINDI Unavailable [phone] Encounter Details Date Type Department Care Team (Late st Contact Info) Description 12/17/2024 Telephone [employer] [address] Lucille [email or web address] u Social History Tobacco Use Types Packs/Day [...] 1:40 PM EST Blood Draw Laboratory Services, [facility] [place] [facility] [place] [address] [address] Audrey Bush MD, MPH [address] [place] [address] NOE@[facility] documented as of this encounter Visit Diagnoses Not on filedocumented in this encounter Care Teams Customer Project Manager Relationship Specialty Start Date End Date Kirstin Brooks MD [address] [place] [address] PCP - General Internal Medicine 01/03/22 Krystyna Bowles MD, PhD [address] [place] [address] [email or web address].ED U Radiation Oncology 07/25/23 Kota Self MD [address] [place] [address] [email or web address] u Radiation Oncology 09/03/23 Audrey Bush MD, MPH [address] [place] [address] NOE@[facility] Medical Oncology 09/03/23 Renee Hood, RN [address] [place] [address] [email or web address] Primary Infusion Nurse 10/21/24 Shreya Waldron RN 300 [place] [address] [email or web address] Associate Infusion Nurse 10/21/24 Francheska Jacobs, ELANA [address] [place] [address] YOLA@[facility] Associate Infusion Nurse 10/21/24 Prema Lee, ELANA [address] [place] [address] [email or web address]@[facility] Associate Infusion Nurse 01/19/25 Shivam De Jesus MD, MINDI [address] [place] [address] CHRIS@[facility] Diagnostic Radiology 03/23/25 documented as of this encounter Additional Source Comments The information contained in this document represents components of the legal health record. It is not the complete legal health record.[facility]
--- OUTSIDE RECORDS SUMMARY | 2025-10-25 18:46 | XMS_ITS ---
Author Organization [facility] Address [address] [employer] [facility] [address] [place] [address] Phone Care Team Providers Care Airport Security Screener Name Role Phone Kirstin Brooks MD Primary Care Provider [phone] Krystyna Bowles MD, PhD Unavailable [phone] Kota Self MD Unavailable Audrey Bush MD, MPH Unavailable Renee Hood RN Unavailable Brina [email or web address].[place]. Shreya Foster RN Unavailable [email or web address]. Francheska Scott RN Unavailable YOLA@ [facility].[facility] Prema Lee RN Unavailable Efe [email or web address].[place].[facility] Shivam De Jesus MD, MINDI Unavailable [phone] Active Problems Problem Noted Date Diagnosed Date [...]
--- OUTSIDE RECORDS SUMMARY | 2025-10-25 18:46 | XMS_ITS | Encounter Summary ---
Author Organization [facility] Address [address] [facility] [address] [place] [address] Phone Care Team Providers Care Supervisor Coating Name Role Phone Kirstin Brooks MD Primary Care Provider [phone] Krystyna Bowles MD, PhD Unavailable [phone] Kota Self MD Unavailable Audrey Bush MD, MPH Unavailable Renee Hood RN Unavailable Brina [email or web address] Shreya Foster RN Unavailable [email or web address]. Francheska Scott RN Unavailable [email or web address]@ [email or web address] Prema Lee RN Unavailable Efe [email or web address] Shivam De Jesus MD, MINDI Unavailable [phone] Encounter Details Date Type Department Care Team (Late st Contact Info) Description 09/27/2023 Procedure Pass [facility] MR Imaging, [place] [address] [place] [address] Social History Tobacco Use Types Packs/Day Years [...] 1:40 PM EST Blood Draw Laboratory Services, [facility] [place] [facility] [place] [address] [address] Audrey Bush MD, MPH [address] [place] [address] [email or web address] documented as of this encounter Visit Diagnoses Not on filedocumented in this encounter Additional Health Concerns Infection Onset Date Last Indicated Resolved Time COVID-19 Comment:Sx onset 09/18/23 Test 09/20/23 09/18/2023 09/19/2023 10/08/2023 1:[address] documented as of this encounter Care Teams Supervisor Coating Relationship Specialty Start Date End Date Kirstin Brooks MD [address] [facility] [address] [place] [address] PCP - General Internal Medicine 01/03/22 Krystyna Bowles MD, PhD [address] [place] [phone] [email or web address] U Radiation Oncology 07/25/23 Kota Self MD [address] [place] [phone] [email or web address] Radiation Oncology 09/03/23 Audrey Bush MD, MPH [address] [place] [address] [email or web address] Medical Oncology 09/03/23 Renee Hood RN [address] [place] [address] [email or web address] Primary Infusion Nurse 10/21/24 Shreya Solomon RN 300 [place] [address] [email or web address] Associate Infusion Nurse 10/21/24 Francheska Jacobs RN 300 [place] [address] [email or web address] Associate Infusion Nurse 10/21/24 Prema Lee RN [address] [place] [address] [email or web address] [email or web address].[facility] Associate Infusion Nurse 01/19/25 Shivam De Jesus MD, MINDI [address] [place] [address] [email or web address] Diagnostic Radiology 03/23/25 documented as of this encounter Additional Source Comments The information contained in this document represents components of the legal health record. It is not the complete legal health record.[facility]
--- OUTSIDE RECORDS SUMMARY | 2025-10-25 18:46 | XMS_ITS | Encounter Summary ---
Author Organization [facility] Address [address] [facility] [address] [place] [address] Phone Care Team Providers Care Occupational Hygienist Name Role Phone Kirstin Brooks MD Primary Care Provider [phone] Krystyna Bowles MD, PhD Unavailable [phone] Kota Self MD Unavailable Audrey Bush MD, MPH Unavailable Renee Hood RN Unavailable Brina [email or web address] Shreya Foster RN Unavailable [email or web address] Francheska Scott RN Unavailable [email or web address]@ [email or web address].[facility] Prema Lee RN Unavailable Efe [email or web address] Shivam De Jesus MD, MINDI Unavailable [phone] Encounter Details Date Type Department Care Team (Late st Contact Info) Description 03/04/[address] [facility] Cross Sectional Interventional Radiology [address] [place] [address] Social History Tobacco Use Types Packs/Day Years [...] 1:40 PM EST Blood Draw Laboratory Services, [facility] [place] [facility] [place] [address] [facility] [address] [place] [address] Audrey Bush MD, MPH [address] [place] [address] [email or web address] documented as of this encounter Visit Diagnoses Not on filedocumented in this encounter Care Teams Occupational Hygienist Relationship Specialty Start Date End Date Kirstin Brooks MD [address] [place] [address] [address] [place] [address] PCP - General Internal Medicine 01/03/22 Krystyna Bowles MD, PhD [address] [place] [phone] [email or web address] U Radiation Oncology 07/25/23 Kota Self MD [address] [place] [address] [email or web address] Radiation Oncology 09/03/23 Audrey Bush MD, MPH [address] [place] [phone] [email or web address]. [facility] Medical Oncology 09/03/23 Renee Hood, RN [address] [place] [phone] [email or web address] Primary Infusion Nurse 10/21/24 Shreya Waldron RN [address] [place] [address] [email or web address] Associate Infusion Nurse 10/21/24 Francheska Jacobs, ELANA [address] [place] [address] [email or web address] Associate Infusion Nurse 10/21/24 Prema Lee, ELANA [address] [place] [phone] [email or web address] Associate Infusion Nurse 01/19/25 Shivam De Jesus MD, MINDI [address] [place] [phone] (work) [email or web address] Diagnostic Radiology 03/23/25 documented as of this encounter Additional Source Comments The information contained in this document represents components of the legal health record. It is not the complete legal health record.[facility]
--- OUTSIDE RECORDS SUMMARY | 2025-10-25 18:46 | XMS_ITS | Clinical Summary ---
Author Organization [facility] Address [address] [place] [address] Care Team Providers Care Wholesaler Name Role Phone Kirstin Brooks MD Primary Care Provider [phone] Allergies Active Allergy Reactions Criticality Noted Date [...] age to complete this topic Care Teams Wholesaler Relationship Specialty Start Date End Date Kirstin Brooks MD [address] [place] [address] PCP - General Internal Medicine 03/11/19 KIM LANDAVERDE Referring Physician Orthopedic Surgery 12/26/15
--- OUTSIDE RECORDS SUMMARY | 2025-10-25 18:46 | XMS_ITS | Clinical Summary ---
Author Organization [facility] Address [address] [place] [address] Phone Care Team Providers Care Music Therapy Teacher Name Role Phone Kirstin Brooks MD Primary Care Provider [phone] Allergies No known active allergies Medications tiZANidine (ZANAFLEX) 2 mg tablet Sig - Route: Take 1 Tablet by mouth at bedtime. Active predniSONE (DELTASONE) 5 mg tablet Take 1 tablet (5 mg total) by mouth 1 (one) time each day. 4 Active abiraterone (ZYTIGA) 500 mg Take 2 Tablets by mouth daily. For Prostate CA Active leuprolide (LUPRON) 11.25 mg injection Inject into the muscle Every 3 Months. For Prostate CA Active acetaminophen (TYLENOL) 500 mg tablet Take 600 mg by mouth. Active pantoprazole (PROTONIX) 40 mg EC tablet Take 1 tablet (40 mg total) by mouth 1 (one) time each day. 3 Active losartan (COZAAR) 100 mg tablet Take [...] 5 (five) minutes if needed. Active calcium carbonate-hattie min D3 500 mg-15 mcg (600 unit) tablet Sig - Route: Take 1 Tablet by mouth 2 times daily (with meals). Active warfarin (COUMADIN) 5 mg tablet 1 tablet (5 mg total) 1 (one) time each day at the same time. [facility] 5 Active dilTIAZem CD (CARDIZEM CD) 300 mg 24 hr capsule TAKE 1 CAPSULE DAILY 90 capsule 3 5 Active dilTIAZem CD (CARDIZEM CD) 300 mg 24 hr capsule TAKE 1 CAPSULE DAILY 90 capsule 1 5 025 Discontinued Active Problems Problem Noted Date Diagnosed Date Syncope and collapse 08/23/2025 Assessment & Plan (08/24/2025 12:25 PM EDT): Orders: Vascular US abdominal aorta aneurysm (AAA) screening; Future Dyspnea on exertion 08/28/2021 Heart failure with preserved ejection fraction ([facility] V24, [facility] V28) 08/28/2021 HLD (hyperlipidemia) 02/21/2021 PVC's (premature ventricular contractions) 02/21 Assessment & Plan (08/24/2025 12:25 PM EDT): Orders: ECG 12 lead Vascular US abdominal aorta aneurysm (AAA) screening; Future HTN (hypertension) 12/29/2020 PAF (paroxysmal atrial fibri llation) ([facility] V24, [facility] V28) 12/29/2020 Type II or unspecified type diabetes mellitus with ketoacidosis, uncontrolled(250.12) ([facility] V24, [facility] V28) 12/29/2020 Encounters Date Type Department Care Team Description 10/01/2025 Telephone [facility] [address] [place] [phone] Luis Correa MD 09/20/2025 11:54 AM EDT - 09/20/2025 11:59 PM EDT Hospital Encounter [facility] [address] [place] [phone] Pain in thoracic spine; Low back pain Discharge Disposition: Home or Self Care 09/20/2025 11:53 AM EDT - 09/20/2025 11:59 PM EDT Hospital Encounter [facility] [address] [place] [phone] Pain in thoracic spine; Low back pain Discharge Disposition: Home or Self Care 08/24/2025 10:35 AM EDT Office Visit [address] [place] [phone] Luis Correa MD PVC's (premature ventricular contractions) (Primary Dx); Permanent atrial fibrillation ([facility] V24, [facility] V28); Syncope and collapse; History of tobacco abuse 08/10/2025 Telephone [facility] [address] [place] [phone] Luis Correa MD from Last 3 Months Immunizations Immunization Administration Dates Next Due Pfizer SARS-CoV-2 COVID-19, mRNA, LNP-S, preservative free 01/12/2021,12/22/2020 Surgical History Surgery Date Site/Laterality Comments GASTRIC BAND ADJUSTMENT and removal CARDIOVERSION CARDIAC ABLATION CERVICAL FUSION Medical History Medical History Date Comments Hypertension Hyperlipidemia Diabetes mellitus ([facility] V 24, [facility] V28) GERD (gastroesophageal reflux disease) Atrial fibrillation ([facility] V24, [facility] V28) Sleep apnea COPD (chronic obstructive pu lmonary disease) ([facility] V24, [facility] V28) Asthma Prostate cancer ([facility] V24, [facility] V28) Type 2 diabetes mellitus (CM S/HCC V24, CMS/HCC V28) without complication, withou t long-term current [...] Care Team (Late st Contact Info) Description 11/11/2025 8:30 AM EST Ancillary Procedure [facility] [address] [place] [phone] 02/23/2026 3:00 PM EDT Office Visit Pulmonology - [place] [address] [place] [phone] Irma Patterson MD [address] [place] [phone] Health Maintenance Due Date Last Done Comments Diabetes: Annual Foot Exam 1965 Diabetes: Annual Retina Eye Exam 1965 Pneumococcal Vaccine: 50+ Years (1 of 2 - PCV) 1974 Abdominal Aortic Aneurysm (AAA) Screen 11/04/2022 Falls Risk Assessment 11/04/2022 Hepatitis C Screening 11/04/2022 Medicare Annual Wellness Visit 11/04/2022 Social Influencers of Health Screening 11/04/2022 Depression Screening 12/02/2024 Diabetes: Blood Sugar Control Test (HGBA1C) 01/29/2026 07/29/2025 COVID-19 Vaccine (9 - Pfizer risk season) 2026 08/09/2025, 09/15/2024, 12/06/2023, Additional history exists Diabetes: Annual Urine Albumin-Creatinine Ratio (uACR) 07/29/2026 [...] Vaccines Completed 06/09/2024, 04/07/2024 Influenza Vaccine Completed 08/09/2025, , 10/10/2023, Additional [...] Comments XR THORACIC SPINE 2 VIEWS Routine 09/20/2025 12:17 PM EDT Pain in thoracic spine Low back pain XR LUMBAR SPINE 2-3 VIEWS Routine 09/20/2025 12:17 PM EDT Pain in thoracic spine Low back pain ECG 12-LEAD Routine 08/24/2025 10:34 AM EDT PVC's (premature ventricular contractions) CBC WITH AUTO DIFFERENTIAL Routine 07/29/2025 9:36 AM EDT Diabetes mellitus (CMS/HCC V24, CMS/[facility] V28) Hyperlipemia Routine general medical examination at [...] Routine 07/29/2025 9:36 AM EDT Diabetes mellitus ([facility], [facility] V28) Hyperlipemia Routine general medical examination at a health care facility HEMOGLOBIN A1C Routine 07/29/2025 9:36 AM EDT Diabetes mellitus ([facility] V24, [facility] V28) Hyperlipemia Routine general medical examination at a health care facility URINALYSIS WITH REFLEX MICROSCOPIC AND CULTURE Routine 07/29/2025 9:36 AM EDT Diabetes mellitus ([facility] V24, [facility] V28) Hyperlipemia Routine general medical examination at a health care facility COLONOSCOPY Routine 10/14/2024 9:58 AM EST Hemorrhage of rectum and anus from Last 3 Months or Most Recently Relevant to Health Maintenance Results * XR Lumbar Spine 2-3 Views (09/20/2025 12:17 PM EDT) Anatomical Region Laterality Modality Spine, L-spine Radiographic Andie ging 09/21/2025 8:51 AM EDT Impressions 09/21/2025 8:54 AM EDT Wedge compression fracture T12 and L3, new since 02/16/2025 but otherwise of unknown chronicity. Grade 1, 6.5 mm anterior spondylolisthesis of L3 relative to L4 and grade 1, 4.6 mm anterior spondylolisthesis of L5 relative to L5 are stable. Degenerative disc disease at L4-5 and L5-S1 is again demonstrated. -------- FINAL REPORT -------- Dictated By: Gregory Reyes Dictated Date: 09/21/2025 08:51 ET Assigned Physician: Gregory Reyes Reviewed and Electronically Signed By: Gregory Reyes Signed Date: 09/21/2025 08:54 ET Workstation ID: [id number] Transcribed By: Self Edit Transcribed Date: 09/21/2025 08:51 ET Narrative 09/21/2025 8:54 AM EDT HISTORY: The patient is a 70-year-old male with low back pain following a fall 2010 days previously. FINDINGS: AP, lateral, and coned-down spot lateral views of the lumbosacral spine again demonstrate grade 1, 6.5 mm anterior spondylolisthesis of L3 relative to L4 and grade 1, 4.6 mm anterior spondylosis of L4 relative to L5, unchanged since the prior study. There is a mild wedge compression fracture of L3, new since the prior study but otherwise of unknown chronicity. Also new since the prior study is a moderate wedge compression fracture T12. Again seen is narrowing of the L4-5 and L5-S1 disc spaces consistent with degenerative disc disease. Extensive atherosclerotic arterial calcification is again noted. Procedure Note Gregory Reyes MD - 09/21/2025 HISTORY: The patient is a 70-year-old male with low back pain following afall 2010 days previously. FINDINGS: AP, lateral, and coned-down spot lateral views of thelumbosacral spine again demonstrate grade 1, 6.5 mm anteriorspondylolisthesis of L3 relative to L4 and grade 1, 4.6 mm anteriorspondylosis of L4 relative to L5, unchanged since the prior study. Thereis a mild wedge compression fracture of L3, new since the prior study butotherwise of unknown chronicity. Also new since the prior study is amoderate wedge compression fracture T12. Again seen is narrowing of theL4-5 and L5-S1 disc spaces consistent with degenerative disc disease. Extensive atherosclerotic arterial calcification is again noted. IMPRESSION: Wedge compression fracture T12 and L3, new since 02/16/2025 but otherwiseof unknown chronicity. Grade 1, 6.5 mm anterior spondylolisthesis of [id number] to L4 and grade 1, 4.6 mm anterior spondylolisthesis of [id number] to L5 are stable. Degenerative disc disease at L4-5 and L5-S1 isagain demonstrated. -------- FINAL REPORT -------- Dictated By: Gregory Reyes Dictated Date: 09/21/2025 08:51 ET Assigned Physician: Gregory Reyes Reviewed and Electronically Signed By: Gregory Reyes Signed Date: 09/21/2025 08:54 ET Workstation ID: [id number] Transcribed By: Self Edit Transcribed Date: 09/21/2025 08:51 ET Samanta Thomas JAGUAR IMG XR PROCEDURES Final Result * XR Thoracic Spine 2 Views (09/20/2025 12:17 PM EDT) Anatomical Region Laterality Modality Spine, T-spine Radiographic Andie ging 09/21/2025 8:50 AM EDT Impressions 09/21/2025 8:51 AM EDT No acute findings and no change since 06/09/2025. The patient is again seen to have undergone percutaneous augmentation of a severe compression fracture of T8. -------- FINAL REPORT -------- Dictated By: Gergory Reyes Dictated Date: 09/21/2025 08:50 ET Assigned Physician: Gregory Reyes Reviewed and Electronically Signed By: Gregory Reyes Signed Date: 09/21/2025 08:51 ET Workstation ID: [id number] Transcribed By: Self Edit Transcribed Date: 09/21/2025 08:50 ET Narrative 09/21/2025 8:51 AM EDT HISTORY: The patient is a 70-year-old male with upper back pain 10 days following a fall. FINDINGS: AP and lateral radiographs of the thoracic spine demonstrate that the patient has undergone previous percutaneous augmentation of a severe compression fracture of the T8 vertebral body, as also seen on the prior study performed 06/09/2025. No new fracture is seen. Alignment is anatomic. Degenerative osteophytes are present throughout the thoracic spine. Procedure Note Gregory Reyes MD - 09/21/2025 HISTORY: The patient is a 70-year-old male with upper back pain 10 daysfollowing a fall. FINDINGS: AP and lateral radiographs of the thoracic spine demonstratethat the patient has undergone previous percutaneous augmentation of asevere compression fracture of the T8 vertebral body, as also seen on theprior study performed 06/09/2025. No new fracture is seen. Alignment isanatomic. Degenerative osteophytes are present throughout the thoracicspine. IMPRESSION: No acute findings and no change since 06/09/2025. The patient is again seento have undergone percutaneous augmentation of a severe compressionfracture of T8. -------- FINAL REPORT -------- Dictated By: Gregory Reyes Dictated Date: 09/21/2025 08:50 ET Assigned Physician: Gregory Reyes Reviewed and Electronically Signed By: Gregory Reyes Signed Date: 09/21/2025 08:51 ET Workstation ID: [id number] Transcribed By: Self Edit Transcribed Date: 09/21/2025 08:50 ET us Samanta MONTESINOS IMG XR PROCEDURES Final Result * ECG 12 lead (08/24/2025 10:34 AM EDT) Pathologist [facility] Ventricular Rate ECG 102 BPM GEMUSE Atrial Rate 100 BPM GEMUSE QRS Duration 100 ms GEMUSE Q-T Interval 374 ms GEMUSE QTc 487 ms GEMUSE R [place] 52 degrees GEMUSE T [place] -31 degrees GEMUSE ECG Interpretation Atrial fibrillation [...] Correa MD ECG ORDERABLES Final Resu lt GEMUSE * (ABNORMAL) Urinalysis with reflex microscopic and culture (07/29/2025 9:36 AM EDT) [facility] Specific [place] Urine 1.008 1.003 - 1.030 LAB URINALYSIS - AUTOMATED METHOD 07/29/2025 11:43 AM EDT [facility] pH, Urine 7.0 5.0 - 8.0 pH LAB URINALYSIS - AUTOMATED METHOD 07/29/2025 11:43 AM EDT [facility] Leukocytes, Urine Negative Negative LAB URINALYSIS - AUTOMATED METHOD 07/29/2025 11:43 AM [facility] Nitrite, Urine Negative Negative LAB URINALYSIS - AUTOMATED METHOD 07/29/2025 11:43 AM [facility] Protein, Urine Negative <=Trace mg/dL LAB URINALYSIS - AUTOMATED METHOD 07/29/2025 11:43 AM [facility] Glucose, Urine Negative Negative mg/dL LAB URINALYSIS - AUTOMATED METHOD 07/29/2025 11:43 AM [facility] Ketones, Urine Negative Negative mg/dL LAB URINALYSIS - AUTOMATED METHOD 07/29/2025 11:43 AM [facility] Urobilinogen, Urine 0.2 0.2 - 1.0 mg/dL LAB URINALYSIS - AUTOMATED METHOD 07/29/2025 11:43 AM [facility] Bilirubin, Urine Negative Negative LAB URINALYSIS - AUTOMATED METHOD 07/29/2025 11:43 AM [facility] Blood, Urine Trace(A) Negative LAB URINALYSIS - AUTOMATED METHOD 07/29/2025 11:43 AM [facility] RBC, Urine 3.7 0 - 4 /HPF LAB URINALYSIS - AUTOMATED METHOD 07/29/2025 11:43 AM [facility] WBC, Urine 0.1 0 - 4 /HPF LAB URINALYSIS - AUTOMATED METHOD 07/29/2025 11:43 AM [facility] Squamous Epithelial, Urine 7 0 - 60 /LPF LAB URINALYSIS - AUTOMATED METHOD 07/29/2025 11:43 AM [facility] Bacteria, Urine Negative Negative /HPF LAB URINALYSIS - AUTOMATED METHOD 07/29/2025 11:43 AM [facility] Hyaline Casts, Urine 0.0 0 - 3 /LPF LAB URINALYSIS - AUTOMATED METHOD 07/29/2025 11:43 AM [facility] Urine Urine specimen obtained by clean catch procedure / Unknown Non-blood Collection / Unknown 07/29/2025 9:36 AM EDT 07/29/2025 11:31 AM EDT Samanta MONTESINOS LAB URINE ORDERABLES Final Resul t Performing Organization Address [facility]/ZIP Co de Phone Number [facility] [address] [place] [address], [place] [phone] * Carter urine culture tube (07/29/2025 9:36 AM EDT) Extra Tube Hold for add-ons. 07/29/2025 1:01 PM EDT [facility] Comment:Auto resulted. Urine Urine specimen obtained by clean catch procedure / Unknown Non-blood Collection / Unknown 07/29/2025 9:36 AM EDT 07/29/2025 11:30 AM EDT Samanta Thomas [place] LAB URINE ORDERABLES Final Resul t Performing Organization Address [facility]/ZIP Co de Phone Number [facility] [address] [place] [address], [place] [phone] * Lipid panel with reflex to direct LDL (07/29/2025 9:36 AM EDT) Cholesterol 124 0 - 200 mg/dL LAB CHEMISTRY METHOD 07/29/2025 10:46 AM EDT [facility] Triglycerides 125 0 - 150 mg/dL LAB CHEMISTRY METHOD 07/29/2025 10:46 AM EDT [facility] HDL 44 >=40 mg/dL LAB CHEMISTRY METHOD 07/29/2025 10:46 AM EDT [facility] LDL Calculated 55 0 - 100 mg/dL LAB CHEMISTRY METHOD 07/29/2025 10:46 AM EDT [facility] Comment:Estimated LDL Calcul ated using equation: Total cholesterol - HDL cholesterol - (Triglycerides/5) VLDL Cholesterol Yoshi 25 mg/dL LAB CHEMISTRY METHOD 07/29/2025 10:46 AM T [facility] Non HDL Chol. (LDL+VLDL) 80 <145 mg/dL LAB CHEMISTRY METHOD 07/29/2025 10:46 AM [facility] Chol/HDL Ratio 2.8 0.0 - 4.4 LAB CHEMISTRY METHOD 07/29/2025 10:46 AM [facility] Blood Venous blood specimen / Unknown Venipuncture / Unknown 07/29/2025 9:36 AM EDT 07/29/2025 9:48 AM EDT Samanta MONTESINOS LAB BLOOD ORDERABLES Final Resul t [facility] [address] [place] [address], * (ABNORMAL) CBC auto differential (07/29/2025 9:36 AM EDT) WBC 7.1 4.8 - 10.8 K/mcL LAB HEMETOLOGY METHOD 07/29/2025 10:08 AM [facility] RBC 4.30(L) 4.50 - 5.50 M/mcL LAB HEMETOLOGY METHOD 07/29/2025 10:08 AM [facility] Hemoglobin 12.7(L) 13.5 - 17.5 g/dL LAB HEMETOLOGY METHOD 07/29/2025 10:08 AM [facility] Hematocrit 40.6(L) 42.0 - 54.0 % LAB HEMETOLOGY METHOD 07/29/2025 10:08 AM [facility] MCV 95.1 79.0 - 98.0 FL LAB HEMETOLOGY METHOD 07/29/2025 10:08 AM [facility] MCH 29.7 27.0 - 32.0 pcg LAB HEMETOLOGY METHOD 07/29/2025 10:08 AM [facility] MCHC 31.3(L) 32.0 - 37.0 g/dL LAB HEMETOLOGY METHOD 07/29/2025 10:08 AM [facility] RDW 14.0 11.0 - 15.0 % LAB HEMETOLOGY METHOD 07/29/2025 10:08 AM [facility] Platelets 251 130 - 400 K/mcL LAB HEMETOLOGY METHOD 07/29/2025 10:08 AM [facility] MPV 9.6 7.0 - 11.0 FL LAB HEMETOLOGY METHOD 07/29/2025 10:08 AM [facility] NRBC 0.0 <1.0 % LAB HEMETOLOGY METHOD 07/29/2025 10:08 AM [facility] NRBC Absolute 0.00 <0.10 K/mcL LAB HEMETOLOGY METHOD 07/29/2025 10:08 AM [facility] Neutrophils Relative 72.3 % LAB HEMETOLOGY METHOD 07/29/2025 10:08 AM [facility] Lymphocytes Relative 15.0 % LAB HEMETOLOGY METHOD 07/29/2025 10:08 AM [facility] Monocytes Relative 8.7 % LAB HEMETOLOGY METHOD 07/29/2025 10:08 AM [facility] Eosinophils Relative 2.5 % LAB HEMETOLOGY METHOD 07/29/2025 10:08 AM [facility] Basophils Relative 1.1 % LAB HEMETOLOGY METHOD 07/29/2025 10:08 AM [facility] Immature Granulocytes Relative 0.4 % LAB HEMETOLOGY METHOD 07/29/2025 10:08 AM [facility] Neutrophils Absolute 5.12 1.50 - 7.00 K/mcL LAB HEMETOLOGY METHOD 07/29/2025 10:08 AM EDT [facility] Lymphocytes Absolute 1.06 1.00 - 5.00 K/[facility] LAB HEMETOLOGY METHOD 07/29/2025 10:08 AM EDT [facility] Monocytes Absolute 0.62 0.20 - 1.00 K/[facility] LAB HEMETOLOGY METHOD 07/29/2025 10:08 AM EDT [facility] Eosinophils Absolute 0.18 0.00 - 0.50 K/[facility] LAB HEMETOLOGY METHOD 07/29/2025 10:08 AM EDT [facility] Basophils Absolute 0.08 0.00 - 0.20 K/[facility] LAB HEMETOLOGY METHOD 07/29/2025 10:08 AM EDT [facility] Immature Granulocytes Absolute 0.03 0.00 - 0.03 K/[facility] LAB HEMETOLOGY METHOD 07/29/2025 10:08 AM EDT [facility] Blood Venous blood specimen / Unknown Venipuncture / Unknown 07/29/2025 9:36 AM EDT 07/29/2025 9:48 AM EDT Samanta MONTESINOS LAB BLOOD ORDERABLES Final Resul t [facility] [address] [place] [address], * (ABNORMAL) Microalbumin creatinine urine ratio (07/29/2025 9:36 AM EDT) Creatinine, Urine 42.0 mg/dL LAB CHEMISTRY METHOD 07/29/2025 2:20 PM EDT [facility] Microalb, Ur 30.4(H) 0.0 - 29.0 mg/L LAB CHEMISTRY METHOD 07/29/2025 2:20 PM EDT [facility] Microalb/Crea t Ratio 72(H) <30 mg/g creat LAB CHEMISTRY METHOD 07/29/2025 2:20 PM EDT [facility] Urine Urine specimen obtained by clean catch procedure / Unknown Non-blood Collection / Unknown 07/29/2025 9:36 AM EDT 07/29/2025 11:31 AM EDT Samanta MONTESINOS LAB URINE ORDERABLES Final Resul t Performing Organization Address City/[facility]/ZIP Co de Phone Number [facility] [address] [place] [address], [place] [phone] * Hemoglobin A1c (07/29/2025 9:36 AM EDT) Pathologist [facility] Hemoglobin A1C 6.0 <6.5 % LAB CHEMISTRY METHOD 07/29/2025 1:59 PM EDT [facility] Mean Bld Glu Estim. 126 mg/dL LAB CHEMISTRY METHOD 07/29/2025 1:59 PM EDT [facility] Blood Venous blood specimen / Unknown Venipuncture / Unknown 07/29/2025 9:36 AM EDT 07/29/2025 9:48 AM EDT Samanta MONTESINOS LAB BLOOD ORDERABLES Final Resul t Performing Organization Address [facility]/ZIP Mi de Phone Number [facility] [address] [place] [address], [place] [phone] * (ABNORMAL) Comprehensive metabolic panel (07/29/2025 9:36 AM EDT) Pathologist [facility] Sodium 142 133 - 145 mmol/L LAB CHEMISTRY METHOD 07/29/2025 10:46 AM EDT [facility] Potassium 4.3 3.5 - 5.5 mmol/L LAB CHEMISTRY METHOD 07/29/2025 10:46 AM EDT [facility] Chloride 107 96 - 110 mmol/L LAB CHEMISTRY METHOD 07/29/2025 10:46 AM EDT [facility] CO2 28 21 - 32 mmol/L LAB CHEMISTRY METHOD 07/29/2025 10:46 AM [facility] Anion Gap 7 3 - 11 LAB CHEMISTRY METHOD 07/29/2025 10:46 AM [facility] Glucose 110(H) 70 - 100 mg/dL LAB CHEMISTRY METHOD 07/29/2025 10:46 AM [facility] BUN 11 5 - 25 mg/dL LAB CHEMISTRY METHOD 07/29/2025 10:46 AM [facility] Creatinine 1.26 0.70 - 1.30 mg/dL LAB CHEMISTRY METHOD 07/29/2025 10:46 AM [facility] eGFR 62 >=60 mL/min/1. 73m2 LAB CHEMISTRY METHOD 07/29/2025 10:46 AM [facility] Comment:Calculation based on the Chronic Kidney Disease Epidemiology Collaboration (CKD-EPI) equation refit without adjustment for race. BUN/Creatinine Ratio 8.7 LAB CHEMISTRY METHOD 07/29/2025 10:46 AM [facility] Calcium 9.5 8.5 - 10.5 mg/dL LAB CHEMISTRY METHOD 07/29/2025 10:46 AM [facility] AST (SGOT) 17 10 - 42 unit/L LAB CHEMISTRY METHOD 07/29/2025 10:46 AM [facility] ALT (SGPT) 17 10 - 60 unit/L LAB CHEMISTRY METHOD 07/29/2025 10:46 AM [facility] Alkaline Phosphatase 94 42 - 121 unit/L LAB CHEMISTRY METHOD 07/29/2025 10:46 AM [facility] Total Protein 7.0 6.0 - 8.0 g/dL LAB CHEMISTRY METHOD 07/29/2025 10:46 AM [facility] Albumin 3.9 3.2 - 5.0 g/dL LAB CHEMISTRY METHOD 07/29/2025 10:46 AM [facility] Total Bilirubin 0.6 0.0 - 1.4 mg/dL LAB CHEMISTRY METHOD 07/29/2025 10:46 AM EDT [facility] Blood Venous blood specimen / Unknown Venipuncture / Unknown 07/29/2025 9:36 AM EDT 07/29/2025 9:48 AM EDT Samanta MONTESINOS LAB BLOOD ORDERABLES Final Resul t [facility] ([facility]) [facility] [address] [place] [address], [place] [phone] * COLONOSCOPY Anesthesia - MAC; [facility] ENDOSCOPY (10/14/2024 9:58 AM EST) Anatomical [...] days. Narrative 10/14/2024 10:01 AM EST [facility] GI Patient Name: Jose Manuel Kam [...] verified by the physician, the nurse, the demurrage agent and the plating technician in the pre-procedure area in the [...] was minimal. Procedure Code(s): --- Professional --- 69324, 59, Colonoscopy, flexible; with control of bleeding, any method 14951, Colonoscopy, flexible; with removal of tumor(s), polyp(s), or other lesion(s) by snare technique Diagnosis Code(s): --- Professional --- D12.3, Benign neoplasm of transverse colon (hepatic flexure or splenic flexure) K92.1, Melena (includes Hematochezia) CPT copyright 2020 [employer]. All rights reserved. The codes documented in this report are preliminary and upon pre coder review may be revised to meet current compliance requirements. Garcia Vigil MD 10/14/2024 10:01:37 AM This report has been signed electronically.Garcia Vigil MD Number of Addenda: 0 Note Initiated On: 10/14/2024 9:30 AM Scope Withdrawal Time: 0 hours 17 minutes 21 seconds Scope In: 9:36:33 AM Scope Out: 9:57:43 AM Endoscopy Department at [facility] - [address] [place] [id number] Procedure Note Garcia Vigil MD - 10/14/2024 [facility] GI Patient Name: Jose Manuel Kam [...] the physician, the nurse, theanesthetist and the plating technician in the pre-procedure area in the [...] loss wasminimal. Procedure Code(s): --- Professional --- 33876, 59, Colonoscopy, flexible; with control of bleeding, any method 24193, Colonoscopy, flexible; with removal of tumor(s), polyp(s), or other lesion(s) by snare technique Diagnosis Code(s): --- Professional --- D12.3, Benign neoplasm of transverse colon (hepatic flexure or splenic flexure) K92.1, Melena (includes Hematochezia) CPT copyright 2020 [employer]. All rights reserved. The codes documented in this report are preliminary and upon pre coder reviewmay be revised to meet current compliance requirements. Garcia Vigil MD 10/14/2024 10:01:37 AM This report has been signed electronically.Garcia Vigil MD Number of Addenda: 0 Note Initiated On: 10/14/2024 9:30 AM Scope Withdrawal Time: 0 hours 17 minutes 21 seconds Scope In: 9:36:33 AM Scope Out: 9:57:43 AM Endoscopy Department at [facility] - [address] [place] [phone] IMPRESSION: - Three 2 to 6 mm [...] Recently Relevant to Health [place] [id number] MEDICARE [facility] [place] [id number] Care Teams Music Therapy Teacher Relationship Specialty Start Date End Date Kirstin Brooks MD [address] [place] [address] [place] [address] PCP - General Internal Medicine 01/11/25
--- OUTSIDE RECORDS SUMMARY | 2025-10-25 18:46 | XMS_ITS | Clinical Summary ---
Author Organization [facility] Address [address] [facility] [address] [place] [address] Phone Care Team Providers Care Collar Stay Fuser Tender Name Role Phone Kirstin Brooks MD Primary Care Provider [phone] Krystyna Bowles MD, PhD Unavailable [phone] Kota Self MD Unavailable Audrey Bush MD, MPH Unavailable Renee Hood RN Unavailable [email or web address] Shreya Foster RN Unavailable [email or web address] Francheska Scott RN Unavailable [email or web address]@ [email or web address] Prema Lee RN Unavailable Efe [email or web address] Shivam De Jesus MD, MINDI Unavailable [phone] Allergies Active Allergy Reactions Criticality Noted Date [...] mg by mouth daily. Active Ca cit-D3-mag#11-zi [id number]-[id number]-bor (CALTRATE 600+D) 600 mg calcium- 800 unit-50 [...] Encounters Date Type Department Care Team Description 10/14/2025 12:45 PM EST Telemedicine [facility] Department of Neurosurgery [address] [place] [address] Aman Low MD, MPH Spinal stenosis of lumbar region, unspecified whether neurogenic claudication present (Primary Dx) 10/07/2025 Ancillary Orders [facility]'s Radiology [address] [place] [address] Aman Low MD, MPH 10/05/2025 Ancillary Procedure [facility] Radiology [address] [place] [address] Aman Low MD, MPH 09/24/2025 Orders Only [facility] Department of Neurosurgery [address] [place] [address] Tori Oconnell, MELANY Lumbosacral spinal stenosis (Primary Dx); Spondylolisthesis of thoracolumbar region 09/02/2025 Orders Only [facility], [facility] [address] [place] [address] Tiffanie Kauffman PA-C 08/17/2025 11:53 AM EDT - 08/17/2025 11:59 PM EDT Hospital Encounter Department of Radiation Oncology [address] [place] [address] Krystyna Bowles MD, PhD Discharge Disposition: Home or Self Care 08/17/2025 11:00 AM EDT Infusion Infusion Therapy Services [facility] [place] at [address] [address] Audrey Bush MD, MPH Shreya Solomon RN 08/17/2025 10:00 AM EDT Office Visit [facility] for Genitourinary Oncology, [facility] at [address] [address] Tiffanie Kauffman PA-C Morgans, Alicia Katherine, MD, [...] 1:40 PM EST Blood Draw Laboratory Services, [facility] [place] [facility] [place] [address] [place] [address] Audrey Bush MD, MPH [address] [place] [address] [email or web address] Health Maintenance Due Date Last [...] SCREENING 01/14/2026 01/14/2025 HEMOGLOBIN A1C 01/29/2026 07/29/2025 COVID-19 VACCINE ( season) 2026 08/09/2025, 09/15/2024, 12/06/2023, Additional history exists BLOOD PRESSURE 02/14/2026 08/17/2025 CREATININE LEVEL 08/17/2026 08/17/2025, , 01/19/2025, Additional history exists POTASSIUM LEVEL 08/17/2026 08/17/2025, 05/02, 01/19/2025, Additional history exists Adult Td,Tdap Booster 03/05/2028 03/05/2018 RSV VACCINE Completed 10/29/2023 ZOSTER VACCINES Completed 06/09/2024, 04/07/2024 SMOKING STATUS SCREENING (Once After 26 Yrs) Completed 03/22/2025 INFLUENZA VACCINE Completed 08/09/2025, , 10/10/2023, Additional [...] this topic Medical Devices Implanted Type Area Deputy Editor In Chief Device Identifier Shelf Expiration Date Model / Serial / Lot Kit Mixing [employer] - [id number] Implanted:Qty: 1 on 03/22/2025 by Shivam De Jesus MD, MINDI at [employer] Left: Spine Thoracic [employer] . S / / [id number] Kit Mixing [employer] - [id number] Implanted:Qty: 1 on 03/22/2025 by Shivam De Jesus MD, MINDI at [employer] Right: Spine Thoracic [employer] .017 S / / [id number] Procedures Procedure Name Priority Date/Time Associated Diagnosis Comments MRI SPINE NEUROLOGIC FOCUS OUTSIDE (NO INTERPRETATION) Routine 10/05/2025 12:00 AM EST 25-OH VITAMIN D Routine 08/17/2025 8:55 AM [...] AM EDT Prostate cancer COMPREHENSIVE METABOLIC PANEL (CMP) Routine 08/17/2025 8:55 AM EDT Prostate cancer HC BLOOD COUNT COMPLETE AUTO&AUTO DIFRNTL WBC Routine 08/17/2025 8:55 AM EDT Prostate cancer THYROID STIMULATING HORMONE (TSH) Routine 02/12/2024 9:36 AM EDT Prostate cancer from Last 3 Months or Most Recently Relevant to Health Maintenance Results * MRI Spine (Neuro) Outside (No Interpretation) (10/05/2025 12:00 AM EST) Narrative LILLIAN - 10/07/2025 1:34 PM EST This study is for PACS storage only and not for interpretation. us Aman Madsen Chi, MD, MPH IMG OUTSIDE IMAGING W/OUT INT ERPRETATION Final Result [facility] * (ABNORMAL) Comprehensive metabolic panel (08/17/2025 8:55 AM EDT) SODIUM 142 136 - 145 mmol/L [facility] POTASSIUM 3.7 3.4 - 5.1 mmol/L [facility] CHLORIDE 105 98 - 107 mmol/L [facility] CO2 23 22 - 31 mmol/L [facility] BUN 17 6 - 23 mg/dL [facility] CREATININE 1.09 0.50 - 1.20 mg/dL [facility] GLUCOSE 111(H) 70 - 100 mg/dL [facility] ALBUMIN 4.2 3.5 - 5.2 g/dL [facility] TOTAL PROTEIN 7.6 6.4 - 8.3 g/dL [facility] CALCIUM 9.6 8.8 - 10.7 mg/dL [facility] ALKALINE PHOSPHATASE 104 40 - 129 U/L [facility] TOTAL BILIRUBIN 0.5 0.2 - 1.2 mg/dL [facility] AST 16 <41 U/L [facility] ALT 11 <42 U/L [facility] GLOBULIN 3.4 2.3 - 4.2 g/dL [facility] EGFR 73 >59 mL/min/1.7 3m2 [facility] Comment:Estimated glomerular filtration rate calculated using the CKD-EPI refit equation. ANION GAP 14 7 - 17 mmol/L [facility] Blood 08/17/2025 8:55 AM EDT 08/17/2025 8:56 AM EDT us Tiffanie Kauffman PA-C LAB BLOOD BKR ORDERABLES Fi nal Result [facility] [address] [place] [address], [facility] * PSA diagnostic (monitoring) (08/17/2025 8:55 AM EDT) [facility] PSA Monitoring <0.02 0.00 - 4.00 ng/mL [facility] Blood 08/17/2025 8:55 AM EDT 08/17/2025 8:56 AM EDT Tiffanie Garciaspl PA-C LAB BLOOD BKR ORDERABLES Fi nal Result Performing Organization Address City/[facility]/ZIP Co de Phone Number [facility] [address] [place] [address], [facility] * 25-OH vitamin D (08/17/2025 8:55 AM EDT) Pathologist [facility] 25 OH VIT D (TOTAL) 37 20 - 50 ng/mL [facility] Comment: <10 ng/mL Severe deficiency 10-19 ng/mL Mild to moderate deficiency 20-50 ng/ml [facility] levels 51-80 ng/mL Increased risk of hypercalciuria >80 ng/mL Toxicity possible Blood 08/17/2025 8:55 AM EDT 08/17/2025 8:56 AM EDT Tiffanie Huntl PA-C LAB BLOOD BKR ORDERABLES Fi nal Result Performing Organization Address City/[facility]/ZIP Co de Phone Number [facility] [address] [place] [address] * (ABNORMAL) CBC and differential (08/17/2025 8:55 AM EDT) [facility] WBC 6.89 4.00 - 10.00 K/uL [facility] RBC 4.35(L) 4.50 - 6.40 M/uL [facility] HGB 13.0(L) 13.5 - 18.0 g/dL [facility] HCT 40.4 40.0 - 54.0 % [facility] PLT 239 150 - 450 K/uL [facility] MCV 92.9 80.0 - 100.0 fL [facility] MCH 29.9 27.0 - 32.0 pg [facility] MCHC 32.2 32.0 - 36.0 g/dL [facility] RDW 13.8 11.5 - 14.5 % [facility] MPV 9.4 8.4 - 12.0 fL [facility] NRBC 0.00 0.00 /100 WBCs [facility] ABSOLUTE NRBC 0.00 0 K/uL [facility] DIFF METHOD Auto [facility] NEUTS 78.4(H) 48.0 - 76.0 % [facility] LYMPHS 10.2(L) 18.0 - 41.0 % [facility] MONOS 8.1 4.0 - 11.0 % [facility] EOS 2.3 0.0 - 5.0 % [facility] BASOS 0.7 0.00 - 1.50 % [facility] % IMMATURE GRANS 0.3 0.00 - 1.00 % [facility] ABSOLUTE NEUTS 5.40 1.92 - 7.60 K/uL [facility] ABSOLUTE LYMPHS 0.70(L) 0.72 - 4.10 K/uL [facility] ABSOLUTE MONOS 0.56 0.16 - 1.10 K/uL [facility] ABSOLUTE EOS 0.16 0.00 - 0.50 K/uL [facility] ABSOLUTE BASOS 0.05 0.00 - 0.15 K/uL [facility] ABS IMMATURE GRANS 0.02 0.00 - 0.10 K/uL [facility] Blood 08/17/2025 8:55 AM EDT 08/17/2025 8:56 AM EDT us Tiffanie Kauffman PA-C LAB BLOOD BKR ORDERABLES Fi nal Result [facility] [address] [place] [address], [facility] * (ABNORMAL) Testosterone, total (08/17/2025 8:55 AM EDT) TESTOSTERONE <3(L) 193 - 740 ng/dL [facility] Blood 08/17/2025 8:55 AM EDT 08/17/2025 8:56 AM EDT us Tiffanie Draper Nuspl PA-C LAB BLOOD BKR ORDERABLES Fi nal Result Performing Organization Address City/[facility] Co de Phone Number [address] * Phosphorus (08/17/2025 8:55 AM EDT) PHOSPHORUS 4.0 2.5 - 4.5 mg/dL [facility] Blood 08/17/2025 8:55 AM EDT 08/17/2025 8:56 AM EDT us Tiffanie Draper Nuspl PA-C LAB BLOOD BKR ORDERABLES Fi nal Result Performing Organization Address [facility] Co de Phone Number [address] * Magnesium (08/17/2025 8:55 AM EDT) MAGNESIUM 1.9 1.7 - 2.6 mg/dL [facility] Blood 08/17/2025 8:55 AM EDT 08/17/2025 8:56 AM EDT us Tiffanie Draper Nuspl PA-C LAB BLOOD BKR ORDERABLES Fi nal Result Performing Organization Address City/[facility] de Phone Number [address] * TSH (02/12/2024 9:36 AM EDT) TSH 1.81 0.27 - 4.20 uIU/mL [facility] LIC# [id number] Blood 02/12/2024 9:36 AM EDT 02/12/2024 9:39 AM EDT Sunita Goode Sampson CHILD WELFARE ASSISTANT LAB BLOOD BKR ORDERAB LES Final Result [facility]# [id number] [address] [place] [address], [facility] from Last 3 Months or Most Recently Relevant to Health Maintenance Insurance [employer] MEDICARE PART A & B [employer] SU[employer] MEDICARE PART A & B [employer] SU[employer] MEDICARE PART A & B [employer] SU[employer] MEDICARE PART A & B [employer] MED[employer] SUPPLEMENT MEDICARE PART A & B [employer]it [employer] MEDEX SUPPLEMENT MEDICARE PART A & B [employer]it [employer] MEDEX SUPPLEMENT MEDICARE PART A & B [employer] SUPPLEMENT MEDICARE PART A & B [employer]it [employer] SUPPLEMENT MEDICARE PART A & B Care Teams Collar Stay Fuser Tender Relationship Specialty Start Date End Date Kirstin Brooks MD [address] [place] [address] PCP - General Internal Medicine 01/03/22 Krystyna Bowles MD, PhD [address] [place] [address] [email or web address] [email or web address] Oncology 07/25/23 Kota Self MD [address] [place] [address] [email or web address] Radiation Oncology 09/03/23 Audrey Bush MD, MPH [address] [place] [phone] [email or web address] [facility] Medical Oncology 09/03/23 Renee Hood RN [address] [place] [address] [email or web address] Primary Infusion Nurse 10/21/24 Shreya Solomon RN [address] [place] [address] [email or web address] Associate Infusion Nurse 10/21/24 Francheska Jacobs, ELANA [address] [place] [address] [email or web address] Associate Infusion Nurse 10/21/24 Prema Lee RN [address] [place] [address] [email or web address] Associate Infusion Nurse 01/19/25 Shivam De Jesus MD, MINDI [address] [place] [phone] [email or web address] Diagnostic Radiology 03/23/25 Additional Source Comments The information contained in this document represents components of the legal health record. It is not the complete legal health record.[facility]
== END 2025-10-25 14:33 | disposition home or self-care (01) ==
LOC: HO.ACS 13:51
PROVIDERS: PCP Internal Medicine; Visit Provider Internal Medicine Medical Oncology
DX: Z79.01 Long term (current) use of anticoagulants (principal)

== ENCOUNTER → 2025-10-25 13:51 | Outpatient (BNVA) | payer MEDICARE, SELFPAY | PROVIDERS: PCP Internal Medicine; Visit Provider Internal Medicine Medical Oncology | DX: I48.91 Unspecified atrial fibrillation (principal); Z51.81 Encounter for therapeutic drug level monitoring; Z79.01 Long term (current) use of anticoagulants | CPT/HCPCS: 85610; 99211 ==

== ENCOUNTER 2025-11-08 13:43 | Outpatient (AMB) | payer MEDICARE, SELFPAY ==
[2025-11-08 13:59] LABS: Prothrombin Time Whole Bld POC 34.3 sec (11.1-13.5); ~PT, ~INR - Anti Coag Clinic 2.9 (0.9-1.1)
--- NOTE | 2025-11-08 14:11 | MHC.OFFVISCO ---
Intake Intake Visit Reasons: Anticoagulation Allergies No Known Allergies Allergy (Verified 11/08/25 13:46) Medication List - Last Reconciled 11/08/25 by Ivana Ritchie RN [CALCIUM PO] cholecalciferol (vitamin D3) (Vitamin D3) PO citalopram 20 mg PO DAILY diltiazem HCl CD 300 mg PO DAILY furosemide 40 mg PO DAILY levothyroxine 100 mcg PO DAILY losartan 100 mg PO DAILY metformin mg PO nitroglycerin 0.4 mg sublingual oxycodone mg PO pantoprazole 40 mg PO DAILY pravastatin mg PO tizanidine 2 mg PO BEDTIME tramadol 50 mg PO BID PRN warfarin (Jantoven) 5 mg See Protocol PO DAILY Nursing Note INR: 2.9 in therapeutic range Medications and supplements reviewed No changes in health, diet, medications, or supplements, - PT MAY CHANGE SUPPLEMENTS TO D3K2 FOR HIS BONE DENSITY/HEALTH HE WILL NOTIFY [facility] IF HE CHANGES SO INR CAN BE MONITORED Denies any signs and symptoms of bleeding or bruising or clotting. Bleeding, bruising, clotting discussed Nutritional guidance given Dose:KEEP SAME DOSE FOR NOW 2.5MG MWF/ 5MG X 4 DAYS FOR NOW AND ENC TO EAT GREENS WEEKLY F/U INR: 11/29/25 Patient verbalizes understanding of instructions given Coding Level of Care Code Est Patient Level 1 Diagnoses Current use of anticoagulant therapy Z79.01 Assessment & Plan Assessment & Plan (1) Current use of anticoagulant therapy: Code(s): Z79.01 - salvage determiner (current) use of anticoagulants Category: Medical Medications: New [magnesium] PO
--- OUTSIDE RECORDS SUMMARY | 2025-11-08 22:30 | XMS_ITS ---
Author Organization [facility] Address [address] [facility] [address] [place] [address] Phone Care Team Providers Care Tunnel Man Name Role Phone Kirstin Brooks MD Primary Care Provider [phone] Krystyna Bowles MD, PhD Unavailable [phone] Kota Self MD Unavailable Audrey Bush MD, MPH Unavailable Renee Hood RN Unavailable Brina [email or web address]. Shreya Foster RN Unavailable [email or web address] Francheska Scott RN Unavailable YOLA@ [email or web address].[place].[email or web address] Prema Lee RN Unavailable Efe [email or web address] Shivam De Jesus MD, MINDI Unavailable [phone] Active Problems Problem Noted Date Diagnosed Date [...]
--- OUTSIDE RECORDS SUMMARY | 2025-11-08 22:30 | XMS_ITS | Clinical Summary ---
Author Organization [facility] Prior to 05/01/25 Address [address] [place] [address] Care Team Providers Care Internet Marketing Director Name Role Phone Kirstin Brooks MD Primary Care Provider [phone] Allergies Active Allergy Reactions Criticality Noted Date [...] age to complete this topic Care Teams Internet Marketing Director Relationship Specialty Start Date End Date Kirstin Brooks MD [address] [place] [address] PCP - General Internal Medicine 03/11/19 KIM LANDAVERDE Referring Physician Orthopedic Surgery 12/26/15
--- OUTSIDE RECORDS SUMMARY | 2025-11-08 22:30 | XMS_ITS | Encounter Summary ---
Author Organization [facility] Address [address] [facility] [address] [place] [address] Phone Care Team Providers Care Electric Solderer Name Role Phone Kirstin Brooks MD Primary Care Provider [phone] Krystyna Bowles MD, PhD Unavailable [phone] Kota Self MD Unavailable Audrey Bush MD, MPH Unavailable Renee Hood RN Unavailable Brina [email or web address] Shreya Foster RN Unavailable [email or web address] Francheska Scott RN Unavailable YOLA@ [email or web address] Prema Lee RN Unavailable Efe [email or web address] Shivam De Jesus MD, MINDI Unavailable [phone] Encounter Details Date Type Department Care Team (Late st Contact Info) Description 03/04/2025 Procedure Pass [facility] Cross Sectional Interventional Radiology [address] [place] [address] Social History Tobacco Use Types Packs/Day Years [...] EST Blood Draw Laboratory Services, [facility] [place] [facility] [place] [address] [facility] [address] [place] [address] Audrey Bush MD, MPH [address] [place] [address] [email or web address] documented as of this encounter Visit Diagnoses Not on filedocumented in this encounter Care Teams Electric Solderer Relationship Specialty Start Date End Date Kirstin Brooks MD [address] [place] [address] [address] [place] [address] PCP - General Internal Medicine 01/03/22 Krystyna Bowles MD, PhD [address] [place] [address] [email or web address] U Radiation Oncology 07/25/23 Kota Self MD [address] [place] [address] [email or web address] Radiation Oncology 09/03/23 Audrey Bush MD, MPH [address] [place] [phone] [email or web address]. [facility] Medical Oncology 09/03/23 Renee Hood, RN [address] [place] [address] [email or web address] Primary Infusion Nurse 10/21/24 Shreya Waldron RN [address] [place] [address] [email or web address] Associate Infusion Nurse 10/21/24 Francheska Jacobs, ELANA [address] [place] [address] [email or web address] Associate Infusion Nurse 10/21/24 Prema Lee, ELANA [address] [place] [address] [email or web address] Associate Infusion Nurse 01/19/25 Shivam De Jesus MD, MINDI [address] [place] [phone] (work) [email or web address] Diagnostic Radiology 03/23/25 documented as of this encounter Additional Source Comments The information contained in this document represents components of the legal health record. It is not the complete legal health record.[facility]
--- OUTSIDE RECORDS SUMMARY | 2025-11-08 22:30 | XMS_ITS | Clinical Summary ---
Author Organization [facility] Address [address] [place] [address] Phone Care Team Providers Care Plant Manager Name Role Phone Kirstin Brooks MD Primary Care Provider [phone] Allergies No known active allergies Medications tiZANidine [...] time each day at the same time. HCC 11/20/2015 Active dilTIAZem CD (CARDIZEM CD) 300 mg 24 hr capsule TAKE 1 CAPSULE DAILY 90 capsule 3 10/04/2025 Active Active Problems Problem Noted Date Diagnosed [...] Future HTN (hypertension) 12/29/2020 PAF (paroxysmal atrial fibrillation) 12/29/2020 Type II or unspecified type diabetes mellitus with ketoacidosis, uncontrolled(250.12) 12/29/2020 Encounters Date Type Department Care Team Description 10/01/2025 Telephone [facility] - [address] [place] [address] Luis Correa MD 09/20/2025 11:54 AM EDT - 09/20/2025 11:59 PM EDT Hospital Encounter [facility] [address] [place] [phone] Pain in thoracic spine; Low back pain Discharge Disposition: Home or Self Care 09/20/2025 11:53 AM EDT - 09/20/2025 11:59 PM EDT Hospital Encounter [facility] [address] [place] [phone] Pain in thoracic spine; Low back pain Discharge Disposition: Home or Self Care 08/24/2025 10:35 AM EDT Office Visit [facility] - [facility] [address] [place] [phone] Luis Correa MD PVC's (premature ventricular contractions) (Primary Dx); Permanent atrial fibrillation ([facility] V24, [facility] V28); Syncope and collapse; History of tobacco abuse 08/10/2025 Telephone [facility] - [address] [place] [phone] Luis Correa MD from Last 3 Months Immunizations Immunization Administration Dates Next Due Pfizer SARS-CoV-2 COVID-19, mRNA, LNP-S, preservative free 01/12/2021,12/22/2020 Surgical History Surgery Date Site/Laterality Comments GASTRIC BAND ADJUSTMENT and removal CARDIOVERSION CARDIAC ABLATION CERVICAL FUSION Medical History Medical History Date Comments Hypertension Hyperlipidemia Diabetes mellitus ([facility] V 24, [facility] V28) GERD (gastroesophageal reflux disease) Atrial fibrillation ([facility] V24, [facility] V28) Sleep apnea COPD (chronic obstructive pu lmonary disease) ([facility] V24, [facility] V28) Asthma Prostate cancer ([facility] V24, [facility] V28) Type 2 diabetes mellitus ( [facility] V24, [facility] V28) without complication, withou t long-term current [...] Description 11/11/2025 8:30 AM EST Ancillary Procedure [facility] - [facility] [address] [place] [phone] 02/23/2026 3:00 PM EDT Office Visit Pulmonology - [place] [address] [facility] [address] [place] [phone] Irma Patterson MD [address] [place] [address] Health Maintenance Due Date Last Done [...] 10:34 AM EDT PVC's (premature ventricular contractions) MICROALBUMIN CREATININE URINE RATIO Routine 07/29/2025 9:36 AM EDT Diabetes mellitus (CMS/HCC V24, CMS/HCC V28) Hyperlipemia Routine [facility] COMPREHENSIVE METABOLIC PANEL Routine 07/29/2025 9:36 AM EDT Diabetes mellitus (CMS/HCC V24, CMS/HCC V28) Hyperlipemia Routine general medical examination at a [facility] HEMOGLOBIN A1C Routine 07/29/2025 9:36 AM EDT Diabetes mellitus (CMS/HCC V24, CMS/HCC V28) Hyperlipemia Routine general medical examination at a [facility] facility LIPID PANEL WITH REFLEX TO DIRECT LDL Routine 07/29/2025 9:36 AM EDT Diabetes mellitus (CMS/HCC V24, CMS/HCC V28) Hyperlipemia Routine general medical examination at a [facility] COLONOSCOPY Routine 10/14/2024 9:58 [...] Signed Date: 09/21/2025 08:54 ET Workstation ID: [id number] Transcribed By: Self Edit Transcribed Date: 09/21/2025 [...] Grade 1, 6.5 mm anterior spondylolisthesis of S2ddxopcfr to L4 and grade 1, 4.6 mm anterior spondylolisthesis of E2ihdlysns to L5 are stable. Degenerative disc disease at L4-5 and L5-S1 isagain demonstrated. -------- FINAL REPORT -------- Dictated By: Gregory Reyes Dictated Date: 09/21/2025 08:51 ET Assigned Physician: Gregory Reyes Reviewed and Electronically Signed By: Gregory Reyes Signed Date: 09/21/2025 08:54 ET Workstation ID: [id number] Transcribed By: Self Edit Transcribed Date: 09/21/2025 08:51 ET Samanta MONTESINOS IMG XR PROCEDURES Final [...] Signed Date: 09/21/2025 08:51 ET Workstation ID: [id number] Transcribed By: Self Edit Transcribed Date: 09/21/2025 [...] Signed Date: 09/21/2025 08:51 ET Workstation ID: [id number] Transcribed By: Self Edit Transcribed Date: 09/21/2025 08:50 ET us Samanta MONTESINOS IMG XR PROCEDURES Final Result * ECG 12 lead (08/24/2025 10:34 AM EDT) Ventricular Rate ECG 102 BPM GEMUSE Atrial Rate 100 BPM GEMUSE QRS Duration 100 ms GEMUSE Q-T Interval 374 ms GEMUSE QTc 487 ms GEMUSE R [place] 52 degrees GEMUSE T [place] -31 degrees GEMUSE ECG Interpretation Atrial fibrillation [...] ECG ORDERABLES Final Resu lt GEMUSE * Lipid panel with reflex to direct LDL (07/29/2025 9:36 AM EDT) Cholesterol 124 0 - 200 mg/dL LAB CHEMISTRY METHOD 07/29/2025 10:[address] [facility] Triglycerides 125 0 - 150 mg/dL LAB CHE[facility]STR[facility] HDL 44 >=40 mg/dL LAB CHEMISTRY METHOD 07/29/2025 10:[address] [facility] LDL Calculated 55 0 - 100 mg/dL LAB CHEMISTRY METHOD 07/29/2025 10:[address] [facility] Comment:Estimated LDL Calcul ated using equation: Total cholesterol - HDL cholesterol - (Triglycerides/5) VLDL Cholesterol Yoshi 25 mg/dL LAB CHEMISTRY METHOD 07/29/2025 10:46 AM [facility] Non HDL Chol. (LDL+VLDL) 80 <145 mg/dL LAB CHEMISTRY METHOD 07/29/2025 10:46 AM [facility] Chol/HDL Ratio 2.8 0.0 - 4.4 LAB CHEMISTRY METHOD 07/29/2025 10:46 AM [facility] Blood Venous blood specimen / Unknown Venipuncture / Unknown 07/29/2025 9:36 AM EDT 07/29/2025 9:48 AM EDT Samanta MONTESINOS LAB BLOOD ORDERABLES Final Resul t [facility] [address] [place] [address], * (ABNORMAL) Microalbumin creatinine urine ratio (07/29/2025 9:36 AM EDT) Creatinine, Urine 42.0 mg/dL LAB CHEMISTRY METHOD 07/29/2025 2:[address] [facility] Microalb, Ur 30.4(H) 0.0 - 29.0 mg/L LAB CHEMISTRY METHOD 07/29/2025 2:[address] [facility] Microalb/Crea t Ratio 72(H) <30 mg/g creat LAB CHEMISTRY METHOD 07/29/2025 2:[address] [facility] Urine Urine specimen obtained by clean catch procedure / Unknown Non-blood Collection / Unknown 07/29/2025 9:36 AM EDT 07/29/2025 11:31 AM EDT Samanta MONTESINOS LAB URINE ORDERABLES Final Resul t Performing Organization Address [facility]/ZIP Co de Phone Number [facility] [address] [place] [address], [place] [phone] * Hemoglobin A1c (07/29/2025 9:36 AM EDT) Hemoglobin A1C 6.0 <6.5 % LAB CHEMISTRY METHOD 07/29/2025 1:[address] [facility] Mean Bld Glu Estim. 126 mg/dL LAB CHEMISTRY METHOD 07/29/2025 1:[address] [facility] Blood Venous blood specimen / Unknown Venipuncture / Unknown 07/29/2025 9:36 AM EDT 07/29/2025 9:48 AM EDT Samanta MONTESINOS LAB BLOOD ORDERABLES Final Resul t Performing Organization Address City/[facility]/ZIP Co de Phone Number [facility] [address] [place] [address], [place] [phone] * COLONOSCOPY Anesthesia - [facility]; [facility] ENDOSCOPY (10/14/2024 9:58 AM EST) [...] 5 days. Narrative 10/14/2024 10:01 AM EST [facility] Patient Name: Jose Manuel Kam [...] verified by the physician, the nurse, the newscast producer and the roadway technician in the pre-procedure area in the [...] was minimal. Procedure Code(s): --- Professional --- 53339, 59, Colonoscopy, flexible; with control of bleeding, any method 37883, Colonoscopy, flexible; with removal of tumor(s), polyp(s), or other lesion(s) by snare technique Diagnosis Code(s): --- Professional --- D12.3, Benign neoplasm of transverse colon (hepatic flexure or splenic flexure) K92.1, Melena (includes Hematochezia) CPT copyright 2020 [employer]. All rights reserved. The codes documented in this report are preliminary and upon laborer chemical processing review may be revised to meet current compliance requirements. Garcia Vigil MD 10/14/2024 10:01:37 AM This report has been signed electronically.Garcia Vigil MD Number of Addenda: 0 Note Initiated On: 10/14/2024 9:30 AM Scope Withdrawal Time: 0 hours 17 minutes 21 seconds Scope In: 9:36:33 AM Scope Out: 9:57:43 AM Endoscopy Department at [facility] - [address] [place] [phone] Procedure Note Garcia Vigil MD - 10/14/2024 [facility] Patient Name: Jose Manuel Kam [...] the physician, the nurse, theanesthetist and the roadway technician in the pre-procedure area in the [...] loss wasminimal. Procedure Code(s): --- Professional --- 57938, 59, Colonoscopy, flexible; with control of bleeding, any method 49714, Colonoscopy, flexible; with removal of tumor(s), polyp(s), or other lesion(s) by snare technique Diagnosis Code(s): --- Professional --- D12.3, Benign neoplasm of transverse colon (hepatic flexure or splenic flexure) K92.1, Melena (includes Hematochezia) CPT copyright 2020 [employer]. All rights reserved. The codes documented in this report are preliminary and upon laborer chemical processing reviewmay be revised to meet current compliance requirements. Garcia Vigil MD 10/14/2024 10:01:37 AM This report has been signed electronically.Garcia Vigil MD Number of Addenda: 0 Note Initiated On: 10/14/2024 9:30 AM Scope Withdrawal Time: 0 hours 17 minutes 21 seconds Scope In: 9:36:33 AM Scope Out: 9:57:43 AM Endoscopy Department at [facility] - [address] [place] [phone] IMPRESSION: - Three 2 to 6 mm [...] Recently Relevant to Health Maintenance Insurance MEDICARE [facility] [place] [place] [id number] Care Teams Plant Manager Relationship Specialty Start Date End Date Kirstin Brooks MD [address] [place] [address] [place] [address] PCP - General Internal Medicine 01/11/25
--- OUTSIDE RECORDS SUMMARY | 2025-11-08 22:30 | XMS_ITS | Encounter Summary ---
Author Organization [facility] Address [address] [place] [address] Phone Care Team Providers Care Incubator Operator Name Role Phone Kirstin Brooks MD Primary Care Provider [phone] Krystyna Bowles MD, PhD Unavailable [phone] Kota Self MD Unavailable Audrey Bush MD, MPH Unavailable Renee Hood RN Unavailable [email or web address] U Shreya Waldron RN Unavailable [email or web address] Francheska Scott RN Unavailable [email or web address] Prema Lee RN Unavailable Efe [email or web address] Shivam De Jesus MD, MINDI Unavailable [phone] Encounter Details Date Type Department Care Team (Late st Contact Info) Description 12/17/2024 Telephone [facility]'[address] [address] Lucille [email or web address] Social History Tobacco Use Types Packs/Day [...] 1:40 PM EST [facility], [facility] [place] [facility] [place] [address] [address] Audrey Bush MD, MPH [address] [place] [address] [email or web address] documented as of this encounter Visit Diagnoses Not on filedocumented in this encounter Care Teams Incubator Operator Relationship Specialty Start Date End Date Kirstin Brooks MD [address] [place] [address] PCP - General Internal Medicine 01/03/22 Krystyna Bowles MD, PhD [address] [place] [address] [email or web address] Radiation Oncology 07/25/23 Kota Self MD [address] [place] [address] [email or web address] Radiation Oncology 09/03/23 Audrey Bush MD, MPH [address] [place] [address] [email or web address] Medical Oncology 09/03/23 Renee Hood, RN [address] [place] [address] [email or web address] Primary Infusion Nurse 10/21/24 Shreya Waldron RN [address] [place] [address] [email or web address] Associate Infusion Nurse 10/21/24 Francheska Jacobs, ELANA [address] [place] [address] [email or web address] Associate Infusion Nurse 10/21/24 Prema Lee, ELANA [address] [place] [address] [email or web address] Associate Infusion Nurse 01/19/25 Shivam De Jesus MD, MINDI [address] [place] [address] [email or web address] Diagnostic Radiology 03/23/25 documented as of this encounter Additional Source Comments The information contained in this document represents components of the legal health record. It is not the complete legal health record.[facility]
--- OUTSIDE RECORDS SUMMARY | 2025-11-08 22:30 | XMS_ITS | Encounter Summary ---
Author Organization [facility] Address [address] [facility] [address] [place] [address] Phone Care Team Providers Care Company Manager Name Role Phone Kirstin Brooks MD Primary Care Provider [phone] Krystyna Bowles MD, PhD Unavailable [phone] Kota Self MD Unavailable Audrey Bush MD, MPH Unavailable Renee Hood RN Unavailable [email or web address] Shreya Foster RN Unavailable [email or web address] Francheska Scott RN Unavailable [email or web address].[facility] Prema Lee RN Unavailable Efe [email or web address] Shivam De Jesus MD, MINDI Unavailable [phone] Encounter Details Date Type Department Care Team (Late st Contact Info) Description 09/27/2023 Procedure Pass [facility] MR Imaging, [place] [address] [place] [address] Social History Tobacco Use Types Packs/Day Years [...] EST Blood Draw Laboratory Services, [facility] [place] [facility] [place] [address] [address] Audrey Bush MD, MPH [address] [place] [address] [email or web address] documented as of this encounter Visit Diagnoses Not on filedocumented in this encounter Additional Health Concerns Infection Onset Date Last Indicated Resolved Time COVID-19 Comment:Sx onset 09/18/23 Test 09/20/23 09/18/2023 09/19/2023 10/08/2023 1:[address] documented as of this encounter Care Teams Company Manager Relationship Specialty Start Date End Date Kirstin Brooks MD [address] [facility] [address] [place] [address] PCP - General Internal Medicine 01/03/22 Krystyna Bowles MD, PhD [address] [place] [address] [email or web address] U Radiation Oncology 07/25/23 Kota Self MD [address] [place] [address] [email or web address] Radiation Oncology 09/03/23 Audrey Bush MD, MPH [address] [place] [address] [email or web address] Medical Oncology 09/03/23 Renee Hood RN [address] [place] [address] [email or web address] Primary Infusion Nurse 10/21/24 Shreya Waldron RN [address] [place] [address] [email or web address] Associate Infusion Nurse 10/21/24 Francheska Jacobs RN [address] [place] [address] [email or web address] Associate Infusion Nurse 10/21/24 Prema Lee RN [address] [place] [address] [email or web address] Associate Infusion Nurse 01/19/25 Shivam De Jesus MD, MINDI [address] [place] [address] [email or web address] Diagnostic Radiology 03/23/25 documented as of this encounter Additional Source Comments The information contained in this document represents components of the legal health record. It is not the complete legal health record.[facility]
--- OUTSIDE RECORDS SUMMARY | 2025-11-08 22:30 | XMS_ITS | Clinical Summary ---
Author Organization [facility] Address [address] [employer] [facility] [address] [place] [address] Phone Care Team Providers Care Locomotive Supervisor Name Role Phone Kirstin Brooks MD Primary Care Provider [phone] Krystyna Bowles MD, PhD Unavailable [phone] Kota Self MD Unavailable Audrey Bush MD, MPH Unavailable Renee Hood RN Unavailable Brina [email or web address] Shreya Foster RN Unavailable [email or web address]. Francheska Scott RN Unavailable YOLA@ [email or web address] Prema Lee RN Unavailable Efe [email or web address] Shivam De Jesus MD, MINDI Unavailable [phone] Allergies Active Allergy Reactions Criticality Noted Date [...] mg by mouth daily. Active Ca cit-D3-mag#11-zi di-sdlm-agr-bor (CALTRATE 600+D) 600 mg calcium- 800 unit-50 [...] Team Description 10/14/2025 12:45 PM EST Telemedicine [facility] Department of Neurosurgery [address] [place] [address] Aman Low MD, MPH Spinal stenosis of lumbar region, unspecified whether neurogenic claudication present (Primary Dx) 10/07/2025 Ancillary Orders [facility]'s Radiology [address] [place] [address] Aman Low MD, MPH 10/05/2025 Ancillary Procedure [facility] Radiology [address] [place] [address] Aman Low MD, MPH 09/24/2025 Orders Only [facility] Department of Neurosurgery [address] [place] [address] Tori Oconnell, MELANY Lumbosacral spinal stenosis (Primary Dx); Spondylolisthesis of thoracolumbar region 09/02/2025 Orders Only [facility], [facility] Cancer [address], 11th [place] [address] Tiffanie Kauffman PA-C 08/17/2025 11:53 AM EDT - 08/17/2025 11:59 PM EDT Hospital Encounter Department of Radiation Oncology [address] [place] [address] Krystyna Bowles MD, PhD Discharge Disposition: Home or Self Care 08/17/2025 11:00 AM EDT Infusion Infusion Therapy Services [facility] [place] at [address] [address] Audrey Bush MD, MPH Shreya Solomon RN 08/17/2025 10:00 AM EDT Office Visit [facility], [facility] at [address] [address] Tiffanie Kauffman PA-C Morgans, Alicia Katherine, MD, [...] 1:40 PM EST Blood Draw Laboratory Services, [facility] [place] [facility] [place] [address] [place] [address] Audrey Bush MD, MPH [address] [place] [address] [email or web address] Health Maintenance Due Date Last [...] this topic Medical Devices Implanted Type Area Lockstitch Machine Operator Device Identifier Shelf Expiration Date Model / Serial / Lot Kit Mixing [employer]te[employer] - [id number] Implanted:Qty: 1 on 03/22/2025 by Shivam De Jesus MD, MINDI at [facility] Left: Spine Thoracic [employer] . S / / [id number] Kit Mixing [employer] - [id number] Implanted:Qty: 1 on 03/22/2025 by Shivam De Jesus MD, MINDI at [facility] Right: Spine Thoracic [employer] .017 S / / [id number] Procedures Procedure Name Priority Date/Time Associated Diagnosis [...] EDT) SODIUM 142 136 - 145 mmol/L [facility] POTASSIUM 3.7 3.4 - 5.1 mmol/L [facility] CHLORIDE 105 98 - 107 mmol/L [facility] CO2 23 22 - 31 mmol/L [facility] BUN 17 6 - 23 mg/dL [facility] CREATININE 1.09 0.50 - 1.20 mg/dL [facility] GLUCOSE 111(H) 70 - 100 mg/dL [facility] ALBUMIN 4.2 3.5 - 5.2 g/dL [facility] TOTAL PROTEIN 7.6 6.4 - 8.3 g/dL [facility] CALCIUM 9.6 8.8 - 10.7 mg/dL [facility] ALKALINE PHOSPHATASE 104 40 - 129 U/L [facility] TOTAL BILIRUBIN 0.5 0.2 - 1.2 mg/dL [facility] AST 16 <41 U/L [facility] ALT 11 <42 U/L [facility] GLOBULIN 3.4 2.3 - 4.2 g/dL [facility] EGFR 73 >59 mL/min/1.7 3m2 [facility] Comment:Estimated glomerular filtration rate calculated using the CKD-EPI refit equation. ANION GAP 14 7 - 17 mmol/L [facility] Blood 08/17/2025 8:55 AM EDT 08/17/2025 8:56 AM EDT us Tiffanie Kauffman PA-C LAB BLOOD BKR ORDERABLES Fi nal Result [facility] [address] [place] [address], [facility] * PSA diagnostic (monitoring) (08/17/2025 8:55 AM EDT) [facility] PSA Monitoring <0.02 0.00 - 4.00 ng/mL [facility] Blood 08/17/2025 8:55 AM EDT 08/17/2025 8:56 AM EDT Tiffanie Garciaspl PA-C LAB BLOOD BKR ORDERABLES Fi nal Result Performing Organization Address City/[facility]/ZIP Co de Phone Number [facility] [address] [place] [address], [facility] * 25-OH vitamin D (08/17/2025 8:55 AM EDT) Pathologist [facility] 25 OH VIT D (TOTAL) 37 20 - 50 ng/mL [facility] Comment: <10 ng/mL Severe deficiency 10-19 ng/mL Mild to moderate deficiency 20-50 ng/ml Optimum levels 51-80 ng/mL Increased risk of hypercalciuria >80 ng/mL Toxicity possible Blood 08/17/2025 8:55 AM EDT 08/17/2025 8:56 AM EDT Tiffanie Huntl PA-C LAB BLOOD BKR ORDERABLES Fi nal Result Performing Organization Address City/[facility]/ZIP Co de Phone Number [facility] [address] [place] [address] * (ABNORMAL) CBC and differential (08/17/2025 8:55 AM EDT) [facility] WBC 6.89 4.00 - 10.00 K/uL [facility] RBC 4.35(L) 4.50 - 6.40 M/uL [facility] HGB 13.0(L) 13.5 - 18.0 g/dL [facility] HCT 40.4 40.0 - 54.0 % [facility] PLT 239 150 - 450 K/uL [facility] MCV 92.9 80.0 - 100.0 fL [facility] MCH 29.9 27.0 - 32.0 pg [facility] MCHC 32.2 32.0 - 36.0 g/dL [facility] RDW 13.8 11.5 - 14.5 % [facility] MPV 9.4 8.4 - 12.0 fL [facility] NRBC 0.00 0.00 /100 WBCs [facility] ABSOLUTE NRBC 0.00 0 K/uL [facility] DIFF METHOD Auto [facility] NEUTS 78.4(H) 48.0 - 76.0 % [facility] LYMPHS 10.2(L) 18.0 - 41.0 % [facility] MONOS 8.1 4.0 - 11.0 % [facility] EOS 2.3 0.0 - 5.0 % [facility] BASOS 0.7 0.00 - 1.50 % [facility] % IMMATURE GRANS 0.3 0.00 - 1.00 % [facility] ABSOLUTE NEUTS 5.40 1.92 - 7.60 K/uL [facility] ABSOLUTE LYMPHS 0.70(L) 0.72 - 4.10 K/uL [facility] ABSOLUTE MONOS 0.56 0.16 - 1.10 K/uL [facility] ABSOLUTE EOS 0.16 0.00 - 0.50 K/uL [facility] ABSOLUTE BASOS 0.05 0.00 - 0.15 K/uL [facility] ABS IMMATURE GRANS 0.02 0.00 - 0.10 K/uL [facility] Blood 08/17/2025 8:55 AM EDT 08/17/2025 8:56 AM EDT us Tiffanie Kauffman PA-C LAB BLOOD BKR ORDERABLES Fi nal Result [facility] [address] [place] [address], [facility] * (ABNORMAL) Testosterone, total (08/17/2025 8:55 AM EDT) TESTOSTERONE <3(L) 193 - 740 ng/dL [facility] Blood 08/17/2025 8:55 AM EDT 08/17/2025 8:56 AM EDT us Tiffanie Draper Nuspl PA-C LAB BLOOD BKR ORDERABLES Fi nal Result Performing Organization Address City/[facility] Co de Phone Number [address] * Phosphorus (08/17/2025 8:55 AM EDT) PHOSPHORUS 4.0 2.5 - 4.5 mg/dL [facility] Blood 08/17/2025 8:55 AM EDT 08/17/2025 8:56 AM EDT us Tiffanie Draper Nuspl PA-C LAB BLOOD BKR ORDERABLES Fi nal Result Performing Organization Address [facility] Co de Phone Number [address] * Magnesium (08/17/2025 8:55 AM EDT) MAGNESIUM 1.9 1.7 - 2.6 mg/dL [facility] Blood 08/17/2025 8:55 AM EDT 08/17/2025 8:56 AM EDT us Tiffanie Draper Nuspl PA-C LAB BLOOD BKR ORDERABLES Fi nal Result Performing Organization Address City/[facility] de Phone Number [address] * TSH (02/12/2024 9:36 AM EDT) TSH 1.81 0.27 - 4.20 uIU/mL [facility] LIC# [id number] Blood 02/12/2024 9:36 AM EDT 02/12/2024 9:39 AM EDT Sunita Goode Sampson HIDE INSPECTOR LAB BLOOD BKR ORDERAB LES Final Result [facility]# [id number] [address] [place] [address], [facility] from Last 3 Months or Most Recently Relevant to Health Maintenance Insurance [employer] SUPPLEMENT MEDICARE PART A & B [employer] SUPPLEMENT MEDICARE PART A & B [employer] SUPP[employer] MEDICARE PART A & B [employer] SUPPLEMENT MEDICARE PART A & B [employer] MED[employer] SUPPLEMENT MEDICARE PART A & B [employer] CROSS MEDEX SUPPLEMENT MEDICARE PART A & B [employer] CROSS MEDEX SUPPLEMENT MEDICARE PART A & B [employer] CROSS MEDEX SUPPLEMENT MEDICARE PART A & B [employer] CROSS MEDEX SUPPLEMENT MEDICARE PART A & B Care Teams Locomotive Supervisor Relationship Specialty Start Date End Date Kirstin Brooks MD [address] [place] [address] PCP - General Internal Medicine 01/03/22 Krystyna Bowles MD, PhD [address] [place] [address] [email or web address] Radiation Oncology 07/25/23 Kota Self MD [address] [place] [address] [email or web address] u Radiation Oncology 09/03/23 Audrey Bush MD, MPH [address] [place] [address] NOE@[email or web address] [facility] Medical Oncology 09/03/23 Renee Hood RN [address] [place] [address] [email or web address] Primary Infusion Nurse 10/21/24 Shreya Solomon RN [address] [place] [address] [email or web address] Associate Infusion Nurse 10/21/24 Francheska Jacobs, ELANA [address] [place] [address] [email or web address]@[email or web address] Associate Infusion Nurse 10/21/24 Prema Lee RN [address] [place] [address] [email or web address] Associate Infusion Nurse 01/19/25 Shivam De Jesus MD, MINDI [address] [place] [address] [email or web address] Diagnostic Radiology 03/23/25 Additional Source Comments The information contained in this document represents components of the legal health record. It is not the complete legal health record.[facility]
--- OUTSIDE RECORDS SUMMARY | 2025-11-08 22:31 | XMS_ITS | Encounter Summary ---
Author Organization [facility] Address [address] [facility] [address] [place] [address] Phone Care Team Providers Care Systems Applications Programming Lead Name Role Phone Kirstin Brooks MD Primary Care Provider [phone] Self-Referred, Patient Unavailable Unavailab Krystyna Kaiser MD, PhD Unavailable [phone] Kota Self MD Unavailable Audrey Bush MD , MPH Unavailable Renee Hood RN Unavailable Brina [email or web address] Shreya Solomon RN Unavailable jose [email or web address] Francheska Jacobs RN Unavailable YOLA@ [email or web address].[place].[facility] Prema Lee RN Unavailable Efe [email or web address] Shivam De Jesus MD, MIDNI Unavailable [phone] Encounter Details Date Type Department Care Team (Late st Contact Info) Description 05/10/2023 Procedure Pass [place] [place] [facility] [place] [address] [facility] 4th [place] [address] Social History Tobacco Use Types [...] 1:40 PM EST [facility] [place] [facility] [place] [address] [facility] 3rd [place] [address] Audrey Bush MD, MPH [address] [place] [address] [email or web address] documented as of this encounter Visit Diagnoses Not on filedocumented in this encounter Additional Health Concerns Infection Onset Date Last Indicated Resolved Time COVID-19 Comment:Sx onset 09/18/23 Test 09/20/23 09/18/2023 09/19/2023 10/08/2023 1:[address] documented as of this encounter Care Teams Systems Applications Programming Lead Relationship Specialty Start Date End Date Kirstin Brooks MD [address] [place] [address] PCP - General Internal Medicine 01/03/22 Self-Referred, Patient Referring Physician 04/18/23 09/02/23 Krystyna Bowles MD, PhD [address] [place] [address] [email or web address] U Radiation Oncology 07/25/23 Kota Self MD [address] [place] [address] [email or web address] u Radiation Oncology 09/03/23 Audrey Bush MD, MPH [address] [place] [address] NOE@[email or web address] Medical Oncology 09/03/23 Renee Hood, ELANA [address] [place] [address] [email or web address] Primary Infusion Nurse 10/21/24 Shreya Solomon RN [address] [place] [address] [email or web address] Associate Infusion Nurse 10/21/24 Francheska Jacobs, ELANA [address] [place] [address] YOLA@[email or web address] Associate Infusion Nurse 10/21/24 Prema Lee RN [address] [place] [address] [email or web address] Associate Infusion Nurse 01/19/25 Shivam De Jesus MD, MINDI [address] [place] [address] [email or web address] Diagnostic Radiology 03/23/25 documented as of this encounter Additional Source Comments The information contained in this document represents components of the legal health record. It is not the complete legal health record.[facility]
== END 2025-11-08 14:14 | disposition home or self-care (01) ==
LOC: HO.ACS 13:43
PROVIDERS: PCP Internal Medicine; Visit Provider Internal Medicine Medical Oncology
DX: Z79.01 Long term (current) use of anticoagulants (principal)

== ENCOUNTER → 2025-11-08 13:43 | Outpatient (BNVA) | payer MEDICARE, SELFPAY | PROVIDERS: PCP Internal Medicine; Visit Provider Internal Medicine Medical Oncology | DX: Z79.01 Long term (current) use of anticoagulants (principal) | CPT/HCPCS: 85610; 99211 ==

== ENCOUNTER 2025-11-29 13:22 | Outpatient (AMB) | payer MEDICARE, SELFPAY ==
[2025-11-29 13:30] LABS: Prothrombin Time Whole Bld POC 28.0 sec (11.1-13.5); ~PT, ~INR - Anti Coag Clinic 2.3 (0.9-1.1)
--- NOTE | 2025-11-29 13:33 | MHC.OFFVISCO ---
Intake Intake Visit Reasons: Anticoagulation Allergies No Known Allergies Allergy (Verified 11/29/25 13:26) Medication List - Last Reconciled 11/29/25 by Donna Archer RN [CALCIUM PO] cholecalciferol (vitamin D3) (Vitamin D3) PO citalopram 20 mg PO DAILY diltiazem HCl CD 300 mg PO DAILY furosemide 40 mg PO DAILY levothyroxine 100 mcg PO DAILY losartan 100 mg PO DAILY [magnesium PO] metformin mg PO nitroglycerin 0.4 mg sublingual oxycodone mg PO pantoprazole 40 mg PO DAILY pravastatin mg PO tizanidine 2 mg PO BEDTIME tramadol 50 mg PO BID PRN warfarin (Jantoven) 5 mg See Protocol PO DAILY Nursing Note INR: 2.3 in therapeutic range of 2-3 Medications and supplements reviewed No changes in health, diet, medications, or supplements, Denies any signs and symptoms of bleeding or bruising or clotting. 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
--- OUTSIDE RECORDS SUMMARY | 2025-11-29 15:26 | XMS_ITS | Encounter Summary ---
Author Organization [facility] Address [address] [place] [address] Phone Care Team Providers Care Environmental Restoration Planner Name Role Phone Kirstin Brooks MD Primary Care Provider [phone] Krystyna Bowles MD, PhD Unavailable [phone] Kota Self MD Unavailable uAdrey Bush MD, MPH Unavailable Renee Hood RN Unavailable Brina [email or web address] U Shreya Waldron RN Unavailable [email or web address] Francheska Scott RN Unavailable [email or web address]@ [email or web address] Prema Lee RN Unavailable Efe [email or web address] Shivam De Jesus MD, MINDI Unavailable [phone] Encounter Details Date Type Department Care Team (Late st Contact Info) Description 12/17/2024 Telephone [facility]'[address] [address] Lucille [email or web address] u Social History Tobacco Use Types Packs/Day [...] Care Team (Late st Contact Info) Description 02/16/2026 8:10 AM EDT Blood Draw Laboratory Services, [facility] [place] [facility] [place] [address] [address] Audrey Bush MD, MPH [address] [place] [address] NOE@[email or web address] .[facility] 02/16/2026 9:30 AM EDT Office [facility], [facility] [place] [facility] [place] [address] [address] Audrey Bush MD, MPH [address] [place] [address] NOE@[email or web address] .[facility] documented as of this encounter Visit Diagnoses Not on filedocumented in this encounter Care Teams Environmental Restoration Planner Relationship Specialty Start Date End Date Kirstin Brooks MD [address] [place] [address] PCP - General Internal Medicine 01/03/22 Krystyna Bowles MD, PhD [address] [place] [address] [email or web address] U Radiation Oncology 07/25/23 Kota Self MD [address] [place] [address] [email or web address] u Radiation Oncology 09/03/23 Audrey Bush MD, MPH [address] [place] [address] NOE@[email or web address] Medical Oncology 09/03/23 Renee Hood, ELANA [address] [place] [address] [email or web address], [facility] Primary Infusion Nurse 10/21/24 Shreya Waldron, ELANA [address] [place] [address] [email or web address] Associate Infusion Nurse 10/21/24 Francheska Jacobs, ELANA [address] [place] [address] YOLA@[email or web address] Associate Infusion Nurse 10/21/24 Prema Lee RN [address] [place] [address] [email or web address]@[facility] Associate Infusion Nurse 01/19/25 Shivam De Jesus MD, MINDI [address] [place] [address] [email or web address] Diagnostic Radiology 03/23/25 documented as of this encounter Additional Source Comments The information contained in this document represents components of the legal health record. It is not the complete legal health record.[facility]
--- OUTSIDE RECORDS SUMMARY | 2025-11-29 15:26 | XMS_ITS | Encounter Summary ---
Author Organization [facility] Address [address] [facility] [address] [place] [address] Phone Care Team Providers Care Informatics Developer Name Role Phone Kirstin Brooks MD Primary Care Provider [phone] Krystyna Bowles MD, PhD Unavailable [phone] Kota Self MD Unavailable Audrey Bush MD, MPH Unavailable Renee Hood RN Unavailable Brina [email or web address] Shreya Foster RN Unavailable jose [email or web address]. Francheska Scott RN Unavailable YOLA@ [facility].[place].[facility] Prema Lee RN Unavailable Efe [email or web address] Shivam De Jesus MD, MINDI Unavailable [phone] Encounter Details Date Type Department Care Team (Late st Contact Info) Description 09/27/2023 Procedure Pass [facility] MR Imaging, [place] [address] [place] [address] Social History Tobacco Use Types Packs/Day Years [...] 8:10 AM EDT Blood Draw Laboratory Services, [facility] [place] [address] [address] Audrey Bush MD, MPH [address] [place], [place] [address] [email or web address] .[email or web address] 02/16/2026 9:30 AM EDT [facility], [facility] [facility] [place] [address] [address] Audrey Bush MD, MPH [address] [place] [address] NOE@[facility] documented as of this encounter Visit Diagnoses Not on filedocumented in this encounter Additional Health Concerns Infection Onset Date Last Indicated Resolved Time COVID-19 Comment:Sx onset 09/18/23 Test 09/20/23 09/18/2023 09/19/2023 10/08/2023 1:[address] documented as of this encounter Care Teams Informatics Developer Relationship Specialty Start Date End Date Kirstin Brooks MD [address] [place] [address] PCP - General Internal Medicine 01/03/22 Krystyna Bowles MD, PhD [address] [place] [address] [email or web address] U Radiation Oncology 07/25/23 Kota Self MD [address] [place] [address] [email or web address] Radiation Oncology 09/03/23 Audrey Bush MD, MPH [address] [place] [address] NOE@[email or web address]. [facility] Medical Oncology 09/03/23 Renee Hood RN [address] [place] [address] [email or web address] Primary Infusion Nurse 10/21/24 Shreya Waldron RN [address] [place] [address] [email or web address] Associate Infusion Nurse 10/21/24 Francheska Jacobs, ELANA [address] [place] [address] YOLA@[facility] Associate Infusion Nurse 10/21/24 Prema Lee RN [address] [place] [address] [email or web address] Associate Infusion Nurse 01/19/25 Shivam De Jesus MD, MINDI [address] [place] [address] [email or web address] Diagnostic Radiology 03/23/25 documented as of this encounter Additional Source Comments The information contained in this document represents components of the legal health record. It is not the complete legal health record.[facility]
--- OUTSIDE RECORDS SUMMARY | 2025-11-29 15:26 | XMS_ITS ---
Author Organization [facility] Address [address] [employer] [facility] [address] [place] [address] Phone Care Team Providers Care Fashion Stylist Name Role Phone Kirstin Brooks MD Primary Care Provider [phone] Krystyna Bowles MD, PhD Unavailable [phone] Kota Self MD Unavailable Audrey Bush MD, MPH Unavailable Renee Hood RN Unavailable Brina [email or web address]. Shreya Foster RN Unavailable [email or web address]. Francheska Scott RN Unavailable YOLA@ [facility].EARLY.[facility] Prema Lee RN Unavailable Efe [email or web address] Shivam De Jesus MD, MINDI Unavailable [phone] Active Problems Problem Noted Date Diagnosed Date [...]
--- OUTSIDE RECORDS SUMMARY | 2025-11-29 15:26 | XMS_ITS | Clinical Summary ---
Author Organization [facility] Prior to 05/01/25 Address [address] [place] [address] Care Team Providers Care Concrete Saw Operator Name Role Phone Kirstin Brooks MD Primary Care Provider [phone] Allergies Active Allergy Reactions Criticality Noted Date [...] age to complete this topic Care Teams Concrete Saw Operator Relationship Specialty Start Date End Date Kirstin Brooks MD [address] [place] [address] PCP - General Internal Medicine 03/11/19 KIM LANDAVERDE Referring Physician Orthopedic Surgery 12/26/15
--- OUTSIDE RECORDS SUMMARY | 2025-11-29 15:26 | XMS_ITS | Patient Health Record ---
Author Organization [facility] [address] Address [address] [place] [address] Care Team Providers [employer] Name Role Phone Caridad Conn Unavailable [phone] MARIBELL BROOKS Unavailable [phone] TIERRA MICHELLE Unavailable [phone] DELMAR ROBLES Unavailable [phone] Allergies No Known Allergies Results Component Value Reference Range Flag Notes RPR, Rfx Qn RPR/Confirm TP-0 [id number] Reviewed date:01/07/2025 09:00:04 AM Interpretation: Performing Lab:[facility], [address] [place] [address], Phone - [phone], Director - Shannan Notes/Report: RPR Non Reactive Non Reactive XR THORACIC SPINE 2 VIEWS Reviewed date:06/10/2025 03:10:52 PM Interpretation: Performing Lab: Notes/Report: Note See Note [facility], a member of [facility] Patient Name: JOSE MANUEL KAM Date of : 1955 Reason for Exam: pain Exam Date: 06/09/2025 [id number] EST Report Status: Final Ordering Provider: DELMAR [...] the mid and lower thoracic spine. Code 41185 -------- FINAL REPOR T -------- Dictated By: Gregory Reyes Dictated Date: 06/10/2025 07:48 ET Assigned Physician: Gregory Reyes Reviewed and Electronically Signed By: Gregory Reyes Signed Date: 025 07:50 ET Workstation ID: [id number] Transcribed By: Self Edit Transcribed Date: 06/10/2025 07:48 ET [facility] Strep Test Reviewed date:10/12/2025 11:37:38 AM Interpretation:Negative Performing Lab: Notes/Report: Negative XR LUMBAR SPINE 2-3 VIEWS Reviewed date:09/21/2025 09:13:08 AM Interpretation: Performing Lab: Notes/Report: Note See Note [facility], a member of [facility] Patient Name: JOSE MANUEL KAM Date of : 1955 Reason for Exam: back pain Exam Date: 09/20/2025 [id number] EST Report Status: Final Ordering Provider: CARIDAD CONN PCP: MARIBELL BROOKS HISTORY: The patient is a 70-year-old male with low back pain following a fall 2010 days previously. FINDINGS: AP, latera l, and coned-down spot [...] and L5-S1 is again demonstrated. -------- FINAL REPOR T -------- Dictated By: Gregory Reyes Dictated Date: 09/21/2025 08:51 ET Assigned Physician: Gregory Reyes Reviewed and Electronically Signed By: Gregory Reyes Signed Date: 025 08:54 ET Workstation ID: [id number] Transcribed By: Self Edit Transcribed Date: 09/21/2025 08:51 ET XR LUMBAR SPINE 2-3 VIEWS Reviewed date:02/16/2025 04:08:55 PM Interpretation: Performing Lab: Notes/Report: Note See Note [facility], a member of [facility] Patient Name: JOSE MANUEL KAM Date of : 1955 Reason for Exam: THORACIC PAIN M54.6 Exam Date: 02/16/2025 [id number] EST Report Status: Final Ordering Provider: CARIDAD [...] well-maintained. Extensive atherosclerotic arterial calcification is noted. IMPRESSION: [...] Extensive atherosclerotic arterial calcification is noted. Code 52831 -------- FINAL REPOR T -------- Dictated By: Gregory Reyes Dictated Date: 02/16/2025 11:45 ET Assigned Physician: Gregory Reyes Reviewed and Electronically Signed By: Gregory Reyes Signed Date: 11:49 ET Workstation ID: [id number] Transcribed By: Self Edit Transcribed Date: 02/16/2025 11:45 ET [facility] Rapid Covid/Strep/Flu/RS V Reviewed date:10/12/2025 11:37:09 AM Interpretation:Negative Performing Lab: Notes/Report: Negative XR THORACIC SPINE 2 VIEWS Reviewed date:09/21/2025 09:14:06 AM Interpretation: Performing Lab: Notes/Report: Note See Note [facility], a member of [facility] Patient Name: JOSE MANUEL KAM Date of : 1955 Reason for Exam: back pain Exam Date: 09/20/2025 [id number] EST Report Status: Final Ordering Provider: CARIDAD CONN PCP: MARIBELL BROOKS HISTORY: The patient is a 70-year-old male with upper back pain 10 days following a fall. FINDINGS: AP and lat eral radiographs of the thoracic spine demonstrate that the patient has undergone previous percutaneous augmentation of a severe compression fracture of the T8 vertebral body, as also seen on the prior study performed 06/09/2025. No new fracture is seen. Alignment is anatomic. Degenerative osteophytes are present throughout the thoracic spine. IMPRESSION: No acute findings an d no change since 06/09/2025. The patient is again seen to have undergone percutaneous augmentation of a severe compression fracture of T8. -------- FINAL REPOR T -------- Dictated By: Gregory Reyes Dictated Date: 09/21/2025 08:50 ET Assigned Physician: Gregory Reyes Reviewed and Electronically Signed By: Gregory Reyes Signed Date: 08:51 ET Workstation ID: [id number] Transcribed By: Self Edit Transcribed Date: 09/21/2025 08:50 ET XR THORACIC SPINE 2 VIEWS Reviewed date:02/16/2025 04:06:08 PM Interpretation: Performing Lab: Notes/Report: Note See Note [facility], a member of [facility] Patient Name: JOSE MANUEL KAM Date of : 1955 Reason for Exam: pain Exam Date: 02/16/2025 [id number] EST Report Status: Final Ordering Provider: CARIDAD [...] the mid and lower thoracic spine. Code 10190 -------- FINAL REPOR T -------- Dictated By: Gregory Reyes Dictated Date: 02/16/2025 11:42 ET Assigned Physician: Gregory Reyes Reviewed and Electronically Signed By: Gregory Reyes Signed Date: 025 11:45 ET Workstation ID: [id number] Transcribed By: Self Edit Transcribed Date: 02/16/2025 11:42 ET CBC WITH AUTO DIFFERENTIAL Reviewed date:07/29/2025 12:17:35 PM Interpretation: Performing Lab: Notes/Report: WBC 7.1 4.8-10.8 K/mcL RBC 4.30 4.50-5.50 M/mcL L Hemoglobin 12.7 13.5-17.5 g/dL L Hematocrit 40.6 42.0-54.0 % L MCV 95.1 79.0-98.0 FL MCH 29.7 27.0-32.0 pcg MCHC 31.3 32.0-37.0 g/dL L RDW 14.0 11.0-15.0 % Platelets 251 130-400 [...] K/mcL Immature Granulocytes Absolute 0.03 0.00-0.03 K/mcL LIPID PANEL WITH REFLEX TO D IRECT LDL Reviewed date:07/29/2025 12:16:25 PM Interpretation: Performing Lab: Notes/Report: Cholesterol 124 0-200 mg/dL Triglycerides 125 0-150 mg/dL HDL 44 >=40 mg/dL LDL Calculated 55 0-100 mg/dL Estimated LDL Calculated using equation: Total cholesterol - HDL cholesterol - (Triglycerides/5) VLDL Cholesterol Yoshi 25 Non HDL Chol. (LDL+VLDL) 80 <145 mg/dL Chol/HDL Ratio 2.8 0.0-4.4 COMPREHENSIVE METABOLIC PANE L Reviewed date:07/29/2025 12:17:17 PM Interpretation: Performing Lab: Notes/Report: Sodium 142 133-145 mmol/L Potassium 4.3 3.5-5.5 mmol/L Chloride 107 96-110 mmol/L CO2 28 21-32 mmol/L Anion Gap 7 3-11 Glucose 110 70-100 mg/dL H BUN 11 5-25 mg/dL Creatinine 1.26 0.70-1.30 [...] 3.2-5.0 g/dL Total Bilirubin 0.6 0.0-1.4 mg/dL URINALYSIS WITH REFLEX MICRO SCOPIC AND CULTURE Reviewed date:07/29/2025 12:16:35 PM Interpretation: Performing Lab: Notes/Report: Specific [place] Urine 1.008 1.003-1.030 pH, Urine 7.0 5.0-8.0 pH Leukocytes, Urine Negative Negative Nitrite, Urine Negative Negative Protein, Urine Negative <=Trace mg/dL Glucose, Urine Negative Negative mg/dL Ketones, Urine Negative Negative mg/dL Urobilinogen, Urine 0.2 0.2-1.0 mg/dL Bilirubin, Urine Negative Negative Blood, Urine Trace Negative A RBC, Urine 3.7 0-4 /HPF WBC, Urine 0.1 0-4 /HPF Squamous Epithelial, Urine 7 0-60 /LPF Bacteria, Urine Negative Negative /HPF Hyaline Casts, Urine 0.0 0-3 /LPF HEMOGLOBIN A1C Reviewed date:07/29/2025 04:07:39 PM Interpretation: Performing Lab: Notes/Report: Hemoglobin A1C 6.0 <6.5 % Mean Bld Glu Estim. 126 MICROALBUMIN CREATININE URIN E RATIO Reviewed date:07/29/2025 04:07:47 PM Interpretation: Performing Lab: Notes/Report: Creatinine, Urine 42.0 Microalb, Ur 30.4 0.0-29.0 mg/L H Microalb/Creat Ratio 72 <30 mg/g creat H CBC WITH AUTO DIFFERENTIAL Reviewed date:01/12/2025 09:10:01 PM Interpretation: Performing Lab: Notes/Report: WBC 8.1 4.8-10.8 K/mcL RBC 4.20 4.50-5.50 M/mcL L Hemoglobin 12.6 13.5-17.5 g/dL L Hematocrit 40.3 42.0-54.0 % L MCV 96.4 79.0-98.0 FL MCH 30.1 27.0-32.0 pcg MCHC 31.3 32.0-37.0 g/dL L RDW 13.9 11.0-15.0 % Platelets 276 130-400 K/mcL MPV 9.9 7.0-11.0 FL NRBC 0.0 <1.0 % NRBC Absolute 0.00 <0.10 K/mcL Neutrophils Relative 77.1 Lymphocytes Relative 11.0 Monocytes Relative 8.7 Eosinophils Relative 1.9 Basophils Relative 0.9 Immature Granulocytes Relative 0.4 Neutrophils Absolute 6.24 1.50-7.00 K/mcL Lymphocytes Absolute 0.89 1.00-5.00 K/mcL L Monocytes Absolute 0.70 0.20-1.00 K/mcL Eosinophils Absolute 0.15 0.00-0.50 K/mcL Basophils Absolute 0.07 0.00-0.20 K/mcL Immature Granulocytes Absolute 0.03 0.00-0.03 K/mcL Comp. Metabolic Panel (14)-3 Reviewed date:01/07/2025 02:47:01 PM Interpretation: Performing Lab:[facility], [address] [place] [address], Phone - [phone], Director - MDFlordry Notes/Report: Glucose 107 70-99 mg/dL H BUN 13 8-27 mg/dL Creatinine 1.03 0.76-1.27 [...] 8 0-44 IU/L Calcitriol(1,25 di-OH Vit D) -[id number] Reviewed date:01/07/2025 08:59:28 AM Interpretation: Performing Lab:[facility], [address] [place] [address], Phone - [phone], Director - Ramonadry Notes/Report: Calcitriol(1,25 di-OH Vit D) 34.0 24.8-81.5 pg/mL CBC With Differential/Platel et-[id number] Reviewed date:01/07/2025 02:46:41 PM Interpretation: Performing Lab:[facility], [address] [place] [address], Phone - [phone], Director - Jodry Notes/Report: WBC 11.5 3.4-10.8 x10E3/uL H RBC 4.49 4.14-5.80 x10E6/uL Hemoglobin 13.5 13.0-17.7 g/dL Hematocrit 42.3 37.5-51.0 % MCV 94 79-97 fL MCH 30.1 26.6-33.0 pg MCHC 31.9 31.5-35.7 g/dL RDW 13.0 11.6-15.4 % Platelets 299 150-450 x10E3/uL Neutrophils 86 Not Estab. % Lymphs 6 Not Estab. % Monocytes 6 Not Estab. % Eos 1 Not Estab. % Basos 1 Not Estab. % Neutrophils (Absolute) 9.9 1.4-7.0 x10E3/uL H Lymphs (Absolute) 0.7 0.7-3.1 x10E3/uL Monocytes(Absolute) 0.6 0.1-0.9 x10E3/uL Eos (Absolute) 0.1 0.0-0.4 x10E3/uL Baso (Absolute) 0.1 0.0-0.2 x10E3/uL Immature Granulocytes 0 Not Estab. % Immature Grans (Abs) 0.0 0.0-0.1 x10E3/uL TSH-[id number] Reviewed date:01/07/2025 08:59:43 AM Interpretation: Performing Lab:[facility], [address] [place] [address], Phone - [phone], Director - [facility] Notes/Report: TSH 1.810 0.450-4.500 uIU/mL Vitamin [id number] Reviewed date:01/07/2025 08:59:09 AM Interpretation: Performing Lab[facility], [address] [place] [address], Phone - [phone], Director - [facility] Notes/Report: Vitamin B12 874 678-1583 pg/mL Priscilla Perez CMP14 Default A hand-written panel/profile was received from your office. In accordance with the [facility] Ambiguous Test Code Policy dated June 2003, we have completed your order by using the closest currently or formerly recognized AMA panel. We have assigned Comprehensive Metabolic Panel (14), Test Code #345529 to this request. If this is not the testing you wished to receive on this specimen, please contact the [facility] Client Inquiry/Technical Services Department to clarify the test order. We appreciate your business. Reason For Referral Reason [facility]; compulsive behaviors, mood d/o; Neurosych eval- decreased memory Diagnosis 1 Memory changes (R41. 3) Diagnosis 2 Compulsive buying (F 42.8) Diagnosis 3 Mood disorder (F39) Referral Organization [facility] [address] Referring Provider First Name MARIBELL Referring Provider Last Name BHARGAVI Referring Provider Speciality Internal edicine Referred Provider Specialty Neuropsychia try General Notes [facility] , (p) [phone], (f) [phone] Clinical Notes Susan Clement 08:44:35 AM > referral faxed with attachments, Roberto De Los Santos 01/13/2025 09:18:31 AM > I called the office, and they do not see patients over 65 years old with memory issues. They advised sending the referral to the memory clinic. Faxed. phone: [phone], Fax: [phone], [facility] , fax - [phone], Pt requested we also fax this referral to neuro psych attn to jorge , fax- [phone] , faxed , phone - [phone] Referral Priority Routine Reason evaluate & treat Diagnosis 1 Memory changes (R41. 3) Referral Organization [facility] [address] Referring Provider First Name Caridad Referring Provider Last Name Svrcek Ref[facility] Referred Provider Specialty Neurology General Notes Pooja Ross 01/01 10:28:21 AM >manually faxed to the [facility] at fax#[phone], their phone number is [phone] Clinical Notes Susan Clement 01:16:10 PM > manually refaxed with MRI and lab results, Roberto De Los Santos 01/13/2025 09:24:59 AM > I called the office, and they do not see patients over 65 years old with memory issues. They advised sending the referral to the memory clinic. Faxed. phone: [phone], Fax: [phone] Danasia 01/14/2025 02:24:58 PM > re faxed referral to [facility] clinic[facility] Julia 02/09/2025 11:07:59 AM >, faxed labsFiliberto Harryjah 08/13/2025 02:59:12 PM > The patient was seen 07/23/25 Referral Priority Routine Medications Medication SIG (Take, Route, Frequency, Duration) Notes Start Date End Date Status Calcium 600 MG Tablet 1 tablet with meal s Orally Twice a day Active tiZANidine HCl 2 MG Tablet 1 tablet at bedtime Orally once daily; Duration: 30 days As needed as needed Active dilTIAZem HCl ER 300 MG Tablet Extended Release 24 Hour 1 capsule Orally Once a day Active Nitroglycerin 0.[address] 1 TABLET BY MOUTH UNDER TONGUE; Duration: 30 days As needed Active predniSONE 5 MG Tablet 1 tablet Orally O nce a day Not-Taking Abiraterone Acetate 500 MG Tablet one tablet Oral once daily; Duration: 30 days Not-Taking Pravastatin Sodium 40 mg Tablet TAKE 1 TABLET DAILY orally once a day; Duration: 90 days Active Levothyroxine Sodium 100 MCG Tablet TAKE 1 TABLET DAILY IN THE MORNING ON AN EMPTY STOMACH Active Citalopram Hydrobromide 20 mg Tablet TAKE 1 TABLET DAILY orally once a day; Duration: 90 days Active Warfarin Sodium 5 mg Tablet TAKE 1 TABLET DAILY Active Vitamin D 50 MCG (2000 UT) Tablet 1 tablet Orally Once a day Active Pantoprazole Sodium 40 mg Tablet Delayed Release TAKE 1 TABLET DAILY Active Furosemide 40 mg Tablet TAKE 1 TABLET DAILY Active traMADol HCl 50 MG Tablet 1 tablet as needed Orally twice a day; Duration: 30 days 11/23/2025 Active metFORMIN HCl 500 mg Tablet TAKE 1 TABLET DAILY WITH A MEAL Active Journavx 50 MG Tablet as directed Orally; Duration: 10 days 2 tablets x 1 dose now, then 1 tablet every 12 hours x 3 doses, then 1 tablet every 24 hours thereafter for acute pain 03/04/2025 Not-Taking Azithromycin 250 MG Tablet 2 tablets once a day for 1 day, 1 tablet once a day for 4 days Orally daily; Duration: 5 days 10/12/2025 Active Losartan Potassium 100 mg Tablet TAKE 1 TABLET DAILY Active Immunizations Vaccine Route Administration Date Status Comme nts Tdap IM Intramuscular 03/05/2018 Administered Social History Tobacco Use: Social History Observation Description Date Details (start date - stop date) Former Smoker NA - NA Social History Drugs/Alcohol: Social Info Question Answer Notes Drugs Have you used drugs other than those for medical reasons in the past 12 months? No Tobacco Use: Social Info Question Answer Notes Tobacco Use/Smoking Are you a former smoker Additional Details Category Social Info Options Details Drugs/Alcohol: Do you smoke marijuana? De nies Do you drink alcohol? 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) Type 2 diabetes mellitus with unspecified complications (E11.8) Active confirmed Problem Morbid obesity (disorder) (997176951) Morbid (severe) obesity due to excess calories (E66.01) Active confirmed Problem Hyperlipidemia (41250539) Hyperlipidemia, unspecified (E78.5) Active confirmed Problem Periodic limb movement disorder (940807611) Periodic limb movement disorder (G47.61) Active confirmed Problem Chronic pain (47176359) Other chronic pain (G89.29) Active confirmed Problem Essential hypertension (22761343) Essential (primary) hypertension (I10) Active confirmed Problem Paroxysmal atrial fibrillation (430064393) Paroxysmal atrial fibrillation (I48.0) Active confirmed Problem Common cold (40054326) Acute nasopharyngitis [common cold] (J00) Active confirmed Problem Acute exacerbation of chronic obstructive airways disease (368208118) Chronic obstructive pulmonary disease with (acute) exacerbation (J44.1) Active confirmed Problem Chronic obstructive lung disease (31812607) Chronic obstructive pulmonary disease, unspecified (J44.9) Active confirmed Problem Adult health examination (308337045) Encounter for general adult medical examination without abnormal findings (Z00.00) Active confirmed Problem Morbid obesity (823734968) Morbid obesity (E66.01) Active confirmed Problem Disorder due to type 2 diabetes mellitus (721899292) 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, unspecified whether mcfp insulin use (E11.8) Active confirmed Problem Hyperlipidaemia (85446963) Hyperlipidemia, unspecified hyperlipidemia type (E78.5) Active confirmed Problem Acquired hypothyroidism (591976531) Acquired hypothyroidism (E03.9) Active confirmed Problem Malignant tumor of prostate (616091335) Prostate cancer (C61) Active confirmed Problem Vitamin D deficiency (97069458) Vitamin D deficiency (E55.9) Active confirmed Problem Elevated PSA (080346388) Elevated PSA (R97.20) Active confirmed Problem Blood in stool (705343832) Blood in stool (K92.1) Active confirmed Problem Obstructive sleep apnea syndrome (53772245) ENE (obstructive sleep apnea) (G47.33) Active confirmed Problem Body mass index 40+ - morbidly obese (482099159) BMI 40.0-44.9, adult (Z68.41) Active confirmed Problem Use of anticoagulation (580820671) Chronic anticoagulation (Z79.01) Active confirmed Problem Type II diabetes mellitus without complication (161987008) Type 2 diabetes mellitus without complication, without long-term current use of insulin (E11.9) Active confirmed Problem Body mass index 40+ - severely obese (263779986) Body mass index [BMI] 45.0-49.9, adult (Z68.42) Active confirmed Problem Dyslipidemia (204640855) Dyslipidemia (E78.5) Active confirmed Problem Cough (81945430) Cough (R05.9) Active confirmed Problem Amnesia (96082585) Memory change s (R41.3) Active confirmed Problem Lumbosacral radiculopathy (1401636) Sciatic radiculitis (M51.17) Active confirmed Problem Lumbar pain (406345941) Lumbar pain (M54.50) Active confirmed Problem Mood disorder (02091548) Mood disorder (F39) Active confirmed Problem Obstructive sleep apnea syndrome (07808813) ENE on CPAP (G47.33) Active confirmed Problem Hypothyroid (16696069) Hypothyroid (E03.9) Active confirmed Problem White blood cell disorder (32160818) Abnormal white blood cell (WBC) (D72.9) Active confirmed Problem Compulsive buying (0485537) Compulsive buying (F42.8) Active confirmed Vital Signs Heart Rate 61 /min 10/12/2025 Temperature 98.5 degrees Fahrenheit 01/13/2025 Oximetry 98 % 10/12/2025 Blood pressure diastolic 76 mm Hg 10/12/2025 Height 69 in 10/12/2025 Blood pressure systolic 128 mm Hg 10/12/2025 Weight 242.4 lbs 10/12/2025 BMI 35.79 kg/m2 10/12/2025 Encounters Encounter [facility] Date [facility] [address] [address] 12/28/2024 Caridad Svrcek Memory changes R41.3 and Compulsive buying F42.8 [facility] [address] 01/12/2025 Caridad Svrcek Memory changes R41.3 ; Compulsive buying F42.8 ; ENE on CPAP G47.33 and Periodic limb movement disorder G47.61 [facility] [address] [place] [address] 01/13/2025 TIERRA MICHELLE Acute URI J06.9 ; Na naye congestion R09.81 and Body aches R52 [facility] [address] 02/16/2025 Caridad Svrcek Memory changes R41.3 ; Acute bilateral thoracic back pain M54.6 ; Compulsive buying F42.8 ; ENE on CPAP G47.33 and Periodic limb movement disorder G47.61 [facility] [address] 03/04/2025 Caridad Svrcek Compression fracture of T8 vertebra, initial encounter S22.060A [facility] [address] 05/11/2025 Caridad Svrcek Memory changes R41.3 ; Compulsive buying F42.8 ; ENE on CPAP G47.33 ; Periodic limb movement disorder G47.61 ; Type 2 diabetes mellitus without complication, without long-term current use of insulin E11.9 ; Hyperlipidemia, unspecified hyperlipidemia type E78.5 ; Paroxysmal atrial fibrillation I48.0 and Encounter for examination of blood pressure without abnormal findings Z01.30 [facility] [address] 06/09/2025 DELMAR ROBLES History of vertebral compression fracture Z87.81 and Thoracic spine pain M54.6 [facility] [address] 08/10/2025 Caridad Svrcek Syncope and collapse R55 ; Paroxysmal atrial fibrillation I48.0 ; Prostate cancer C61 and Essential (primary) hypertension I10 [facility] [address] 09/20/2025 Caridad Svrcek Thoracic back pain, unspecified back pain laterality, unspecified chronicity M54.6 ; Low back pain at multiple sites M54.50 ; ENE on CPAP G47.33 ; Chronic anticoagulation Z79.01 ; Memory changes R41.3 and Essential (primary) hypertension I10 [facility] [address] 10/12/2025 Caridad Svrcek Thoracic back pain, unspecified back pain laterality, unspecified chronicity M54.6 ; URI, acute J06.9 ; Low back pain at multiple sites M54.50 ; ENE on CPAP G47.33 ; Chronic anticoagulation Z79.01 ; Memory changes R41.3 ; Essential (primary) hypertension I10 and Hypothyroid E03.9 [facility] [address] 12/30/2024 Caridad Svrcek Memory changes R41.3 [facility] [address] 12/30/2024 TALAL BROOKS [facility] [address] [facility] [address] 01/07/2025 Caridad Svrcek Abnormal white blood cell (WBC) D72.9 [facility] [address] [facility] [address] 01/11/2025 Caridad Svrcek [facility] [address] 01/12/2025 TALAL BROOKS [facility] [address] [facility] [address] 01/12/2025 Caridad Svrcek [facility] [address] [facility] [address] 01/13/2025 Caridad Svrcek [facility] [address] 01/13/2025 TALAL BROOKS [facility] [address] [place] [address] 01/13/2025 TALAL BROOKS [facility] [address] [facility] [address] 01/15/2025 TALAL BROOKS [facility] [address] [place] [address] 01/16/2025 DELMAR MARGARET [facility] [address] [place] [address] 01/20/2025 Caridad Svrcek [facility] [address] [place] [address] 02/02/2025 Caridad Svrcek [facility] [address] [place] [address] 02/02/2025 Caridad Svrcek [facility] [address] [place] [address] 02/16/2025 Caridad Svrcek [facility] [address] [place] [address] 02/22/2025 Caridad Svrcek [facility] [address] [place] [address] 03/04/2025 Caridad Svrcek [facility] [address] [place] [address] 03/29/2025 Caridad Svrcek [facility] [address] [place] [address] 04/05/2025 Caridad Svrcek [facility] [address] [place] [address] 04/16/2025 TALAL BROOKS [facility] [address] [place] [address] 05/19/2025 Caridad Svrcek [facility] [address] [place], [place] 06/09/2025 Caridad Svrcek [facility] [address] [place] [address] 06/10/2025 Caridad Svrcek [facility] [address] [place] [address] 06/14/2025 Caridad Svrcek [facility] [address] [place] [address] 06/18/2025 Caridad Svrcek [facility] [address] [place] [address] 09/20/2025 Caridad Svrcek [facility] [address] [place] [address] 09/21/2025 Caridad Svrcek [facility] [address] [place] [address] 10/07/2025 Caridad Svrcek [facility] [address] [place] [address] 10/12/2025 Caridad Svrcek [facility] [address] [address] [place] [address] 10/18/2025 Caridad Svrcek [facility] [address] [place] [address] 12/09/2024 Caridad Svrcek [facility] [address] [place] [address] 12/14/2024 Caridad Svrcek [facility] [address] [place] [address] 12/21/2024 Caridad Svrcek [facility] [address] [place] [address] 01/13/2025 TALAL BROOKS [facility] [address] [place] [address] 02/08/2025 Caridad Svrcek [facility] [address] [place] [address] 02/09/2025 Caridad Svrcek [facility] [address] [place] [address] 03/03/2025 Caridad Svrcek [facility] [address] [place] [address] 03/04/2025 Caridad Svrcek [facility] [address] [place] [address] 07/20/2025 Caridad Svrcek [facility] [address] [place] [address] 08/03/2025 Caridad Svrcek [facility] [address] [place] [address] 08/31/2025 Caridad Svrcek [facility] [address] [place] [address] 09/17/2025 Caridad Svrcek [facility] [address] [place] [address] 09/20/2025 Caridad Svrcek [facility] [address] [address] 09/28/2025 Caridad Svrcek [facility] [address] [address] 09/28/2025 Caridad Svrcek [facility] [address] [address] 09/29/2025 Caridad Svrcek [facility] [address] [address] 10/21/2025 Caridad Svrcek [facility] [address] [address] 11/22/2025 Caridad Svrcek Assessments Encounter Date Diagnosis (ICD Code) Assessment Notes Treatment Notes Treatment Clinical Notes Section Notes 12/28/2024 Memory changes (ICD-10 - R41.3) #Memory changes. Patient and family have noticed changes in his memory and difficulty recalling situations. Mini-Mental status exam done in the office today scored 27 out of 30. Discussed in detail with patient. Will get lab workup. He is interested in seeing [facility] and is requesting a referral today. Will also refer to [facility] neurology and send for brain MRI. Follow-up pending results. #Compulsive buying. He has had an issue with compulsive spending for many years resulting in significant financial issues. He is currently on Celexa and would like to pursue further help with psychiatry and therapy. Requesting referral to [facility] behavioral [facility]. His family is very involved and supportive. As above we will do further workup with labs imaging and referral. Case discussed with collaborating physician Moustapha Brooks who reviewed the assessment and plan. Chart, medications, labs, vital signs reviewed. Dictation was accomplished with the use of [employer] voice recognition software, prone to medical misidentifications [...] lab workup. He is interested in seeing [facility] and is requesting a referral today. Will also refer to [facility] neurology and send for brain MRI. Follow-up pending results. #Compulsive buying. He has had an issue with compulsive spending for many years resulting in significant financial issues. He is currently on Celexa and would like to pursue further help with psychiatry and therapy. Requesting referral to [facility] behavioral [facility]. His family is very involved and supportive. As above we will do further workup with labs imaging and referral. Case discussed with collaborating physician Moustapha Brooks who reviewed the assessment and plan. Chart, medications, labs, vital signs reviewed. Dictation was accomplished with the use of [employer] voice recognition software, prone to medical misidentifications [...] white blood cell (WBC) (ICD-10 - D72.9) 01/13/2025 Nasal congestion (ICD-10 - R09.81) Patient [...] Dictation was accomplished with the use of [employer] voice recognition software, prone to medical misidentifications [...] Dictation was accomplished with the use of [employer] voice recognition software, prone to medical misidentifications [...] Dictation was accomplished with the use of [employer] voice recognition software, prone to medical misidentifications [...] Dictation was accomplished with the use of [employer] voice recognition software, prone to medical misidentifications [...] fracture. T8. CT ordered by specialist in [place] reviewd. Planning for Kyphoplasty in [place]- awaiting appt. Will discuss with his specialist this afternoon. Tramadol ineffective for pain control. Unfortunately, he is traveling to [place] Saturday with his grandchildren to go to [place]. Discussed No rides, lifting etc. He will be using a scooter while there. WIll trial Journavx for pain control. Discussed signs/symptoms to monitor for. He will let me know once he has kyphoplasty appt. Case discussed with collaborating physician Moustapha Brooks who reviewed the assessment and plan. Chart, medications, labs, vital signs reviewed. Dictation was accomplished with the use of [employer] voice recognition software, prone to medical misidentifications [...] Dictation was accomplished with the use of Dragon voice recognition software, prone to medical misidentifications [...] Dictation was accomplished with the use of [employer] voice recognition software, prone to medical misidentifications [...] review of Tiffanie Kauffman PA-C note from [facility] patient will receive yearly Reclast for osteoporosis treatment pending dental clearance. All questions answered to the patients satisfaction. Patient demonstrates understanding of diagnosis and treatments discussed. Follow-up at next scheduled appointment, sooner should any questions/concerns arise. Case discussed with collaborating physician Jose Brooks who has reviewed the assessment/plan. Chart, medications, labs, and vital signs reviewed. Dictation completed with the use of [employer] voice recognition software, prone to medical misidentifications [...] review of Tiffanie Kauffman PA-C note from [facility] patient will receive yearly Reclast for osteoporosis treatment pending dental clearance. All questions answered to the patients satisfaction. Patient demonstrates understanding of diagnosis and treatments discussed. Follow-up at next scheduled appointment, sooner should any questions/concerns arise. Case discussed with collaborating physician Jose Brooks who has reviewed the assessment/plan. Chart, medications, labs, and vital signs reviewed. Dictation completed with the use of [employer] voice recognition software, prone to medical misidentifications and grammatical errors. All errors are unintentional. Although the practitioner does try to identify and correct errors, some may be present. Please do not hesitate to contact the practitioner for clarification. 08/10/2025 Syncope and collapse (ICD-10 - R55) #Syncope. Episode of syncope after playing golf. He was hospitalized at [facility] over night. Has been feeling well since. [...] medications. Has follow-up with his specialist in [place] next week and is feeling anxious about this. Will follow-up with me pending those results. #Hypertension. Blood pressure at goal today. Continue current regimen. Case discussed with collaborating physician Moustapha Brooks who reviewed the assessment and plan. Chart, medications, labs, vital signs reviewed. Dictation was accomplished with the use of [employer] voice recognition software, prone to medical misidentifications and grammatical errors. This is unintentional and the practitioner does try to identify and correct these, but some could still be present. Please do not hesitate to contact practitioner for clarification. All questions answered to patients satisfaction. Patient verbalized understanding of diagnosis and treatments explained. To call sooner prior to next visit it any questions/concerns arise. 09/20/2025 Thoracic back pain, unspecified back pain laterality, unspecified chronicity (ICD-10 - M54.6) #Thoracic and low back pain. Status post fall off of golf cart from a stationary position 10 days ago. Has had increased no redness since then. Prior history of T8 compression fracture this past year. Will get updated x-rays of thoracic lumbar and sacral spine. No significant point tenderness on exam but mild tenderness to mid back and low back. Does have tramadol to use as needed. Reviewed proper use and risk benefits adverse effects of medication. Advised to avoid any heavy lifting or significant activity in the interim. #ENE- using CPAP nightly. # Chronic anticoagulation. Denies hitting his head. No loss of consciousness. No bruising or bleeding. #Memory changes. He is finally scheduled with neuropsych for formal testing on . Will follow-up pending results. case discussed with collaborating physician Moustapha Brooks who reviewed the assessment and plan. Chart, medications, labs, vital signs reviewed. Dictation was accomplished with the use of [employer] voice recognition software, prone to medical misidentifications and grammatical errors. This is unintentional and the practitioner does try to identify and correct these, but some could still be present. Please do not hesitate to contact practitioner for clarification. All questions answered to patients satisfaction. Patient verbalized understanding of diagnosis and treatments explained. To call sooner prior to next visit it any questions/concerns arise. 09/20/2025 Low back pain at multiple sites (ICD-10 - M54.50) #Thoracic and low back pain. Status post fall off of golf cart from a stationary position 10 days ago. Has had increased no redness since then. Prior history of T8 compression fracture this past year. Will get updated x-rays of thoracic lumbar and sacral spine. No significant point tenderness on exam but mild tenderness to mid back and low back. Does have tramadol to use as needed. Reviewed proper use and risk benefits adverse effects of medication. Advised to avoid any heavy lifting or significant activity in the interim. #ENE- using CPAP nightly. # Chronic anticoagulation. Denies hitting his head. No loss of consciousness. No bruising or bleeding. #Memory changes. He is finally scheduled with neuropsych for formal testing on . Will follow-up pending results. case discussed with collaborating physician Moustapha Brooks who reviewed the assessment and plan. Chart, medications, labs, vital signs reviewed. Dictation was accomplished with the use of [employer] voice recognition software, prone to medical misidentifications and grammatical errors. This is unintentional and the practitioner does try to identify and correct these, but some could still be present. Please do not hesitate to contact practitioner for clarification. All questions answered to patients satisfaction. Patient verbalized understanding of diagnosis and treatments explained. To call sooner prior to next visit it any questions/concerns arise. 10/12/2025 Thoracic back pain, unspecified back pain laterality, unspecified chronicity (ICD-10 - M54.6) #URI. Persistent URI symptoms with sore throat, productive cough and nasal congestion x 7 to 10 days without improvement. COVID flu RSV and strep test negative in the office. Will treat with azithromycin. He has upcoming dental procedure next week. Discussed follow-up if no improvement prior. Also discussed potential impact of antibiotics on INR and advised to notify coumadin clinic. #Thoracic and low back pain. Compression frx noted at T12 and L3 on recent xrays. He notified his specialist and has follow up with them this week to discuss further. Previous T8 compression frx earlier this year. Pain has been manageable. #ENE- using CPAP nightly. # Chronic anticoagulation. On coumadin, managed by coumadin clinic. Will hold 3 days prior to dental procedure. #Memory changes. He had neuropsych testing done and is awaiting results. #HTN. Controlled on current regimen. #Hypothyroid. Due for updated labs. case discussed with collaborating physician Moustapha Brooks who reviewed the assessment and plan. Chart, medications, labs, vital signs reviewed. Dictation was accomplished with the use of [employer] voice recognition software, prone to medical misidentifications and grammatical errors. This is unintentional and the practitioner does try to identify and correct these, but some could still be present. Please do not hesitate to contact practitioner for clarification. All questions answered to patients satisfaction. Patient verbalized understanding of diagnosis and treatments explained. To call sooner prior to next visit it any questions/concerns arise. 10/12/2025 URI, acute (ICD-10 - J06.9) #URI. Persistent URI symptoms with sore throat, productive cough and nasal congestion x 7 to 10 days without improvement. COVID flu RSV and strep test negative in the office. Will treat with azithromycin. He has upcoming dental procedure next week. Discussed follow-up if no improvement prior. Also discussed potential impact of antibiotics on INR and advised to notify coumadin clinic. #Thoracic and low back pain. Compression frx noted at T12 and L3 on recent xrays. He notified his specialist and has follow up with them this week to discuss further. Previous T8 compression frx earlier this year. Pain has been manageable. #ENE- using CPAP nightly. # Chronic anticoagulation. On coumadin, managed by coumadin clinic. Will hold 3 days prior to dental procedure. #Memory changes. He had neuropsych testing done and is awaiting results. #HTN. Controlled on current regimen. #Hypothyroid. Due for updated labs. case discussed with collaborating physician Moustapha Brooks who reviewed the assessment and plan. Chart, medications, labs, vital signs reviewed. Dictation was accomplished with the use of [employer] voice recognition software, prone to medical misidentifications [...] Followed by pulmonology. #Periodic limb movement disorder. [employer] wanted to start him on ropinirole for restless legs. He has declined to do so. We did discuss effect of poor sleep on memory and mood. Will request copy of sleep study to review. Case discussed with collaborating physician Moustapha Brooks who reviewed the assessment and plan. Chart, medications, labs, vital signs reviewed. Dictation was accomplished with the use of [employer] voice recognition software, prone to medical misidentifications [...] Followed by pulmonology. #Periodic limb movement disorder. [employer] wanted to start him on ropinirole for restless legs. He has declined to do so. We did discuss effect of poor sleep on memory and mood. Will request copy of sleep study to review. Case discussed with collaborating physician Moustapha Brooks who reviewed the assessment and plan. Chart, medications, labs, vital signs reviewed. Dictation was accomplished with the use of [employer] voice recognition software, prone to medical misidentifications [...] next visit it any questions/concerns arise. 01/12/2025 ENE on CPAP (ICD-10 - G47.33) [...] Followed by pulmonology. #Periodic limb movement disorder. [employer] wanted to start him on ropinirole for restless legs. He has declined to do so. We did discuss effect of poor sleep on memory and mood. Will request copy of sleep study to review. Case discussed with collaborating physician Moustapha Brooks who reviewed the assessment and plan. Chart, medications, labs, vital signs reviewed. Dictation was accomplished with the use of [employer] voice recognition software, prone to medical misidentifications and grammatical errors. This is unintentional and the practitioner does try to identify and correct these, but some could still be present. Please do not hesitate to contact practitioner for clarification. All questions answered to patients satisfaction. Patient verbalized understanding of diagnosis and treatments explained. To call sooner prior to next visit it any questions/concerns arise. 10/12/2025 Low back pain at multiple sites (ICD-10 - M54.50) #URI. Persistent URI symptoms with sore throat, productive cough and nasal congestion x 7 to 10 days without improvement. COVID flu RSV and strep test negative in the office. Will treat with azithromycin. He has upcoming dental procedure next week. Discussed follow-up if no improvement prior. Also discussed potential impact of antibiotics on INR and advised to notify coumadin clinic. #Thoracic and low back pain. Compression frx noted at T12 and L3 on recent xrays. He notified his specialist and has follow up with them this week to discuss further. Previous T8 compression frx earlier this year. Pain has been manageable. #ENE- using CPAP nightly. # Chronic anticoagulation. On coumadin, managed by coumadin clinic. Will hold 3 days prior to dental procedure. #Memory changes. He had neuropsych testing done and is awaiting results. #HTN. Controlled on current regimen. #Hypothyroid. Due for updated labs. case discussed with collaborating physician Moustapha Brooks who reviewed the assessment and plan. Chart, medications, labs, vital signs reviewed. Dictation was accomplished with the use of [employer] voice recognition software, prone to medical misidentifications and grammatical errors. This is unintentional and the practitioner does try to identify and correct these, but some could still be present. Please do not hesitate to contact practitioner for clarification. All questions answered to patients satisfaction. Patient verbalized understanding of diagnosis and treatments explained. To call sooner prior to next visit it any questions/concerns arise. 09/20/2025 ENE on CPAP (ICD-10 - G47.33) #Thoracic and low back pain. Status post fall off of golf cart from a stationary position 10 days ago. Has had increased no redness since then. Prior history of T8 compression fracture this past year. Will get updated x-rays of thoracic lumbar and sacral spine. No significant point tenderness on exam but mild tenderness to mid back and low back. Does have tramadol to use as needed. Reviewed proper use and risk benefits adverse effects of medication. Advised to avoid any heavy lifting or significant activity in the interim. #ENE- using CPAP nightly. # Chronic anticoagulation. Denies hitting his head. No loss of consciousness. No bruising or bleeding. #Memory changes. He is finally scheduled with neuropsych for formal testing on . Will follow-up pending results. case discussed with collaborating physician Moustapha Brooks who reviewed the assessment and plan. Chart, medications, labs, vital signs reviewed. Dictation was accomplished with the use of [employer] voice recognition software, prone to medical misidentifications [...] after playing golf. He was hospitalized at [facility] over night. Has been feeling well since. [...] medications. Has follow-up with his specialist in [place] next week and is feeling anxious about this. Will follow-up with me pending those results. #Hypertension. Blood pressure at goal today. Continue current regimen. Case discussed with collaborating physician Moustapha Brooks who reviewed the assessment and plan. Chart, medications, labs, vital signs reviewed. Dictation was accomplished with the use of [employer] voice recognition software, prone to medical misidentifications [...] Dictation was accomplished with the use of [employer] voice recognition software, prone to medical misidentifications [...] Dictation was accomplished with the use of [employer] voice recognition software, prone to medical misidentifications [...] Dictation was accomplished with the use of [employer] voice recognition software, prone to medical misidentifications and grammatical errors. This is unintentional and the practitioner does try to identify and correct these, but some could still be present. Please do not hesitate to contact the practitioner for clarification. 02/16/2025 ENE on CPAP (ICD-10 - G47.33) [...] Dictation was accomplished with the use of [employer] voice recognition software, prone to medical misidentifications [...] Dictation was accomplished with the use of [employer] voice recognition software, prone to medical misidentifications and grammatical errors. This is unintentional and the practitioner does try to identify and correct these, but some could still be present. Please do not hesitate to contact practitioner for clarification. All questions answered to patients satisfaction. Patient verbalized understanding of diagnosis and treatments explained. To call sooner prior to next visit it any questions/concerns arise. 09/20/2025 Chronic anticoagulation (ICD-10 - Z79.01) #Thoracic and low back pain. Status post fall off of golf cart from a stationary position 10 days ago. Has had increased no redness since then. Prior history of T8 compression fracture this past year. Will get updated x-rays of thoracic lumbar and sacral spine. No significant point tenderness on exam but mild tenderness to mid back and low back. Does have tramadol to use as needed. Reviewed proper use and risk benefits adverse effects of medication. Advised to avoid any heavy lifting or significant activity in the interim. #ENE- using CPAP nightly. # Chronic anticoagulation. Denies hitting his head. No loss of consciousness. No bruising or bleeding. #Memory changes. He is finally scheduled with neuropsych for formal testing on . Will follow-up pending results. case discussed with collaborating physician Moustapha Brooks who reviewed the assessment and plan. Chart, medications, labs, vital signs reviewed. Dictation was accomplished with the use of [employer] voice recognition software, prone to medical misidentifications [...] after playing golf. He was hospitalized at [facility] over night. Has been feeling well since. [...] medications. Has follow-up with his specialist in [place] next week and is feeling anxious about this. Will follow-up with me pending those results. #Hypertension. Blood pressure at goal today. Continue current regimen. Case discussed with collaborating physician Moustapha Brooks who reviewed the assessment and plan. Chart, medications, labs, vital signs reviewed. Dictation was accomplished with the use of [employer] voice recognition software, prone to medical misidentifications and grammatical errors. This is unintentional and the practitioner does try to identify and correct these, but some could still be present. Please do not hesitate to contact practitioner for clarification. All questions answered to patients satisfaction. Patient verbalized understanding of diagnosis and treatments explained. To call sooner prior to next visit it any questions/concerns arise. 10/12/2025 ENE on CPAP (ICD-10 - G47.33) #URI. Persistent URI symptoms with sore throat, productive cough and nasal congestion x 7 to 10 days without improvement. COVID flu RSV and strep test negative in the office. Will treat with azithromycin. He has upcoming dental procedure next week. Discussed follow-up if no improvement prior. Also discussed potential impact of antibiotics on INR and advised to notify coumadin clinic. #Thoracic and low back pain. Compression frx noted at T12 and L3 on recent xrays. He notified his specialist and has follow up with them this week to discuss further. Previous T8 compression frx earlier this year. Pain has been manageable. #ENE- using CPAP nightly. # Chronic anticoagulation. On coumadin, managed by coumadin clinic. Will hold 3 days prior to dental procedure. #Memory changes. He had neuropsych testing done and is awaiting results. #HTN. Controlled on current regimen. #Hypothyroid. Due for updated labs. case discussed with collaborating physician Moustapha Brooks who reviewed the assessment and plan. Chart, medications, labs, vital signs reviewed. Dictation was accomplished with the use of [employer] voice recognition software, prone to medical misidentifications [...] Followed by pulmonology. #Periodic limb movement disorder. [employer] wanted to start him on ropinirole for restless legs. He has declined to do so. We did discuss effect of poor sleep on memory and mood. Will request copy of sleep study to review. Case discussed with collaborating physician Moustapha Brooks who reviewed the assessment and plan. Chart, medications, labs, vital signs reviewed. Dictation was accomplished with the use of [employer] voice recognition software, prone to medical misidentifications and grammatical errors. This is unintentional and the practitioner does try to identify and correct these, but some could still be present. Please do not hesitate to contact practitioner for clarification. All questions answered to patients satisfaction. Patient verbalized understanding of diagnosis and treatments explained. To call sooner prior to next visit it any questions/concerns arise. 10/12/2025 Chronic anticoagulation (ICD-10 - Z79.01) #URI. Persistent URI symptoms with sore throat, productive cough and nasal congestion x 7 to 10 days without improvement. COVID flu RSV and strep test negative in the office. Will treat with azithromycin. He has upcoming dental procedure next week. Discussed follow-up if no improvement prior. Also discussed potential impact of antibiotics on INR and advised to notify coumadin clinic. #Thoracic and low back pain. Compression frx noted at T12 and L3 on recent xrays. He notified his specialist and has follow up with them this week to discuss further. Previous T8 compression frx earlier this year. Pain has been manageable. #ENE- using CPAP nightly. # Chronic anticoagulation. On coumadin, managed by coumadin clinic. Will hold 3 days prior to dental procedure. #Memory changes. He had neuropsych testing done and is awaiting results. #HTN. Controlled on current regimen. #Hypothyroid. Due for updated labs. case discussed with collaborating physician Moustapha Brooks who reviewed the assessment and plan. Chart, medications, labs, vital signs reviewed. Dictation was accomplished with the use of [employer] voice recognition software, prone to medical misidentifications and grammatical errors. This is unintentional and the practitioner does try to identify and correct these, but some could still be present. Please do not hesitate to contact practitioner for clarification. All questions answered to patients satisfaction. Patient verbalized understanding of diagnosis and treatments explained. To call sooner prior to next visit it any questions/concerns arise. 09/20/2025 Memory changes (ICD-10 - R41.3) #Thoracic and low back pain. Status post fall off of golf cart from a stationary position 10 days ago. Has had increased no redness since then. Prior history of T8 compression fracture this past year. Will get updated x-rays of thoracic lumbar and sacral spine. No significant point tenderness on exam but mild tenderness to mid back and low back. Does have tramadol to use as needed. Reviewed proper use and risk benefits adverse effects of medication. Advised to avoid any heavy lifting or significant activity in the interim. #ENE- using CPAP nightly. # Chronic anticoagulation. Denies hitting his head. No loss of consciousness. No bruising or bleeding. #Memory changes. He is finally scheduled with neuropsych for formal testing on . Will follow-up pending results. case discussed with collaborating physician Moustapha Brooks who reviewed the assessment and plan. Chart, medications, labs, vital signs reviewed. Dictation was accomplished with the use of [employer] voice recognition software, prone to medical misidentifications [...] Dictation was accomplished with the use of [employer] voice recognition software, prone to medical misidentifications [...] after playing golf. He was hospitalized at [facility] over night. Has been feeling well since. [...] medications. Has follow-up with his specialist in [place] next week and is feeling anxious about this. Will follow-up with me pending those results. #Hypertension. Blood pressure at goal today. Continue current regimen. Case discussed with collaborating physician Moustapha Brooks who reviewed the assessment and plan. Chart, medications, labs, vital signs reviewed. Dictation was accomplished with the use of [employer] voice recognition software, prone to medical misidentifications [...] Dictation was accomplished with the use of [employer] voice recognition software, prone to medical misidentifications [...] Dictation was accomplished with the use of [employer] voice recognition software, prone to medical misidentifications and grammatical errors. This is unintentional and the practitioner does try to identify and correct these, but some could still be present. Please do not hesitate to contact practitioner for clarification. All questions answered to patients satisfaction. Patient verbalized understanding of diagnosis and treatments explained. To call sooner prior to next visit it any questions/concerns arise. 09/20/2025 Essential (primary) hypertension (ICD-10 - I10) #Thoracic and low back pain. Status post fall off of golf cart from a stationary position 10 days ago. Has had increased no redness since then. Prior history of T8 compression fracture this past year. Will get updated x-rays of thoracic lumbar and sacral spine. No significant point tenderness on exam but mild tenderness to mid back and low back. Does have tramadol to use as needed. Reviewed proper use and risk benefits adverse effects of medication. Advised to avoid any heavy lifting or significant activity in the interim. #ENE- using CPAP nightly. # Chronic anticoagulation. Denies hitting his head. No loss of consciousness. No bruising or bleeding. #Memory changes. He is finally scheduled with neuropsych for formal testing on . Will follow-up pending results. case discussed with collaborating physician Moustapha Brooks who reviewed the assessment and plan. Chart, medications, labs, vital signs reviewed. Dictation was accomplished with the use of [employer] voice recognition software, prone to medical misidentifications and grammatical errors. This is unintentional and the practitioner does try to identify and correct these, but some could still be present. Please do not hesitate to contact practitioner for clarification. All questions answered to patients satisfaction. Patient verbalized understanding of diagnosis and treatments explained. To call sooner prior to next visit it any questions/concerns arise. 10/12/2025 Memory changes (ICD-10 - R41.3) #URI. Persistent URI symptoms with sore throat, productive cough and nasal congestion x 7 to 10 days without improvement. COVID flu RSV and strep test negative in the office. Will treat with azithromycin. He has upcoming dental procedure next week. Discussed follow-up if no improvement prior. Also discussed potential impact of antibiotics on INR and advised to notify coumadin clinic. #Thoracic and low back pain. Compression frx noted at T12 and L3 on recent xrays. He notified his specialist and has follow up with them this week to discuss further. Previous T8 compression frx earlier this year. Pain has been manageable. #ENE- using CPAP nightly. # Chronic anticoagulation. On coumadin, managed by coumadin clinic. Will hold 3 days prior to dental procedure. #Memory changes. He had neuropsych testing done and is awaiting results. #HTN. Controlled on current regimen. #Hypothyroid. Due for updated labs. case discussed with collaborating physician Moustapha Brooks who reviewed the assessment and plan. Chart, medications, labs, vital signs reviewed. Dictation was accomplished with the use of [employer] voice recognition software, prone to medical misidentifications and grammatical errors. This is unintentional and the practitioner does try to identify and correct these, but some could still be present. Please do not hesitate to contact practitioner for clarification. All questions answered to patients satisfaction. Patient verbalized understanding of diagnosis and treatments explained. To call sooner prior to next visit it any questions/concerns arise. 10/12/2025 Essential (primary) hypertension (ICD-10 - I10) #URI. Persistent URI symptoms with sore throat, productive cough and nasal congestion x 7 to 10 days without improvement. COVID flu RSV and strep test negative in the office. Will treat with azithromycin. He has upcoming dental procedure next week. Discussed follow-up if no improvement prior. Also discussed potential impact of antibiotics on INR and advised to notify coumadin clinic. #Thoracic and low back pain. Compression frx noted at T12 and L3 on recent xrays. He notified his specialist and has follow up with them this week to discuss further. Previous T8 compression frx earlier this year. Pain has been manageable. #ENE- using CPAP nightly. # Chronic anticoagulation. On coumadin, managed by coumadin clinic. Will hold 3 days prior to dental procedure. #Memory changes. He had neuropsych testing done and is awaiting results. #HTN. Controlled on current regimen. #Hypothyroid. Due for updated labs. case discussed with collaborating physician Mousatpha Brooks who reviewed the assessment and plan. Chart, medications, labs, vital signs reviewed. Dictation was accomplished with the use of [employer] voice recognition software, prone to medical misidentifications [...] Dictation was accomplished with the use of [employer] voice recognition software, prone to medical misidentifications [...] Dictation was accomplished with the use of Dragon voice recognition software, prone to medical misidentifications and grammatical errors. This is unintentional and the practitioner does try to identify and correct these, but some could still be present. Please do not hesitate to contact practitioner for clarification. All questions answered to patients satisfaction. Patient verbalized understanding of diagnosis and treatments explained. To call sooner prior to next visit it any questions/concerns arise. 10/12/2025 Hypothyroid (ICD-10 - E03.9) #URI. Persistent URI symptoms with sore throat, productive cough and nasal congestion x 7 to 10 days without improvement. COVID flu RSV and strep test negative in the office. Will treat with azithromycin. He has upcoming dental procedure next week. Discussed follow-up if no improvement prior. Also discussed potential impact of antibiotics on INR and advised to notify coumadin clinic. #Thoracic and low back pain. Compression frx noted at T12 and L3 on recent xrays. He notified his specialist and has follow up with them this week to discuss further. Previous T8 compression frx earlier this year. Pain has been manageable. #ENE- using CPAP nightly. # Chronic anticoagulation. On coumadin, managed by coumadin clinic. Will hold 3 days prior to dental procedure. #Memory changes. He had neuropsych testing done and is awaiting results. #HTN. Controlled on current regimen. #Hypothyroid. Due for updated labs. case discussed with collaborating physician Moustapha Brooks who reviewed the assessment and plan. Chart, medications, labs, vital signs reviewed. Dictation was accomplished with the use of [employer] voice recognition software, prone to medical misidentifications [...] Lumbosacral Spines 01/22/2019 X ray : Spines, lumbar 09/20/2025 X ray : Spines, thoracic spine X ray : Spines, thoracic spine MRI : Brain 12/30/2024 Chest X-ray PA and lateral 03/25/2018 MRI : Lumbar without contrast 12/26/2021 1,25OH VITAMIN D 12/28/2024 CBC (COMPLETE BLOOD COUNT) 10/20/2018 CBC (COMPLETE BLOOD COUNT) 06/16/2020 CBC (COMPLETE BLOOD COUNT) 06/16/2018 CBC (COMPLETE BLOOD COUNT) 05/11/2025 CBC (COMPLETE BLOOD COUNT) 12/27/2020 CBC (COMPLETE BLOOD COUNT) 09/21/2020 COMPREHENSIVE METABOLIC PANEL 09/21/2020 COMPREHENSIVE METABOLIC PANEL 12/27/2020 COMPREHENSIVE METABOLIC PANEL 05/11/2025 COMPREHENSIVE METABOLIC PANEL 06/16/2018 COMPREHENSIVE METABOLIC PANEL 10/12/2025 COMPREHENSIVE METABOLIC PANEL 10/20/2018 COMPREHENSIVE METABOLIC PANEL 06/16/2020 HEMOGLOBIN A1C 10/20/2018 HEMOGLOBIN A1C 10/12/2025 HEMOGLOBIN A1C 06/16/2018 HEMOGLOBIN A1C 05/11/2025 HEMOGLOBIN A1C 12/27/2020 HEMOGLOBIN A1C 09/21/2020 LIPID PANEL 12/27/2020 LIPID PANEL 09/21/2020 LIPID PANEL 05/11/2025 LIPID PANEL 06/16/2018 LIPID PANEL 10/12/2025 LIPID PANEL 10/20/2018 LIPID PANEL 06/16/2020 OCCULT BLOOD SCREEN X 3 07/22/2024 PSA, SCREEN 06/16/2018 TSH 09/21/2020 TSH 10/12/2025 TSH WITH REFLEX TO FT4 06/16/2018 URIC ACID 06/16/2018 URINALYSIS W/REFLEX CULTURE 05/11/2025 URINALYSIS, COMPLETE 12/27/2020 URINALYSIS, COMPLETE 06/16/2018 URINALYSIS, COMPLETE 06/16/2020 CBC 12/28/2024 Comprehensive Metabolic Panel 12/28/2024 CBC with Differential 01/07/2025 CBC with Differential 10/12/2025 XR Ankle 3+ Views LT 11/10/2018 XR [...] CBC (INCLUDES DIFF/PLT) 07/22/2024 CBC (INCLUDES DIFF/PLT) 06/16/2024 CBC (INCLUDES DIFF/PLT) 06/11/2022 URINALYSIS, COMPLETE 11/13/2022 URINALYSIS, COMPLETE 06/11/2022 HEMOGLOBIN A1c 06/11/2022 TSH 06/16/2024 Next Appt Details Provider Name:Caridad Conn, 0 01/12/2026 10:00:00 AM, [address] [facility], [facility] [address], [place], [address], Insurance Providers Payer Name Payer Address Payer Phone Subscriber Number Group Number Insured Name Patient Relationship to Insured Coverage Start Date Coverage End Date Medicare Part B J14 [address] [place] [address] [id number] JOSE MANUEL KAM Self - patient is the insured 3 [employer] [address] [place] [address] [id number] JOSE MANUEL KAM Self - patient is [...]
--- OUTSIDE RECORDS SUMMARY | 2025-11-29 15:26 | XMS_ITS | Encounter Summary ---
Author Organization [facility] Address [address] [facility] [address] [place] [phone] Phone Care Team Providers Care Lease Administration Analyst Name Role Phone Kirstin Brooks MD Primary Care Provider [phone] Krystyna Bowles MD, PhD Unavailable [phone] Kota Self MD Unavailable Audrey Bush MD, MPH Unavailable Renee Hood RN Unavailable [email or web address] Shreya Foster RN Unavailable [email or web address] Francheska Scott RN Unavailable [email or web address] Prema Lee RN Unavailable Efe [email or web address] Shivam De Jesus MD, MINDI Unavailable [phone] Encounter Details Date Type Department Care Team (Late st Contact Info) Description 03/04/2025 Procedure Pass [facility] Cross Sectional Interventional Radiology [address] [place] [id number] Social History Tobacco Use Types Packs/Day Years [...] is your housing situation today? I have ovlin sing 01/14/2025 How many times have you [...] 8:10 AM EDT Blood Draw Laboratory Services, [facility] [address] [facility] [address] [place] [address] Audrey Bush MD, MPH [address] [place] [address] [email or web address] 02/16/2026 9:30 AM EDT Office Visit [facility], [facility] [address] [address] Audrey Bush MD, MPH [address] [place] [phone] [email or web address] documented as of this encounter Visit Diagnoses Not on filedocumented in this encounter Care Teams Lease Administration Analyst Relationship Specialty Start Date End Date Kirstin Brooks MD [address] [place] [id number] PCP - General Internal Medicine 01/03/22 Krystyna Bowles MD, PhD [address] [place] [phone] [email or web address] [email or web address] Oncology 07/25/23 Kota Self MD [address] [place] [address] [email or web address] [email or web address] Oncology 09/03/23 Audrey Bush MD, MPH [address] [place] [phone] [email or web address] 09/03/23 Renee Hood, ELANA [address] [place] [phone] [email or web address] Primary Infusion Nurse 10/21/24 Shreya Waldron, ELANA [address] [place] [phone] [email or web address] Associate Infusion Nurse 10/21/24 Francheska Jacobs, RN [address] [place] [address] [place] [phone] [email or web address] Associate Infusion Nurse 10/21/24 Prema Lee RN [address] [place] [address] [email or web address] Associate Infusion Nurse 01/19/25 Shivam De Jesus MD, MINDI [address] [place] [phone] [email or web address] Diagnostic Radiology 03/23/25 documented as of this encounter Additional Source Comments The information contained in this document represents components of the legal health record. It is not the complete legal health record.[facility]
--- OUTSIDE RECORDS SUMMARY | 2025-11-29 15:26 | XMS_ITS | Encounter Summary ---
Author Organization [facility] Address [address] [place] [address] Care Team Providers Care Mortar Maker Name Role Phone Kirstin Brooks MD Primary Care Provider [phone] Reason for Visit * Reason Onset Date Comments book from recall 11/11/2025 Encounter Details Date Type Department Care Team (Late st Contact Info) Description 11/11/[address] [facility] - [facility] [address] [facility] [address] [place] [phone] Guera Blum PA [address] [place] [address] [place] [phone] Social History Tobacco Use Types Packs/Day Years [...] as of this encounter Progress Notes * Hilda Esquivel - 11/11/2025 1:43 PM EST I called the patient to schedule a follow up office visit and no answer. I left a message on the machine with details and the number to call back and schedule at their earliest convenience. documented in this encounter Plan of Treatment Upcoming Encounters Date Type Department Care Team (Late st Contact Info) Description 02/21/2026 1:40 PM EDT Office Visit [facility] - [address] [facility] [address] [place] [phone] Guera Blum PA [address] [place] [address] [place] [phone] 02/23/2026 3:00 PM EDT Office Visit Pulmonology - [place] [address] [facility] [address] [place] [address] Irma Patterson MD [address] [place] [phone] documented as of this encounter Visit Diagnoses Not on filedocumented in this encounter Care Teams Mortar Maker Relationship Specialty Start Date End Date Kirstin Brooks MD [address] [place] [phone] PCP - General Internal Medicine 01/11/25 documented as of this encounter
--- OUTSIDE RECORDS SUMMARY | 2025-11-29 15:26 | XMS_ITS | Encounter Summary ---
Author Organization [facility] Address [address] [place] [address] Care Team Providers Care Repairer Welding Systems [employer] Equipment Name Role Phone Kirstin Brooks MD Primary Care Provider [phone] Encounter Details Date Type Department Care Team (Late Contact Info) Description 11/11/2025 Telephone [facility] Cardiology [facility] - [facility] [address] [facility] [address] [place] [address] Tashia Ahmadi Social History Tobacco Use Types Packs/Day Years [...] as of this encounter Progress Notes * Tashia Ahmadi - 11/11/2025 8:48 AM EST 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 documented in this encounter Plan of Treatment Upcoming Encounters Date Type Department Care Team (Late Contact Info) Description 02/21/2026 1:40 PM EDT Office Visit [facility] Card[facility] - [facility] [address] [facility] [address] [place] [phone] Guera Blum PA [address] [place] [address] [address] [place] [phone] 02/23/2026 3:00 PM EDT Office Visit Pulmonology - [place] [address] [place] [phone] Irma Patterson MD [address] [place] [phone] documented as of this encounter Visit Diagnoses Not on filedocumented in this encounter Care Teams Repairer [employer]ding Systems [employer] Equipment Relationship Specialty Start Date End Date Kirstin Brooks MD [address] [place] [id number] PCP - General Internal Medicine 01/11/25 documented as of this encounter
--- OUTSIDE RECORDS SUMMARY | 2025-11-29 15:26 | XMS_ITS | Clinical Summary ---
Author Organization [facility] Address [address] [facility] [address] [place] [address] Phone Care Team Providers Care Health Professional Name Role Phone Kirstin Brooks MD Primary Care Provider [phone] Krystyna Bowles MD, PhD Unavailable [phone] Kota Self MD Unavailable Audrey Bush MD, MPH Unavailable Renee Hood RN Unavailable Brina [email or web address] Shreya Foster RN Unavailable [email or web address]. Francheska Scott RN Unavailable [email or web address]@ [email or web address].[facility] Prema Lee RN Unavailable Efe [email or web address] Shivam De Jesus MD, MINDI Unavailable [phone] Allergies Active Allergy Reactions Criticality Noted Date [...] mg by mouth daily. Active Ca cit-D3-mag#11-zi [id number]-bor (CALTRATE 600+D) 600 mg calcium- 800 unit-50 [...] Encounters Date Type Department Care Team Description 11/23/2025 1:00 PM EST Office Visit [facility], [facility] at [address] [address] Katalina Sharma PA-C Prostate cancer (Primary Dx) 10/14/2025 12:45 PM EST Telemedicine [facility] [address] [place] [address] Aman Low MD, MPH Spinal stenosis of lumbar region, unspecified whether neurogenic claudication present (Primary Dx) 10/07/2025 Ancillary Orders [facility] [address] [place] [address] Aman Low MD, MPH 10/05/2025 Ancillary Procedure [facility] [address] [place] [address] Aman Low MD, MPH 09/24/2025 Orders Only [facility] [address] [place] [address] Tori Oconnell NP Lumbosacral spinal stenosis (Primary Dx); Spondylolisthesis of thoracolumbar region 09/02/2025 Orders Only [facility], [facility] [address] [facility], 11th [place] [address] Tiffanie Kauffman PA-C from Last 3 Months Immunizations Immunization Administration [...] Sign Reading Time Taken Comments Blood Pressure 123/70 11/23/2025 12:07 PM EST Pulse 85 11/23/2025 12:07 PM EST Temperature 36.1 C (97 F) 11/23/2025 12:07 PM EST Respiratory Rate 17 11/23/2025 12:07 PM EST Oxygen Saturation 98% 11/23/2025 12:07 PM EST Inhaled Oxygen Concentration - - Weight 111 kg (244 lb 11.4 oz) 11/23/2025 12:07 PM EST Height 173.1 cm (5' 8.15 ) 11/23/2025 12:[address] Body Mass Index 37.04 11/23/2025 12:07 PM EST Plan of Treatment Upcoming Encounters Date Type Department Care Team (Late st Contact Info) Description 02/16/2026 8:10 AM EDT Blood Draw Laboratory Services, [facility] at [address] [address] Audrey Bush MD, MPH [address] [place] [address] [email or web address] 02/16/2026 9:30 AM EDT Office Visit [facility], [facility] at [address] [address] Audrey Bush MD, MPH [address] [place] [address] [email or web address] Health Maintenance Due Date Last Done Comments [...] 09/15/2024, 12/06/2023, Additional history exists BLOOD PRESSURE 05/24/2026 11/23/2025 CREATININE LEVEL 11/23/2026 11/23/2025, , 05/18/2025, Additional history exists POTASSIUM LEVEL 11/23/2026 11/23/2025, 08/02, 05/18/2025, Additional history exists Adult Td,Tdap Booster 03/05/2028 [...] this topic Medical Devices Implanted Type Area Diesel Maintenance Electrician Device Identifier Shelf Expiration Date Model / Serial / Lot Kit Mixing [employer] - [id number] Implanted:Qty: 1 on 03/22/2025 by Shivam De Jesus MD, MINDI at [facility] Left: Spine Thoracic [employer] S / / [id number] Kit Mixing [employer] - [id number] Implanted:Qty: 1 on 03/22/2025 by Shivam De Jesus MD, MINDI at [facility] Right: Spine Thoracic [employer] S / / [id number] Procedures Procedure Name Priority Date/Time Associated Diagnosis Comments CBC AND DIFFERENTIAL Routine 11/23/2025 11:49 AM EST Prostate cancer TESTOSTERONE, TOTAL Routine 11/23/2025 1 1:49 AM EST Prostate cancer PSA DIAGNOSTIC (MONITORING) Routine 11/23/2025 11:49 AM EST Prostate cancer COMPREHENSIVE METABOLIC PANEL (CMP) Routine 11/23/2025 11:49 AM EST Prostate cancer CBC AND DIFFERENTIAL Routine 11/23/2025 11:49 AM EST Prostate cancer MRI SPINE NEUROLOGIC FOCUS OUTSIDE (NO INTERPRETATION) Routine 10/05/2025 12:00 AM EST THYROID STIMULATING HORMONE (TSH) Routine 02/12/2024 9:36 AM EDT Prostate cancer from Last 3 Months or Most Recently Relevant to Health Maintenance Results * (ABNORMAL) Comprehensive Metabolic Panel (CMP) (11/23/2025 11:49 AM EST) Sodium 141 136 - 145 mmol/L 11/23/2025 12:18 PM EST [facility] Potassium 4.2 3.4 - 5.1 mmol/L 11/23/2025 12:18 PM EST [facility] Chloride 104 98 - 107 mmol/L 11/23/2025 12:18 PM EST [facility] CO2 25 20 - 31 mmol/L 11/23/2025 12:18 PM EST [facility] BUN 21 6 - 23 mg/dL 11/23/2025 12:18 PM EST [facility] Creatinine 1.27 0.60 - 1.30 mg/dL 11/23/2025 12:18 PM EST [facility] Glucose 107(H) 70 - 99 mg/dL 11/23/2025 12:18 PM EST [facility] Calcium 9.4 8.5 - 10.5 mg/dL 11/23/2025 12:18 PM EST [facility] AST 13 <41 U/L 11/23/2025 12:18 PM EST [facility] ALT 8 <42 U/L 11/23/2025 12:18 PM EST [facility] Alkaline Phosphatase 92 40 - 130 U/L 11/23/2025 12:18 PM EST [facility] Bilirubin, Total 0.4 0.0 - 1.2 mg/dL 11/23/2025 12:18 PM EST [facility] Total Protein 7.2 6.4 - 8.3 g/dL 11/23/2025 12:18 PM EST [facility] Albumin 4.1 3.5 - 5.2 g/dL 11/23/2025 12:18 PM EST [facility] Globulin 3.1 1.9 - 4.1 g/dL 11/23/2025 12:18 PM EST [facility] eGFR 61 >59 mL/min/1.7 3m2 11/23/2025 12:18 PM EST [facility] Comment:Estimated glomerular filtration rate calculated using the CKD-EPI refit equation. Anion Gap 12 3 - 17 mmol/L 11/23/2025 12:18 PM EST [facility] Blood (Blood) Venipuncture / Unknown 11/23/2025 11:49 AM EST 11/23/2025 11:51 AM EST Tiffanie Kauffman PA-C LAB BLOOD BKR ORDERABLES Fi nal Result [facility] [address] [address], [place] [phone] * Prostate Specific Antigen (PSA), Monitoring (11/23/2025 11:49 AM EST) PSA Monitoring <0.02 ng/mL 11/23/2025 12:35 PM EST [facility] Comment:Post radical prostat ectomy results should be <0.1 ng/mL. Post therapy for other types of treatment should be <1.0 ng/mL. Blood (Blood) Venipuncture / Unknown 11/23/2025 11:49 AM EST 11/23/2025 11:51 AM EST Narrative [facility] - 11/23/2025 12:35 PM EST Test performed by Rani electrochemiluminescent immunoassay (ECLIA). Results obtained by assays using different manufacturers or methods may not be comparable and cannot be used interchangeably for patient monitoring. us Tiffanie Kauffman PA-C LAB BLOOD BKR ORDERABLES Fi nal Result [facility] [address] [facility] [address] [place] [address], [place] [phone] * (ABNORMAL) CBC and Differential (11/23/2025 11:49 AM EST) WBC 6.82 4.00 - 11.00 K/uL 11/23/2025 11:54 AM EST [facility] RBC 4.31(L) 4.50 - 5.90 M/uL 11/23/2025 11:54 AM EST [facility] Hemoglobin 13.1(L) 13.5 - 17.5 g/dL 11/23/2025 11:54 AM EST [facility] Hematocrit 40.9(L) 41.0 - 53.0 % 11/23/2025 11:54 AM EST [facility] MCV 94.9 80.0 - 100.0 fL 11/23/2025 11:54 AM EST [facility] MCH 30.4 27.0 - 31.0 pg 11/23/2025 11:54 AM EST [facility] MCHC 32.0 32.0 - 36.0 g/dL 11/23/2025 11:54 AM EST [facility] MPV 9.6 8.4 - 12.0 fL 11/23/2025 11:54 AM EST [facility] RDW-CV 14.1 11.5 - 14.5 % 11/23/2025 11:54 AM EST [facility] PLT 220 150 - 450 K/uL 11/23/2025 11:54 AM EST [facility] Neutrophils 73.2 % 11/23/2025 11:54 AM EST [facility] Lymphocytes 13.6 % 11/23/2025 11:54 AM EST [facility] Monocytes 9.7 % 11/23/2025 11:54 AM EST [facility] Eosinophils 2.2 % 11/23/2025 11:54 AM EST [facility] Basophils 1.0 % 11/23/2025 11:54 AM EST [facility] Imm Grans 0.3 % 11/23/2025 11:54 AM EST [facility] NRBC 0.0 <=0.0 /100 WBCs 11/23/2025 11:54 AM EST [facility] Absolute Neutrophils 4.99 1.92 - 7.60 K/uL 11/23/2025 11:54 AM EST [facility] Absolute Lymphocytes 0.93 0.72 - 4.10 K/uL 11/23/2025 11:54 AM EST [facility] Absolute Monocytes 0.66 0.16 - 1.10 K/uL 11/23/2025 11:54 AM EST [facility] Absolute Eosinophils 0.15 0.00 - 0.50 K/uL 11/23/2025 11:54 AM EST [facility] Absolute Basophils 0.07 0.00 - 0.15 K/uL 11/23/2025 11:54 AM EST [facility] Absolute Imm Grans 0.02 0.00 - 0.09 K/uL 11/23/2025 11:54 AM EST [facility] Absolute NRBC 0.00 <=0.00 K cells/uL 11/23/2025 11:54 AM EST [facility] Absolute Neutrophils 4.99 1.92 - 7.60 K/uL 11/23/2025 11:54 AM EST [facility] Diff Type Auto 11/23/2025 11:54 AM EST [facility] Blood (Blood) Venipuncture / Unknown 11/23/2025 11:49 AM EST 11/23/2025 11:51 AM EST Tiffanie J Nuspl PA-C LAB BLOOD BKR ORDERABLES Fi nal Result Performing Organization Address [facility] de Phone Number [facility] [address] [place] [address], [place] [phone] * (ABNORMAL) Testosterone, Total (11/23/2025 11:49 AM EST) Testosterone 22(L) 193 - 740 ng/dL 11/23/2025 12:35 PM EST [facility] Blood (Blood) Venipuncture / Unknown 11/23/2025 11:49 AM EST 11/23/2025 11:51 AM EST Narrative [facility] - 11/23/2025 12:35 PM EST Test performed by Modria electrochemiluminescent immunoassay (ECLIA). Tiffanie Huntl PA-C LAB BLOOD BKR ORDERABLES Fi nal Result Performing Organization Address [facility] de Phone Number [facility] [address] [place] [address], [place] [phone] * MRI Spine (Neuro) Outside (No Interpretation) (10/05/2025 12:00 AM EST) Narrative [facility] - 10/07/2025 1:34 PM EST This study is for PACS storage only and not for interpretation. us Aman Madsen Chi, MD, MPH IMG OUTSIDE IMAGING W/OUT INT ERPRETATION Final Result Performing Organization Address [facility] de Phone Number [facility] * TSH (02/12/2024 9:36 AM EDT) TSH 1.81 0.27 - 4.20 uIU/mL [facility] LIC# [id number] Blood 02/12/2024 9:36 AM EDT 02/12/2024 9:39 AM EDT Sunita Goode Sampson TECHNICAL RECRUITER LAB BLOOD BKR ORDERAB LES Final Result [facility]# [id number] [address] [place] [address], [place] from Last 3 Months or Most Recently Relevant to Health Maintenance Insurance [employer] SUPPLEMENT MEDICARE PART A & B [employer] MEDEX SUPPLEMENT MEDICARE PART A & B [employer] MEDEX SUPPLEMENT MEDICARE PART A & B [employer] MEDEX SUPPLEMENT MEDICARE PART A & [place] [place] [address] MEDEX SUPPLEMENT MEDICARE PART A & B [employer] MEDEX SUPPLEMENT MEDICARE PART A & B [employer]se MEDEX SUPPLEMENT MEDICARE PART A & B [employer] MEDEX SUPPLEMENT MEDICARE PART A & B Instagram [employer] SUPPLEMENT MEDICARE PART A & B Care Teams Health Professional Relationship Specialty Start Date End Date Kirstin Brooks MD [address] [place] [phone] PCP - General Internal Medicine 01/03/22 Krystyna Bowles MD, PhD [address] [place] [address] [email or web address] Radiation Oncology 07/25/23 Kota Self MD [address] [place] [phone] [email or web address] Radiation Oncology 09/03/23 Audrey Bush MD, MPH [address] [place] [id number] [email or web address]. [facility] Medical Oncology 09/03/23 Renee Hood RN [address] [place] [address] [email or web address] Primary Infusion Nurse 10/21/24 Shreya Solomon RN [address] [place] [address] [email or web address] Associate Infusion Nurse 10/21/24 Francheska Jacobs, ELANA [address] [place] [address] [email or web address] Associate Infusion Nurse 10/21/24 Prema Lee RN [address] [place] [address] [email or web address] Associate Infusion Nurse 01/19/25 Shivam De Jesus MD, MINDI [address] [place] [address] [email or web address] Diagnostic Radiology 03/23/25 Additional Source Comments The information contained in this document represents components of the legal health record. It is not the complete legal health record.[facility]
--- OUTSIDE RECORDS SUMMARY | 2025-11-29 15:27 | XMS_ITS | Encounter Summary ---
Author Organization [facility] Address [address] [facility] [address] [place] [address] Phone Care Team Providers Care Line Assigner Name Role Phone Kirstin Brooks MD Primary Care Provider [phone] Self-Referred, Patient Unavailable Unavailab Krystyna Kaiser MD, PhD Unavailable [phone] Kota Self MD Unavailable Audrey Bush MD , MPH Unavailable Renee Hood RN Unavailable Brina [email or web address] Shreya Solomon RN Unavailable jose [email or web address] Francheska Jacobs RN Unavailable YOLA@ [email or web address] Prema Lee RN Unavailable Efe [email or web address] Shivam De Jesus MD, MINDI Unavailable [phone] Encounter Details Date Type Department Care Team (Late st Contact Info) Description 05/10/2023 Procedure Pass [facility] [address] [facility] 4th [place] [address] Social History Tobacco Use Types [...] 8:10 AM EDT Blood Draw Laboratory Services, [facility] at [address] [place] [address] Audrey Bush MD, MPH [address] [place] [address] [email or web address] 02/16/2026 9:30 AM EDT Office Visit [facility], [facility] at [address] [place] [address] Audrey Bush MD, MPH [address] [place] [address] [email or web address] documented as of this encounter Visit Diagnoses Not on filedocumented in this encounter Additional Health Concerns Infection Onset Date Last Indicated Resolved Time COVID-19 Comment:Sx onset 09/18/23 Test 09/20/23 09/18/2023 09/19/2023 10/08/2023 1:[address] documented as of this encounter Care Teams Line Assigner Relationship Specialty Start Date End Date Kirstin Brooks MD [address] [place] [phone] PCP - General Internal Medicine 01/03/22 Self-Referred, Patient Referring Physician 04/18/23 09/02/23 Krystyna Bowles MD, PhD [address] [place] [phone] [email or web address] U Radiation Oncology 07/25/23 Kota Self MD [address] [place] [address] [email or web address] Radiation Oncology 09/03/23 Audrey Bush MD, MPH [address] [place] [id number] [email or web address]. [facility] Medical Oncology 09/03/23 Renee Hood, RN [address] [place] [address] [email or web address] Primary Infusion Nurse 10/21/24 Shreya Solomon, ELANA [address] [place] [address] [email or web address] Associate Infusion Nurse 10/21/24 Francheska Jacobs, ELANA [address] [place] [address] [email or web address] Associate Infusion Nurse 10/21/24 Prema Lee RN [address] [place] [phone] [email or web address] Associate Infusion Nurse 01/19/25 Shivam De Jesus MD, MINDI [address] [place] [phone] [email or web address] Diagnostic Radiology 03/23/25 documented as of this encounter Additional Source Comments The information contained in this document represents components of the legal health record. It is not the complete legal health record.[facility]
--- OUTSIDE RECORDS SUMMARY | 2025-11-29 15:27 | XMS_ITS | Clinical Summary ---
Author Organization [facility] Address [address] [place] [address] Phone Care Team Providers Care Tag Meter Operator Name Role Phone Kirstin Brooks MD [...] Encounters Date Type Department Care Team Description 11/11/2025 8:30 AM EST Ancillary Procedure [facility] - [address] [place] [address] Screening for AAA (aortic abdominal aneurysm); PVC's (premature ventricular contractions); Permanent atrial fibrillation ([facility] V24, [facility] V28); Syncope and collapse; History of tobacco abuse 11/11/2025 Telephone [facility] - [address] [place] [phone] Guera Blum PA 11/11/2025 Telephone [facility] - [address] [place] [phone] Tashia Ahmadi 10/01/2025 Telephone [facility] - [address] [place] [phone] Luis Montoya MD 09/20/2025 11:54 AM EDT - 09/20/2025 11:59 PM EDT Hospital Encounter [facility] Xray [address] [place] [phone] Pain in thoracic spine; Low back pain Discharge Disposition: Home or Self Care 09/20/2025 11:53 AM EDT - 09/20/2025 11:59 PM EDT Hospital Encounter [facility] Xray [address] [place] [phone] Pain in thoracic spine; Low back pain Discharge Disposition: Home or Self Care from Last 3 Months Immunizations Immunization Administration Dates Next Due Pfizer SARS-CoV-2 COVID-19, mRNA, LNP-S, preservative free 01/12/2021,12/22/2020 Surgical History Surgery Date Site/Laterality Comments GASTRIC BAND ADJUSTMENT and removal CARDIOVERSION CARDIAC ABLATION CERVICAL FUSION Medical History Medical History Date Comments Hypertension Hyperlipidemia Diabetes mellitus ([facility] V 24, [facility] V28) GERD (gastroesophageal reflux disease) Atrial fibrillation ([facility] V24, [facility] V28) Sleep apnea COPD (chronic obstructive pu lmonary disease) ([facility] V24, [facility] V28) Asthma Prostate cancer ([facility] V24, [facility] V28[facility] Type 2 diabetes mellitus ( S/[facility] V24, [facility] V28) without complication, withou t long-term current [...] Description 02/21/2026 1:40 PM EDT Office Visit [facility] - [facility] [address] [facility] [address] [place] [phone] Guera Blum PA [address] [place] [address] [address] [place] [phone] 02/23/2026 3:00 PM EDT Office Visit Pulmonology - [place] [address] [facility] [address] [place] [phone] Irma Patterson MD [address] [place] [phone] Health Maintenance Due Date Last Done Comments Diabetes: Annual Foot Exam 1965 Diabetes: Annual Retina Eye Exam 1965 Pneumococcal Vaccine: 50+ Years (1 of 2 - PCV) 1974 Falls Risk Assessment 11/04/2022 Hepatitis C Screening [...] Completed 08/09/2025, , 10/10/2023, Additional history exists Abdominal Aortic Aneurysm (AAA) Screen Completed 11/11/2025 HIB Vaccines Aged Out No longer eligi [...] Procedure Name Priority Date/Time Associated Diagnosis Comments VAS US DUPLEX AAA SCREENING Routine 11/11/2025 8:40 AM EST Screening for AAA (aortic abdominal aneurysm) PVC's (premature ventricular contractions) Permanent atrial fibrillation (CMS/HCC V24, CMS/HCC V28) Syncope and collapse History of tobacco abuse XR THORACIC SPINE 2 VIEWS Routine 09/20/2025 12:17 PM EDT Pain in thoracic spine Low back pain XR LUMBAR SPINE 2-3 VIEWS Routine 09/20/2025 12:17 PM EDT Pain in thoracic spine Low back pain MICROALBUMIN CREATININE URINE RATIO Routine 07/29/2025 9:36 AM EDT Diabetes mellitus (CMS/HCC V24, [facility] V28) Hyperlipemia Routine general medical examination [...] Recently Relevant to Health Maintenance Results * Vascular US abdominal aorta aneurysm (AAA) screening (11/11/2025 8:40 AM EST) Abdominal dist aorta AP 1.66 cm [facility] Abdominal mid aorta AP 1.93 cm [facility] Abdominal prox aorta AP 2.45 cm [facility] Abdominal dist aorta clifton 56 cm/s [facility] Abdominal mid aorta clifton 58 cm/s [facility] Abdominal prox aorta clifton 67 cm/s [facility] Abdominal lt com iliac AP 1.39 cm [facility] Left Prox Common Iliac PSV 81 cm/s [facility] Abdominal rt com iliac AP 1.17 cm [facility] Right Prox Common Iliac PSV 72 cm/s [facility] Abdominal prox aorta trans 2.45 cm [facility] Proximal Aorta Long Diameter 2.45 cm [facility] Abdominal mid aorta trans 2.03 cm [facility] Mid Aorta Long Diameter 1.92 cm [facility] Abdominal dist aorta trans 1.86 cm [facility] Dist Aorta Long Diameter 1.66 cm [facility] Celiac Org PSV 197 cm/s [facility] Celiac Org EDV 53 cm/s [facility] SMA Org PSV 540 cm/s [facility] SMA Org EDV 97 cm/s [facility] Right Common Iliac Long Diameter 1.17 cm [facility] Left Common Iliac Long Diameter 1.36 cm [facility] Anatomical Region Laterality Modality Vascular, Abdomen Ultrasound Narrative 11/11/2025 2:29 PM EST The proximal segment of the abdominal aorta is ectatic. Bilateral common iliac arteries are normal in sizes and flow velocities. The superior mesenteric artery has significant elevated flow velocities, consistent with hemodynamically significant stenosis. Impression Stenosis of superior mesentery artery. Maintenance Trainer Details A cheema scale, color and doppler analysis ultrasound was performed. During the study longitudinal and transverse views were obtained. Continuous wave doppler and pulsed wave doppler was performed. Overall the study quality was technically difficult. Study was technically difficult due to: body habitus and bowel gas. us Luis Montoya MD CV VASCULAR PROCEDURES Fin al Result * XR Lumbar Spine 2-3 Views (09/20/2025 [...] Signed Date: 09/21/2025 08:54 ET Workstation ID: [id number] Transcribed By: Self Edit Transcribed Date: 09/21/2025 [...] Grade 1, 6.5 mm anterior spondylolisthesis of [id number] to L4 and grade 1, 4.6 mm anterior spondylolisthesis of [id number] to L5 are stable. Degenerative disc disease at L4-5 and L5-S1 isagain demonstrated. -------- FINAL REPORT -------- Dictated By: Gregory Reyes Dictated Date: 09/21/2025 08:51 ET Assigned Physician: Gregory Reyes Reviewed and Electronically Signed By: Gregory Reyes Signed Date: 09/21/2025 08:54 ET Workstation ID: [id number] Transcribed By: Self Edit Transcribed Date: 09/21/2025 [...] Signed Date: 09/21/2025 08:51 ET Workstation ID: [id number] Transcribed By: Self Edit Transcribed Date: 09/21/2025 [...] Signed Date: 09/21/2025 08:51 ET Workstation ID: [id number] Transcribed By: Self Edit Transcribed Date: 09/21/2025 08:50 ET Sam[facility] MONTESINOS IMG XR PROCEDURES Final Result * Lipid panel with reflex to direct LDL (07/29/2025 9:36 AM EDT) Cholesterol 124 0 - 200 mg/dL LAB CHEMISTRY METHOD 07/29/2025 10:46 AM EDT [facility] Triglycerides 125 0 - 150 mg/dL LAB CHEMISTRY METHOD 07/29/2025 10:46 AM EDT [facility] HDL 44 >=40 mg/dL LAB CHEMISTRY METHOD 07/29/2025 10:46 AM EDT [facility] LDL Calculated 55 0 - 100 mg/dL LAB CHEMISTRY METHOD 07/29/2025 10:46 AM EDT [facility] Comment:Estimated LDL Calcul ated using equation: Total cholesterol - HDL cholesterol - (Triglycerides/5) VLDL Cholesterol Yoshi 25 mg/dL LAB CHEMISTRY METHOD 07/29/2025 10:46 AM EDT [facility] Non HDL Chol. (LDL+VLDL) 80 <145 mg/dL LAB CHEMISTRY METHOD 07/29/2025 10:46 AM EDT [facility] Chol/HDL Ratio 2.8 0.0 - 4.4 LAB CHEMISTRY METHOD 07/29/2025 10:46 AM EDT [facility] Blood Venous blood specimen / Unknown Venipuncture / Unknown 07/29/2025 9:36 AM EDT 07/29/2025 9:48 AM EDT us Samanta MONTESINOS LAB BLOOD ORDERABLES Final Resul t Performing Organization Address [facility]/ZIP Co de Phone Number [facility] [address] [place] [address], [place] [phone] * (ABNORMAL) Microalbumin creatinine urine ratio (07/29/2025 9:36 AM EDT) Creatinine, Urine 42.0 mg/dL LAB CHEMISTRY METHOD 07/29/2025 2:20 PM EDT [facility] Microalb, Ur 30.4(H) 0.0 - 29.0 mg/L LAB CHEMISTRY METHOD 07/29/2025 2:20 PM EDT [facility] Microalb/Crea t Ratio 72(H) <30 mg/g creat LAB CHEMISTRY METHOD 07/29/2025 2:20 PM EDT [facility] Urine Urine specimen obtained by clean catch procedure / Unknown Non-blood Collection / Unknown 07/29/2025 9:36 AM EDT 07/29/2025 11:31 AM EDT us Samanta MONTESINOS LAB URINE ORDERABLES Final Resul t Performing Organization Address City/[facility]/ZIP Co de Phone Number [facility] [address] [place] [address], [place] [phone] * Hemoglobin A1c (07/29/2025 9:36 AM EDT) [facility] Hemoglobin A1C 6.0 <6.5 % LAB CHEMISTRY METHOD 07/29/2025 1:59 PM EDT [facility] Mean Bld Glu Estim. 126 mg/dL LAB CHEMISTRY METHOD 07/29/2025 1:59 PM EDT [facility] Blood Venous blood specimen / Unknown Venipuncture / Unknown 07/29/2025 9:36 AM EDT 07/29/2025 9:48 AM EDT Samanta MONTESINOS LAB BLOOD ORDERABLES Final Resul t [facility] [address] [place] [address], [place] [phone] * (ABNORMAL) Comprehensive metabolic panel (07/29/2025 9:36 AM EDT) [facility] Sodium 142 133 - 145 mmol/L LAB CHEMISTRY METHOD 07/29/2025 10:46 AM [facility] Potassium 4.3 3.5 - 5.5 mmol/L LAB CHEMISTRY METHOD 07/29/2025 10:46 AM [facility] Chloride 107 96 - 110 mmol/L LAB CHEMISTRY METHOD 07/29/2025 10:46 AM [facility] CO2 28 21 - 32 mmol/L LAB CHEMISTRY METHOD 07/29/2025 10:46 AM [facility] Anion Gap 7 3 - 11 LAB CHEMISTRY METHOD 07/29/2025 10:46 AM [facility] Glucose 110(H) 70 - 100 mg/dL LAB CHEMISTRY METHOD 07/29/2025 10:46 AM [facility] BUN 11 5 - 25 mg/dL LAB CHEMISTRY METHOD 07/29/2025 10:46 AM [facility] Creatinine 1.26 0.70 - 1.30 mg/dL LAB CHEMISTRY METHOD 07/29/2025 10:46 AM [facility] eGFR 62 >=60 mL/min/1. 73m2 LAB CHEMISTRY METHOD 07/29/2025 10:46 AM [facility] Comment:Calculation based on the Chronic Kidney Disease Epidemiology Collaboration (CKD-EPI) equation refit without adjustment for race. BUN/Creatinine Ratio 8.7 LAB CHEMISTRY METHOD 07/29/2025 10:46 AM [facility] Calcium 9.5 8.5 - 10.5 mg/dL LAB CHEMISTRY METHOD 07/29/2025 10:46 AM [facility] AST (SGOT) 17 10 - 42 unit/L LAB CHEMISTRY METHOD 07/29/2025 10:46 AM [facility] ALT (SGPT) 17 10 - 60 unit/L LAB CHEMISTRY METHOD 07/29/2025 10:46 AM [facility] Alkaline Phosphatase 94 42 - 121 unit/L LAB CHEMISTRY METHOD 07/29/2025 10:46 AM [facility] Total Protein 7.0 6.0 - 8.0 g/dL LAB CHEMISTRY METHOD 07/29/2025 10:46 AM [facility] Albumin 3.9 3.2 - 5.0 g/dL LAB CHEMISTRY METHOD 07/29/2025 10:46 AM [facility] Total Bilirubin 0.6 0.0 - 1.4 mg/dL LAB CHEMISTRY METHOD 07/29/2025 10:46 AM [facility] Blood Venous blood specimen / Unknown Venipuncture / Unknown 07/29/2025 9:36 AM EDT 07/29/2025 9:48 AM EDT Sam[facility] MONTESINOS LAB BLOOD ORDERABLES Final Resul t [facility] [address] [place] [address], * COLONOSCOPY Anesthesia - MAC; [facility] ENDOSCOPY (10/14/2024 9:58 AM EST) Anatomical Region [...] Narrative 10/14/2024 10:01 AM EST [facility] GI Patient Name: Jose Manuel Kam [...] verified by the physician, the nurse, the processing tech and the psychiatric technician assistant in the pre-procedure area in the endoscopy [...] was minimal. Procedure Code(s): --- Professional --- 53960, 59, Colonoscopy, flexible; with control of bleeding, any method 14649, Colonoscopy, flexible; with removal of tumor(s), polyp(s), or other lesion(s) by snare technique Diagnosis Code(s): --- Professional --- D12.3, Benign neoplasm of transverse colon (hepatic flexure or splenic flexure) K92.1, Melena (includes Hematochezia) CPT copyright 2020 [employer]. All rights reserved. The codes documented in this report are preliminary and upon marketing services rep review may be revised to meet current compliance requirements. Garcia Vigil MD 10/14/2024 10:01:37 AM This report has been signed electronically.Garcia Vigil MD Number of Addenda: 0 Note Initiated On: 10/14/2024 9:30 AM Scope Withdrawal Time: 0 hours 17 minutes 21 seconds Scope In: 9:36:33 AM Scope Out: 9:57:43 AM Endoscopy Department at [facility] - [address] [place] [phone] Procedure Note Garcia Vigil MD - 10/14/2024 [facility] GI Patient Name: Jose Manuel Kam [...] the physician, the nurse, theanesthetist and the psychiatric technician assistant in the pre-procedure area in the endoscopy [...] loss wasminimal. Procedure Code(s): --- Professional --- 09328, 59, Colonoscopy, flexible; with control of bleeding, any method 41533, Colonoscopy, flexible; with removal of tumor(s), polyp(s), or other lesion(s) by snare technique Diagnosis Code(s): --- Professional --- D12.3, Benign neoplasm of transverse colon (hepatic flexure or splenic flexure) K92.1, Melena (includes Hematochezia) CPT copyright 2020 [employer]. All rights reserved. The codes documented in this report are preliminary and upon marketing services rep reviewmay be revised to meet current compliance requirements. Garcia Vigil MD 10/14/2024 10:01:37 AM This report has been signed electronically.Garcia Vigil MD Number of Addenda: 0 Note Initiated On: 10/14/2024 9:30 AM Scope Withdrawal Time: 0 hours 17 minutes 21 seconds Scope In: 9:36:33 AM Scope Out: 9:57:43 AM Endoscopy Department at [facility] - [address] [place] [phone] IMPRESSION: - Three 2 to 6 mm [...] to [place] [id number] [address] [facility] [place] [id number] Care Teams Tag Meter Operator Relationship Specialty Start Date End Date Kirstin Brooks MD [address] [place] [id number] PCP - General Internal Medicine 01/11/25
== END 2025-11-29 13:42 | disposition home or self-care (01) ==
LOC: HO.ACS 13:22
PROVIDERS: PCP Internal Medicine; Visit Provider Internal Medicine Medical Oncology
DX: Z79.01 Long term (current) use of anticoagulants (principal)

== ENCOUNTER → 2025-11-29 13:22 | Outpatient (BNVA) | payer MEDICARE, SELFPAY | PROVIDERS: PCP Internal Medicine; Visit Provider Internal Medicine Medical Oncology | DX: I48.92 Unspecified atrial flutter (principal); Z51.81 Encounter for therapeutic drug level monitoring; Z79.01 Long term (current) use of anticoagulants | CPT/HCPCS: 85610; 99211 ==